=== PATIENT | male | born 1935 | race Caucasian/White ===

== ENCOUNTER 2017-08-28 09:07 | Outpatient (RCR) | payer MEDICARE, SELFPAY ==
[2017-08-28 09:21] LABS: Prothrombin Time Fingerstick 35.1 SEC (11.9-14.4)
== END 2017-08-28 09:08 | disposition home or self-care (01) ==
LOC: LAB 09:07
PROVIDERS: Family Provider Family Medicine; PCP Family Medicine; Visit Provider Internal Medicine Cardiovascular Disease
DX: Z79.01 Long term (current) use of anticoagulants (principal)
CPT/HCPCS: 36416; 85610

== ENCOUNTER → 2017-10-19 13:27 | Outpatient (CLI) | payer MEDICARE, SELFPAY | PROVIDERS: Family Provider Family Medicine; PCP Family Medicine; Visit Provider Family Medicine | DX: L02.91 Cutaneous abscess, unspecified (principal) | CPT/HCPCS: 87070; 87205 ==

== ENCOUNTER 2017-10-20 13:37 | Outpatient (RCR) | payer MEDICARE, SELFPAY ==
[2017-10-20 13:51] LABS: Prothrombin Time Fingerstick 26.9 SEC (11.9-14.4)
== END 2017-10-20 15:00 | disposition home or self-care (01) ==
LOC: LAB 13:37
PROVIDERS: Family Provider Family Medicine; PCP Family Medicine; Visit Provider Internal Medicine Cardiovascular Disease
DX: Z79.01 Long term (current) use of anticoagulants (principal)
CPT/HCPCS: 36416; 85610

== ENCOUNTER 2017-10-30 12:49 | Outpatient (RCR) | payer MEDICARE, SELFPAY ==
[2017-10-30 13:06] LABS: Prothrombin Time Fingerstick 38.3 SEC (11.9-14.4)
== END 2017-10-30 13:00 | disposition home or self-care (01) ==
LOC: LAB 12:49
PROVIDERS: Family Provider Family Medicine; PCP Family Medicine; Visit Provider Internal Medicine Cardiovascular Disease
DX: R69 Illness, unspecified (principal)
CPT/HCPCS: 36416; 85610

== ENCOUNTER 2017-11-06 08:30 | Outpatient (RCR) | payer MEDICARE, SELFPAY ==
[2017-10-23 08:29] VITALS: BP 149/69; PULSE 69; RESP 18; TEMP 37.1; BMI 28.4
--- NOTE | 2017-10-23 10:50 | PCM.WC.HP ---
(1) Hematoma of left lower extremity Status: Acute Current Visit: Yes Qualifiers: Encounter type: initial encounter Qualified Code(s): S80.12XA - Contusion of left lower leg, initial encounter Code(s): S80.12XA - Contusion of left lower leg, initial encounter (2) Hematoma of lower limb Status: Acute Current Visit: Yes Code(s): S80.10XA - Contusion of unspecified lower leg, initial encounter (3) Chronic atrial fibrillation Status: Chronic Current Visit: Yes Code(s): I48.2 - Chronic atrial fibrillation (4) H/O aortic valve replacement Status: Chronic Current Visit: Yes Code(s): Z95.2 - Presence of prosthetic heart valve Comment: 04/30/2001 @ [facility] (5) History of Coumadin therapy Status: Chronic Current Visit: Yes Code(s): Z92.29 - Personal history of other drug therapy History of Present Illness Date of Service: 10/23/17 Chief Complaint: Follow-up on a hematoma on the left lower extremity History of Wound: 81-year-old white male that was shopping in a store on October 15, 2017 when a tile on his lower extremity and caused a bruise. Patient is on Coumadin therapy and therefore it ballooned out. Slight abrasion to the top of the skin and was seen by his family doctor who put a needle and took some blood out and cultured for no bacteria found. His started on antibiotics anyways and told him he needed to go to the wound center. We proceeded to numb the area and I&D it with a 15 blade half-iniguez cut around to extricate the blood clot and closed with 4-0 nylon after much irrigation with normal saline with 4 sutures. She tolerated procedure well will follow up with nurse visit in 1 week for suture removal possibly or in 2 weeks to see if it is healing well. Compression will be applied till healed. 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) Hyperlipidemia (Chronic) Hypertension (Chronic) Atherosclerotic heart disease of [place] coronary artery without angina pectoris (Chronic) H/O aortic valve replacement (Chronic) 04/30/2001 @ [facility] Presence of aortocoronary bypass graft (Chronic) [facility] use of drug (Chronic) Anticoagulants Aortic valve stenosis, rheumatic (Chronic) History of radiofrequency ablation procedure for cardiac arrhythmia (Chronic) Chronic atrial fibrillation (Chronic) Hypokalemia (Chronic) Localized edema (Chronic) History of Coumadin therapy (Chronic) Chronic diastolic heart failure (Chronic) Other secondary pulmonary hypertension (Chronic) Past Medical History: Hematoma lower extremity Allergies/Adverse Reactions: Allergies No Known Allergies Allergy (Verified 10/06/17 14:07) Home Medications: Ambulatory Orders Medication Instructions Recorded Aspirin E.C. [Ecotrin] 81 mg PO QHS 01/12/14 Pravastatin [Pravachol] 80 mg PO QHS 01/12/14 furosemide 40 mg tablet 40 mg PO BREAKFAST 10/01/17 losartan 100 mg tablet 100 mg PO QDAY 10/01/17 losartan 100 mg tablet 100 mg PO QDAY 10/01/17 magnesium oxide 400 mg tablet 400 mg PO BREAKFAST tab 10/01/17 potassium chloride ER 20 mEq 20 meq PO BREAKFAST 10/01/17 tablet,extended release amlodipine 10 mg tablet 10 mg PO QDAY 10/06/17 warfarin 4 mg tablet 4 mg PO QHS 10/06/17 amoxicillin 500 mg capsule 500 mg PO .COMPLEX PRN #4 cap 10/20/17 Lives: Spouse/ Significant Other Smoking Status: Never smoker Tobacco Use: Non-smoker Alcohol: None Drugs: None Review of Systems Constitutional: Denies: Chills, Fever Eyes: Denies: Blurred vision, Drainage, Pain HEENT: Denies: Difficulty Hearing, Difficulty Swallowing, Sore Throat, Visual Changes Cardiovascular: Denies: Chest Pain, Palpitations, Syncope Respiratory: Denies: Cough, Shortness of Breath Gastrointestinal: Denies: Abdominal Pain, Nausea, Vomiting Genitourinary: Denies: Dysuria, Frequency Musculoskeletal: Denies: Joint Pain, Muscle pain Skin: Reports: Wounds - Bump on his lower extremity. Denies: Jaundice, Rash Neurological: Denies: Balance problems, Change in Speech, Difficulty swallowing, Focal weakness Psychiatric: Denies: Anxiety, Depression Endocrine: Denies: Change in Body Habitus Hematologic/ Lymphatic: Denies: Adenopathy - Physical Exam Vital Signs Temp Pulse Resp BP 98.7 F 69 18 149/69 H 10/23/17 08:29 10/23/17 08:29 10/23/17 08:29 10/23/17 08:29 General: Oriented x3, Cooperative, Well developed HEENT: Atraumatic, PERRLA Oral: Moist Mucosa Neck: Supple, No JVD Lungs: Clear to auscultation, Normal air movement Cardiovascular: Regular rate, Regular Rhythm Abdomen: Bowel Sounds Present, Soft, Non Tender, No Hepato-splenomegaly Extremities: No clubbing, Edema Skin: Ulcer/ Wound - A palpable firm hematoma on the right lower extremity Wound Measurements and Assessment WC - Nurse 1 - General Ulcer Measurement Start: 10/23/17 08:07 Freq: Status: Active Protocol: Activity Type Activity Date Activity User E-Sign Co-Sign Detail Recorded Client Recorded Date Recorded By Document 10/23/17 08:29 DV [id number] 10/23/17 08:53 DV 10/23/17 08:29 Wound Center Nurse 1 [Ulcer Assessment] #1 Right [place] -Combined with other wound No -Current Size (cm) - Length 2.5 -Current Size (cm) - Width 1.5 -Current Size (cm) - Depth 0.1 -Total Square Cm 3.75 -Date of Last Picture (Recall this 10/23/17 field) -Photo Taken Yes -Epithelialization None Present -Tunneling No -Undermining/Tunneling No -Circular Undermining No -Classification - Thickness Full Thickness without Exposed Support Structure -Exudate Amt None Present (0 %) -Wound Margin Distinct, Outline Attached -Granulation Amt None Present (0 %) -Granulation Quality N/A -Slough/Fibrin Yes -Necrosis Amt Large (67-100%) -Necrotic Tissue Type Adherent Slough -Structure Exposed N/A -Texture (Nirali-wound Skin Appearance) Assessed Localized Edema -Moisture (Nirali-wound Skin Appearance No Abnormality ) Assessed -Color (Nirali-wound Skin Appearance) Assessed Hemosiderin Staining -Temperature (Nirali-wound Skin No Abnormality Appearance) (Pt Warm) -Ulcer Cleansing Rinsed/ Irrigated with Saline -Foul Odor after Cleansing No -Anesthetic Used 4% Lidocaine Solution [Edema Assessment] -Lower Limb Edema Present Yes -Right Calf (cm) 41.5 -Right Ankle (cm) 24.5 -Left Calf (cm) 38.2 -Left Ankle (cm) 24.0 WC - Nurse 2 - General Ulcer CM Notes Start: 10/23/17 08:07 Freq: Status: Active Protocol: Activity Type Activity Date Activity User E-Sign Co-Sign Detail Recorded Client Recorded Date Recorded By Document 10/23/17 09:24 MW [id number] 10/23/17 09:41 MW 10/23/17 09:24 Wound Center Nurse 2 [Procedure/Treatment] #1 Right [place] -Time 09:24 -Correct Patient Yes -Correct Side, Site, Position Yes -Correct Procedure Yes -Procedure Performed Yes -Type of Procedure Incision & Debridement -Clinical Debridement Subcutaneous -Post Debridement Size (cm) - Length 2.5 -Post Debridement Size (cm) - Width 0.1 -Post Debridement Size (cm) - Depth 0.1 -Total Square Cm 0.25 -Wound/Ulcer Outcome Not Healed -Ulcer Cleansing Rinsed/ Irrigated with Saline -Foul Odor after Cleansing No -Bioengineered Tissue No -Bleeding Controlled with Pressure -Treatment Response Procedure Tolerated Well [See Physician Procedure note for Specifics] Pain Scale: 0-10 Numeric [Pain] -Is Patient Pain Free? Yes Musculoskeletal: No Tenderness to Palpation of Joints or Extremities Lymphatic: No Cervical, Supraclavicular, or Inguinal Adenopathy Neurological: Cranial nerves II-XII grossly intact, Neuro grossly intact Psych/Mental Status: Normal Affect, Appropriate Debridement Note Post-Debridement Measurements/Treatment WC - Nurse 2 - General Ulcer CM Notes Start: 10/23/17 08:07 Freq: Status: Active Protocol: Activity Type Activity Date Activity User E-Sign Co-Sign Detail Recorded Client Recorded Date Recorded By Document 10/23/17 09:24 MW [id number] 10/23/17 09:41 MW 10/23/17 09:24 Wound Center Nurse 2 #1 Right [place] -Time 09:24 -Correct Patient Yes -Correct Side, Site, Position Yes -Correct Procedure Yes -Procedure Performed Yes -Type of Procedure Incision & Debridement -Clinical Debridement Subcutaneous -Post Debridement Size (cm) - Length 2.5 -Post Debridement Size (cm) - Width 0.1 -Post Debridement Size (cm) - Depth 0.1 -Total Square Cm 0.25 -Wound/Ulcer Outcome Not Healed -Ulcer Cleansing Rinsed/ Irrigated with Saline -Foul Odor after Cleansing No -Bioengineered Tissue No -Bleeding Controlled with Pressure -Treatment Response Procedure Tolerated Well Pain Scale: 0-10 Numeric Is Patient Pain Free? Yes Wash the right lower leg with Hibiclens and made a half-iniguez incision 2-1/2 cm long along the edge of the contusion with a 15 blade. Remove the blood clot that was hampering healing and sutured closed after irrigation with normal saline with 4-0 nylon #4 sutures. Patient tolerated well Operative Diagnosis: I&D with a irrigation and suturing Assessment/Plan Active Problems (Last Updated 10/20/17 @ 17:27 by Britney Boyd) Hematoma of left lower extremity (Acute) Hematoma of lower limb (Acute) H/O aortic valve replacement (Chronic) 04/30/2001 @ [facility] Chronic atrial fibrillation (Chronic) History of Coumadin therapy (Chronic) Assessment: Right lower leg hematoma. I&D of a hematoma. Bilateral lower leg edema. A. fib. Coumadin therapy Plan: Wash leg with Hibiclens. Superficial wound care may use Aquacel. Cover with gauze and tape. Follow-up one week with a nurse visit for suture removal if necessary otherwise follow-up in 2 weeks. Double layer Tubigrip with Rui wrap over top for 48 hours then just the Tubigrip
--- NOTE | 2017-10-23 11:01 | HP.PCM_ITS ---
(1) Hematoma of left lower extremity Status: Acute Current Visit: Yes Qualifiers: Encounter type: initial encounter Qualified Code(s): S80.12XA - Contusion of left lower leg, initial encounter Code(s): S80.12XA - Contusion of left lower leg, initial encounter (2) Hematoma of lower limb Status: Acute Current Visit: Yes Code(s): S80.10XA - Contusion of unspecified lower leg, initial encounter (3) Chronic atrial fibrillation Status: Chronic Current Visit: Yes Code(s): I48.2 - Chronic atrial fibrillation (4) H/O aortic valve replacement Status: Chronic Current Visit: Yes Code(s): Z95.2 - Presence of prosthetic heart valve Comment: 04/30/2001 @ [facility] (5) History of Coumadin therapy Status: Chronic Current Visit: Yes Code(s): Z92.29 - Personal history of other drug therapy History of Present Illness Date of Service: 10/23/17 Chief Complaint: Follow-up on a hematoma on the left lower extremity History of Wound: 81-year-old white male that was shopping in a store on October 15, 2017 when a tile on his lower extremity and caused a bruise. Patient is on Coumadin therapy and therefore it ballooned out. Slight abrasion to the top of the skin and was seen by his family doctor who put a needle and took some blood out and cultured for no bacteria found. His started on antibiotics anyways and told him he needed to go to the wound center. We proceeded to numb the area and I&D it with a 15 blade half-iniguez cut around to extricate the blood clot and closed with 4-0 nylon after much irrigation with normal saline with 4 sutures. She tolerated procedure well will follow up with nurse visit in 1 week for suture removal possibly or in 2 weeks to see if it is healing well. Compression will be applied till healed. 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) Hyperlipidemia (Chronic) Hypertension (Chronic) Atherosclerotic heart disease of [place] coronary artery without angina pectoris (Chronic) H/O aortic valve replacement (Chronic) 04/30/2001 @ [facility] Presence of aortocoronary bypass graft (Chronic) [facility] use of drug (Chronic) Anticoagulants Aortic valve stenosis, rheumatic (Chronic) History of radiofrequency ablation procedure for cardiac arrhythmia (Chronic) Chronic atrial fibrillation (Chronic) Hypokalemia (Chronic) Localized edema (Chronic) History of Coumadin therapy (Chronic) Chronic diastolic heart failure (Chronic) Other secondary pulmonary hypertension (Chronic) Past Medical History: Hematoma lower extremity Allergies/Adverse Reactions: Allergies No Known Allergies Allergy (Verified 10/06/17 14:07) Home Medications: Ambulatory Orders Medication Instructions Recorded Aspirin E.C. [Ecotrin] 81 mg PO QHS 01/12/14 Pravastatin [Pravachol] 80 mg PO QHS 01/12/14 furosemide 40 mg tablet 40 mg PO BREAKFAST 10/01/17 losartan 100 mg tablet 100 mg PO QDAY 10/01/17 losartan 100 mg tablet 100 mg PO QDAY 10/01/17 magnesium oxide 400 mg tablet 400 mg PO BREAKFAST tab 10/01/17 potassium chloride ER 20 mEq 20 meq PO BREAKFAST 10/01/17 tablet,extended release amlodipine 10 mg tablet 10 mg PO QDAY 10/06/17 warfarin 4 mg tablet 4 mg PO QHS 10/06/17 amoxicillin 500 mg capsule 500 mg PO .COMPLEX PRN #4 cap 10/20/17 Lives: Spouse/ Significant Other Smoking Status: Never smoker Tobacco Use: Non-smoker Alcohol: None Drugs: None Review of Systems Constitutional: Denies: Chills, Fever Eyes: Denies: Blurred vision, Drainage, Pain HEENT: Denies: Difficulty Hearing, Difficulty Swallowing, Sore Throat, Visual Changes Cardiovascular: Denies: Chest Pain, Palpitations, Syncope Respiratory: Denies: Cough, Shortness of Breath Gastrointestinal: Denies: Abdominal Pain, Nausea, Vomiting Genitourinary: Denies: Dysuria, Frequency Musculoskeletal: Denies: Joint Pain, Muscle pain Skin: Reports: Wounds - Bump on his lower extremity. Denies: Jaundice, Rash Neurological: Denies: Balance problems, Change in Speech, Difficulty swallowing , Focal weakness Psychiatric: Denies: Anxiety, Depression Endocrine: Denies: Change in Body Habitus Hematologic/ Lymphatic: Denies: Adenopathy - Physical Exam Vital Signs Temp Pulse Resp BP 98.7 F 69 18 149/69 H 10/23/17 08:29 10/23/17 08:29 10/23/17 08:29 10/23/17 08:29 General: Oriented x3, Cooperative, Well developed HEENT: Atraumatic, PERRLA Oral: Moist Mucosa Neck: Supple, No JVD Lungs: Clear to auscultation, Normal air movement Cardiovascular: Regular rate, Regular Rhythm Abdomen: Bowel Sounds Present, Soft, Non Tender, No Hepato-splenomegaly Extremities: No clubbing, Edema Skin: Ulcer/ Wound - A palpable firm hematoma on the right lower extremity Wound Measurements and Assessment WC - Nurse 1 - General Ulcer Measurement Start: 10/23/17 08:07 Freq: Status: Active Protocol: Activity Type Activity Date Activity User E-Sign Co-Sign Detail Recorded Client Recorded Date Recorded By Document 10/23/17 08:29 DV [id number] 10/23/17 08:53 DV 10/23/17 08:29 Wound Center Nurse 1 [Ulcer Assessment] #1 Right [place] -Combined with other wound No -Current Size (cm) - Length 2.5 -Current Size (cm) - Width 1.5 -Current Size (cm) - Depth 0.1 -Total Square Cm 3.75 -Date of Last Picture (Recall this 10/23/17 field) -Photo Taken Yes -Epithelialization None Present -Tunneling No -Undermining/Tunneling No -Circular Undermining No -Classification - Thickness Full Thickness without Exposed Support Structure -Exudate Amt None Present (0 %) -Wound Margin Distinct, Outline Attached -Granulation Amt None Present (0 %) -Granulation Quality N/A -Slough/Fibrin Yes -Necrosis Amt Large (67-100%) -Necrotic Tissue Type Adherent Slough -Structure Exposed N/A -Texture (Nirali-wound Skin Appearance) Assessed Localized Edema -Moisture (Nirali-wound Skin Appearance No Abnormality ) Assessed -Color (Nirali-wound Skin Appearance) Assessed Hemosiderin Staining -Temperature (Nirali-wound Skin No Abnormality Appearance) (Pt Warm) -Ulcer Cleansing Rinsed/ Irrigated with Saline -Foul Odor after Cleansing No -Anesthetic Used 4% Lidocaine Solution [Edema Assessment] -Lower Limb Edema Present Yes -Right Calf (cm) 41.5 -Right Ankle (cm) 24.5 -Left Calf (cm) 38.2 -Left Ankle (cm) 24.0 WC - Nurse 2 - General Ulcer CM Notes Start: 10/23/17 08:07 Freq: Status: Active Protocol: Activity Type Activity Date Activity User E-Sign Co-Sign Detail Recorded Client Recorded Date Recorded By Document 10/23/17 09:24 MW [id number] 10/23/17 09:41 MW 10/23/17 09:24 Wound Center Nurse 2 [Procedure/Treatment] #1 Right [place] -Time 09:24 -Correct Patient Yes -Correct Side, Site, Position Yes -Correct Procedure Yes -Procedure Performed Yes -Type of Procedure Incision & Debridement -Clinical Debridement Subcutaneous -Post Debridement Size (cm) - Length 2.5 -Post Debridement Size (cm) - Width 0.1 -Post Debridement Size (cm) - Depth 0.1 -Total Square Cm 0.25 -Wound/Ulcer Outcome Not Healed -Ulcer Cleansing Rinsed/ Irrigated with Saline -Foul Odor after Cleansing No -Bioengineered Tissue No -Bleeding Controlled with Pressure -Treatment Response Procedure Tolerated Well [See Physician Procedure note for Specifics] Pain Scale: 0-10 Numeric [Pain] -Is Patient Pain Free? Yes Musculoskeletal: No Tenderness to Palpation of Joints or Extremities Lymphatic: No Cervical, Supraclavicular, or Inguinal Adenopathy Neurological: Cranial nerves II-XII grossly intact, Neuro grossly intact Psych/Mental Status: Normal Affect, Appropriate Debridement Note Post-Debridement Measurements/Treatment WC - Nurse 2 - General Ulcer CM Notes Start: 10/23/17 08:07 Freq: Status: Active Protocol: Activity Type Activity Date Activity User E-Sign Co-Sign Detail Recorded Client Recorded Date Recorded By Document 10/23/17 09:24 MW [id number] 10/23/17 09:41 MW 10/23/17 09:24 Wound Center Nurse 2 #1 Right [place] -Time 09:24 -Correct Patient Yes -Correct Side, Site, Position Yes -Correct Procedure Yes -Procedure Performed Yes -Type of Procedure Incision & Debridement -Clinical Debridement Subcutaneous -Post Debridement Size (cm) - Length 2.5 -Post Debridement Size (cm) - Width 0.1 -Post Debridement Size (cm) - Depth 0.1 -Total Square Cm 0.25 -Wound/Ulcer Outcome Not Healed -Ulcer Cleansing Rinsed/ Irrigated with Saline -Foul Odor after Cleansing No -Bioengineered Tissue No -Bleeding Controlled with Pressure -Treatment Response Procedure Tolerated Well Pain Scale: 0-10 Numeric Is Patient Pain Free? Yes Wash the right lower leg with Hibiclens and made a half-iniguez incision 2-1/2 cm long along the edge of the contusion with a 15 blade. Remove the blood clot that was hampering healing and sutured closed after irrigation with normal saline with 4-0 nylon #4 sutures. Patient tolerated well Operative Diagnosis: I&D with a irrigation and suturing Assessment/Plan Active Problems (Last Updated 10/20/17 @ 17:27 by Britney Boyd) Hematoma of left lower extremity (Acute) Hematoma of lower limb (Acute) H/O aortic valve replacement (Chronic) 04/30/2001 @ [facility] Chronic atrial fibrillation (Chronic) History of Coumadin therapy (Chronic) Assessment: Right lower leg hematoma. I&D of a hematoma. Bilateral lower leg edema. A. fib. Coumadin therapy Plan: Wash leg with Hibiclens. Superficial wound care may use Aquacel. Cover with gauze and tape. Follow-up one week with a nurse visit for suture removal if necessary otherwise follow-up in 2 weeks. Double layer Tubigrip with Rui wrap over top for 48 hours then just the Tubigrip
[2017-10-30 12:37] VITALS: BP 149/78; PULSE 92; RESP 16; TEMP 36.4; BMI 28.4
[2017-11-06 08:46] VITALS: BP 152/74; PULSE 81; RESP 18; TEMP 36.8; BMI 28.4
--- NOTE | 2017-11-06 09:58 | PN.PCM_ITS ---
(1) Hematoma of left lower extremity Status: Acute Current Visit: Yes Qualifiers: Encounter type: initial encounter Qualified Code(s): S80.12XA - Contusion of left lower leg, initial encounter Code(s): S80.12XA - Contusion of left lower leg, initial encounter (2) Hematoma of lower limb Status: Acute Current Visit: Yes Code(s): S80.10XA - Contusion of unspecified lower leg, initial encounter (3) Chronic atrial fibrillation Status: Chronic Current Visit: Yes Code(s): I48.2 - Chronic atrial fibrillation (4) H/O aortic valve replacement Status: Chronic Current Visit: Yes Code(s): Z95.2 - Presence of prosthetic heart valve Comment: 04/30/2001 @ [facility] (5) History of Coumadin therapy Status: Chronic Current Visit: Yes Code(s): Z92.29 - Personal history of other drug therapy Type of Wound Date of Service: 11/06/17 Chief Complaint: Follow-up on a hematoma on the left lower extremity History of Wound: 81-year-old white male that was shopping in a store on October 15, 2017 when a tile on his lower extremity and caused a bruise. Patient is on Coumadin therapy and therefore it ballooned out. Slight abrasion to the top of the skin and was seen by his family doctor who put a needle and took some blood out and cultured for no bacteria found. His started on antibiotics anyways and told him he needed to go to the wound center. We proceeded to numb the area and I&D it with a 15 blade half-iniguez cut around to extricate the blood clot and closed with 4-0 nylon after much irrigation with normal saline with 4 sutures. She tolerated procedure well will follow up with nurse visit in 1 week for suture removal possibly or in 2 weeks to see if it is healing well. Compression will be applied till healed. Progress of Wound: Last week the 4 sutures were removed patient tolerated well skin well approximated. Now patient has a hardened good scab over top it is not soft or mushy. No odors slight redness around the area but no pain or warmth to touch. She is leaving town for approximately 5 weeks to go to [place] will follow up with patient when he returns. Patient was advised to dry the scab before going to use povidone iodine and just the scab area not on the good skin cover with a dry dressing and continue using the double layer Tubigrip's until healed follow-up in 5 weeks. - Physical Exam Vital Signs Temp Pulse Resp BP 98.2 F 81 18 152/74 H 11/06/17 08:46 11/06/17 08:46 11/06/17 08:46 11/06/17 08:46 General: Oriented x3, Cooperative, Well developed HEENT: Atraumatic, PERRLA Oral: Moist Mucosa Neck: Supple, No JVD Lungs: Clear to auscultation, Normal air movement Cardiovascular: Regular rate, Regular Rhythm Abdomen: Bowel Sounds Present, Soft, Non Tender, No Hepato-splenomegaly Extremities: No clubbing, No edema, - - Right diaz traumatic other Skin: Ulcer/ Wound Wound Measurements and Assessment WC - Nurse 1 - General Ulcer Measurement Start: 10/23/17 08:07 Freq: Status: Active Protocol: Activity Type Activity Date Activity User E-Sign Co-Sign Detail Recorded Client Recorded Date Recorded By Document 11/06/17 08:46 [id number] 11/06/17 08:47 11/06/17 08:46 Wound Center Nurse 1 [Ulcer Assessment] #1 Right Diaz -Combined with other wound No -Current Size (cm) - Length 2.7 -Current Size (cm) - Width 1.8 -Current Size (cm) - Depth 0.1 -Total Square Cm 4.86 -Photo Taken No -Epithelialization None Present -Tunneling No -Undermining/Tunneling No -Circular Undermining No -Classification - Thickness Full Thickness without Exposed Support Structure -Exudate Amt Small (1-33%) -Exudate Type Serosanguineous -Wound Margin Distinct, Outline Attached -Granulation Amt None Present (0 %) -Granulation Quality N/A -Slough/Fibrin Yes -Necrosis Amt Large (67-100%) -Necrotic Tissue Type Eschar -Structure Exposed Fascia Fat Layer Exposed -Texture (Nirali-wound Skin Appearance) Localized Edema Scarring -Moisture (Nirali-wound Skin Appearance Dry/Scaly ) -Color (Nirali-wound Skin Appearance) Erythema -Temperature (Nirali-wound Skin No Abnormality Appearance) (Pt Warm) -Tenderness on Palpation (Nirali-wound No Skin Appearance) -Ulcer Cleansing Rinsed/ Irrigated with Saline -Foul Odor after Cleansing No -Anesthetic Used 5% Lidocaine Gel [Edema Assessment] -Lower Limb Edema Present Yes -Right Calf (cm) 38.0 -Right Ankle (cm) 23.5 WC - Nurse 2 - General Ulcer CM Notes Start: 10/23/17 08:07 Freq: Status: Active Protocol: Activity Type Activity Date Activity User E-Sign Co-Sign Detail Recorded Client Recorded Date Recorded By Document 11/06/17 09:24 MW [id number] 11/06/17 09:25 MW 11/06/17 09:24 Wound Center Nurse 2 [Procedure/Treatment] #1 Right Diaz -Time 09:24 -Correct Patient Yes -Correct Side, Site, Position Yes -Correct Procedure Yes -Procedure Performed No -Post Debridement Size (cm) - Length 2.7 -Post Debridement Size (cm) - Width 1.7 -Post Debridement Size (cm) - Depth 0.1 -Total Square Cm 4.59 -Wound/Ulcer Outcome Not Healed -Ulcer Cleansing Rinsed/ Irrigated with Saline -Foul Odor after Cleansing No -Bleeding Controlled with NA -Treatment Response Procedure Tolerated Well [See Physician Procedure note for Specifics] Pain Scale: 0-10 Numeric [Pain] -Is Patient Pain Free? Yes Musculoskeletal: No Tenderness to Palpation of Joints or Extremities Lymphatic: No Cervical, Supraclavicular, or Inguinal Adenopathy Neurological: Cranial nerves II-XII grossly intact, Neuro grossly intact Psych/Mental Status: Normal Affect, Appropriate, Alert and oriented to time, place, person, mood and affect Debridement Note Post-Debridement Measurements/Treatment - Nurse 2 - General Ulcer CM Notes Start: 10/23/17 08:07 Freq: Status: Active Protocol: Activity Type Activity Date Activity User E-Sign Co-Sign Detail Recorded Client Recorded Date Recorded By Document 10/23/17 09:24 MW [id number] 10/23/17 09:41 MW Document 11/06/17 09:24 MW [id number] 11/06/17 09:25 MW 10/23/17 11/06/17 09:24 09:24 Wound Center Nurse 2 #1 Right Diaz -Time 09:24 09:24 -Correct Patient Yes Yes -Correct Side, Site, Position Yes Yes -Correct Procedure Yes Yes -Procedure Performed Yes No -Type of Procedure Incision & Debridement -Clinical Debridement Subcutaneous -Post Debridement Size (cm) - Length 2.5 2.7 -Post Debridement Size (cm) - Width 0.1 1.7 -Post Debridement Size (cm) - Depth 0.1 0.1 -Total Square Cm 0.25 4.59 -Wound/Ulcer Outcome Not Healed Not Healed -Ulcer Cleansing Rinsed/ Rinsed/ Irrigated with Irrigated with Saline Saline -Foul Odor after Cleansing No No -Bioengineered Tissue No -Bleeding Controlled with Pressure NA -Treatment Response Procedure Procedure Tolerated Well Tolerated Well Pain Scale: 0-10 Numeric Is Patient Pain Free? Yes Yes No debridement was completed today Assessment/Plan Active Problems (Last Updated 10/20/17 @ 17:27 by Britney Boyd) Hematoma of left lower extremity (Acute) Hematoma of lower limb (Acute) H/O aortic valve replacement (Chronic) 04/30/2001 @ [facility] Chronic atrial fibrillation (Chronic) History of Coumadin therapy (Chronic) Assessment: Right lower leg hematoma. I&D of a hematoma. Bilateral lower leg edema. A. fib. Coumadin therapy Plan: Use povidone iodine to the scab area only daily. Cover with dry dressing. Continue wearing double layer Tubigrip's. Follow-up in 5 weeks
== END 2017-11-21 23:59 ==
LOC: WC 08:30
PROVIDERS: Family Provider Family Medicine; PCP Family Medicine; Visit Provider Nurse Practitioner
DX: S80.11XA Contusion of right lower leg, initial encounter (principal); X58.XXXA Exposure to other specified factors, initial encounter; Y93.89 Activity, other specified; Y92.512 Supermarket, store or market as the place of occurrence of the external cause; I48.2 Chronic atrial fibrillation; Z95.2 Presence of prosthetic heart valve
CPT/HCPCS: 10060; 36416; 85610; 99203; 99213; G0463

== ENCOUNTER 2017-12-11 08:11 | Outpatient (RCR) | payer MEDICARE, SELFPAY ==
[2017-11-22 01:05] VITALS: PULSE 81; RESP 18; TEMP 36.8
[2017-12-11 08:33] VITALS: BP 148/72; PULSE 81; RESP 16; TEMP 36.4
--- NOTE | 2017-12-11 09:14 | PCM.WC.PN ---
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 Current Visit: Yes Code(s): L97.929 - Non-pressure chronic ulcer of unspecified part of left lower leg with unspecified severity (2) Hematoma of left lower extremity Status: Acute Current Visit: No Qualifiers: Code(s): S80.12XA - Contusion of left lower leg, initial encounter (3) Chronic atrial fibrillation Status: Chronic Current Visit: Yes Code(s): I48.2 - Chronic atrial fibrillation (4) Hypertension Status: Chronic Current Visit: Yes Qualifiers: Code(s): I10 - Essential (primary) hypertension (5) Localized edema Status: Chronic Current Visit: Yes Code(s): R60.0 - Localized edema (6) USP current use of anticoagulant Status: Chronic Current Visit: Yes 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 Patient is on Coumadin therapy and therefore it ballooned out. Slight abrasion to the top of the skin and was seen by his family doctor who put a needle and took some blood out and cultured for no bacteria found. His started on antibiotics anyways and told him he needed to go to the wound center. We proceeded to numb the area and I&D it with a 15 blade half-iniguez cut around to extricate the blood clot and closed with 4-0 nylon after much irrigation with normal saline with 4 sutures. She tolerated procedure well will follow up with nurse visit in 1 week for suture removal possibly or in 2 weeks to see if it is healing well. Compression will be applied till healed. Progress of Wound: Patient has been gone for 4 weeks because he went to [place] on vacation and just returned with now an open ulcer on the left lower diaz. Patient states was taking a shower and the scab fell off and now he has an open ulcer with swelling and went to his family doctor and he was put on cephalexin. - Physical Exam Vital Signs Temp Pulse Resp BP 97.5 F L 81 16 148/72 H 12/11/17 08:33 12/11/17 08:33 12/11/17 08:33 12/11/17 08:33 General: Oriented x3, Cooperative, Well developed HEENT: Atraumatic, PERRLA Oral: Moist Mucosa Neck: Supple, No JVD Lungs: Clear to auscultation, Normal air movement Cardiovascular: Regular rate, Regular Rhythm Abdomen: Bowel Sounds Present, Soft, Non Tender, No Hepato-splenomegaly Extremities: No clubbing, No edema Skin: Ulcer/ Wound - Left lower leg ulcer nonhealing Wound Measurements and Assessment WC - Nurse 1 - General Ulcer Measurement Start: 12/11/17 08:32 Freq: Status: Active Protocol: Activity Type Activity Date Activity User E-Sign Co-Sign Detail Recorded Client Recorded Date Recorded By Document 12/11/17 08:33 DV [id number] 12/11/17 08:40 DV 12/11/17 08:33 Wound Center Nurse 1 [Ulcer Assessment] #2 RIGHT DIAZ -Combined with other wound No -Current Size (cm) - Length 2.1 -Current Size (cm) - Width 1.9 -Current Size (cm) - Depth 0.3 -Total Square Cm 3.99 -Date of Last Picture (Recall this 12/11/17 field) -Photo Taken Yes -Epithelialization None Present -Tunneling No -Undermining/Tunneling No -Circular Undermining No -Classification - Thickness Full Thickness without Exposed Support Structure -Exudate Amt Large (67-100%) -Exudate Type Serous -Wound Margin Distinct, Outline Attached -Granulation Amt None Present (0 %) -Granulation Quality N/A -Slough/Fibrin Yes -Necrosis Amt Large (67-100%) -Necrotic Tissue Type Adherent Slough -Structure Exposed None/Limited to Skin Breakdown -Texture (Nirali-wound Skin Appearance) Assessed Localized Edema -Moisture (Nirali-wound Skin Appearance Assessed ) Weeping -Color (Nirali-wound Skin Appearance) Assessed Erythema -Temperature (Nirali-wound Skin No Abnormality Appearance) (Pt Warm) -Tenderness on Palpation (Nirali-wound No Skin Appearance) -Ulcer Cleansing Rinsed/ Irrigated with Saline -Foul Odor after Cleansing No -Anesthetic Used 4% Lidocaine Solution [Edema Assessment] -Lower Limb Edema Present Yes -Right Calf (cm) 42.0 -Right Ankle (cm) 23.5 WC - Nurse 2 - General Ulcer CM Notes Start: 12/11/17 08:32 Freq: Status: Active Protocol: Activity Type Activity Date Activity User E-Sign Co-Sign Detail Recorded Client Recorded Date Recorded By Document 12/11/17 08:59 MW [id number] 12/11/17 09:06 MW 12/11/17 08:59 Wound Center Nurse 2 [Procedure/Treatment] #2 RIGHT DIAZ -Time 09:00 -Correct Patient Yes -Correct Side, Site, Position Yes -Correct Procedure Yes -Procedure Performed Yes -Type of Procedure Debridement -Clinical Debridement Subcutaneous -Post Debridement Size (cm) - Length 2.5 -Post Debridement Size (cm) - Width 1.3 -Post Debridement Size (cm) - Depth 0.3 -Total Square Cm 3.25 -Wound/Ulcer Outcome Not Healed -Ulcer Cleansing Rinsed/ Irrigated with Saline -Foul Odor after Cleansing No -Bioengineered Tissue No -Bleeding Controlled with Pressure -Treatment Response Procedure Tolerated Well [See Physician Procedure note for Specifics] Pain Scale: 0-10 Numeric [Pain] -Is Patient Pain Free? Yes Musculoskeletal: No Tenderness to Palpation of Joints or Extremities Lymphatic: No Cervical, Supraclavicular, or Inguinal Adenopathy Neurological: Cranial nerves II-XII grossly intact, Neuro grossly intact Psych/Mental Status: Normal Affect, Appropriate, Alert and oriented to time, place, person, mood and affect Debridement Note Post-Debridement Measurements/Treatment WC - Nurse 2 - General Ulcer CM Notes Start: 12/11/17 08:32 Freq: Status: Active Protocol: Activity Type Activity Date Activity User E-Sign Co-Sign Detail Recorded Client Recorded Date Recorded By Document 12/11/17 08:59 MW [id number] 12/11/17 09:06 MW 12/11/17 08:59 Wound Center Nurse 2 #2 RIGHT DIAZ -Time 09:00 -Correct Patient Yes -Correct Side, Site, Position Yes -Correct Procedure Yes -Procedure Performed Yes -Type of Procedure Debridement -Clinical Debridement Subcutaneous -Post Debridement Size (cm) - Length 2.5 -Post Debridement Size (cm) - Width 1.3 -Post Debridement Size (cm) - Depth 0.3 -Total Square Cm 3.25 -Wound/Ulcer Outcome Not Healed -Ulcer Cleansing Rinsed/ Irrigated with Saline -Foul Odor after Cleansing No -Bioengineered Tissue No -Bleeding Controlled with Pressure -Treatment Response Procedure Tolerated Well Pain Scale: 0-10 Numeric Is Patient Pain Free? 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 I&D of a hematoma. Bilateral lower leg edema. A. fib. Coumadin therapy Plan: Wash leg with Hibiclens. Superficial wound care may use promogran moistened. Cover with gauze and tape. otherwise follow-up in 2 weeks. Double layer Tubigrip
--- NOTE | 2017-12-11 09:25 | PN.PCM_ITS ---
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 Current Visit: Yes Code(s): L97.929 - Non-pressure chronic ulcer of unspecified part of left lower leg with unspecified severity (2) Hematoma of left lower extremity Status: Acute Current Visit: No Qualifiers: Code(s): S80.12XA - Contusion of left lower leg, initial encounter (3) Chronic atrial fibrillation Status: Chronic Current Visit: Yes Code(s): I48.2 - Chronic atrial fibrillation (4) Hypertension Status: Chronic Current Visit: Yes Qualifiers: Code(s): I10 - Essential (primary) hypertension (5) Localized edema Status: Chronic Current Visit: Yes Code(s): R60.0 - Localized edema (6) 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 Patient is on Coumadin therapy and therefore it ballooned out. Slight abrasion to the top of the skin and was seen by his family doctor who put a needle and took some blood out and cultured for no bacteria found. His started on antibiotics anyways and told him he needed to go to the wound center. We proceeded to numb the area and I&D it with a 15 blade half-iniguez cut around to extricate the blood clot and closed with 4-0 nylon after much irrigation with normal saline with 4 sutures. She tolerated procedure well will follow up with nurse visit in 1 week for suture removal possibly or in 2 weeks to see if it is healing well. Compression will be applied till healed. Progress of Wound: Patient has been gone for 4 weeks because he went to [place] on vacation and just returned with now an open ulcer on the left lower diaz. Patient states was taking a shower and the scab fell off and now he has an open ulcer with swelling and went to his family doctor and he was put on cephalexin. - Physical Exam Vital Signs Temp Pulse Resp BP 97.5 F L 81 16 148/72 H 12/11/17 08:33 12/11/17 08:33 12/11/17 08:33 12/11/17 08:33 General: Oriented x3, Cooperative, Well developed HEENT: Atraumatic, PERRLA Oral: Moist Mucosa Neck: Supple, No JVD Lungs: Clear to auscultation, Normal air movement Cardiovascular: Regular rate, Regular Rhythm Abdomen: Bowel Sounds Present, Soft, Non Tender, No Hepato-splenomegaly Extremities: No clubbing, No edema Skin: Ulcer/ Wound - Left lower leg ulcer nonhealing Wound Measurements and Assessment WC - Nurse 1 - General Ulcer Measurement Start: 12/11/17 08:32 Freq: Status: Active Protocol: Activity Type Activity Date Activity User E-Sign Co-Sign Detail Recorded Client Recorded Date Recorded By Document 12/11/17 08:33 DV [id number] 12/11/17 08:40 DV 12/11/17 08:33 Wound Center Nurse 1 [Ulcer Assessment] #2 RIGHT DIAZ -Combined with other wound No -Current Size (cm) - Length 2.1 -Current Size (cm) - Width 1.9 -Current Size (cm) - Depth 0.3 -Total Square Cm 3.99 -Date of Last Picture (Recall this 12/11/17 field) -Photo Taken Yes -Epithelialization None Present -Tunneling No -Undermining/Tunneling No -Circular Undermining No -Classification - Thickness Full Thickness without Exposed Support Structure -Exudate Amt Large (67-100%) -Exudate Type Serous -Wound Margin Distinct, Outline Attached -Granulation Amt None Present (0 %) -Granulation Quality N/A -Slough/Fibrin Yes -Necrosis Amt Large (67-100%) -Necrotic Tissue Type Adherent Slough -Structure Exposed None/Limited to Skin Breakdown -Texture (Nirali-wound Skin Appearance) Assessed Localized Edema -Moisture (Nirali-wound Skin Appearance Assessed ) Weeping -Color (Nirali-wound Skin Appearance) Assessed Erythema -Temperature (Nirali-wound Skin No Abnormality Appearance) (Pt Warm) -Tenderness on Palpation (Nirali-wound No Skin Appearance) -Ulcer Cleansing Rinsed/ Irrigated with Saline -Foul Odor after Cleansing No -Anesthetic Used 4% Lidocaine Solution [Edema Assessment] -Lower Limb Edema Present Yes -Right Calf (cm) 42.0 -Right Ankle (cm) 23.5 WC - Nurse 2 - General Ulcer CM Notes Start: 12/11/17 08:32 Freq: Status: Active Protocol: Activity Type Activity Date Activity User E-Sign Co-Sign Detail Recorded Client Recorded Date Recorded By Document 12/11/17 08:59 MW [id number] 12/11/17 09:06 MW 12/11/17 08:59 Wound Center Nurse 2 [Procedure/Treatment] #2 RIGHT DIAZ -Time 09:00 -Correct Patient Yes -Correct Side, Site, Position Yes -Correct Procedure Yes -Procedure Performed Yes -Type of Procedure Debridement -Clinical Debridement Subcutaneous -Post Debridement Size (cm) - Length 2.5 -Post Debridement Size (cm) - Width 1.3 -Post Debridement Size (cm) - Depth 0.3 -Total Square Cm 3.25 -Wound/Ulcer Outcome Not Healed -Ulcer Cleansing Rinsed/ Irrigated with Saline -Foul Odor after Cleansing No -Bioengineered Tissue No -Bleeding Controlled with Pressure -Treatment Response Procedure Tolerated Well [See Physician Procedure note for Specifics] Pain Scale: 0-10 Numeric [Pain] -Is Patient Pain Free? Yes Musculoskeletal: No Tenderness to Palpation of Joints or Extremities Lymphatic: No Cervical, Supraclavicular, or Inguinal Adenopathy Neurological: Cranial nerves II-XII grossly intact, Neuro grossly intact Psych/Mental Status: Normal Affect, Appropriate, Alert and oriented to time, place, person, mood and affect Debridement Note Post-Debridement Measurements/Treatment WC - Nurse 2 - General Ulcer CM Notes Start: 12/11/17 08:32 Freq: Status: Active Protocol: Activity Type Activity Date Activity User E-Sign Co-Sign Detail Recorded Client Recorded Date Recorded By Document 12/11/17 08:59 MW [id number] 12/11/17 09:06 MW 12/11/17 08:59 Wound Center Nurse 2 #2 RIGHT DIAZ -Time 09:00 -Correct Patient Yes -Correct Side, Site, Position Yes -Correct Procedure Yes -Procedure Performed Yes -Type of Procedure Debridement -Clinical Debridement Subcutaneous -Post Debridement Size (cm) - Length 2.5 -Post Debridement Size (cm) - Width 1.3 -Post Debridement Size (cm) - Depth 0.3 -Total Square Cm 3.25 -Wound/Ulcer Outcome Not Healed -Ulcer Cleansing Rinsed/ Irrigated with Saline -Foul Odor after Cleansing No -Bioengineered Tissue No -Bleeding Controlled with Pressure -Treatment Response Procedure Tolerated Well Pain Scale: 0-10 Numeric Is Patient Pain Free? 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 I&D of a hematoma. Bilateral lower leg edema. A. fib. Coumadin therapy Plan: Wash leg with Hibiclens. Superficial wound care may use promogran moistened. Cover with gauze and tape. otherwise follow-up in 2 weeks. Double layer Tubigrip
== END 2017-12-21 23:59 ==
LOC: WC 08:11
PROVIDERS: Family Provider Family Medicine; PCP Family Medicine; Visit Provider Nurse Practitioner
DX: L97.821 Non-pressure chronic ulcer of other part of left lower leg limited to breakdown of skin (principal); I48.2 Chronic atrial fibrillation; I10 Essential (primary) hypertension; Z79.01 Long term (current) use of anticoagulants; S80.12XA Contusion of left lower leg, initial encounter; X58.XXXA Exposure to other specified factors, initial encounter; R60.0 Localized edema
CPT/HCPCS: 11042; 87070; 87075; 87077; 87186; 87205

== ENCOUNTER 2017-12-21 13:52 | Outpatient (RCR) | payer MEDICARE, SELFPAY ==
[2017-12-11 09:45] LABS: Prothrombin Time Fingerstick 22.2 SEC (11.9-14.4)
[2017-12-15 08:51] LABS: Prothrombin Time Fingerstick 22.9 SEC (11.9-14.4)
[2017-12-21 15:08] LABS: International Normalized Ratio 3.3; Prothrombin Time (Protime)PT. 33.8 SECONDS (11.7-14.9)
[2017-12-21 15:41] LABS: CRP 9.61 mg/L (0.0-3.0)
[2017-12-21 15:49] LABS: Absolute Lymphocyte Count 1.56 X10^3/ul (0.83-4.51); Absolute Neutrophil Count 8.7 X10^3/uL (2.0-7.7); Basophil# 0.07 X10^3/uL; Basophil% 0.6 % (0-1); Eosinophil# 0.15 X10^3/uL; Eosinophils% 1.3 % (0-5); Hematocrit 35.8 % (40-54); Lymphocyte # 1.56 X10^3/ul (4.0); Lymphocyte % 13.2 % (19-41); Mean Corp Hgb Conc 33.5 g/gl (32-36); Mean Corpuscular Hgb 30.7 pg (27.0-32.0); Mean Corpuscular Volume 91.6 fL (80-94); Mean Platelet Vol. 9.7 fl (6.2-12.0); Monocyte# 1.27 X10^3/uL; Monocyte% 10.8 % (0-10); Neutrophil # 8.69 X10^3/uL (2.7-7.7); Neutrophil % 73.7 % (47-70); Platelet Count 280 K/mm3 (150-450); RBC Distribution Width CV 13.9 % (11.6-14.6); Red Blood Count 3.91 M/mm3 (4.6-6.2); White Blood Count 11.8 K/mm3 (4.4-11.0)
[2017-12-21 15:50] LABS: POSITIVE COUNT NO; POSITIVE DIFFERENTIAL NO; POSITIVE MORPHOLOGY NO
[2017-12-21 15:51] LABS: Erythrocyte Sedimentation Rate 12 mm/hr (0-20)
== END 2017-12-21 14:00 | disposition home or self-care (01) ==
LOC: LAB 13:52
PROVIDERS: Family Provider Family Medicine; PCP Family Medicine; Visit Provider Internal Medicine Cardiovascular Disease
DX: Z79.01 Long term (current) use of anticoagulants (principal)
CPT/HCPCS: 36415; 36416; 85025; 85610; 85652; 86140

== ENCOUNTER → 2017-12-21 14:36 | Outpatient (CLI) | payer MEDICARE, SELFPAY ==
--- NOTE | 2017-12-21 14:41 | VDLE_ITS ---
Reason For Study: LEG PAIN RIGHT LEFT GSV is normal. CFV is compressible, spontaneous, phasic, CFV is compressible, spontaneous, phasic, competent, and demonstrates normal competent and demonstrates normal augmentation. augmentation. FV is compressible, spontaneous, phasic, competent and demonstrates normal augmentation. POP V is compressible, spontaneous, phasic, competent and demonstrates normal augmentation. T/P Trunk is compressible. PTV is compressible. RT PerV is compressible. Procedure Exam performed in department. A preliminary report was called and/or faxed to Dr. Cortez. Interpretation Summary Deep veins of the right lower extremity are patent and compressible segmentally. There is no evidence of right lower extremity deep vein thrombosis. Valvular competence appears intact within the proximal deep venous system on the right . The right greater saphenous vein appears patent and compressible segmentally. Ordering Physician: Michael Cortez Referring Physician: Michael Cortez Performed By: Caryn Ledbetter RVT
== END ==
PROVIDERS: Family Provider Family Medicine; PCP Family Medicine; Visit Provider Family Medicine
DX: L03.115 Cellulitis of right lower limb (principal); Z79.01 Long term (current) use of anticoagulants
CPT/HCPCS: 36415; 36416; 85025; 85610; 85652; 86140; 93971

== ENCOUNTER 2017-12-31 13:56 | Outpatient (RCR) | payer MEDICARE, SELFPAY ==
[2017-12-31 14:11] LABS: Prothrombin Time Fingerstick 30.7 SEC (11.9-14.4)
== END 2017-12-31 14:00 | disposition home or self-care (01) ==
LOC: LAB 13:56
PROVIDERS: Family Provider Family Medicine; PCP Family Medicine; Visit Provider Internal Medicine Cardiovascular Disease
DX: Z79.01 Long term (current) use of anticoagulants (principal)
CPT/HCPCS: 36416; 85610

== ENCOUNTER 2018-01-11 11:33 | Outpatient (RCR) | payer MEDICARE, SELFPAY ==
[2018-01-11 13:21] LABS: International Normalized Ratio 1.9; Prothrombin Time (Protime)PT. 21.9 SECONDS (11.7-14.9)
== END 2018-01-11 12:00 | disposition home or self-care (01) ==
LOC: LAB 11:33
PROVIDERS: Family Provider Family Medicine; PCP Family Medicine; Visit Provider Internal Medicine Cardiovascular Disease
DX: Z79.01 Long term (current) use of anticoagulants (principal)
CPT/HCPCS: 36415; 85610

== ENCOUNTER 2018-01-14 08:30 | Outpatient (RCR) | payer MEDICARE, SELFPAY ==
[2017-12-22 00:51] VITALS: PULSE 81; RESP 16; TEMP 36.4
[2017-12-24 12:48] VITALS: BP 148/76; PULSE 84; RESP 16; TEMP 37.4
--- NOTE | 2017-12-24 19:02 | PCM.WC.HP ---
(1) Ulcer of right lower extremity with fat layer exposed Status: Acute Current Visit: Yes Code(s): L97.912 - Non-pressure chronic ulcer of unspecified part of right lower leg with fat layer exposed (2) Hematoma of lower limb Status: Acute Current Visit: No Code(s): S80.10XA - Contusion of unspecified lower leg, initial encounter (3) History of Coumadin therapy Status: Chronic Current Visit: No Code(s): Z92.29 - Personal history of other drug therapy History of Present Illness Date of Service: 12/24/17 Chief Complaint: Right Lower extremity wound. History of Wound: Mr. Ruth is an 82yo woman who has been seen here by Kia Maciel NP for healing left lower extremity wound. Sustained a wound several months ago after a tile fell on his leg. Initially developed hematoma which was excised here in the wound center he is subsequently had wound care. Wound is slowly progressed. He has been on antibiotics due to culture positive growth. He denies any complaints at this time. There is no significant pain at the site or discharge noted. 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 [Ecotrin] 81 mg PO QHS 01/12/14 Pravastatin [Pravachol] 80 mg PO QHS 01/12/14 furosemide 40 mg tablet 40 mg PO BREAKFAST 10/01/17 losartan 100 mg tablet 100 mg PO QDAY 10/01/17 losartan 100 mg tablet 100 mg PO QDAY 10/01/17 magnesium oxide 400 mg tablet 400 mg PO BREAKFAST tab 10/01/17 warfarin 4 mg tablet 4 mg PO QHS 10/06/17 amoxicillin 500 mg capsule 500 mg PO .COMPLEX PRN #4 cap 10/20/17 amlodipine 10 mg tablet 10 mg PO QDAY #90 tab 11/09/17 potassium chloride ER 20 mEq 20 meq PO BREAKFAST #90 tab 12/10/17 tablet,extended release Smoking Status: Never smoker Tobacco Use: Non-smoker Review of Systems Constitutional: Denies: Anorexia, Chills, Fever, Malaise Eyes: Denies: Pain, Redness HEENT: Denies: Difficulty Swallowing Cardiovascular: Denies: Chest Pain, Chest Tightness Respiratory: Denies: Cough, Hemoptysis Gastrointestinal: Denies: Abdominal Pain, Hematemesis, Vomiting Skin: Denies: Dryness, Jaundice Psychiatric: Denies: Anxiety - Physical Exam Vital Signs Temp Pulse Resp BP 99.3 F H 84 16 148/76 H 12/24/17 12:48 12/24/17 12:48 12/24/17 12:48 12/24/17 12:48 General: Alert, Oriented x3, Cooperative, No apparent distress HEENT: Atraumatic, Normocephalic Oral: Moist Mucosa Neck: Supple Lungs: Normal air movement Cardiovascular: Regular rate Abdomen: Soft, Non Tender Extremities: No cyanosis Skin: Ulcer/ Wound Wound Measurements and Assessment WC - Nurse 1 - General Ulcer Measurement Start: 12/24/17 12:46 Freq: Status: Active Protocol: Activity Type Activity Date Activity User E-Sign Co-Sign Detail Recorded Client Recorded Date Recorded By Document 12/24/17 12:48 [facility] [id number] 12/24/17 12:56 [facility] 12/24/17 12:48 Wound Center Nurse 1 [Ulcer Assessment] #2 RIGHT MAKI -Combined with other wound No -Current Size (cm) - Length 0.1 -Current Size (cm) - Width 0.1 -Current Size (cm) - Depth 0.1 -Total Square Cm 0.01 -Date of Last Picture (Recall this 12/24/17 field) -Photo Taken Yes -Epithelialization None Present -Tunneling No -Undermining/Tunneling No -Circular Undermining No -Exudate Amt None Present (0 %) -Wound Margin Distinct, Outline Attached -Granulation Amt None Present (0 %) -Slough/Fibrin Yes -Necrosis Amt Large (67-100%) -Necrotic Tissue Type Eschar -Structure Exposed N/A -Texture (Nirali-wound Skin Appearance) Scarring -Moisture (Nirali-wound Skin Appearance Dry/Scaly ) -Color (Nirali-wound Skin Appearance) Assessed Hemosiderin Staining -Temperature (Nirali-wound Skin No Abnormality Appearance) (Pt Warm) -Tenderness on Palpation (Nirali-wound No Skin Appearance) -Ulcer Cleansing Rinsed/ Irrigated with Saline -Foul Odor after Cleansing No -Anesthetic Used 5% Lidocaine Gel [Edema Assessment] -Lower Limb Edema Present Yes -Right Calf (cm) 37 -Right Ankle (cm) 22 WC - Nurse 2 - General Ulcer CM Notes Start: 12/24/17 12:46 Freq: Status: Active Protocol: Activity Type Activity Date Activity User E-Sign Co-Sign Detail Recorded Client Recorded Date Recorded By Document 12/24/17 13:17 DV [id number] 12/24/17 13:20 DV 12/24/17 13:17 Wound Center Nurse 2 [Procedure/Treatment] #2 RIGHT MAKI -Time 13:18 -Correct Patient Yes -Correct Side, Site, Position Yes -Correct Procedure Yes -Procedure Performed Yes -Type of Procedure Debridement -Clinical Debridement Subcutaneous -Post Debridement Size (cm) - Length 2.2 -Post Debridement Size (cm) - Width 0.9 -Post Debridement Size (cm) - Depth 0.2 -Total Square Cm 1.98 -Wound/Ulcer Outcome Not Healed -Ulcer Cleansing Rinsed/ Irrigated with Saline -Foul Odor after Cleansing No -Bioengineered Tissue No -Bleeding Controlled with Pressure -Treatment Response Procedure Tolerated Well [See Physician Procedure note for Specifics] Pain Scale: 0-10 Numeric [Pain] -Is Patient Pain Free? Yes Musculoskeletal: No Muscle Wasting Neurological: Cranial nerves II-XII grossly intact Psych/Mental Status: Normal Affect Debridement Note Post-Debridement Measurements/Treatment WC - Nurse 2 - General Ulcer CM Notes Start: 12/24/17 12:46 Freq: Status: Active Protocol: Activity Type Activity Date Activity User E-Sign Co-Sign Detail Recorded Client Recorded Date Recorded By Document 12/24/17 13:17 DV [id number] 12/24/17 13:20 DV 12/24/17 13:17 Wound Center Nurse 2 #2 RIGHT MAKI -Time 13:18 -Correct Patient Yes -Correct Side, Site, Position Yes -Correct Procedure Yes -Procedure Performed Yes -Type of Procedure Debridement -Clinical Debridement Subcutaneous -Post Debridement Size (cm) - Length 2.2 -Post Debridement Size (cm) - Width 0.9 -Post Debridement Size (cm) - Depth 0.2 -Total Square Cm 1.98 -Wound/Ulcer Outcome Not Healed -Ulcer Cleansing Rinsed/ Irrigated with Saline -Foul Odor after Cleansing No -Bioengineered Tissue No -Bleeding Controlled with Pressure -Treatment Response Procedure Tolerated Well Pain Scale: 0-10 Numeric Is Patient Pain Free? 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 No increased tenderness per patient. Debridement done as documented above, procedure was well-tolerated. Cultures taken. Cecy daily moistened with Adaptic over top. Continue improved/increase protein intake/supplements. Continue Tubigrip for edema management. Elevate lower extremity when seated and in bed. Follow-up in 1 week. This note was generated with Portapureation software. It may contain incorrect words, spelling, and punctuation that were not noted in checking the note before signing.
--- NOTE | 2017-12-24 19:12 | HP.PCM_ITS ---
(1) Ulcer of right lower extremity with fat layer exposed Status: Acute Current Visit: Yes Code(s): L97.912 - Non-pressure chronic ulcer of unspecified part of right lower leg with fat layer exposed (2) Hematoma of lower limb Status: Acute Current Visit: No Code(s): S80.10XA - Contusion of unspecified lower leg, initial encounter (3) History of Coumadin therapy Status: Chronic Current Visit: No Code(s): Z92.29 - Personal history of other drug therapy History of Present Illness Date of Service: 12/24/17 Chief Complaint: Right Lower extremity wound. History of Wound: Mr. Ruth is an 82yo woman who has been seen here by Kia Maciel NP for healing left lower extremity wound. Sustained a wound several months ago after a tile fell on his leg. Initially developed hematoma which was excised here in the wound center he is subsequently had wound care. Wound is slowly progressed. He has been on antibiotics due to culture positive growth. He denies any complaints at this time. There is no significant pain at the site or discharge noted. 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 [Ecotrin] 81 mg PO QHS 01/12/14 Pravastatin [Pravachol] 80 mg PO QHS 01/12/14 furosemide 40 mg tablet 40 mg PO BREAKFAST 10/01/17 losartan 100 mg tablet 100 mg PO QDAY 10/01/17 losartan 100 mg tablet 100 mg PO QDAY 10/01/17 magnesium oxide 400 mg tablet 400 mg PO BREAKFAST tab 10/01/17 warfarin 4 mg tablet 4 mg PO QHS 10/06/17 amoxicillin 500 mg capsule 500 mg PO .COMPLEX PRN #4 cap 10/20/17 amlodipine 10 mg tablet 10 mg PO QDAY #90 tab 11/09/17 potassium chloride ER 20 mEq 20 meq PO BREAKFAST #90 tab 12/10/17 tablet,extended release Smoking Status: Never smoker Tobacco Use: Non-smoker Review of Systems Constitutional: Denies: Anorexia, Chills, Fever, Malaise Eyes: Denies: Pain, Redness HEENT: Denies: Difficulty Swallowing Cardiovascular: Denies: Chest Pain, Chest Tightness Respiratory: Denies: Cough, Hemoptysis Gastrointestinal: Denies: Abdominal Pain, Hematemesis, Vomiting Skin: Denies: Dryness, Jaundice Psychiatric: Denies: Anxiety - Physical Exam Vital Signs Temp Pulse Resp BP 99.3 F H 84 16 148/76 H 12/24/17 12:48 12/24/17 12:48 12/24/17 12:48 12/24/17 12:48 General: Alert, Oriented x3, Cooperative, No apparent distress HEENT: Atraumatic, Normocephalic Oral: Moist Mucosa Neck: Supple Lungs: Normal air movement Cardiovascular: Regular rate Abdomen: Soft, Non Tender Extremities: No cyanosis Skin: Ulcer/ Wound Wound Measurements and Assessment WC - Nurse 1 - General Ulcer Measurement Start: 12/24/17 12:46 Freq: Status: Active Protocol: Activity Type Activity Date Activity User E-Sign Co-Sign Detail Recorded Client Recorded Date Recorded By Document 12/24/17 12:48 [facility] [id number] 12/24/17 12:56 [facility] 12/24/17 12:48 Wound Center Nurse 1 [Ulcer Assessment] #2 RIGHT MAKI -Combined with other wound No -Current Size (cm) - Length 0.1 -Current Size (cm) - Width 0.1 -Current Size (cm) - Depth 0.1 -Total Square Cm 0.01 -Date of Last Picture (Recall this 12/24/17 field) -Photo Taken Yes -Epithelialization None Present -Tunneling No -Undermining/Tunneling No -Circular Undermining No -Exudate Amt None Present (0 %) -Wound Margin Distinct, Outline Attached -Granulation Amt None Present (0 %) -Slough/Fibrin Yes -Necrosis Amt Large (67-100%) -Necrotic Tissue Type Eschar -Structure Exposed N/A -Texture (Nirali-wound Skin Appearance) Scarring -Moisture (Nirali-wound Skin Appearance Dry/Scaly ) -Color (Nirali-wound Skin Appearance) Assessed Hemosiderin Staining -Temperature (Nirali-wound Skin No Abnormality Appearance) (Pt Warm) -Tenderness on Palpation (Nirali-wound No Skin Appearance) -Ulcer Cleansing Rinsed/ Irrigated with Saline -Foul Odor after Cleansing No -Anesthetic Used 5% Lidocaine Gel [Edema Assessment] -Lower Limb Edema Present Yes -Right Calf (cm) 37 -Right Ankle (cm) 22 WC - Nurse 2 - General Ulcer CM Notes Start: 12/24/17 12:46 Freq: Status: Active Protocol: Activity Type Activity Date Activity User E-Sign Co-Sign Detail Recorded Client Recorded Date Recorded By Document 12/24/17 13:17 DV [id number] 12/24/17 13:20 DV 12/24/17 13:17 Wound Center Nurse 2 [Procedure/Treatment] #2 RIGHT MAKI -Time 13:18 -Correct Patient Yes -Correct Side, Site, Position Yes -Correct Procedure Yes -Procedure Performed Yes -Type of Procedure Debridement -Clinical Debridement Subcutaneous -Post Debridement Size (cm) - Length 2.2 -Post Debridement Size (cm) - Width 0.9 -Post Debridement Size (cm) - Depth 0.2 -Total Square Cm 1.98 -Wound/Ulcer Outcome Not Healed -Ulcer Cleansing Rinsed/ Irrigated with Saline -Foul Odor after Cleansing No -Bioengineered Tissue No -Bleeding Controlled with Pressure -Treatment Response Procedure Tolerated Well [See Physician Procedure note for Specifics] Pain Scale: 0-10 Numeric [Pain] -Is Patient Pain Free? Yes Musculoskeletal: No Muscle Wasting Neurological: Cranial nerves II-XII grossly intact Psych/Mental Status: Normal Affect Debridement Note Post-Debridement Measurements/Treatment WC - Nurse 2 - General Ulcer CM Notes Start: 12/24/17 12:46 Freq: Status: Active Protocol: Activity Type Activity Date Activity User E-Sign Co-Sign Detail Recorded Client Recorded Date Recorded By Document 12/24/17 13:17 DV [id number] 12/24/17 13:20 DV 12/24/17 13:17 Wound Center Nurse 2 #2 RIGHT MAKI -Time 13:18 -Correct Patient Yes -Correct Side, Site, Position Yes -Correct Procedure Yes -Procedure Performed Yes -Type of Procedure Debridement -Clinical Debridement Subcutaneous -Post Debridement Size (cm) - Length 2.2 -Post Debridement Size (cm) - Width 0.9 -Post Debridement Size (cm) - Depth 0.2 -Total Square Cm 1.98 -Wound/Ulcer Outcome Not Healed -Ulcer Cleansing Rinsed/ Irrigated with Saline -Foul Odor after Cleansing No -Bioengineered Tissue No -Bleeding Controlled with Pressure -Treatment Response Procedure Tolerated Well Pain Scale: 0-10 Numeric Is Patient Pain Free? 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 No increased tenderness per patient. Debridement done as documented above, procedure was well-tolerated. Cultures taken. Cecy daily moistened with Adaptic over top. Continue improved/ increase protein intake/supplements. Continue Tubigrip for edema management. Elevate lower extremity when seated and in bed. Follow-up in 1 week. This note was generated with [employer] software. It may contain incorrect words, spelling, and punctuation that were not noted in checking the note before signing.
[2017-12-31 11:36] VITALS: BP 156/91; PULSE 99; RESP 18; TEMP 35.5
--- NOTE | 2017-12-31 16:50 | PCM.WC.PN ---
(1) Ulcer of right lower extremity with fat layer exposed Status: Acute Current Visit: Yes Code(s): L97.912 - Non-pressure chronic ulcer of unspecified part of right lower leg with fat layer exposed (2) Hematoma of lower limb Status: Acute Current Visit: No Code(s): S80.10XA - Contusion of unspecified lower leg, initial encounter (3) History of Coumadin therapy Status: Chronic Current Visit: No Code(s): Z92.29 - Personal history of other drug therapy Type of Wound Date of Service: 12/31/17 Chief Complaint: Right Lower extremity wound. History of Wound: Mr. Ruth is an 82yo woman who has been seen here by Kia Maciel NP for healing left lower extremity wound. Sustained a wound several months ago after a tile fell on his leg. Initially developed hematoma which was excised here in the wound center he is subsequently had wound care. Wound is slowly progressed. He has been on antibiotics due to culture positive growth. He denies any complaints at this time. There is no significant pain at the site or discharge noted. Progress of Wound: Stable. No new complaints. - Physical Exam Vital Signs Temp Pulse Resp BP 96 F L 99 18 156/91 H 12/31/17 11:36 12/31/17 11:36 12/31/17 11:36 12/31/17 11:36 General: Alert, Oriented x3, Cooperative, No apparent distress HEENT: Atraumatic, Normocephalic Oral: Moist Mucosa Neck: Supple Lungs: Normal air movement Cardiovascular: Regular rate Abdomen: Non Tender Extremities: No cyanosis Skin: Ulcer/ Wound Wound Measurements and Assessment - Nurse 1 - General Ulcer Measurement Start: 12/24/17 12:46 Freq: Status: Active Protocol: Activity Type Activity Date Activity User E-Sign Co-Sign Detail Recorded Client Recorded Date Recorded By Document 12/31/17 11:36 [facility] [id number] 12/31/17 11:42 [facility] 12/31/17 11:36 Wound Center Nurse 1 [Ulcer Assessment] #2 RIGHT MAKI -Combined with other wound No -Current Size (cm) - Length 2 -Current Size (cm) - Width 0.9 -Current Size (cm) - Depth 0.1 -Total Square Cm 1.8 -Photo Taken No -Epithelialization None Present -Tunneling No -Undermining/Tunneling No -Circular Undermining No -Exudate Amt Small (1-33%) -Exudate Type Serosanguineous -Wound Margin Distinct, Outline Attached -Granulation Amt None Present (0 %) -Slough/Fibrin Yes -Necrosis Amt Large (67-100%) -Necrotic Tissue Type Adherent Slough -Structure Exposed N/A -Texture (Nirali-wound Skin Appearance) Scarring -Moisture (Nirali-wound Skin Appearance Dry/Scaly ) -Color (Nirali-wound Skin Appearance) Hemosiderin Staining -Temperature (Nirali-wound Skin No Abnormality Appearance) (Pt Warm) -Tenderness on Palpation (Nirali-wound No Skin Appearance) -Ulcer Cleansing Rinsed/ Irrigated with Saline -Foul Odor after Cleansing No -Anesthetic Used 5% Lidocaine Gel [Edema Assessment] -Lower Limb Edema Present No -Right Calf (cm) 35.5 -Right Ankle (cm) 21.4 WC - Nurse 2 - General Ulcer CM Notes Start: 12/24/17 12:46 Freq: Status: Active Protocol: Activity Type Activity Date Activity User E-Sign Co-Sign Detail Recorded Client Recorded Date Recorded By Document 12/31/17 12:40 DV [id number] 12/31/17 12:43 DV 12/31/17 12:40 Wound Center Nurse 2 [Procedure/Treatment] #2 RIGHT MAKI -Time 12:41 -Correct Patient Yes -Correct Side, Site, Position Yes -Correct Procedure Yes -Procedure Performed Yes -Type of Procedure Debridement -Clinical Debridement Subcutaneous -Post Debridement Size (cm) - Length 1.6 -Post Debridement Size (cm) - Width 0.8 -Post Debridement Size (cm) - Depth 0.1 -Total Square Cm 1.28 -Wound/Ulcer Outcome Not Healed -Ulcer Cleansing Rinsed/ Irrigated with Saline -Foul Odor after Cleansing No -Bioengineered Tissue No -Bleeding Controlled with Pressure -Treatment Response Procedure Tolerated Well [See Physician Procedure note for Specifics] Pain Scale: 0-10 Numeric [Pain] -Is Patient Pain Free? Yes Musculoskeletal: No Muscle Wasting Neurological: Cranial nerves II-XII grossly intact Psych/Mental Status: Normal Affect Debridement Note Post-Debridement Measurements/Treatment WC - Nurse 2 - General Ulcer CM Notes Start: 12/24/17 12:46 Freq: Status: Active Protocol: Activity Type Activity Date Activity User E-Sign Co-Sign Detail Recorded Client Recorded Date Recorded By Document 12/24/17 13:17 DV [id number] 12/24/17 13:20 DV Document 12/31/17 12:40 DV [id number] 12/31/17 12:43 DV 12/24/17 12/31/17 13:17 12:40 Wound Center Nurse 2 #2 RIGHT MAKI -Time 13:18 12:41 -Correct Patient Yes Yes -Correct Side, Site, Position Yes Yes -Correct Procedure Yes Yes -Procedure Performed Yes Yes -Type of Procedure Debridement Debridement -Clinical Debridement Subcutaneous Subcutaneous -Post Debridement Size (cm) - Length 2.2 1.6 -Post Debridement Size (cm) - Width 0.9 0.8 -Post Debridement Size (cm) - Depth 0.2 0.1 -Total Square Cm 1.98 1.28 -Wound/Ulcer Outcome Not Healed Not Healed -Ulcer Cleansing Rinsed/ Rinsed/ Irrigated with Irrigated with Saline Saline -Foul Odor after Cleansing No No -Bioengineered Tissue No No -Bleeding Controlled with Pressure Pressure -Treatment Response Procedure Procedure Tolerated Well Tolerated Well Pain Scale: 0-10 Numeric Is Patient Pain Free? 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 No significant discharge noted today. Debridement done as documented above, procedure was well-tolerated. Will start on Augmentin even though its was only a minimal growth due to chronicity of wound. Continue Cecy moistened with adaptc over top. Continue improved/increase protein intake/supplements. Continue Tubigrip for edema management. Elevate lower extremity when seated and in bed. Follow-up in 1 week. This note was generated with [employer]ation software. It may contain incorrect words, spelling, and punctuation that were not noted in checking the note before signing.
--- NOTE | 2017-12-31 16:54 | PN.PCM_ITS ---
(1) Ulcer of right lower extremity with fat layer exposed Status: Acute Current Visit: Yes Code(s): L97.912 - Non-pressure chronic ulcer of unspecified part of right lower leg with fat layer exposed (2) Hematoma of lower limb Status: Acute Current Visit: No Code(s): S80.10XA - Contusion of unspecified lower leg, initial encounter (3) History of Coumadin therapy Status: Chronic Current Visit: No Code(s): Z92.29 - Personal history of other drug therapy Type of Wound Date of Service: 12/31/17 Chief Complaint: Right Lower extremity wound. History of Wound: Mr. Ruth is an 82yo woman who has been seen here by Kia Maciel NP for healing left lower extremity wound. Sustained a wound several months ago after a tile fell on his leg. Initially developed hematoma which was excised here in the wound center he is subsequently had wound care. Wound is slowly progressed. He has been on antibiotics due to culture positive growth. He denies any complaints at this time. There is no significant pain at the site or discharge noted. Progress of Wound: Stable. No new complaints. - Physical Exam Vital Signs Temp Pulse Resp BP 96 F L 99 18 156/91 H 12/31/17 11:36 12/31/17 11:36 12/31/17 11:36 12/31/17 11:36 General: Alert, Oriented x3, Cooperative, No apparent distress HEENT: Atraumatic, Normocephalic Oral: Moist Mucosa Neck: Supple Lungs: Normal air movement Cardiovascular: Regular rate Abdomen: Non Tender Extremities: No cyanosis Skin: Ulcer/ Wound Wound Measurements and Assessment - Nurse 1 - General Ulcer Measurement Start: 12/24/17 12:46 Freq: Status: Active Protocol: Activity Type Activity Date Activity User E-Sign Co-Sign Detail Recorded Client Recorded Date Recorded By Document 12/31/17 11:36 [facility] [id number] 12/31/17 11:42 [facility] 12/31/17 11:36 Wound Center Nurse 1 [Ulcer Assessment] #2 RIGHT MAKI -Combined with other wound No -Current Size (cm) - Length 2 -Current Size (cm) - Width 0.9 -Current Size (cm) - Depth 0.1 -Total Square Cm 1.8 -Photo Taken No -Epithelialization None Present -Tunneling No -Undermining/Tunneling No -Circular Undermining No -Exudate Amt Small (1-33%) -Exudate Type Serosanguineous -Wound Margin Distinct, Outline Attached -Granulation Amt None Present (0 %) -Slough/Fibrin Yes -Necrosis Amt Large (67-100%) -Necrotic Tissue Type Adherent Slough -Structure Exposed N/A -Texture (Nirali-wound Skin Appearance) Scarring -Moisture (Nirali-wound Skin Appearance Dry/Scaly ) -Color (Nirali-wound Skin Appearance) Hemosiderin Staining -Temperature (Nirali-wound Skin No Abnormality Appearance) (Pt Warm) -Tenderness on Palpation (Nirali-wound No Skin Appearance) -Ulcer Cleansing Rinsed/ Irrigated with Saline -Foul Odor after Cleansing No -Anesthetic Used 5% Lidocaine Gel [Edema Assessment] -Lower Limb Edema Present No -Right Calf (cm) 35.5 -Right Ankle (cm) 21.4 WC - Nurse 2 - General Ulcer CM Notes Start: 12/24/17 12:46 Freq: Status: Active Protocol: Activity Type Activity Date Activity User E-Sign Co-Sign Detail Recorded Client Recorded Date Recorded By Document 12/31/17 12:40 DV [id number] 12/31/17 12:43 DV 12/31/17 12:40 Wound Center Nurse 2 [Procedure/Treatment] #2 RIGHT MAKI -Time 12:41 -Correct Patient Yes -Correct Side, Site, Position Yes -Correct Procedure Yes -Procedure Performed Yes -Type of Procedure Debridement -Clinical Debridement Subcutaneous -Post Debridement Size (cm) - Length 1.6 -Post Debridement Size (cm) - Width 0.8 -Post Debridement Size (cm) - Depth 0.1 -Total Square Cm 1.28 -Wound/Ulcer Outcome Not Healed -Ulcer Cleansing Rinsed/ Irrigated with Saline -Foul Odor after Cleansing No -Bioengineered Tissue No -Bleeding Controlled with Pressure -Treatment Response Procedure Tolerated Well [See Physician Procedure note for Specifics] Pain Scale: 0-10 Numeric [Pain] -Is Patient Pain Free? Yes Musculoskeletal: No Muscle Wasting Neurological: Cranial nerves II-XII grossly intact Psych/Mental Status: Normal Affect Debridement Note Post-Debridement Measurements/Treatment WC - Nurse 2 - General Ulcer CM Notes Start: 12/24/17 12:46 Freq: Status: Active Protocol: Activity Type Activity Date Activity User E-Sign Co-Sign Detail Recorded Client Recorded Date Recorded By Document 12/24/17 13:17 DV [id number] 12/24/17 13:20 DV Document 12/31/17 12:40 DV [id number] 12/31/17 12:43 DV 12/24/17 12/31/17 13:17 12:40 Wound Center Nurse 2 #2 RIGHT MAKI -Time 13:18 12:41 -Correct Patient Yes Yes -Correct Side, Site, Position Yes Yes -Correct Procedure Yes Yes -Procedure Performed Yes Yes -Type of Procedure Debridement Debridement -Clinical Debridement Subcutaneous Subcutaneous -Post Debridement Size (cm) - Length 2.2 1.6 -Post Debridement Size (cm) - Width 0.9 0.8 -Post Debridement Size (cm) - Depth 0.2 0.1 -Total Square Cm 1.98 1.28 -Wound/Ulcer Outcome Not Healed Not Healed -Ulcer Cleansing Rinsed/ Rinsed/ Irrigated with Irrigated with Saline Saline -Foul Odor after Cleansing No No -Bioengineered Tissue No No -Bleeding Controlled with Pressure Pressure -Treatment Response Procedure Procedure Tolerated Well Tolerated Well Pain Scale: 0-10 Numeric Is Patient Pain Free? 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 No significant discharge noted today. Debridement done as documented above, procedure was well- tolerated. Will start on Augmentin even though its was only a minimal growth due to chronicity of wound. Continue Cecy moistened with adaptc over top. Continue improved/increase protein intake/supplements. Continue Tubigrip for edema management. Elevate lower extremity when seated and in bed. Follow-up in 1 week. This note was generated with [employer] software. It may contain incorrect words, spelling, and punctuation that were not noted in checking the note before signing.
[2018-01-07 09:02] VITALS: BP 138/84; PULSE 84; RESP 18; TEMP 36.6
--- NOTE | 2018-01-07 09:32 | PCM.WC.PN ---
(1) Ulcer of right lower extremity with fat layer exposed Status: Acute Current Visit: Yes Code(s): L97.912 - Non-pressure chronic ulcer of unspecified part of right lower leg with fat layer exposed (2) Hematoma of lower limb Status: Acute Current Visit: No Code(s): S80.10XA - Contusion of unspecified lower leg, initial encounter (3) History of Coumadin therapy Status: Chronic Current Visit: No Code(s): Z92.29 - Personal history of other drug therapy Type of Wound Date of Service: 01/07/18 Chief Complaint: Right Lower extremity wound. History of Wound: Mr. Ruth is an 82yo woman who has been seen here by Kia Maciel NP for healing left lower extremity wound. Sustained a wound several months ago after a tile fell on his leg. Initially developed hematoma which was excised here in the wound center he is subsequently had wound care. Wound is slowly progressed. He has been on antibiotics due to culture positive growth. He denies any complaints at this time. There is no significant pain at the site or discharge noted. Progress of Wound: Improving. - Physical Exam Vital Signs Temp Pulse Resp BP 97.8 F 84 18 138/84 H 01/07/18 09:02 01/07/18 09:02 01/07/18 09:02 01/07/18 09:02 General: Alert, Oriented x3, Cooperative, No apparent distress HEENT: Atraumatic, Normocephalic Oral: Moist Mucosa Neck: Supple Lungs: Normal air movement Cardiovascular: Regular rate Skin: Ulcer/ Wound Wound Measurements and Assessment WC - Nurse 1 - General Ulcer Measurement Start: 12/24/17 12:46 Freq: Status: Active Protocol: Activity Type Activity Date Activity User E-Sign Co-Sign Detail Recorded Client Recorded Date Recorded By Document 01/07/18 09:02 DL [id number] 01/07/18 09:05 DL 01/07/18 09:02 Wound Center Nurse 1 [Ulcer Assessment] #2 RIGHT MAKI -Current Size (cm) - Length 1.3 -Current Size (cm) - Width 0.5 -Current Size (cm) - Depth 0.1 -Total Square Cm 0.65 -Photo Taken No -Exudate Amt Small (1-33%) -Exudate Type Serosanguineous -Wound Margin Distinct, Outline Attached -Granulation Amt Large (67-100%) -Granulation Quality Red -Necrosis Amt Small (1-33%) -Necrotic Tissue Type Adherent Slough -Structure Exposed N/A -Texture (Nirali-wound Skin Appearance) Scarring -Moisture (Nirali-wound Skin Appearance Maceration ) -Color (Nirali-wound Skin Appearance) Hemosiderin Staining -Temperature (Nirali-wound Skin No Abnormality Appearance) (Pt Warm) -Tenderness on Palpation (Nirali-wound No Skin Appearance) -Ulcer Cleansing Rinsed/ Irrigated with Saline -Foul Odor after Cleansing No -Anesthetic Used 4% Lidocaine Solution [Edema Assessment] -Right Calf (cm) 36.6 -Right Ankle (cm) 20.8 Musculoskeletal: No Muscle Wasting Neurological: Cranial nerves II-XII grossly intact Psych/Mental Status: Normal Affect Debridement Note Post-Debridement Measurements/Treatment WC - Nurse 2 - General Ulcer CM Notes Start: 12/24/17 12:46 Freq: Status: Active Protocol: Activity Type Activity Date Activity User E-Sign Co-Sign Detail Recorded Client Recorded Date Recorded By Document 12/24/17 13:17 DV [id number] 12/24/17 13:20 DV Document 12/31/17 12:40 DV [id number] 12/31/17 12:43 DV 12/24/17 12/31/17 13:17 12:40 Wound Center Nurse 2 #2 RIGHT MAKI -Time 13:18 12:41 -Correct Patient Yes Yes -Correct Side, Site, Position Yes Yes -Correct Procedure Yes Yes -Procedure Performed Yes Yes -Type of Procedure Debridement Debridement -Clinical Debridement Subcutaneous Subcutaneous -Post Debridement Size (cm) - Length 2.2 1.6 -Post Debridement Size (cm) - Width 0.9 0.8 -Post Debridement Size (cm) - Depth 0.2 0.1 -Total Square Cm 1.98 1.28 -Wound/Ulcer Outcome Not Healed Not Healed -Ulcer Cleansing Rinsed/ Rinsed/ Irrigated with Irrigated with Saline Saline -Foul Odor after Cleansing No No -Bioengineered Tissue No No -Bleeding Controlled with Pressure Pressure -Treatment Response Procedure Procedure Tolerated Well Tolerated Well Pain Scale: 0-10 Numeric Is Patient Pain Free? 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 Debridement done as documented above, procedure was well-tolerated. Complete Abx as prescribed. Continue Cecy moistened with adaptic over top. Continue improved/increased protein intake/supplements. Continue Tubigrip for edema management. Elevate lower extremity when seated and in bed. Follow-up in 1 week. This note was generated with [employer] dictation software. It may contain incorrect words, spelling, and punctuation that were not noted in checking the note before signing.
--- NOTE | 2018-01-07 09:35 | PN.PCM_ITS ---
(1) Ulcer of right lower extremity with fat layer exposed Status: Acute Current Visit: Yes Code(s): L97.912 - Non-pressure chronic ulcer of unspecified part of right lower leg with fat layer exposed (2) Hematoma of lower limb Status: Acute Current Visit: No Code(s): S80.10XA - Contusion of unspecified lower leg, initial encounter (3) History of Coumadin therapy Status: Chronic Current Visit: No Code(s): Z92.29 - Personal history of other drug therapy Type of Wound Date of Service: 01/07/18 Chief Complaint: Right Lower extremity wound. History of Wound: Mr. Ruth is an 82yo woman who has been seen here by Kia Maciel NP for healing left lower extremity wound. Sustained a wound several months ago after a tile fell on his leg. Initially developed hematoma which was excised here in the wound center he is subsequently had wound care. Wound is slowly progressed. He has been on antibiotics due to culture positive growth. He denies any complaints at this time. There is no significant pain at the site or discharge noted. Progress of Wound: Improving. - Physical Exam Vital Signs Temp Pulse Resp BP 97.8 F 84 18 138/84 H 01/07/18 09:02 01/07/18 09:02 01/07/18 09:02 01/07/18 09:02 General: Alert, Oriented x3, Cooperative, No apparent distress HEENT: Atraumatic, Normocephalic Oral: Moist Mucosa Neck: Supple Lungs: Normal air movement Cardiovascular: Regular rate Skin: Ulcer/ Wound Wound Measurements and Assessment WC - Nurse 1 - General Ulcer Measurement Start: 12/24/17 12:46 Freq: Status: Active Protocol: Activity Type Activity Date Activity User E-Sign Co-Sign Detail Recorded Client Recorded Date Recorded By Document 01/07/18 09:02 DL [id number] 01/07/18 09:05 DL 01/07/18 09:02 Wound Center Nurse 1 [Ulcer Assessment] #2 RIGHT MAKI -Current Size (cm) - Length 1.3 -Current Size (cm) - Width 0.5 -Current Size (cm) - Depth 0.1 -Total Square Cm 0.65 -Photo Taken No -Exudate Amt Small (1-33%) -Exudate Type Serosanguineous -Wound Margin Distinct, Outline Attached -Granulation Amt Large (67-100%) -Granulation Quality Red -Necrosis Amt Small (1-33%) -Necrotic Tissue Type Adherent Slough -Structure Exposed N/A -Texture (Nirali-wound Skin Appearance) Scarring -Moisture (Nirali-wound Skin Appearance Maceration ) -Color (Nirali-wound Skin Appearance) Hemosiderin Staining -Temperature (Nirali-wound Skin No Abnormality Appearance) (Pt Warm) -Tenderness on Palpation (Nirali-wound No Skin Appearance) -Ulcer Cleansing Rinsed/ Irrigated with Saline -Foul Odor after Cleansing No -Anesthetic Used 4% Lidocaine Solution [Edema Assessment] -Right Calf (cm) 36.6 -Right Ankle (cm) 20.8 Musculoskeletal: No Muscle Wasting Neurological: Cranial nerves II-XII grossly intact Psych/Mental Status: Normal Affect Debridement Note Post-Debridement Measurements/Treatment WC - Nurse 2 - General Ulcer CM Notes Start: 12/24/17 12:46 Freq: Status: Active Protocol: Activity Type Activity Date Activity User E-Sign Co-Sign Detail Recorded Client Recorded Date Recorded By Document 12/24/17 13:17 DV [id number] 12/24/17 13:20 DV Document 12/31/17 12:40 DV [id number] 12/31/17 12:43 DV 12/24/17 12/31/17 13:17 12:40 Wound Center Nurse 2 #2 RIGHT MAKI -Time 13:18 12:41 -Correct Patient Yes Yes -Correct Side, Site, Position Yes Yes -Correct Procedure Yes Yes -Procedure Performed Yes Yes -Type of Procedure Debridement Debridement -Clinical Debridement Subcutaneous Subcutaneous -Post Debridement Size (cm) - Length 2.2 1.6 -Post Debridement Size (cm) - Width 0.9 0.8 -Post Debridement Size (cm) - Depth 0.2 0.1 -Total Square Cm 1.98 1.28 -Wound/Ulcer Outcome Not Healed Not Healed -Ulcer Cleansing Rinsed/ Rinsed/ Irrigated with Irrigated with Saline Saline -Foul Odor after Cleansing No No -Bioengineered Tissue No No -Bleeding Controlled with Pressure Pressure -Treatment Response Procedure Procedure Tolerated Well Tolerated Well Pain Scale: 0-10 Numeric Is Patient Pain Free? 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 Debridement done as documented above, procedure was well-tolerated. Complete Abx as prescribed. Continue Cecy moistened with adaptic over top. Continue improved/increased protein intake/supplements. Continue Tubigrip for edema management. Elevate lower extremity when seated and in bed. Follow-up in 1 week. This note was generated with [employer] dictation software. It may contain incorrect words, spelling, and punctuation that were not noted in checking the note before signing.
[2018-01-14 09:04] VITALS: BP 148/74; PULSE 75; RESP 18; TEMP 36
--- NOTE | 2018-01-14 09:41 | PCM.WC.PN ---
(1) Ulcer of right lower extremity with fat layer exposed Status: Acute Current Visit: Yes Code(s): L97.912 - Non-pressure chronic ulcer of unspecified part of right lower leg with fat layer exposed (2) Hematoma of lower limb Status: Acute Current Visit: No Code(s): S80.10XA - Contusion of unspecified lower leg, initial encounter (3) History of Coumadin therapy Status: Chronic Current Visit: No Code(s): Z92.29 - Personal history of other drug therapy Type of Wound Date of Service: 01/14/18 Chief Complaint: Right Lower extremity wound. History of Wound: Mr. Ruth is an 82yo woman who has been seen here by Kia Maciel NP for healing left lower extremity wound. Sustained a wound several months ago after a tile fell on his leg. Initially developed hematoma which was excised here in the wound center he is subsequently had wound care. Wound is slowly progressed. He has been on antibiotics due to culture positive growth. He denies any complaints at this time. There is no significant pain at the site or discharge noted. Progress of Wound: Improving. - Physical Exam Vital Signs Temp Pulse Resp BP 96.8 F L 75 18 148/74 H 01/14/18 09:04 01/14/18 09:04 01/14/18 09:04 01/14/18 09:04 General: Alert, Oriented x3, Cooperative, No apparent distress HEENT: Atraumatic, Normocephalic Oral: Moist Mucosa Neck: Supple Lungs: Normal air movement Abdomen: Non Tender Extremities: No cyanosis Skin: Ulcer/ Wound Wound Measurements and Assessment WC - Nurse 1 - General Ulcer Measurement Start: 12/24/17 12:46 Freq: Status: Active Protocol: Activity Type Activity Date Activity User E-Sign Co-Sign Detail Recorded Client Recorded Date Recorded By Document 01/14/18 09:04 RB [id number] 01/14/18 09:15 RB 01/14/18 09:04 Wound Center Nurse 1 [Ulcer Assessment] #2 RIGHT MAKI -Combined with other wound No -Current Size (cm) - Length 0.9 -Current Size (cm) - Width 0.3 -Current Size (cm) - Depth 0.1 -Total Square Cm 0.27 -Photo Taken No -Tunneling No -Undermining/Tunneling No -Circular Undermining No -Classification - Thickness Full Thickness without Exposed Support Structure -Exudate Amt Small (1-33%) -Exudate Type Serosanguineous -Wound Margin Distinct, Outline Attached -Granulation Amt Medium (34-66%) -Granulation Quality [place] -Slough/Fibrin Yes -Necrosis Amt Medium (34-66%) -Necrotic Tissue Type Adherent Slough -Structure Exposed N/A -Texture (Nirali-wound Skin Appearance) Assessed -Moisture (Nirali-wound Skin Appearance Assessed ) -Color (Nirali-wound Skin Appearance) Assessed Hemosiderin Staining -Temperature (Nirali-wound Skin No Abnormality Appearance) (Pt Warm) -Tenderness on Palpation (Nirali-wound No Skin Appearance) -Ulcer Cleansing Rinsed/ Irrigated with Saline -Foul Odor after Cleansing No -Anesthetic Used 4% Lidocaine Solution [Edema Assessment] -Lower Limb Edema Present Yes -Left Calf (cm) 36 -Left Ankle (cm) 21 Musculoskeletal: No Muscle Wasting Psych/Mental Status: Normal Affect Debridement Note Post-Debridement Measurements/Treatment WC - Nurse 2 - General Ulcer CM Notes Start: 12/24/17 12:46 Freq: Status: Active Protocol: Activity Type Activity Date Activity User E-Sign Co-Sign Detail Recorded Client Recorded Date Recorded By Document 12/24/17 13:17 DV [id number] 12/24/17 13:20 DV Document 12/31/17 12:40 DV [id number] 12/31/17 12:43 DV Document 01/07/18 09:32 DV [id number] 01/07/18 09:35 DV 12/24/17 12/31/17 01/07/18 13:17 12:40 09:32 Wound Center Nurse 2 #2 RIGHT MAKI -Time 13:18 12:41 09:33 -Correct Patient Yes Yes Yes -Correct Side, Site, Position Yes Yes Yes -Correct Procedure Yes Yes Yes -Procedure Performed Yes Yes Yes -Type of Procedure Debridement Debridement Debridement -Clinical Debridement Subcutaneous Subcutaneous Subcutaneous -Post Debridement Size (cm) - Length 2.2 1.6 0.9 -Post Debridement Size (cm) - Width 0.9 0.8 0.5 -Post Debridement Size (cm) - Depth 0.2 0.1 0.1 -Total Square Cm 1.98 1.28 0.45 -Wound/Ulcer Outcome Not Healed Not Healed Not Healed -Ulcer Cleansing Rinsed/ Rinsed/ Rinsed/ Irrigated with Irrigated with Irrigated with Saline Saline Saline -Foul Odor after Cleansing No No No -Bioengineered Tissue No No No -Bleeding Controlled with Pressure Pressure NA -Treatment Response Procedure Procedure Procedure Tolerated Well Tolerated Well Tolerated Well Pain Scale: 0-10 Numeric Is Patient Pain Free? 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 Hopefully heals within a week as patient states he will be out of town for 4 weeks in a week. Debridement done as documented above, procedure was well-tolerated. Has completed ABX. Continue Cecy moistened with adaptic over top. Continue improved/increased protein intake/supplements. Continue Tubigrip for edema management. Elevate lower extremity when seated and in bed. Follow-up in 1 week. This note was generated with [employer] dictation software. It may contain incorrect words, spelling, and punctuation that were not noted in checking the note before signing.
--- NOTE | 2018-01-14 09:45 | PN.PCM_ITS ---
(1) Ulcer of right lower extremity with fat layer exposed Status: Acute Current Visit: Yes Code(s): L97.912 - Non-pressure chronic ulcer of unspecified part of right lower leg with fat layer exposed (2) Hematoma of lower limb Status: Acute Current Visit: No Code(s): S80.10XA - Contusion of unspecified lower leg, initial encounter (3) History of Coumadin therapy Status: Chronic Current Visit: No Code(s): Z92.29 - Personal history of other drug therapy Type of Wound Date of Service: 01/14/18 Chief Complaint: Right Lower extremity wound. History of Wound: Mr. Ruth is an 82yo woman who has been seen here by Kia Maciel NP for healing left lower extremity wound. Sustained a wound several months ago after a tile fell on his leg. Initially developed hematoma which was excised here in the wound center he is subsequently had wound care. Wound is slowly progressed. He has been on antibiotics due to culture positive growth. He denies any complaints at this time. There is no significant pain at the site or discharge noted. Progress of Wound: Improving. - Physical Exam Vital Signs Temp Pulse Resp BP 96.8 F L 75 18 148/74 H 01/14/18 09:04 01/14/18 09:04 01/14/18 09:04 01/14/18 09:04 General: Alert, Oriented x3, Cooperative, No apparent distress HEENT: Atraumatic, Normocephalic Oral: Moist Mucosa Neck: Supple Lungs: Normal air movement Abdomen: Non Tender Extremities: No cyanosis Skin: Ulcer/ Wound Wound Measurements and Assessment WC - Nurse 1 - General Ulcer Measurement Start: 12/24/17 12:46 Freq: Status: Active Protocol: Activity Type Activity Date Activity User E-Sign Co-Sign Detail Recorded Client Recorded Date Recorded By Document 01/14/18 09:04 RB [id number] 01/14/18 09:15 RB 01/14/18 09:04 Wound Center Nurse 1 [Ulcer Assessment] #2 RIGHT MAKI -Combined with other wound No -Current Size (cm) - Length 0.9 -Current Size (cm) - Width 0.3 -Current Size (cm) - Depth 0.1 -Total Square Cm 0.27 -Photo Taken No -Tunneling No -Undermining/Tunneling No -Circular Undermining No -Classification - Thickness Full Thickness without Exposed Support Structure -Exudate Amt Small (1-33%) -Exudate Type Serosanguineous -Wound Margin Distinct, Outline Attached -Granulation Amt Medium (34-66%) -Granulation Quality Rowe -Slough/Fibrin Yes -Necrosis Amt Medium (34-66%) -Necrotic Tissue Type Adherent Slough -Structure Exposed N/A -Texture (Nirali-wound Skin Appearance) Assessed -Moisture (Nirali-wound Skin Appearance Assessed ) -Color (Nirali-wound Skin Appearance) Assessed Hemosiderin Staining -Temperature (Nirali-wound Skin No Abnormality Appearance) (Pt Warm) -Tenderness on Palpation (Nirali-wound No Skin Appearance) -Ulcer Cleansing Rinsed/ Irrigated with Saline -Foul Odor after Cleansing No -Anesthetic Used 4% Lidocaine Solution [Edema Assessment] -Lower Limb Edema Present Yes -Left Calf (cm) 36 -Left Ankle (cm) 21 Musculoskeletal: No Muscle Wasting Psych/Mental Status: Normal Affect Debridement Note Post-Debridement Measurements/Treatment WC - Nurse 2 - General Ulcer CM Notes Start: 12/24/17 12:46 Freq: Status: Active Protocol: Activity Type Activity Date Activity User E-Sign Co-Sign Detail Recorded Client Recorded Date Recorded By Document 12/24/17 13:17 DV [id number] 12/24/17 13:20 DV Document 12/31/17 12:40 DV [id number] 12/31/17 12:43 DV Document 01/07/18 09:32 DV [id number] 01/07/18 09:35 DV 12/24/17 12/31/17 01/07/18 13:17 12:40 09:32 Wound Center Nurse 2 #2 RIGHT MAKI -Time 13:18 12:41 09:33 -Correct Patient Yes Yes Yes -Correct Side, Site, Position Yes Yes Yes -Correct Procedure Yes Yes Yes -Procedure Performed Yes Yes Yes -Type of Procedure Debridement Debridement Debridement -Clinical Debridement Subcutaneous Subcutaneous Subcutaneous -Post Debridement Size (cm) - Length 2.2 1.6 0.9 -Post Debridement Size (cm) - Width 0.9 0.8 0.5 -Post Debridement Size (cm) - Depth 0.2 0.1 0.1 -Total Square Cm 1.98 1.28 0.45 -Wound/Ulcer Outcome Not Healed Not Healed Not Healed -Ulcer Cleansing Rinsed/ Rinsed/ Rinsed/ Irrigated with Irrigated with Irrigated with Saline Saline Saline -Foul Odor after Cleansing No No No -Bioengineered Tissue No No No -Bleeding Controlled with Pressure Pressure NA -Treatment Response Procedure Procedure Procedure Tolerated Well Tolerated Well Tolerated Well Pain Scale: 0-10 Numeric Is Patient Pain Free? 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 Hopefully heals within a week as patient states he will be out of town for 4 weeks in a week. Debridement done as documented above, procedure was well-tolerated. Has completed ABX. Continue Cecy moistened with adaptic over top. Continue improved/increased protein intake/supplements. Continue Tubigrip for edema management. Elevate lower extremity when seated and in bed. Follow-up in 1 week. This note was generated with Super dictation software. It may contain incorrect words, spelling, and punctuation that were not noted in checking the note before signing.
== END 2018-01-21 23:59 ==
LOC: WC 08:30
PROVIDERS: Family Provider Family Medicine; PCP Family Medicine; Visit Provider Internal Medicine
DX: L97.912 Non-pressure chronic ulcer of unspecified part of right lower leg with fat layer exposed (principal); S80.10XA Contusion of unspecified lower leg, initial encounter; Z92.29 Personal history of other drug therapy; E78.5 Hyperlipidemia, unspecified; I10 Essential (primary) hypertension; I25.10 Atherosclerotic heart disease of native coronary artery without angina pectoris; Z95.1 Presence of aortocoronary bypass graft; I48.2 Chronic atrial fibrillation; I50.32 Chronic diastolic (congestive) heart failure; I27.20 Pulmonary hypertension, unspecified; E87.6 Hypokalemia; Z95.2 Presence of prosthetic heart valve; Z79.82 Long term (current) use of aspirin
CPT/HCPCS: 11042; 87070; 87075; 87205

== ENCOUNTER 2018-02-09 08:17 | Outpatient (RCR) | payer MEDICARE, SELFPAY ==
[2018-01-29 10:19] LABS: Hematocrit 41.9 % (40-54); Hemoglobin 13.8 g/dl (13.0-16.5); Mean Corp Hgb Conc 32.9 g/gl (32-36); Mean Corpuscular Hgb 30.1 pg (27.0-32.0); Mean Corpuscular Volume 91.3 fL (80-94); Red Blood Count 4.59 M/mm3 (4.6-6.2); White Blood Count 8.2 K/mm3 (4.4-11.0)
[2018-01-29 10:20] LABS: Mean Platelet Vol. 9.6 fl (6.2-12.0); Platelet Count 282 K/mm3 (150-450); RBC Distribution Width SD 46.1 fl (35.1-43.9); Scan Indicated on CBC? Y/N NO
[2018-01-29 10:21] LABS: International Normalized Ratio 3.7
[2018-01-29 14:58] LABS: AST(SGOT) 35 U/L (15-37); Alanine Aminotransfer ALT/SGPT 29 U/L (16-61); Albumin, Serum 4.3 g/dL (3.2-5.0); Alkaline Phosphatase 86 U/L (45-117); Cholesterol 154 mg/dL (200); Globulin 3.4 g/dL (2.2-4.2); High Density Lipoprotein 40 mg/dL; Protein, Total 7.7 g/dL (6.4-8.2); Triglycerides 179 mg/dL; Very Low Density Lipoprotein 36 mg/dL (5-40)
[2018-01-29 14:59] LABS: ALB/GLOB Ratio 1.2 RATIO (0.9-2.4); AST(SGOT) 33 U/L (15-37); Alanine Aminotransfer ALT/SGPT 30 U/L (16-61); Albumin, Serum 4.2 g/dL (3.2-5.0); Alkaline Phosphatase 84 U/L (45-117); Anion Gap 9 (5-15); BUN 19 mg/dL (7-18); Chloride 104 mmol/L (98-107); Creatinine, Serum 1.19 mg/dL (0.70-1.30); EST Glomerular Filtration Rate 63 mL/min (>60); Est Glom Filt Rate - Afr Amer 76 mL/min (>60); Globulin 3.4 g/dL (2.2-4.2); Glucose 130 mg/dL (74-106); Potassium 3.7 mmol/L (3.5-5.1); Protein, Total 7.6 g/dL (6.4-8.2); Sodium Level 142 mmol/L (136-145); Thyroid Stim Hormone (TSH) 2.39 uIU/mL (0.358-3.74)
[2018-02-09 08:30] LABS: Prothrombin Time Fingerstick 37.4 SEC (11.9-14.4)
== END 2018-02-09 09:00 | disposition home or self-care (01) ==
LOC: LAB 08:17
PROVIDERS: Physician Assistant Medical; Family Provider Family Medicine; PCP Family Medicine; Visit Provider Internal Medicine Cardiovascular Disease
DX: I48.91 Unspecified atrial fibrillation (principal); E78.5 Hyperlipidemia, unspecified; Z79.01 Long term (current) use of anticoagulants; Z79.899 Other long term (current) drug therapy
CPT/HCPCS: 36415; 36416; 80053; 80061; 80076; 84443; 85027; 85610

== ENCOUNTER 2018-03-16 10:26 | Outpatient (RCR) | payer MEDICARE, SELFPAY ==
[2018-03-01 13:27] LABS: Prothrombin Time Fingerstick 43.2 SEC (11.9-14.4)
[2018-03-01 13:47] LABS: International Normalized Ratio 3.2; Prothrombin Time (Protime)PT. 33.1 SECONDS (11.7-14.9)
[2018-03-16 10:36] LABS: Prothrombin Time Fingerstick 43.5 SEC (11.9-14.4)
[2018-03-16 11:03] LABS: Prothrombin Time (Protime)PT. 35.9 SECONDS (11.7-14.9)
[2018-03-16 11:07] LABS: International Normalized Ratio 3.6
== END 2018-03-16 12:00 | disposition home or self-care (01) ==
LOC: LAB 10:26
PROVIDERS: Family Provider Family Medicine; PCP Family Medicine; Visit Provider Internal Medicine Cardiovascular Disease
DX: Z79.01 Long term (current) use of anticoagulants (principal)
CPT/HCPCS: 36415; 36416; 85610

== ENCOUNTER 2018-04-22 14:46 | Outpatient (RCR) | payer MEDICARE, SELFPAY ==
[2018-03-26 14:56] LABS: Prothrombin Time Fingerstick 37.2 SEC (11.9-14.4)
[2018-04-22 15:16] LABS: Prothrombin Time Fingerstick 39.5 SEC (11.9-14.4)
== END 2018-04-22 16:00 | disposition home or self-care (01) ==
LOC: LAB 14:46
PROVIDERS: Family Provider Family Medicine; PCP Family Medicine; Visit Provider Internal Medicine Cardiovascular Disease
DX: Z79.01 Long term (current) use of anticoagulants (principal)
CPT/HCPCS: 36416; 85610

== ENCOUNTER 2018-05-21 14:09 | Outpatient (RCR) | payer MEDICARE, SELFPAY ==
[2018-05-05 12:56] LABS: Prothrombin Time Fingerstick 31.8 SEC (11.9-14.4)
[2018-05-08 08:30] LABS: Prothrombin Time Fingerstick 31.6 SEC (11.9-14.4)
[2018-05-21 14:42] LABS: International Normalized Ratio 2.7; Prothrombin Time (Protime)PT. 28.8 SECONDS (11.7-14.9)
[2018-05-21 15:05] LABS: Anion Gap 6 (5-15); BUN 26 mg/dL (7-18); BUN/Creat Ratio 16.8 RATIO (10-20); Calcium,Total 8.6 mg/dL (8.5-10.1); Chloride 106 mmol/L (98-107); Creatinine, Serum 1.55 mg/dL (0.70-1.30); EST Glomerular Filtration Rate 46 mL/min (>60); Est Glom Filt Rate - Afr Amer 56 mL/min (>60); Glucose 114 mg/dL (74-106); Potassium 3.5 mmol/L (3.5-5.1); Sodium Level 141 mmol/L (136-145)
[2018-05-21 15:18] LABS: BNP,B-Type NATRIURETIC PEPTIDE 190.3 pg/mL (0-100)
== END 2018-05-21 15:00 | disposition home or self-care (01) ==
LOC: LAB 14:09
PROVIDERS: Family Provider Family Medicine; PCP Family Medicine; Visit Provider Internal Medicine Cardiovascular Disease
DX: I50.32 Chronic diastolic (congestive) heart failure (principal); Z79.01 Long term (current) use of anticoagulants
CPT/HCPCS: 36415; 36416; 80048; 83880; 85610

== ENCOUNTER → 2018-05-27 13:25 | Outpatient (CLI) | payer MEDICARE, SELFPAY ==
--- NOTE | 2018-05-27 13:26 | ECHOD_ITS ---
Reason For Study: dyspnea/sob Procedure This was a 2D Doppler, Color Flow transthoracic echocardiogram. Exam performed in department. Left Ventricle Normal LV size. The estimated ejection fraction is 60 %. Unable to assess diastolic dysfunction due to arrhythmia. No regional wall motion abnormalities noted. Right Ventricle Normal RV size. Normal systolic function. Atria The left atrium is moderately enlarged. The right atrium is moderately enlarged. Mitral Valve Bileaflet diffuse mitral valve thickening. There is mild to moderate mitral annular calcification. Mild-Moderate (1-2+) eccentric mitral valve insufficiency. Tricuspid Valve Normal tricuspid valve. Mild to moderate (1-2+) tricuspid valve insufficiency. Pulmonary artery systolic pressure is 44 mmHg. Aortic Valve Peak aortic valve gradient 38 mmHg. Mean aortic valve gradient 17 mmHg. Stable appearing mechanical aortic valve apparatus. MMode/2D Measurements & Calculations LVIDd: 4.2 cm IVSd: 1.1 cm Ao root diam: 3.6 cm LVIDs: 2.9 cm LVPWd: 1.1 cm LA dimension: 5.5 cm RVDd: 3.9 cm FS: 31.0 % LAV(MOD-bp): 84.9 ml LA A4 area: 27.0 cm2 RA A4 area: 25.4 cm2 LAV(MOD-bp) Indexed: 43.1 ml/m2 LAV(MOD-sp2): 84.2 ml LAV(MOD-sp4): 85.2 ml Doppler Measurements & Calculations MV E max nishi: 182.8 cm/sec Ao V2 max: 311.1 cm/sec LV V1 max: 148.7 cm/sec Ao max P.7 mmHg LV V1 max P.8 mmHg Ao V2 mean: 193.3 cm/sec LV V1 mean P.5 mmHg Ao mean P.3 mmHg LV V1 mean: 101.1 cm/sec Ao V2 VTI: 61.1 cm LV V1 VTI: 33.1 cm MR max nishi: 531.9 cm/sec PA V2 max: 125.8 cm/sec TR max nishi: 307.8 cm/sec MR max P.2 mmHg TR max P.9 mmHg Interpretation Summary Normal LV size. The estimated ejection fraction is 60 %. Unable to assess diastolic dysfunction due to arrhythmia. The left atrium is moderately enlarged. The right atrium is moderately enlarged. Mild to moderate (1-2+) tricuspid valve insufficiency. Pulmonary artery systolic pressure is 44 mmHg. Mean aortic valve gradient 17 mmHg. Stable appearing mechanical aortic valve apparatus. Compared to prior study, there is no significant change. Ordering Physician: Albert Mojica Referring Physician: Michael Cortez Performed By: Catherine Alfaro, NARGISCS, RVT
== END ==
PROVIDERS: Family Provider Family Medicine; PCP Family Medicine; Referring Provider Internal Medicine Cardiovascular Disease; Visit Provider Internal Medicine Cardiovascular Disease
DX: R06.02 Shortness of breath (principal)
CPT/HCPCS: 93306

== ENCOUNTER 2018-06-14 13:54 | Outpatient (RCR) | payer MEDICARE, SELFPAY ==
[2018-06-14 14:20] LABS: Prothrombin Time Fingerstick 40.9 SEC (11.9-14.4)
== END 2018-06-14 16:00 | disposition home or self-care (01) ==
LOC: LAB 13:54
PROVIDERS: Family Provider Family Medicine; PCP Family Medicine; Referring Provider Internal Medicine Cardiovascular Disease; Visit Provider Internal Medicine Cardiovascular Disease
DX: I48.2 Chronic atrial fibrillation (principal); Z79.01 Long term (current) use of anticoagulants
CPT/HCPCS: 36416; 85610

== ENCOUNTER → 2018-07-21 16:46 | Outpatient (CLI) | payer MEDICARE, SELFPAY ==
[2018-05-21 13:07] VITALS: BMI 28.5
[2018-07-21 18:05] LABS: Anion Gap 9 (5-15); BUN 24 mg/dL (7-18); BUN/Creat Ratio 23.1 RATIO (10-20); Calcium,Total 9.4 mg/dL (8.5-10.1); Chloride 104 mmol/L (98-107); Creatinine, Serum 1.04 mg/dL (0.70-1.30); EST Glomerular Filtration Rate 73 mL/min (>60); Est Glom Filt Rate - Afr Amer 88 mL/min (>60); Glucose 74 mg/dL (74-106); Potassium 3.6 mmol/L (3.5-5.1); Sodium Level 143 mmol/L (136-145)
--- OUTSIDE RECORDS SUMMARY | 2018-09-16 02:52 | XMS RPT_ITS ---
:1935 Author Organization OHIP Support Name Relationship Address Phone R Unavailable Unavailable Unavailable TANK RUTH Unavailable [address] + [place] [address] R Unavailable Unavailable Unavailable TANK RUTH Unavailable [address] + [place] [address] R Unavailable Unavailable Unavailable TANK RUTH Unavailable [address] + [place] [address] R Unavailable Unavailable Unavailable TANK RUTH Unavailable [address] + [place] [address] R Unavailable Unavailable Unavailable TANK RUTH Unavailable [address] + [place] [address] R Unavailable Unavailable Unavailable TANK RUTH Unavailable [address] + [place] [address] R Unavailable Unavailable Unavailable TANK RUTH Unavailable [address] + [place] [address] R Unavailable Unavailable Unavailable TANK RUTH Unavailable [address] + [place] [address] R Unavailable Unavailable Unavailable RAND RUTHE Unavailable [address] + [place] [address] R Unavailable Unavailable Unavailable RAND RUTHE Unavailable [address] + [place] [address] R Unavailable Unavailable Unavailable RAND RUTHE Unavailable [address] + [place] [address] R Unavailable Unavailable Unavailable RAND RUTHE Unavailable [address] [phone] [place] [address] R Unavailable Unavailable Unavailable TANK RUTH Unavailable [address] [phone] [place] [address] R Unavailable Unavailable Unavailable TANK RUTH Unavailable [address] + [place] [address] R Unavailable Unavailable Unavailable RAND URTHE Unavailable [address] [phone] [place] [address] R Unavailable Unavailable Unavailable RAND RUTHE Unavailable [address] [phone] [place] [address] R Unavailable Unavailable Unavailable TANK RUTH Unavailable [address] [phone] [place] [address] R Unavailable Unavailable Unavailable TANK RUTH Unavailable [address] [phone] [place] [address] R Unavailable Unavailable Unavailable TANK RUTH Unavailable [address] [phone] [place] [address] R Unavailable Unavailable Unavailable TANK RUTH Unavailable [address] [phone] [place] [address] R Unavailable Unavailable Unavailable TANK RUTH Unavailable [address] [phone] [place] [address] R Unavailable Unavailable Unavailable TANK RUTH Unavailable [address] [phone] [place] [address] R Unavailable Unavailable Unavailable TANK RUTH Unavailable [address] [phone] [place] [address] R Unavailable Unavailable Unavailable TANK RUTH Unavailable [address] [phone] [place] [address] R Unavailable Unavailable Unavailable RAND RUTHE Unavailable [address] [phone] [place] [address] Care Team Providers Name Role Phone Albert Mojica Attending Unavailable Michael Cortez Primary Care Unavailable Albert Mojica Referring Unavailable Albert Mojica Attending Unavailable Michael Cortez Referring Unavailable Michael Cortez Primary Care Unavailable Reynold Shin Attending Unavailable [facility] Primary Care Unavailable Galina, Albert Attending Unavailable Galina, Chewelah Referring Unavailable [facility] Unavailable Galina, Chewelah Attending Unavailable Galina, Albert Referring Unavailable [facility] Primary Care Unavailable Kia Maciel RUSSIAN HISTORY PROFESSOR-C Attending Unavailable [facility] Primary Care Unavailable Maciel, Dora RUSSIAN HISTORY PROFESSOR-C Attending Unavailable [facility] Primary Care Unavailable Galina, Albert Attending Unavailable Galina, Albert Referring Unavailable [facility] Primary Care Unavailable Ranney, Christopher Attending Unavailable Ransanborn, Christopher Referring Unavailable [facility] Primary Care Unavailable [facility] Primary Care Unavailable Oleghe, Efewongbe Attending Unavailable Galina, Albert Attending Unavailable Galina, Albert Referring Unavailable [facility] Primary Care Unavailable Galina, Albert Attending Unavailable Galina, Albert Referring Unavailable [facility] Primary Care Unavailable Galina, Chewelah Attending Unavailable Galina, Albert Referring Unavailable [facility] Primary Care Unavailable Ranney, Christopher Consulting Unavailable Oleghe, Efewongbe Attending Unavailable [facility] Primary Care Unavailable Galina, Chewelah Attending Unavailable Galina, Albert Referring Unavailable [facility] Primary Care Unavailable Ranney, Christopher Consulting Unavailable Oleghe, Efewongbe Attending Unavailable Oleghe, Efewongbe Referring Unavailable Galina, Chewelah Attending Unavailable Galina, Albert Referring Unavailable [facility] Primary Care Unavailable Ranney, Christopher Consulting Unavailable Galina, Chewelah Attending Unavailable Ranney, Christopher Referring Unavailable Galina, Albert Attending Unavailable Galina, Albert Referring Unavailable Ransanborn, Winnett Primary Care Unavailable Ranney, Christopher Consulting Unavailable Galina, Chewelah Attending Unavailable Ranney, Christopher Referring Unavailable Galina, Albert Attending Unavailable Galina, Albert Referring Unavailable Ransanborn, Winnett Primary Care Unavailable Galina, Albert Attending Unavailable Galina, Albert Referring Unavailable Ransanborn, Winnett Primary Care Unavailable Galina, Albert Attending Unavailable Galina, Chewelah Referring Unavailable [facility] Primary Care Unavailable Galina, Chewelah Consulting Unavailable Galina, Chewelah Attending Unavailable Galina, Albert Referring Unavailable Michael Cortez Primary Care Unavailable Michael Cortez Attending Unavailable Michael Cortez Primary Care Unavailable PROBLEMS PROBLEMS DATE TYPE CONDITION / CODE ATTENDING STATUS SOURCE 06/24/2018 Unknown I48.2 - Chronic Galina, Chewelah Active [place] atrial fibrillation / Community I48.2(ICD-10) Hospital Repository 05/27/2018 Unknown R06.02 - Shortness of Galina, Albert Active [place] breath / Community R06.02(ICD-10) Hospital Repository 05/26/2018 Unknown Z79.01 - FPC Galina, Albert Active [place] (current) use of Community anticoagulants / Hospital Z79.01(ICD-10) Repository 05/26/2018 Unknown I50.32 - Chronic Galina, Chewelah Active [place] diastolic Community (congestive) heart Hospital failure / Repository I50.32(ICD-10) 05/21/2018 Unknown Z95.2 - Presence of Galina, Chewelah Active [place] prosthetic heart [facility] valve / Z95.2(ICD-10) Hospital Repository 05/21/2018 Unknown I10 - Essential Galina, Chewelah Active [place] (primary) Community hypertension / Hospital I10(ICD-10) Repository 05/21/2018 Unknown I25.119 - Galina, Albert Active [place] Atherosclerotic heart [facility] disease of [facility] coronary artery with Repository unspecified angina pectoris / I25.119(ICD-10) 05/21/2018 Unknown Z95.1 - Presence of Galina, Chewelah Active [place] aortocoronary bypass Community graft / Z95.1(ICD-10) Hospital Repository 02/19/2018 Unknown E78.5 - Galina, Albert Active [facility] Hyperlipidemia, Community unspecified / Hospital E78.5(ICD-10) Repository 03/03/2018 Unknown L97.912 - [place], Active [facility] 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 / L97.912(ICD-10) 12/22/2017 Unknown L03.119 - Cellulitis Galina, Albert Active [place] of unspecified part Community of limb / Hospital L03.119(ICD-10) Repository 12/22/2017 Unknown 682.6 - Cellulitis Galnia, Chewelah Active [place] and abscess of leg, Community except foot / Hospital 682.6(ICD-9) Repository 10/19/2017 Unknown L02.91 - Cutaneous Reynold Shin Active [place] abscess, unspecified Community / L02.91(ICD-10) Hospital Repository PROCEDURES PROCEDURES No Procedure Records FoundRESULTS RESULTS BASIC METABOLIC Collected: 07/30/2018 Status: F Source: [place] PROFILE (BMP) 2:28 PM [facility] REPOSITORY TYPE CODE TESTS RESULT OUT OF RANGE REFERENCE UNITS LAB L501.0100 74-106 mg/dL Normal GLU 104 Result Comment: Fasting Glucose result from 100 to 125 mg/dL suggests IMPAIRED HOMEOSTASIS per A.D.A. criteria. Please note revised GLUCOSE reference range effective 2017. LAB L501.1000 7-18 mg/dL High BUN 21 LAB L501.1100 0.70-1.30 mg/dL Normal CREAT,SERUM 1.03 Result Comment: The validity of the calculated GFR AND GFRAA in patients over 70 years has not been determined. Clinical correlation is essential. LAB L501.1110 >60 mL/min Normal EST GFR 74 Result Comment: Non- GFR Calc LAB L501.1115 >60 mL/min Normal EST GFR - AA 89 Result Comment: GFR Calc LAB L501.1300 10-20 RATIO High BUN/CRE 20.4 LAB L501.2200 8.5-10.1 mg/dL Low CA 8.4 LAB L501.5300 136-145 mmol/L NA Normal 142 LAB L501.5600 3.5-5.1 mmol/L Low K 3.4 LAB L501.5900 98-107 mmol/L CL Normal 104 LAB L501.6100 21.0-32.0 mmol/L Normal CO2 30.0 LAB L501.6200 5-15 Normal GAP 8 Performed By: #### L500.2500 #### [facility] [address] [place], [address] BNP,B-TYPE NATRIURETIC Collected: 07/30/2018 Status: F Source: [place] PEPTIDE 2:28 PM [facility] REPOSITORY TYPE CODE TESTS RESULT OUT OF RANGE REFERENCE UNITS LAB L503.6620 0-100 pg/mL High B-TYPE 130.0 MARGARITO PEP Performed By: #### L503.6620 #### [facility] [address] [place], [place], [id number] PROTHROMBIN TIME W/INR Collected: 07/30/2018 Status: F Source: [place] 2:24 PM [facility] REPOSITORY Order Comment: Comments: STANDING ORDER Comments: STANDING ORDER TYPE CODE TESTS RESULT OUT OF RANGE REFERENCE UNITS LAB L300.4150 11.7-14.9 SECONDS High PROTIME 30.5 LAB L300.4200 Normal INR 2.9 Performed By: #### L300.3900 #### [facility] [address] [facility] [id number] LIVER PROFILE Collected: 07/30/2018 Status: F Source: [place] 2:24 PM [facility] REPOSITORY TYPE CODE TESTS RESULT OUT OF RANGE REFERENCE UNITS LAB L501.1500 6.4-8.2 g/dL Normal T PROT 7.5 LAB L501.1800 3.2-5.0 g/dL Normal ALB 4.1 LAB L501.1950 2.2-4.2 g/dL Normal GLOB 3.4 LAB L501.4100 15-37 U/L Normal AST 32 LAB L501.4305 45-117 U/L Normal ALK P 92 LAB L501.4405 16-61 U/L Normal ALT 29 LAB L501.4600 0.20-1.00 mg/dL Normal T BILI 1.00 LAB L501.4700 0.00-0.30 mg/dL Normal D BILI 0.20 Performed By: #### L500.3400, L500.4100 #### [facility] [address], [place], [id number] LIPID PROFILE Collected: 07/30/2018 Status: F Source: [place] 2:24 PM [facility] REPOSITORY TYPE CODE TESTS RESULT OUT OF RANGE REFERENCE UNITS LAB L501.4900 200 mg/dL Normal CHOL 171 Result Comment: <200 mg/dL Desirable 200-240 mg/dL Borderline >240 mg/dL High Risk LAB L501.5000 mg/dL Normal TRIG 160 Result Comment: The drugs N-Acetylcysteine and Metamizole may falsely depress this assay. Serum Triglycerides Reference Interval Normal <150 mg/dL Borderline high 150 - 199 mg/dL High 200 - 499 mg/dL Very High > or = 500 mg/dL LAB L501.6400 mg/dL Normal HDL 49 Result Comment: The drugs N-Acetylcysteine and Metamizole may falsely depress this assay. Reference Range HDL <40 mg/dL Low HDL Cholesterol HDL >or= 60 mg/dL High HDL Cholesterol LAB L501.6500 0-130 mg/dL Normal LDL 90 LAB L501.6600 5-40 mg/dL Normal VLDL 32 Performed By: #### L500.3400, L500.4100 #### [facility] [address] [place], [address] BASIC METABOLIC Collected: 07/21/2018 Status: F Source: [place] PROFILE (BMP) 4:50 PM [facility] REPOSITORY TYPE CODE TESTS RESULT OUT OF RANGE REFERENCE UNITS LAB L501.0100 74-106 mg/dL Normal GLU 74 Result Comment: Please note revised GLUCOSE reference range effective 2017. LAB L501.1000 7-18 mg/dL High BUN 24 LAB L501.1100 0.70-1.30 mg/dL Normal CREAT,SERUM 1.04 Result Comment: The validity of the calculated GFR AND GFRAA in patients over 70 years has not been determined. Clinical correlation is essential. LAB L501.1110 >60 mL/min Normal EST GFR 73 Result Comment: Non- GFR Calc LAB L501.1115 >60 mL/min Normal EST GFR - AA 88 Result Comment: GFR Calc LAB L501.1300 10-20 RATIO High BUN/CRE 23.1 LAB L501.2200 8.5-10.1 mg/dL CA Normal 9.4 LAB L501.5300 136-145 mmol/L NA Normal 143 LAB L501.5600 3.5-5.1 mmol/L K Normal 3.6 LAB L501.5900 98-107 mmol/L CL Normal 104 LAB L501.6100 21.0-32.0 mmol/L Normal CO2 30.0 LAB L501.6200 5-15 Normal GAP 9 Performed By: #### L500.2500 #### [facility] [address] [place], [address] PROTIME W/INR Collected: 06/14/2018 Status: F Source: [place] FINGERSTICK 2:12 PM [facility] REPOSITORY TYPE CODE TESTS RESULT OUT OF REFERENCE UNITS RANGE LAB L9200.1001 11.9-14.4 SEC High PROTIME ISTAT 40.9 Result Comment: Reference Range 11.9 - 14.4 LAB L9200.2000 High alert INR ISTAT 3.60 Result Comment: Critical Value > 3.5 Performed By: #### L9200.0000 #### [facility] Point of Care [address] [place] [address] ECHOCARDIOGRAM COMPLETE Observed: 05/27/2018 Status: F Source: [place] 4:14 PM [facility] REPOSITORY [facility] Cardiovascular Services [address] [place] [address] Echo Complete 05/27/18 1340 MR#: [id number] Acct: [id number] Name: GEORGE RUTH Rep #: [id number] : 1935 82 From: Albert Mojica MD Attending Dr: Albert Mojica MD Status: REG CLI Ordering Dr: Albert Mojica MD Date: 05/27/18 Location: [facility] Sex: M C Admitted: Reason For Study: dyspnea/sob Procedure This was a 2D Doppler, Color Flow transthoracic echocardiogram. Exam performed in department. Left Ventricle Normal LV size. The estimated ejection fraction is 60 %. Unable to assess diastolic dysfunction due to arrhythmia. No regional wall motion abnormalities noted. Right Ventricle Normal RV size. Normal systolic function. Atria The left atrium is moderately enlarged. The right atrium is moderately enlarged. Mitral Valve Bileaflet diffuse mitral valve thickening. There is mild to moderate mitral annular calcification. Mild-Moderate (1-2+) eccentric mitral valve insufficiency. Tricuspid Valve Normal tricuspid valve. Mild to moderate (1-2+) tricuspid valve insufficiency. Pulmonary artery systolic pressure is 44 mmHg. Aortic Valve Peak aortic valve gradient 38 mmHg. Mean aortic valve gradient 17 mmHg. Stable appearing mechanical aortic valve apparatus. MMode/2D Measurements AND Calculations LVIDd: 4.2 cm IVSd: 1.1 cm Ao root diam: 3.6 cm LVIDs: 2.9 cm LVPWd: 1.1 cm LA dimension: 5.5 cm RVDd: 3.9 cm FS: 31.0 % LAV(MOD-bp): 84.9 ml LA A4 area: 27.0 cm2 RA A4 area: 25.4 cm2 LAV(MOD-bp) Indexed: 43.1 ml/m2 LAV(MOD-sp2): 84.2 ml LAV(MOD-sp4): 85.2 ml Doppler Measurements AND Calculations MV E max nishi: 182.8 cm/sec Ao V2 max: 311.1 cm/sec LV V1 max: 148.7 cm/sec Ao max P.7 mmHg LV V1 max P.8 mmHg Ao V2 mean: 193.3 cm/sec LV V1 mean P.5 mmHg Ao mean P.3 mmHg LV V1 mean: 101.1 cm/sec Ao V2 VTI: 61.1 cm LV V1 VTI: 33.1 cm MR max nishi: 531.9 cm/sec PA V2 max: 125.8 cm/sec TR max nishi: 307.8 cm/sec MR max P.2 mmHg TR max P.9 mmHg Interpretation Summary Normal LV size. The estimated ejection fraction is 60 %. Unable to assess diastolic dysfunction due to arrhythmia. The left atrium is moderately enlarged. The right atrium is moderately enlarged. Mild to moderate (1-2+) tricuspid valve insufficiency. Pulmonary artery systolic pressure is 44 mmHg. Mean aortic valve gradient 17 mmHg. Stable appearing mechanical aortic valve apparatus. Compared to prior study, there is no significant change. Ordering Physician: Albert Mojica Referring Physician: Michael Cortez Performed By: Catherine Alfaro, SHAGUFTA, RVT 05/27/18 1614 Date Albert Mojica MD CC: Michael Cortez MD; Albert Mojica MD Date Dictated: 05/27/18 1340 Date Transcribed: 05/27/181613 Information Services Manager: Signed PROTHROMBIN TIME W/INR Collected: 05/21/2018 Status: F Source: [place] 2:14 PM [facility] REPOSITORY TYPE CODE TESTS RESULT OUT OF RANGE REFERENCE UNITS LAB L300.4150 11.7-14.9 SECONDS High PROTIME 28.8 LAB L300.4200 Normal INR 2.7 Performed By: #### L300.3900 #### [facility] [address] [place], [address] BASIC METABOLIC Collected: 05/21/2018 Status: F Source: [place] PROFILE (BMP) 2:14 PM [facility] REPOSITORY TYPE CODE TESTS RESULT OUT OF RANGE REFERENCE UNITS LAB L501.0100 74-106 mg/dL High GLU 114 Result Comment: Fasting Glucose result from 100 to 125 mg/dL suggests IMPAIRED HOMEOSTASIS per A.D.A. criteria. Please note revised GLUCOSE reference range effective 2017. LAB L501.1000 7-18 mg/dL High BUN 26 LAB L501.1100 0.70-1.30 mg/dL High CREAT,SERUM 1.55 Result Comment: The validity of the calculated GFR AND GFRAA in patients over 70 years has not been determined. Clinical correlation is essential. LAB L501.1110 >60 mL/min Low EST GFR 46 Result Comment: Non- GFR Calc LAB L501.1115 >60 mL/min Low EST GFR - AA 56 Result Comment: GFR Calc LAB L501.1300 10-20 RATIO Normal BUN/CRE 16.8 LAB L501.2200 8.5-10.1 mg/dL CA Normal 8.6 LAB L501.5300 136-145 mmol/L NA Normal 141 LAB L501.5600 3.5-5.1 mmol/L K Normal 3.5 LAB L501.5900 98-107 mmol/L CL Normal 106 LAB L501.6100 21.0-32.0 mmol/L Normal CO2 29.0 LAB L501.6200 5-15 Normal GAP 6 Performed By: #### L500.2500 #### [facility] [address] [place], [address] BNP,B-TYPE NATRIURETIC Collected: 05/21/2018 Status: F Source: [place] PEPTIDE 2:14 PM [facility] REPOSITORY TYPE CODE TESTS RESULT OUT OF RANGE REFERENCE UNITS LAB L503.6620 0-100 pg/mL High B-TYPE 190.3 MARGARITO PEP Performed By: #### L503.6620 #### [facility] [address] [place], [address] CARDIOLOGY VISIT Observed: 05/21/2018 Status: F Source: [place] REPORT 1:56 PM [facility] REPOSITORY [facility] 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 As you know we had attempted cardioversion for his atrial fibrillation as well as ablation in 10/13/2014 which was unsuccessful. He says that last week he did have an episode where he was noted to be short of breath and had minimal chest discomfort but it appeared to dissipate. He has been continue to exercise without any problems. He did have some discoloration of his lower extremities as well and was asked to wear SARA hose support stockings. He has had no neck, jaw discomfort suggest angina no dizziness or diaphoresis no near syncope or syncope. We did perform a stress test on him at the end of 2015 and at that time he exercised and 7.1 metabolic equivalents without any evidence of ischemia. He had excellent function aerobic capacity. His echocardiogram which was also performed at that time demonstrated an ejection fraction of 55% with severe biatrial enlargement mild mitral and tricuspid regurgitation. His physical exam today demonstrates occasional rales, irregular rate and rhythm crisp prosthetic sounds and trace pedal edema. No carotid bruits noted. Intake Vital Signs05/21/18 Height 5 ft 8 in Intake Visit Reasons: breathing change/swelling refused apt 05-19-18 Allergies No Known Allergies Allergy (Verified 05/21/18 13:07) Medications Aspirin E.C. [Ecotrin] 81 mg PO QHS 01/12/14 [History Confirmed 05/21/18] magnesium oxide 400 mg tablet 400 mg PO BREAKFAST tab 10/01/17 [History Confirmed 05/21/18] amoxicillin 500 mg capsule 500 mg PO .COMPLEX PRN #4 cap 10/20/17 [Rx Confirmed 05/21/18] amlodipine 10 mg tablet 10 mg PO QDAY #90 tab 11/09/17 [Rx Confirmed 05/21/18] potassium chloride ER 20 mEq tablet,extended release 20 meq PO BREAKFAST #90 tab 12/10/17 [Rx Confirmed 05/21/18] losartan 100 mg tablet 100 mg PO QDAY #90 tab 04/07/18 [Rx Confirmed 05/21/18] pravastatin 80 mg tablet 80 mg PO QHS #90 tab 04/07/18 [Rx Confirmed 05/21/18] warfarin 4 mg tablet 4 mg PO QHS #90 tab 04/07/18 [Rx Confirmed 05/21/18] vit A 7,160 unit-vit C 113 mg-vit E 100 mvam-yzyx-tefdfl tablet tab PO 04/16/18 [History Confirmed 05/21/18] furosemide 40 mg tablet 40 mg PO QAM #90 tab 05/13/18 [Rx Confirmed 05/21/18] [facility] Medical History Essential (primary) hypertension (Chronic) 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 arterial hypertension (Chronic) Non-rheumatic tricuspid valve insufficiency (Chronic) Nonrheumatic mitral (valve) insufficiency (Chronic) 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 (Chronic) Hyperlipidemia (Chronic) Atherosclerotic heart disease of [place] coronary artery without angina pectoris (Chronic) FPC use of drug (Chronic) Aortic valve stenosis, rheumatic (Chronic) Chronic atrial fibrillation (Chronic) Chronic diastolic heart failure (Chronic) Obstructive sleep apnea (Chronic) Shortness of breath (Chronic) Hypokalemia (Inactive) Localized edema (Inactive) Surgical History H/O coronary artery bypass surgery (Resolved 04/30/01) H/O aortic valve replacement (Chronic 04/30/01) History of radiofrequency ablation procedure for cardiac arrhythmia (Chronic) Family History Father , No hx of CAD No problems noted. Mother , age 79 Diabetes Social History Smoking Status: Never smoker ROS Const Const: Positive for other (c/o weak voice past 2 weeks); negative for fatigue, weakness, difficulty sleeping, frequent falls, excessive sweating or headache(s) Eyes Eyes: Negative for loss of peripheral vision, transient loss of vision, blurry vision, tunnel vision or double vision ENT ENT: Negative for headache(s), dizziness, Nosebleed/epistaxis or balance problems Cardio Chest Pain: Yes (Chest pain 1 week ago and has been SOB on and off since that episode) Palpitations: No Edema: None (Takes additional lasix 2-3 days a week for weight gain) Muscle aches with walking: None Resp Respiratory: Positive for SOB with activity; negative for SOB at rest, SOB orthopnea\SOB lying down, paroxysmal nocturnal dyspnea or Cough GI GI: Negative nausea, heartburn, black,tarry stools or vomiting : Negative for hematuria Musc Musc: Negative for balance problems, muscle aches/ myalgia, muscle weakness or joint pain Skin Skin: Positive for other; negative non-healing lesions (RLE, treated with antibiotic), unusual bruising or rash Neuro Neuro: Negative for weakness, frequent falls, headache(s), blurry vision, double vision, dizziness, lightheadedness, orthostatic symptoms, near syncope, syncope or lack of coordination Carlos Hematologic/Lymphatic: Negative for easy bruising or easy bleeding Endo Endo: Negative for fatigue, excessive sweating or increased thirst/drinking Psych Psych: Negative for anxiety or depression Allergy Allergy/Immunology: Negative for hives, Negative for rash Cardiology Exam Const Appearance: cooperative, healthy appearing, well developed, well groomed and no acute distress Nutritional Appearance: well nourished and average body habitus Orientation: alert, awake and oriented x3 Head Head: normal to inspection, normocephalic and atraumatic Ears: hearing grossly normal bilaterally and external ears normal Nose: external nose normal, nasal mucous membranes and turbinates normal, nares normal, septum normal, no nasal discharge Face and Sinus: face symmetric Mouth: oral mucosae normal, tongue normal, oropharynx normal and moist mucous membranes Teeth and gingiva: dentition normal Throat: posterior oropharynx normal, tonsils normal and uvula midline Eyes General: appearance normal, both eyes and all related structures Eyelids: eyelids normal Conjunctivae: conjunctivae normal Pupils: PERRL, normal by confrontation and accommodation normal EOM: EOM intact bilaterally Neck Neck: normal visual inspection, trachea midline and no JVD JVD: +5 Carotids: normal carotid upstroke and bounding pulses Chest Chest inspection: normal inspection of the chest, symmetric chest movement and normal respiratory effort Auscultation: Bilateral: Rales Cardio Palpation: normal PMI Rate: regular rate Rhythm: regular rhythm Heart sounds: S1 normal, S2 normal and normal, physiologic split S2; negative rub, gallop or murmur GI GI: normal to inspection, soft, no hepatosplenomegaly and bowel sounds present Neuro General: alert, awake, oriented x3, no focal sensory deficit, gait normal and moves all extremities Skin Skin: no rashes or lesions noted Extremities Pulses: Normal: Right Femoral Pulse, Left Femoral Pulse, Right Dorsalis Pedis Pulse, Left Dorsalis Pedis Pulse, Right Posterior Tibial Pulse, Left Posterior Tibial Pulse, Right Radial Pulse, Left Radial Pulse Lower Extremity Edema: None: Bilateral Musculoskel Musculoskeletal: No joint tenderness Psych Psychological: normal affect Assessment AND Plan 1. Essential (primary) hypertension I10 Plan His blood pressure appears to be under good control on the current medical therapy I would not recommend that we make any changes at this particular time. 2. 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 He do remember that we performed a stress test on him in 2015 and at that time no evidence of ischemia was noted. He remains quite active playing tennis as well as on the exercise bike and he has not had any angina. I would recommend we continue to monitor him closely. 3. 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 His last evaluation with an echocardiogram was in December 2015. I recommend that we repeat the above to assess for gradients across the aortic valve. 4. 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 5. Chronic atrial fibrillation I48.2 Plan He does have chronic persistent atrial fibrillation with a controlled ventricular response rate, he remains on anticoagulation maintaining an INR of 2-3. 6. Chronic diastolic heart failure I50.32 Plan He appears to have an exacerbation of the above. I recommend obtaining a natriuretic peptide level as well as a creatinine level today. I am asking him to increase his Lasix dose to 40 mg twice a day over the next 4 days he should call us in on Thursday to let us know how he is doing. Hopefully at that time would also have results of his echocardiogram. Natriuretic peptide is also being obtained. Daily weights have been emphasized and should keep a record of the above as well. Thank you for allowing me to participate in the care of your patient. 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80 Result Comment: Critical Value > 3.5 Performed By: #### L9200.0000 #### [facility] Point of Care [address] [place] [address] PROTIME W/INR Collected: 05/05/2018 Status: F Source: ELIUD FINGERSTICK 12:50 PM [facility] REPOSITORY TYPE CODE TESTS RESULT OUT OF REFERENCE UNITS RANGE LAB L9200.1001 11.9-14.4 SEC High PROTIME ISTAT 31.8 Result Comment: Reference Range 11.9 - 14.4 LAB L9200.2000 Normal INR ISTAT 2.80 Result Comment: Critical Value > 3.5 Performed By: #### L9200.0000 #### [facility] Point of Care [address] [place] [address] PROTIME W/INR Collected: 04/22/2018 Status: F Source: ELIUD FINGERSTICK 3:08 PM [facility] REPOSITORY TYPE CODE TESTS RESULT OUT OF REFERENCE UNITS RANGE LAB L9200.1001 11.9-14.4 SEC High PROTIME ISTAT 39.5 Result Comment: Reference Range 11.9 - 14.4 LAB L9200.2000 Normal INR ISTAT 3.50 Result Comment: Critical Value > 3.5 Performed By: #### [id number] #### [facility] Point of Care [address] [place] [address] CARDIOLOGY VISIT Observed: 04/16/2018 Status: F Source: ELIUD REPORT 4:18 PM [facility] REPOSITORY [facility] [address] [place] [address] OFFICE VISIT Date of Service: 04/16/18 MR#: [id number] Acct: [id number] Name: GEORGE RUTH Rep #: [id number] : 1935 Provider: Albert Mojica MD Age/Sex: 82/M [place] [facility] [place]: Signed HPI HPI Chief Complaint: follow up Details: GEORGE RUTH, is a 82 M who presents to the office today for a follow-up visit for his chronic persistent atrial fibrillation valvular heart disease status post mechanical aortic valve replacement. As you know we had attempted cardioversion for his atrial fibrillation as well as ablation in 10/13/2014 which was unsuccessful. At this particular time he says that he has been doing quite well being able to participate in most activities of daily living has not however been watching his diet as closely because he has been traveling. He has had no neck, jaw discomfort suggest angina no dizziness or diaphoresis no near syncope or syncope. We did perform a stress test on him at the end of 2015 and at that time he exercised and 0.1 metabolic equivalents without any evidence of ischemia. He had excellent function aerobic capacity. His echocardiogram which was also performed at that time demonstrated an ejection fraction of 55% with severe biatrial enlargement mild mitral and tricuspid regurgitation. His physical exam today demonstrates occasional rales, irregular rate and rhythm crisp prosthetic sounds and no pedal edema. No carotid bruits noted. Intake Vital Signs04/16/18 Height 5 ft 8 in 04/16/18 Weight: 187 lb 04/16/18 Body Mass Index (BMI) 28.4 04/16/18 Blood Pressure 120/62 04/16/18 Respiratory Rate 18 04/16/18 Pulse Rate 68 Intake Visit Reasons: 6 M FU (pt r/s from 8-) Allergies No Known Allergies Allergy (Verified 04/16/18 15:42) Medications Aspirin E.C. [Ecotrin] 81 mg PO QHS 01/12/14 [History Confirmed 04/16/18] magnesium oxide 400 mg tablet 400 mg PO BREAKFAST tab 10/01/17 [History Confirmed 04/16/18] amoxicillin 500 mg capsule 500 mg PO .COMPLEX PRN #4 cap 10/20/17 [Rx Confirmed 04/16/18] amlodipine 10 mg tablet 10 mg PO QDAY #90 tab 11/09/17 [Rx Confirmed 04/16/18] potassium chloride ER 20 mEq tablet,extended release 20 meq PO BREAKFAST #90 tab 12/10/17 [Rx Confirmed 04/16/18] losartan 100 mg tablet 100 mg PO QDAY #90 tab 04/07/18 [Rx Confirmed 04/16/18] pravastatin 80 mg tablet 80 mg PO QHS #90 tab 04/07/18 [Rx Confirmed 04/16/18] warfarin 4 mg tablet 4 mg PO QHS #90 tab 04/07/18 [Rx Confirmed 04/16/18] furosemide 40 mg tablet 40 mg PO QAM #90 tab 04/12/18 [Rx Confirmed 04/16/18] vit A 7,160 unit-vit C 113 mg-vit E 100 zjdm-nita-losgoy tablet tab PO 04/16/18 [History Confirmed 04/16/18] [facility] 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) Hyperlipidemia (Chronic) Hypertension (Chronic) Atherosclerotic heart disease of [place] coronary artery without angina pectoris (Chronic) FPC use of drug (Chronic) Aortic valve stenosis, rheumatic (Chronic) Chronic atrial fibrillation (Chronic) Hypokalemia (Chronic) Localized edema (Chronic) History of Coumadin therapy (Chronic) Chronic diastolic heart failure (Chronic) Other secondary pulmonary hypertension (Chronic) Obstructive sleep apnea (Chronic) Shortness of breath (Chronic) Surgical History H/O aortic valve replacement (Chronic) Presence of aortocoronary bypass graft (Chronic) History of radiofrequency ablation procedure for cardiac arrhythmia (Chronic) Family History Father , No hx of CAD No problems noted. Mother , age 79 Diabetes Social History Smoking Status: Never smoker ROS Const Const: Negative for fatigue, weakness, difficulty sleeping, frequent falls, excessive sweating or headache(s) Eyes Eyes: Negative for loss of peripheral vision, transient loss of vision, blurry vision, tunnel vision or double vision ENT ENT: Negative for headache(s), dizziness, Nosebleed/epistaxis or balance problems Cardio Chest Pain: No Palpitations: No Edema: None Muscle aches with walking: None Additional Details: Chronic vascular changes of BLE. C/O itching of BLE. Resp Respiratory: Positive for SOB with activity (SOB with increase activity); negative for SOB at rest, SOB orthopnea\SOB lying down, paroxysmal nocturnal dyspnea or Cough GI GI: Negative nausea, heartburn, black,tarry stools or vomiting : Negative for hematuria Musc Musc: Negative for balance problems, muscle aches/ myalgia, muscle weakness or joint pain Skin Skin: Positive for other (BLE itching); negative non-healing lesions, unusual bruising or rash Neuro Neuro: Negative for weakness, frequent falls, headache(s), blurry vision, double vision, dizziness, lightheadedness, orthostatic symptoms, near syncope, syncope or lack of coordination Carlos Hematologic/Lymphatic: Negative for easy bruising or easy bleeding Endo Endo: Negative for fatigue, excessive sweating or increased thirst/drinking Psych Psych: Negative for anxiety or depression Allergy Allergy/Immunology: Negative for hives, Negative for rash Cardiology Exam Const Appearance: cooperative, healthy appearing, well developed, well groomed and no acute distress Nutritional Appearance: well nourished and average body habitus Orientation: alert, awake and oriented x3 Head Head: normal to inspection, normocephalic and atraumatic Ears: hearing grossly normal bilaterally and external ears normal Nose: external nose normal, nasal mucous membranes and turbinates normal, nares normal, septum normal, no nasal discharge Face and Sinus: face symmetric Mouth: oral mucosae normal, tongue normal, oropharynx normal and moist mucous membranes Teeth and gingiva: dentition normal Throat: posterior oropharynx normal, tonsils normal and uvula midline Eyes General: appearance normal, both eyes and all related structures Eyelids: eyelids normal Conjunctivae: conjunctivae normal Pupils: PERRL, normal by confrontation and accommodation normal EOM: EOM intact bilaterally Neck Neck: normal visual inspection, trachea midline and no JVD JVD: +5 Carotids: normal carotid upstroke and bounding pulses Chest Chest inspection: normal inspection of the chest, symmetric chest movement and normal respiratory effort Auscultation: Bilateral: Rales GI GI: normal to inspection, soft, no hepatosplenomegaly and bowel sounds present Neuro General: alert, awake, oriented x3, no focal sensory deficit, gait normal and moves all extremities Skin Skin: no rashes or lesions noted Extremities Pulses: Normal: Right Femoral Pulse, Left Femoral Pulse, Right Dorsalis Pedis Pulse, Left Dorsalis Pedis Pulse, Right Posterior Tibial Pulse, Left Posterior Tibial Pulse, Right Radial Pulse, Left Radial Pulse Lower Extremity Edema: None: Bilateral Musculoskel Musculoskeletal: No joint tenderness Psych Psychological: normal affect Assessment AND Plan 1. H/O aortic valve replacement Z95.2 04/30/2001 @ [facility] Plan His aortic valve appears to be stable with his last echocardiogram demonstrating preserved ejection fraction and no significant gradient across the valve. My recommendations will be to keep him on the same medications. His last trans-valvular mean gradient was 18 mmHg with mild eccentric mitral and aortic regurgitation. 2. Essential hypertension I10 Plan His blood pressure appears to be under good control on the current medical therapy once again no changes will be made with regard to the above. 3. Chronic diastolic heart failure I50.32 Plan He appears to have a mild exacerbation of the above. I am recommending that he increase his Lasix to 40 mg twice a day for the next 3 days. And then go back to 40 mg once a day. I have asked him to check his weight daily and adjust his Lasix dose as appropriate. He should also reduce amount of saline and salt intake. 4. Chronic atrial fibrillation I48.2 Plan He does have a history of chronic persistent atrial fibrillation with a controlled ventricular response rate. As you know we had attempted ablation but were unsuccessful. He continues to do well he is on anticoagulation maintaining an INR of 2.5-3.5. 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) Coding Level of Care Code Off vis,est,level 4 Diagnoses H/O aortic valve replacement Z95.2 Essential hypertension I10 Chronic diastolic heart failure I50.32 Chronic atrial fibrillation I48.2 Coding Level of Care Code Off vis,est,level 4 Diagnoses H/O aortic valve replacement Z95.2 Essential hypertension I10 Chronic diastolic heart failure I50.32 Chronic atrial fibrillation I48.2 04/16/18 1618 <Electronically signed by Albert Mojica MD> Date Albert Mojica MD Cosigner Signature: Date (if applicable) CC: Michael Cortez MD PROTIME W/INR Collected: 03/26/2018 Status: F Source: KELLOGG FINGERSTICK 2:50 PM [facility] REPOSITORY TYPE CODE TESTS RESULT OUT OF REFERENCE UNITS RANGE LAB L9200.1001 11.9-14.4 SEC High PROTIME ISTAT 37.2 Result Comment: Reference Range 11.9 - 14.4 LAB L9200.2000 Normal INR ISTAT 3.30 Result Comment: Critical Value > 3.5 Performed By: #### L9200.0000 #### [facility] Point of Care [facility] [address] [place], [place] [address] PROTHROMBIN TIME W/INR Collected: 03/16/2018 Status: F Source: ELIUD 10:36 AM [facility] REPOSITORY Order Comment: This critical result is preliminary and not confirmed. Venous sample sent to main laboratory for confirmation. A call with confirmation result will follow. See specimen #:[id number] for confirmation result. Preliminary critical result Call to/Read back by . 03/16/18 Alyssa BERRY. TYPE CODE TESTS RESULT OUT OF REFERENCE UNITS RANGE LAB L300.4150 11.7-14.9 SECONDS High PROTIME 35.9 LAB L300.4200 High alert INR 3.6 Result Comment: CRITICAL VALUE VERIFIED. CALLED TO CLARENCE AT 'S OFFICE. 03/16/18 1107 Milton Nascimento. RESULTS READ BACK BY SAME. Performed By: #### L300.3900 #### [facility] [address] [place], [address] PROTIME W/INR Collected: 03/16/2018 Status: F Source: KELLOGG FINGERSTICK 10:32 AM [facility] REPOSITORY TYPE CODE TESTS RESULT OUT OF REFERENCE UNITS RANGE LAB L9200.1001 11.9-14.4 SEC High PROTIME ISTAT 43.5 Result Comment: Reference Range 11.9 - 14.4 LAB L9200.2000 High alert INR ISTAT 3.90 Result Comment: Critical Value > 3.5 Performed By: #### L9200.0000 #### [facility] Point of Care [address] [place] [address] PROTHROMBIN TIME W/INR Collected: 03/01/2018 Status: F Source: KELLOGG 1:23 PM [facility] REPOSITORY Order Comment: Result obtained is for confirmation testing of Fingerstick PT/INR Specimen # [id number] . 03/01/[address] [facility] THIS CONFIRMATION SPECIMEN RESULT IS FROM VENOUS BLOOD. TYPE CODE TESTS RESULT OUT OF RANGE REFERENCE UNITS LAB L300.4150 11.7-14.9 SECONDS High PROTIME 33.1 LAB L300.4200 Normal INR 3.2 Performed By: #### L300.3900 #### [facility] [address] [place], [address] PROTIME W/INR Collected: 03/01/2018 Status: F Source: KELLO[place] FINGERSTICK 1:19 PM [facility] REPOSITORY Order Comment: This critical result is preliminary and not confirmed. Venous sample sent to main laboratory for confirmation. A call with confirmation result will follow. See specimen #:[id number] for confirmation result. Preliminary critical result Call to/Read back by AGUSTÍN LOPEZ AT [facility]. 03/01/[address] [facility]. TYPE CODE TESTS RESULT OUT OF REFERENCE UNITS RANGE LAB L9200.1001 11.9-14.4 SEC High PROTIME ISTAT 43.2 Result Comment: Reference Range 11.9 - 14.4 LAB L9200.2000 High alert INR ISTAT 3.80 Result Comment: Critical Value > 3.5 Performed By: #### L9200.0000 #### [facility] Point of Care [address] [place] [address] PROTIME W/INR Collected: 02/09/2018 Status: F Source: ELIUD FINGERSTICK 8:25 AM [facility] REPOSITORY TYPE CODE TESTS RESULT OUT OF REFERENCE UNITS RANGE LAB L9200.1001 11.9-14.4 SEC High PROTIME ISTAT 37.4 Result Comment: Reference Range 11.9 - 14.4 LAB L9200.2000 Normal INR ISTAT 3.30 Result Comment: Critical Value > 3.5 Performed By: #### L9200.0000 #### [facility] Point of Care [address] [place] [address] PROTHROMBIN TIME W/INR Collected: 01/29/2018 Status: F Source: ELIUD 8:08 AM [facility] REPOSITORY Order Comment: Order Date: 03/10/17 Order Info: [id number] - *PT/INR - Standing Order Comments: Standing Order-Reason: TYPE CODE TESTS RESULT OUT OF REFERENCE UNITS RANGE LAB L300.4150 11.7-14.9 SECONDS High PROTIME 37.0 LAB L300.4200 High alert INR 3.7 Result Comment: CRITICAL VALUE VERIFIED. CALLED TO SAEID JO AT 'S OFFICE. 01/29/18 1020 Milton Nascimento. RESULTS READ BACK BY SAME. Performed By: #### L300.3900 #### [facility] [address] [place], [address] LIVER PROFILE Collected: 01/29/2018 Status: F Source: ELIUD 8:07 AM [facility] REPOSITORY Order Comment: Order Date: 07/09/17 Order Info: [id number] - *Hepatic Function Panel Order Info: [id number] - *Lipid Profile CC PCP Comments: 12 hours fasting, may have water. TYPE CODE TESTS RESULT OUT OF RANGE REFERENCE UNITS LAB L501.1500 6.4-8.2 g/dL Normal T PROT 7.7 LAB L501.1800 3.2-5.0 g/dL Normal ALB 4.3 LAB L501.1950 2.2-4.2 g/dL Normal GLOB 3.4 LAB L501.4100 15-37 U/L Normal AST 35 LAB L501.4305 45-117 U/L Normal ALK P 86 LAB L501.4405 16-61 U/L Normal ALT 29 LAB L501.4600 0.20-1.00 mg/dL Normal T BILI 1.00 LAB L501.4700 0.00-0.30 mg/dL Normal D BILI 0.20 Performed By: #### L500.3400 #### [facility] [address] [place], [address] LIPID PROFILE Collected: 01/29/2018 Status: F Source: ELIUD 8:07 AM [facility] REPOSITORY Order Comment: Order Date: 07/09/17 Order Info: [id number] - *Hepatic Function Panel Order Info: [id number] - *Lipid Profile CC PCP Comments: 12 hours fasting, may have water. TYPE CODE TESTS RESULT OUT OF RANGE REFERENCE UNITS LAB L501.4900 200 mg/dL Normal CHOL 154 Result Comment: <200 mg/dL Desirable 200-240 mg/dL Borderline >240 mg/dL High Risk LAB L501.5000 mg/dL Normal TRIG 179 Result Comment: The drugs N-Acetylcysteine and Metamizole may falsely depress this assay. Serum Triglycerides Reference Interval Normal <150 mg/dL Borderline high 150 - 199 mg/dL High 200 - 499 mg/dL Very High > or = 500 mg/dL LAB L501.6400 mg/dL Normal HDL 40 Result Comment: The drugs N-Acetylcysteine and Metamizole may falsely depress this assay. Reference Range HDL <40 mg/dL Low HDL Cholesterol HDL >or= 60 mg/dL High HDL Cholesterol LAB L501.6500 0-130 mg/dL Normal LDL 78 LAB L501.6600 5-40 mg/dL Normal VLDL 36 Performed By: #### L500.4100 #### [facility] [address] [place], [address] CBC-COMPLETE BLOOD CNT Collected: 01/29/2018 Status: F Source: ELIUD NO DIFF 8:07 AM [facility] REPOSITORY Order Comment: Order Date: 01/05/18 Order Info: [id number] - CBC TYPE CODE TESTS RESULT OUT OF RANGE REFERENCE UNITS LAB L100.1000 4.4-11.0 K/mm3 Normal WBC 8.2 LAB L100.1200 4.6-6.2 M/mm3 Low RBC 4.59 LAB L100.1300 13.0-16.5 g/dl Normal HGB 13.8 LAB L100.1400 40-54 % Normal HCT 41.9 LAB L100.1500 80-94 fL Normal MCV 91.3 LAB L100.1600 27.0-32.0 pg Normal MCH 30.1 LAB L100.1700 32-36 g/gl Normal MCHC 32.9 LAB L100.1810 11.6-14.6 % Normal RDW CV 14.0 LAB L100.1820 35.1-43.9 fl High RDW SD 46.1 LAB L100.1900 150-450 K/mm3 Normal PLT 282 LAB L100.2000 6.2-12.0 fl Normal MPV 9.6 Performed By: #### L100.0500, L500.4050, L501.9520 #### [facility] [address] [place], [address] COMPREHENSIVE METABOLIC Collected: 01/29/2018 Status: F Source: [facility] 8:07 AM [facility] REPOSITORY Order Comment: Order Date: 01/05/18 Order Info: [id number] - CMP Order Info: [id number] - TSH TYPE CODE TESTS RESULT OUT OF RANGE REFERENCE UNITS LAB L501.0100 74-106 mg/dL High GLU 130 Result Comment: Fasting Glucose result greater than or equal to 126 mg/dL suggests DIABETES MELLITUS per A.D.A. criteria. Please note revised GLUCOSE reference range effective 2017. LAB L501.1000 7-18 mg/dL High BUN 19 LAB L501.1100 0.70-1.30 mg/dL Normal CREAT,SERUM 1.19 Result Comment: The validity of the calculated GFR AND GFRAA in patients over 70 years has not been determined. Clinical correlation is essential. LAB L501.1110 >60 mL/min Normal EST GFR 63 LAB L501.1115 >60 mL/min Normal EST GFR - AA 76 LAB L501.1300 10-20 RATIO Normal BUN/CRE 16.0 LAB L501.1500 6.4-8.2 g/dL Normal T PROT 7.6 LAB L501.1800 3.2-5.0 g/dL Normal ALB 4.2 LAB L501.1950 2.2-4.2 g/dL Normal GLOB 3.4 LAB L501.2000 0.9-2.4 RATIO Normal A/G 1.2 LAB L501.2200 8.5-10.1 mg/dL Normal CA 9.0 LAB L501.4100 15-37 U/L Normal AST 33 LAB L501.4305 45-117 U/L Normal ALK P 84 LAB L501.4405 16-61 U/L Normal ALT 30 LAB L501.4600 0.20-1.00 mg/dL Normal T BILI 1.00 LAB L501.5300 136-145 mmol/L Normal NA 142 LAB L501.5600 3.5-5.1 mmol/L Normal K 3.7 LAB L501.5900 98-107 mmol/L Normal CL 104 LAB L501.6100 21.0-32.0 mmol/L Normal CO2 29.0 LAB L501.6200 5-15 Normal GAP 9 Performed By: #### L100.0500, L500.4050, L501.9520 #### [facility] [address] [place], [place], [address] THYROID STIM HORMONE Collected: 01/29/2018 Status: F Source: ELIUD (TSH) 8:07 AM [facility] REPOSITORY Order Comment: Order Date: 01/05/18 Order Info: [id number] - CMP Order Info: [id number] - TSH TYPE CODE TESTS RESULT OUT OF RANGE REFERENCE UNITS LAB L501.9520 0.358-3.74 uIU/mL Normal TSH 2.39 Performed By: #### L100.0500, L500.4050, L501.9520 #### [facility] [address] [place], [place], [address] PROTHROMBIN TIME W/INR Collected: 01/11/2018 Status: F Source: ELIUD 11:40 AM [facility] REPOSITORY TYPE CODE TESTS RESULT OUT OF RANGE REFERENCE UNITS LAB L300.4150 11.7-14.9 SECONDS High PROTIME 21.9 LAB L300.4200 Normal INR 1.9 Performed By: #### L300.3900 #### [facility] [address] [place], [address] PROTIME W/INR Collected: 12/31/2017 Status: F Source: [place] FINGERSTICK 2:05 PM [facility] REPOSITORY TYPE CODE TESTS RESULT OUT OF REFERENCE UNITS RANGE LAB L9200.1001 11.9-14.4 SEC High PROTIME ISTAT 30.7 Result Comment: Reference Range 11.9 - 14.4 LAB L9200.2000 Normal INR ISTAT 2.70 Result Comment: Critical Value > 3.5 Performed By: #### L9200.0000 #### [facility] Point of Care [address] [place] [address] WOUND CTR HISTORY Observed: 12/25/2017 Status: F Source: ELIUD AND PHYSICAL 1:06 PM [facility] REPOSITORY [facility] W[facility] [address] [facility] [place] [address] Wound Ctr History AND Physical 12/24/17 1902 MR#: [id number] Acct: [id number] Name: GEORGE RUTH Rep #: [id number] : 1935 82 From: Eveline Alfred MD PCP: Michael Cortez MD Status: REG RCR Y Location: WC (1) Ulcer of right lower extremity with fat layer exposed Status: Acute Current Visit: Yes Code(s): L97.912 - Non- pressure chronic ulcer of unspecified part of right lower leg with fat layer exposed (2) Hematoma of lower limb Status: Acute Current Visit: No Code(s): S80.10XA - Contusion of unspecified lower leg, initial encounter (3) History of Coumadin therapy Status: Chronic Current Visit: No Code(s): Z92.29 - Personal history of other drug therapy History of Present Illness Date of Service: 12/24/17 Chief Complaint: Right Lower extremity wound. History of Wound: Mr. Ruth is an 82yo woman who has been seen here by Kia Maciel NP for healing left lower extremity wound. Sustained a wound several months ago after a tile fell on his leg. Initially developed hematoma which was excised here in the wound center he is subsequently had wound care. Wound is slowly progressed. He has been on antibiotics due to culture positive growth. He denies any complaints at this time. There is no significant pain at the site or discharge noted. 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) FPC current use of anticoagulant (Chronic) Hyperlipidemia (Chronic) Hypertension (Chronic) Atherosclerotic heart disease of [place] coronary artery without angina pectoris (Chronic) H/O aortic valve replacement (Chronic) 04/30/2001 @ [facility] Presence of aortocoronary bypass graft (Chronic) FPC use of drug (Chronic) Anticoagulants Aortic valve stenosis, rheumatic (Chronic) History of radiofrequency ablation procedure for cardiac arrhythmia (Chronic) Chronic atrial fibrillation (Chronic) Hypokalemia (Chronic) Localized edema (Chronic) History of Coumadin therapy (Chronic) Chronic diastolic heart failure (Chronic) Other secondary pulmonary hypertension (Chronic) Allergies/Adverse Reactions: Allergies No Known Allergies Allergy (Verified 10/06/17 14:07) Home Medications: Ambulatory Orders Medication Instructions Recorded Smoking Status: Never smoker Tobacco Use: Non-smoker Review of Systems Constitutional: Denies: Anorexia, Chills, Fever, Malaise Eyes: Denies: Pain, Redness HEENT: Denies: Difficulty Swallowing Cardiovascular: Denies: Chest Pain, Chest Tightness Respiratory: Denies: Cough, Hemoptysis Gastrointestinal: Denies: Abdominal Pain, Hematemesis, Vomiting Skin: Denies: Dryness, Jaundice Psychiatric: Denies: Anxiety - Physical Exam Vital Signs Temp Pulse Resp BP 99.3 F H 84 16 148/76 H 12/24/17 12:48 12/24/17 12:48 12/24/17 12:48 12/24/17 12:48 General: Alert, Oriented x3, Cooperative, No apparent distress HEENT: Atraumatic, Normocephalic Oral: Moist Mucosa Neck: Supple Lungs: Normal air movement Cardiovascular: Regular rate Abdomen: Soft, Non Tender Extremities: No cyanosis Skin: Ulcer/ Wound Wound Measurements and Assessment WC - Nurse 1 - General Ulcer Measurement Start: 12/24/17 12:46 Freq: Status: Active Protocol: Activity Type Activity Date Activity User E-Sign Co-Sign Detail Recorded Client Recorded Date Recorded By Document 12/24/17 12:48 [id number] [id number] 12/24/17 12:56 [facility] Wound Center Nurse 1 WC - Nurse 2 - General Ulcer CM Notes Start: 12/24/17 12:46 Freq: Status: Active Protocol: Activity Type Activity Date Activity User E-Sign Co-Sign Detail Recorded Client Recorded Date Recorded By Document 12/24/17 13:17 DV [id number] 12/24/17 13:20 DV Musculoskeletal: No Muscle Wasting Neurological: Cranial nerves II-XII grossly intact Psych/Mental Status: Normal Affect Debridement Note Post-Debridement Measurements/Treatment WC - Nurse 2 - General Ulcer CM Notes Start: 12/24/17 12:46 Freq: Status: Active Protocol: Activity Type Activity Date Activity User E-Sign Co-Sign Detail Recorded Client Recorded Date Recorded By Document 12/24/17 13:17 DV [id number] 12/24/17 13:20 DV Wound Center Nurse 2 #2 RIGHT SALMON -Time 13:18 -Correct Patient Yes -Correct Side, Site, Position Yes Wound debrided: Right Lower etxremity Wound Grade/Stage: Stage II Type of Debridement: Excisional debridement Anesthesia Used: 4% Lidocaine Solution Depth: Down to and including healthy tissue, in the subcutaneous layer Percentage of wound debrided: 100 Instrument Used: 5mm curette Tissue Removed: Scab, slough, fibrin and devitalized tissue Severity: Fat Layer Exposed Amount of bleeding with debridement: Mild Bleeding Controlled with: Pressure Patient tolerated procedure well Assessment/Plan Active Problems (Last Updated 10/20/17 @ 17:27 by Britney Boyd) 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 No increased tenderness per patient. Debridement done as documented above, procedure was well-tolerated. Cultures taken. Cecy daily moistened with Adaptic over top. Continue improved/increase protein intake/supplements. Continue Tubigrip for edema management. Elevate lower extremity when seated and in bed. Follow-up in 1 week. This note was generated with [employer] software. It may contain incorrect words, spelling, and punctuation that were not noted in checking the note before signing. 12/25/17 1306 <Electronically signed by Eveline Alfred MD> Date Eveline Alfred MD CC: Signed Observed: 12/24/2017 Status: F Source: ELIUD CULTURE, DEEP WOUND 1:15 PM [facility] REPOSITORY Comments: RIGHT SALMON ULCER Gram Stain Gram Stain No White Blood Cells No organisms seen Wound Culture No growth aerobically. Cult, Anaerobic Studies have confirmed that Anaerobic Gram Positive Cocci are routinely susceptible to: Penicillin/Ampicillin, Ampicillin/Sulbactam, Piperacillin/Tazobactam, Cefoxatin, Ertapenem, Imipenem, Meropenem and Metronidazole and vary in resistance to: Clindamycin and Moxifloxacin. ORGANISM 1: Anaerobic cocci Performed By: #### M100.1500 #### [facility] [address] [facility] [place], [address] VENOUS DUPLEX LOWER Observed: 12/21/2017 Status: F Source: ELIUD EXTREMITY 9:11 PM [facility] REPOSITORY [facility] Cardiovascular Services [address] [place] [address] Venous Duplex US, Unilateral 12/21/17 1449 MR#: [id number] Acct: [id number] Name: GEORGE RUTH Rep #: [id number] : 1935 82 From: Saud Soto MD Attending Dr: Michael Cortez MD Status: REG CLI Ordering Dr: Fernando Cortez MD Date: 12/21/17 Location: CVS Sex: M C Admitted: Reason For Study: LEG PAIN RIGHT LEFT GSV is normal. CFV is compressible, spontaneous, phasic, CFV is compressible, spontaneous, phasic, competent, and demonstrates normal competent and demonstrates normal augmentation. augmentation. FV is compressible, spontaneous, phasic, competent and demonstrates normal augmentation. POP V is compressible, spontaneous, phasic, competent and demonstrates normal augmentation. T/P Trunk is compressible. PTV is compressible. RT PerV is compressible. Procedure Exam performed in department. A preliminary report was called and/or faxed to Dr. Cortez. Interpretation Summary Deep veins of the right lower extremity are patent and compressible segmentally. There is no evidence of right lower extremity deep vein thrombosis. Valvular competence appears intact within the proximal deep venous system on the right . The right greater saphenous vein appears patent and compressible segmentally. Ordering Physician: Michael Cortez Referring Physician: Michael Cortez Performed By: Caryn Ledbetter RVT 12/21/172110 Date Saud Soto MD CC: Michael Cortez MD Date Dictated: 12/21/17 1449 Date Transcribed: 12/21/172110 Information Services Manager: Signed CRP Collected: 12/21/2017 Status: F Source: KE[place] 1:57 PM [facility] REPOSITORY TYPE CODE TESTS RESULT OUT OF RANGE REFERENCE UNITS LAB L501.6710 0.0-3.0 mg/L High 9.61 C-REACTIVE PROT Result Comment: C-Reactive Protein (CRP) provides useful information for the diagnosis, therapy and monitoring of inflammatory processes and associated diseases. For the evaluation of Relative Risk for Cardiovascular Disease, a High Sensitivity CRP (HSCRP) should be ordered. Performed By: #### L501.6710 #### [facility] [address] [place], [address] CBC W/DIFF, AUTOMATED Collected: 12/21/2017 Status: F Source: KELLO[place] 1:56 PM [facility] REPOSITORY Order Comment: Order Date: 12/21/17 Order Info: [id number] - CBCD Order Info: [id number] - SED TYPE CODE TESTS RESULT OUT OF RANGE REFERENCE UNITS LAB L100.1000 4.4-11.0 K/mm3 High WBC 11.8 LAB L100.1200 4.6-6.2 M/mm3 Low RBC 3.91 LAB L100.1300 13.0-16.5 g/dl Low HGB 12.0 LAB L100.1400 40-54 % Low HCT 35.8 LAB L100.1500 80-94 fL Normal MCV 91.6 LAB L100.1600 27.0-32.0 pg Normal MCH 30.7 LAB L100.1700 32-36 g/gl Normal MCHC 33.5 LAB L100.1810 11.6-14.6 % Normal RDW CV 13.9 LAB L100.1820 35.1-43.9 fl High RDW SD 46.0 LAB L100.1900 150-450 K/mm3 Normal PLT 280 LAB L100.2000 6.2-12.0 fl Normal MPV 9.7 LAB L100.2100 47-70 % High NEUT% 73.7 LAB L100.2200 19-41 % Low LY% 13.2 LAB L100.2300 0-10 % High MONO% 10.8 LAB L100.2400 0-5 % Normal EO% 1.3 LAB L100.2500 0-1 % Normal BASO% 0.6 LAB L100.2550 0.0-0.9 % Normal IM GRAN % 0.400 Result Comment: IG% - Immature Granulocytes (promyelocytes, myelocytes and metamyelocytes) > 1% indicates that a LEFT SHIFT is Present. LAB L100.2620 2.0-7.7 X10 3/uL High Absolute Neut 8.7 LAB L100.2720 0.83-4.51 X10 3/ul Normal Absolute Lymph 1.56 Performed By: #### L100.0100, L101.9900 #### [facility] [address] [place], [place], [id number] ERYTHROCYTE SED RATE Collected: 12/21/2017 Status: F Source: ELIUD 1:56 PM [facility] REPOSITORY Order Comment: Order Date: 12/21/17 Order Info: [id number] - CBCD Order Info: [id number] - SED TYPE CODE TESTS RESULT OUT OF RANGE REFERENCE UNITS LAB L102.0000 0-20 mm/hr Normal SED RATE 12 Performed By: #### L100.0100, L101.9900 #### [facility] [address] [place], [address] PROTHROMBIN TIME W/INR Collected: 12/21/2017 Status: F Source: ELIUD 1:54 PM [facility] REPOSITORY TYPE CODE TESTS RESULT OUT OF RANGE REFERENCE UNITS LAB L300.4150 11.7-14.9 SECONDS High PROTIME 33.8 LAB L300.4200 Normal INR 3.3 Performed By: #### L300.3900 #### [facility] [address] PROTIME W/INR Collected: 12/15/2017 Status: F Source: ELIUD FINGERSTICK 8:44 AM [facility] REPOSITORY TYPE CODE TESTS RESULT OUT OF REFERENCE UNITS RANGE LAB L9200.1001 11.9-14.4 SEC High PROTIME ISTAT 22.9 Result Comment: Reference Range 11.9 - 14.4 LAB L9200.2000 Normal INR ISTAT 2.00 Result Comment: Critical Value > 3.5 Performed By: #### L9200.0000 #### [facility] Point of Care [address] [place], [place] [address] PROTIME W/INR Collected: 12/11/2017 Status: F Source: ELIUD FINGERSTICK 9:40 AM [facility] REPOSITORY TYPE CODE TESTS RESULT OUT OF REFERENCE UNITS RANGE LAB L9200.1001 11.9-14.4 SEC High PROTIME ISTAT 22.2 Result Comment: Reference Range 11.9 - 14.4 LAB L9200.2000 Normal INR ISTAT 1.90 Result Comment: Critical Value > 3.5 Performed By: #### L9200.0000 #### [facility] Point of Care [address] [place] [id number] Observed: 12/11/2017 Status: F Source: ELIUD CULTURE, DEEP WOUND 9:00 AM [facility] REPOSITORY Comments: RIGHT SALMON ULCER/INFECTED WOUND/NON HEALING WOUND Gram Stain Gram Stain 3+ Red Blood Cells No White Blood Cells No organisms seen Wound Culture ORGANISM 1: Serratia marcescens Amount Growth Growth Serratia marcescens: REACTION Amoxacillin/Clavulanic Acid $ >=32 R Cefazolin $ >=64 R Cefepime $ <=1 S Ceftriaxone $ <=1 S Ciprofloxacin $ <=0.25 S Ertapenim $$$ <=0.5 S Gentamicin $ <=1 S Levofloxacin $ <=0.12 S Tobramycin $ 2 S Trimethoprim/Sulfametho $ <=20 S (NF) indicates non-formulary drug at [facility]. Approval by Infectious Disease Specialist required before non-formulary drugs may be ordered and/or dispensed. Cult, Anaerobic No growth in 5 days. Performed By: #### M100.1500 #### [facility] [address] [place], [address] PROTIME W/INR Collected: 10/30/2017 Status: F Source: KELLOGG FINGERSTICK 12:58 PM [facility] REPOSITORY TYPE CODE TESTS RESULT OUT OF REFERENCE UNITS RANGE LAB L9200.1001 11.9-14.4 SEC High PROTIME ISTAT 38.3 Result Comment: Reference Range 11.9 - 14.4 LAB L9200.2000 Normal INR ISTAT 3.40 Result Comment: Critical Value > 3.5 Performed By: #### L9200.0000 #### [facility] Point of Care [address] [place] [address] WOUND CTR HISTORY Observed: 10/23/2017 Status: F Source: ELIUD AND PHYSICAL 11:04 AM [facility] REPOSITORY [facility] Wound Healing Center [address] [address] Wound Ctr History AND Physical 10/23/17 1050 MR#: [id number] Acct: [id number] Name: GEORGE RUTH Rep #: [id number] : 1935 81 From: Kia Maciel RUSSIAN HISTORY PROFESSOR-C PCP: Michael Cortez MD Status: REG RCR Y Location: WC (1) Hematoma of left lower extremity Status: Acute Current Visit: Yes Qualifiers: Encounter type: initial encounter Qualified Code(s): S80.12XA - Contusion of left lower leg, initial encounter Code(s): S80.12XA - Contusion of left lower leg, initial encounter (2) Hematoma of lower limb Status: Acute Current Visit: Yes Code(s): S80.10XA - Contusion of unspecified lower leg, initial encounter (3) Chronic atrial fibrillation Status: Chronic Current Visit: Yes Code(s): I48.2 - Chronic atrial fibrillation (4) H/O aortic valve replacement Status: Chronic Current Visit: Yes Code(s): Z95.2 - Presence of prosthetic heart valve Comment: 04/30/2001 @ [facility] (5) History of Coumadin therapy Status: Chronic Current Visit: Yes Code(s): Z92.29 - Personal history of other drug therapy History of Present Illness Date of Service: 10/23/17 Chief Complaint: Follow-up on a hematoma on the left lower extremity History of Wound: 81-year-old white male that was shopping in a store on October 15, 2017 when a tile on his lower extremity and caused a bruise. Patient is on Coumadin therapy and therefore it ballooned out. Slight abrasion to the top of the skin and was seen by his family doctor who put a needle and took some blood out and cultured for no bacteria found. His started on antibiotics anyways and told him he needed to go to the wound center. We proceeded to numb the area and I AND D it with a 15 blade half-iniguez cut around to extricate the blood clot and closed with 4-0 nylon after much irrigation with normal saline with 4 sutures. She tolerated procedure well will follow up with nurse visit in 1 week for suture removal possibly or in 2 weeks to see if it is healing well. Compression will be applied till healed. 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) Hyperlipidemia (Chronic) Hypertension (Chronic) Atherosclerotic heart disease of [place] coronary artery without angina pectoris (Chronic) H/O aortic valve replacement (Chronic) 04/30/2001 @ [facility] Presence of aortocoronary bypass graft (Chronic) FPC use of drug (Chronic) Anticoagulants Aortic valve stenosis, rheumatic (Chronic) History of radiofrequency ablation procedure for cardiac arrhythmia (Chronic) Chronic atrial fibrillation (Chronic) Hypokalemia (Chronic) Localized edema (Chronic) History of Coumadin therapy (Chronic) Chronic diastolic heart failure (Chronic) Other secondary pulmonary hypertension (Chronic) Past Medical History: Hematoma lower extremity Allergies/Adverse Reactions: Allergies No Known Allergies Allergy (Verified 10/06/17 14:07) Home Medications: Ambulatory Orders Medication Instructions Recorded Aspirin E.C. [Ecotrin] 81 mg PO QHS 01/12/14 Pravastatin [Pravachol] 80 mg PO QHS 01/12/14 furosemide 40 mg tablet 40 mg PO BREAKFAST 10/01/17 losartan 100 mg tablet 100 mg PO QDAY 10/01/17 Lives: Spouse/ Significant Other Smoking Status: Never smoker Tobacco Use: Non-smoker Alcohol: None Drugs: None Review of Systems Constitutional: Denies: Chills, Fever Eyes: Denies: Blurred vision, Drainage, Pain HEENT: Denies: Difficulty Hearing, Difficulty Swallowing, Sore Throat, Visual Changes Cardiovascular: Denies: Chest Pain, Palpitations, Syncope Respiratory: Denies: Cough, Shortness of Breath Gastrointestinal: Denies: Abdominal Pain, Nausea, Vomiting Genitourinary: Denies: Dysuria, Frequency Musculoskeletal: Denies: Joint Pain, Muscle pain Skin: Reports: Wounds - Bump on his lower extremity. Denies: Jaundice, Rash Neurological: Denies: Balance problems, Change in Speech, Difficulty swallowing, Focal weakness Psychiatric: Denies: Anxiety, Depression Endocrine: Denies: Change in Body Habitus Hematologic/ Lymphatic: Denies: Adenopathy - Physical Exam Vital Signs Temp Pulse Resp BP 98.7 F 69 18 149/69 H 10/23/17 08:29 10/23/17 08:29 10/23/17 08:29 10/23/17 08:29 General: Oriented x3, Cooperative, Well developed HEENT: Atraumatic, PERRLA Oral: Moist Mucosa Neck: Supple, No JVD Lungs: Clear to auscultation, Normal air movement Cardiovascular: Regular rate, Regular Rhythm Abdomen: Bowel Sounds Present, Soft, Non Tender, No Hepato-splenomegaly Extremities: No clubbing, Edema Skin: Ulcer/ Wound - A palpable firm hematoma on the right lower extremity Wound Measurements and Assessment WC - Nurse 1 - General Ulcer Measurement Start: 10/23/17 08:07 Freq: Status: Active Protocol: Activity Type Activity Date Activity User E-Sign Co-Sign Detail Recorded Client Recorded Date Recorded By Document 10/23/17 08:29 DV [id number] 10/23/17 08:53 DV Wound Center Nurse 1 [Ulcer Assessment] #1 Right Salmon -Combined with other wound No -Current Size (cm) - Length 2.5 -Current Size (cm) - Width 1.5 WC - Nurse 2 - General Ulcer CM Notes Start: 10/23/17 08:07 Freq: Status: Active Protocol: Activity Type Activity Date Activity User E-Sign Co-Sign Detail Recorded Client Recorded Date Recorded By Document 10/23/17 09:24 MW [id number] 10/23/17 09:41 MW Wound Center Nurse 2 Musculoskeletal: No Tenderness to Palpation of Joints or Extremities Lymphatic: No Cervical, Supraclavicular, or Inguinal Adenopathy Neurological: Cranial nerves II-XII grossly intact, Neuro grossly intact Psych/Mental Status: Normal Affect, Appropriate Debridement Note Post-Debridement Measurements/Treatment WC - Nurse 2 - General Ulcer CM Notes Start: 10/23/17 08:07 Freq: Status: Active Protocol: Activity Type Activity Date Activity User E-Sign Co-Sign Detail Recorded Client Recorded Date Recorded By Document 10/23/17 09:24 MW [id number] 10/23/17 09:41 MW Wound Center Nurse 2 #1 Right Salmon -Time 09:24 -Correct Patient Yes -Correct Side, Site, Position Yes Wash the right lower leg with Hibiclens and made a half-iniguez incision 2-1/2 cm long along the edge of the contusion with a 15 blade. Remove the blood clot that was hampering healing and sutured closed after irrigation with normal saline with 4- 0 nylon #4 sutures. Patient tolerated well Operative Diagnosis: I AND D with a irrigation and suturing Assessment/Plan Active Problems (Last Updated 10/20/17 @ 17:27 by Britney Boyd) Hematoma of left lower extremity (Acute) Hematoma of lower limb (Acute) H/O aortic valve replacement (Chronic) 04/30/2001 @ [facility] Chronic atrial fibrillation (Chronic) History of Coumadin therapy (Chronic) Assessment: Right lower leg hematoma. I AND D of a hematoma. Bilateral lower leg edema. A. fib. Coumadin therapy Plan: Wash leg with Hibiclens. Superficial wound care may use Aquacel. Cover with gauze and tape. Follow-up one week with a nurse visit for suture removal if necessary otherwise follow-up in 2 weeks. Double layer Tubigrip with Rui wrap over top for 48 hours then just the Tubigrip 10/23/17 1104 <Electronically signed by Kia MATHIAS> Date Kia MATHIAS CC: Signed PROTIME W/INR Collected: 10/20/2017 Status: F Source: ELIUD FINGERSTICK 1:47 PM [facility] REPOSITORY TYPE CODE TESTS RESULT OUT OF REFERENCE UNITS RANGE LAB L9200.1001 11.9-14.4 SEC High PROTIME ISTAT 26.9 Result Comment: Reference Range 11.9 - 14.4 LAB L9200.2000 Normal INR ISTAT 2.30 Result Comment: Critical Value > 3.5 Performed By: #### L9200.0000 #### [facility] Point of Care [address] [place] [address] Observed: 10/19/2017 Status: F Source: ELIUD CULTURE, WOUND 12:00 AM [facility] REPOSITORY Gram Stain Gram Stain 4+ Red Blood Cells 1+ White Blood Cells No organisms seen Wound Culture No growth aerobically. Performed By: #### M100.1400 #### [facility] [address] [place], [address] CARDIOLOGY VISIT Observed: 10/06/2017 Status: F Source: ELIUD REPORT 2:30 PM [facility] REPOSITORY [facility] [address] [place] [address] OFFICE VISIT Date of Service: 10/06/17 MR#: [id number] Acct: [id number] Name: GEORGE RUTH Rep #: [id number] : 1935 Provider: Albert Mojica MD Age/Sex: 81/M [place] [facility] [place]: Signed HPI HPI Chief Complaint: Follow-up visits. Details: GEORGE RUTH, is a 81 M who presents to the office today for a follow-up visit for his chronic persistent atrial fibrillation valvular heart disease status post mechanical aortic valve replacement. As you know we had attempted cardioversion for his atrial fibrillation as well as ablation in 10/13/2014 which was unsuccessful. At this particular time he says that he has been doing quite well being able to participate in most activities of daily living has not however been watching his diet as closely because he has been traveling. He has had no neck, jaw discomfort suggest angina no dizziness or diaphoresis no near syncope or syncope. We did perform a stress test on him at the end of 2015 and at that time he exercised and 0.1 metabolic equivalents without any evidence of ischemia. He had excellent function aerobic capacity. His echocardiogram which was also performed at that time demonstrated an ejection fraction of 55% with severe biatrial enlargement mild mitral and tricuspid regurgitation. His physical exam today demonstrates clear lung coburn regular rate and rhythm crisp prosthetic sounds and no pedal edema. No carotid bruits noted. Intake Vital Signs10/06/17 Height 5 ft 8 in 10/06/17 Weight: 193 lb 10/06/17 Body Mass Index (BMI) 29.3 10/06/17 Blood Pressure 120/60 Intake Visit Reasons: 6 M FU Is patient in pain?: No Allergies No Known Allergies Allergy (Verified 10/06/17 14:07) Medications Aspirin E.C. [Ecotrin] 81 mg PO DAILY 01/12/14 [History Confirmed 10/06/17] Pravastatin [Pravachol] 80 mg PO QHS 01/12/14 [History Confirmed 10/06/17] Amoxicillin [Amoxil] 500 mg PO PRN PRN 06/16/14 [History Confirmed 10/06/17] furosemide 40 mg tablet 40 mg PO QDAY 10/01/17 [History Confirmed 10/06/17] losartan 100 mg tablet 100 mg PO QDAY 10/01/17 [History Confirmed 10/06/17] losartan 100 mg tablet 100 mg PO QDAY 10/01/17 [History Confirmed 10/06/17] magnesium oxide 400 mg tablet 400 mg PO QDAY tab 10/01/17 [History Confirmed 10/06/17] potassium chloride ER 20 mEq tablet,extended release 20 meq PO QDAY 10/01/17 [History Confirmed 10/06/17] amlodipine 10 mg tablet 10 mg PO QDAY 10/06/17 [History Confirmed 10/06/17] warfarin 4 mg tablet 4 mg PO QDAY 10/06/17 [History Confirmed 10/06/17] Ejection fraction %: 55 to 59 (55% per echo 01/04/16) [facility] Medical History Hyperlipidemia (Chronic) Hypertension (Chronic) Atherosclerotic heart disease of [place] coronary artery without angina pectoris (Chronic) 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 Mother , age 79 Diabetes Social History Smoking Status: Never smoker ROS Const Const: Negative for body ache, fever(s), chills, night sweats, daytime sleepiness, difficulty sleeping, weight gain, weight loss, increased appetite, poor appetite, anorexia or other ENT ENT: Negative for balance problems Cardio Chest Pain: No Palpitations: Negative for Yes or No Edema: Bilateral (occasionally but Lasix helps) Muscle aches with walking: None Resp Respiratory: Negative for SOB with activity, SOB at rest, SOB orthopnea\SOB lying down, Coughing up blood/hemoptysis, chest congestion, pain on inspiration, snoring, stridor, wheezing, crackles, paroxysmal nocturnal dyspnea or other GI GI: Negative nausea, vomiting, heartburn, constipation, belching, bloating, cramping, vomiting blood/hematemesis, bright, red blood in stools, black,tarry stools, loose stools, Difficulty Swallowing or other Musc Musc: Negative for muscle aches/ myalgia, muscle weakness, joint pain or balance problems Cardiology Exam Const Appearance: cooperative, healthy appearing, well developed, well groomed and no acute distress Nutritional Appearance: well nourished and average body habitus Orientation: alert, awake and oriented x3 Head Head: normal to inspection, normocephalic and atraumatic Ears: hearing grossly normal bilaterally and external ears normal Nose: external nose normal, nasal mucous membranes and turbinates normal, nares normal, septum normal, no nasal discharge Face and Sinus: face symmetric Mouth: oral mucosae normal, tongue normal, oropharynx normal and moist mucous membranes Teeth and gingiva: dentition normal Throat: posterior oropharynx normal, tonsils normal and uvula midline Eyes General: appearance normal, both eyes and all related structures Eyelids: eyelids normal Conjunctivae: conjunctivae normal Pupils: PERRL, normal by confrontation and accommodation normal EOM: EOM intact bilaterally Neck Neck: normal visual inspection, trachea midline and no JVD JVD: +5 Carotids: normal carotid upstroke and bounding pulses Chest Chest inspection: normal inspection of the chest, symmetric chest movement and normal respiratory effort Auscultation: Bilateral: Clear to Auscultation Cardio Palpation: normal PMI Rate: regular rate Rhythm: regular rhythm Heart sounds: crisp prosthetic S1 and crisp prosthetic S2 Murmur: Grade 1/6 and early systolic GI GI: normal to inspection, soft, no hepatosplenomegaly and bowel sounds present Neuro General: alert, awake, oriented x3, no focal sensory deficit, gait normal and moves all extremities Skin Skin: no rashes or lesions noted Extremities Pulses: Normal: Right Femoral Pulse, Left Femoral Pulse, Right Dorsalis Pedis Pulse, Left Dorsalis Pedis Pulse, Right Posterior Tibial Pulse, Left Posterior Tibial Pulse, Right Radial Pulse, Left Radial Pulse Lower Extremity Edema: None: Bilateral Musculoskel Musculoskeletal: No joint tenderness Psych Psychological: normal affect Assessment AND Plan 1. Chronic atrial fibrillation I48.2 Plan He has chronic persistent atrial fibrillation with a controlled ventricular response rate and he is a anticoagulation maintain INR of 2.5-3.5. At this time I will not suggest that we make any changes other than see him again in approximately 6 months. 2. H/O aortic valve replacement Z95.2 04/30/2001 @ [facility] Plan His aortic valve appears to be stable with his last echocardiogram demonstrating preserved ejection fraction and no significant gradient across the valve. My recommendations will be to keep him on the same medications. His last trans-valvular mean gradient was 18 mmHg with mild eccentric mitral and aortic regurgitation. 3. Essential hypertension I10 Plan His blood pressure is excellent on the current medical therapy and I would not suggest that we make any changes. 4. Pure hypercholesterolemia E78.00; E78.0 Plan He remains on his current dose of statin his most recent lipid profile demonstrated total cholesterol of 53 LDL of 75 and HDL of 45. Thank you for allowing me to participate in the care of your patient. 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) Coding Level of Care Code Off vis,est,level 4 Diagnoses Chronic atrial fibrillation I48.2 H/O aortic valve replacement Z95.2 Essential hypertension I10 Hypertension type: essential hypertension Pure hypercholesterolemia E78.00; E78.0 Hyperlipidemia type: pure hypercholesterolemia Coding Level of Care Code Off vis,est,level 4 Diagnoses Chronic atrial fibrillation I48.2 H/O aortic valve replacement Z95.2 Essential hypertension I10 Hypertension type: essential hypertension Pure hypercholesterolemia E78.00; E78.0 Hyperlipidemia type: pure hypercholesterolemia 10/06/17 1430 <Electronically signed by Albert Mojica MD> Date Albert Vanceigner Signature: Date (if applicable) CC: Michael Cortez MD PROTIME W/INR Collected: 08/28/2017 Status: F Source: ELIUD FINGERSTICK 9:15 AM [facility] REPOSITORY TYPE CODE TESTS RESULT OUT OF REFERENCE UNITS RANGE LAB L9200.1001 11.9-14.4 SEC High PROTIME ISTAT 35.1 Result Comment: Reference Range 11.9 - 14.4 LAB L9200.2000 Normal INR ISTAT 3.10 Result Comment: Critical Value > 3.5 Performed By: #### L9200.0000 #### [facility] Point of [place] [address] [place] [address] ALLERGIES ALLERGIES DATE TYPE / CODE NAME / CODE REACTION SEVERITY SOURCE 05/21/2018 Drug No Known Unknown [facility] Allergy/4160 Allergies/F00 Hospital 89445(SNOMED 5617759(RXNOR Repository CT) M) ENCOUNTERS ENCOUNTERS ADMIT/DISCHARGE ACCOUNT ADMITTING ENCOUNTER LOCATION SOURCE NUMBER CLASS 07/30/2018 [id number] Ambulatory [place] Eliud 1 [facility] ing:LAB Repository 07/21/2018 [id number] Ambulatory [place] 6 [facility] ing:MFPLAB Repository 06/14/2018/ [id number] Ambulatory [place] 8 5 [facility] ing:LAB Repository 05/27/2018 [id number] Ambulatory BMSBuilding:B Eliud 9 [facility] Repository 05/27/2018 [id number] Ambulatory [place] Eliud 5 [facility] ing:CVS Repository 05/21/2018/ [id number] Ambulatory Eli[place] 8 9 [facility] ing:LAB Repository 05/21/2018/ [id number] Ambulatory BMSBuilding:B [place] 8 1 [facility] Repository 04/22/2018/ [id number] Ambulatory [place] 8 9 [facility] ing:LAB Repository 04/16/2018/ [id number] Ambulatory BMSBuilding:B [place] 8 5 [facility] Repository 03/16/2018/ [id number] Ambulatory [place] 8 9 [facility] ing:LAB Repository 02/09/2018/ [id number] Ambulatory [place] Eliud 8 3 [facility] ing:LAB Repository 02/01/2018 [id number] Ambulatory [place] 7 [facility] ing:WC Repository 01/14/2018/ [id number] Ambulatory [place] 8 5 [facility] ing:WC Repository 01/14/2018 [id number] Ambulatory BMSBuilding:W [place] 9 [facility] Repository 01/11/2018/ [id number] Ambulatory [place] Eli[place] 8 9 [facility] ing:LAB Repository 12/31/2017/ [id number] Ambulatory [place] 8 4 [facility] ing:LAB Repository 12/21/2017 [id number] Ambulatory [place] 3 [facility] ing:CVS Repository 12/21/2017/ [id number] Ambulatory [place] 8 6 [facility] ing:LAB Repository 12/11/2017/ [id number] Ambulatory [place] 8 7 [facility] ing:WC Repository 11/06/2017/ [id number] Ambulatory [place] 8 3 [facility] ing:WC Repository 10/30/2017/ [id number] Ambulatory [place] 8 9 [facility] ing:LAB Repository 10/20/2017/ [id number] Ambulatory [place] 8 4 [facility] ing:LAB Repository 10/19/2017 [id number] Ambulatory [place] Eliud 2 [facility] ing:LABSPEC Repository 10/06/2017/ [id number] Ambulatory BMSBuilding:B [place] 8 5 [facility] Repository 08/28/2017/ [id number] Ambulatory [place] 8 8 [facility] ing:LAB Repository PAYERS PAYERS ENCOUNTER GUARANTOR PAYER SUBSCRIBER SOURCE 07/30/2018 GEORGE Guzman Primary Insurance:MMO GEORGE K [place] [id number] MEDICAREPolicy [place] Number: [id number], [place] [id number] Repository 37787Ivi: 330) Date:3099-65-49CC [phone] (CZ) [address], [place] [address]LV: 07/30/2018 Secondary NOT GIVENUNK [place] Insurance:SELF PAY [facility] Number: Effective Repository Date:2018-06-24 07/21/2018 GEORGE Guzman Primary Insurance:MMO GEORGE K [place] [id number] MEDICAREPolicy [place]OB: [facility] Number: [id number], [place] [id number] Repository 267[address]Esb: (330) Date:6420-22-29WT [phone] (HP) [address], [place] [address]HH: 07/21/2018 Secondary NOT GIVENUNK [place] Insurance:SELF PAY [facility] Number: Effective Repository Date:2018-07-21 06/14/2018 GEORGE K Primary Insurance:MMO GEORGE Megan [place] [id number] [facility]ICAREPolicFormer[facility] [place] Number: [id number], [place] [id number] Repository [address]Ulb: (330) Date:4683-46-32CS [phone] (HP) [address] [place] [address]VO: 06/14/2018 Secondary NOT GIVENUNK [place] Insurance:SELF PAY [facility] Number: Effective Repository Date:2018-05-26 05/27/2018 GEORGE K Primary Insurance:MMO GEORGE K [place] [id number] MEDICARESaint [facility]woodD[facility]: Community [place] Number: [id number], [place] [id number] Repository [address]Mdu: (330) Date:8948-63-63ZQ [phone] () [address] [place] [address]GY: 05/27/2018 Secondary NOT GIVENUNK [place] Insurance:SELF PAY [facility] Number: Effective Repository Date:2018-05-27 05/27/2018 GEORGE K Primary Insurance:MMO GEORGE Megan [place] [id number] MEDICARESaint Elizabeth EdgewoodDOB: Community [place] Number: [id number], [place] [id number] Repository [address]Jjn: (330) Date:5531-35-62UL [phone] () [address] [place] [address]XW: 05/27/2018 Secondary NOT GIVENUNK [place] Insurance:SELF PAY [facility] Number: Effective Repository Date:2018-05-21 05/21/2018 GEORGE K Primary Insurance:MMO GEORGE Megan [place] [id number] MEDICAREPolicy [facility] Community [place] Number: [id number], [place] [id number] Repository [address]Kfs: (330) Date:3342-47-08VB [phone] (HP) [address] [place] [address]WJ: 05/21/2018 Secondary NOT GIVENUNK [place] Insurance:SELF PAY [facility] Number: Effective Repository Date:2018-04-27 05/21/2018 GEORGE K Primary Insurance:MMO GEORGE Megan [place] [id number] MEDICARESaint Elizabeth EdgewoodDOB: [facility] [place] Number: [id number], [place] [id number] Repository [address]Lmn: (330) Date:0782-59-84ST [phone] (HP) [address], [place] [address]YQ: 05/21/2018 Secondary NOT GIVENUNK [place] Insurance:SELF PAY [facility] Number: Effective Repository Date:2018-05-21 04/22/2018 GEORGE K Primary Insurance:MMO GEORGE Megan [place] [id number] MEDICAREPolicy [place]OB: [facility] [place] Number: [id number], [place] [id number] Repository [address]Oga: (330) Date:9177-82-81KP [phone] (HP) [address] [place] [address]BJ: 04/22/2018 Secondary NOT GIVENUNK [place] Insurance:SELF PAY [facility] Number: Effective Repository Date:2018-03-25 04/16/2018 GEORGE K Primary Insurance:MMO GEORGE Megan [place] [id number] MEDICAREPolicy [place]OB: [facility] [place] Number: [id number], [place] [id number] Repository 10[address]Zvd: (330) Date:2178-83-61OK [phone] (HP) [address] [place] [address]HR: 04/16/2018 Secondary NOT GIVENUNK [place] Insurance:SELF PAY [facility] Number: Effective Repository Date:2018-04-01 03/16/2018 GEORGE K Primary Insurance:MMO GEORGE K [place] [id number] MEDICAREPolicy [place]: Community [place] Number: [id number], [place] [id number] Repository [address]Lhk: (330) Date:0485-22-87TD [phone] () [address], [place] [address]KV: 03/16/2018 Secondary NOT GIVENUNK [place] Insurance:SELF PAY [facility] Number: Effective Repository Date:2018-02-19 02/09/2018 GEORGE K Primary Insurance:MMO GEORGE K [place] [id number] MEDICARESaint Elizabeth [facility]woodDOB: [facility] [place] Number: [id number], [place] [id number] Repository [address]Wui: (330) Date:1566-69-88II [phone] () [address], [place] [address]BG: 02/09/2018 Secondary NOT GIVENUNK [place] Insurance:SELF PAY [facility] Number: Effective Repository Date:2018-01-21 02/01/2018 GEORGE K Primary Insurance:MMO GEORGE K [place] [id number] MEDICAREPolicy [place]OB: [facility] [place] Number: [id number], [place] [id number] Repository [address]Yyx: (330) Date:1391-78-62DJ [phone] () [address], [place] [address]FZ: 02/01/2018 Secondary NOT GIVENUNK [place] Insurance:SELF PAY [facility] Number: Effective Repository Date:2018-01-22 01/14/2018 GEORGE K Primary Insurance:MMO GEORGE K [place] [id number] MEDICAREPolicy [place]: [facility] [place] Number: [id number], [place] [id number] Repository [address]Dzt: (330) Date:9087-98-35RG [phone] (HP) [address], [place] [address]KV: 01/14/2018 Secondary NOT GIVENUNK [place] Insurance:SELF PAY [facility] Effective Repository Date:2017-12-22 01/14/2018 GEORGE K Primary Insurance:MMO GEORGE K [place] [id number] MEDICAREPolicy ARTESIADOB: Community [place] Number: [id number], [place] [id number] Repository 109[address]Rvq: (330) Date:8284-17-36XL [phone] (HP) [address], [place] [address]WG: 01/14/2018 Secondary NOT GIVENUNK [place] Insurance:SELF PAY [facility] Number: Effective Repository Date:2018-01-14 01/11/2018 GEORGE K Primary Insurance:MMO GEORGE Megan [place] [id number] MEDICARESaint Elizabeth [facility]woodDOB: [facility] [place] Number: [id number], [place] [id number] Repository [address]Dth: (330) Date:3660-52-78UE [phone] () [address] [place] [address]FD: 01/11/2018 Secondary NOT GIVENUNK [place] Insurance:SELF PAY [facility] Number: Effective Repository Date:2018-01-11 12/31/2017 GEORGE K Primary Insurance:MMO GEORGE K [place] [id number] MEDICAREB[facility] Anderson Cancer CentericFormerly [facility] HospitalD[facility]: [facility] [place] Number: [id number], [place] [id number] Repository [address]Jnw: (330) Date:9764-57-59TS [phone] () [address] [place] [address]AT: 12/31/2017 Secondary NOT GIVENUNK [place] Insurance:SELF PAY [facility] Number: Effective Repository Date:2017-12-22 12/21/2017 GEORGE K Primary Insurance:MMO GEORGE K [place] [id number] MEDICARESaint Elizabeth [facility]woodDOB: [facility] [place] Number: [id number], [place] [id number] Repository [address]Snd: (330) Date:2651-77-57YS [phone] () [address], [place] [address]KP: 12/21/2017 Secondary NOT GIVENUNK [place] Insurance:SELF PAY [facility] Number: Effective Repository Date:2017-12-21 12/21/2017 GEORGE K Primary Insurance:MMO GEORGE K [place] [id number] MEDICARESaint Elizabeth EdgewoodDOB: [facility] [place] Number: [id number], [place] [id number] Repository [address]Hdn: (330) Date:5012-87-92VX [phone] (HP) [address], [place] [address]TS: 12/21/2017 Secondary NOT GIVENUNK [place] Insurance:SELF PAY [facility] Number: Effective Repository Date:2017-11-23 12/11/2017 GEORGE K Primary Insurance:MMO GEORGE K [place] [id number] MEDICAREPolicy [place]: [facility] [place] Number: [id number], [place] [id number] Repository 275[address]Tan: (330) Date:6142-05-78DJ [phone] () [address], [place] [address]PS: 12/11/2017 Secondary NOT GIVENUNK [place] Insurance:SELF PAY [facility] Number: Effective Repository Date:2017-11-22 11/06/2017 GEORGE K Primary Insurance:MMO GEORGE K [place] [id number] MEDICAREPolicy [place]OB: [facility] [place] Number: [id number], [place] [id number] Repository [address]Fsh: (330) Date:0553-47-32KO [phone] (HP) [address], [place] [address]GD: 11/06/2017 Secondary NOT GIVENUNK [place] Insurance:SELF PAY [facility] Number: Effective Repository Date:2017-10-22 10/30/2017 GEORGE K Primary Insurance:MMO GEORGE K [place] [id number] MEDICAREBanner Md Anderson Cancer CentericFormerly [facility] HospitalD[facility]: Community [place] Number: [id number], [place] [id number] Repository [address]Pty: (330) Date:7140-81-53PS [phone] () [address], [place] [address]EW: 10/30/2017 Secondary NOT GIVENUNK [place] Insurance:SELF PAY [facility] Number: Effective Repository Date:2017-10-23 10/20/2017 GEORGE K Primary Insurance:MMO GEORGE K [place] [id number] MEDICARESaint Elizabeth EdgewoodD[facility]: [facility] SystemD[facility] Number: [id number], [place] [id number] Repository 435[address]Twl: (330) Date:2019-02-25CX [phone] () [address], [place] [address]FJ: 10/20/2017 Secondary NOT GIVENUNK [place] Insurance:SELF PAY [facility] Number: Effective Repository Date:2017-10-20 10/19/2017 GEORGE K Primary Insurance:MMO GEORGE K [place] [id number] MEDICAREPolicy [place]OB: [facility] [place] Number: [id number], [place] [id number] Repository 290[address]Elb: (330) Date:4108-59-24ZH [phone] () [address], [place] [address]QP: 10/19/2017 Secondary NOT GIVENUNK [place] Insurance:SELF PAY [facility] Number: Effective Repository Date:2017-10-19 10/06/2017 GEORGE K Primary Insurance:MMO GEORGE K [place] [id number] MEDICAREPolicy [place]: [facility] [place] Number: [id number], [place] [id number] Repository [address]Lil: (330) Date:2898-48-26RQ [phone] () [address], [place] [address]MC: 10/06/2017 Secondary NOT GIVENUNK [place] Insurance:SELF PAY [facility] Number: Effective Repository Date:2017-07-30 08/28/2017 George Guzman Primary Insurance:MMO George Guzman [place] [id number] MEDICAREPolicy [place]: [facility] Number: [id number], [place] [id number] Repository [address]Nhg: (330) Date:9357-67-28AS [phone] () [address], [place] [address]EK: 08/28/2017 Secondary NOT GIVENUNK [place] Insurance:SELF PAY [facility] Number: Effective Repository Date:2017-07-26
== END ==
PROVIDERS: Family Provider Family Medicine; PCP Family Medicine; Visit Provider Family Medicine
DX: I50.30 Unspecified diastolic (congestive) heart failure (principal)
CPT/HCPCS: 36415; 80048

== ENCOUNTER 2018-08-23 08:54 | Outpatient (RCR) | payer MEDICARE, SELFPAY ==
[2018-07-30 15:10] LABS: International Normalized Ratio 2.9; Prothrombin Time (Protime)PT. 30.5 SECONDS (11.7-14.9)
[2018-07-30 15:20] LABS: Anion Gap 8 (5-15); BUN 21 mg/dL (7-18); BUN/Creat Ratio 20.4 RATIO (10-20); Calcium,Total 8.4 mg/dL (8.5-10.1); Chloride 104 mmol/L (98-107); Creatinine, Serum 1.03 mg/dL (0.70-1.30); EST Glomerular Filtration Rate 74 mL/min (>60); Est Glom Filt Rate - Afr Amer 89 mL/min (>60); Glucose 104 mg/dL (74-106); Potassium 3.4 mmol/L (3.5-5.1); Sodium Level 142 mmol/L (136-145)
[2018-07-30 15:28] LABS: AST(SGOT) 32 U/L (15-37); Alanine Aminotransfer ALT/SGPT 29 U/L (16-61); Albumin, Serum 4.1 g/dL (3.2-5.0); Alkaline Phosphatase 92 U/L (45-117); Cholesterol 171 mg/dL (200); Globulin 3.4 g/dL (2.2-4.2); High Density Lipoprotein 49 mg/dL; Protein, Total 7.5 g/dL (6.4-8.2); Triglycerides 160 mg/dL; Very Low Density Lipoprotein 32 mg/dL (5-40)
[2018-08-23 09:10] LABS: Prothrombin Time Fingerstick 38.5 SEC (11.9-14.4)
== END 2018-08-23 09:00 | disposition home or self-care (01) ==
LOC: LAB 08:54
PROVIDERS: Family Provider Family Medicine; PCP Family Medicine; Referring Provider Internal Medicine Cardiovascular Disease; Visit Provider Internal Medicine Cardiovascular Disease
DX: I11.0 Hypertensive heart disease with heart failure (principal); I50.30 Unspecified diastolic (congestive) heart failure; I48.2 Chronic atrial fibrillation; E78.5 Hyperlipidemia, unspecified; Z79.01 Long term (current) use of anticoagulants
CPT/HCPCS: 36415; 36416; 80048; 80061; 80076; 83880; 85610

== ENCOUNTER 2018-09-21 05:37 | Outpatient (RCR) | payer MEDICARE, SELFPAY ==
[2018-05-21 13:07] VITALS: BMI 28.5
[2018-09-21 06:06] LABS: Prothrombin Time Fingerstick 36.8 SEC (11.9-14.4)
== END 2018-09-21 07:00 | disposition home or self-care (01) ==
LOC: LAB 05:37
PROVIDERS: Family Provider Family Medicine; PCP Family Medicine; Referring Provider Internal Medicine Cardiovascular Disease; Visit Provider Internal Medicine Cardiovascular Disease
DX: I48.2 Chronic atrial fibrillation (principal); Z79.01 Long term (current) use of anticoagulants
CPT/HCPCS: 36416; 85610

== ENCOUNTER 2018-10-18 10:52 | Outpatient (RCR) | payer MEDICARE, SELFPAY ==
[2018-05-21 13:07] VITALS: BMI 28.5
[2018-10-05 15:51] LABS: Prothrombin Time Fingerstick 17.7 SEC (11.9-14.4)
[2018-10-07 13:35] LABS: Prothrombin Time Fingerstick 25.3 SEC (11.9-14.4)
[2018-10-08 09:30] LABS: Prothrombin Time Fingerstick 24.5 SEC (11.9-14.4)
[2018-10-18 11:05] LABS: Prothrombin Time Fingerstick 34.5 SEC (11.9-14.4)
== END 2018-10-21 11:00 | disposition home or self-care (01) ==
LOC: LAB 10:52
PROVIDERS: Family Provider Family Medicine; PCP Family Medicine; Referring Provider Internal Medicine Cardiovascular Disease; Visit Provider Internal Medicine Cardiovascular Disease
DX: I48.2 Chronic atrial fibrillation (principal); Z79.01 Long term (current) use of anticoagulants
CPT/HCPCS: 36415; 36416; 85610

== ENCOUNTER 2018-11-22 14:28 | Outpatient (RCR) | payer MEDICARE, SELFPAY ==
[2018-10-14 14:49] VITALS: BMI 28.1
[2018-11-23 09:40] LABS: Prothrombin Time Fingerstick 28.7 SEC (11.9-14.4)
== END 2018-12-21 16:00 | disposition home or self-care (01) ==
LOC: LAB 14:28
PROVIDERS: Family Provider Family Medicine; PCP Family Medicine; Referring Provider Internal Medicine Cardiovascular Disease; Visit Provider Internal Medicine Cardiovascular Disease
DX: I48.2 Chronic atrial fibrillation (principal); Z79.01 Long term (current) use of anticoagulants
CPT/HCPCS: 36416; 85610

== ENCOUNTER 2018-12-31 08:45 | Outpatient (RCR) | payer MEDICARE, SELFPAY ==
[2018-10-14 14:49] VITALS: BMI 28.1
[2018-12-31 09:29] LABS: Erythrocyte Sedimentation Rate 20 mm/hr (0-20)
[2018-12-31 09:30] LABS: Hematocrit 37.6 % (40-54); Hemoglobin 12.3 g/dl (13.0-16.5); Mean Corp Hgb Conc 32.7 g/gl (32-36); Mean Corpuscular Hgb 30.1 pg (27.0-32.0); Mean Corpuscular Volume 91.9 fL (80-94); Mean Platelet Vol. 9.3 fl (6.2-12.0); Platelet Count 285 K/mm3 (150-450); RBC Distribution Width CV 13.7 % (11.6-14.6); RBC Distribution Width SD 45.4 fl (35.1-43.9); Red Blood Count 4.09 M/mm3 (4.6-6.2); White Blood Count 10.6 K/mm3 (4.4-11.0)
[2018-12-31 09:34] LABS: Scan Indicated on CBC? Y/N NO
[2018-12-31 09:34] LABS: International Normalized Ratio 2.6; Prothrombin Time (Protime)PT. 28.2 SECONDS (11.7-14.9)
[2018-12-31 09:58] LABS: Vitamin B12 401 pg/mL (211-911)
[2018-12-31 10:13] LABS: ALB/GLOB Ratio 1.2 RATIO (0.9-2.4); AST(SGOT) 27 U/L (15-37); Alanine Aminotransfer ALT/SGPT 25 U/L (16-61); Albumin, Serum 4.1 g/dL (3.2-5.0); Alkaline Phosphatase 93 U/L (45-117); Anion Gap 9 (5-15); BUN 16 mg/dL (7-18); BUN/Creat Ratio 15.1 RATIO (10-20); Calcium,Total 8.4 mg/dL (8.5-10.1); Chloride 109 mmol/L (98-107); Cholesterol 114 mg/dL (200); Creatinine, Serum 1.06 mg/dL (0.70-1.30); EST Glomerular Filtration Rate 71 mL/min (>60); Est Glom Filt Rate - Afr Amer 86 mL/min (>60); Globulin 3.3 g/dL (2.2-4.2); Glucose 120 mg/dL (74-106); High Density Lipoprotein 42 mg/dL; Potassium 3.7 mmol/L (3.5-5.1); Protein, Total 7.4 g/dL (6.4-8.2); Sodium Level 144 mmol/L (136-145); Thyroid Stim Hormone (TSH) 1.51 uIU/mL (0.358-3.74); Triglycerides 95 mg/dL; Very Low Density Lipoprotein 19 mg/dL (5-40)
== END 2018-12-31 10:00 | disposition home or self-care (01) ==
LOC: LAB 08:45
PROVIDERS: Family Provider Family Medicine; PCP Family Medicine; Referring Provider Internal Medicine Cardiovascular Disease; Visit Provider Internal Medicine Cardiovascular Disease
DX: I48.2 Chronic atrial fibrillation (principal); E78.5 Hyperlipidemia, unspecified; F32.9 Major depressive disorder, single episode, unspecified; R41.3 Other amnesia; I10 Essential (primary) hypertension; E55.9 Vitamin D deficiency, unspecified; Z79.01 Long term (current) use of anticoagulants
CPT/HCPCS: 36415; 80053; 80061; 82306; 82607; 84443; 85027; 85610; 85652

== ENCOUNTER 2019-01-22 10:42 | Outpatient (RCR) | payer MEDICARE, SELFPAY ==
[2018-10-14 14:49] VITALS: BMI 28.1
[2019-01-22 10:56] LABS: Prothrombin Time Fingerstick 23.5 SEC (11.9-14.4)
== END 2019-02-20 12:00 | disposition home or self-care (01) ==
LOC: LAB 10:42
PROVIDERS: Family Provider Family Medicine; PCP Family Medicine; Referring Provider Internal Medicine Cardiovascular Disease; Visit Provider Internal Medicine Cardiovascular Disease
DX: R41.3 Other amnesia (principal); I48.2 Chronic atrial fibrillation; Z79.01 Long term (current) use of anticoagulants
CPT/HCPCS: 36416; 70450; 85610

== ENCOUNTER → 2019-01-22 | Outpatient (CLI) | payer MEDICARE, SELFPAY ==
[2018-10-14 14:49] VITALS: BMI 28.1
--- NOTE | 2019-01-22 10:29 | CT_ITS ---
STUDY: CT BRAIN WITHOUT CONTRAST REASON FOR EXAM: Male, 83 years old. Memory loss RADIATION DOSAGE (If Supplied By Facility): CTDIvol = ( 44.99 ) mGy, DLP = ( 745.49 ) mGycm TECHNIQUE: Transaxial CT imaging of the brain was performed without administration of intravenous contrast material. Individualized dose optimization techniques were used for this CT. COMPARISON: No relevant priors. FINDINGS: Normal soft tissue structures. Normal calvarium. Prominent size ventricles and extra-axial spaces with atrophy. Bilateral white matter microangiopathic ischemic changes of the cerebral hemispheres. Probable old lacunar infarct in the right basal ganglia. Probable old lacunar infarct in the left thalamus. Normal brainstem. Normal cerebellum. There is no intracranial hemorrhage. There are no findings of an acute ischemic infarction. Normal visualized paranasal sinuses. CT/Brain/Head without Contrast IMPRESSION: Age-related and chronic changes of the brain. Electronically Signed: Jason Alcantara DO at 10:57 EDT Tel [phone], Service support ,
== END | disposition home or self-care (01) ==
LOC: CT 10:26
PROVIDERS: Family Provider Family Medicine; PCP Family Medicine; Referring Provider Family Medicine; Visit Provider Family Medicine
DX: R41.3 Other amnesia (principal)
CPT/HCPCS: 70450

== ENCOUNTER 2019-02-08 13:53 | Inpatient (IN) | payer MEDICARE, SELFPAY ==
[2018-10-14 14:49] VITALS: BMI 28.1
[2019-02-08] VITALS (9 sets, daily range): BP systolic 85–119; BP diastolic 46–73; PULSE 61–93; RESP 16–20; TEMP 36.2–36.7; O2SAT 95–98; BMI 28.0; BMI 28.1; BMI 27.8
--- NOTE | 2019-02-08 14:10 | EKG12_ITS ---
Test Reason : SOB Blood Pressure : / mmHG Vent. Rate : 082 BPM Atrial Rate : 326 BPM P-R Int : 000 ms QRS Dur : 076 ms QT Int : 416 ms P-R-T Axes : 000 -34 007 degrees QTc Int : 486 ms Atrial fibrillation Left axis deviation Prolonged QT Abnormal ECG Confirmed by RYAN LOUIS ([id number]), photography editor KAITLYN SMALLS ([id number]) on 02/14/2019 10:23:18 AM Referred By: Sharyn Montalvo Confirmed By:RYAN LOUIS
--- NOTE | 2019-02-08 14:10 | CT_ITS ---
STUDY: CT BRAIN WITHOUT CONTRAST REASON FOR EXAM: Male, 83 years old. Fatigue. Multiple falls. Patient is on Coumadin. RADIATION DOSAGE (If Supplied By Facility): CTDIvol = ( 44.99 ) mGy, DLP = ( 762.36 ) mGycm TECHNIQUE: Transaxial CT imaging of the brain was performed without administration of intravenous contrast material. Individualized dose optimization techniques were used for this CT. COMPARISON: Comparison is made with prior study dated January 22, 2019. FINDINGS: Normal soft tissue structures. Normal calvarium. There is mild cerebral atrophy with widening of the extra-axial spaces and ventricular dilatation. There are areas of decreased attenuation within the white matter tracts of the supratentorial brain, consistent with microvascular disease changes. 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 Normal brainstem. Normal cerebellum. There is no intracranial hemorrhage. There are no findings of an acute ischemic infarction. Atherosclerotic calcification of the vertebral arteries and cavernous portions of the internal carotid arteries bilaterally. Normal visualized paranasal sinuses. CT/Brain/Head without Contrast IMPRESSION: Chronic involutional changes of the brain. Electronically Signed: Skyler Dhaliwal, at 14:59 EDT , Service support ,
--- NOTE | 2019-02-08 14:10 | RAD_ITS ---
STUDY: X-RAY CHEST REASON FOR EXAM: Male, 83 years old. Shortness of breath. Fall. TECHNIQUE: Single AP portable view of the chest. COMPARISON: Comparison is made with prior study dated July 13, 2014. FINDINGS: EKG electrodes are seen. Mild increased markings at the left lung base suggestive scarring. There is no demonstrated pleural abnormality. Sternal cerclage wires and vascular clips are present from a prior sternotomy and coronary artery bypass graft procedure (CABG). Normal mediastinum and wendy. Normal visualized pulmonary arteries. There is atherosclerotic calcification of the aortic arch with tortuosity. Normal visualized thoracic spine. Normal visualized ribs, clavicles, and shoulders. There is no demonstrated abnormality of the visualized soft tissue structures of the upper abdomen. RAD/Chest 1 View (Portable) IMPRESSION: Mild increased markings at the left lung base suggestive of scarring. Electronically Signed: Skyler Dhaliwal, at 14:41 EDT , Service support ,
[2019-02-08 14:40] LABS: Absolute Lymphocyte Count 1.49 X10^3/ul (0.83-4.51); Absolute Neutrophil Count 18.9 X10^3/uL (2.0-7.7); Basophil# 0.04 X10^3/uL; Basophil% 0.2 % (0-1); Eosinophil# 0.09 X10^3/uL; Eosinophils% 0.4 % (0-5); Hematocrit 29.6 % (40-54); Hemoglobin 9.9 g/dl (13.0-16.5); Lymphocyte # 1.49 X10^3/ul (4.0); Lymphocyte % 6.7 % (19-41); Mean Corp Hgb Conc 33.4 g/gl (32-36); Mean Corpuscular Volume 92.8 fL (80-94); Mean Platelet Vol. 8.8 fl (6.2-12.0); Monocyte# 1.61 X10^3/uL; Monocyte% 7.2 % (0-10); Neutrophil # 18.86 X10^3/uL (2.7-7.7); Neutrophil % 84.8 % (47-70); Platelet Count 262 K/mm3 (150-450); RBC Distribution Width CV 14.5 % (11.6-14.6); RBC Distribution Width SD 49.4 fl (35.1-43.9); Red Blood Count 3.19 M/mm3 (4.6-6.2); White Blood Count 22.2 K/mm3 (4.4-11.0)
[2019-02-08 14:43] LABS: Differential Indicated SCAN CRITERIA MET; POSITIVE COUNT NO; POSITIVE DIFFERENTIAL YES; POSITIVE MORPHOLOGY NO
[2019-02-08] MEDS: 0.9% Normal Saline 1,000 ML 150 ML IV (14:44)
[2019-02-08 14:56] LABS: Anion Gap 10 (5-15); BUN 29 mg/dL (7-18); BUN/Creat Ratio 18.8 RATIO (10-20); Calcium,Total 8.4 mg/dL (8.5-10.1); Chloride 102 mmol/L (98-107); Creatinine, Serum 1.54 mg/dL (0.70-1.30); EST Glomerular Filtration Rate 46 mL/min (>60); Est Glom Filt Rate - Afr Amer 56 mL/min (>60); Glucose 209 mg/dL (74-106); Potassium 3.5 mmol/L (3.5-5.1); Sodium Level 142 mmol/L (136-145)
[2019-02-08 14:59] LABS: BNP,B-Type NATRIURETIC PEPTIDE 89.6 pg/mL (0-100)
[2019-02-08 15:03] LABS: International Normalized Ratio 3.8; Prothrombin Time (Protime)PT. 37.6 SECONDS (11.7-14.9)
--- NOTE | 2019-02-08 15:08 | ED.RN ---
INR 3.[address] LO.
--- NOTE | 2019-02-08 15:21 | HP.PCM_ITS ---
Problem List (1) GI bleed Status: Suspected Qualifiers: GI bleed type/associated pathology: unspecified gastrointestinal hemorrhage type Qualified Code(s): K92.2 - Gastrointestinal hemorrhage, unspecified (2) Acute blood loss anemia Status: Acute (3) Pneumonia Status: Suspected Qualifiers: Pneumonia type: due to unspecified organism Laterality: left Lung location: lower lobe of lung Qualified Code(s): J18.1 - Lobar pneumonia, unspecified organism (4) Essential (primary) hypertension Status: Chronic (5) Secondary pulmonary arterial hypertension Status: Chronic (6) H/O coronary artery bypass surgery Status: Resolved Comment: CABG x 2 SVG-D1 and SVG-OM w/ AVR using a [address] [employer] Mechanical Prosthesis 04/30/2001 (7) Hyperlipidemia Status: Chronic Qualifiers: Hyperlipidemia type: pure hypercholesterolemia Qualified Code(s): E78.00 - Pure hypercholesterolemia, unspecified; E78.0 - Pure hypercholesterolemia (8) 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 transplanted heart: unspecified whether jamul or transplanted heart Qualified Code(s): I25.10 - Atherosclerotic heart disease of jamul coronary artery without angina pectoris Comment: CABG x 2 SVG-D1 and SVG-OM w/ AVR using a [address] [employer] Mechanical Pros thesis 04/30/2001 (9) H/O aortic valve replacement Status: Chronic Comment: AVR using a [address] [employer] Mechanical Prosthesis (10) Aortic valve stenosis, rheumatic Status: Chronic (11) History of radiofrequency ablation procedure for cardiac arrhythmia Status: Chronic (12) Chronic atrial fibrillation Status: Chronic (13) Chronic diastolic heart failure Status: Chronic History of Present Illness Date of Admission: 02/08/19 Chief Complaint: Dyspnea, fatigue, malaise. The patient is a 83 y/o M w/ PMHx: Chronic AF on coumadin, HTN, HLD, Valvular Heart Disease s/p AVR [employer] Mechanical Valve 2000 on coumadin following w/ Dr. Mojica, Chronic Diastolic CHF, CAD s/p CABG x 2 who presents to the [facility] ED on 02/08/19 with history of dyspnea starting a.m. of ED presentation upon awakening, much worsened with any activity with fatigue, malaise and noted ongoing mild cough but nonproductive and is been chronic with no fever or chills associated but upon further discussions does state that he had black stools earlier in the day and did have recent increase of his Coumadin secondary to subtherapeutic INR prior. He denies any lightheadedness or dizziness, nausea, emesis, abdominal cramping or pain. He does note that he had fallen the day prior while playing tennis, slipped and hit his head but denies any further discomfort from his fall. Work-up in the ED included T 98.1, heart rate 88, initial BP 85/46 with improvement to 114/67 following IV fluid hydration, respiratory rate initially 20, 97% on room air, CBC with W BC 22.2, hemoglobin 9.9 which was decreased from 12.3 approximately 1 month prior, platelet 262 with left shift, INR 3.8, BMP with BUN/creatinine 29/1.54, glucose 2 9, lactic acid 1.6, troponin less than 0.015, EKG with chronic atrial fibrillation with no acute evidence of ischemia, BNP 89.6, CT brain with no acute intercranial findings, chest x-ray with mild increased markings at the left lung base suggestive of scarring. In the ED patient administered normal saline, Rocephin as well as azithromycin. Discussed patient presentation with ED physician and more notable concern for possible GI bleed especially with hypotension, decreased hemoglobin with increased INR with recently changed regimen as well as now noted black stools, stool guaiac requested and pending upon evaluation of patient. 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) Hyperlipidemia (Chronic) Atherosclerotic heart disease of jamul coronary artery without angina pectoris (Chronic) CABG x 2 SVG-D1 and SVG-OM w/ AVR using a [address] [employer] Mechanical Prosthesis 04/30/2001 H/O aortic valve replacement (Chronic 04/30/01) AVR using a [address] [employer] Mechanical Prosthesis [facility] use of drug (Chronic) Anticoagulants Aortic valve stenosis, rheumatic (Chronic) History of radiofrequency ablation procedure for cardiac arrhythmia (Chronic) Chronic atrial fibrillation (Chronic) Chronic diastolic heart failure (Chronic) Medical History: Medical History (Last Reviewed 10/14/18 @ 15:11 by Albert Mojica MD) Essential (primary) hypertension (Chronic) I10 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 (Chronic) I25.119 Secondary pulmonary arterial hypertension (Chronic) I27.21 Non-rheumatic tricuspid valve insufficiency (Chronic) I36.1 Nonrheumatic mitral (valve) insufficiency (Chronic) 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) Z79.01 Hyperlipidemia (Chronic) E78.5 Atherosclerotic heart disease of jamul coronary artery without angina pectoris (Chronic) I25.10 CABG x 2 SVG-D1 and SVG-OM w/ AVR using a [address] [employer] Mechanical Prosthesis 04/30/2001 [facility] use of drug (Chronic) Z79.899 Anticoagulants Aortic valve stenosis, rheumatic (Chronic) I06.0 Chronic atrial fibrillation (Chronic) I48.2 Chronic diastolic heart failure (Chronic) I50.32 Obstructive sleep apnea G47.33 Shortness of breath R06.02 Hypokalemia (Inactive) E87.6 Localized edema (Inactive) R60.0 Allergies No Known Allergies Allergy (Verified 02/08/19 13:57) Home Medications: Ambulatory Orders Medication Instructions Recorded Aspirin E.C. [Ecotrin] 81 mg PO QHS 01/12/14 magnesium oxide 400 mg (241.3 mg 400 mg PO BREAKFAST tab 10/01/17 magnesium) tablet vit A 7,160 unit-vit C 113 mg-vit 1 tab PO DAILY 04/16/18 E 100 xxlo-otma-chnign tablet furosemide 40 mg tablet 40 mg PO BID #180 tab 08/16/18 potassium chloride ER 20 mEq 20 meq PO DAILY #90 tab 10/18/18 tablet,extended release warfarin 4 mg tablet 4 mg PO QHS #90 tab 02/04/19 Amlodipine Besylate [Norvasc] 10 mg PO DAILY 02/08/19 Escitalopram Oxalate 10 mg PO DAILY 02/08/19 Hydrochlorothiazide [Hctz] 25 mg PO DAILY 02/08/19 Losartan Potassium 100 mg PO DAILY 02/08/19 Multivitamins,Therapeutic 1 tab PO DAILY 02/08/19 [Multivitamin] Pravastatin [Pravachol] 80 mg PO QHS 02/08/19 Surgical History: Surgical History (Last Reviewed 10/14/18 @ 15:11 by Albert Mojica MD) H/O coronary artery bypass surgery (Resolved) Onset Date: 04/30/01 Z95.1 CABG x 2 SVG-D1 and SVG-OM w/ AVR using a [address] [employer] Mechanical Prosthesis 04/30/2001 H/O aortic valve replacement (Chronic) Onset Date: 04/30/01 Z95.2 AVR using a [address] [employer] Mechanical Prosthesis History of radiofrequency ablation procedure for cardiac arrhythmia (Chronic) Z98.890 Surgical History: - - Tonsillectomy, CABG x2, AVR with mechanical valve, cholecystectomy, cardiac ablation, dental surgery. Psychiatric History: Anxiety, Depression Lives: Spouse/ Significant Other Smoking Status: Former smoker - Patient quit cigarette tobacco usage approximately 25 to 30 years prior. Tobacco Use: Non-smoker Alcohol: Occasional - Patient drinks [place] 1 glass of wine per night. Drugs: None - *Family History Maternal Family History: Family History (Last Reviewed 10/14/18 @ 15:11 by Albert Mojica MD) Father No problems noted. Mother Diabetes History Items: Cancer, Diabetes Paternal Family History: Family History (Last Reviewed 10/14/18 @ 15:11 by Albert Mojica MD) Father No problems noted. Mother Diabetes History Items: - - Patient notes a paternal family history of heart disease. Review of Systems Constitutional: Reports: Malaise, Weakness, Fatigue. Denies: Chills, Fever, Weight Change HEENT: Denies: Head Aches, Sinus Congestion, Sinus Drainage Cardiovascular: Denies: Chest Pain, Chest Pressure, Chest Tightness, Heaviness, Light Headedness, Orthopnea, Palpitations, Syncope Respiratory: Reports: Cough, Shortness of Breath, Shortness of breath at rest, Shortness of breath upon exertion. Denies: Sputum production, Wheezing Gastrointestinal: Reports: Melena - Dark black appearing stool.. Denies: Abdominal Pain, Nausea, Vomiting Genitourinary: Denies: Dysuria Musculoskeletal: Reports: Joint Pain. Denies: Joint Tenderness Skin: Denies: Rash, Wounds Neurological: Denies: Numbness, Tingling, Focal weakness Psychiatric: Reports: Anxiety, Depression. Denies: Homicidal Ideations, Suicidal Ideations Hematologic/ Lymphatic: Reports: Anemia, Easy Bruising, Easy Bleeding VTE Information - Inpt Only VTE Present on Admission: No VTE Mechan Device Prophylaxis: SCD's VTE Pharm Prophylaxis ordered?: No Reason prophylaxis not ordered:: Medical Contraindication Patient Problems: Active and Suspected Problems (Last Reviewed 10/14/18 @ 15:11 by Albert Mojica MD) GI bleed (Suspected) Acute blood loss anemia (Acute) Pneumonia (Suspected) Subjective: Seated upright in ED bed, fatigued appearance, no acute distress, denies any current market dyspnea at this time but not exerting himself. Objective: Physical Examination: General: awake, alert, oriented x 3 and cooperative, seated upright in the ED bed, fatigued appearing. Skin: normal color, turgor, no icterus, cyanosis. HEENT: AT/NC, EOMI, PERRLA, mildly dry MM, no carotid bruits or JVD noted. Lungs: CTA bilaterally, moderate effort, moderately reduced bilateral bases, left greater than right, no rales, ronchi or wheezing. Heart: Regular; no gallop, rub audible, SM s/p AVR. Abdomen: soft, NTTP, ND, mildly hyperactive BS, no HSM. Extremities: no cyanosis, clubbing, or edema. Neurological: patient awake, alert, oriented x 3; cognitive function intact; pupils equally reactive to light and accomodation; cranial nerves II-XII grossly normal, moving all 4 extremities, no focal deficits, strength moderately to severely global decrease secondary to acute presentation. Psychiatric: affect appears mildly fatigued, no acute evidence of depressive or anxiety feelings. - Physical Exam Vital Signs Temp Pulse Resp BP Pulse Ox 98.1 F 70 16 119/54 L 95 02/08/19 13:55 02/08/19 14:32 02/08/19 14:32 02/08/19 14:32 02/08/19 14:32 Oxygen Delivery Method Room Air Weight: 184 lb 8.43 oz Body Mass Index (BMI) 28.0 Laboratory Tests Past 24 Hrs 02/08/19 02/08/19 02/08/19 14:27 14:27 14:27 WBC 22.2 H RBC 3.19 L Hgb 9.9 L Hct 29.6 L MCV 92.8 MCH 31.0 MCHC 33.4 RDW 14.5 RDW Differential 49.4 H Plt Count 262 MPV 8.8 Immature Gran % (Auto) 0.700 Neut % (Auto) 84.8 H Lymph % (Auto) 6.7 L Coles % (Auto) 7.2 Eos % (Auto) 0.4 Baso % (Auto) 0.2 Absolute Neuts (auto) 18.9 H Absolute Lymphs (auto) 1.49 Total Counted Pending PT 37.6 H INR 3.8 H* Sodium 142 Potassium 3.5 Chloride 102 Carbon Dioxide 30.0 Anion Gap 10 BUN 29 H Creatinine 1.54 H Estim Creat Clear Calc 36.40 Est GFR (MDRD) Af Amer 56 L Est GFR (MDRD) Non-Af 46 L BUN/Creatinine Ratio 18.8 Glucose 209 H Calcium 8.4 L Troponin I < 0.015 B-Natriuretic Peptide 02/08/19 14:27 WBC RBC Hgb Hct MCV MCH MCHC RDW RDW Differential Plt Count MPV Immature Gran % (Auto) Neut % (Auto) Lymph % (Auto) Coles % (Auto) Eos % (Auto) Baso % (Auto) Absolute Neuts (auto) Absolute Lymphs (auto) Total Counted PT INR Sodium Potassium Chloride Carbon Dioxide Anion Gap BUN Creatinine Estim Creat Clear Calc Est GFR (MDRD) Af Amer Est GFR (MDRD) Non-Af BUN/Creatinine Ratio Glucose Calcium Troponin I B-Natriuretic Peptide 89.6 Assessment/Plan All Active Problems (Last Reviewed 10/14/18 @ 15:11 by Albert Mojica MD) Acute blood loss anemia (Acute) H/O coronary artery bypass surgery (Resolved 04/30/01) Hematoma of left lower extremity (Resolved) Hematoma of lower limb (Resolved) Nonhealing ulcer of left lower leg (Resolved) Ulcer of right lower extremity with fat layer exposed (Resolved) The patient is a 83 y/o M w/ PMHx: Chronic AF on coumadin, HTN, HLD, Valvular Heart Disease s/p AVR [employer] Mechanical Valve 2000 on coumadin following w/ Dr. Mojica, Chronic Diastolic CHF, CAD s/p CABG x 2 who presents to the [facility] ED on 02/08/19 with history of dyspnea starting a.m. of ED presentation upon awakening, much worsened with any activity with fatigue, malaise and noted ongoing mild cough but nonproductive and is been chronic with no fever or chills associated but upon further discussions does state that he had black stools earlier in the day and did have recent increase of his Coumadin secondary to subtherapeutic INR prior. (1) Acute GI Bleed w/ resultant Acute Blood Loss Anemia: Patient admission Hgb 9.9, decreased from 12.3 ~ 1 month prior, dark black stool noted on day of presentation, will admit to PCU, maintain on IVFs, admission INR 3.8 with ankle valve which complicates presentation with requested evaluation per Dr. Pleitez and if amenable would plan hold on Coumadin therapy and possible reversal with transition to heparin drip pending endoscopies, obtain serial H+H q 4 hours, obtain T+S w/ cross for PRBC administration if appropriate, maintain on IV PPI. Stool guaiac has been requested upon admission and pending. If this is positive given history and concern for GI bleed may necessitate also involving cardiology, Dr. Mojica. (2) Leukocytosis, with questionable possible CAP, low suspicion: Work-up in the ED included T 98.1, heart rate 88, initial BP 85/46 with improvement to 114/67 following IV fluid hydration, respiratory rate initially 20, 97% on room air, CBC with WBC 22.2, hemoglobin 9.9, platelet 262 with left shift, chest x-ray with mild increased markings at the left lung base suggestive of scarring. Will maintain on oxygen with wean as tolerated to room air, continue PRN albuterol, maintain on IV Rocephin and Azithromycin, HOB, IS parameters w/ pending sputum cultures, respiratory viral panel and urine antigens. Will repeat chest x-ray in a.m., as noted low suspicion for pneumonia, suspect dyspnea presentation likely secondary to GI bleed as noted #1 and if unremarkable would de-escalate off antibiotic therapy. (3) Acute kidney injury: Secondary to acute presentation, #1, possibly #2. Admission BUN/Cr 29/1.54, prior baseline creatinine noted to be 1.0-1.1. Will hydrate, hold nephrotoxic medications and repeat chemistry in AM. If no improvement would plan FeNa and renal US assessment. (4) CAD: s/p CABG x 2 SVG-D1 and SVG-OM w/ AVR using a [address] [employer] Mechanical Prosthesis 04/30/2001, holding aspirin and Coumadin as noted, not on beta-pradeep therapy, will continue statin therapy, holding losartan given acute kidney injury. (5) Chronic diastolic CHF: Holding aspirin, Coumadin therapy as noted, holding nephrotoxic regimen, continued on Norvasc only, statin continued. (6) Hypertension: Continue home regimen including Norvasc, holding patient home hydrochlorothiazide, Lasix, losartan secondary to acute kidney injury, will maintain strict blood pressure parameters given hypotensive presentation although improved with IV fluids, PRN hydralazine. (7) Hyperlipidemia: Continue home statin regimen. (8) Valvular heart disease: s/p AVR using a [address] [employer] Mechanical Prosthesis 04/30/2001, 05/27/18 ECHO w/ normal LV size, EF 60%, moderately enlarged LA, moderately enlarged RA, mild to moderate TVI, pulmonary artery systolic pressure 44 mmHg, mean aortic valve gradient 17 mmHg, stable appearing mechanical aortic valve apparatus. (9) Chronic atrial fibrillation: Not on rate or rhythm agent per review of regimen, holding Coumadin given acute presentation. (10) Anxiety and depression: Continue home escitalopram regimen. (11) DVT prophylaxis: SCDs, defer chemoprophylaxis secondary to acute presentation, #1. (12) CODE status: Patient present and his healthcare power of bankruptcy attorney with living will in place. Discussed CODE status at length including difference between FULL code, DNR-CCA and DNR-CC status. Following discussions about the differences in these status, requested Full code status. Advanced Care Planning Face to Face Time: 16 minutes. Code Visit Inpatient E&M: 29711 Init Hosp L3 Procedures: 22250 Advncd Care Plan 30 Min
--- NOTE | 2019-02-08 15:31 | NURSING ---
PCU ? PNA, p GI BLEED,ANEMIA WHITE
--- NOTE | 2019-02-08 15:36 | ED.VISSUMM ---
- ER Visit Summary Date of Service: 02/08/19 Chief Complaint: [Shortness of breath] History of Present Illness: The patient is a 83 M [resents to the emergency department shortness of breath that started around 9 AM. Patient states that yesterday he was playing tennis and fell and hit his leg and his head on the post holding the net up. No loss of consciousness. Patient is currently on Coumadin. This morning he woke up and just felt short of breath with minimal activity which is unusual for him. Patient had to stop multiple times while walking through the house to try to catch his breath. Patient had minimal cough although he states at night has been coughing for several months. He denies any fever. He denies any blood in his stool other than he felt like maybe his stool was black this morning x1. Patient had an INR checked about 3 weeks ago and it was a little bit on the low side so they increased his dosage and he is to have a repeat done this week. Patient denies any chest pain.] Patient has a history of atrial fibrillation as well as hypertension and high cholesterol. Patient has had an aortic valve replacement and has a [place] valve. Physical Examination: [HEENT-PERRLA, EOMI. Cranial nerves II through XII grossly intact. TMs clear. Mucous membranes moist. No adenopathy. He has some faint ecchymosis and bruising noted to the right side of the forehead above the right eyebrow. Cardiovascular-irregular with a 2 out of 6 systolic ejection murmur. Lungs-clear to auscultation, chest wall stable without crepitus or subcu emphysema Abdomen-normoactive bowel sounds, soft, nontender, no rebound or rigidity, no peritoneal signs. Rectal exam-no masses palpated, no fissures noted, brown stool Extremities-intact ?4, normal range of motion, normal pulses. Patient has superficial abrasions to bilateral knees.] Test Results: [EKG obtained on arrival showed atrial fibrillation with a ventricular rate of 82 bpm with prolonged QT. CBC with additional white count of 22,000, hemoglobin 9.9, hematocrit 30, placed 262. Chemistries unremarkable. BUN was 29 and creatinine 1.54. Troponin is less than 0.015. BNP was 89. Chest x-ray showed some scarring of the left lung base. CT scan of the brain showed chronic involutional changes otherwise nothing acute. Emergency Department Course and Treatment: [Patient had blood cultures ordered and was started empirically on Rocephin and Zithromax. Patient was ordered a liter normal same fluid bolus. Hemoccult ordered and pending.] Treatment Plan: [Admit for further work-up and evaluation of his exertional dyspnea. Etiology of his leukocytosis is unclear. Patient also has dropped from hemoglobin of twelve 1 month ago down to 9.9. Patient also with Coumadin coagulopathy.] Disposition: [Admit] Impression: [Exertional dyspnea Leukocytosis Coumadin coagulopathy Anemia] This note was generated with [employer] dictation software. It may contain incorrect words, spelling, and punctuation that were not noted in review of the chart prior to signing ED Disposition - Plan for ED Patient: Referrals: Fernando Cortez MD [Primary Care Provider] -
[2019-02-08 15:42] LABS: Platelet Estimate ADEQUATE (ADEQ); Red Cell Morphology NORM C+C NORMAL (NORM C&C)
[2019-02-08] MEDS: Ceftriaxone 1 GM/50 ML BAG IV (15:45)
[2019-02-08 16:16] LABS: Lactic Acid 1.6 mmol/L (0.4-2.0)
[2019-02-08] MEDS: 0.9% Normal Saline 1,000 ML 100 ML IV (16:53)
[2019-02-08 16:59] LABS: Iron 87 ug/dL (65-175); Iron Binding Capacity,Total 330 ug/dL (250-450); PERCENT IRON SATURATION 26.4 % (15.0-55.0)
[2019-02-08 17:36] LABS: Bacteria 0 SEEN /hpf (None Seen); Mucous, Urine 0 SEEN /hpf (<or=2+); Red Blood Cells-Urine 0 SEEN /hpf (0-5); White Blood Cells 0 SEEN /hpf (0-5)
[2019-02-08 17:57] LABS: Color, Urine Yellow (Yellow); Glucose, Dipstick Normal (Normal); Ketone-Dipstick Negative (Negative); Leukocyte Esterase-Dipstick Negative /ul (Negative); Nitrite-Dipstick Negative (Negative); Occult Blood-Urine Negative /ul (Negative); Protein-Dipstick Negative (Negative); Urine Bilirubin Dipstick Negative (Negative); Urine Clarity Clear (Clear); Urine Urobilinogen Normal (Normal)
[2019-02-08 18:31] LABS: Hematocrit 25.3 % (40-54); Hemoglobin 8.6 g/dl (13.0-16.5)
[2019-02-08 18:51] LABS: Squamous Epithelial Cells - UA 0-5 SEEN /hpf (0-5)
--- NOTE | 2019-02-08 19:34 | CON.PCM_ITS ---
Reason for Consult Date of Consultation: 02/08/19 Reason for Consultation: anemia, shortness of breath History of Present Illness: The patient is a 83 year old M was admitted with complaint of shortness of breath. the patient has significant past medical history of chronic atrial fib rillation on Coumadin, valvular heart disease with a mechanical aortic valve replaced in 2000 which is been on chronic Coumadin treatment, coronary artery bypass grafting, hypertension, hyperlipidemia. The patient was playing tennis 2 days previously when he tripped going to the net and hit his head on the post-by the edge of the net. He denied loss of consciousness or other difficulties at that time. The patient and then slipped on wet grass and fell while walking his dog. He noted discomfort in his right thigh following that event but also noticed an episode of black stools the day before and then a degree of shortness of breath which was unusual for him. He states he normally is not short of breath and is normally quite active. He presented to [facility] with these complaints. His white blood cell count was noted to be elevated at 22,000. Hemoglobin was 9.9 which is decreased from 12.3 one month previously. His INR is elevated at 3.8. Due to cranial trauma he had a CT scan of the brain which demonstrated no true intracranial findings. He had a AP portable chest x-ray obtained which demonstrated questionable haziness in the left lower lobe. His initial blood pressure was low but following IV fluid hydration increased 114/67. due to the possibility of basilar pneumonia, the patient was started on Rocephin and azithromycin. I was contacted by Dr. Montalvo. Given the fact that the patient has a mechanical heart valve and needs to be maintained on anticoagulation, she feels this is urgent to obtain upper and lower endoscopy to assure there is not a significant contraindication or GI bleeding source such as ulcer or other abnormalities the patient had previous colonoscopy for blood per rectum performed by Dr. Crane in 2010. 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 tricuspid valve insufficiency (Chronic) Nonrheumatic mitral (valve) insufficiency (Chronic) penitentiary current use of anticoagulant (Chronic) Hyperlipidemia (Chronic) Atherosclerotic heart disease of [place] coronary artery without angina pectoris (Chronic) CABG x 2 SVG-D1 and SVG-OM w/ AVR using a [address] [place] [employer] Mechanical Prosthesis 04/30/2001 H/O aortic valve replacement (Chronic 04/30/01) AVR using a [address] [employer] 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) Anticoagulants Aortic valve stenosis, rheumatic (Chronic) History of radiofrequency ablation procedure for cardiac arrhythmia (Chronic) Chronic atrial fibrillation (Chronic) Chronic diastolic heart failure (Chronic) Medical History: Medical History (Last Reviewed 10/14/18 @ 15:11 by Albert Mojica MD) Essential (primary) hypertension (Chronic) I10 Atherosclerosis of coronary artery of [place] heart with angina pectoris (Chronic) I25.119 Secondary pulmonary arterial hypertension (Chronic) I27.21 Non-rheumatic tricuspid valve insufficiency (Chronic) I36.1 Nonrheumatic mitral (valve) insufficiency (Chronic) I34.0 penitentiary current use of anticoagulant (Chronic) Z79.01 Hyperlipidemia (Chronic) E78.5 Atherosclerotic heart disease of [place] coronary artery without angina pectoris (Chronic) I25.10 CABG x 2 SVG-D1 and SVG-OM w/ AVR using a [address] [employer] 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 [Ecotrin] 81 mg PO QHS 01/12/14 magnesium oxide 400 mg (241.3 mg 400 mg PO BREAKFAST tab 10/01/17 magnesium) tablet vit A 7,160 unit-vit C 113 mg-vit 1 tab PO DAILY 04/16/18 E 100 napp-rnpm-lklzia tablet furosemide 40 mg tablet 40 mg PO BID #180 tab 08/16/18 potassium chloride ER 20 mEq 20 meq PO DAILY #90 tab 10/18/18 tablet,extended release warfarin 4 mg tablet 4 mg PO QHS #90 tab 02/04/19 Amlodipine Besylate [Norvasc] 10 mg PO DAILY 02/08/19 Escitalopram Oxalate 10 mg PO DAILY 02/08/19 Hydrochlorothiazide [Hctz] 25 mg PO DAILY 02/08/19 Losartan Potassium 100 mg PO DAILY 02/08/19 Multivitamins,Therapeutic 1 tab PO DAILY 02/08/19 [Multivitamin] Pravastatin [Pravachol] 80 mg PO QHS 02/08/19 Surgical History: Surgical History (Last Reviewed 10/14/18 @ 15:11 by Albert Mojica MD) H/O coronary artery bypass surgery (Resolved) Onset Date: 04/30/01 Z95.1 CABG x 2 SVG-D1 and SVG-OM w/ AVR using a [address] [employer] Mechanical Prosthesis 04/30/2001 H/O aortic valve replacement (Chronic) Onset Date: 04/30/01 Z95.2 AVR using a [address] [employer] Mechanical Prosthesis History of radiofrequency ablation procedure for cardiac arrhythmia (Chronic) Z98.890 Surgical History: - - Tonsillectomy, CABG x2, AVR with mechanical valve, cholecystectomy, cardiac ablation, dental surgery. Psychiatric History: Anxiety, Depression Lives: Spouse/ Significant Other Smoking Status: Former smoker - Patient quit cigarette tobacco usage approximately 25 to 30 years prior. Tobacco Use: Non-smoker Alcohol: Occasional - Patient drinks [place] 1 glass of wine per night. Drugs: None - *Family History Maternal Family History: Family History (Last Reviewed 10/14/18 @ 15:11 by Albert Mojica MD) Father No problems noted. Mother Diabetes History Items: Cancer, Diabetes Paternal Family History: Family History (Last Reviewed 10/14/18 @ 15:11 by Albert Mojica MD) Father No problems noted. Mother Diabetes History Items: - - Patient notes a paternal family history of heart disease. Review of Systems Constitutional: Reports: Fatigue. Denies: Chills, Fever, Weight Change HEENT: Denies: Head Aches, Sinus Congestion, Sinus Drainage Cardiovascular: Denies: Chest Pain, Palpitations Respiratory: Reports: Shortness of Breath. Denies: Cough, Shortness of breath at rest, Sputum production Gastrointestinal: Reports: Melena. Denies: Abdominal Pain, Nausea, Vomiting Genitourinary: Denies: Dysuria Musculoskeletal: Denies: Joint Pain, Joint Tenderness Skin: Denies: Rash, Wounds Neurological: Denies: Numbness, Tingling, Focal weakness Psychiatric: Denies: Anxiety, Depression, Homicidal Ideations, Suicidal Ideations Hematologic/ Lymphatic: Denies: Easy Bruising, Easy Bleeding Patient Problems: Active and Suspected Problems (Last Reviewed 10/14/18 @ 15:11 by Albert Mojica MD) GI bleed (Suspected) Acute blood loss anemia (Acute) Pneumonia (Suspected) - Physical Exam General: Alert, Oriented x3, Cooperative Lungs: Clear to auscultation, Normal air movement Cardiovascular: Irregular Rate, - - mechanical click heard consistent with metallic aortic valve Abdomen: Bowel Sounds Present, Soft, Non Tender Vital Signs Temp Pulse Resp BP Pulse Ox 97.2 F L 78 19 H 109/49 L 98 02/08/19 16:31 02/08/19 16:49 02/08/19 16:31 02/08/19 16:49 02/08/19 16:31 Oxygen Delivery Method Room Air Weight: 83.007 kg Body Mass Index (BMI) 27.8 Orthostatic Vital Signs Start: 02/08/19 16:49 Freq: q24h Status: Active Protocol: Activity Type Activity Date Activity User E-Sign Co-Sign Detail Recorded Client Recorded Date Recorded By Document 02/08/19 16:49 AMG [id number] 02/08/19 16:53 AMG 02/08/19 16:49 Orthostatic Vitals Standing -Blood Pressure (90/60-120/80) 116/60 -Extremity Use Left Arm -Pulse Rate (60-100) 88 Sitting -Blood Pressure (90/60-120/80) 97/61 -Extremity Use Left Arm -Pulse Rate (60-100) 93 Lying -Blood Pressure (90/60-120/80) 109/49 L -Extremity Use Left Arm -Pulse Rate (60-100) 78 Intake and Output for Last 24 Hours 02/06/19 02/07/19 02/08/19 23:59 23:59 23:59 Intake Total 304 / 304 Balance 304 / 304 Microbiology Past 72 Hours 02/08/19 17:35 Streptococcus pneumoniae Antigen (M - Final Urine, Clean Catch 02/08/19 17:35 Legionella Antigen - Final Urine, Clean Catch 02/08/19 15:45 Stool Occult Blood ([place]) - Final Stool Laboratory Tests Past 24 Hrs 02/08/19 02/08/19 02/08/19 14:27 14:27 14:27 WBC 22.2 H RBC 3.19 L Hgb 9.9 L Hct 29.6 L MCV 92.8 MCH 31.0 MCHC 33.4 RDW 14.5 RDW Differential 49.4 H Plt Count 262 MPV 8.8 Immature Gran % (Auto) 0.700 Neut % (Auto) 84.8 H Lymph % (Auto) 6.7 L [place] % (Auto) 7.2 Eos % (Auto) 0.4 Baso % (Auto) 0.2 Absolute Neuts (auto) 18.9 H Absolute Lymphs (auto) 1.49 Total Counted Not Reportable Differential Comment Diff Path Review May foll Platelet Estimate ADEQUATE RBC Morphology NORM C+C PT 37.6 H INR 3.8 H* Sodium 142 Potassium 3.5 Chloride 102 Carbon Dioxide 30.0 Anion Gap 10 BUN 29 H Creatinine 1.54 H Estim Creat Clear Calc 36.40 Est GFR (MDRD) Af Amer 56 L Est GFR (MDRD) Non-Af 46 L BUN/Creatinine Ratio 18.8 Glucose 209 H Lactic Acid Calcium 8.4 L Iron TIBC Iron Saturation Troponin I < 0.015 B-Natriuretic Peptide Urine Color Urine Clarity Urine pH Ur Specific [employer] Urine Protein Urine Glucose (UA) Urine Ketones Urine Occult Blood Urine Nitrite Urine Bilirubin Urine Urobilinogen Ur Leukocyte Esterase Urine RBC Urine WBC Ur Squamous Epith Cells Urine Bacteria Urine Mucus Blood Type Antibody Screen 02/08/19 02/08/19 02/08/19 14:27 14:27 15:30 WBC RBC Hgb Hct MCV MCH MCHC RDW RDW Differential Plt Count MPV Immature Gran % (Auto) Neut % (Auto) Lymph % (Auto) [place] % (Auto) Eos % (Auto) Baso % (Auto) Absolute Neuts (auto) Absolute Lymphs (auto) Total Counted Differential Comment Diff Path Review Platelet Estimate RBC Morphology PT INR Sodium Potassium Chloride Carbon Dioxide Anion Gap BUN Creatinine Estim Creat Clear Calc Est GFR (MDRD) Af Amer Est GFR (MDRD) Non-Af BUN/Creatinine Ratio Glucose Lactic Acid 1.6 Calcium Iron 87 TIBC 330 Iron Saturation 26.4 Troponin I B-Natriuretic Peptide 89.6 Urine Color Urine Clarity Urine pH Ur Specific [employer] Urine Protein Urine Glucose (UA) Urine Ketones Urine Occult Blood Urine Nitrite Urine Bilirubin Urine Urobilinogen Ur Leukocyte Esterase Urine RBC Urine WBC Ur Squamous Epith Cells Urine Bacteria Urine Mucus Blood Type Antibody Screen 02/08/19 02/08/19 02/08/19 17:35 18:00 18:00 WBC RBC Hgb 8.6 L Hct 25.3 L MCV MCH MCHC RDW RDW Differential Plt Count MPV Immature Gran % (Auto) Neut % (Auto) Lymph % (Auto) [place] % (Auto) Eos % (Auto) Baso % (Auto) Absolute Neuts (auto) Absolute Lymphs (auto) Total Counted Differential Comment Diff Path Review Platelet Estimate RBC Morphology PT INR Sodium Potassium Chloride Carbon Dioxide Anion Gap BUN Creatinine Estim Creat Clear Calc Est GFR (MDRD) Af Amer Est GFR (MDRD) Non-Af BUN/Creatinine Ratio Glucose Lactic Acid Calcium Iron TIBC Iron Saturation Troponin I B-Natriuretic Peptide Urine Color Yellow Urine Clarity Clear Urine pH 6.0 Ur Specific [employer] 1.010 Urine Protein Negative Urine Glucose (UA) Normal Urine Ketones Negative Urine Occult Blood Negative Urine Nitrite Negative Urine Bilirubin Negative Urine Urobilinogen Normal Ur Leukocyte Esterase Negative Urine RBC 0 SEEN Urine WBC 0 SEEN Ur Squamous Epith Cells 0-5 SEEN Urine Bacteria 0 SEEN Urine Mucus 0 SEEN Blood Type Pending Antibody Screen Pending Assessment/Plan All Active Problems (Last Reviewed 10/14/18 @ 15:11 by Albert Mojica MD) Acute blood loss anemia (Acute) H/O coronary artery bypass surgery (Resolved 04/30/01) Hematoma of left lower extremity (Resolved) Hematoma of lower limb (Resolved) Nonhealing ulcer of left lower leg (Resolved) Ulcer of right lower extremity with fat layer exposed (Resolved) melena, decreasing hemoglobin, need for continued anticoagulation-shortness of breath-questionable left basilar pneumonia I discussed the patient with Dr. Montalvo. I agree that its urgent to obtain upper and lower endoscopy that the patient's anticoagulation should not be completely reversed or decreased substantially due to his mechanical aortic prosthetic valve giving him an increased risk of stroke or other difficulties if anticoagulants is held. the patient's oxygen saturation is appropriate. He will be getting repeat chest x-ray in the morning and reassess the left base. At this point I would plan to perform bowel prep which if he tolerates well would proceed with upper and lower endoscopy tomorrow. If the patient notes any challenges with the bowel prep and recommended that he stop attending and we'll proceed with just upper endoscopy area. The patient understands the risks, benefits, possible complications including sedation issues if he does have a more significant basilar pneumonia and consents to the endoscopic procedure
[2019-02-08] MEDS: Electrolyte Solution/Peg's 4000 ML PO (20:55)
[2019-02-08] MEDS: guaiFENesin 1,200 MG Tablet 1200 MG PO (21:00)
[2019-02-08] MEDS: Pravastatin 80 MG Tablet PO (21:00)
[2019-02-08 21:45] LABS: Hematocrit 27.2 % (40-54)
[2019-02-08] MEDS: Ondansetron 4 MG/2 ML Vial IV (22:48)
[2019-02-09] VITALS (13 sets, daily range): BP systolic 107–152; BP diastolic 47–69; PULSE 72–100; RESP 12–18; TEMP 36.4–37.6; O2SAT 93–97; BMI 27.8
--- NOTE | 2019-02-09 | GASB_PTH ---
PATIENT: GEORGE MCCLAIN LOC: [facility] U#:[id number] AGE/SX: 83/M ROOM: [facility] RE02/08/[address]: Dr. Jarrod Feldman MD : [id number] BED: 1 DIS: 02/11/2019 SPEC #: [id number] RECD: 02/09/19 14:22 STATUS: DUANE REQ #: [id number] NADIA: 02/09/19 00:[address]: Cornell Pleitez DEPT: SURGICAL PATHOLOGY RECD BY: Daryl Matthew ENTERED: 02/09/19 14:23 SP TYPE: Gastric Bx OTHR DR: MD Dr. Michael Bhandari MD Dr. Prakash Chand, MD Dr. Richard Guttman, MD Tissues: Gastric mucous membrane Procedures: Surgery Specimen Level IV Comments: @ Ordering doctor for SUIV edited from to @ by YVON at 02/09/19 1449 @ Submitting doctor edited from to DR.[email or web address] Kilgore by YVON at 02/09/19 1449 HEADER OPERATION: Colonoscopy, EGD ([facility]) PRE-OP DIAGNOSIS: Anemia TISSUE SUBMITTED: Antral biopsy for histo and H. pylori MICROSCOPIC DIAGNOSIS Antral biopsy: Mild chronic antral gastritis. See comment. CE:selina 02/10/19 COMMENT The results of immunohistochemistry for Helicobacter pylori will be reported separately ([id number]). MICROSCOPIC DESCRIPTION Slides are reviewed. GROSS DESCRIPTION Received in fixative is one container labeled with the patient's name and designated antral biopsy. The specimen consists of a single charles-pink fragment of soft tissue measuring 0.2 x 0.1 x 0.1 cm. The specimen is totally submitted in one cassette. / CE:selina 02/09/19 TC:3 CPT: 65112
[2019-02-09 01:32] LABS: Hematocrit 24.3 % (40-54)
[2019-02-09 05:54] LABS: Absolute Lymphocyte Count 3.66 X10^3/ul (0.83-4.51); Absolute Neutrophil Count 15.2 X10^3/uL (2.0-7.7); Basophil# 0.03 X10^3/uL; Basophil% 0.1 % (0-1); Eosinophils% 0.9 % (0-5); Hematocrit 26.3 % (40-54); Hemoglobin 8.4 g/dl (13.0-16.5); Lymphocyte # 3.66 X10^3/ul (4.0); Lymphocyte % 17.1 % (19-41); Mean Corp Hgb Conc 31.9 g/gl (32-36); Mean Corpuscular Hgb 29.8 pg (27.0-32.0); Mean Corpuscular Volume 93.3 fL (80-94); Mean Platelet Vol. 9.5 fl (6.2-12.0); Monocyte# 2.18 X10^3/uL; Monocyte% 10.2 % (0-10); Neutrophil # 15.21 X10^3/uL (2.7-7.7); Neutrophil % 71.1 % (47-70); Platelet Count 276 K/mm3 (150-450); RBC Distribution Width CV 14.6 % (11.6-14.6); RBC Distribution Width SD 47.9 fl (35.1-43.9); Red Blood Count 2.82 M/mm3 (4.6-6.2); White Blood Count 21.4 K/mm3 (4.4-11.0)
[2019-02-09 05:58] LABS: ALB/GLOB Ratio 1.2 RATIO (0.9-2.4); AST(SGOT) 29 U/L (15-37); Alanine Aminotransfer ALT/SGPT 29 U/L (16-61); Albumin, Serum 3.2 g/dL (3.2-5.0); Alkaline Phosphatase 56 U/L (45-117); Anion Gap 8 (5-15); BUN 23 mg/dL (7-18); BUN/Creat Ratio 21.1 RATIO (10-20); Calcium,Total 8.1 mg/dL (8.5-10.1); Chloride 105 mmol/L (98-107); Creatinine, Serum 1.09 mg/dL (0.70-1.30); Differential Indicated SCAN CRITERIA MET; EST Glomerular Filtration Rate 69 mL/min (>60); Est Glom Filt Rate - Afr Amer 84 mL/min (>60); Estimated Creatinine Clearance 51.42 ml/min; Globulin 2.6 g/dL (2.2-4.2); Glucose 127 mg/dL (74-106); POSITIVE COUNT NO; POSITIVE DIFFERENTIAL YES; POSITIVE MORPHOLOGY NO; Protein, Total 5.8 g/dL (6.4-8.2); Sodium Level 142 mmol/L (136-145)
[2019-02-09 06:07] LABS: International Normalized Ratio 3.4; Prothrombin Time (Protime)PT. 34.6 SECONDS (11.7-14.9)
[2019-02-09] MEDS: 0.9% Normal Saline 1,000 ML 100 ML IV ×3 (06:18→22:45)
--- NOTE | 2019-02-09 08:25 | RAD_ITS ---
STUDY: X-RAY CHEST REASON FOR EXAM: Male, 83 years old. Shortness of breath/dyspnea. TECHNIQUE: PA and lateral views of the chest. COMPARISON: Comparison is made with prior study dated February 08, 2019. FINDINGS: EKG electrodes are seen. Since prior study, there has been a progression of increased markings at the lung bases worse on the left side suggestive of atelectasis superimposed on scarring. Mild degree of vascular congestion. Follow-up is recommended. There is no demonstrated pleural abnormality. Sternal cerclage wires and vascular clips are present from a prior sternotomy and coronary artery bypass graft procedure (CABG). Normal mediastinum and wendy. Normal visualized pulmonary arteries. There is atherosclerotic calcification of the aortic arch with tortuosity. There are diffuse degenerative changes of the visualized thoracic spine. Normal visualized ribs, clavicles, and shoulders. There is no demonstrated abnormality of the visualized soft tissue structures of the upper abdomen. RAD/Chest PA and Lateral IMPRESSION: Progressive increased markings at the lung bases with mild degree of vascular congestion. Electronically Signed: Skyler Dhaliwal, at 9:25 EDT , Service support ,
[2019-02-09] MEDS: Escitalopram Oxalate 10 MG Tablet PO (08:45)
[2019-02-09] MEDS: 0.9% NaCl Peripheral Flush Adult/Peds IV (08:45)
[2019-02-09] MEDS: amLODIPine 10 MG Tablet PO (08:45)
[2019-02-09] MEDS: guaiFENesin 1,200 MG Tablet 1200 MG PO ×2 (08:45→22:44)
[2019-02-09] MEDS: Ceftriaxone 1 GM/50 ML BAG IV (09:29)
--- NOTE | 2019-02-09 10:32 | PN_ITS ---
Patient Problems: Active and Suspected Problems (Last Reviewed 10/14/18 @ 15:11 by Albert Mojica MD) GI bleed (Suspected) Acute blood loss anemia (Acute) Pneumonia (Suspected) Vitals/I&O's: Vital Signs Temp Pulse Resp BP Pulse Ox 97.6 F L 84 12 121/65 H 96 02/09/19 08:45 02/09/19 08:45 02/09/19 08:45 02/09/19 08:45 02/09/19 08:45 Oxygen Delivery Method Room Air Weight: 183 lb Body Mass Index (BMI) 27.8 Orthostatic Vital Signs Start: 02/08/19 16:49 Freq: q24h Status: Active Protocol: Activity Type Activity Date Activity User E-Sign Co-Sign Detail Recorded Client Recorded Date Recorded By Document 02/08/19 16:49 AMG [id number] 02/08/19 16:53 AMG 02/08/19 16:49 Orthostatic Vitals Standing -Blood Pressure (90/60-120/80) 116/60 -Extremity Use Left Arm -Pulse Rate (60-100) 88 Sitting -Blood Pressure (90/60-120/80) 97/61 -Extremity Use Left Arm -Pulse Rate (60-100) 93 Lying -Blood Pressure (90/60-120/80) 109/49 L -Extremity Use Left Arm -Pulse Rate (60-100) 78 Intake and Output for Last 24 Hours 02/07/19 02/08/19 02/09/19 23:59 23:59 23:59 Intake Total 304 / 5104 6683 / 6683 Balance 304 / 5104 6683 / 6683 Microbiology Past 72 Hours 02/09/19 05:13 Stool Stool Occult Blood ([facility]) - Final Occult Blood Positive 02/08/19 17:35 Urine, Clean Catch Streptococcus pneumoniae Antigen (M - Final 02/08/19 17:35 Urine, Clean Catch Legionella Antigen - Final 02/08/19 15:45 Stool Stool Occult Blood ([facility]) - Final Laboratory Results 02/08/19 14:27: WBC 22.2 H, RBC 3.19 L, Hgb 9.9 L, Hct 29.6 L, MCV 92.8, MCH 31.0, MCHC 33.4, RDW 14.5, RDW Differential 49.4 H, Plt Count 262, MPV 8.8, Immature Gran % (Auto) 0.700, Neut % (Auto) 84.8 H, Lymph % (Auto) 6.7 L, [place]aines % (Auto) 7.2, Eos % (Auto) 0.4, Baso % (Auto) 0.2, Absolute Neuts (auto) 18.9 H, Absolute Lymphs (auto) 1.49, Total Counted Not Reportable, Differential Comment , Diff Path Review May , Platelet Estimate ADEQUATE, RBC Morphology NORM C+C 02/08/19 14:27: PT 37.6 H, INR 3.8 H* 02/08/19 14:27: Sodium 142, Potassium 3.5, Chloride 102, Carbon Dioxide 30.0, Anion Gap 10, BUN 29 H, Creatinine 1.54 H, Estim Creat Clear Calc 36.40, Est GFR (MDRD) Af Amer 56 L, Est GFR (MDRD) Non-Af 46 L, BUN/Creatinine Ratio 18.8, Glucose 209 H, Calcium 8.4 L, Troponin I < 0.015 02/08/19 14:27: B-Natriuretic Peptide 89.6 02/08/19 14:27: Iron 87, TIBC 330, Iron Saturation 26.4 02/08/19 15:30: Lactic Acid 1.6 02/08/19 17:35: Urine Color Yellow, Urine Clarity Clear, Urine pH 6.0, Ur Specific [place] 1.010, Urine Protein Negative, Urine Glucose (UA) Normal, Urine Ketones Negative, Urine Occult Blood Negative, Urine Nitrite Negative, Urine Bilirubin Negative, Urine Urobilinogen Normal, Ur Leukocyte Esterase Negative, Urine RBC 0 SEEN, Urine WBC 0 SEEN, Ur Squamous Epith Cells 0-5 SEEN, Urine Bacteria 0 SEEN, Urine Mucus 0 SEEN 02/08/19 18:00: Hgb 8.6 L, Hct 25.3 L 02/08/19 18:00: Blood Type O NEGATIVE, Antibody Screen NEGATIVE 02/08/19 21:30: Hgb 9.0 L, Hct 27.2 L 02/09/19 00:55: Hgb 8.0 L, Hct 24.3 L 02/09/19 05:05: WBC 21.4 H, RBC 2.82 L, Hgb 8.4 L, Hct 26.3 L, MCV 93.3, MCH 29.8, MCHC 31.9 L, RDW 14.6, RDW Differential 47.9 H, Plt Count 276, MPV 9.5, Immature Gran % (Auto) 0.600, Neut % (Auto) 71.1 H, Lymph % (Auto) 17.1 L, [place] % (Auto) 10.2 H, Eos % (Auto) 0.9, Baso % (Auto) 0.1, Absolute Neuts (auto) 15.2 H, Absolute Lymphs (auto) 3.66, Total Counted Not Reportable, Diff Path Review December02/09/19 05:05: PT 34.6 H, INR 3.4 02/09/19 05:05: Sodium 142, Potassium 4.0, Chloride 105, Carbon Dioxide 29.0, Anion Gap 8, BUN 23 H, Creatinine 1.09, Estim Creat Clear Calc 51.42, Est GFR (MDRD) Af Amer 84, Est GFR (MDRD) Non-Af 69, BUN/Creatinine Ratio 21.1 H, Glucose 127 H, Calcium 8.1 L, Total Bilirubin 1.30 H, AST 29, ALT 29, Alkaline Phosphatase 56, Total Protein 5.8 L, Albumin 3.2, Globulin 2.6, Albumin/Globulin Ratio 1.2 Current Medications Acetaminophen (Tylenol) 650 mg PO Q6H PRN PRN PRN Reason: PAIN Hydrocodone Bitart/Acetaminophen (Marilla 5mg-325mg) 1 - 2 tablet PO Q6H PRN PRN PRN Reason: MOD-SEVERE PAIN (4-10/10) Al Hydroxide/Mg Hydroxide (Mylanta Ii) 15 - 30 ml PO Q4H PRN PRN PRN Reason: INDIGESTION Albuterol Sulfate (Ventolin Aerosols) 2.5 mg INHALATION Q2H PRN PRN PRN Reason: dyspnea, wheezing Amlodipine Besylate (Norvasc) 10 mg PO DAILY [facility] Last Admin: 02/09/19 08:45 Dose: 10 mg Documented by: Escitalopram Oxalate (Lexapro) 10 mg PO DAILY [facility] Last Admin: 02/09/19 08:45 Dose: 10 mg Documented by: Guaifenesin (Mucinex) 1,200 mg PO BID [facility] Last Admin: 02/09/19 08:45 Dose: 1,200 mg Documented by: Hydralazine HCl (Apresoline Iv) 10 mg IV Q4H PRN PRN PRN Reason: SBP > 160 Sodium Chloride () 1,000 mls @ 100 mls/hr IV .Q10H [facility] Last Admin: 02/09/19 06:18 Dose: 100 mls/hr Documented by: Azithromycin 500 mg/ Dextrose 255 mls @ 250 mls/hr IV Q24 [facility] Ceftriaxone Sodium (Rocephin) 1 gm in 50 mls @ 100 mls/hr IV Q24 [facility] Last Admin: 02/09/19 09:29 Dose: 100 mls/hr Documented by: Pantoprazole Sodium 40 mg/ (Sodium Chloride) 110 mls @ 330 mls/hr IV Q12 [facility] Last Admin: 02/09/19 08:45 Dose: 330 mls/hr Documented by: Morphine Sulfate () 1 - 2 mg IV Q4H PRN PRN PRN Reason: PAIN Nitroglycerin (Nitrostat) 0.4 mg SUBLINGUAL Q5M PRN PRN Reason: CARDIAC/CHEST PAIN Ondansetron HCl (Zofran) 4 mg IV Q8H PRN PRN PRN Reason: NAUSEA/VOMITING Last Admin: 02/08/19 22:48 Dose: 4 mg Documented by: Pravastatin Sodium (Pravachol) 80 mg PO QHS [facility] Last Admin: 02/08/19 21:00 Dose: 80 mg Documented by: Sodium Chloride () 5 - 15 ml IV UD PRN PRN Reason: SALINE FLUSH Last Admin: 02/09/19 08:45 Dose: 10 ml Documented by: Medical Necessity - Tobacco Use Smoking Status: Former smoker - Patient quit cigarette tobacco usage approximately 25 to 30 years prior. 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) Hematoma of left lower extremity (Resolved) Hematoma of lower limb (Resolved) Nonhealing ulcer of left lower leg (Resolved) Ulcer of right lower extremity with fat layer exposed (Resolved) Microbiology Past 72 Hours 02/09/19 05:13 Stool Stool Occult Blood ([place]) - Final Occult Blood Positive 02/08/19 17:35 Urine, Clean Catch Streptococcus pneumoniae Antigen (M - Final 02/08/19 17:35 Urine, Clean Catch Legionella Antigen - Final 02/08/19 15:45 Stool Stool Occult Blood ([facility]) - Final Laboratory Results 02/08/19 14:27: WBC 22.2 H, RBC 3.19 L, Hgb 9.9 L, Hct 29.6 L, MCV 92.8, MCH 31.0, MCHC 33.4, RDW 14.5, RDW Differential 49.4 H, Plt Count 262, MPV 8.8, Immature Gran % (Auto) 0.700, Neut % (Auto) 84.8 H, Lymph % (Auto) 6.7 L, Gaines % (Auto) 7.2, Eos % (Auto) 0.4, Baso % (Auto) 0.2, Absolute Neuts (auto) 18.9 H, Absolute Lymphs (auto) 1.49, Total Counted Not Reportable, Differential Comment , Diff Path Review December, Platelet Estimate ADEQUATE, RBC Morphology NORM C+C 02/08/19 14:27: PT 37.6 H, INR 3.8 H* 02/08/19 14:27: Sodium 142, Potassium 3.5, Chloride 102, Carbon Dioxide 30.0, Anion Gap 10, BUN 29 H, Creatinine 1.54 H, Estim Creat Clear Calc 36.40, Est GFR (MDRD) Af Amer 56 L, Est GFR (MDRD) Non-Af 46 L, BUN/Creatinine Ratio 18.8, Glucose 209 H, Calcium 8.4 L, Troponin I < 0.015 02/08/19 14:27: B-Natriuretic Peptide 89.6 02/08/19 14:27: Iron 87, TIBC 330, Iron Saturation 26.4 02/08/19 15:30: Lactic Acid 1.6 02/08/19 17:35: Urine Color Yellow, Urine Clarity Clear, Urine pH 6.0, Ur Specific [place] 1.010, Urine Protein Negative, Urine Glucose (UA) Normal, Urine Ketones Negative, Urine Occult Blood Negative, Urine Nitrite Negative, Urine Bilirubin Negative, Urine Urobilinogen Normal, Ur Leukocyte Esterase Negative, Urine RBC 0 SEEN, Urine WBC 0 SEEN, Ur Squamous Epith Cells 0-5 SEEN, Urine Bacteria 0 SEEN, Urine Mucus 0 SEEN 02/08/19 18:00: Hgb 8.6 L, Hct 25.3 L 02/08/19 18:00: Blood Type O NEGATIVE, Antibody Screen NEGATIVE 02/08/19 21:30: Hgb 9.0 L, Hct 27.2 L 02/09/19 00:55: Hgb 8.0 L, Hct 24.3 L 02/09/19 05:05: WBC 21.4 H, RBC 2.82 L, Hgb 8.4 L, Hct 26.3 L, MCV 93.3, MCH 29 .8, MCHC 31.9 L, RDW 14.6, RDW Differential 47.9 H, Plt Count 276, MPV 9.5, Immature Gran % (Auto) 0.600, Neut % (Auto) 71.1 H, Lymph % (Auto) 17.1 L, Gaines % (Auto) 10.2 H, Eos % (Auto) 0.9, Baso % (Auto) 0.1, Absolute Neuts (auto) 15.2 H, Absolute Lymphs (auto) 3.66, Total Counted Not Reportable, Diff Path Review December02/09/19 05:05: PT 34.6 H, INR 3.4 02/09/19 05:05: Sodium 142, Potassium 4.0, Chloride 105, Carbon Dioxide 29.0, Anion Gap 8, BUN 23 H, Creatinine 1.09, Estim Creat Clear Calc 51.42, Est GFR (MDRD) Af Amer 84, Est GFR (MDRD) Non-Af 69, BUN/Creatinine Ratio 21.1 H, Glucose 127 H, Calcium 8.1 L, Total Bilirubin 1.30 H, AST 29, ALT 29, Alkaline Phosphatase 56, Total Protein 5.8 L, Albumin 3.2, Globulin 2.6, Albumin/Globulin Ratio 1.2 Active Medications Acetaminophen (Tylenol) 650 mg PO Q6H PRN PRN PRN Reason: PAIN Hydrocodone Bitart/Acetaminophen (Marilla 5mg-325mg) 1 - 2 tablet PO Q6H PRN PRN PRN Reason: MOD-SEVERE PAIN (4-06/02) Al Hydroxide/Mg Hydroxide (Mylanta Ii) 15 - 30 ml PO Q4H PRN PRN PRN Reason: INDIGESTION Albuterol Sulfate (Ventolin Aerosols) 2.5 mg INHALATION Q2H PRN PRN PRN Reason: dyspnea, wheezing Amlodipine Besylate (Norvasc) 10 mg PO DAILY [facility] Last Admin: 02/09/19 08:45 Dose: 10 mg Documented by: Escitalopram Oxalate (Lexapro) 10 mg PO DAILY [facility] Last Admin: 02/09/19 08:45 Dose: 10 mg Documented by: Guaifenesin (Mucinex) 1,200 mg PO BID [facility] Last Admin: 02/09/19 08:45 Dose: 1,200 mg Documented by: Hydralazine HCl (Apresoline Iv) 10 mg IV Q4H PRN PRN PRN Reason: SBP > 160 Sodium Chloride () 1,000 mls @ 100 mls/hr IV .Q10H [facility] Last Admin: 02/09/19 06:18 Dose: 100 mls/hr Documented by: Azithromycin 500 mg/ Dextrose 255 mls @ 250 mls/hr IV Q24 [facility] Ceftriaxone Sodium (Rocephin) 1 gm in 50 mls @ 100 mls/hr IV Q24 [facility] Last Admin: 02/09/19 09:29 Dose: 100 mls/hr Documented by: Pantoprazole Sodium 40 mg/ (Sodium Chloride) 110 mls @ 330 mls/hr IV Q12 [facility] Last Admin: 02/09/19 08:45 Dose: 330 mls/hr Documented by: Morphine Sulfate () 1 - 2 mg IV Q4H PRN PRN PRN Reason: PAIN Nitroglycerin (Nitrostat) 0.4 mg SUBLINGUAL Q5M PRN PRN Reason: CARDIAC/CHEST PAIN Ondansetron HCl (Zofran) 4 mg IV Q8H PRN PRN PRN Reason: NAUSEA/VOMITING Last Admin: 02/08/19 22:48 Dose: 4 mg Documented by: Pravastatin Sodium (Pravachol) 80 mg PO QHS [facility] Last Admin: 02/08/19 21:00 Dose: 80 mg Documented by: Sodium Chloride () 5 - 15 ml IV UD PRN PRN Reason: SALINE FLUSH Last Admin: 02/09/19 08:45 Dose: 10 ml Documented by:
--- NOTE | 2019-02-09 11:00 | IMM_PTH ---
PATIENT: GEORGE MCCLAIN LOC: PCU U#:[id number] AGE/SX: 83/M ROOM: [facility] RE02/08/[address]: Dr. Jarrod Feldman MD : [id number] BED: 1 DIS: 02/11/2019 SPEC #: [id number] RECD: 02/09/19 14:50 STATUS: SOUT REQ #: [id number] NADIA: 02/09/19 11:[address]: Cornell Pleitez DEPT: IMMUNOHISTOCHEMISTRY RECD BY: Yessi Erwin ENTERED: 02/09/19 14:51 SP TYPE: IMMUNO OTHR DR: MD Dr. Michael Bhandari MD Dr. Prakash Chand, MD Tissues: Stomach, NOS Procedures: H Pylori (initial) PHYSICIAN & INSTITUTION [place] [id number] SPECIMEN INFORMATION: Tissue Source: Antral biopsy Clinical Info: Anemia Specimen Number: [id number] CPT code: 35094 METHODOLOGY: Deparaffinized sections of prefer/formalin-fixed tissue or PAP/DQ stained slides are incubated with monoclonal/polyclonal antibodies/oligonucleotide probes. Localization is made via biotin free immunoperoxidase method. Appropriate controls are performed and reacted as expected. Results on target cell population are indicated in the following table: RESULTS: ANTIBODY / CLONE RESULT H Pylori (polyclonal) negative These tests were developed and their performance characteristics determined by [facility]. They may not have been cleared or approved by the U.[place]. Food and Drug Administration. The FDA has determined that such clearance or approval is not necessary. INTERPRETATION: Antral biopsy: Negative for Helicobacter organisms. CE:selina 02/10/19
--- NOTE | 2019-02-09 12:13 | OP.ENDO_ITS ---
02/09/2019 Fernando Cortez [address] [place] [address] Re : Upper GI endoscopy procedure for Bon [place] Dear Dr. Cortez This procedure was performed on Saturday, February 09, 2019. My impressions and recommendations are as follows: Impressions : - Normal examined jejunum. - Normal. - Normal antrum. Biopsied. - Medium-sized hiatal hernia. - Acute gastritis with hemorrhage. Injected. - Normal esophagus. Recommendations : - [facility]. - Resume previous diet. - Continue present medications. - Use sucralfate tablets 1 gram PO QID. My findings are described in the full procedure note, which is enclosed. If I can be of further assistance, please feel free to contact me at Doctor phone number(s): , Work: . Sincerely, Cornell Pleitez MD 02/09/2019 12:13:01 PM This report has been signed electronically.
--- NOTE | 2019-02-09 12:15 | OP.ENDO_ITS ---
02/09/2019 Fernando Cortez [address] [place] [address] Re : Colonoscopy procedure for [place] Dear Dr. Cortez This procedure was performed on Saturday, February 09, 2019. My impressions and recommendations are as follows: Impressions : - Diverticulosis in the entire examined colon. - The examination was otherwise normal. - The distal rectum and anal verge are normal on retroflexion view. - No specimens collected. Recommendations : - [facility]. - Resume previous diet. - Continue present medications. - Repeat colonoscopy in 10 years for screening purposes. My findings are described in the full procedure note, which is enclosed. If I can be of further assistance, please feel free to contact me at Doctor phone number(s): , Work: . Sincerely, Cornell Pleitez MD 02/09/2019 12:14:55 PM This report has been signed electronically.
--- NOTE | 2019-02-09 12:17 | PN_ITS ---
General: Alert, Oriented x3, Cooperative Lungs: Clear to auscultation, Normal air movement Cardiovascular: Regular rate, No murmurs Abdomen: Bowel Sounds Present, Soft, Non Tender Vital Signs Temp Pulse Resp BP Pulse Ox 98.9 F 84 18 126/47 H 96 02/09/19 10:28 02/09/19 10:28 02/09/19 10:28 02/09/19 10:28 02/09/19 10:28 Oxygen Delivery Method Room Air Weight: 83.007 kg Body Mass Index (BMI) 27.8 Orthostatic Vital Signs Start: 02/08/19 16:49 Freq: q24h Status: Active Protocol: Activity Type Activity Date Activity User E-Sign Co-Sign Detail Recorded Client Recorded Date Recorded By Document 02/08/19 16:49 AMG [id number] 02/08/19 16:53 AMG 02/08/19 16:49 Orthostatic Vitals Standing -Blood Pressure (90/60-120/80) 116/60 -Extremity Use Left Arm -Pulse Rate (60-100) 88 Sitting -Blood Pressure (90/60-120/80) 97/61 -Extremity Use Left Arm -Pulse Rate (60-100) 93 Lying -Blood Pressure (90/60-120/80) 109/49 L -Extremity Use Left Arm -Pulse Rate (60-100) 78 Intake and Output for Last 24 Hours 02/07/19 02/08/19 02/09/19 23:59 23:59 23:59 Intake Total 304 / 5104 6683 / 6683 Balance 304 / 5104 6683 / 6683 Labs (Last 48 Hours) 02/08/19 02/08/19 02/08/19 14:27 14:27 14:27 WBC 22.2 H RBC 3.19 L Hgb 9.9 L Hct 29.6 L MCV 92.8 MCH 31.0 MCHC 33.4 RDW 14.5 RDW Differential 49.4 H Plt Count 262 MPV 8.8 Immature Gran % (Auto) 0.700 Neut % (Auto) 84.8 H Lymph % (Auto) 6.7 L [place] % (Auto) 7.2 Eos % (Auto) 0.4 Baso % (Auto) 0.2 Absolute Neuts (auto) 18.9 H Absolute Lymphs (auto) 1.49 Total Counted Not Reportable Differential Comment Diff Path Review May foll Platelet Estimate ADEQUATE RBC Morphology NORM C+C PT 37.6 H INR 3.8 H* Sodium 142 Potassium 3.5 Chloride 102 Carbon Dioxide 30.0 Anion Gap 10 BUN 29 H Creatinine 1.54 H Estim Creat Clear Calc 36.40 Est GFR (MDRD) Af Amer 56 L Est GFR (MDRD) Non-Af 46 L BUN/Creatinine Ratio 18.8 Glucose 209 H Lactic Acid Calcium 8.4 L Iron TIBC Iron Saturation Total Bilirubin AST ALT Alkaline Phosphatase Troponin I < 0.015 B-Natriuretic Peptide Total Protein Albumin Globulin Albumin/Globulin Ratio Urine Color Urine Clarity Urine pH Ur Specific [place] Urine Protein Urine Glucose (UA) Urine Ketones Urine Occult Blood Urine Nitrite Urine Bilirubin Urine Urobilinogen Ur Leukocyte Esterase Urine RBC Urine WBC Ur Squamous Epith Cells Urine Bacteria Urine Mucus Blood Type Antibody Screen 02/08/19 02/08/19 02/08/19 14:27 14:27 15:30 WBC RBC Hgb Hct MCV MCH MCHC RDW RDW Differential Plt Count MPV Immature Gran % (Auto) Neut % (Auto) Lymph % (Auto) [place] % (Auto) Eos % (Auto) Baso % (Auto) Absolute Neuts (auto) Absolute Lymphs (auto) Total Counted Differential Comment Diff Path Review Platelet Estimate RBC Morphology PT INR Sodium Potassium Chloride Carbon Dioxide Anion Gap BUN Creatinine Estim Creat Clear Calc Est GFR (MDRD) Af Amer Est GFR (MDRD) Non-Af BUN/Creatinine Ratio Glucose Lactic Acid 1.6 Calcium Iron 87 TIBC 330 Iron Saturation 26.4 Total Bilirubin AST ALT Alkaline Phosphatase Troponin I B-Natriuretic Peptide 89.6 Total Protein Albumin Globulin Albumin/Globulin Ratio Urine Color Urine Clarity Urine pH Ur Specific [place] Urine Protein Urine Glucose (UA) Urine Ketones Urine Occult Blood Urine Nitrite Urine Bilirubin Urine Urobilinogen Ur Leukocyte Esterase Urine RBC Urine WBC Ur Squamous Epith Cells Urine Bacteria Urine Mucus Blood Type Antibody Screen 02/08/19 02/08/19 02/08/19 17:35 18:00 18:00 WBC RBC Hgb 8.6 L Hct 25.3 L MCV MCH MCHC RDW RDW Differential Plt Count MPV Immature Gran % (Auto) Neut % (Auto) Lymph % (Auto) [place] % (Auto) Eos % (Auto) Baso % (Auto) Absolute Neuts (auto) Absolute Lymphs (auto) Total Counted Differential Comment Diff Path Review Platelet Estimate RBC Morphology PT INR Sodium Potassium Chloride Carbon Dioxide Anion Gap BUN Creatinine Estim Creat Clear Calc Est GFR (MDRD) Af Amer Est GFR (MDRD) Non-Af BUN/Creatinine Ratio Glucose Lactic Acid Calcium Iron TIBC Iron Saturation Total Bilirubin AST ALT Alkaline Phosphatase Troponin I B-Natriuretic Peptide Total Protein Albumin Globulin Albumin/Globulin Ratio Urine Color Yellow Urine Clarity Clear Urine pH 6.0 Ur Specific [place] 1.010 Urine Protein Negative Urine Glucose (UA) Normal Urine Ketones Negative Urine Occult Blood Negative Urine Nitrite Negative Urine Bilirubin Negative Urine Urobilinogen Normal Ur Leukocyte Esterase Negative Urine RBC 0 SEEN Urine WBC 0 SEEN Ur Squamous Epith Cells 0-5 SEEN Urine Bacteria 0 SEEN Urine Mucus 0 SEEN Blood Type O NEGATIVE Antibody Screen NEGATIVE 02/08/19 02/09/19 02/09/19 21:30 00:55 05:05 WBC 21.4 H RBC 2.82 L Hgb 9.0 L 8.0 L 8.4 L Hct 27.2 L 24.3 L 26.3 L MCV 93.3 MCH 29.8 MCHC 31.9 L RDW 14.6 RDW Differential 47.9 H Plt Count 276 MPV 9.5 Immature Gran % (Auto) 0.600 Neut % (Auto) 71.1 H Lymph % (Auto) 17.1 L [place] % (Auto) 10.2 H Eos % (Auto) 0.9 Baso % (Auto) 0.1 Absolute Neuts (auto) 15.2 H Absolute Lymphs (auto) 3.66 Total Counted Not Reportable Differential Comment Diff Path Review May foll Platelet Estimate RBC Morphology PT INR Sodium Potassium Chloride Carbon Dioxide Anion Gap BUN Creatinine Estim Creat Clear Calc Est GFR (MDRD) Af Amer Est GFR (MDRD) Non-Af BUN/Creatinine Ratio Glucose Lactic Acid Calcium Iron TIBC Iron Saturation Total Bilirubin AST ALT Alkaline Phosphatase Troponin I B-Natriuretic Peptide Total Protein Albumin Globulin Albumin/Globulin Ratio Urine Color Urine Clarity Urine pH Ur Specific [place] Urine Protein Urine Glucose (UA) Urine Ketones Urine Occult Blood Urine Nitrite Urine Bilirubin Urine Urobilinogen Ur Leukocyte Esterase Urine RBC Urine WBC Ur Squamous Epith Cells Urine Bacteria Urine Mucus Blood Type Antibody Screen 02/09/19 02/09/19 05:05 05:05 WBC RBC Hgb Hct MCV MCH MCHC RDW RDW Differential Plt Count MPV Immature Gran % (Auto) Neut % (Auto) Lymph % (Auto) [place] % (Auto) Eos % (Auto) Baso % (Auto) Absolute Neuts (auto) Absolute Lymphs (auto) Total Counted Differential Comment Diff Path Review Platelet Estimate RBC Morphology PT 34.6 H INR 3.4 Sodium 142 Potassium 4.0 Chloride 105 Carbon Dioxide 29.0 Anion Gap 8 BUN 23 H Creatinine 1.09 Estim Creat Clear Calc 51.42 Est GFR (MDRD) Af Amer 84 Est GFR (MDRD) Non-Af 69 BUN/Creatinine Ratio 21.1 H Glucose 127 H Lactic Acid Calcium 8.1 L Iron TIBC Iron Saturation Total Bilirubin 1.30 H AST 29 ALT 29 Alkaline Phosphatase 56 Troponin I B-Natriuretic Peptide Total Protein 5.8 L Albumin 3.2 Globulin 2.6 Albumin/Globulin Ratio 1.2 Urine Color Urine Clarity Urine pH Ur Specific [place] Urine Protein Urine Glucose (UA) Urine Ketones Urine Occult Blood Urine Nitrite Urine Bilirubin Urine Urobilinogen Ur Leukocyte Esterase Urine RBC Urine WBC Ur Squamous Epith Cells Urine Bacteria Urine Mucus Blood Type Antibody Screen Microbiology 02/09/19 05:13 Stool Stool Occult Blood ([facility]) - Final Occult Blood Positive 02/08/19 17:35 Urine, Clean Catch Streptococcus pneumoniae Antigen (M - Final 02/08/19 17:35 Urine, Clean Catch Legionella Antigen - Final 02/08/19 15:45 Stool Stool Occult Blood ([facility]) - Final Medical Necessity - Tobacco Use Smoking Status: Former smoker - Patient quit cigarette tobacco usage approximately 25 to 30 years prior. 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 Montalvo. I agree that its urgent to obtain upper and lower endoscopy that the patient's anticoagulation should not be completely reversed or decreased substantially due to his mechanical aortic prosthetic valve giving him an increased risk of stroke or other difficulties if anticoagulants is held. the patient's oxygen saturation is appropriate. Repeat chest x-ray in the morning demonstrated scarring without infiltrate Upper endoscopy demonstrated a moderate hiatal hernia with 3 small adherent clots, one of which started bleeding and was controlled with epinephrine. This is most likely marginal irritation/ulceration from motion over the diaphragmatic hiatus. I added Carafate to the PPI. Lower endoscopy demonstrated diverticulosis without any suspicious findings.
--- NOTE | 2019-02-09 13:00 | CASEMGMT ---
Addendum entered by Berenice Ackerman 02/09/19 14:18: LW and HCPOA not found on file @ [facility]. Pt made aware. He states he will ask his to bring them in. Original Note: RN CM MAILING MACHINE ASSISTANT CM to room to meet with patient for initial transition planning/care coordination assessment. SHELLY RIGGS introduced self and role at [facility]. Pt voices understanding and consents to assessment at this time. Pt resting in bed in no distress at this time. @ bedside. Pt is A/O at this time and answers all questions appropriately. Care providers, pharmacy, and demographics verified at this time. PCP: Diego Specialists: Galina (cardiology), Javon (retinology) Preferred Pharmacy: [facility] Insurance: [employer] Prescription Benefit: Yes Living Will/HPOA: Has both LW and HCPOA, who is his , Andrew Ruth. LNOK: Living Arrangements: Lives with in 1 1/2 story home. Denies difficulty with stairs. Independent. does meals and laundry. They hire a literacy specialist to clean 2 x's/month. Transportation: Pt states drives self and states no transportation concerns at this time. will take pt home @ D/C. DME: Denies using any DME and denies needs. HHC/SNF: No history of either. No needs identified. Pt wishes to return home and states has no concerns with going home at time of discharge. Pt states does not smoke. States he drinks wine or beer, about 1-2 glasses a night during the week and does not usually drink over the weekend. CM to follow for any discharge planning/needs. Pt and voice no concerns/needs at this time. Advised pt to ask for CM if any further questions/concerns/needs arise. They voice understanding. PLAN: Home w/spousal support and discharge plans in place. January MOE RN, CM
--- NOTE | 2019-02-09 14:43 | PN_ITS ---
<Shaun Hardy - Last Filed: 02/09/19 14:43> Patient Problems: Active and Suspected Problems (Last Reviewed 10/14/18 @ 15:11 by Albert Young MD) GI bleed (Suspected) Acute blood loss anemia (Acute) Pneumonia (Suspected) Subjective: Pt resting comfortably in bed no acute issues. He underwent EGD and colonoscopy with Dr. Pleitez this AM with bleeding in his stomach that was injected with epi and diverticulosis in the colon. He has no SOB, LH, Dizziness, no cough at all, abdominal pain, nausea, or vomiting. He plans to go home tomorrow. - Physical Exam General: Alert, Oriented x3, Cooperative HEENT: Atraumatic, PERRLA, EOMI, Normocephalic Neck: Supple, No JVD, Negative Carotid Bruits Lungs: Clear to auscultation, Diminished Cardiovascular: Regular rate, No murmurs Abdomen: Bowel Sounds Present, Soft, Non Tender Extremities: No edema, Capillary Refill Less than 3 Seconds Skin: No rashes, No breakdown Musculoskeletal: No Tenderness to Palpation of Joints or Extremities Neurological: Cranial nerves II-XII grossly intact Psych/Mental Status: Normal Affect, Appropriate Vital Signs Temp Pulse Resp BP Pulse Ox 99.7 F H 84 16 119/58 L 95 02/09/19 12:35 02/09/19 12:35 02/09/19 12:35 02/09/19 12:35 02/09/19 12:35 Oxygen Delivery Method Room Air Weight: 182 lb 15.739 oz Body Mass Index (BMI) 27.8 Orthostatic Vital Signs Start: 02/08/19 16:49 Freq: q24h Status: Active Protocol: Activity Type Activity Date Activity User E-Sign Co-Sign Detail Recorded Client Recorded Date Recorded By Document 02/08/19 16:49 AMG [id number] 02/08/19 16:53 AMG 02/08/19 16:49 Orthostatic Vitals Standing -Blood Pressure (90/60-120/80) 116/60 -Extremity Use Left Arm -Pulse Rate (60-100) 88 Sitting -Blood Pressure (90/60-120/80) 97/61 -Extremity Use Left Arm -Pulse Rate (60-100) 93 Lying -Blood Pressure (90/60-120/80) 109/49 L -Extremity Use Left Arm -Pulse Rate (60-100) 78 Intake and Output for Last 24 Hours 02/07/19 02/08/19 02/09/19 23:59 23:59 23:59 Intake Total 304 / 5104 7838 / 7838 Balance 304 / 5104 7838 / 7838 Microbiology Past 72 Hours 02/08/19 19:50 Respiratory Panel (PCR) - Final Mucosa - Nasopharyngeal 02/09/19 05:13 Stool Occult Blood ([place]) - Final Stool Occult Blood Positive 02/08/19 17:35 Streptococcus pneumoniae Antigen (M - Final Urine, Clean Catch 02/08/19 17:35 Legionella Antigen - Final Urine, Clean Catch 02/08/19 15:45 Stool Occult Blood ([place]) - Final Stool Laboratory Tests Past 24 Hrs 02/08/19 02/08/19 02/08/19 14:27 14:27 14:27 WBC 22.2 H RBC 3.19 L Hgb 9.9 L Hct 29.6 L MCV 92.8 MCH 31.0 MCHC 33.4 RDW 14.5 RDW Differential 49.4 H Plt Count 262 MPV 8.8 Immature Gran % (Auto) 0.700 Neut % (Auto) 84.8 H Lymph % (Auto) 6.7 L [place] % (Auto) 7.2 Eos % (Auto) 0.4 Baso % (Auto) 0.2 Absolute Neuts (auto) 18.9 H Absolute Lymphs (auto) 1.49 Total Counted Not Reportable Differential Comment Diff Path Review May foll Platelet Estimate ADEQUATE RBC Morphology NORM C+C PT 37.6 H INR 3.8 H* Sodium 142 Potassium 3.5 Chloride 102 Carbon Dioxide 30.0 Anion Gap 10 BUN 29 H Creatinine 1.54 H Estim Creat Clear Calc 36.40 Est GFR (MDRD) Af Amer 56 L Est GFR (MDRD) Non-Af 46 L BUN/Creatinine Ratio 18.8 Glucose 209 H Lactic Acid Calcium 8.4 L Iron TIBC Iron Saturation Total Bilirubin AST ALT Alkaline Phosphatase Troponin I < 0.015 B-Natriuretic Peptide Total Protein Albumin Globulin Albumin/Globulin Ratio Urine Color Urine Clarity Urine pH Ur Specific [place] Urine Protein Urine Glucose (UA) Urine Ketones Urine Occult Blood Urine Nitrite Urine Bilirubin Urine Urobilinogen Ur Leukocyte Esterase Urine RBC Urine WBC Ur Squamous Epith Cells Urine Bacteria Urine Mucus Blood Type Antibody Screen 06/02/08/19 02/08/19 14:27 14:27 15:30 WBC RBC Hgb Hct MCV MCH MCHC RDW RDW Differential Plt Count MPV Immature Gran % (Auto) Neut % (Auto) Lymph % (Auto) [place] % (Auto) Eos % (Auto) Baso % (Auto) Absolute Neuts (auto) Absolute Lymphs (auto) Total Counted Differential Comment Diff Path Review Platelet Estimate RBC Morphology PT INR Sodium Potassium Chloride Carbon Dioxide Anion Gap BUN Creatinine Estim Creat Clear Calc Est GFR (MDRD) Af Amer Est GFR (MDRD) Non-Af BUN/Creatinine Ratio Glucose Lactic Acid 1.6 Calcium Iron 87 TIBC 330 Iron Saturation 26.4 Total Bilirubin AST ALT Alkaline Phosphatase Troponin I B-Natriuretic Peptide 89.6 Total Protein Albumin Globulin Albumin/Globulin Ratio Urine Color Urine Clarity Urine pH Ur Specific [place] Urine Protein Urine Glucose (UA) Urine Ketones Urine Occult Blood Urine Nitrite Urine Bilirubin Urine Urobilinogen Ur Leukocyte Esterase Urine RBC Urine WBC Ur Squamous Epith Cells Urine Bacteria Urine Mucus Blood Type Antibody Screen 02/08/19 02/08/19 02/08/19 17:35 18:00 18:00 WBC RBC Hgb 8.6 L Hct 25.3 L MCV MCH MCHC RDW RDW Differential Plt Count MPV Immature Gran % (Auto) Neut % (Auto) Lymph % (Auto) [place] % (Auto) Eos % (Auto) Baso % (Auto) Absolute Neuts (auto) Absolute Lymphs (auto) Total Counted Differential Comment Diff Path Review Platelet Estimate RBC Morphology PT INR Sodium Potassium Chloride Carbon Dioxide Anion Gap BUN Creatinine Estim Creat Clear Calc Est GFR (MDRD) Af Amer Est GFR (MDRD) Non-Af BUN/Creatinine Ratio Glucose Lactic Acid Calcium Iron TIBC Iron Saturation Total Bilirubin AST ALT Alkaline Phosphatase Troponin I B-Natriuretic Peptide Total Protein Albumin Globulin Albumin/Globulin Ratio Urine Color Yellow Urine Clarity Clear Urine pH 6.0 Ur Specific [place] 1.010 Urine Protein Negative Urine Glucose (UA) Normal Urine Ketones Negative Urine Occult Blood Negative Urine Nitrite Negative Urine Bilirubin Negative Urine Urobilinogen Normal Ur Leukocyte Esterase Negative Urine RBC 0 SEEN Urine WBC 0 SEEN Ur Squamous Epith Cells 0-5 SEEN Urine Bacteria 0 SEEN Urine Mucus 0 SEEN Blood Type O NEGATIVE Antibody Screen NEGATIVE 02/08/19 02/09/19 02/09/19 21:30 00:55 05:05 WBC 21.4 H RBC 2.82 L Hgb 9.0 L 8.0 L 8.4 L Hct 27.2 L 24.3 L 26.3 L MCV 93.3 MCH 29.8 MCHC 31.9 L RDW 14.6 RDW Differential 47.9 H Plt Count 276 MPV 9.5 Immature Gran % (Auto) 0.600 Neut % (Auto) 71.1 H Lymph % (Auto) 17.1 L [place] % (Auto) 10.2 H Eos % (Auto) 0.9 Baso % (Auto) 0.1 Absolute Neuts (auto) 15.2 H Absolute Lymphs (auto) 3.66 Total Counted Not Reportable Differential Comment Diff Path Review May foll Platelet Estimate RBC Morphology PT INR Sodium Potassium Chloride Carbon Dioxide Anion Gap BUN Creatinine Estim Creat Clear Calc Est GFR (MDRD) Af Amer Est GFR (MDRD) Non-Af BUN/Creatinine Ratio Glucose Lactic Acid Calcium Iron TIBC Iron Saturation Total Bilirubin AST ALT Alkaline Phosphatase Troponin I B-Natriuretic Peptide Total Protein Albumin Globulin Albumin/Globulin Ratio Urine Color Urine Clarity Urine pH Ur Specific [place] Urine Protein Urine Glucose (UA) Urine Ketones Urine Occult Blood Urine Nitrite Urine Bilirubin Urine Urobilinogen Ur Leukocyte Esterase Urine RBC Urine WBC Ur Squamous Epith Cells Urine Bacteria Urine Mucus Blood Type Antibody Screen 02/09/19 02/09/19 05:05 05:05 WBC RBC Hgb Hct MCV MCH MCHC RDW RDW Differential Plt Count MPV Immature Gran % (Auto) Neut % (Auto) Lymph % (Auto) [place] % (Auto) Eos % (Auto) Baso % (Auto) Absolute Neuts (auto) Absolute Lymphs (auto) Total Counted Differential Comment Diff Path Review Platelet Estimate RBC Morphology PT 34.6 H INR 3.4 Sodium 142 Potassium 4.0 Chloride 105 Carbon Dioxide 29.0 Anion Gap 8 BUN 23 H Creatinine 1.09 Estim Creat Clear Calc 51.42 Est GFR (MDRD) Af Amer 84 Est GFR (MDRD) Non-Af 69 BUN/Creatinine Ratio 21.1 H Glucose 127 H Lactic Acid Calcium 8.1 L Iron TIBC Iron Saturation Total Bilirubin 1.30 H AST 29 ALT 29 Alkaline Phosphatase 56 Troponin I B-Natriuretic Peptide Total Protein 5.8 L Albumin 3.2 Globulin 2.6 Albumin/Globulin Ratio 1.2 Urine Color Urine Clarity Urine pH Ur Specific [place] Urine Protein Urine Glucose (UA) Urine Ketones Urine Occult Blood Urine Nitrite Urine Bilirubin Urine Urobilinogen Ur Leukocyte Esterase Urine RBC Urine WBC Ur Squamous Epith Cells Urine Bacteria Urine Mucus Blood Type Antibody Screen Medical Necessity - Tobacco Use Smoking Status: Former smoker - Patient quit cigarette tobacco usage approximately 25 to 30 years prior. 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 Upper GI bleed - acute gastritis with hemorrhage on EGD. Received epi injection. Colonoscopy with Diverticulosis. Continue PPI and carafate. Iron studies ok. 2. Questionable CAP - no cough, had increasing SOB at home worse with exertion. No fevers/chills. Does have high WBC count and progressive changes on CXR possibly suggestive of pna. Continue empiric antibiotics. BNP negative. Trop neg. UA neg. 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 I discussed this with his substance abuse counselor, Dr. Young, however we will need to adjust his dose to keep him closer to 2.7 rather than 3.5. Restart warfarin tomorrow at 3.5 mg and will need very close monitoring of inr to establish correct dose. 4. INÉS - resolved. 5. Chronic Afib - stable. 6. HTN - stable. orthos negative. 7. Chronic diastolic CHF - bnp negative he does not appear volume overloaded DVT ppx: warfarin is therapeutic DC planning: likely home tomorrow, rediscuss INR with Dr. Young prior to DC. This patient was seen by Shaun Hardy PA-C under the supervision of Dr. Feldman. <Jarrod Fedlman - Last Filed: 02/09/19 16:09> Subjective: The patient was admitted with GI bleed, cough and shortness of breath. Patient had EGD and colonoscopy in the morning. Patient was found 3 small adherent clots near moderate hiatus hernia. Epi was injected. Patient did not have fever chills, tachycardia or signs and symptoms of infection. - Physical Exam General: Alert, Oriented x3, Cooperative HEENT: Atraumatic, PERRLA, EOMI, Normocephalic Neck: Supple, No JVD, Negative Carotid Bruits Lungs: Clear to auscultation, No rhonchi, No wheeze, No rales, Diminished - Air entry is diminished in bilateral lung bases. Cardiovascular: Regular rate, Regular Rhythm, Normal S1, Normal S2, No murmurs Abdomen: Bowel Sounds Present, Soft, Non Tender, Non-Distended Extremities: No edema, Capillary Refill Less than 3 Seconds Skin: No rashes, No breakdown Musculoskeletal: No Tenderness to Palpation of Joints or Extremities, Tenderness - Mild chronic muscle tenderness in the right thigh. Patient has follow-up with PCP. Probably stretched muscle during tennis play Neurological: Cranial nerves II-XII grossly intact Psych/Mental Status: Normal Affect, Appropriate Vital Signs Temp Pulse Resp BP Pulse Ox 98.1 F 77 14 108/65 93 02/09/19 15:10 02/09/19 15:14 02/09/19 15:10 02/09/19 15:10 02/09/19 15:10 Oxygen Delivery Method Room Air Weight: 182 lb 15.739 oz Body Mass Index (BMI) 27.8 Orthostatic Vital Signs Start: 02/08/19 16:49 Freq: q24h Status: Active Protocol: Activity Type Activity Date Activity User E-Sign Co-Sign Detail Recorded Client Recorded Date Recorded By Document 02/08/19 16:49 AMG [id number] 02/08/19 16:53 AMG 02/08/19 16:49 Orthostatic Vitals Standing -Blood Pressure (90/60-120/80) 116/60 -Extremity Use Left Arm -Pulse Rate (60-100) 88 Sitting -Blood Pressure (90/60-120/80) 97/61 -Extremity Use Left Arm -Pulse Rate (60-100) 93 Lying -Blood Pressure (90/60-120/80) 109/49 L -Extremity Use Left Arm -Pulse Rate (60-100) 78 Intake and Output for Last 24 Hours 02/07/19 02/08/19 02/09/19 23:59 23:59 23:59 Intake Total 304 / 5104 7838 / 7838 Balance 304 / 5104 7838 / 7838 Microbiology Past 72 Hours 02/08/19 19:50 Respiratory Panel (PCR) - Final Mucosa - Nasopharyngeal 02/09/19 05:13 Stool Occult Blood ([place]) - Final Stool Occult Blood Positive 02/08/19 17:35 Streptococcus pneumoniae Antigen (M - Final Urine, Clean Catch 02/08/19 17:35 Legionella Antigen - Final Urine, Clean Catch 02/08/19 15:45 Stool Occult Blood ([place]) - Final Stool Laboratory Tests Past 24 Hrs 02/08/19 02/08/19 02/08/19 14:27 15:30 17:35 WBC RBC Hgb Hct MCV MCH MCHC RDW RDW Differential Plt Count MPV Immature Gran % (Auto) Neut % (Auto) Lymph % (Auto) [place] % (Auto) Eos % (Auto) Baso % (Auto) Absolute Neuts (auto) Absolute Lymphs (auto) Total Counted Diff Path Review PT INR Sodium Potassium Chloride Carbon Dioxide Anion Gap BUN Creatinine Estim Creat Clear Calc Est GFR (MDRD) Af Amer Est GFR (MDRD) Non-Af BUN/Creatinine Ratio Glucose Lactic Acid 1.6 Calcium Iron 87 TIBC 330 Iron Saturation 26.4 Total Bilirubin AST ALT Alkaline Phosphatase Total Protein Albumin Globulin Albumin/Globulin Ratio Urine Color Yellow Urine Clarity Clear Urine pH 6.0 Ur Specific [place] 1.010 Urine Protein Negative Urine Glucose (UA) Normal Urine Ketones Negative Urine Occult Blood Negative Urine Nitrite Negative Urine Bilirubin Negative Urine Urobilinogen Normal Ur Leukocyte Esterase Negative Urine RBC 0 SEEN Urine WBC 0 SEEN Ur Squamous Epith Cells 0-5 SEEN Urine Bacteria 0 SEEN Urine Mucus 0 SEEN Blood Type Antibody Screen 02/08/19 02/08/19 02/08/19 18:00 18:00 21:30 WBC RBC Hgb 8.6 L 9.0 L Hct 25.3 L 27.2 L MCV MCH MCHC RDW RDW Differential Plt Count MPV Immature Gran % (Auto) Neut % (Auto) Lymph % (Auto) [place] % (Auto) Eos % (Auto) Baso % (Auto) Absolute Neuts (auto) Absolute Lymphs (auto) Total Counted Diff Path Review PT INR Sodium Potassium Chloride Carbon Dioxide Anion Gap BUN Creatinine Estim Creat Clear Calc Est GFR (MDRD) Af Amer Est GFR (MDRD) Non-Af BUN/Creatinine Ratio Glucose Lactic Acid Calcium Iron TIBC Iron Saturation Total Bilirubin AST ALT Alkaline Phosphatase Total Protein Albumin Globulin Albumin/Globulin Ratio Urine Color Urine Clarity Urine pH Ur Specific [place] Urine Protein Urine Glucose (UA) Urine Ketones Urine Occult Blood Urine Nitrite Urine Bilirubin Urine Urobilinogen Ur Leukocyte Esterase Urine RBC Urine WBC Ur Squamous Epith Cells Urine Bacteria Urine Mucus Blood Type O NEGATIVE Antibody Screen NEGATIVE 02/09/19 02/09/19 02/09/19 00:55 05:05 05:05 WBC 21.4 H RBC 2.82 L Hgb 8.0 L 8.4 L Hct 24.3 L 26.3 L MCV 93.3 MCH 29.8 MCHC 31.9 L RDW 14.6 RDW Differential 47.9 H Plt Count 276 MPV 9.5 Immature Gran % (Auto) 0.600 Neut % (Auto) 71.1 H Lymph % (Auto) 17.1 L [place] % (Auto) 10.2 H Eos % (Auto) 0.9 Baso % (Auto) 0.1 Absolute Neuts (auto) 15.2 H Absolute Lymphs (auto) 3.66 Total Counted Not Reportable Diff Path Review December foll PT 34.6 H INR 3.4 Sodium Potassium Chloride Carbon Dioxide Anion Gap BUN Creatinine Estim Creat Clear Calc Est GFR (MDRD) Af Amer Est GFR (MDRD) Non-Af BUN/Creatinine Ratio Glucose Lactic Acid Calcium Iron TIBC Iron Saturation Total Bilirubin AST ALT Alkaline Phosphatase Total Protein Albumin Globulin Albumin/Globulin Ratio Urine Color Urine Clarity Urine pH Ur Specific [place] Urine Protein Urine Glucose (UA) Urine Ketones Urine Occult Blood Urine Nitrite Urine Bilirubin Urine Urobilinogen Ur Leukocyte Esterase Urine RBC Urine WBC Ur Squamous Epith Cells Urine Bacteria Urine Mucus Blood Type Antibody Screen 02/09/19 05:05 WBC RBC Hgb Hct MCV MCH MCHC RDW RDW Differential Plt Count MPV Immature Gran % (Auto) Neut % (Auto) Lymph % (Auto) [place] % (Auto) Eos % (Auto) Baso % (Auto) Absolute Neuts (auto) Absolute Lymphs (auto) Total Counted Diff Path Review PT INR Sodium 142 Potassium 4.0 Chloride 105 Carbon Dioxide 29.0 Anion Gap 8 BUN 23 H Creatinine 1.09 Estim Creat Clear Calc 51.42 Est GFR (MDRD) Af Amer 84 Est GFR (MDRD) Non-Af 69 BUN/Creatinine Ratio 21.1 H Glucose 127 H Lactic Acid Calcium 8.1 L Iron TIBC Iron Saturation Total Bilirubin 1.30 H AST 29 ALT 29 Alkaline Phosphatase 56 Total Protein 5.8 L Albumin 3.2 Globulin 2.6 Albumin/Globulin Ratio 1.2 Urine Color Urine Clarity Urine pH Ur Specific [place] Urine Protein Urine Glucose (UA) Urine Ketones Urine Occult Blood Urine Nitrite Urine Bilirubin Urine Urobilinogen Ur Leukocyte Esterase Urine RBC Urine WBC Ur Squamous Epith Cells Urine Bacteria Urine Mucus Blood Type Antibody Screen Assessment/Plan This patient was seen in conjunction with Shaun ARECHIGA. I have independently interviewed and examined the patient and reviewed pertinent history, examination findings, laboratory and plan of management. I have reviewed the note and agree with the documented findings with the few additional points. In brief, patient is admitted for upper GI bleed. EGD shows moderate hiatus hernia with 3 small adherent clots. AP was injected. Patient on IV PPI twice daily and Carafate. Colonoscopy showed diverticulosis which is not new and nonbleeding. Patient does not have signs and symptoms of infection or pneumonia. Respiratory panel is negative. Urinary antigens are negative. Chest x-ray shows bilateral lung bases atelectasis with left lung base worse than right. We will discontinue the antibiotics. Monitor off antibiotics. Patient has mechanical aortic valve. Dr. young recommended to keep INR around 2.7. Currently 3.4. Will resume Coumadin at lower dose as per the INR tomorrow. I have discussed my assessment with Shaun ARECHIGA and orders have been reviewed. Code Visit Inpatient E&M: 49076 Subs Hosp L3
--- NOTE | 2019-02-09 16:53 | CHAPLAIN ---
Type of Pastoral Visit _x__ Initial Visit ___ Follow-up Visit ___ On-call Visit ___ General Patient Visit ___ Spiritual Assessment ___ Family Conference ___ Bereavement ___ Rapid Response ___ Code Blue ___ Other (describe below) Pastoral Care Referral From _x__ Patient ___ Family ___ Nurse ___ Physician ___ Heavy Antiarmor Weapons Infantryman ___ Printing Sales Representative ___ Other (describe below) Sacrament/Intervention _x__ Active listening ___ Anointing ___ Christianity ___ Bereavement ___ Communion ___ Aster exploration ___ _x__ Life review ___ Prayer ___ Reconciliation ___ Sacrament of Sick ___ Supportive presence ___ Wedding ___ Other (describe below) Pastoral Comments
[2019-02-09] MEDS: Sucralfate 1 GM Tablet PO ×2 (17:01→22:02)
[2019-02-09] MEDS: Pravastatin 80 MG Tablet PO (22:44)
[2019-02-10] VITALS (13 sets, daily range): BP systolic 123–139; BP diastolic 59–85; PULSE 73–107; RESP 14–18; TEMP 36.4–36.9; O2SAT 90–96
[2019-02-10 05:23] LABS: Hematocrit 21.4 % (40-54); Hemoglobin 6.9 g/dl (13.0-16.5); Mean Corp Hgb Conc 32.2 g/gl (32-36); Mean Corpuscular Hgb 30.7 pg (27.0-32.0); Mean Corpuscular Volume 95.1 fL (80-94); Mean Platelet Vol. 9.3 fl (6.2-12.0); Platelet Count 183 K/mm3 (150-450); RBC Distribution Width CV 14.6 % (11.6-14.6); RBC Distribution Width SD 47.8 fl (35.1-43.9); Red Blood Count 2.25 M/mm3 (4.6-6.2); White Blood Count 13.9 K/mm3 (4.4-11.0)
[2019-02-10 05:27] LABS: Scan Indicated on CBC? Y/N NO
[2019-02-10 05:30] LABS: International Normalized Ratio 2.7; Prothrombin Time (Protime)PT. 29.1 SECONDS (11.7-14.9)
[2019-02-10 06:08] LABS: AST(SGOT) 22 U/L (15-37); Alanine Aminotransfer ALT/SGPT 24 U/L (16-61); Albumin, Serum 2.7 g/dL (3.2-5.0); Alkaline Phosphatase 54 U/L (45-117); Anion Gap 7 (5-15); BUN 18 mg/dL (7-18); BUN/Creat Ratio 19.4 RATIO (10-20); Calcium,Total 7.8 mg/dL (8.5-10.1); Chloride 109 mmol/L (98-107); Creatinine, Serum 0.93 mg/dL (0.70-1.30); EST Glomerular Filtration Rate 83 mL/min (>60); Est Glom Filt Rate - Afr Amer 101 mL/min (>60); Estimated Creatinine Clearance 60.27 ml/min; Globulin 2.6 g/dL (2.2-4.2); Glucose 134 mg/dL (74-106); Potassium 3.8 mmol/L (3.5-5.1); Protein, Total 5.3 g/dL (6.4-8.2); Sodium Level 143 mmol/L (136-145)
[2019-02-10] MEDS: Sucralfate 1 GM Tablet PO ×4 (06:30→21:55)
--- NOTE | 2019-02-10 07:46 | CASEMGMT ---
RN CM notified patient and his that patient's Healthcare POA and Healthcare LW are not on file at [facility]. Anastasia TREVIZO MSW
--- NOTE | 2019-02-10 07:55 | PCM.PN.SRG ---
Patient Problems: Active and Suspected Problems (Last Reviewed 10/14/18 @ 15:11 by Albert Mojica MD) GI bleed (Suspected) Acute blood loss anemia (Acute) Pneumonia (Suspected) Subjective: told hemoglobin dropped again told hemoglobin dropped again - Physical Exam Lungs: Clear to auscultation, Normal air movement Cardiovascular: Regular rate, No murmurs Abdomen: Bowel Sounds Present, Soft, Non Tender Vital Signs Temp Pulse Resp BP Pulse Ox 98.1 F 80 18 139/73 H 93 02/10/19 02:38 02/10/19 07:00 02/10/19 02:38 02/10/19 02:38 02/10/19 02:38 Oxygen Flow Rate (L/min) 2 Oxygen Delivery Method Nasal Cannula Weight: 83 kg Body Mass Index (BMI) 27.8 Orthostatic Vital Signs Start: 02/08/19 16:49 Freq: Status: Active Protocol: Activity Type Activity Date Activity User E-Sign Co-Sign Detail Recorded Client Recorded Date Recorded By Document 02/08/19 16:49 AMG [id number] 02/08/19 16:53 AMG 02/08/19 16:49 Orthostatic Vitals Standing -Blood Pressure (90/60-120/80) 116/60 -Extremity Use Left Arm -Pulse Rate (60-100) 88 Sitting -Blood Pressure (90/60-120/80) 97/61 -Extremity Use Left Arm -Pulse Rate (60-100) 93 Lying -Blood Pressure (90/60-120/80) 109/49 L -Extremity Use Left Arm -Pulse Rate (60-100) 78 Intake and Output for Last 24 Hours 02/08/19 02/09/19 02/10/19 23:59 23:59 23:59 Intake Total 304 / 5104 9638 / 9638 971 / 971 Output Total 500 / 500 Balance 304 / 5104 9638 / 9638 471 / 471 Microbiology Past 72 Hours 02/08/19 19:50 Respiratory Panel (PCR) - Final Mucosa - Nasopharyngeal 02/09/19 05:13 Stool Occult Blood ([facility]) - Final Stool Occult Blood Positive 02/08/19 17:35 Streptococcus pneumoniae Antigen (M - Final Urine, Clean Catch 02/08/19 17:35 Legionella Antigen - Final Urine, Clean Catch 02/08/19 15:45 Stool Occult Blood ([facility]) - Final Stool Laboratory Tests Past 24 Hrs 02/08/19 02/10/19 02/10/19 18:00 04:56 04:56 WBC 13.9 H RBC 2.25 L Hgb 6.9 L Hct 21.4 L MCV 95.1 H MCH 30.7 MCHC 32.2 RDW 14.6 RDW Differential 47.8 H Plt Count 183 MPV 9.3 PT INR Sodium 143 Potassium 3.8 Chloride 109 H Carbon Dioxide 27.0 Anion Gap 7 BUN 18 Creatinine 0.93 Estim Creat Clear Calc 60.27 Est GFR (MDRD) Af Amer 101 Est GFR (MDRD) Non-Af 83 BUN/Creatinine Ratio 19.4 Glucose 134 H Calcium 7.8 L Total Bilirubin 0.80 AST 22 ALT 24 Alkaline Phosphatase 54 Total Protein 5.3 L Albumin 2.7 L Globulin 2.6 Albumin/Globulin Ratio 1.0 Crossmatch See Detail 02/10/19 04:56 WBC RBC Hgb Hct MCV MCH MCHC RDW RDW Differential Plt Count MPV PT 29.1 H INR 2.7 Sodium Potassium Chloride Carbon Dioxide Anion Gap BUN Creatinine Estim Creat Clear Calc Est GFR (MDRD) Af Amer Est GFR (MDRD) Non-Af BUN/Creatinine Ratio Glucose Calcium Total Bilirubin AST ALT Alkaline Phosphatase Total Protein Albumin Globulin Albumin/Globulin Ratio Crossmatch Medical Necessity - Tobacco Use Smoking Status: Former smoker - Patient quit cigarette tobacco usage approximately 25 to 30 years prior. 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 Montalvo. I agree that its urgent to obtain upper and lower endoscopy that the patient's anticoagulation should not be completely reversed or decreased substantially due to his mechanical aortic prosthetic valve giving him an increased risk of stroke or other difficulties if anticoagulants is held. the patient's oxygen saturation is appropriate. Repeat chest x-ray yesterday morning demonstrated scarring without infiltrate Upper endoscopy demonstrated a moderate hiatal hernia with 3 small adherent clots, one of which started bleeding and was controlled with epinephrine. This is most likely marginal irritation/ulceration from motion over the diaphragmatic hiatus. I added Carafate to the PPI. Lower endoscopy demonstrated diverticulosis without any suspicious findings. Patient's hemoglobin decreased again this morning. They will transfuse 1 unit of packed red cells. Discussed with the patient that given the location of these superficial ulcerations there is increased risk to either cauterizing or clipping the area as opposed to just injection and medical treatment. For now I'm comfortable having the patient maintained on Carafate and PPI. If his hemoglobin chemistry drop, we will plan repeat upper endoscopy later today or tomorrow. Otherwise we'll plan for follow-up endoscopy next week.
[2019-02-10] MEDS: guaiFENesin 1,200 MG Tablet 1200 MG PO ×2 (08:43→21:55)
[2019-02-10] MEDS: Escitalopram Oxalate 10 MG Tablet PO (08:44)
[2019-02-10] MEDS: amLODIPine 10 MG Tablet PO (08:44)
[2019-02-10 09:52] LABS: Pathologist Review Reviewed
[2019-02-10 09:56] LABS: Pathologist Review Reviewed
[2019-02-10] MEDS: Furosemide 40 MG/4 ML Vial IV ×2 (11:45→16:29)
[2019-02-10] MEDS: 0.9% NaCl Peripheral Flush Adult/Peds IV ×3 (11:45→21:59)
--- NOTE | 2019-02-10 11:50 | DCINST_ITS ---
- Discharge Diagnoses Current Active Problems: Current Active and Chronic Problems (Last Reviewed 10/14/18 @ 15:11 by Albert Mojica MD) Acute blood loss anemia (Acute) You will use the following diet at home:: Cardiac Your food should be the consistency of: Regular Discharge Activity: May Not Drive Call your doctor if you observe: Fever of 101 or Higher, Numbness or Tingling, Inability to have a bowel movement, Shortness of breath, Dizziness, Fainting spells, Swelling in the ankles, Chest pain Additional Instructions: Need CBC and INR in 1-2 days as he has AVR and GI Bleed on coumadin Allergies/Adverse Reactions: Allergies No Known Allergies Allergy (Verified 02/08/19 13:57) Medications to take at Discharge magnesium oxide 400 mg (241.3 mg magnesium) tablet 400 mg PO BREAKFAST tab 10/01/17 vit A 7,160 unit-vit C 113 mg-vit E 100 ojvf-kehr-egsymd tablet 1 tab PO DAILY 04/16/18 furosemide 40 mg tablet 40 mg PO BID #180 tab 08/16/18 potassium chloride ER 20 mEq tablet,extended release 20 meq PO DAILY #90 tab 10/18/18 Amlodipine Besylate [Norvasc] 10 mg PO DAILY 02/08/19 Escitalopram Oxalate 10 mg PO DAILY 02/08/19 Hydrochlorothiazide [Hctz] 25 mg PO DAILY 02/08/19 Losartan Potassium 100 mg PO DAILY 02/08/19 Multivitamins,Therapeutic [Multivitamin] 1 tab PO DAILY 02/08/19 Pravastatin [Pravachol] 80 mg PO QHS 02/08/19 Aspirin E.C. [Ecotrin] 81 mg PO QHS #0 02/10/19 Guaifenesin [Mucinex] 1,200 mg PO BID #14 tab 02/10/19 Pantoprazole Sodium [Protonix] 40 mg PO BID #60 tab 02/10/19 Sucralfate [Carafate] 1 gm PO 1HR_ACHS #60 tab 02/10/19 Warfarin [Coumadin] 3 mg PO DAILY #30 tab 02/10/19 The following prescriptions were given: Sucralfate [Carafate] 1 gm PO 1HR_ACHS #60 tab Transmission Status: Received by [facility] Warfarin [Coumadin] 3 mg PO DAILY #30 tab Transmission Status: Received by [facility] 181 Guaifenesin [Mucinex] 1,200 mg PO BID #14 tab Transmission Status: Received by [facility]11 Pantoprazole Sodium [Protonix] 40 mg PO BID #60 tab Transmission Status: Received by [facility] Primary Care Physician: Fernando Cortez MD [Primary Care Provider] - Please follow up with your Primary Care Physician in: in 1-2 week Test Results: Test results from this visit will be discussed in further detail at your follow- up appointment, if applicable. Please Follow Up With: Albert Mojica MD When: in 2 weeks for AVR Please Follow Up With: Cornell Pleitez MD When: in 1-2 weeks
--- NOTE | 2019-02-10 16:29 | PCM.PN.HOSP ---
Patient Problems: Active and Suspected Problems (Last Reviewed 10/14/18 @ 15:11 by Albert Young MD) GI bleed (Suspected) Acute blood loss anemia (Acute) Pneumonia (Suspected) Subjective: Patient was supposed to be discharged but discharge was held because patient is still on 2 L of oxygen which is new for him. Patient was found to pulse ox 86% on room air after blood transfusion. Started on Lasix 40 mg IV twice daily. Patient was short of breath secondary to fluid overload but feels better after Lasix is started. Vitals/I&O's: Vital Signs Temp Pulse Resp BP Pulse Ox 97.8 F 82 16 128/62 H 93 02/10/19 15:40 02/10/19 15:40 02/10/19 15:40 02/10/19 15:40 02/10/19 15:40 Oxygen Flow Rate (L/min) 2 Oxygen Delivery Method Nasal Cannula Weight: 182 lb 15.739 oz Body Mass Index (BMI) 27.8 Orthostatic Vital Signs Start: 02/08/19 16:49 Freq: Status: Active Protocol: Activity Type Activity Date Activity User E-Sign Co-Sign Detail Recorded Client Recorded Date Recorded By Document 02/08/19 16:49 AMG [id number] 02/08/19 16:53 AMG 02/08/19 16:49 Orthostatic Vitals Standing -Blood Pressure (90/60-120/80) 116/60 -Extremity Use Left Arm -Pulse Rate (60-100) 88 Sitting -Blood Pressure (90/60-120/80) 97/61 -Extremity Use Left Arm -Pulse Rate (60-100) 93 Lying -Blood Pressure (90/60-120/80) 109/49 L -Extremity Use Left Arm -Pulse Rate (60-100) 78 Intake and Output for Last 24 Hours 02/08/19 02/09/19 02/10/19 23:59 23:59 23:59 Intake Total 304 / 5104 9638 / 9638 2220 / 2220 Output Total 500 / 500 Balance 304 / 5104 9638 / 9638 1720 / 1720 General: Alert, Oriented x3, Cooperative HEENT: Atraumatic, PERRLA, EOMI, Normocephalic Neck: Supple, No JVD, Negative Carotid Bruits Lungs: No rhonchi, No wheeze, No rales, Diminished - Air entry is diminished in bilateral lung bases. Cardiovascular: Regular rate, Regular Rhythm, Normal S1, Normal S2, Murmur - Mechanical aortic valve sound Abdomen: Bowel Sounds Present, Soft, Non Tender, Non-Distended Extremities: No edema, Capillary Refill Less than 3 Seconds Skin: No rashes, No breakdown Musculoskeletal: No Tenderness to Palpation of Joints or Extremities, Arthritic Changes Neurological: Cranial nerves II-XII grossly intact, Deep Tendon Reflexes 2+/4 and Symmetrical, Neuro grossly intact Psych/Mental Status: Normal Affect, Appropriate Microbiology Past 72 Hours 02/08/19 15:25 Blood Culture (Wb) - Anticubital Left Blood Culture - Preliminary No growth in 48 hours. 02/08/19 17:35 Urine, Clean Catch Urine Culture - Preliminary Culture exhibits no growth. 02/08/19 19:50 Mucosa - Nasopharyngeal Respiratory Panel (PCR) - Final 02/09/19 05:13 Stool Stool Occult Blood ([facility]) - Final Occult Blood Positive 02/08/19 17:35 Urine, Clean Catch Streptococcus pneumoniae Antigen (M - Final 02/08/19 17:35 Urine, Clean Catch Legionella Antigen - Final 02/08/19 15:45 Stool Stool Occult Blood ([facility]) - Final Laboratory Results 02/08/19 14:27: Diff Path Review Reviewed 02/08/19 18:00: Crossmatch See Detail 02/09/19 05:05: Diff Path Review Reviewed 02/10/19 04:56: Sodium 143, Potassium 3.8, Chloride 109 H, Carbon Dioxide 27.0, Anion Gap 7, BUN 18, Creatinine 0.93, Estim Creat Clear Calc 60.27, Est GFR (MDRD) Af Amer 101, Est GFR (MDRD) Non-Af 83, BUN/Creatinine Ratio 19.4, Glucose 134 H, Calcium 7.8 L, Total Bilirubin 0.80, AST 22, ALT 24, Alkaline Phosphatase 54, Total Protein 5.3 L, Albumin 2.7 L, Globulin 2.6, Albumin/Globulin Ratio 1.0 02/10/19 04:56: WBC 13.9 H, RBC 2.25 L, Hgb 6.9 L, Hct 21.4 L, MCV 95.1 H, MCH 30.7, MCHC 32.2, RDW 14.6, RDW Differential 47.8 H, Plt Count 183, MPV 9.3 02/10/19 04:56: PT 29.1 H, INR 2.7 02/10/19 13:10: Hgb 9.0 L, Hct 27.0 L Current Medications Acetaminophen (Tylenol) 650 mg PO Q6H PRN PRN PRN Reason: PAIN Hydrocodone Bitart/Acetaminophen ([place] 5mg-325mg) 1 - 2 tablet PO Q6H PRN PRN PRN Reason: MOD-SEVERE PAIN (4-10/10) Al Hydroxide/Mg Hydroxide (Mylanta Ii) 15 - 30 ml PO Q4H PRN PRN PRN Reason: INDIGESTION Albuterol Sulfate (Ventolin Aerosols) 2.5 mg INHALATION Q2H PRN PRN PRN Reason: dyspnea, wheezing Amlodipine Besylate (Norvasc) 10 mg PO DAILY [facility] Last Admin: 02/10/19 08:44 Dose: 10 mg Documented by: Escitalopram Oxalate (Lexapro) 10 mg PO DAILY [facility] Last Admin: 02/10/19 08:44 Dose: 10 mg Documented by: Furosemide (Lasix) 40 mg IV BID@1000,1800 [facility] Last Admin: 02/10/19 11:45 Dose: 40 mg Documented by: Guaifenesin (Mucinex) 1,200 mg PO BID [facility] Last Admin: 02/10/19 08:43 Dose: 1,200 mg Documented by: Hydralazine HCl (Apresoline Iv) 10 mg IV Q4H PRN PRN PRN Reason: SBP > 160 Pantoprazole Sodium 40 mg/ (Sodium Chloride) 110 mls @ 330 mls/hr IV Q12 [facility] Last Admin: 02/10/19 11:45 Dose: 330 mls/hr Documented by: Morphine Sulfate () 1 - 2 mg IV Q4H PRN PRN PRN Reason: PAIN Nitroglycerin (Nitrostat) 0.4 mg SUBLINGUAL Q5M PRN PRN Reason: CARDIAC/CHEST PAIN Ondansetron HCl (Zofran) 4 mg IV Q8H PRN PRN PRN Reason: NAUSEA/VOMITING Last Admin: 02/08/19 22:48 Dose: 4 mg Documented by: Pravastatin Sodium (Pravachol) 80 mg PO QHS [facility] Last Admin: 02/09/19 22:44 Dose: 80 mg Documented by: Sodium Chloride () 5 - 15 ml IV UD PRN PRN Reason: SALINE FLUSH Last Admin: 02/10/19 11:45 Dose: 10 ml Documented by: Sucralfate (Carafate) 1 gm PO 1HR_ACHS [facility] Last Admin: 02/10/19 11:45 Dose: 1 gm Documented by: Medical Necessity - Tobacco Use Smoking Status: Former smoker - Patient quit cigarette tobacco usage approximately 25 to 30 years prior. 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 1. Upper GI bleed - EGD shows moderate hiatus hernia with 3 small adherent clots. AP was injected. Patient on IV PPI twice daily and Carafate. Colonoscopy showed diverticulosis which is not new and nonbleeding.acute gastritis with hemorrhage on EGD. Received epi injection. Colonoscopy with Diverticulosis. Continue PPI and carafate. Hemoglobin dropped to 6.9 and patient was transfused 1 unit of PRBC on 02/10. Repeat H&H posttransfusion 9.0/27.0. 2. Chronic diastolic heart failure with fluid overload and acute respiratory insufficiency: Patient was put back on Lasix. Patient is diuresing well but is still mildly hypoxic and requires 2 L of oxygen. Discharge ordered. Incentive spirometry. 3. Pneumonia ruled out.- no cough, had increasing SOB at home worse with exertion, probably from anemia, complicated with heart failure. Patient does not have signs and symptoms of infection or pneumonia. No fever or chills. Respiratory panel is negative. Urinary antigens are negative. Chest x-ray shows bilateral lung bases atelectasis with left lung base worse than right. Antibiotics discontinued 4. Mechanical aortic valve -patient supposed to have INR 2.5-3.5 but in view of GI bleed with added clots, Dr. young recommended to keep INR around 2.7. INR is 2.7. Will resume Coumadin 3 mg daily. Follow-up INR and CBC tomorrow a.m. 5 INÉS - resolved. 5. Chronic Afib - stable. 6. HTN - stable. orthos negative. 7. Chronic diastolic CHF - bnp negative he does not appear volume overloaded DVT ppx: warfarin is therapeutic Code Visit Inpatient E&M: 95319 Subs Hosp L3
[2019-02-10] MEDS: Pravastatin 80 MG Tablet PO (21:55)
[2019-02-11] VITALS (10 sets, daily range): BP systolic 113–153; BP diastolic 54–70; PULSE 70–104; RESP 18–20; TEMP 36.7–36.8; O2SAT 84–94
--- NOTE | 2019-02-11 04:10 | NURSING ---
Pt only satting 88-90% on 2L NC. When encouraged to breathe in through nose and out through mouth, oxygen saturations increased.
[2019-02-11] MEDS: Sucralfate 1 GM Tablet PO ×2 (06:00→11:53)
[2019-02-11 06:16] LABS: Absolute Lymphocyte Count 1.65 X10^3/ul (0.83-4.51); Absolute Neutrophil Count 12.4 X10^3/uL (2.0-7.7); Basophil# 0.02 X10^3/uL; Basophil% 0.1 % (0-1); Eosinophil# 0.22 X10^3/uL; Eosinophils% 1.4 % (0-5); Hematocrit 25.5 % (40-54); Hemoglobin 8.2 g/dl (13.0-16.5); Lymphocyte # 1.65 X10^3/ul (4.0); Lymphocyte % 10.5 % (19-41); Mean Corp Hgb Conc 32.2 g/gl (32-36); Mean Corpuscular Hgb 29.8 pg (27.0-32.0); Mean Corpuscular Volume 92.7 fL (80-94); Mean Platelet Vol. 9.3 fl (6.2-12.0); Monocyte% 8.9 % (0-10); Neutrophil # 12.36 X10^3/uL (2.7-7.7); Neutrophil % 78.7 % (47-70); POSITIVE COUNT NO; POSITIVE DIFFERENTIAL NO; POSITIVE MORPHOLOGY NO; Platelet Count 212 K/mm3 (150-450); RBC Distribution Width CV 15.6 % (11.6-14.6); Red Blood Count 2.75 M/mm3 (4.6-6.2); White Blood Count 15.7 K/mm3 (4.4-11.0)
[2019-02-11 06:25] LABS: International Normalized Ratio 2.2; Prothrombin Time (Protime)PT. 24.6 SECONDS (11.7-14.9)
[2019-02-11] MEDS: Furosemide 40 MG/4 ML Vial IV (09:35)
[2019-02-11] MEDS: Escitalopram Oxalate 10 MG Tablet PO (09:36)
[2019-02-11] MEDS: amLODIPine 10 MG Tablet PO (09:36)
[2019-02-11] MEDS: 0.9% NaCl Peripheral Flush Adult/Peds IV ×2 (09:36→13:43)
[2019-02-11] MEDS: guaiFENesin 1,200 MG Tablet 1200 MG PO (09:36)
--- NOTE | 2019-02-11 09:57 | PCM.PN.SRG ---
Patient Problems: Active and Suspected Problems (Last Reviewed 10/14/18 @ 15:11 by Albert Mojica MD) GI bleed (Suspected) Acute blood loss anemia (Acute) Pneumonia (Suspected) Subjective: no complaints, no rectal bleeding - Physical Exam General: Alert, Oriented x3, Cooperative Lungs: Clear to auscultation, Normal air movement Cardiovascular: No murmurs, Irregular Rate, - - metallic valve Abdomen: Bowel Sounds Present, Soft, Non Tender Vital Signs Temp Pulse Resp BP Pulse Ox 98.1 F 88 18 148/62 H 93 02/11/19 09:15 02/11/19 09:15 02/11/19 09:15 02/11/19 09:15 02/11/19 09:15 Oxygen Flow Rate (L/min) 2 Oxygen Delivery Method Nasal Cannula Weight: 83 kg Body Mass Index (BMI) 27.8 Orthostatic Vital Signs Start: 02/08/19 16:49 Freq: Status: Active Protocol: Activity Type Activity Date Activity User E-Sign Co-Sign Detail Recorded Client Recorded Date Recorded By Document 02/11/19 05:22 [facility] [id number] 02/11/19 05:31 [facility] [place] 02/11/19 05:22 Orthostatic Vitals Standing -Blood Pressure (90/60-120/80) 153/70 H -Extremity Use Left Arm -Pulse Rate (60-100) 86 Sitting -Blood Pressure (90/60-120/80) 152/65 H -Extremity Use Left Arm -Pulse Rate (60-100) 104 H Lying -Blood Pressure (90/60-120/80) 113/54 L -Extremity Use Left Arm -Pulse Rate (60-100) 71 Intake and Output for Last 24 Hours 02/09/19 02/10/19 02/11/19 23:59 23:59 23:59 Intake Total 9638 / 9638 3499 / 3499 50 / 50 Output Total 3605 / 3605 350 / 350 Balance 9638 / 9638 -106 / -106 -300 / -300 Microbiology Past 72 Hours 02/08/19 17:35 Urine Culture - Final Urine, Clean Catch Culture exhibits no growth. 02/08/19 15:25 Blood Culture - Preliminary Blood Culture (Wb) - Anticubital Left No growth in 48 hours. 02/08/19 19:50 Respiratory Panel (PCR) - Final Mucosa - Nasopharyngeal 02/09/19 05:13 Stool Occult Blood ([facility]) - Final Stool Occult Blood Positive 02/08/19 17:35 Streptococcus pneumoniae Antigen (M - Final Urine, Clean Catch 02/08/19 17:35 Legionella Antigen - Final Urine, Clean Catch 02/08/19 15:45 Stool Occult Blood ([facility]) - Final Stool Laboratory Tests Past 24 Hrs 02/08/19 02/10/19 02/11/19 18:00 13:10 05:48 WBC 15.7 H RBC 2.75 L Hgb 9.0 L 8.2 L Hct 27.0 L 25.5 L MCV 92.7 MCH 29.8 MCHC 32.2 RDW 15.6 H RDW Differential 51.0 H Plt Count 212 MPV 9.3 Immature Gran % (Auto) 0.400 Neut % (Auto) 78.7 H Lymph % (Auto) 10.5 L [place] % (Auto) 8.9 Eos % (Auto) 1.4 Baso % (Auto) 0.1 Absolute Neuts (auto) 12.4 H Absolute Lymphs (auto) 1.65 Total Counted Not Reportable PT INR Crossmatch See Detail 02/11/19 05:48 WBC RBC Hgb Hct MCV MCH MCHC RDW RDW Differential Plt Count MPV Immature Gran % (Auto) Neut % (Auto) Lymph % (Auto) [place] % (Auto) Eos % (Auto) Baso % (Auto) Absolute Neuts (auto) Absolute Lymphs (auto) Total Counted PT 24.6 H INR 2.2 Crossmatch Medical Necessity - Tobacco Use Smoking Status: Former smoker - Patient quit cigarette tobacco usage approximately 25 to 30 years prior. 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 Montalvo. I agree that its urgent to obtain upper and lower endoscopy that the patient's anticoagulation should not be completely reversed or decreased substantially due to his mechanical aortic prosthetic valve giving him an increased risk of stroke or other difficulties if anticoagulants is held. the patient's oxygen saturation is appropriate. Repeat chest x-ray yesterday morning demonstrated scarring without infiltrate Upper endoscopy demonstrated a moderate hiatal hernia with 3 small adherent clots, one of which started bleeding and was controlled with epinephrine. This is most likely marginal irritation/ulceration from motion over the diaphragmatic hiatus. I added Carafate to the PPI. Lower endoscopy demonstrated diverticulosis without any suspicious findings. Patient's hemoglobin decreased slightly this morning. Discussed with the patient that given the location of these superficial ulcerations there is increased risk to either cauterizing or clipping the area as opposed to just injection and medical treatment. For now I'm comfortable having the patient maintained on Carafate and PPI. If his hemoglobin chemistry drop, we will plan repeat upper endoscopy later today or tomorrow. Otherwise we'll plan for follow-up endoscopy next week.
--- NOTE | 2019-02-11 10:33 | PCM.DC ---
- Discharge Diagnoses Current Active Problems: Current Active and Chronic Problems (Last Reviewed 10/14/18 @ 15:11 by Albert Mojica MD) Acute blood loss anemia (Acute) You will use the following diet at home:: Cardiac Discharge Activity: May Not Drive Call your doctor if you observe: Fever of 101 or Higher, Numbness or Tingling, Inability to have a bowel movement, Shortness of breath, Dizziness, Fainting spells, Swelling in the ankles, Chest pain Allergies/Adverse Reactions: Allergies No Known Allergies Allergy (Verified 02/08/19 13:57) Medications to take at Discharge magnesium oxide 400 mg (241.3 mg magnesium) tablet 400 mg PO BREAKFAST tab 10/01/17 vit A 7,160 unit-vit C 113 mg-vit E 100 dpie-dbqo-gpoprx tablet 1 tab PO DAILY 04/16/18 furosemide 40 mg tablet 40 mg PO BID #180 tab 08/16/18 potassium chloride ER 20 mEq tablet,extended release 20 meq PO DAILY #90 tab 10/18/18 Amlodipine Besylate [Norvasc] 10 mg PO DAILY 02/08/19 Escitalopram Oxalate 10 mg PO DAILY 02/08/19 Hydrochlorothiazide [Hctz] 25 mg PO DAILY 02/08/19 Losartan Potassium 100 mg PO DAILY 02/08/19 Multivitamins,Therapeutic [Multivitamin] 1 tab PO DAILY 02/08/19 Pravastatin [Pravachol] 80 mg PO QHS 02/08/19 Aspirin E.C. [Ecotrin] 81 mg PO QHS #0 02/10/19 Guaifenesin [Mucinex] 1,200 mg PO BID #14 tab 02/10/19 Pantoprazole Sodium [Protonix] 40 mg PO BID #60 tab 02/10/19 Sucralfate [Carafate] 1 gm PO 1HR_ACHS #60 tab 02/10/19 Warfarin [Coumadin] 3 mg PO DAILY #30 tab 02/10/19 The following prescriptions were given: Sucralfate [Carafate] 1 gm PO 1HR_ACHS #60 tab Transmission Status: [facility] Warfarin [Coumadin] 3 mg PO DAILY #30 tab Transmission Status: [facility] Guaifenesin [Mucinex] 1,200 mg PO BID #14 tab Transmission Status: Received by [facility] Pantoprazole Sodium [Protonix] 40 mg PO BID #60 tab Transmission Status: Received by [facility] Orders to be completed after discharge: CBC W/Diff, Automated Time Frame: 02/14/19, Facility: [facility], Location: Laboratory Prothrombin Time w/INR Time Frame: 02/14/19, Facility: [facility], Location: Laboratory Primary Care Physician: Fernando Cortez MD [Primary Care Provider] - Please follow up with your Primary Care Physician in: in 1-2 week Test Results: Test results from this visit will be discussed in further detail at your follow-up appointment, if applicable. Please Follow Up With: Albert Mojica MD When: in 2 weeks for AVR Please Follow Up With: Cornell Pleitez MD When: in 1-2 weeks Please Follow Up With: Fernando Cortez MD
--- NOTE | 2019-02-11 12:21 | CASEMGMT ---
RN CM Note. Pt qualifies for Home oxygen. [facility] [place], pt choice and is network with insurance. Clinical, script, oxygen testing faxed to [facility] [place]. -Call to Kelli @ [facility] [place]. Fax was received and delivery should arrive in next hour. Lloyd GOODSONN RN ACM
--- NOTE | 2019-02-11 13:00 | PCM.DC.SUM ---
Discharge Date and Diagnosis - Problem List Patient Problems: Active and Suspected Problems (Last Reviewed 10/14/18 @ 15:11 by Albert Young MD) GI bleed (Suspected) Acute blood loss anemia (Acute) Pneumonia (Suspected) Date of Admission: 02/08/19 Date of Discharge: 02/11/19 - Primary Discharge Diagnosis Active and Suspected Problems (Last Reviewed 10/14/18 @ 15:11 by Albert Young MD) GI bleed (Suspected) Acute blood loss anemia (Acute) Pneumonia (Suspected) - Secondary Discharge Diagnosis Chronic Problems (Last Reviewed 10/14/18 @ 15:11 by Albert Young MD) Essential (primary) hypertension (Chronic) 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 valve insufficiency (Chronic) Nonrheumatic mitral (valve) insufficiency (Chronic) retirement current use of anticoagulant (Chronic) Hyperlipidemia (Chronic) Atherosclerotic heart disease of [place] coronary artery without angina pectoris (Chronic) CABG x 2 SVG-D1 and SVG-OM w/ AVR using a [address] [employer] Mechanical Prosthesis 04/30/2001 H/O aortic valve replacement (Chronic 04/30/01) AVR using a [address] [employer] Mechanical Prosthesis retirement use of drug (Chronic) Anticoagulants Aortic valve stenosis, rheumatic (Chronic) History of radiofrequency ablation procedure for cardiac arrhythmia (Chronic) Chronic atrial fibrillation (Chronic) Chronic diastolic heart failure (Chronic) Hospital Course and Treatment Summary of Care Provided: [] The patient is a 83-year-old gentleman with multiple comorbidities admitted with upper GI bleed. 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 1. Upper GI bleed - EGD shows moderate hiatus hernia with 3 small adherent clots. AP was injected. Patient on IV PPI twice daily and Carafate. Colonoscopy showed diverticulosis which is not new and nonbleeding.acute gastritis with hemorrhage on EGD. Received epi injection. Colonoscopy with Diverticulosis. Continue PPI and carafate. Hemoglobin dropped to 6.9 and patient was transfused 1 unit of PRBC on 02/10. Posttransfusion H&H 9.0/27.0 but dropped down to 8.2/25.5. Discussed with Dr. Pleitez will discharge on PPI and Carafate and follow-up with him for repeat EGD in 1 week. 2. Chronic diastolic heart failure with fluid overload and acute respiratory insufficiency: Patient was put back on Lasix. Patient is diuresing well but is still mildly hypoxic and requires 2 L of oxygen. Incentive spirometry. Needs walking pulse oximetry and if he still needs oxygen will discharge home oxygen 3. Left lung base scarring/atelectasis with concern of LLL pneumonia: Patient has hypoxia, and requires 2 L of oxygen, leukocytosis, had increasing SOB at home worse with exertion, probably from anemia, complicated with heart failure or possible pneumonia. No fever or chills. Respiratory panel is negative. Urinary antigens are negative. Chest x-ray shows bilateral lung bases atelectasis/scarring with left lung base worse than right. Patient did not had fever or chills but WBC count went up from 13.9-15 0.7 thousand with left shift. Patient was put back on antibiotic Rocephin and Zithromax and discharged home for more days cefdinir. Patient needs home oxygen. Patient is ambulatory in home and in the community and requires home oxygen with portability. Advised to follow-up with Dr. Esteban/Dr. Valenzuela in pulmonary clinic in 3 to 4 weeks for PFT and sleep study. Mild respiratory insufficiency/hypoxia probably from heart failure with fluid overload, pneumonia, atelectasis and scarring. 4. Mechanical aortic valve -patient supposed to have INR 2.5-3.5 but in view of GI bleed with added clots, Dr. Young recommended to keep INR around 2.7. INR is 2.7 on 02/10 and 2.[address] Young AND will continue Coumadin 3 mg daily with follow-up INR CBC on Wednesday 02/14. 5 INÉS - resolved. 5. Chronic Afib - stable. 6. HTN - stable. orthos negative. 7. Chronic diastolic CHF - bnp negative he does not appear volume overloaded DVT ppx: warfarin is therapeutic Microbiology Past 72 Hours 02/08/19 17:35 Urine, Clean Catch Urine Culture - Final Culture exhibits no growth. 02/08/19 15:25 Blood Culture (Wb) - Anticubital Left Blood Culture - Preliminary No growth in 48 hours. 02/08/19 19:50 Mucosa - Nasopharyngeal Respiratory Panel (PCR) - Final 02/09/19 05:13 Stool Stool Occult Blood ([facility]) - Final Occult Blood Positive 02/08/19 17:35 Urine, Clean Catch Streptococcus pneumoniae Antigen (M - Final 02/08/19 17:35 Urine, Clean Catch Legionella Antigen - Final 02/08/19 15:45 Stool Stool Occult Blood ([facility]) - Final Laboratory Results 02/08/19 18:00: Crossmatch See Detail 02/10/19 13:10: Hgb 9.0 L, Hct 27.0 L 02/11/19 05:48: WBC 15.7 H, RBC 2.75 L, Hgb 8.2 L, Hct 25.5 L, MCV 92.7, MCH 29.8, MCHC 32.2, RDW 15.6 H, RDW Differential 51.0 H, Plt Count 212, MPV 9.3, Immature Gran % (Auto) 0.400, Neut % (Auto) 78.7 H, Lymph % (Auto) 10.5 L, Jessamine % (Auto) 8.9, Eos % (Auto) 1.4, Baso % (Auto) 0.1, Absolute Neuts (auto) 12.4 H, Absolute Lymphs (auto) 1.65, Total Counted Not Reportable 02/11/19 05:48: PT 24.6 H, INR 2.2 Patient Problems: Active and Suspected Problems (Last Reviewed 10/14/18 @ 15:11 by Albert Young MD) GI bleed (Suspected) Acute blood loss anemia (Acute) Pneumonia (Suspected) Subjective: Seen and examined. Patient does not have dizziness, lightheadedness. Patient still on 2 L of oxygen. No cough or shortness of breath. Patient had no further rectal bleed. H&H dropped to 8.2. Discussed with Dr. Pleitez and Dr. young. - Physical Exam General: Alert, Oriented x3, Cooperative HEENT: Atraumatic, PERRLA, EOMI, Normocephalic Oral: Moist Mucosa Neck: Supple, No JVD, Negative Carotid Bruits Lungs: Clear to auscultation, Normal air movement Cardiovascular: Regular rate, Normal S1, Normal S2, Murmur - aVR. Mechanical aortic valve click Abdomen: Bowel Sounds Present, Soft, Non Tender, Non-Distended Extremities: No edema, Capillary Refill Less than 3 Seconds Skin: No rashes, No breakdown Musculoskeletal: No Tenderness to Palpation of Joints or Extremities, Arthritic Changes Neurological: Cranial nerves II-XII grossly intact, Deep Tendon Reflexes 2+/4 and Symmetrical, Neuro grossly intact Psych/Mental Status: Normal Affect, Appropriate Vital Signs Temp Pulse Resp BP Pulse Ox 97.6 F L 80 14 131/85 H 93 02/10/19 11:42 02/10/19 11:42 02/10/19 11:42 02/10/19 11:42 02/10/19 11:42 Oxygen Flow Rate (L/min) 2 Oxygen Delivery Method Nasal Cannula Weight: 182 lb 15.739 oz Body Mass Index (BMI) 27.8 Orthostatic Vital Signs Start: 02/08/19 16:49 Freq: Status: Active Protocol: Activity Type Activity Date Activity User E-Sign Co-Sign Detail Recorded Client Recorded Date Recorded By Document 02/08/19 16:49 AMG [id number] 02/08/19 16:53 AMG 02/08/19 16:49 Orthostatic Vitals Standing -Blood Pressure (90/60-120/80) 116/60 -Extremity Use Left Arm -Pulse Rate (60-100) 88 Sitting -Blood Pressure (90/60-120/80) 97/61 -Extremity Use Left Arm -Pulse Rate (60-100) 93 Lying -Blood Pressure (90/60-120/80) 109/49 L -Extremity Use Left Arm -Pulse Rate (60-100) 78 Intake and Output for Last 24 Hours 02/08/19 02/09/19 02/10/19 23:59 23:59 23:59 Intake Total 304 / 5104 9638 / 9638 2220 / 2220 Output Total 500 / 500 Balance 304 / 5104 9638 / 9638 1720 / 1720 Microbiology Past 72 Hours 02/08/19 15:25 Blood Culture - Preliminary Blood Culture (Wb) - Anticubital Left No growth in 48 hours. 02/08/19 17:35 Urine Culture - Preliminary Urine, Clean Catch Culture exhibits no growth. 02/08/19 19:50 Respiratory Panel (PCR) - Final Mucosa - Nasopharyngeal 02/09/19 05:13 Stool Occult Blood ([facility]) - Final Stool Occult Blood Positive 02/08/19 17:35 Streptococcus pneumoniae Antigen (M - Final Urine, Clean Catch 02/08/19 17:35 Legionella Antigen - Final Urine, Clean Catch 02/08/19 15:45 Stool Occult Blood ([facility]) - Final Stool Laboratory Tests Past 24 Hrs 02/08/19 02/08/19 02/09/19 14:27 18:00 05:05 WBC RBC Hgb Hct MCV MCH MCHC RDW RDW Differential Plt Count MPV Diff Path Review Reviewed Reviewed PT INR Sodium Potassium Chloride Carbon Dioxide Anion Gap BUN Creatinine Estim Creat Clear Calc Est GFR (MDRD) Af Amer Est GFR (MDRD) Non-Af BUN/Creatinine Ratio Glucose Calcium Total Bilirubin AST ALT Alkaline Phosphatase Total Protein Albumin Globulin Albumin/Globulin Ratio Crossmatch See Detail 02/10/19 02/10/19 02/10/19 04:56 04:56 04:56 WBC 13.9 H RBC 2.25 L Hgb 6.9 L Hct 21.4 L MCV 95.1 H MCH 30.7 MCHC 32.2 RDW 14.6 RDW Differential 47.8 H Plt Count 183 MPV 9.3 Diff Path Review PT 29.1 H INR 2.7 Sodium 143 Potassium 3.8 Chloride 109 H Carbon Dioxide 27.0 Anion Gap 7 BUN 18 Creatinine 0.93 Estim Creat Clear Calc 60.27 Est GFR (MDRD) Af Amer 101 Est GFR (MDRD) Non-Af 83 BUN/Creatinine Ratio 19.4 Glucose 134 H Calcium 7.8 L Total Bilirubin 0.80 AST 22 ALT 24 Alkaline Phosphatase 54 Total Protein 5.3 L Albumin 2.7 L Globulin 2.6 Albumin/Globulin Ratio 1.0 Crossmatch 02/10/19 13:10 WBC RBC Hgb 9.0 L Hct 27.0 L MCV MCH MCHC RDW RDW Differential Plt Count MPV Diff Path Review PT INR Sodium Potassium Chloride Carbon Dioxide Anion Gap BUN Creatinine Estim Creat Clear Calc Est GFR (MDRD) Af Amer Est GFR (MDRD) Non-Af BUN/Creatinine Ratio Glucose Calcium Total Bilirubin AST ALT Alkaline Phosphatase Total Protein Albumin Globulin Albumin/Globulin Ratio Crossmatch Discharge Activity: May Not Drive Call your doctor if you observe: Fever of 101 or Higher, Numbness or Tingling, Inability to have a bowel movement, Shortness of breath, Dizziness, Fainting spells, Swelling in the ankles, Chest pain Home Medications: Medications to take at Discharge magnesium oxide 400 mg (241.3 mg magnesium) tablet 400 mg PO BREAKFAST tab 10/01/17 vit A 7,160 unit-vit C 113 mg-vit E 100 [id number]-mydz-[id number] tablet 1 tab PO DAILY 04/16/18 furosemide 40 mg tablet 40 mg PO BID #180 tab 08/16/18 potassium chloride ER 20 mEq tablet,extended release 20 meq PO DAILY #90 tab 10/18/18 Amlodipine Besylate [Norvasc] 10 mg PO DAILY 02/08/19 Escitalopram Oxalate 10 mg PO DAILY 02/08/19 Hydrochlorothiazide [Hctz] 25 mg PO DAILY 02/08/19 Losartan Potassium 100 mg PO DAILY 02/08/19 Multivitamins,Therapeutic [Multivitamin] 1 tab PO DAILY 02/08/19 Pravastatin [Pravachol] 80 mg PO QHS 02/08/19 Aspirin E.C. [Ecotrin] 81 mg PO QHS #0 02/10/19 Guaifenesin [Mucinex] 1,200 mg PO BID #14 tab 02/10/19 Pantoprazole Sodium [Protonix] 40 mg PO BID #60 tab 02/10/19 Sucralfate [Carafate] 1 gm PO 1HR_ACHS #60 tab 02/10/19 Warfarin [Coumadin] 3 mg PO DAILY #30 tab 02/10/19 Cefdinir 300 mg PO BID #8 cap 02/11/19 Following Prescrptions Were Given to Patient: Sucralfate [Carafate] 1 gm PO 1HR_ACHS #60 tab Transmission Status: [id number] Cefdinir 300 mg PO BID #8 cap Transmission Status: Pending to [facility] Warfarin [Coumadin] 3 mg PO DAILY #30 tab Transmission Status: [facility] Guaifenesin [Mucinex] 1,200 mg PO BID #14 tab Transmission Status: [facility] Pantoprazole Sodium [Protonix] 40 mg PO BID #60 tab Transmission Status: [facility] Other Amb Orders: CBC W/Diff, Automated Time Frame: 02/14/19, Facility: [facility], Location: Laboratory Prothrombin Time w/INR Time Frame: 02/14/19, Facility: [facility], Location: Laboratory Primary Care Physician: Fernando Cortez MD [Primary Care Provider] - Please follow up with your Primary Care Physician in: in 1-2 week Please Follow Up With: Albert Young MD When: in 2 weeks for AVR Please Follow Up With: Cornell Pleitez MD When: in 1-2 weeks Medical Necessity - Tobacco Use Smoking Status: Former smoker - Patient quit cigarette tobacco usage approximately 25 to 30 years prior. Tobacco Use: Non-smoker Meaningful Use Info Meaningful Use Diagnoses (Choose all that apply): None applicable Code Visit Inpatient E&M: 62818 Disch Hosp
[2019-02-11] MEDS: Ceftriaxone 1 GM/50 ML BAG IV (13:43)
[2019-02-11] MEDS: Azithromycin 250 MG Tablet 500 MG PO (13:43)
--- NOTE | 2019-02-14 13:27 | CASEMGMT ---
SHELLY RIGGS DC PHONE CALL DC DATE: 02/11/19 DC Disposition: Home LACE/STRATA: 11 Intro role of CM to patient via phone. Pt states he is doing well, had bloodwork ordered on dc drawn. F/U appt with physician made. Pt did not have questions re: medications, or instructions. Pt stated his care @ [facility] was excellent. No care improvement instructions given. Lloyd MOE RN ACM
== END 2019-02-11 16:01 | disposition home or self-care (01) | DRG 378 ==
LOC: PCU 02-09 09:20 → ED 02-10 10:24 → PCU 02-10 10:24
PROVIDERS: Physician Assistant; Surgery; Admitting Provider Family Medicine; Emergency Provider Emergency Medicine; Family Provider Family Medicine; PCP Family Medicine; Referring Provider Family Medicine; Visit Provider Internal Medicine
PROC: 0DJD8ZZ Inspection of Lower Intestinal Tract, Via Natural or Artificial Opening Endoscopic (ICD-10-PCS; CPT 45378; principal; 2019-02-09 10:55)
DX: K29.01 Acute gastritis with bleeding (principal); N17.9 Acute kidney failure, unspecified; D62 Acute posthemorrhagic anemia; I50.32 Chronic diastolic (congestive) heart failure; J98.11 Atelectasis; I11.0 Hypertensive heart disease with heart failure; I48.2 Chronic atrial fibrillation; K44.9 Diaphragmatic hernia without obstruction or gangrene; K57.30 Diverticulosis of large intestine without perforation or abscess without bleeding; I36.1 Nonrheumatic tricuspid (valve) insufficiency; I27.21 Secondary pulmonary arterial hypertension; E78.5 Hyperlipidemia, unspecified; I25.10 Atherosclerotic heart disease of native coronary artery without angina pectoris; E87.70 Fluid overload, unspecified; Z87.891 Personal history of nicotine dependence; Z95.2 Presence of prosthetic heart valve; Z79.01 Long term (current) use of anticoagulants; Z95.1 Presence of aortocoronary bypass graft; R79.1 Abnormal coagulation profile
CPT/HCPCS: 36415; 70450; 71045; 71046; 80048; 80053; 81001; 82274; 83540; 83550; 83605; 83880; 84484; 85014; 85018; 85025; 85027; 85610; 86850; 86900; 86920; 87040; 87086; 87449; 87633; 88305; 88342; 93005; 94667; 94668; 99285; J7030; P9016; A4216; J1940; J2405

== ENCOUNTER 2019-02-18 12:30 | Outpatient (RCR) | payer MEDICARE, SELFPAY ==
[2019-02-09 10:28] VITALS: BMI 27.8
[2019-02-12 10:29] LABS: Absolute Lymphocyte Count 1.23 X10^3/ul (0.83-4.51); Absolute Neutrophil Count 13.6 X10^3/uL (2.0-7.7); Basophil# 0.04 X10^3/uL; Basophil% 0.2 % (0-1); Eosinophils% 1.2 % (0-5); Hematocrit 25.3 % (40-54); Hemoglobin 8.2 g/dl (13.0-16.5); Lymphocyte # 1.23 X10^3/ul (4.0); Lymphocyte % 7.5 % (19-41); Mean Corp Hgb Conc 32.4 g/gl (32-36); Mean Corpuscular Hgb 30.3 pg (27.0-32.0); Mean Corpuscular Volume 93.4 fL (80-94); Mean Platelet Vol. 9.1 fl (6.2-12.0); Monocyte# 1.34 X10^3/uL; Monocyte% 8.1 % (0-10); Neutrophil % 82.6 % (47-70); Platelet Count 264 K/mm3 (150-450); RBC Distribution Width CV 15.5 % (11.6-14.6); RBC Distribution Width SD 51.3 fl (35.1-43.9); Red Blood Count 2.71 M/mm3 (4.6-6.2); White Blood Count 16.5 K/mm3 (4.4-11.0)
[2019-02-12 10:31] LABS: POSITIVE COUNT NO; POSITIVE DIFFERENTIAL NO; POSITIVE MORPHOLOGY NO
[2019-02-12 10:32] LABS: International Normalized Ratio 1.8
[2019-02-12 10:45] LABS: Uric Acid 7.4 mg/dL (3.5-7.2)
[2019-02-18 13:49] LABS: Hematocrit 28.9 % (40-54); Mean Corp Hgb Conc 31.1 g/gl (32-36); Mean Corpuscular Volume 96.3 fL (80-94); Mean Platelet Vol. 8.9 fl (6.2-12.0); Platelet Count 394 K/mm3 (150-450); RBC Distribution Width CV 16.3 % (11.6-14.6); RBC Distribution Width SD 54.9 fl (35.1-43.9); White Blood Count 10.6 K/mm3 (4.4-11.0)
[2019-02-18 13:50] LABS: Scan Indicated on CBC? Y/N NO
[2019-02-18 13:56] LABS: International Normalized Ratio 2.1; Prothrombin Time (Protime)PT. 23.6 SECONDS (11.7-14.9)
[2019-02-18 13:58] LABS: Anion Gap 2 (5-15); BUN 21 mg/dL (7-18); BUN/Creat Ratio 19.3 RATIO (10-20); Calcium,Total 8.8 mg/dL (8.5-10.1); Chloride 106 mmol/L (98-107); Creatinine, Serum 1.09 mg/dL (0.70-1.30); EST Glomerular Filtration Rate 69 mL/min (>60); Est Glom Filt Rate - Afr Amer 84 mL/min (>60); Glucose 104 mg/dL (74-106); Potassium 3.9 mmol/L (3.5-5.1); Sodium Level 139 mmol/L (136-145)
== END 2019-02-18 13:00 | disposition home or self-care (01) ==
LOC: MTLAB 12:30
PROVIDERS: Internal Medicine; Family Provider Family Medicine; PCP Family Medicine; Referring Provider Internal Medicine Cardiovascular Disease; Visit Provider Internal Medicine Cardiovascular Disease
DX: Z79.01 Long term (current) use of anticoagulants (principal); R79.89 Other specified abnormal findings of blood chemistry; M10.9 Gout, unspecified; K92.2 Gastrointestinal hemorrhage, unspecified; E55.9 Vitamin D deficiency, unspecified
CPT/HCPCS: 36415; 80048; 82306; 84550; 85025; 85027; 85610

== ENCOUNTER 2019-03-23 15:40 | Outpatient (RCR) | payer MEDICARE, SELFPAY ==
[2019-02-09 10:28] VITALS: BMI 27.8
[2019-02-23 11:35] LABS: Prothrombin Time Fingerstick 25.3 SEC (11.9-14.4)
[2019-03-01 10:05] LABS: Prothrombin Time Fingerstick 18.9 SEC (11.9-14.4)
[2019-03-15 11:56] LABS: Prothrombin Time Fingerstick 26.4 SEC (11.9-14.4)
[2019-03-23 16:10] LABS: Prothrombin Time Fingerstick 32.6 SEC (11.9-14.4)
== END 2019-03-23 17:18 | disposition home or self-care (01) ==
LOC: LAB 15:40
PROVIDERS: Family Provider Family Medicine; PCP Family Medicine; Referring Provider Internal Medicine Cardiovascular Disease; Visit Provider Internal Medicine Cardiovascular Disease
DX: I48.2 Chronic atrial fibrillation (principal); Z79.01 Long term (current) use of anticoagulants
CPT/HCPCS: 36416; 85610

== ENCOUNTER 2019-06-21 09:10 | Outpatient (RCR) | payer MEDICARE, SELFPAY ==
[2019-02-25 08:19] VITALS: BMI 27.6
[2019-06-21 10:46] LABS: Prothrombin Time (Protime)PT. 36.4 SECONDS (11.7-14.9)
[2019-06-21 10:55] LABS: International Normalized Ratio 3.6
[2019-06-21 13:48] LABS: Prothrombin Time Fingerstick 42.1 SEC (11.9-14.4)
== END 2019-06-21 18:00 | disposition home or self-care (01) ==
LOC: LAB 09:10
PROVIDERS: Family Provider Family Medicine; PCP Family Medicine; Referring Provider Internal Medicine Cardiovascular Disease; Visit Provider Internal Medicine Cardiovascular Disease
DX: Z79.01 Long term (current) use of anticoagulants (principal); Z95.2 Presence of prosthetic heart valve
CPT/HCPCS: 36416; 85610

== ENCOUNTER 2019-07-29 09:31 | Outpatient (RCR) | payer MEDICARE, SELFPAY ==
[2019-02-25 08:19] VITALS: BMI 27.6
[2019-07-29 10:33] LABS: International Normalized Ratio 3.9; Prothrombin Time (Protime)PT. 38.4 SECONDS (11.7-14.9)
== END 2019-07-29 18:00 | disposition home or self-care (01) ==
LOC: LAB 09:31
PROVIDERS: Family Provider Family Medicine; PCP Family Medicine; Referring Provider Internal Medicine Cardiovascular Disease; Visit Provider Internal Medicine Cardiovascular Disease
DX: Z79.01 Long term (current) use of anticoagulants (principal); Z95.2 Presence of prosthetic heart valve
CPT/HCPCS: 36415; 36416; 85610

== ENCOUNTER 2019-09-20 12:34 | Outpatient (RCR) | payer MEDICARE, SELFPAY ==
[2019-08-23 09:18] VITALS: BMI 28.5
== END 2019-09-20 18:00 | disposition home or self-care (01) ==
LOC: LAB 12:34
PROVIDERS: Family Provider Family Medicine; PCP Family Medicine; Referring Provider Internal Medicine Cardiovascular Disease; Visit Provider Internal Medicine Cardiovascular Disease
DX: Z79.01 Long term (current) use of anticoagulants (principal); Z95.2 Presence of prosthetic heart valve
CPT/HCPCS: 36416; 85610

== ENCOUNTER 2019-10-03 14:49 | Observation (INO) | payer MEDICARE, SELFPAY ==
[2019-08-23 09:18] VITALS: BMI 28.5
[2019-10-03] VITALS (11 sets, daily range): BP systolic 133–152; BP diastolic 55–76; PULSE 62–86; RESP 14–20; TEMP 36.5–36.7; O2SAT 86–98; BMI 28.5; BMI 28.7
--- NOTE | 2019-10-03 15:21 | EKG12_ITS ---
Test Reason : SOB Blood Pressure : / mmHG Vent. Rate : 075 BPM Atrial Rate : 085 BPM P-R Int : 000 ms QRS Dur : 086 ms QT Int : 430 ms P-R-T Axes : 000 -28 049 degrees QTc Int : 480 ms Atrial fibrillation Cannot rule out Inferior infarct , age undetermined Abnormal ECG Confirmed by MARU WAGONER, RUSSELL ([id number]), legal editor KAITLYN SMALLS ([id number]) on 10/05/2019 9:50:58 AM Referred By: DIONTE Confirmed By:RUSSELL MAHONEY MD
--- NOTE | 2019-10-03 15:25 | ED.VISSUMM ---
- ER Visit Summary Date of Service: 10/03/19 Chief Complaint: Shortness of breath History of Present Illness: The patient is a 83 M with shortness of breath. Symptoms have been gradually getting worse over the past 3 weeks. Worse with exertion. Nothing seemed to bring these on. He had similar symptoms in the past with a GI bleed. He has not noticed any change in his stools. He does take Coumadin. He has a history of atrial fibrillation and aortic valve replacement. Despite a prior ablation, he is in atrial fibrillation all the time. He also has a history of pulmonary hypertension, coronary disease with CABG, hypertension, CHF, and hyperlipidemia. Patient has a cough with sputum. Denies hemoptysis. He has a runny nose as well. Denies fevers. Physical Examination: Afebrile and vital signs unremarkable. Heart is irregularly irregular. Lungs are clear. Abdomen soft. Extremities nontender with no edema. Skin unremarkable. No acute distress. Test Results: EKG, labs, chest x-ray pending. Emergency Department Course and Treatment: Patient was placed on a monitor. In triage, he was 94% on room air, however in the exam room he was 85% on room air. He appeared in no acute distress. He was placed on a nasal cannula and his oxygen improved to 92%. EKG, labs, chest x-ray pending. Patient will likely need admission for further care. EKG showed sinus rhythm at a rate of 75. No sign of ischemia or infarction pattern. Troponin normal. Hemoglobin 12.7, improved from previous. INR 3.3. He has no evidence of bleeding. BMP unremarkable. BNP only 126. This does not appear to be consistent with ACS or CHF. I have low suspicion for PE. He is therapeutic on his Coumadin. He does have some infectious symptoms including sputum and he is a previous smoker. We will treat with DuoNeb, Solu-Medrol, and doxycycline. Because he is hypoxic and requiring nasal cannula, will call the hospitalist for admission. Treatment Plan: As above Disposition: Admission Impression: 1. Bronchitis 2. Hypoxia This note was generated with Spectropathation software. It may contain incorrect words, spelling, and punctuation that were not noted in review of the chart prior to signing ED Disposition - Plan for ED Patient: Referrals: Fernando Cortez MD [Primary Care Provider] -
--- NOTE | 2019-10-03 15:40 | RAD_ITS ---
STUDY: X-RAY CHEST REASON FOR EXAM: Male, 83 years old. CHEST PAIN TECHNIQUE: Single AP portable view of the chest. COMPARISON: Comparison is made with prior examination dated February 09, 2019. FINDINGS: EKG electrodes are seen. Stable mild degree of increased interstitial markings suggestive of a bibasilar scarring. There is no demonstrated pleural abnormality. Sternal cerclage wires and vascular clips are present from a prior sternotomy and coronary artery bypass graft procedure (CABG). Normal mediastinum and wendy. Normal visualized pulmonary arteries. There is atherosclerotic calcification of the aortic arch with tortuosity. There are diffuse degenerative changes of the visualized thoracic spine. Normal visualized ribs, clavicles, and shoulders. There is no demonstrated abnormality of the visualized soft tissue structures of the upper abdomen. RAD/Chest 1 View (Portable) IMPRESSION: Stable increased markings at the lung bases suggestive of scarring. Electronically Signed: Skyler Dhaliwal, at 15:54 EST , Service support ,
[2019-10-03 15:52] LABS: Absolute Lymphocyte Count 1.57 X10^3/uL (0.83-4.51); Eosinophil# 0.22 X10^3/uL; Eosinophils% 2.2 % (0-5); Hematocrit 38.9 % (40-54); Hemoglobin 12.7 g/dL (13.0-16.5); Lymphocyte # 1.57 X10^3/ul (4.0); Lymphocyte % 15.8 % (19-41); Mean Corp Hgb Conc 32.6 g/dL (32-36); Mean Corpuscular Hgb 29.1 pg (27.0-32.0); Mean Corpuscular Volume 89.2 fL (80-94); Mean Platelet Vol. 8.6 fl (6.2-12.0); Monocyte% 10.1 % (0-10); NRBC Flagged by Analyzer 0 % (0-5); Neutrophil % 70.3 % (47-70); Platelet Count 295 K/mm3 (150-450); RBC Distribution Width CV 15.9 % (11.6-14.6); RBC Distribution Width SD 51.7 fl (35.1-43.9); Red Blood Count 4.36 M/mm3 (4.6-6.2)
[2019-10-03 16:07] LABS: BUN 16 mg/dL (7-18); Creatinine, Serum 1.13 mg/dL (0.70-1.30); Glucose 101 mg/dL (74-106)
[2019-10-03 16:08] LABS: Anion Gap 4 (5-15); BUN/Creat Ratio 14.2 RATIO (10-20); Calcium,Total 9.1 mg/dL (8.5-10.1); Chloride 108 mmol/L (98-107); EST Glomerular Filtration Rate 66 mL/min (>60); Est Glom Filt Rate - Afr Amer 80 mL/min (>60); Potassium 3.4 mmol/L (3.5-5.1); Sodium Level 141 mmol/L (136-145)
[2019-10-03 16:14] LABS: International Normalized Ratio 3.3; Prothrombin Time (Protime)PT. 34.1 SECONDS (11.7-14.9)
[2019-10-03 16:15] LABS: Partial Thromboplast Time 47.2 Seconds (24.1-36.2)
[2019-10-03 16:22] LABS: BNP,B-Type NATRIURETIC PEPTIDE 126.6 pg/mL (0-100)
[2019-10-03] MEDS: Ipratropium/Albuterol Sulfate 3 ML AMPUL.NEB INHALATION ×3 (16:56→23:17)
[2019-10-03] MEDS: MethylPREDNISolone 125 MG/2 ML Vial IV (16:58)
--- NOTE | 2019-10-03 16:59 | HP.PCM_ITS ---
History of Present Illness Date of Admission: 10/03/19 Chief Complaint: shortness of breath The patient is a 83 year old M with a past medical history as outlined. He was admitted through the ED on 10/03/2019 with a complaint of shortness of breath. Symptoms have progressively been getting worse over the past 3 weeks and worsened with exertion. Patient states he was playing tennis today and realized he was acutely short of breath so he went see his PCP. He was found to be saturating in the 70s. He does complain of nasal congestion and a cough over the last few weeks. He denies any fever or chills, nausea vomiting or palpitations. He does have a history of A. fib and has had ablation in the past. Patient states he has similar symptoms in the past year and was found to have GI bleed due to gastritis after he had an EGD and colonoscopy for the shortness of breath. He denies any history of DVT or PE and denies any history of long distance travel. He is on Coumadin for the A. fib and his INR was 3.3. On admission in the ED, vitals were stable and he was saturating at 96% on 2 L of oxygen. Of note, he is not on oxygen at home. Chemistry was significant for potassium of 3.4 and BNP was 126 with initial troponin being negative. CBC showed hemoglobin of 12.7 with WBC of 10. Chest x-ray showed no acute cardiopulmonary process and showed stable increased markings at the lung bases suggestive of scarring. He is been admitted to be managed for hypoxia and possible upper respiratory tract infection. 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 (Chronic 04/30/01) AVR using a [address] [employer] Mechanical Prosthesis Chronic atrial fibrillation (Chronic) Secondary pulmonary arterial hypertension (Chronic) Essential (primary) hypertension (Chronic) Chronic diastolic heart failure (Chronic) Hyperlipidemia (Chronic) [employer] current use of anticoagulant (Chronic) Medical History: Medical History (Last Reviewed 08/23/19 @ 14:34 by Albert Mojica MD) Atherosclerosis of coronary artery of [place] heart with angina pectoris (Chronic) I25.119 CABG x 2 SVG-D1 and SVG-OM w/ AVR using a [address] [employer] Mechanical Prosthesis 04/30/2001 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) I35.2 Chronic atrial fibrillation (Chronic) I48.2 Secondary pulmonary arterial hypertension (Chronic) I27.21 Essential (primary) hypertension (Chronic) I10 Chronic diastolic heart failure (Chronic) I50.32 Hyperlipidemia (Chronic) E78.5 skilled nursing current use of anticoagulant (Chronic) Z79.01 Acute gastritis with hemorrhage (Resolved) Onset Date: 02/10/19 K29.01 Non-rheumatic tricuspid valve insufficiency I36.1 Nonrheumatic mitral (valve) insufficiency I34.0 Obstructive sleep apnea G47.33 Shortness of breath R06.02 Acute blood loss anemia Onset Date: 02/10/19 D62 Pneumonia (Resolved) J18.9 Hypokalemia (Inactive) E87.6 Localized edema (Inactive) R60.0 Allergies No Known Allergies Allergy (Verified 10/03/19 14:53) Home Medications: Ambulatory Orders Medication Instructions Recorded magnesium oxide 400 mg (241.3 mg 400 mg PO BREAKFAST tab 10/01/17 magnesium) tablet vit A 7,160 unit-vit C 113 mg-vit 1 tab PO DAILY 04/16/18 E 100 [id number] tablet Escitalopram Oxalate 10 mg PO DAILY 02/08/19 losartan 100 mg tablet 100 mg PO DAILY #90 tab 06/21/19 potassium chloride 20 mEq 20 meq PO DAILY #90 tab 08/18/19 tablet,extended release warfarin 4 mg tablet 4 mg PO DAILY #90 tab 08/23/19 Amlodipine Besylate 10 mg PO DAILY 10/03/19 Cholecalciferol (Vitamin D3) 125 mcg PO DAILY 10/03/19 [Vitamin D3] Furosemide 40 mg PO BID 10/03/19 Guaifenesin [Mucinex] 1,200 mg PO QHS 10/03/19 Pravastatin Sodium 80 mg PO DAILY 10/03/19 Surgical History: Surgical History (Last Reviewed 08/23/19 @ 14:34 by Albert Mojica MD) H/O coronary artery bypass surgery (Resolved) Onset Date: 04/30/01 Z95.1 CABG x 2 SVG-D1 and SVG-OM w/ AVR using a [address] [employer] Mechanical Prosthesis 04/30/2001 H/O aortic valve replacement (Chronic) Onset Date: 04/30/01 Z95.2 AVR using a [address] [employer] Mechanical Prosthesis History of colonoscopy Onset Date: 02/10/19 Z98.890 History of esophagogastroduodenoscopy Onset Date: 02/10/19 Z98.890 History of radiofrequency ablation procedure for cardiac arrhythmia Onset Date: 12/26/14 Z98.890 RFA for afib w/ PVI By Dr Lee Surgical History: - - Tonsillectomy, CABG x2, AVR with mechanical valve, cholecystectomy, cardiac ablation, dental surgery. Psychiatric History: Anxiety, Depression Smoking Status: Former smoker Tobacco Use: Non-smoker - *Family History Maternal Family History: Family History (Last Reviewed 08/23/19 @ 14:34 by Albert Mojica MD) Father No problems noted. Mother Diabetes History Items: Cancer, Diabetes Paternal Family History: Family History (Last Reviewed 08/23/19 @ 14:34 by Albert Mojica MD) Father No problems noted. Mother Diabetes History Items: - - Patient notes a paternal family history of heart disease. Review of Systems Constitutional: Denies: Chills, Fever, Malaise, Weakness, Weight Change Eyes: Denies: Blurred vision HEENT: Denies: Head Aches, Sinus Congestion, Sinus Drainage Cardiovascular: Denies: Chest Pain, Heaviness, Light Headedness, Orthopnea, Palpitations Respiratory: Reports: Cough, Shortness of Breath, Shortness of breath at rest, Shortness of breath upon exertion, Sputum production. Denies: Wheezing Gastrointestinal: Denies: Abdominal Pain, Nausea, Vomiting Genitourinary: Denies: Dysuria Musculoskeletal: Denies: Joint Pain, Joint Tenderness Skin: Denies: Rash, Wounds Neurological: Denies: Numbness, Tingling, Focal weakness Psychiatric: Denies: Anxiety, Depression, Homicidal Ideations, Suicidal Ideations Hematologic/ Lymphatic: Denies: Easy Bruising, Easy Bleeding VTE Information - Inpt Only VTE Present on Admission: No VTE Pharm Prophylaxis ordered?: Yes - Physical Exam Vitals/I&O's: Vital Signs Temp Pulse Resp BP Pulse Ox 98.1 F 67 18 152/72 H 96 10/03/19 14:50 10/03/19 16:57 10/03/19 16:57 10/03/19 14:50 10/03/19 15:25 Oxygen Flow Rate (L/min) 2 Oxygen Delivery Method Nasal Cannula Weight: 188 lb Body Mass Index (BMI) 28.5 General: Alert, Oriented x3, Cooperative, No apparent distress HEENT: Atraumatic, PERRLA, EOMI, Normocephalic Oral: Moist Mucosa Neck: Supple, No JVD, Negative Carotid Bruits Lungs: - - few crackles in left lower lung [place], breath sounds diminished bibasally. on 2L of oxygen by nasal canula Cardiovascular: Normal S1, Normal S2, No murmurs, Irregular Rate - afib, rate controlled Abdomen: Bowel Sounds Present, Soft, Non Tender Extremities: No clubbing, No cyanosis, No edema, Capillary Refill Less than 3 Seconds Skin: No rashes, No breakdown Musculoskeletal: No Tenderness to Palpation of Joints or Extremities Lymphatic: No Cervical, Supraclavicular, or Inguinal Adenopathy Neurological: Cranial nerves II-XII grossly intact, Neuro grossly intact, Motor Exam 5/5 strength throughout Psych/Mental Status: Normal Affect, Appropriate, Alert and oriented to time, place, person, mood and affect Laboratory Results 10/03/19 15:30: WBC 10.0, RBC 4.36 L, Hgb 12.7 L, Hct 38.9 L, MCV 89.2, MCH 29.1, MCHC 32.6, RDW Std Deviation 51.7 H, RDW Coeff of Swapnil 15.9 H, Plt Count 295, MPV 8.6, Immature Gran % (Auto) 0.600, Neut % (Auto) 70.3 H, Lymph % (Auto) 15.8 L, [place] % (Auto) 10.1 H, Eos % (Auto) 2.2, Baso % (Auto) 1.0, Absolute Neuts (auto) 7.0, Absolute Lymphs (auto) 1.57, Nucleated RBC % 0 10/03/19 15:30: PT 34.1 H, INR 3.3, APTT 47.2 H 10/03/19 15:30: Sodium 141, Potassium 3.4 L, Chloride 108 H, Carbon Dioxide 29.0, Anion Gap 4 L, BUN 16, Creatinine 1.13, Estim Creat Clear Calc 49.60, Est GFR (MDRD) Af Amer 80, Est GFR (MDRD) Non-Af 66, BUN/Creatinine Ratio 14.2, Glucose 101, Calcium 9.1, Troponin I < 0.015 10/03/19 15:30: B-Natriuretic Peptide 126.6 H Diagnostic Data Chest X-Ray 10/03/19 15:40 IMPRESSION: Stable increased markings at the lung bases suggestive of scarring. Electronically Signed: Skyler Dhaliwal, at 15:54 EST , Service support , Current Medications Doxycycline Hyclate 100 mg/ (Dextrose) 260 mls @ 250 mls/hr IV X1 ONE Stop: 10/03/19 17:36 Sodium Chloride () 250 mls @ 15 mls/hr IV .[id number] PRN PRN Reason: Saline Flush Assessment/Plan All Active Problems (Last Reviewed 08/23/19 @ 14:34 by Albert Mojica MD) Daytime somnolence (Acute) Gasping for breath (Acute) Snoring (Acute) H/O coronary artery bypass surgery (Resolved 04/30/01) Acute gastritis with hemorrhage (Resolved 02/10/19) Hematoma of left lower extremity (Resolved) Hematoma of lower limb (Resolved) Nonhealing ulcer of left lower leg (Resolved) Pneumonia (Resolved) Ulcer of right lower extremity with fat layer exposed (Resolved) 83 y/o admitted with a complaint of shortness of breath 1. Acute hypoxic respiratory insufficiency due to bronchitis * Admit to PCU with telemetry. * Patient currently on 2 L of oxygen. Chest x-ray showed no acute cardiopulmonary process. * CBC shows no leukocytosis. * Titrate oxygen to maintain saturation above 90%. Goal is to wean off of oxygen as tolerated as he is not home oxygen. * IV Solu-Medrol 40 mg every 8. * Check respiratory panel. Hold off on antibiotics for now. * BNP was 126 initial troponin was negative. * Breathing treatments with DuoNeb's. * Consider further imaging with CT of the chest if hypoxia persists. * 2. Chronic heart failure preserved ejection fraction: * on metoprolol. BNP is 126. * 2D echo(26451: EF of 60% with inability to assess diastolic dysfunction due to arrhythmia. No regional wall motion abnormalities noted. Left atrium moderately enlarged and right atrium moderately enlarged. PASP was 44 mmHg with peak aortic valve gradient of 38 mmHg and stable appearing mechanical aortic valve. * will repeat 2D echo in light of shortness of breath 3. History of gastritis with hemorrhage:stable. hb is 12.7 4. CAD s/p CABG: on losartgan 5. Aortic valve stenosis s/p Aortic valve replacement DVT prophylaxis: on coumadin. INR is therapeutic Code status: full code * Patient counseled extensively about different types of CODE STATUS including full code, DNR CCA and DNR CCA. Patient elects to be full code. * Total gmoz-tw-srac time 17 minutes. Code Visit OBSV E&M: 88399 Initial observation care L2 Procedures: 47554 Advncd Care Plan 30 Min
[2019-10-03] MEDS: Pravastatin 80 MG Tablet PO (22:38)
[2019-10-04] VITALS (14 sets, daily range): BP systolic 103–146; BP diastolic 53–64; PULSE 61–92; RESP 16–22; TEMP 36.5–36.7; O2SAT 92–98
--- NOTE | 2019-10-04 05:55 | ECHOD_ITS ---
Reason For Study: Dyspnea/SOB Procedure This was a 2D Doppler, Color Flow transthoracic echocardiogram. The study was technically difficult. Unable to utilize Definity due to increased pressures. Exam performed portable in patient room. Left Ventricle Normal LV size. Moderate concentric left ventricular hypertrophy. Left ventricular systolic function is normal. The estimated ejection fraction is 65 %. Stage 3 diastolic dysfunction. No regional wall motion abnormalities noted. Right Ventricle Normal RV size. Normal systolic function. Atria The left atrium is moderately enlarged. The right atrium is moderately enlarged. Mitral Valve There is mild to moderate mitral annular calcification. Mild (1+) eccentric mitral valve insufficiency. Tricuspid Valve Normal tricuspid valve. Moderately severe (3+) tricuspid valve insufficiency. Pulmonary artery systolic pressure is 80 mmHg. Aortic Valve Peak aortic valve gradient 59 mmHg. Mean aortic valve gradient 30 mmHg. Stable appearing mechanical aortic valve apparatus. Pulmonic Valve Normal pulmonic valve. Great Vessels Normal aortic root. The pulmonary artery is normal size. Normal inferior vena cava. Pericardium/Pleural No pericardial effusion. MMode/2D Measurements & Calculations LVIDd: 4.1 cm IVSd: 1.5 cm Ao root diam: 3.7 cm LVIDs: 2.3 cm LVPWd: 1.3 cm RVDd: 5.3 cm FS: 43.0 % LAV(MOD-bp): 104.8 ml LA A4 area: 27.7 cm2 RA A4 area: 26.1 cm2 LAV(MOD-bp) Indexed: 52.6 ml/m2 LAV(MOD-sp2): 110.4 ml LAV(MOD-sp4): 99.1 ml Time Measurements MV dec time: 0.30 sec Doppler Measurements & Calculations MV E max stanley: 164.7 cm/sec Lat Peak E' Stanley: 9.8 cm/sec Med Peak E' Stanley: 6.4 cm/sec MV A max stanley: 41.9 cm/sec E/E' lat: 16.8 E/E' med: 25.8 MV E/A: 3.9 MV V2 max: 250.4 cm/sec MV P1/2t max stanley: 250.4 cm/sec Ao V2 max: 383.5 cm/sec MV max P.1 mmHg MV P1/2t: 72.6 msec Ao max P.8 mmHg MV V2 mean: 122.7 cm/sec MV dec slope: 1010 cm/sec2 Ao V2 mean: 251.2 cm/sec MV mean P.8 mmHg MVA(P1/2t): 3.0 cm2 Ao mean P.6 mmHg MV V2 VTI: 60.9 cm Ao V2 VTI: 76.7 cm LV V1 max: 179.3 cm/sec MR max stanley: 621.2 cm/sec PA V2 max: 161.8 cm/sec LV V1 max P.9 mmHg MR max P.4 mmHg LV V1 mean P.6 mmHg MR mean stanley: 548.3 cm/sec LV V1 mean: 139.9 cm/sec MR mean P.4 mmHg LV V1 VTI: 42.8 cm MR VTI: 186.6 cm TR max stanley: 432.1 cm/sec TR max P.7 mmHg Interpretation Summary Normal LV size. Moderate concentric left ventricular hypertrophy. Left ventricular systolic function is normal. The estimated ejection fraction is 65 %. Stage 3 diastolic dysfunction. Mean aortic valve gradient 30 mmHg. Compared to the previous the pulmonary pressures are elevated and the aortic valve gradient is elevated. Ordering Physician: Concha Doyle Referring Physician: Michael Cortez MD Performed By: Anton So RCS
[2019-10-04 06:27] LABS: Absolute Lymphocyte Count 0.55 X10^3/uL (0.83-4.51); Absolute Neutrophil Count 6.7 X10^3/uL (2.0-7.7); Basophil# 0.01 X10^3/uL; Basophil% 0.1 % (0-1); Hemoglobin 11.7 g/dL (13.0-16.5); Lymphocyte # 0.55 X10^3/ul (4.0); Lymphocyte % 7.5 % (19-41); Mean Corp Hgb Conc 32.5 g/dL (32-36); Mean Corpuscular Hgb 28.6 pg (27.0-32.0); Mean Platelet Vol. 8.9 fl (6.2-12.0); Monocyte# 0.06 X10^3/uL; Monocyte% 0.8 % (0-10); NRBC Flagged by Analyzer 0 % (0-5); Neutrophil # 6.72 X10^3/uL (2.7-7.7); Neutrophil % 91.2 % (47-70); POSITIVE DIFFERENTIAL YES; Platelet Count 296 K/mm3 (150-450); RBC Distribution Width CV 15.8 % (11.6-14.6); Red Blood Count 4.09 M/mm3 (4.6-6.2); White Blood Count 7.4 K/mm3 (4.4-11.0)
[2019-10-04 06:36] LABS: Differential Indicated SCAN CRITERIA MET
[2019-10-04 06:47] LABS: Anion Gap 8 (5-15); BUN 25 mg/dL (7-18); BUN/Creat Ratio 20.3 RATIO (10-20); Calcium,Total 9.1 mg/dL (8.5-10.1); Chloride 106 mmol/L (98-107); Creatinine, Serum 1.23 mg/dL (0.70-1.30); EST Glomerular Filtration Rate 60 mL/min (>60); Est Glom Filt Rate - Afr Amer 73 mL/min (>60); Estimated Creatinine Clearance 45.57 ml/min; Glucose 221 mg/dL (74-106); Potassium 3.8 mmol/L (3.5-5.1); Sodium Level 139 mmol/L (136-145)
[2019-10-04 06:51] LABS: Platelet Estimate ADEQUATE (ADEQ); Red Cell Morphology NORM C+C NORMAL (NORM C&C)
[2019-10-04] MEDS: Ipratropium/Albuterol Sulfate 3 ML AMPUL.NEB INHALATION ×2 (06:53→10:20)
[2019-10-04] MEDS: Losartan Potassium 100 MG Tablet PO (08:17)
[2019-10-04] MEDS: Furosemide 40 MG Tablet PO ×2 (08:17→16:53)
[2019-10-04] MEDS: Escitalopram Oxalate 10 MG Tablet PO (08:17)
[2019-10-04] MEDS: amLODIPine 10 MG Tablet PO (08:17)
--- NOTE | 2019-10-04 10:58 | PCM.PN.HOSP ---
<Shaun Hardy - Last Filed: 10/04/19 10:58> Reason for Visit: SOB Subjective: Pt reports improvement in SOB. He has noticed for the past week progressively worsening SOB. This is worse with exertion. It is improved with lying flat. He has no LE edema. He has no CP. He has no wheezing. He has a cough that occasionally brings up a small amount of sputum. He has a sore throat. He denies sinus/nasal congestion. He has no fever/chills. He denies sick contacts. He denies a hx of asthma/copd/CHF. He states he has had afib since his aortic valve repair. Vitals/I&O's: Vital Signs Temp Pulse Resp BP Pulse Ox 98.0 F 81 16 146/60 H 95 10/04/19 08:14 10/04/19 10:20 10/04/19 10:20 10/04/19 08:14 10/04/19 08:14 Oxygen Flow Rate (L/min) 2 Oxygen Delivery Method Nasal Cannula Weight: 188 lb 14.978 oz Body Mass Index (BMI) 28.7 Intake and Output for Last 24 Hours 10/02/19 10/03/19 10/04/19 23:59 23:59 23:59 Intake Total 273.25 / 273.25 1000 / 1000 Balance 273.25 / 273.25 1000 / 1000 General: Alert, Oriented x3, Cooperative HEENT: Atraumatic, PERRLA, EOMI, Normocephalic Neck: Supple, No JVD, Negative Carotid Bruits Lungs: Clear to auscultation, Normal air movement Cardiovascular: No murmurs, Irregular Rate - irreg/irreg Abdomen: Bowel Sounds Present, Soft, Non Tender, Obese Extremities: No edema, Capillary Refill Less than 3 Seconds Skin: No rashes, No breakdown Musculoskeletal: No Tenderness to Palpation of Joints or Extremities Neurological: Cranial nerves II-XII grossly intact Psych/Mental Status: Normal Affect, Appropriate, Alert and oriented to time, place, person, mood and affect Microbiology Past 72 Hours 10/03/19 19:10 Mucosa - Nasopharyngeal Respiratory Panel (PCR) - Final Laboratory Results 10/03/19 15:30: WBC 10.0, RBC 4.36 L, Hgb 12.7 L, Hct 38.9 L, MCV 89.2, MCH 29.1, MCHC 32.6, RDW Std Deviation 51.7 H, RDW Coeff of Swapnil 15.9 H, Plt Count 295, MPV 8.6, Immature Gran % (Auto) 0.600, Neut % (Auto) 70.3 H, Lymph % (Auto) 15.8 L, [place] % (Auto) 10.1 H, Eos % (Auto) 2.2, Baso % (Auto) 1.0, Absolute Neuts (auto) 7.0, Absolute Lymphs (auto) 1.57, Nucleated RBC % 0 10/03/19 15:30: PT 34.1 H, INR 3.3, APTT 47.2 H 10/03/19 15:30: Sodium 141, Potassium 3.4 L, Chloride 108 H, Carbon Dioxide 29.0, Anion Gap 4 L, BUN 16, Creatinine 1.13, Estim Creat Clear Calc 49.60, Est GFR (MDRD) Af Amer 80, Est GFR (MDRD) Non-Af 66, BUN/Creatinine Ratio 14.2, Glucose 101, Calcium 9.1, Troponin I < 0.015 10/03/19 15:30: B-Natriuretic Peptide 126.6 H 10/04/19 06:10: Sodium 139, Potassium 3.8, Chloride 106, Carbon Dioxide 25.0, Anion Gap 8, BUN 25 H, Creatinine 1.23, Estim Creat Clear Calc 45.57, Est GFR (MDRD) Af Amer 73, Est GFR (MDRD) Non-Af 60, BUN/Creatinine Ratio 20.3 H, Glucose 221 H, Calcium 9.1 10/04/19 06:10: WBC 7.4, RBC 4.09 L, Hgb 11.7 L, Hct 36.0 L, MCV 88.0, MCH 28.6, MCHC 32.5, RDW Std Deviation 50.0 H, RDW Coeff of Swapnil 15.8 H, Plt Count 296, MPV 8.9, Immature Gran % (Auto) 0.400, Neut % (Auto) 91.2 H, Lymph % (Auto) 7.5 L, [place] % (Auto) 0.8, Eos % (Auto) 0.0, Baso % (Auto) 0.1, Absolute Neuts (auto) 6.7, Absolute Lymphs (auto) 0.55 L, Nucleated RBC % 0, Differential Comment COMMENT, Platelet Estimate ADEQUATE, RBC Morphology NORM C+C Current Medications Albuterol/Ipratropium (Duoneb) 3 ml INHALATION Q4H.RT [facility] Last Admin: 10/04/19 10:51 Dose: Not Given Documented by: Amlodipine Besylate (Norvasc) 10 mg PO DAILY [facility] Last Admin: 10/04/19 08:17 Dose: 10 mg Documented by: Dextrose (D50w Syringe) 0 gm IV X1 PRN; Protocol PRN Reason: Hypoglycemia Escitalopram Oxalate (Lexapro) 10 mg PO DAILY [facility] Last Admin: 10/04/19 08:17 Dose: 10 mg Documented by: Furosemide (Lasix) 40 mg PO 1000,1800 [facility] Last Admin: 10/04/19 08:17 Dose: 40 mg Documented by: Glucagon () 1 mg IM .X1 PRN PRN Reason: Hypoglycemia Guaifenesin (Mucinex) 1,200 mg PO QHS [facility] Last Admin: 10/03/19 22:41 Dose: Not Given Documented by: Sodium Chloride () 250 mls @ 15 mls/hr IV .[id number] PRN PRN Reason: Saline Flush Last Infusion: 10/03/19 17:55 Dose: 0 mls/hr Documented by: Sodium Chloride () 500 mls @ 15 mls/hr IV PRN PRN PRN Reason: Blood Transfusion Sodium Chloride () 250 mls @ 15 mls/hr IV .[id number] PRN PRN Reason: Saline Flush Sodium Chloride () 250 mls @ 15 mls/hr IV .[id number] PRN PRN Reason: Additional IVPB Infusion Losartan Potassium (Cozaar) 100 mg PO DAILY [facility] Last Admin: 10/04/19 08:17 Dose: 100 mg Documented by: Methylprednisolone (Solu-Medrol) 40 mg IV Q8 [facility] Last Admin: 10/04/19 06:23 Dose: 40 mg Documented by: Nutritional Formula (Lactose Free) (Ensure Enlive) 120 ml PO 4X/DAY [facility] Last Admin: 10/04/19 08:18 Dose: Not Given Documented by: [facility] Admin: 10/04/19 08:17 Dose: 20 meq Documented by: Pravastatin Sodium (Pravachol) 80 mg PO QHS [facility] Last Admin: 10/03/19 22:38 Dose: 80 mg Documented by: Sodium Chloride () 10 - 40 ml IV UD PRN PRN Reason: SALINE FLUSH Warfarin Sodium (Coumadin (Pbkc)) 4 mg PO DAILY@1700 [facility]; Protocol STROKE Vital Signs/Narrative: Vital Signs Temp Pulse Resp BP Pulse Ox 10/04/19 10:20 81 16 10/04/19 08:14 98.0 F 92 20 H 146/60 H 95 10/04/19 07:40 92 10/04/19 07:05 75 10/04/19 07:00 72 18 Medical Necessity - Tobacco Use Smoking Status: Former smoker Tobacco Use: Non-smoker Assessment/Plan All Active Problems (Last Reviewed 08/23/19 @ 14:34 by Albert Mojica MD) Daytime somnolence (Acute) Gasping for breath (Acute) Snoring (Acute) 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 Acute hypoxia, acute bronchitis - no fever/leukocytosis. productive cough. sore throat. hypoxic in the ER at 85% on RA, stable on 2 lpm. Continue aerosols and steroids. Wean o2. + smoking hx (quit 30 years ago, smoked for 20), possibly underlying lung disease. BNP slightly elevated. CXR with scarring. Echo pending. Trop neg. SOB worse with rest, better lying flat. Home lasix dose conitnued - he denies hx chf and pulm htn but these are listed in his hx. -given doxy in er, further abx deferred. 2.Chronic Afib - rate controlled, in afib, INR 3.3 3. Hx diastolic CHF, pulmonary htn - echo pending. does not appear volume overloaded. home lasix continued. K+ normalized 4. Hx CAD - prior CABG 5. Hx aortic stenosis with prior AV replacement, st aldo mechanical 6. HTN - mildly 7. Hx GI bleed - Hgb stable 8. HLD - continue statin 9. Anx/Depression - lexapro DVT ppx : coumadin DC planning: wean o2. await echo results. This patient was seen by Shaun Hardy PA-C under the supervision of Dr. Amaya. <Mike Amaya - Last Filed: 10/04/19 11:58> Vitals/I&O's: Vital Signs Temp Pulse Resp BP Pulse Ox 36.7 C 81 16 146/60 H 95 10/04/19 08:14 10/04/19 10:20 10/04/19 10:20 10/04/19 08:14 10/04/19 08:14 Oxygen Flow Rate (L/min) 2 Oxygen Delivery Method Nasal Cannula Weight: 85.7 kg Body Mass Index (BMI) 28.7 Intake and Output for Last 24 Hours 10/02/19 10/03/19 10/04/19 23:59 23:59 23:59 Intake Total 273.25 / 273.25 1000 / 1000 Balance 273.25 / 273.25 1000 / 1000 General: Alert, Cooperative HEENT: Atraumatic, Normocephalic Neck: No Nodes, Trachea Midline Lungs: Clear to auscultation, Normal air movement, No rhonchi Cardiovascular: No murmurs, Irregular Rate Abdomen: Bowel Sounds Present, Soft, Non Tender, Obese Extremities: No edema, No Calf Tenderness Skin: No rashes, No breakdown Psych/Mental Status: Normal Affect, Appropriate Microbiology Past 72 Hours 10/03/19 19:10 Mucosa - Nasopharyngeal Respiratory Panel (PCR) - Final Laboratory Results 10/03/19 15:30: WBC 10.0, RBC 4.36 L, Hgb 12.7 L, Hct 38.9 L, MCV 89.2, MCH 29.1, MCHC 32.6, RDW Std Deviation 51.7 H, RDW Coeff of Swapnil 15.9 H, Plt Count 295, MPV 8.6, Immature Gran % (Auto) 0.600, Neut % (Auto) 70.3 H, Lymph % (Auto) 15.8 L, [place] % (Auto) 10.1 H, Eos % (Auto) 2.2, Baso % (Auto) 1.0, Absolute Neuts (auto) 7.0, Absolute Lymphs (auto) 1.57, Nucleated RBC % 0 10/03/19 15:30: PT 34.1 H, INR 3.3, APTT 47.2 H 10/03/19 15:30: Sodium 141, Potassium 3.4 L, Chloride 108 H, Carbon Dioxide 29.0, Anion Gap 4 L, BUN 16, Creatinine 1.13, Estim Creat Clear Calc 49.60, Est GFR (MDRD) Af Amer 80, Est GFR (MDRD) Non-Af 66, BUN/Creatinine Ratio 14.2, Glucose 101, Calcium 9.1, Troponin I < 0.015 10/03/19 15:30: B-Natriuretic Peptide 126.6 H 10/04/19 06:10: Sodium 139, Potassium 3.8, Chloride 106, Carbon Dioxide 25.0, Anion Gap 8, BUN 25 H, Creatinine 1.23, Estim Creat Clear Calc 45.57, Est GFR (MDRD) Af Amer 73, Est GFR (MDRD) Non-Af 60, BUN/Creatinine Ratio 20.3 H, Glucose 221 H, Calcium 9.1 10/04/19 06:10: WBC 7.4, RBC 4.09 L, Hgb 11.7 L, Hct 36.0 L, MCV 88.0, MCH 28.6, MCHC 32.5, RDW Std Deviation 50.0 H, RDW Coeff of Swapnil 15.8 H, Plt Count 296, MPV 8.9, Immature Gran % (Auto) 0.400, Neut % (Auto) 91.2 H, Lymph % (Auto) 7.5 L, [place] % (Auto) 0.8, Eos % (Auto) 0.0, Baso % (Auto) 0.1, Absolute Neuts (auto) 6.7, Absolute Lymphs (auto) 0.55 L, Nucleated RBC % 0, Differential Comment COMMENT, Platelet Estimate ADEQUATE, RBC Morphology NORM C+C Current Medications Albuterol/Ipratropium (Duoneb) 3 ml INHALATION Q4H.RT [facility] Last Admin: 10/04/19 10:51 Dose: Not Given Documented by: Amlodipine Besylate (Norvasc) 10 mg PO DAILY [facility] Last Admin: 10/04/19 08:17 Dose: 10 mg Documented by: Dextrose (D50w Syringe) 0 gm IV X1 PRN; Protocol PRN Reason: Hypoglycemia Escitalopram Oxalate (Lexapro) 10 mg PO DAILY [facility] Last Admin: 10/04/19 08:17 Dose: 10 mg Documented by: Furosemide (Lasix) 40 mg PO 1000,1800 [facility] Last Admin: 10/04/19 08:17 Dose: 40 mg Documented by: Glucagon () 1 mg IM .X1 PRN PRN Reason: Hypoglycemia Guaifenesin (Mucinex) 1,200 mg PO QHS [facility] Last Admin: 10/03/19 22:41 Dose: Not Given Documented by: Sodium Chloride () 250 mls @ 15 mls/hr IV .[id number] PRN PRN Reason: Saline Flush Last Infusion: 10/03/19 17:55 Dose: 0 mls/hr Documented by: Sodium Chloride () 500 mls @ 15 mls/hr IV PRN PRN PRN Reason: Blood Transfusion Sodium Chloride () 250 mls @ 15 mls/hr IV .[id number] PRN PRN Reason: Saline Flush Sodium Chloride () 250 mls @ 15 mls/hr IV .[id number] PRN PRN Reason: Additional IVPB Infusion Losartan Potassium (Cozaar) 100 mg PO DAILY [facility] Last Admin: 10/04/19 08:17 Dose: 100 mg Documented by: Methylprednisolone (Solu-Medrol) 40 mg IV Q8 [facility] Last Admin: 10/04/19 06:23 Dose: 40 mg Documented by: Nutritional Formula (Lactose Free) (Ensure Enlive) 120 ml PO 4X/DAY [facility] Last Admin: 10/04/19 08:18 Dose: Not Given Documented by: Potassium Chloride (K-Dur) 20 meq PO DAILYCM [facility] Last Admin: 10/04/19 08:17 Dose: 20 meq Documented by: Pravastatin Sodium (Pravachol) 80 mg PO QHS [facility] Last Admin: 10/03/19 22:38 Dose: 80 mg Documented by: Sodium Chloride () 10 - 40 ml IV UD PRN PRN Reason: SALINE FLUSH Warfarin Sodium (Coumadin (Pbkc)) 4 mg PO DAILY@1700 [facility]; Protocol STROKE Vital Signs/Narrative: Vital Signs Temp Pulse Resp BP Pulse Ox 10/04/19 10:20 81 16 10/04/19 08:14 36.7 C 92 20 H 146/60 H 95 Assessment/Plan Patient seen and examined independently. Data reviewed. I agree with the above note by the physician virtual office assistant. 1. acute hypoxic respiratory insufficiency 2/2 bronchitis on methylpred, BDs 2. HFpEF EF 60% from echo on 05/27/18 furosemide, losartan 3. chronic Afib: continue warfarin Code Visit Inpatient E&M: 38609 Subs Hosp L2
[2019-10-04] MEDS: 0.9% Saline Lock 10 ML Syringe IV (14:33)
--- NOTE | 2019-10-04 19:30 | CPS ---
pt refused aero tx at this time-states breathing fine-was told to call if needed on at any time
[2019-10-04] MEDS: Pravastatin 80 MG Tablet PO (21:13)
[2019-10-04] MEDS: guaiFENesin 1,200 MG Tablet 1200 MG PO (21:13)
[2019-10-05 00:07] VITALS: PULSE 65
[2019-10-05 02:00] VITALS: BP 145/71; PULSE 63; RESP 18; TEMP 36.6; O2SAT 96
[2019-10-05 04:21] VITALS: PULSE 53
[2019-10-05 06:07] LABS: Prothrombin Time (Protime)PT. 35.4 SECONDS (11.7-14.9)
[2019-10-05 06:14] LABS: Anion Gap 6 (5-15); BUN 33 mg/dL (7-18); BUN/Creat Ratio 25.6 RATIO (10-20); Calcium,Total 9.5 mg/dL (8.5-10.1); Chloride 107 mmol/L (98-107); Creatinine, Serum 1.29 mg/dL (0.70-1.30); EST Glomerular Filtration Rate 57 mL/min (>60); Est Glom Filt Rate - Afr Amer 69 mL/min (>60); Estimated Creatinine Clearance 43.45 ml/min; Glucose 163 mg/dL (74-106); Potassium 4.5 mmol/L (3.5-5.1); Sodium Level 141 mmol/L (136-145)
[2019-10-05 06:17] LABS: International Normalized Ratio 3.5
[2019-10-05 07:11] VITALS: O2SAT 93
[2019-10-05 08:42] VITALS: BP 120/56; PULSE 62; RESP 16; TEMP 36.6; O2SAT 95
[2019-10-05] MEDS: Losartan Potassium 100 MG Tablet PO (08:59)
[2019-10-05] MEDS: Furosemide 40 MG Tablet PO (09:00)
[2019-10-05] MEDS: amLODIPine 10 MG Tablet PO (09:01)
[2019-10-05] MEDS: Escitalopram Oxalate 10 MG Tablet PO (09:01)
--- NOTE | 2019-10-05 09:23 | CASEMGMT ---
RN ONEIL NOTE: To room to talk with pt. Introduced self and role of RN ONEIL. Reviewed TOMAS form with pt and he denies having any questions. TOMAS form signed by pt, copy made and placed on chart, and original given to pt. Pt instructed to ask for CM if he has any questions/concerns. January MOE RN CM
--- NOTE | 2019-10-05 11:30 | CASEMGMT ---
Pt does qualify for 2 liters home oxygen at this time. After list of local DME companies provided, pt chose [employer] at this time. Referral faxed to [facility] [place] and call to José Miguel to notify of referral at this time, voices understanding. [facility] Miguel is aware of pt discharge and just awaiting tank, voices understanding. does state concern about what needs to happen if pt no longer qualifies for home oxygen and per [facility] Miguel, pt just needs a discharge order from PCP after re-tested. Pt/ updated at this time, voice understanding and voice no further questions/concerns/needs at this time. Clotilde RN CM
[2019-10-05 11:33] VITALS: O2SAT 88; O2SAT 92
--- NOTE | 2019-10-05 11:41 | PCM.DC ---
You will use the following diet at home:: Cardiac Your food should be the consistency of: Regular Your liquids should be the consistency of: Regular/Thin Discharge Activity: Return to Normal Activity Call your doctor if you observe: Shortness of breath, Swelling in the ankles, Chest pain Additional Instructions: Hold warfarin tonight. Have INR checked tomorrow and ask for further instruction on when to resume warfarin. Allergies/Adverse Reactions: Allergies No Known Allergies Allergy (Verified 10/03/19 14:53) Medications to take at Discharge magnesium oxide 400 mg (241.3 mg magnesium) tablet 400 mg PO BREAKFAST tab 10/01/17 vit A 7,160 unit-vit C 113 mg-vit E 100 [id number] tablet 1 tab PO DAILY 04/16/18 Escitalopram Oxalate 10 mg PO DAILY 02/08/19 losartan 100 mg tablet 100 mg PO DAILY #90 tab 06/21/19 potassium chloride 20 mEq tablet,extended release 20 meq PO DAILY #90 tab 08/18/19 warfarin 4 mg tablet 4 mg PO DAILY #90 tab 08/23/19 Amlodipine Besylate 10 mg PO DAILY 10/03/19 Cholecalciferol (Vitamin D3) [Vitamin D3] 125 mcg PO DAILY 10/03/19 Furosemide 40 mg PO BID 10/03/19 Guaifenesin [Mucinex] 1,200 mg PO QHS 10/03/19 Pravastatin Sodium 80 mg PO DAILY 10/03/19 Albuterol Inhaler [Ventolin Hfa] 1 puff INHALATION Q6H PRN PRN #1 inhaler 10/05/19 Prednisone 10 mg PO UD #30 tab 10/05/19 The following prescriptions were given: Prednisone 10 mg PO UD #30 tab Transmission Status: Pending to [facility] Albuterol Inhaler [Ventolin Hfa] 1 puff INHALATION Q6H PRN PRN #1 inhaler PRN Reason: Sob &/Or Wheezing Transmission Status: Pending to [facility] Primary Care Physician: Fernando Cortez MD [Primary Care Provider] - Please follow up with your Primary Care Physician in: 1-2 weeks Test Results: Test results from this visit will be discussed in further detail at your follow-up appointment, if applicable. Please Follow Up With: Albert Mojica MD When: Call for appointment Proposed Discharge Date: 10/05/19
--- NOTE | 2019-10-05 12:32 | PHA.DC.MC ---
Pharmacy Service has performed discharge medication reconciliation and counseling for this patient. 1. ALBUTEROL INHALER 1 PUFF Q6H PRN SOB/WHEEZING 2. PREDNISONE 40MG PO DAILY X 3 DAYS, THEN 30MG X 3 DAYS, THEN 20MG X 3 DAY, THEN 10MG X 3 DAYS The patient's discharge medication list was reviewed for discrepancies and discrepancies were resolved. Home Medications magnesium oxide 400 mg (241.3 mg magnesium) tablet 400 mg PO BREAKFAST tab 10/01/17 vit A 7,160 unit-vit C 113 mg-vit E 100 [id number] tablet 1 tab PO DAILY 04/16/18 Escitalopram Oxalate 10 mg PO DAILY 02/08/19 losartan 100 mg tablet 100 mg PO DAILY #90 tab 06/21/19 potassium chloride 20 mEq tablet,extended release 20 meq PO DAILY #90 tab 08/18/19 warfarin 4 mg tablet 4 mg PO DAILY #90 tab 08/23/19 Amlodipine Besylate 10 mg PO DAILY 10/03/19 Cholecalciferol (Vitamin D3) [Vitamin D3] 125 mcg PO DAILY 10/03/19 Furosemide 40 mg PO BID 10/03/19 Guaifenesin [Mucinex] 1,200 mg PO QHS 10/03/19 Pravastatin Sodium 80 mg PO DAILY 10/03/19 Albuterol Inhaler [Ventolin Hfa] 1 puff INHALATION Q6H PRN PRN #1 inhaler 10/05/19 Prednisone 10 mg PO UD #30 tab 10/05/19 The patient was counseled on the following discharge medications and changes in medications for homegoing were reviewed. The Reason for Use, instructions for use, and potential side effects were reviewed for all new medications. The patient's questions regarding all of their medications were answered. The patient was able to verbally demonstrate an understanding of their discharge medications.
--- NOTE | 2019-10-05 14:32 | PCM.DC.SUM ---
<Shaun Hardy - Last Filed: 10/05/19 14:32> Discharge Date and Diagnosis Date of Admission: 10/03/19 Date of Discharge: 10/05/19 - Primary Discharge Diagnosis Acute hypoxia 2/2 acute bronchitis, severe pulmonary HTN Chronic Afib Hx diastolic CHF CAD Aortic stenosis, prior [place] mechanical HTN Hx GI bleed HLD Anx/depression - Secondary Discharge Diagnosis Chronic Problems (Last Reviewed 08/23/19 @ 14:34 by Albert Mojica MD) Atherosclerosis of coronary artery of [place] heart with angina pectoris (Chronic) CABG x 2 SVG-D1 and SVG-OM w/ AVR using a [address] [place] Mechanical Prosthesis 04/30/2001 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) H/O aortic valve replacement (Chronic 04/30/01) AVR using a [address] [place] Mechanical Prosthesis Chronic atrial fibrillation (Chronic) Secondary pulmonary arterial hypertension (Chronic) Essential (primary) hypertension (Chronic) Chronic diastolic heart failure (Chronic) Hyperlipidemia (Chronic) 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 Echo: Interpretation Summary Normal LV size. Moderate concentric left ventricular hypertrophy. Left ventricular systolic function is normal. The estimated ejection fraction is 65 %. Stage 3 diastolic dysfunction. Mean aortic valve gradient 30 mmHg. Compared to the previous the pulmonary pressures are elevated and the aortic valve gradient is elevated. Operations: None Procedures: 2-D Echocardiogram Summary of Care Provided: Hospital Course: The patient is a 83 year old M with pmhx of diastolic CHF, pulmonary htn, nicotine abuse, aortic stenosis with [place] mechanical valve, chronic Afib, htn, hld who prsesented to the ER with c/o SOB. He was found to be hypoxic at 85% on RA, stabilized with 2lpm. CXR was negative. He was wheezy and without LE edema. He was felt to have acute bronchitis and admitted on solumedrol and aerosols. His SOB resolved. He underwent an echo which showed that his PASP had increased to 80mmHg, and he had 3+ TVI, Stage 3 diastolic dysfunction. His pulmonary HTN was felt to be a major factor in his acute hypoxia as well as bronchitis. He was transitioned to a prednisone taper. He was unable to be weaned completed off O2. He is active at home and in the community and will be DCd on home o2, he requires 2lpm to maintain adequate sats. He was discharged in stable condition. He is to follow up with Dr. Mojica for a MT. He will need follow up with pulmonary medicine in 3-4 weeks. He should follow up with his PCP in 1-2 weeks. This patient was seen by Shaun Hardy PA-C under the supervision of Dr. Feldman. [] - Physical Exam Vitals/I&O's: Vital Signs Temp Pulse Resp BP Pulse Ox 97.8 F 62 16 120/56 L 92 10/05/19 08:42 10/05/19 08:42 10/05/19 08:42 10/05/19 08:42 10/05/19 11:33 Oxygen Flow Rate (L/min) [ 2 AMBULATION with Oxygen] Oxygen Flow Rate (L/min) 2 Oxygen Delivery Method Nasal Cannula Weight: 190 lb 7.67 oz Body Mass Index (BMI) 28.7 Intake and Output for Last 24 Hours 10/03/19 10/04/19 10/05/19 23:59 23:59 23:59 Intake Total 273.25 / 273.25 1600 / 1920 520 / 520 Balance 273.25 / 273.25 1600 / 1919 520 / 520 General: Alert, Oriented x3, Cooperative HEENT: Atraumatic, PERRLA, EOMI, Normocephalic Neck: Supple, No JVD, Negative Carotid Bruits Lungs: Clear to auscultation, Normal air movement Cardiovascular: Regular rate, Murmur Abdomen: Bowel Sounds Present, Soft, Non Tender Extremities: No edema, Capillary Refill Less than 3 Seconds Skin: No rashes, No breakdown Musculoskeletal: No Tenderness to Palpation of Joints or Extremities Neurological: Cranial nerves II-XII grossly intact Psych/Mental Status: Normal Affect, Appropriate, Alert and oriented to time, place, person, mood and affect Microbiology Past 72 Hours 10/03/19 19:10 Mucosa - Nasopharyngeal Respiratory Panel (PCR) - Final Laboratory Results 10/05/19 05:35: PT 35.4 H, INR 3.5 H* 10/05/19 05:35: Sodium 141, Potassium 4.5, Chloride 107, Carbon Dioxide 28.0, Anion Gap 6, BUN 33 H, Creatinine 1.29, Estim Creat Clear Calc 43.45, Est GFR (MDRD) Af Amer 69, Est GFR (MDRD) Non-Af 57 L, BUN/Creatinine Ratio 25.6 H, Glucose 163 H, Calcium 9.5 Current Medications Albuterol/Ipratropium (Duoneb) 3 ml INHALATION Q4H.RT COUNT INCLUDES THE [facility] Last Admin: 10/05/19 11:00 Dose: Not Given Documented by: Amlodipine Besylate (Norvasc) 10 mg PO DAILY COUNT INCLUDES THE [facility] Last Admin: 10/05/19 09:01 Dose: 10 mg Documented by: Dextrose (D50w Syringe) 0 gm IV X1 PRN; Protocol PRN Reason: Hypoglycemia Escitalopram Oxalate (Lexapro) 10 mg PO DAILY COUNT INCLUDES THE [facility] Last Admin: 10/05/19 09:01 Dose: 10 mg Documented by: Furosemide (Lasix) 40 mg PO 1000,1800 COUNT INCLUDES THE [facility] Last Admin: 10/05/19 09:00 Dose: 40 mg Documented by: Glucagon () 1 mg IM .X1 PRN PRN Reason: Hypoglycemia Guaifenesin (Mucinex) 1,200 mg PO QHS COUNT INCLUDES THE [facility] Last Admin: 10/04/19 21:13 Dose: 1,200 mg Documented by: Sodium Chloride () 250 mls @ 15 mls/hr IV .[id number] PRN PRN Reason: Saline Flush Last Infusion: 10/03/19 17:55 Dose: 0 mls/hr Documented by: Sodium Chloride () 500 mls @ 15 mls/hr IV PRN PRN PRN Reason: Blood Transfusion Sodium Chloride () 250 mls @ 15 mls/hr IV .[id number] PRN PRN Reason: Saline Flush Sodium Chloride () 250 mls @ 15 mls/hr IV .[id number] PRN PRN Reason: Additional IVPB Infusion Losartan Potassium (Cozaar) 100 mg PO DAILY COUNT INCLUDES THE [facility] Last Admin: 10/05/19 08:59 Dose: 100 mg Documented by: Methylprednisolone (Solu-Medrol) 40 mg IV Q8 COUNT INCLUDES THE [facility] Last Admin: 10/05/19 04:47 Dose: 40 mg Documented by: Nutritional Formula (Lactose Free) (Ensure Enlive) 120 ml PO 4X/DAY COUNT INCLUDES THE [facility] Last Admin: 10/05/19 09:01 Dose: Not Given Documented by: Potassium Chloride (K-Dur) 20 meq PO DAILYCM COUNT INCLUDES THE [facility] Last Admin: 10/05/19 09:07 Dose: 20 meq Documented by: Pravastatin Sodium (Pravachol) 80 mg PO QHS COUNT INCLUDES THE [facility] Last Admin: 10/04/19 21:13 Dose: 80 mg Documented by: Sodium Chloride () 10 - 40 ml IV UD PRN PRN Reason: SALINE FLUSH Last Admin: 10/04/19 14:33 Dose: 10 ml Documented by: Warfarin Sodium (Coumadin (Pbkc)) 4 mg PO DAILY@1700 COUNT INCLUDES THE [facility]; Protocol Last Admin: 10/04/19 16:53 Dose: 4 mg Documented by: Discharge Activity: Return to Normal Activity Call your doctor if you observe: Shortness of breath, Swelling in the ankles, Chest pain Home Medications: Medications to take at Discharge magnesium oxide 400 mg (241.3 mg magnesium) tablet 400 mg PO BREAKFAST tab 10/01/17 vit A 7,160 unit-vit C 113 mg-vit E 100 [id number] tablet 1 tab PO DAILY 04/16/18 Escitalopram Oxalate 10 mg PO DAILY 02/08/19 losartan 100 mg tablet 100 mg PO DAILY #90 tab 06/21/19 potassium chloride 20 mEq tablet,extended release 20 meq PO DAILY #90 tab 08/18/19 warfarin 4 mg tablet 4 mg PO DAILY #90 tab 08/23/19 Amlodipine Besylate 10 mg PO DAILY 10/03/19 Cholecalciferol (Vitamin D3) [Vitamin D3] 125 mcg PO DAILY 10/03/19 Furosemide 40 mg PO BID 10/03/19 Guaifenesin [Mucinex] 1,200 mg PO QHS 10/03/19 Pravastatin Sodium 80 mg PO DAILY 10/03/19 Albuterol Inhaler [Ventolin Hfa] 1 puff INHALATION Q6H PRN PRN #1 inhaler 10/05/19 Prednisone 10 mg PO UD #30 tab 10/05/19 Following Prescrptions Were Given to Patient: Prednisone 10 mg PO UD #30 tab Transmission Status: Sent to [facility] Albuterol Inhaler [Ventolin Hfa] 1 puff INHALATION Q6H PRN PRN #1 inhaler PRN Reason: Sob &/Or Wheezing Transmission Status: Sent to [facility] Primary Care Physician: Fernando Cortez MD [Primary Care Provider] - Please follow up with your Primary Care Physician in: 1-2 weeks Please Follow Up With: Albert Mojica MD When: Call for appointment Medical Necessity - Tobacco Use Smoking Status: Former smoker Tobacco Use: Non-smoker Meaningful Use Info Meaningful Use Diagnoses (Choose all that apply): None applicable <Jarrod Feldman - Last Filed: 10/05/19 15:24> Discharge Date and Diagnosis - Secondary Discharge Diagnosis Chronic Problems (Last Reviewed 08/23/19 @ 14:34 by Albert Mojica MD) Atherosclerosis of coronary artery of [place] heart with angina pectoris (Chronic) CABG x 2 SVG-D1 and SVG-OM w/ AVR using a [address] [place] Mechanical Prosthesis 04/30/2001 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 I have independently interviewed and examined the patient and reviewed pertinent history, examination findings, laboratory and plan of management. I have reviewed the note and agree with the documented findings with the few additional points. In brief, patient is is 83-year-old gentleman was admitted for shortness of breath and hypoxia 85% on room air. Chest x-ray did not show any acute cardiopulmonary abnormality. Patient was felt to have acute bronchitis due to Solu-Medrol and aerosols. Respiratory panel negative. Patient had echo which showed 3+ TR, RVSP 80 mmHg. Mean aortic valve gradient 30 mmHg with stable appearing mechanical aortic valve apparatus. EF 65% with stage III diastolic dysfunction. Overall clinical assessment consistent with acute on chronic diastolic heart failure and severe pulmonary hypertension. Discussed with instructional services specialist. Patient will need outpatient MT. Subcontract Administrator advised Lasix 40 mg twice daily. Patient also needs pulmonary clinic to rule out secondary causes of severe pulmonary hypertension, PFT and oxygen evaluation. Discharge medication reconciliation done. Discharge follow-up instructions completed. Discharge process discussed with the patient and all questions were answered to patient's satisfaction. Patient is discharged on tapering dose of prednisone. Home oxygen eval shows 88% on room air on walking and 92% on 2 L of oxygen. 92% at rest on room air. Patient is ambulatory in home and in the community and requires home oxygen with portability on ambulation. Total time spent, exact 35 minutes on discharge meds reconciliation, examination, coordination of care with nurses and ancillary staff, review of imaging and blood test and discussion with the patient on follow-up instructions I have discussed my assessment with Shaun ARECHIGA and orders have been reviewed. [] Subjective: Seen and examined. Patient has dyspnea on exertion. On echo patient found to have severe pulmonary hypertension, RVSP 88 mmHg with 3+ TR. Patient does not have a smoking history or alcohol use. Denies chronic lung disease. No chest pain. Telemetry reviewed. Chronic A. fib - Physical Exam Vitals/I&O's: Vital Signs Temp Pulse Resp BP Pulse Ox 97.8 F 62 16 120/56 L 92 10/05/19 08:42 10/05/19 08:42 10/05/19 08:42 10/05/19 08:42 10/05/19 11:33 Oxygen Flow Rate (L/min) [ 2 AMBULATION with Oxygen] Oxygen Flow Rate (L/min) 2 Oxygen Delivery Method Nasal Cannula Weight: 190 lb 7.67 oz Body Mass Index (BMI) 28.7 Intake and Output for Last 24 Hours 10/03/19 10/04/19 10/05/19 23:59 23:59 23:59 Intake Total 273.25 / 273.25 1600 / 1920 520 / 520 Balance 273.25 / 273.25 1600 / 1920 520 / 520 General: Alert, Oriented x3, Cooperative HEENT: Atraumatic, PERRLA, EOMI, Normocephalic Neck: Supple, No JVD, Negative Carotid Bruits Lungs: Clear to auscultation, No rhonchi, No wheeze, No rales, Diminished - Diminished in bilateral lung bases. Cardiovascular: Regular rate, Regular Rhythm, Normal S1, Murmur - Systolic murmur present over left lower sternal border. Abdomen: Bowel Sounds Present, Soft, Non Tender, Non-Distended Extremities: No edema, Capillary Refill Less than 3 Seconds Skin: No rashes, No breakdown Musculoskeletal: No Tenderness to Palpation of Joints or Extremities, Arthritic Changes Neurological: Cranial nerves II-XII grossly intact, Neuro grossly intact Psych/Mental Status: Normal Affect, Appropriate Microbiology Past 72 Hours 10/03/19 19:10 Mucosa - Nasopharyngeal Respiratory Panel (PCR) - Final Laboratory Results 10/05/19 05:35: PT 35.4 H, INR 3.5 H* 10/05/19 05:35: Sodium 141, Potassium 4.5, Chloride 107, Carbon Dioxide 28.0, Anion Gap 6, BUN 33 H, Creatinine 1.29, Estim Creat Clear Calc 43.45, Est GFR (MDRD) Af Amer 69, Est GFR (MDRD) Non-Af 57 L, BUN/Creatinine Ratio 25.6 H, Glucose 163 H, Calcium 9.5 Code Visit Inpatient E&M: 50852 Disch Hosp
== END 2019-10-05 11:42 | disposition home or self-care (01) ==
LOC: ED 15:34 → PCU 17:00
PROVIDERS: Admitting Provider Student in an Organized Health Care Education/Training Program; Emergency Provider Emergency Medicine; PCP Family Medicine; Visit Provider Internal Medicine
DX: J20.9 Acute bronchitis, unspecified (principal); R09.02 Hypoxemia; I50.32 Chronic diastolic (congestive) heart failure; I11.0 Hypertensive heart disease with heart failure; E78.5 Hyperlipidemia, unspecified; F32.9 Major depressive disorder, single episode, unspecified; F41.9 Anxiety disorder, unspecified; I27.21 Secondary pulmonary arterial hypertension; I08.1 Rheumatic disorders of both mitral and tricuspid valves; I25.10 Atherosclerotic heart disease of native coronary artery without angina pectoris; I48.20 Chronic atrial fibrillation, unspecified; Z79.899 Other long term (current) drug therapy; Z79.01 Long term (current) use of anticoagulants; Z95.2 Presence of prosthetic heart valve; Z95.1 Presence of aortocoronary bypass graft; Z87.891 Personal history of nicotine dependence
CPT/HCPCS: 36415; 71045; 80048; 83880; 84484; 85025; 85610; 85730; 87633; 93005; 93306; 94640; 94667; 94668; 96365; 96366; 96375; 96376; 97802; 99218; 99285; J7050; Q9957; A4216; G0378

== ENCOUNTER 2019-10-14 09:24 | Outpatient (RCR) | payer MEDICARE, SELFPAY ==
[2019-08-23 09:18] VITALS: BMI 28.5
[2019-10-03 17:48] VITALS: BMI 28.7
[2019-10-14 09:36] LABS: Prothrombin Time Fingerstick 32.9 SEC (11.9-14.4)
== END 2019-10-14 18:00 | disposition home or self-care (01) ==
LOC: LAB 09:24
PROVIDERS: Family Provider Family Medicine; PCP Family Medicine; Referring Provider Internal Medicine Cardiovascular Disease; Visit Provider Internal Medicine Cardiovascular Disease
DX: Z79.01 Long term (current) use of anticoagulants (principal); Z95.2 Presence of prosthetic heart valve
CPT/HCPCS: 36416; 85610

== ENCOUNTER 2019-10-31 08:43 | Outpatient (CLI) | payer MEDICARE, SELFPAY ==
[2019-10-03 17:48] VITALS: BMI 28.7
--- NOTE | 2019-10-31 08:44 | ECHOTEE_ITS ---
Reason For Study: EVAL VALVE REPL Medication MT probe 6VT-D (SN [id number]) passed without difficulty. No complications were noted. Cetacaine Topical Murdock given X3 orally. Versed 1.0 mg given slow IVP. Fentanyl 50 mcg given slow IVP. Performed a rapid injection of agitated mix of 9 cc saline and 1cc air to assess for atrial septal defect. Left Ventricle Normal LV size. Left ventricular systolic function is normal. The estimated ejection fraction is 60 %. No regional wall motion abnormalities noted. Right Ventricle Mildly dilated right ventricle. Mild to moderate global right ventricular systolic dysfunction. Atria Intact atrial septum. The left atrium is severely enlarged. The right atrium is moderately enlarged. Mitral Valve Bileaflet diffuse mitral valve thickening. Moderate (2+) eccentric mitral valve insufficiency. Tricuspid Valve Normal tricuspid valve. Mild to moderate (1-2+) tricuspid valve insufficiency. Aortic Valve Mild (1+) aortic valve insufficiency. Stable appearing mechanical aortic valve apparatus. Pulmonic Valve Normal pulmonic valve. Pericardium No pericardial effusion. Interpretation Summary Normal LV size. Left ventricular systolic function is normal. The estimated ejection fraction is 60 %. Bileaflet diffuse mitral valve thickening. Moderate (2+) eccentric mitral valve insufficiency. Stable appearing mechanical aortic valve apparatus. Mild (1+) aortic valve insufficiency. Ordering Physician: Albert Mojica Referring Physician: BASHIR HANSON Performed By: Gina Luna, RDCS, RVT
== END 2019-10-31 12:15 | disposition home or self-care (01) ==
LOC: CVS 08:44
PROVIDERS: PCP Family Medicine; Referring Provider Internal Medicine Cardiovascular Disease; Visit Provider Internal Medicine Cardiovascular Disease
DX: I25.119 Atherosclerotic heart disease of native coronary artery with unspecified angina pectoris (principal); Z95.1 Presence of aortocoronary bypass graft; I35.2 Nonrheumatic aortic (valve) stenosis with insufficiency; Z95.2 Presence of prosthetic heart valve; I48.20 Chronic atrial fibrillation, unspecified; I27.21 Secondary pulmonary arterial hypertension; I10 Essential (primary) hypertension
CPT/HCPCS: 93312; 93320; 93325; J7040; A4216; J1940

== ENCOUNTER 2020-01-26 13:06 | Outpatient (RCR) | payer MEDICARE, SELFPAY ==
[2019-10-03 17:48] VITALS: BMI 28.7
[2020-01-26 13:15] LABS: Prothrombin Time Fingerstick 29.4 SEC (11.9-14.4)
== END 2020-01-26 18:00 | disposition home or self-care (01) ==
LOC: LAB 13:06
PROVIDERS: Family Provider Family Medicine; PCP Family Medicine; Referring Provider Internal Medicine Cardiovascular Disease; Visit Provider Internal Medicine Cardiovascular Disease
DX: Z95.2 Presence of prosthetic heart valve (principal); Z79.01 Long term (current) use of anticoagulants
CPT/HCPCS: 36416; 85610

== ENCOUNTER 2020-03-07 09:46 | Outpatient (RCR) | payer MEDICARE, SELFPAY ==
[2019-10-03 17:48] VITALS: BMI 28.7
[2020-02-27 11:11] LABS: Prothrombin Time Fingerstick 43.9 SEC (11.9-14.4)
[2020-02-27 12:08] LABS: Prothrombin Time (Protime)PT. 36.6 SECONDS (11.7-14.9)
[2020-02-27 12:19] LABS: International Normalized Ratio 3.7
[2020-03-07 09:56] LABS: Prothrombin Time Fingerstick 29.7 SEC (11.9-14.4)
== END 2020-03-07 18:00 | disposition home or self-care (01) ==
LOC: LAB 09:46
PROVIDERS: Family Provider Family Medicine; PCP Family Medicine; Referring Provider Internal Medicine Cardiovascular Disease; Visit Provider Internal Medicine Cardiovascular Disease
DX: Z95.2 Presence of prosthetic heart valve (principal); Z79.01 Long term (current) use of anticoagulants
CPT/HCPCS: 36415; 36416; 85610

== ENCOUNTER 2020-04-09 08:41 | Outpatient (RCR) | payer MEDICARE, SELFPAY ==
[2019-10-03 17:48] VITALS: BMI 28.7
[2020-03-30 10:31] LABS: Prothrombin Time Fingerstick 42.4 SEC (11.9-14.4)
[2020-03-30 11:36] LABS: International Normalized Ratio 3.5; Prothrombin Time (Protime)PT. 34.5 SECONDS (11.7-14.9)
[2020-04-09 09:35] LABS: International Normalized Ratio 2.7; Prothrombin Time (Protime)PT. 27.9 SECONDS (11.7-14.9)
[2020-04-09 09:47] LABS: Anion Gap 5 (5-15); BUN 21 mg/dL (7-18); BUN/Creat Ratio 20.6 RATIO (10-20); Chloride 102 mmol/L (98-107); Creatinine, Serum 1.02 mg/dL (0.70-1.30); EST Glomerular Filtration Rate 74 mL/min (>60); Est Glom Filt Rate - Afr Amer 90 mL/min (>60); Glucose 136 mg/dL (74-106); Sodium Level 139 mmol/L (136-145)
== END 2020-04-23 18:00 | disposition home or self-care (01) ==
LOC: LAB 08:41
PROVIDERS: Family Provider Family Medicine; PCP Family Medicine; Referring Provider Internal Medicine Cardiovascular Disease; Visit Provider Internal Medicine Cardiovascular Disease
DX: Z95.2 Presence of prosthetic heart valve (principal); Z79.01 Long term (current) use of anticoagulants
CPT/HCPCS: 36415; 36416; 80048; 85610

== ENCOUNTER → 2020-04-20 09:57 | Outpatient (CLI) | payer MEDICARE, SELFPAY ==
[2020-04-03 13:34] VITALS: BMI 27.9
[2020-04-20 10:54] LABS: Anion Gap 4 (5-15); BUN 15 mg/dL (7-18); BUN/Creat Ratio 15.1 RATIO (10-20); Calcium,Total 8.9 mg/dL (8.5-10.1); Chloride 106 mmol/L (98-107); EST Glomerular Filtration Rate 76 mL/min (>60); Est Glom Filt Rate - Afr Amer 92 mL/min (>60); Glucose 132 mg/dL (74-106); Potassium 3.7 mmol/L (3.5-5.1); Sodium Level 140 mmol/L (136-145)
== END ==
PROVIDERS: PCP Family Medicine; Referring Provider Internal Medicine Cardiovascular Disease; Visit Provider Internal Medicine Cardiovascular Disease
DX: I25.119 Atherosclerotic heart disease of native coronary artery with unspecified angina pectoris (principal); Z95.1 Presence of aortocoronary bypass graft; I35.2 Nonrheumatic aortic (valve) stenosis with insufficiency; I48.11 Longstanding persistent atrial fibrillation; I27.21 Secondary pulmonary arterial hypertension; E78.5 Hyperlipidemia, unspecified; I11.0 Hypertensive heart disease with heart failure; I50.32 Chronic diastolic (congestive) heart failure; Z79.01 Long term (current) use of anticoagulants; Z95.2 Presence of prosthetic heart valve
CPT/HCPCS: 36415; 80048

== ENCOUNTER 2020-05-08 11:23 | Outpatient (RCR) | payer MEDICARE, SELFPAY ==
[2020-04-03 13:34] VITALS: BMI 27.9
== END 2020-05-08 18:00 | disposition home or self-care (01) ==
LOC: LAB 11:23
PROVIDERS: Family Provider Family Medicine; PCP Family Medicine; Referring Provider Internal Medicine Cardiovascular Disease; Visit Provider Internal Medicine Cardiovascular Disease
DX: Z95.2 Presence of prosthetic heart valve (principal); Z79.01 Long term (current) use of anticoagulants
CPT/HCPCS: 36416; 85610

== ENCOUNTER 2020-06-11 13:04 | Outpatient (RCR) | payer MEDICARE, SELFPAY ==
[2020-04-03 13:34] VITALS: BMI 27.9
[2020-06-11 13:48] LABS: International Normalized Ratio 2.5; Prothrombin Time (Protime)PT. 26.8 SECONDS (11.7-14.9)
[2020-06-11 14:05] LABS: Anion Gap 7 (5-15); BUN 20 mg/dL (7-18); BUN/Creat Ratio 17.2 RATIO (10-20); Chloride 106 mmol/L (98-107); Creatinine, Serum 1.16 mg/dL (0.70-1.30); EST Glomerular Filtration Rate 64 mL/min (>60); Est Glom Filt Rate - Afr Amer 77 mL/min (>60); Glucose 120 mg/dL (74-106); Potassium 3.7 mmol/L (3.5-5.1); Sodium Level 141 mmol/L (136-145)
== END 2020-06-11 18:00 | disposition home or self-care (01) ==
LOC: LAB 13:04
PROVIDERS: Family Provider Family Medicine; PCP Family Medicine; Referring Provider Internal Medicine Cardiovascular Disease; Visit Provider Internal Medicine Cardiovascular Disease
DX: Z95.2 Presence of prosthetic heart valve (principal); Z79.01 Long term (current) use of anticoagulants
CPT/HCPCS: 36415; 80048; 85610

== ENCOUNTER 2020-07-18 11:37 | Outpatient (RCR) | payer MEDICARE, SELFPAY ==
[2020-04-03 13:34] VITALS: BMI 27.9
[2020-07-18 11:50] LABS: Prothrombin Time Fingerstick 39.2 SEC (11.9-14.4)
[2020-07-18 12:15] LABS: International Normalized Ratio 3.4; Prothrombin Time (Protime)PT. 34.1 SECONDS (11.7-14.9)
== END 2020-07-18 18:00 | disposition home or self-care (01) ==
LOC: LAB 11:37
PROVIDERS: Family Provider Family Medicine; PCP Family Medicine; Referring Provider Internal Medicine Cardiovascular Disease; Visit Provider Internal Medicine Cardiovascular Disease
DX: I48.11 Longstanding persistent atrial fibrillation (principal); Z79.01 Long term (current) use of anticoagulants
CPT/HCPCS: 36415; 36416; 85610

== ENCOUNTER 2020-08-09 12:56 | Outpatient (RCR) | payer MEDICARE, SELFPAY ==
[2020-04-03 13:34] VITALS: BMI 27.9
[2020-07-30 16:30] LABS: Prothrombin Time (Protime)PT. 37.7 SECONDS (11.7-14.9)
[2020-07-30 19:16] LABS: International Normalized Ratio 3.9
[2020-07-31 08:25] LABS: Prothrombin Time Fingerstick 47.2 SEC (11.9-14.4)
[2020-08-09 13:36] LABS: Prothrombin Time Fingerstick 37.4 SEC (11.9-14.4)
== END 2020-08-09 18:00 | disposition home or self-care (01) ==
LOC: LAB 12:56
PROVIDERS: Family Provider Family Medicine; PCP Family Medicine; Referring Provider Internal Medicine Cardiovascular Disease; Visit Provider Internal Medicine Cardiovascular Disease
DX: Z95.2 Presence of prosthetic heart valve (principal); Z79.01 Long term (current) use of anticoagulants
CPT/HCPCS: 36416; 85610

== ENCOUNTER 2020-09-03 10:20 | Outpatient (RCR) | payer MEDICARE, SELFPAY ==
[2020-04-03 13:34] VITALS: BMI 27.9
== END 2020-09-03 18:00 | disposition home or self-care (01) ==
LOC: LAB 10:20
PROVIDERS: Family Provider Family Medicine; PCP Family Medicine; Referring Provider Internal Medicine Cardiovascular Disease; Visit Provider Internal Medicine Cardiovascular Disease
DX: I48.11 Longstanding persistent atrial fibrillation (principal); Z79.01 Long term (current) use of anticoagulants
CPT/HCPCS: 36416; 85610

== ENCOUNTER 2020-09-14 13:06 | Outpatient (RCR) | payer MEDICARE, SELFPAY ==
[2020-04-03 13:34] VITALS: BMI 27.9
== END 2020-09-14 23:59 ==
LOC: IMMUN 13:06
PROVIDERS: PCP Family Medicine; Visit Provider Family Medicine
DX: Z23 Encounter for immunization (principal)
CPT/HCPCS: 0011A; 0012A; 91301

== ENCOUNTER 2020-10-11 12:59 | Outpatient (RCR) | payer MEDICARE, SELFPAY ==
[2020-04-03 13:34] VITALS: BMI 27.9
[2020-10-11 13:05] LABS: Prothrombin Time Fingerstick 32.8 SEC (11.9-14.4)
== END 2020-10-11 18:00 | disposition home or self-care (01) ==
LOC: LAB 12:59
PROVIDERS: Family Provider Family Medicine; PCP Family Medicine; Referring Provider Internal Medicine Cardiovascular Disease; Visit Provider Internal Medicine Cardiovascular Disease
DX: I48.11 Longstanding persistent atrial fibrillation (principal); Z79.01 Long term (current) use of anticoagulants
CPT/HCPCS: 36416; 85610

== ENCOUNTER 2020-11-08 18:40 | Inpatient (IN) | payer MEDICARE, SELFPAY ==
[2020-11-01 15:16] VITALS: BMI 28.8
[2020-11-08] VITALS (11 sets, daily range): BP systolic 120–153; BP diastolic 66–102; PULSE 64–87; RESP 16–24; TEMP 36.8–37.4; O2SAT 60–91; BMI 30.2; BMI 29.6
--- NOTE | 2020-11-08 18:53 | EKG12_ITS ---
Test Reason : SOB Blood Pressure : / mmHG Vent. Rate : 082 BPM Atrial Rate : 100 BPM P-R Int : 000 ms QRS Dur : 088 ms QT Int : 410 ms P-R-T Axes : 000 -31 068 degrees QTc Int : 479 ms Atrial fibrillation with premature ventricular or aberrantly conducted complexes Left axis deviation Nonspecific T wave abnormality Prolonged QT Abnormal ECG Confirmed by MARU WAGONER, RUSSELL ([id number]), newspaper editor managing DEMETRI BRIDGES ([id number]) on 11/12/2020 10:30:04 AM Referred By: FLYNN Confirmed By:RUSSELL MAHONEY MD
--- NOTE | 2020-11-08 18:55 | ED.VIS.GEN ---
History of Present Illness Chief Complaint: Shortness of Breath Informant: Patient Onset: Today Context: Gradual Onset Timing: Continuous Current Severity: Moderate Maximum Severity: Moderate Narrative: Patient is an 84-year-old male medical history significant for aortic valve replacement on Coumadin, pulmonary hypertension, and CHF who presents to the emergency department shortness of breath. Patient states that over the past 12 hours, he had increasing shortness of breath. He states that he does take Lasix, but has had a 9 pound weight gain. He said a scant cough. He describes exertional dyspnea. He denies any chest pain. He is not on oxygen chronically, but states that he will use it from time to time. Today, he was on 2 L and had a pulse ox of 88%. He did state that today, he had a T-max of about 100. On arrival, the patient was profoundly hypoxic. He was in the mid 60s on room air. However, he is in no distress. Prior similar symptoms: Yes Recent Illness/Hospitalization: No Past Medical History - Allergies and Home Meds Allergies/Adverse Reactions: Allergies No Known Allergies Allergy (Verified 11/08/20 18:40) Primary Care Physician: Fernando Cortez MD [Primary Care Provider] - Prior records reviewed: Yes Past Medical History: - - Aortic valve disease, hypertension, hyperlipidemia, pulmonary hypertension, congestive heart failure Surgical History: - - Tonsillectomy, CABG x2, AVR with mechanical valve, cholecystectomy, cardiac ablation, dental surgery. Smoking Status: Former smoker - Family History Maternal Family History: Family History (Last Reviewed 11/01/20 @ 15:[address] Albert Mojica MD) Father No problems noted. Mother Diabetes Family History: Reports: Cancer, Diabetes Paternal Family History: Family History (Last Reviewed 11/01/20 @ 15:[address] Albert Mojica MD) Father No problems noted. Mother Diabetes Family History: Reports: - - Patient notes a paternal family history of heart disease. Review of Systems General: Reports: Fever. Denies: Chills, Sweats Eyes: Denies: Visual changes - bilaterally, Diplopia ENT: Denies: Rhinorrhea, Sore throat Cardiovascular: Denies: Chest pain, Palpitations Respiratory: Reports: Dyspnea, Cough. Denies: Dyspnea on exertion Gastrointestinal: Denies: Abdominal pain, Nausea, Vomiting, Diarrhea, Melena, Hematochezia Genitourinary: Denies: Dysuria, Hematuria, Frequency Musculoskeletal: Denies: Back pain, Extremity Pain Skin: Denies: Rash, Wounds Neurological: Denies: Headache, Weakness, Numbness Physical Exam Vital Signs/Narrative: Vital Signs Temp Pulse Resp BP Pulse Ox 11/08/20 18:46 98.2 F 87 22 H 144/102 H 90 11/08/20 18:43 90 11/08/20 18:40 98.2 F 87 24 H 144/102 H 60 Inital Vital Signs reviewed: Yes General: Well nourished, Well developed, No Acute Distress Head: Normocephalic, Atraumatic Eyes: Perrl, EOMI ENT: Moist mucous membranes, No rhinorrhea Neck: Supple, Nontender Cardiovascular: Regular rate, Regular rhythm, Murmur Respiratory: No distress, Chest nontender, Diminished, Decreased Air Movement Abdomen: Soft, Nontender, Nondistended, Normal bowel sounds Back: Nontender, Normal Inspection Extremities: Nontender, No edema Skin: Normal color, No rash Neurological: Alert, Oriented x3, Cranial nerves II-XII grossly intact, Normal Strength, Normal Sensation Psychological: Normal affect, Normal Mood Diagnostic/Tx/Re-eval Chest X-Ray - ED: 1 View, Read by ED Physician, Read by Radiologist, Normal, Mediastinum, Bony Structures, Cardiomegaly, Right Infiltrate Clinical Impression(s) from Imaging Studies Chest X-Ray 11/08/20 19:55 IMPRESSION: Mild interstitial prominence bilaterally. Right perihilar mild infiltrate. Electronically Signed: Jason Alcantara DO at 19:53 EDT Tel [phone], Service support , Abnormal Lab Results 11/08/20 11/08/20 11/08/20 19:30 19:30 19:30 WBC 17.0 H RBC 4.04 L Hgb 12.5 L Hct 37.4 L MCV 92.6 MCH 30.9 MCHC 33.4 RDW Std Deviation 46.2 H RDW Coeff of Swapnil 13.4 Plt Count 217 MPV 9.6 Immature Gran % (Auto) 1.200 H Neut % (Auto) 82.1 H Lymph % (Auto) 5.5 L [place] % (Auto) 9.6 Eos % (Auto) 1.1 Baso % (Auto) 0.5 Absolute Neuts (auto) 14.0 H Absolute Lymphs (auto) 0.93 Nucleated RBC % 0 Differential Comment SEE COMMENT Diff Path Review May foll Platelet Estimate ADEQUATE RBC Morphology N CHROM Anisocytosis RARE Macrocytosis RARE PT 33.2 H INR 3.3 Sodium 140 Potassium 3.6 Chloride 108 H Carbon Dioxide 25.0 Anion Gap 7 BUN 19 H Creatinine 1.04 Estim Creat Clear Calc 52.98 Est GFR (MDRD) Af Amer 88 Est GFR (MDRD) Non-Af 73 BUN/Creatinine Ratio 18.3 Glucose 144 H Lactic Acid Calcium 8.4 L Total Bilirubin 2.50 H AST 25 ALT 30 Alkaline Phosphatase 88 Troponin I 0.017 B-Natriuretic Peptide Total Protein 7.0 Albumin 3.7 Globulin 3.3 Albumin/Globulin Ratio 1.1 11/08/20 11/08/20 19:30 20:10 WBC RBC Hgb Hct MCV MCH MCHC RDW Std Deviation RDW Coeff of Swapnil Plt Count MPV Immature Gran % (Auto) Neut % (Auto) Lymph % (Auto) [place] % (Auto) Eos % (Auto) Baso % (Auto) Absolute Neuts (auto) Absolute Lymphs (auto) Nucleated RBC % Differential Comment Diff Path Review Platelet Estimate RBC Morphology Anisocytosis Macrocytosis PT INR Sodium Potassium Chloride Carbon Dioxide Anion Gap BUN Creatinine Estim Creat Clear Calc Est GFR (MDRD) Af Amer Est GFR (MDRD) Non-Af BUN/Creatinine Ratio Glucose Lactic Acid 1.2 Calcium Total Bilirubin AST ALT Alkaline Phosphatase Troponin I B-Natriuretic Peptide 252.2 H Total Protein Albumin Globulin Albumin/Globulin Ratio - Rhythm Strip Rhythm Strip: A-fib Rate: 80 Ectopy: PAC(s) - EKG Initial EKG Interpretation: No Acute Injury Pattern, Atrial Fibrillation, Non-Specific ST Changes Prior: Unchanged - Medical Decision Making The patient presents with increasing shortness of breath. He does admit to weight gain. He is very rhonchorous, but has no focal change in lung sounds. Metabolic work-up was pursued. The patient does have leukocytosis. His INR is mildly supratherapeutic. Chest x-ray was obtained. Was reviewed by both myself and the radiologist. He does have chronic pulmonary changes that appear to be fibrotic. He also has a right perihilar infiltrate. Lactic acid is negative. However, given the patient's leukocytosis, pneumonia, and hypoxia I do feel that he is going require admission. His volume status appears to be maintained. Patient was discussed with the hospitalist. Impression 1. Community-acquired pneumonia 2. Hypoxia ED Disposition - Plan for ED Patient: Referrals: Fernando Cortez MD [Primary Care Provider] -
[2020-11-08 19:53] LABS: Absolute Lymphocyte Count 0.93 X10^3/uL (0.83-4.51); Basophil# 0.09 X10^3/uL; Basophil% 0.5 % (0-1); Eosinophil# 0.18 X10^3/uL; Eosinophils% 1.1 % (0-5); Hematocrit 37.4 % (40-54); Hemoglobin 12.5 g/dL (13.0-16.5); Lymphocyte # 0.93 X10^3/ul (4.0); Lymphocyte % 5.5 % (19-41); Mean Corp Hgb Conc 33.4 g/dL (32-36); Mean Corpuscular Hgb 30.9 pg (27.0-32.0); Mean Corpuscular Volume 92.6 fL (80-94); Mean Platelet Vol. 9.6 fl (6.2-12.0); Monocyte# 1.64 X10^3/uL; Monocyte% 9.6 % (0-10); NRBC Flagged by Analyzer 0 % (0-5); Neutrophil # 13.96 X10^3/uL (2.7-7.7); Neutrophil % 82.1 % (47-70); POSITIVE DIFFERENTIAL YES; Platelet Count 217 K/mm3 (150-450); RBC Distribution Width CV 13.4 % (11.6-14.6); RBC Distribution Width SD 46.2 fl (35.1-43.9); Red Blood Count 4.04 M/mm3 (4.6-6.2)
--- NOTE | 2020-11-08 19:55 | RAD_ITS ---
STUDY: X-RAY CHEST REASON FOR EXAM: Male, 84 years old. sob TECHNIQUE: Frontal view COMPARISON: 10/03/2019 FINDINGS: Sternotomy wires are again noted. The lungs are expanded. Mild interstitial prominence bilaterally. Right perihilar mild infiltrate. Normal size heart. Normal mediastinum and wendy. Normal visualized pulmonary arteries. Calcified aortic arch and descending thoracic aorta. Normal visualized thoracic spine. Normal visualized ribs, clavicles, and shoulders. There is no demonstrated abnormality of the visualized soft tissue structures of the upper abdomen. RAD/Chest 1 View (Portable) IMPRESSION: Mild interstitial prominence bilaterally. Right perihilar mild infiltrate. Electronically Signed: Jason Alcantara DO at 19:53 EDT Tel [phone], Service support ,
[2020-11-08 20:09] LABS: Differential Indicated SCAN CRITERIA MET; International Normalized Ratio 3.3; Prothrombin Time (Protime)PT. 33.2 SECONDS (11.7-14.9)
[2020-11-08 20:22] LABS: ALB/GLOB Ratio 1.1 RATIO (0.9-2.4); AST(SGOT) 25 U/L (15-37); Alanine Aminotransfer ALT/SGPT 30 U/L (16-61); Albumin, Serum 3.7 g/dL (3.2-5.0); Alkaline Phosphatase 88 U/L (45-117); Anion Gap 7 (5-15); BUN 19 mg/dL (7-18); BUN/Creat Ratio 18.3 RATIO (10-20); Calcium,Total 8.4 mg/dL (8.5-10.1); Chloride 108 mmol/L (98-107); Creatinine, Serum 1.04 mg/dL (0.70-1.30); EST Glomerular Filtration Rate 73 mL/min (>60); Est Glom Filt Rate - Afr Amer 88 mL/min (>60); Estimated Creatinine Clearance 52.98 ml/min; Globulin 3.3 g/dL (2.2-4.2); Glucose 144 mg/dL (74-106); Potassium 3.6 mmol/L (3.5-5.1); Sodium Level 140 mmol/L (136-145)
[2020-11-08 20:30] LABS: Anisocytosis RARE; Macrocytosis RARE; Platelet Estimate ADEQUATE (ADEQ); Red Cell Morphology N CHROM NORMAL (NORM C&C)
[2020-11-08] MEDS: Ceftriaxone 1 GM/50 ML BAG IV (20:47)
[2020-11-08 20:50] LABS: Lactic Acid 1.2 mmol/L (0.4-1.9)
[2020-11-08 20:50] LABS: BNP,B-Type NATRIURETIC PEPTIDE 252.2 pg/mL (0-100)
[2020-11-08] MEDS: Furosemide 40 MG/4 ML Vial IV (22:22)
--- NOTE | 2020-11-08 22:22 | PCM.HP.STD ---
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 Comment: CABG x 2 SVG-D1 and SVG-OM w/ AVR using a [address] [employer] Mechanical Prosthesis 04/30/2001 (3) H/O coronary artery bypass surgery Status: Resolved Comment: CABG x 2 SVG-D1 and SVG-OM w/ AVR using a [address] [employer] Mechanical Prosthesis 04/30/2001 (4) Nonrheumatic aortic (valve) stenosis with insufficiency Status: Chronic (5) H/O aortic valve replacement Status: Chronic Comment: AVR using a [address] [employer] Mechanical Prosthesis (6) Longstanding persistent atrial fibrillation Status: Chronic (7) Secondary pulmonary arterial hypertension Status: Chronic (8) Left ventricular diastolic dysfunction Status: Chronic (9) Chronic diastolic heart failure Status: Chronic (10) Essential (primary) hypertension Status: Chronic (11) Hyperlipidemia Status: Chronic Qualifiers: Hyperlipidemia type: pure hypercholesterolemia Qualified Code(s): E78.00 - Pure hypercholesterolemia, unspecified; E78.0 - Pure hypercholesterolemia (12) halfway current use of anticoagulant Status: Chronic (13) Community acquired pneumonia Status: Acute (14) Heart failure Status: Acute Qualifiers: Heart failure type: diastolic History of Present Illness Date of Admission: 11/08/20 Chief Complaint: Shortness of breath The patient is a 84 year old M with a significant history of heart failure with preserved ejection fraction; status post mechanical aortic valve replacement; CAD status post CABG; obstructive sleep apnea; and secondary pulmonary hypertension who presented to the emergency department with a 3-day history of progressively worsening shortness of breath. Associated with symptom is chills and fever. He reports home temperature of around 100 Fahrenheit. Further he has anorexia and fatigue. He has productive cough with dark sputum. Reportedly his home oxygen was around 60%. He denies any change in taste or smell sensation. Past Medical History Past Medical History (Chronic Problems): Chronic Problems (Last Reviewed 11/08/20 @ 22:[address] Karl Lagos MD) Atherosclerosis of coronary artery of [place] heart with angina pectoris (Chronic) CABG x 2 SVG-D1 and SVG-OM w/ AVR using a [address] [employer] Mechanical Prosthesis 04/30/2001 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) H/O aortic valve replacement (Chronic 04/30/01) AVR using a [address] [employer] Mechanical Prosthesis Longstanding persistent atrial fibrillation (Chronic) Secondary pulmonary arterial hypertension (Chronic) Left ventricular diastolic dysfunction (Chronic) Chronic diastolic heart failure (Chronic) Essential (primary) hypertension (Chronic) Hyperlipidemia (Chronic) halfway current use of anticoagulant (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 (Chronic) Z79.01 Daytime somnolence R40.0 Gasping for breath R06.89 Non-rheumatic tricuspid valve insufficiency I36.1 Nonrheumatic mitral (valve) insufficiency I34.0 Obstructive sleep apnea G47.33 Snoring R06.83 Acute blood loss anemia Onset Date: 02/10/19 D62 Acute gastritis with hemorrhage Onset Date: 02/10/19 K29.01 Pneumonia (Resolved) J18.9 Hypokalemia (Inactive) E87.6 Localized edema (Inactive) R60.0 Allergies No Known Allergies Allergy (Verified 11/08/20 18:40) Home Medications: Ambulatory Orders Medication Instructions Recorded magnesium oxide 400 mg (241.3 mg 400 mg PO BREAKFAST tab 10/01/17 magnesium) tablet Cholecalciferol (Vitamin D3) 125 mcg PO DAILY 10/03/19 [Vitamin D3] warfarin 1 mg tablet 1 mg PO DAILY 10/14/19 pravastatin 80 mg tablet 80 mg PO DAILY #90 tab 02/06/20 warfarin 4 mg tablet 4 mg PO DAILY #90 tab 02/27/20 furosemide 40 mg tablet 80 mg PO BID #360 tab 06/05/20 escitalopram oxalate 10 mg tablet 10 mg PO DAILY tab 03/11/21 losartan 100 mg tablet 100 mg PO DAILY #90 tab 11/01/20 potassium chloride 20 mEq 20 meq PO DAILY tab 11/01/20 tablet,extended release Amlodipine Besylate [Norvasc] 10 mg PO DAILY 11/08/20 Surgical History: Surgical History (Last Reviewed 11/08/20 @ 22:[address] Karl Lagos MD) H/O coronary artery bypass surgery (Resolved) Onset Date: 04/30/01 Z95.1 CABG x 2 SVG-D1 and SVG-OM w/ AVR using a [address] [employer] Mechanical Prosthesis 04/30/2001 H/O aortic valve replacement (Chronic) Onset Date: 04/30/01 Z95.2 AVR using a [address] [employer] Mechanical Prosthesis History of colonoscopy Onset Date: 02/10/19 Z98.890 History of esophagogastroduodenoscopy Onset Date: 02/10/19 Z98.890 History of radiofrequency ablation procedure for cardiac arrhythmia Onset Date: 12/26/14 Z98.890 RFA for afib w/ PVI By Dr Lee History of transesophageal echocardiography (MT) Onset Date: 10/31/19 Z92.89 Left ventricular systolic function is normal. The estimated ejection fraction is 60 %. [place] diffuse mitral valve thickening. Moderate (2+) eccentric mitral valve insufficiency. Stable appearing mechanical aortic valve apparatus. Mild (1+) aortic valve insufficiency. Surgical History: - - Tonsillectomy, CABG x2, AVR with mechanical valve, cholecystectomy, cardiac ablation, dental surgery. Psychiatric History: Anxiety, Depression Smoking Status: Never smoker - *Family History Maternal Family History: Family History (Last Reviewed 11/08/20 @ 22:[address] Karl Lagos MD) Father No problems noted. Mother Diabetes History Items: Cancer, Diabetes Paternal Family History: Family History (Last Reviewed 11/08/20 @ 22:[address] Karl Lagos MD) Father No problems noted. Mother Diabetes History Items: - - Patient notes a paternal family history of heart disease. Review of Systems Constitutional: Reports: Anorexia, Chills, Fever, Weight Change, Fatigue HEENT: Denies: Head Aches, Sinus Congestion, Sinus Drainage Cardiovascular: Denies: Chest Pain, Palpitations Respiratory: Reports: Shortness of Breath, Sputum production, Wheezing. Denies: Cough Gastrointestinal: Denies: Abdominal Pain, Nausea, Vomiting Genitourinary: Denies: Dysuria Musculoskeletal: Denies: Joint Pain, Joint Tenderness Skin: Denies: Rash, Wounds Neurological: Denies: Numbness, Tingling, Focal weakness Psychiatric: Denies: Anxiety, Depression, Homicidal Ideations, Suicidal Ideations Hematologic/ Lymphatic: Denies: Easy Bruising, Easy Bleeding VTE Information - Inpt Only VTE Present on Admission: No VTE Mechan Device Prophylaxis: None VTE Pharm Prophylaxis ordered?: No Reason prophylaxis not ordered:: Treatment Not Indicated - Home Coumadin continued Patient Problems: Active and Suspected Problems (Last Reviewed 11/08/20 @ 22:[address] Karl Lagos MD) Respiratory insufficiency (Acute) Community acquired pneumonia (Acute) Heart failure (Acute) - Physical Exam Vitals/I&O's: Vital Signs Temp Pulse Resp BP Pulse Ox 99 F 65 20 H 120/74 90 11/08/20 21:39 11/08/20 21:39 11/08/20 21:39 11/08/20 21:39 11/08/20 21:39 Oxygen Flow Rate (L/min) 5 Oxygen Delivery Method Nasal Cannula Weight: 90.265 kg Body Mass Index (BMI) 30.2 Intake and Output for Last 24 Hours 11/06/20 11/07/20 11/08/20 23:59 23:59 23:59 Intake Total 50 / 50 Balance 50 / 50 General: Alert, Oriented x3, Cooperative HEENT: Atraumatic, PERRLA, EOMI, Normocephalic Neck: Supple, No JVD, Negative Carotid Bruits Lungs: Rhonchi, Wheezes Cardiovascular: Normal S1, Normal S2, No murmurs, Irregular Rate Abdomen: Bowel Sounds Present, Soft, Non Tender Extremities: No edema, Capillary Refill Less than 3 Seconds Skin: No rashes, No breakdown Musculoskeletal: No Tenderness to Palpation of Joints or Extremities Neurological: Cranial nerves II-XII grossly intact Psych/Mental Status: Normal Affect, Appropriate Microbiology Past 72 Hours 11/08/20 20:11 Mucosa - Nose SARS-CoV-2 Antigen (Rapid) - Final Laboratory Results 11/08/20 19:30: WBC 17.0 H, RBC 4.04 L, Hgb 12.5 L, Hct 37.4 L, MCV 92.6, MCH 30.9, MCHC 33.4, RDW Std Deviation 46.2 H, RDW Coeff of Swapnil 13.4, Plt Count 217, MPV 9.6, Immature Gran % (Auto) 1.200 H, Neut % (Auto) 82.1 H, Lymph % (Auto) 5.5 L, Rhea % (Auto) 9.6, Eos % (Auto) 1.1, Baso % (Auto) 0.5, Absolute Neuts (auto) 14.0 H, Absolute Lymphs (auto) 0.93, Nucleated RBC % 0, Differential Comment SEE COMMENT, Diff Path Review December foll, Platelet Estimate ADEQUATE, RBC Morphology N CHROM, Anisocytosis RARE, Macrocytosis RARE 11/08/20 19:30: PT 33.2 H, INR 3.3 11/08/20 19:30: Sodium 140, Potassium 3.6, Chloride 108 H, Carbon Dioxide 25.0, Anion Gap 7, BUN 19 H, Creatinine 1.04, Estim Creat Clear Calc 52.98, Est GFR (MDRD) Af Amer 88, Est GFR (MDRD) Non-Af 73, BUN/Creatinine Ratio 18.3, Glucose 144 H, Calcium 8.4 L, Total Bilirubin 2.50 H, AST 25, ALT 30, Alkaline Phosphatase 88, Troponin I 0.017, Total Protein 7.0, Albumin 3.7, Globulin 3.3, Albumin/Globulin Ratio 1.1 11/08/20 19:30: B-Natriuretic Peptide 252.2 H 11/08/20 20:10: Lactic Acid 1.2 Current Medications Acetaminophen (Acetaminophen 325 Mg Tablet) 650 mg PO Q6H PRN PRN PRN Reason: Pain Score 1-10/Temp > 100.7 F Amlodipine Besylate (Amlodipine 10 Mg Tablet) 10 mg PO DAILY [facility] Cholecalciferol (Cholecalciferol (Vit D3) 1,000 Unit (25mcg)) 5,000 unit PO DAILY [facility] Escitalopram Oxalate (Escitalopram Oxalate 10 Mg Tablet) 10 mg PO DAILY [facility] Furosemide (Furosemide 100 Mg/10 Ml Vial) 80 mg IV BID@1000,1800 MONIQUE Guaifenesin (Guaifenesin 1,200 Mg Tablet) 1,200 mg PO BID [facility] Ceftriaxone Sodium (Rocephin) 1 gm in 50 mls @ 100 mls/hr IV Q24@2200 MONIQUE Doxycycline Hyclate 100 mg/ (Dextrose) 260 mls @ 250 mls/hr IV Q12 [facility] Losartan Potassium (Losartan Potassium 100 Mg Tablet) 100 mg PO DAILY [facility] Non-Formulary Medication (Magnesium Oxide) 400 mg PO BREAKFAST [facility] Potassium Chloride (Potassium Chloride Oral Tablet 20 Meq) 40 meq PO DAILYCM [facility] Pravastatin Sodium (Pravastatin 80 Mg Tablet) 80 mg PO DAILY [facility] Prochlorperazine Edisylate (Prochlorperazine 10 Mg/2 Ml Vial) 5 mg IV Q4H PRN PRN PRN Reason: Breakthrough Nausea/Vomiting Warfarin Sodium (Warfarin 1 Mg Tablet) 1 mg PO DAILY [facility] Warfarin Sodium (Warfarin 4 Mg Tablet) 4 mg PO DAILY [facility] Assessment/Plan All Active Problems (Last Reviewed 11/08/20 @ 22:[address] Karl Lagos MD) Respiratory insufficiency (Acute) Community acquired pneumonia (Acute) Heart failure (Acute) H/O coronary artery bypass surgery (Resolved 04/30/01) Hematoma of left lower extremity (Resolved) Hematoma of lower limb (Resolved) Nonhealing ulcer of left lower leg (Resolved) Pneumonia (Resolved) Ulcer of right lower extremity with fat layer exposed (Resolved) The patient is a 84 year old M with a significant history of heart failure with preserved ejection fraction; status post mechanical aortic valve replacement; CAD status post CABG; obstructive sleep apnea; secondary pulmonary hypertension who presented to the emergency department with a 3-day history of progressively worsening shortness of breath; chills and fever; anorexia and fatigue; productive cough and hypoxia. Acute hypoxemic respiratory insufficiency Oxygen saturation of 60% on room air and required supplemental oxygenation at emergency department. Likely secondary to community-acquired pneumonia; acute viral illness; acute exacerbation of CHF or other. Treatment as below. Continue supplemental oxygen started at emergency department. Community-acquired pneumonia Lactic acid: 1.2 Reports home fever of about 100 Fahrenheit with chills. T-max at the hospital 99.3 Fahrenheit. Blood culture ?2 ordered at emergency department; follow. Impression of chest x-ray by radiology: Mild interstitial prominence bilaterally. Right perihilar mild infiltrate. Current chest x-ray and previous chest x-ray was independently reviewed. Increase diffuse interstitial infiltrate noted. Respiratory Gram stain and culture pending Antibiotics; started on ceftriaxone and doxycycline at the emergency department. Azithromycin was avoided because of prolonged QTc interval. Ceftriaxone and doxycycline continued. DuoNeb scheduled. Albuterol as needed Legionella antigen screen and Strep antigen ordered Respiratory pathogen panel ordered. Acute on chronic heart failure with preserved ejection fraction. MT on 10/31/2019: Ejection fraction 60%. Mild to moderate global right ventricular systolic dysfunction. Left atrium severely enlarged. Right atrium moderately enlarged. Moderate eccentric mitral valve insufficiency. Mild to moderate tricuspid valve insufficiency. Mild aortic valve insufficiency. Stable appearing mechanical aortic valve apparatus. Surface echo on 10/04/2019 was remarkable for stage III diastolic dysfunction. Ejection fraction was estimated at 65%. No regional wall abnormalities were noted. Patient reports weight gain of about 9pounds in the past 10 days. BNP is only mildly elevated at 252.2. Chest x-ray with interstitial infiltrates On home Lasix 80 mg p.o. Received Lasix 40 mg IV at emergency department. Lasix 40 mg IV twice daily ordered. Fluid restriction 1500 mL/day. Cardiac diet. Strict intake and output. Daily weights ordered Adjust diuretics as necessary. Obesity: BMI: 30.3. Complicates care. Lifestyle modification recommended. Obstructive sleep apnea CPAP continued with oxygen bled in. Persistent atrial fibrillation/status post aortic valve replacement INR is therapeutic at 3.3. Coumadin continued Trend INR. Prolonged QTc interval.: QTC of 479. Avoid QTC prolongation drugs. DVT prophylaxis Not indicated since patient is therapeutic on Coumadin. Inpatient E&M: 59692 In Hosp L3
[2020-11-08] MEDS: guaiFENesin 1,200 MG Tablet 1200 MG PO (23:55)
[2020-11-08] MEDS: Pravastatin 80 MG Tablet PO (23:56)
[2020-11-09] VITALS (31 sets, daily range): BP systolic 102–171; BP diastolic 48–92; PULSE 67–105; RESP 12–32; TEMP 36.6–37.9; O2SAT 40–97
--- NOTE | 2020-11-09 04:27 | NURSING ---
PT WOKEN FOR VS/ASSESSMENT. SPO2 WAS 84% ON 6LNC. APPLIED HI-DAVID TUBING AND PT WAS ABLE TO MAINTAIN >88% ON 6L WHILE AWAKE. ONCE PT FELL ASLEEP, SPO2 DROPPED TO MID 80S. PT UNWILLING TO HAVE BIPAP APPLIED. 40%VM @ 12L APPLIED. CONT SPO2 MONITORING STARTED. NOTIFIED.
[2020-11-09] MEDS: LORazepam 2 MG/ML Syringe 1 MG IV (04:38)
[2020-11-09] MEDS: 0.9% Saline Lock 10 ML Syringe IV ×4 (04:38→21:46)
--- NOTE | 2020-11-09 04:40 | NURSING ---
PT REMOVED VM AND WAS FOUND W/SPO2 67%. VM REAPPLIED, SPO2 NOW 94%.
[2020-11-09 04:59] LABS: Absolute Lymphocyte Count 1.77 X10^3/uL (0.83-4.51); Absolute Neutrophil Count 15.1 X10^3/uL (2.0-7.7); Basophil# 0.12 X10^3/uL; Basophil% 0.6 % (0-1); Eosinophil# 0.26 X10^3/uL; Eosinophils% 1.3 % (0-5); Hematocrit 37.7 % (40-54); Hemoglobin 12.3 g/dL (13.0-16.5); Lymphocyte # 1.77 X10^3/ul (4.0); Lymphocyte % 9.1 % (19-41); Mean Corp Hgb Conc 32.6 g/dL (32-36); Mean Corpuscular Hgb 30.4 pg (27.0-32.0); Mean Corpuscular Volume 93.3 fL (80-94); Mean Platelet Vol. 9.5 fl (6.2-12.0); Monocyte# 1.92 X10^3/uL; Monocyte% 9.9 % (0-10); NRBC Flagged by Analyzer 0 % (0-5); Neutrophil # 15.12 X10^3/uL (2.7-7.7); Neutrophil % 78.1 % (47-70); POSITIVE DIFFERENTIAL YES; Platelet Count 225 K/mm3 (150-450); RBC Distribution Width CV 13.4 % (11.6-14.6); RBC Distribution Width SD 45.9 fl (35.1-43.9); Red Blood Count 4.04 M/mm3 (4.6-6.2); White Blood Count 19.4 K/mm3 (4.4-11.0)
[2020-11-09 05:10] LABS: International Normalized Ratio 3.5; Prothrombin Time (Protime)PT. 34.7 SECONDS (11.7-14.9)
[2020-11-09 05:16] LABS: Anion Gap 9 (5-15); BUN 18 mg/dL (7-18); BUN/Creat Ratio 17.8 RATIO (10-20); Calcium,Total 8.5 mg/dL (8.5-10.1); Chloride 105 mmol/L (98-107); Creatinine, Serum 1.01 mg/dL (0.70-1.30); EST Glomerular Filtration Rate 75 mL/min (>60); Est Glom Filt Rate - Afr Amer 91 mL/min (>60); Estimated Creatinine Clearance 54.55 ml/min; Glucose 133 mg/dL (74-106); Potassium 3.7 mmol/L (3.5-5.1); Sodium Level 140 mmol/L (136-145)
[2020-11-09 05:24] LABS: Differential Indicated SCAN CRITERIA MET
[2020-11-09 05:28] LABS: Differential Comment SCANNED
[2020-11-09 05:30] LABS: Atypical Lymphocyte RARE %
[2020-11-09] MEDS: Ipratropium/Albuterol Sulfate 3 ML AMPUL.NEB INHALATION ×5 (06:57→22:11)
[2020-11-09] MEDS: Furosemide 40 MG/4 ML Vial IV ×2 (09:06→17:34)
[2020-11-09] MEDS: Magnesium Chloride 64 MG Delay Rel.Tablet 128 MG PO (09:06)
[2020-11-09] MEDS: Losartan Potassium 100 MG Tablet PO (09:06)
[2020-11-09] MEDS: guaiFENesin 1,200 MG Tablet 1200 MG PO ×2 (09:06→21:56)
[2020-11-09] MEDS: amLODIPine 10 MG Tablet PO (09:06)
[2020-11-09] MEDS: Potassium Chloride Oral Tablet 20 MEQ 40 MEQ PO (09:06)
[2020-11-09] MEDS: Escitalopram Oxalate 10 MG Tablet PO (09:06)
[2020-11-09 11:20] LABS: Pathologist Review Reviewed
[2020-11-09 11:23] LABS: Pathologist Review Reviewed
--- NOTE | 2020-11-09 11:35 | CASEMGMT ---
SHELLY RIGGS assessment: Face to Face with patient for initial transition planning/care coordination assessment. SHELLY RIGGS introduced self and role at [facility], pt voices understanding and consents to assessment. Pt is sitting up in bed with tachypnea and on 8-9L nc at this time. Pt's current pulse ox is 88-89% and Shamika BRAVO updated, voices understanding. Pt's is at bedside and assists with answering questions as pt does not have hearing aids in at this time. Pt is A/Ox4 and answers questions appropriately but is [place]. Care providers, pharmacy, and demographics verified. Presentation: Pt c/o SOB that has been increasing over the past several days. pt reports hx of CHF and 9lb weight gain from yesterday Admitting dx: Acute hypoxic resp insufficiency PCP: [place] Specialists: [facility] cardio; susan Hood Preferred [facility]acy: [facility] Insurance: [facility] Prescription Benefit: [facility] Living Will/HPOA: Pt states has a LW/HPOA and is aware that it's not on file at [facility]. states she will bring copies in when able. Pt states , Lacy Ruth, is HPOA. LNOK: Lacy Ruth, /HPOA; Harshil Ruth, son Living Arrangements: Pt lives with on main level of 2 story home and states no concerns at home. Pt states is independent with ADL's. Transportation: Pt states drives self and states no transporation concerns. DME/HHC: Pt has the following DME: grab bars and cpap thru [employer] and would like oxygen set up thru [employer], green sheet left on chart. Pt states no hx of HHC or SNF. Pt states no concerns with going home at time of discharge. Pt states is retired. Pt states does not smoke cigarettes but does drink a glass of wine nightly. Pt states no further concerns/needs. CM to follow for home oxygen need and any further discharge planning/needs. Advised pt to ask for CM if any further questions/concerns/needs arise, voices understanding. Pt Goal: Home Plan[place] SHELLY RIGGS
--- NOTE | 2020-11-09 15:41 | PCM.PN.HOSP ---
Patient Problems: Active and Suspected Problems (Last Reviewed 11/08/20 @ 22:[address] Karl Lagos MD) Respiratory insufficiency (Acute) Community acquired pneumonia (Acute) Heart failure (Acute) Subjective: Feeling better, states that he had gained about 14 or 15 pounds and then developed 3-day history of worsening shortness of breath and fevers. He says it is doing better today, however he does become significantly hypoxic whenever he is active. Vitals/I&O's: Vital Signs Temp Pulse Resp BP Pulse Ox 98.2 F 70 26 H 116/62 94 11/09/20 14:00 11/09/20 15:00 11/09/20 14:00 11/09/20 14:00 11/09/20 14:00 Oxygen Flow Rate (L/min) 10 Oxygen Delivery Method Nasal Cannula Weight: 194 lb 11.043 oz Body Mass Index (BMI) 29.6 Intake and Output for Last 24 Hours 11/07/20 11/08/20 11/09/20 23:59 23:59 23:59 Intake Total 310 / 550 980 / 980 Output Total 1100 / 1100 Balance 310 / 300 -120 / -120 General: Alert, Oriented x3, Cooperative, No apparent distress HEENT: Atraumatic, PERRLA, EOMI, Normocephalic Oral: Moist Mucosa Neck: Supple, No JVD Lungs: Normal air movement, No rhonchi, No wheeze, Diminished, Rales Cardiovascular: Regular rate, Regular Rhythm, Normal S1, Normal S2, No murmurs Abdomen: Soft, Non Tender, Non-Distended, No Hepato-splenomegaly Extremities: No edema, Capillary Refill Less than 3 Seconds Skin: - - Chronic venous stasis dermatitis Neurological: Neuro grossly intact, Sensory exam intact to light touch and pain Psych/Mental Status: Normal Affect, Appropriate Microbiology Past 72 Hours 11/08/20 00:13 Urine, Clean Catch Legionella Antigen - Final 11/08/20 00:13 Urine, Clean Catch Streptococcus pneumoniae Antigen (M - Final 11/08/20 22:57 Mucosa - Nasopharyngeal Respiratory Panel (PCR) - Final 11/08/20 20:11 Mucosa - Nose SARS-CoV-2 Antigen (Rapid) - Final Laboratory Results 11/08/20 19:30: WBC 17.0 H, RBC 4.04 L, Hgb 12.5 L, Hct 37.4 L, MCV 92.6, MCH 30.9, MCHC 33.4, RDW Std Deviation 46.2 H, RDW Coeff of Swapnil 13.4, Plt Count 217, MPV 9.6, Immature Gran % (Auto) 1.200 H, Neut % (Auto) 82.1 H, Lymph % (Auto) 5.5 L, [place] % (Auto) 9.6, Eos % (Auto) 1.1, Baso % (Auto) 0.5, Absolute Neuts (auto) 14.0 H, Absolute Lymphs (auto) 0.93, Nucleated RBC % 0, Differential Comment SEE COMMENT, Diff Path Review Reviewed, Platelet Estimate ADEQUATE, RBC Morphology N CHROM, Anisocytosis RARE, Macrocytosis RARE 11/08/20 19:30: PT 33.2 H, INR 3.3 11/08/20 19:30: Sodium 140, Potassium 3.6, Chloride 108 H, Carbon Dioxide 25.0, Anion Gap 7, BUN 19 H, Creatinine 1.04, Estim Creat Clear Calc 52.98, Est GFR (MDRD) Af Amer 88, Est GFR (MDRD) Non-Af 73, BUN/Creatinine Ratio 18.3, Glucose 144 H, Calcium 8.4 L, Total Bilirubin 2.50 H, AST 25, ALT 30, Alkaline Phosphatase 88, Troponin I 0.017, Total Protein 7.0, Albumin 3.7, Globulin 3.3, Albumin/Globulin Ratio 1.1 11/08/20 19:30: B-Natriuretic Peptide 252.2 H 11/08/20 20:10: Lactic Acid 1.2 11/09/20 04:40: WBC 19.4 H, RBC 4.04 L, Hgb 12.3 L, Hct 37.7 L, MCV 93.3, MCH 30.4, MCHC 32.6, RDW Std Deviation 45.9 H, RDW Coeff of Swapnil 13.4, Plt Count 225, MPV 9.5, Immature Gran % (Auto) 1.000 H, Neut % (Auto) 78.1 H, Lymph % (Auto) 9.1 L, [place] % (Auto) 9.9, Eos % (Auto) 1.3, Baso % (Auto) 0.6, Absolute Neuts (auto) 15.1 H, Absolute Lymphs (auto) 1.77, Nucleated RBC % 0, Differential Comment SCANNED, Diff Path Review Reviewed, Atypical Lymphocytes RARE 11/09/20 04:40: Sodium 140, Potassium 3.7, Chloride 105, Carbon Dioxide 26.0, Anion Gap 9, BUN 18, Creatinine 1.01, Estim Creat Clear Calc 54.55, Est GFR (MDRD) Af Amer 91, Est GFR (MDRD) Non-Af 75, BUN/Creatinine Ratio 17.8, Glucose 133 H, Calcium 8.5 11/09/20 04:40: PT 34.7 H, INR 3.5 Current Medications Acetaminophen (Acetaminophen 325 Mg Tablet) 650 mg PO Q6H PRN PRN PRN Reason: Pain Score 1-10/Temp > 100.7 F Albuterol Sulfate (Albuterol 2.5 Mg/3 Ml Vial.Neb.) 2.5 mg INHALATION Q2H PRN PRN PRN Reason: sob/wheezing Albuterol/Ipratropium (Ipratropium/Albuterol Sulfate 3 Ml Ampul.Neb) 3 ml INHALATION Q4HWA.RT [facility] Last Admin: 11/09/20 15:12 Dose: 3 ml Documented by: Amlodipine Besylate (Amlodipine 10 Mg Tablet) 10 mg PO DAILY [facility] Last Admin: 11/09/20 09:06 Dose: 10 mg Documented by: Cholecalciferol (Cholecalciferol (Vit D3) 1,000 Unit (25mcg)) 5,000 unit PO DAILY [facility] Last Admin: 11/09/20 09:06 Dose: 5,000 unit Documented by: Escitalopram Oxalate (Escitalopram Oxalate 10 Mg Tablet) 10 mg PO DAILY [facility] Last Admin: 11/09/20 09:06 Dose: 10 mg Documented by: Furosemide (Furosemide 40 Mg/4 Ml Vial) 40 mg IV BID@1000,1800 [facility] Last Admin: 11/09/20 09:06 Dose: 40 mg Documented by: Guaifenesin (Guaifenesin 1,200 Mg Tablet) 1,200 mg PO BID [facility] Last Admin: 11/09/20 09:06 Dose: 1,200 mg Documented by: Ceftriaxone Sodium (Rocephin) 1 gm in 50 mls @ 100 mls/hr IV Q24@2200 [facility] Doxycycline Hyclate 100 mg/ (Dextrose) 260 mls @ 250 mls/hr IV Q12 [facility] Last Infusion: 03/19/21 10:35 Dose: Infused Documented by: Sodium Chloride () 250 mls @ 15 mls/hr IV .[id number] PRN PRN Reason: Saline Flush Losartan Potassium (Losartan Potassium 100 Mg Tablet) 100 mg PO DAILY [facility] Last Admin: 11/09/20 09:06 Dose: 100 mg Documented by: Magnesium Chloride (Magnesium Chloride 64 Mg Delay Rel.Tablet) 128 mg PO BREAKFAST [facility] Last Admin: 11/09/20 09:06 Dose: 128 mg Documented by: Potassium Chloride (Potassium Chloride Oral Tablet 20 Meq) 40 meq PO DAILYCM [facility] Last Admin: 11/09/20 09:06 Dose: 40 meq Documented by: Pravastatin Sodium (Pravastatin 80 Mg Tablet) 80 mg PO DAILY@2200 [facility] Last Admin: 11/08/20 23:56 Dose: 80 mg Documented by: Prochlorperazine Edisylate (Prochlorperazine 10 Mg/2 Ml Vial) 5 mg IV Q4H PRN PRN PRN Reason: Breakthrough Nausea/Vomiting Sodium Chloride (0.9% Saline Lock 10 Ml Syringe) 10 - 40 ml IV UD PRN PRN Reason: SALINE FLUSH Last Admin: 11/09/20 09:17 Dose: 10 ml Documented by: Warfarin Sodium (Warfarin 4 Mg Tablet) 4 mg PO DAILY@1700 [facility] Last Admin: 11/09/20 13:19 Dose: Not Given Documented by: STROKE Vital Signs/Narrative: Vital Signs Temp Pulse Resp BP Pulse Ox 11/09/20 15:00 70 11/09/20 14:00 98.2 F 71 26 H 116/62 94 11/09/20 13:00 98.9 F 81 27 H 110/61 93 Medical Necessity - Tobacco Use Smoking Status: Former smoker Assessment/Plan All Active Problems (Last Reviewed 11/08/20 @ 22:[address] Karl Lagos MD) Respiratory insufficiency (Acute) Community acquired pneumonia (Acute) Heart failure (Acute) H/O coronary artery bypass surgery (Resolved 04/30/01) Hematoma of left lower extremity (Resolved) Hematoma of lower limb (Resolved) Nonhealing ulcer of left lower leg (Resolved) Pneumonia (Resolved) Ulcer of right lower extremity with fat layer exposed (Resolved) 1. Acute hypoxic respiratory failure secondary to gram-positive community-acquired pneumonia and acute on chronic diastolic CHF -We will continue with aggressive diuresis -Continue with antibiotics and await culture results -He has completed both doses of his Covid vaccine and his Covid test was negative -Continue with I's and O's and fluid restriction -Echo in [place] of 2019 with an EF of 65% and stage III diastolic dysfunction -Continue with oxygen and wean as able 2. HTN/HLD/chronic A. fib status post radiofrequency ablation/status post aortic valve replacement/CAD status post CABG -INR is supratherapeutic at over 3 -Blood pressure is stable -Continue with losartan and Norvasc -Continue with pravastatin 3. ELIJAH -Stable -Continue with CPAP whenever he sleeps DVT: Supratherapeutic INR will hold his warfarin dose [facility] Inpatient E&M: [id number] [facility] Hosp L2
[2020-11-09] MEDS: Acetaminophen 325 MG Tablet 650 MG PO (19:46)
[2020-11-09] MEDS: Ceftriaxone 1 GM/50 ML BAG IV (21:52)
[2020-11-09] MEDS: Pravastatin 80 MG Tablet PO (21:56)
[2020-11-10] VITALS (22 sets, daily range): BP systolic 111–135; BP diastolic 51–71; PULSE 62–85; RESP 12–28; TEMP 36.2–37; O2SAT 90–95
[2020-11-10 07:21] LABS: Absolute Lymphocyte Count 1.76 X10^3/uL (0.83-4.51); Absolute Neutrophil Count 10.6 X10^3/uL (2.0-7.7); Basophil# 0.11 X10^3/uL; Basophil% 0.8 % (0-1); Eosinophil# 0.51 X10^3/uL; Eosinophils% 3.5 % (0-5); Hematocrit 36.8 % (40-54); Hemoglobin 11.8 g/dL (13.0-16.5); Lymphocyte # 1.76 X10^3/ul (4.0); Lymphocyte % 12.2 % (19-41); Mean Corp Hgb Conc 32.1 g/dL (32-36); Mean Corpuscular Hgb 30.4 pg (27.0-32.0); Mean Corpuscular Volume 94.8 fL (80-94); Mean Platelet Vol. 9.6 fl (6.2-12.0); Monocyte# 1.37 X10^3/uL; Monocyte% 9.5 % (0-10); NRBC Flagged by Analyzer 0 % (0-5); Neutrophil # 10.56 X10^3/uL (2.7-7.7); Neutrophil % 73.2 % (47-70); Platelet Count 226 K/mm3 (150-450); RBC Distribution Width CV 13.7 % (11.6-14.6); RBC Distribution Width SD 47.7 fl (35.1-43.9); Red Blood Count 3.88 M/mm3 (4.6-6.2); White Blood Count 14.4 K/mm3 (4.4-11.0)
[2020-11-10] MEDS: Ipratropium/Albuterol Sulfate 3 ML AMPUL.NEB INHALATION ×4 (07:23→18:34)
[2020-11-10 07:54] LABS: Anion Gap 6 (5-15); BUN 23 mg/dL (7-18); BUN/Creat Ratio 23.7 RATIO (10-20); Calcium,Total 8.5 mg/dL (8.5-10.1); Chloride 105 mmol/L (98-107); Creatinine, Serum 0.97 mg/dL (0.70-1.30); EST Glomerular Filtration Rate 79 mL/min (>60); Est Glom Filt Rate - Afr Amer 95 mL/min (>60); Glucose 120 mg/dL (74-106); Potassium 3.3 mmol/L (3.5-5.1); Sodium Level 139 mmol/L (136-145)
--- NOTE | 2020-11-10 08:22 | CPS ---
Pt decreased to 11 lpm. Saturation on 11 lpm 96%. Pt's nurse aware of change.
[2020-11-10 08:25] LABS: International Normalized Ratio 4.2; Prothrombin Time (Protime)PT. 40.2 SECONDS (11.7-14.9)
[2020-11-10] MEDS: Magnesium Chloride 64 MG Delay Rel.Tablet 128 MG PO (09:02)
[2020-11-10] MEDS: Losartan Potassium 100 MG Tablet PO (09:03)
[2020-11-10] MEDS: Furosemide 40 MG/4 ML Vial IV ×2 (09:03→17:26)
[2020-11-10] MEDS: Escitalopram Oxalate 10 MG Tablet PO (09:03)
[2020-11-10] MEDS: amLODIPine 10 MG Tablet PO (09:03)
[2020-11-10] MEDS: Potassium Chloride Oral Tablet 20 MEQ 60 MEQ PO (09:04)
[2020-11-10] MEDS: guaiFENesin 1,200 MG Tablet 1200 MG PO ×2 (09:04→20:45)
[2020-11-10] MEDS: Phytonadione (Vit K1) 5 MG TABLET 2.5 MG PO (10:17)
--- NOTE | 2020-11-10 11:43 | PCM.PN.HOSP ---
Patient Problems: Active and Suspected Problems (Last Reviewed 11/08/20 @ 22:[address] Karl Lagos MD) Respiratory insufficiency (Acute) Community acquired pneumonia (Acute) Heart failure (Acute) Subjective: Patient seen and examined. He had no complaints today. He still remains short of breath. He did say he has been coughing up blood though it looked like it was old dried blood. He is on 10 L of oxygen. He denies any chest pain or palpitation, dizziness, nausea vomiting or diarrhea. Review of systems otherwise negative. He states he is usually not on oxygen at home. Remains tachypneic. Potassium is 3.3. BBC is 14.4 hemoglobin is 11.8 with platelets of 226. BNP was 252 on admission. Vitals/I&O's: Vital Signs Temp Pulse Resp BP Pulse Ox 97.2 F L 82 28 H 128/62 H 92 11/10/20 11:00 11/10/20 11:34 11/10/20 11:00 11/10/20 11:00 11/10/20 11:00 Oxygen Flow Rate (L/min) 10 Oxygen Delivery Method Nasal Cannula Weight: 192 lb 14.472 oz Body Mass Index (BMI) 29.6 Intake and Output for Last 24 Hours 11/08/20 11/09/20 11/10/20 23:59 23:59 23:59 Intake Total 310 / 550 1765 / 2015 610 / 610 Output Total 1400 / 1750 350 / 350 Balance 310 / 300 365 / 265 260 / 260 General: Alert, Oriented x3, Cooperative HEENT: Atraumatic, PERRLA, EOMI, Normocephalic Oral: Dry Mucosa Neck: Supple, No JVD, Negative Carotid Bruits Lungs: Tachypneic, - - diminished breath sounds bibasally, few crackles. On 10L of oxygen by nasal canula Cardiovascular: Regular rate, Regular Rhythm, Normal S1, Normal S2, No murmurs Abdomen: Bowel Sounds Present, Soft, Non Tender, Non-Distended, No Hepato-splenomegaly Extremities: No clubbing, No cyanosis, No edema, Capillary Refill Less than 3 Seconds Skin: No rashes, No breakdown Musculoskeletal: No Tenderness to Palpation of Joints or Extremities Lymphatic: No Cervical, Supraclavicular, or Inguinal Adenopathy Neurological: Cranial nerves II-XII grossly intact, Neuro grossly intact, Motor Exam 5/5 strength throughout Psych/Mental Status: Normal Affect, Appropriate, Alert and oriented to time, place, person, mood and affect Microbiology Past 72 Hours 11/08/20 00:13 Urine, Clean Catch Legionella Antigen - Final 11/08/20 00:13 Urine, Clean Catch Streptococcus pneumoniae Antigen (M - Final 11/08/20 22:57 Mucosa - Nasopharyngeal Respiratory Panel (PCR) - Final 11/08/20 20:11 Mucosa - Nose SARS-CoV-2 Antigen (Rapid) - Final Laboratory Results 11/10/20 06:20: PT 40.2 H, INR 4.2 H* 11/10/20 06:20: WBC 14.4 H, RBC 3.88 L, Hgb 11.8 L, Hct 36.8 L, MCV 94.8 H, MCH 30.4, MCHC 32.1, RDW Std Deviation 47.7 H, RDW Coeff of Swapnil 13.7, Plt Count 226, MPV 9.6, Immature Gran % (Auto) 0.800, Neut % (Auto) 73.2 H, Lymph % (Auto) 12.2 L, [place] % (Auto) 9.5, Eos % (Auto) 3.5, Baso % (Auto) 0.8, Absolute Neuts (auto) 10.6 H, Absolute Lymphs (auto) 1.76, Nucleated RBC % 0 11/10/20 06:20: Sodium 139, Potassium 3.3 L, Chloride 105, Carbon Dioxide 28.0, Anion Gap 6, BUN 23 H, Creatinine 0.97, Estim Creat Clear Calc 56.80, Est GFR (MDRD) Af Amer 95, Est GFR (MDRD) Non-Af 79, BUN/Creatinine Ratio 23.7 H, Glucose 120 H, Calcium 8.5 Diagnostic Data Chest X-Ray 11/08/20 19:55 IMPRESSION: Mild interstitial prominence bilaterally. Right perihilar mild infiltrate. Electronically Signed: Jason Alcantara DO at 19:53 EDT Tel [phone], Service support , Current Medications Acetaminophen (Acetaminophen 325 Mg Tablet) 650 mg PO Q6H PRN PRN PRN Reason: Pain Score 1-10/Temp > 100.7 F Last Admin: 11/09/20 19:46 Dose: 650 mg Documented by: Albuterol Sulfate (Albuterol 2.5 Mg/3 Ml Vial.Neb.) 2.5 mg INHALATION Q2H PRN PRN PRN Reason: sob/wheezing Albuterol/Ipratropium (Ipratropium/Albuterol Sulfate 3 Ml Ampul.Neb) 3 ml INHALATION Q4HWA.RT [facility] Last Admin: 11/10/20 11:17 Dose: 3 ml Documented by: Amlodipine Besylate (Amlodipine 10 Mg Tablet) 10 mg PO DAILY [facility] Last Admin: 11/10/20 09:03 Dose: 10 mg Documented by: Cholecalciferol (Cholecalciferol (Vit D3) 1,000 Unit (25mcg)) 5,000 unit PO DAILY [facility] Last Admin: 11/10/20 09:03 Dose: 5,000 unit Documented by: Escitalopram Oxalate (Escitalopram Oxalate 10 Mg Tablet) 10 mg PO DAILY [facility] Last Admin: 11/10/20 09:03 Dose: 10 mg Documented by: Furosemide (Furosemide 40 Mg/4 Ml Vial) 40 mg IV BID@1000,1800 [facility] Last Admin: 11/10/20 09:03 Dose: 40 mg Documented by: Guaifenesin (Guaifenesin 1,200 Mg Tablet) 1,200 mg PO BID [facility] Last Admin: 11/10/20 09:04 Dose: 1,200 mg Documented by: Ceftriaxone Sodium (Rocephin) 1 gm in 50 mls @ 100 mls/hr IV Q24@2200 [facility] Last Infusion: 11/09/20 22:30 Dose: Infused Documented by: Doxycycline Hyclate 100 mg/ (Dextrose) 260 mls @ 250 mls/hr IV Q12 [facility] Last Admin: 11/10/20 10:31 Dose: 250 mls/hr Documented by: Sodium Chloride () 250 mls @ 15 mls/hr IV .[id number] PRN PRN Reason: Saline Flush Losartan Potassium (Losartan Potassium 100 Mg Tablet) 100 mg PO DAILY [facility] Last Admin: 11/10/20 09:03 Dose: 100 mg Documented by: Magnesium Chloride (Magnesium Chloride 64 Mg Delay Rel.Tablet) 128 mg PO BREAKFAST [facility] Last Admin: 11/10/20 09:02 Dose: 128 mg Documented by: Potassium Chloride (Potassium Chloride Oral Tablet 20 Meq) 40 meq PO DAILYCM [facility] Pravastatin Sodium (Pravastatin 80 Mg Tablet) 80 mg PO DAILY@2200 [facility] Last Admin: 11/09/20 21:56 Dose: 80 mg Documented by: Prochlorperazine Edisylate (Prochlorperazine 10 Mg/2 Ml Vial) 5 mg IV Q4H PRN PRN PRN Reason: Breakthrough Nausea/Vomiting Sodium Chloride (0.9% Saline Lock 10 Ml Syringe) 10 - 40 ml IV UD PRN PRN Reason: SALINE FLUSH Last Admin: 11/09/20 21:46 Dose: 10 ml Documented by: Warfarin Sodium (Warfarin 4 Mg Tablet) 4 mg PO DAILY@1700 [facility] Last Admin: 11/10/20 09:06 Dose: Not Given Documented by: STROKE Vital Signs/Narrative: Vital Signs Temp Pulse Resp BP Pulse Ox 11/10/20 11:34 82 11/10/20 11:00 97.2 F L 78 28 H 128/62 H 92 11/10/20 10:00 98.0 F 84 27 H 120/62 93 11/10/20 09:00 97.8 F 85 20 H 130/66 H 92 11/10/20 08:00 98.1 F 84 22 H 135/63 H 91 Medical Necessity - Tobacco Use Smoking Status: Former smoker Assessment/Plan All Active Problems (Last Reviewed 11/08/20 @ 22:[address] Karl Lagos MD) Respiratory insufficiency (Acute) Community acquired pneumonia (Acute) Heart failure (Acute) H/O coronary artery bypass surgery (Resolved 04/30/01) Hematoma of left lower extremity (Resolved) Hematoma of lower limb (Resolved) Nonhealing ulcer of left lower leg (Resolved) Pneumonia (Resolved) Ulcer of right lower extremity with fat layer exposed (Resolved) #Acute hypoxic respiratory failure due to community acquired pneumonia a nd acute on chronic HFpEF Being diuresed with IV Lasix. On 10 L of oxygen and still tachypneic. Pulmonology consulted. In cumulative positive balance by 1.19 L. WBC is down to 14.4 today. Breathing treatments of bronchodilators. On ceftriaxone and doxycycline. Cultures pending. Respiratory panel negative. Covid test negative. titrate oxygen to maintain saturation above 90%. #Hemoptysis: States he coughed up some blood with clots. INR was elevated at 4.2 today. It was 3.5 yesterday. Coumadin on hold. Will give oral vitamin K 2.5mg in light of hemoptysis. #Hypertension: Losartan and amlodipine. #Hyperlipidemia: on statin #Chronbic afib s./o ablation Done on hold on account of elevated INR. #Aortic valve replacement: stable. #CAD s/p CABG: sable. On statin and losartan. #ELIJAH; on CPAP qhs DVT prophylaxis: coumadin on hold o/.a of supratherapeutic INR Inpatient E&M: [id number] Subs Hosp L3
--- NOTE | 2020-11-10 11:49 | CPS ---
pt decreased to 9 lpm. Saturation 95%. Nurse aware
[2020-11-10] MEDS: Pravastatin 80 MG Tablet PO (20:45)
[2020-11-10] MEDS: Ceftriaxone 1 GM/50 ML BAG IV (23:10)
[2020-11-11] VITALS (15 sets, daily range): BP systolic 113–139; BP diastolic 50–94; PULSE 67–89; RESP 12–27; TEMP 36.3–37.1; O2SAT 92–97
[2020-11-11 06:23] LABS: Absolute Lymphocyte Count 1.09 X10^3/uL (0.83-4.51); Absolute Neutrophil Count 10.8 X10^3/uL (2.0-7.7); Basophil% 0.7 % (0-1); Eosinophil# 0.53 X10^3/uL; Eosinophils% 3.8 % (0-5); Hematocrit 34.6 % (40-54); Hemoglobin 11.5 g/dL (13.0-16.5); Lymphocyte # 1.09 X10^3/ul (4.0); Lymphocyte % 7.8 % (19-41); Mean Corp Hgb Conc 33.2 g/dL (32-36); Mean Corpuscular Hgb 30.7 pg (27.0-32.0); Mean Corpuscular Volume 92.3 fL (80-94); Mean Platelet Vol. 9.8 fl (6.2-12.0); Monocyte# 1.45 X10^3/uL; Monocyte% 10.3 % (0-10); NRBC Flagged by Analyzer 0 % (0-5); Neutrophil # 10.79 X10^3/uL (2.7-7.7); Neutrophil % 76.8 % (47-70); Platelet Count 244 K/mm3 (150-450); RBC Distribution Width CV 13.6 % (11.6-14.6); Red Blood Count 3.75 M/mm3 (4.6-6.2); White Blood Count 14.1 K/mm3 (4.4-11.0)
[2020-11-11 06:49] LABS: International Normalized Ratio 2.1; Prothrombin Time (Protime)PT. 23.1 SECONDS (11.7-14.9)
[2020-11-11 06:52] LABS: Anion Gap 7 (5-15); BUN 22 mg/dL (7-18); BUN/Creat Ratio 26.3 RATIO (10-20); Calcium,Total 8.7 mg/dL (8.5-10.1); Chloride 106 mmol/L (98-107); Creatinine, Serum 0.84 mg/dL (0.70-1.30); EST Glomerular Filtration Rate 93 mL/min (>60); Est Glom Filt Rate - Afr Amer 113 mL/min (>60); Glucose 123 mg/dL (74-106); Potassium 3.4 mmol/L (3.5-5.1); Sodium Level 141 mmol/L (136-145)
[2020-11-11] MEDS: Ipratropium/Albuterol Sulfate 3 ML AMPUL.NEB INHALATION ×4 (07:32→18:55)
[2020-11-11] MEDS: Furosemide 40 MG/4 ML Vial IV ×3 (08:21→21:17)
[2020-11-11] MEDS: 0.9% Saline Lock 10 ML Syringe IV ×3 (08:21→21:19)
[2020-11-11] MEDS: Potassium Chloride Oral Tablet 20 MEQ 40 MEQ PO (08:21)
[2020-11-11] MEDS: guaiFENesin 1,200 MG Tablet 1200 MG PO ×2 (08:22→21:17)
[2020-11-11] MEDS: Losartan Potassium 100 MG Tablet PO (08:22)
[2020-11-11] MEDS: Magnesium Chloride 64 MG Delay Rel.Tablet 128 MG PO (08:22)
[2020-11-11] MEDS: amLODIPine 10 MG Tablet PO (08:22)
[2020-11-11] MEDS: Escitalopram Oxalate 10 MG Tablet PO (08:22)
--- NOTE | 2020-11-11 08:27 | CPS ---
pt decreased to 7 lpm. Saturation 93%
--- NOTE | 2020-11-11 10:04 | PCM.CONS.PUL ---
Problem List (1) Respiratory insufficiency Status: Acute (2) Heart failure Status: Acute Qualifiers: Heart failure type: diastolic (3) Atherosclerosis of coronary artery of [place] heart with angina pectoris Status: Chronic Comment: CABG x 2 SVG-D1 and SVG-OM w/ AVR using a [address] [employer] Mechanical Prosthesis 04/30/2001 (4) H/O coronary artery bypass surgery Status: Resolved Comment: CABG x 2 SVG-D1 and SVG-OM w/ AVR using a [address] [employer] Mechanical Prosthesis 04/30/2001 (5) Nonrheumatic aortic (valve) stenosis with insufficiency Status: Chronic (6) H/O aortic valve replacement Status: Chronic Comment: AVR using a [address] [employer] Mechanical Prosthesis (7) Longstanding persistent atrial fibrillation Status: Chronic (8) Secondary pulmonary arterial hypertension Status: Chronic (9) Chronic diastolic heart failure Status: Chronic (10) Essential (primary) hypertension Status: Chronic (11) Hyperlipidemia Status: Chronic Qualifiers: Hyperlipidemia type: pure hypercholesterolemia Qualified Code(s): E78.00 - Pure hypercholesterolemia, unspecified; E78.0 - Pure hypercholesterolemia (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 Patient had reported a 20 pound weight gain over the last 2 weeks with the associated scant cough and exertional dyspnea. Patient does not use oxygen chronically per his report. Patient does not carry a formal diagnosis of COPD, and does not use any inhalers. On presentation to the ER, patient was noted to be 88% on 2 L in desaturated to the mid 60s on room air with relatively mild distress per ER staff. Patient got significant 24 breaths/min and hypertensive at 144/102. Chest x-ray was suggestive of right perihilar infiltrate. Leukocytosis of 17 was noted, along with an INR of 3.3. Chemistry was relatively unremarkable except for an elevated glucose of 144, total bilirubin of 2.5 and slightly elevated bicarbonate of 25. Liver function studies were within normal limits and lactate was 1.2. BNP was elevated at 252. EKG showed only A. fib with no significant ST changes. There was concern for community-acquired pneumonia, so patient was placed on antibiotics and admitted to the floor for further evaluation. Over the course of patient's hospitalization, he has required BiPAP and 9 to 10 L nasal cannula oxygen to maintain saturations. Given failure to improve, a pulmonary consult was ordered yesterday. Patient overall feels improved compared to previous. Patient does report significant concerns with the amount of oxygen he is requiring. Patient does report smoking for 40+ pack years, but is never been seen by a fly winder or use inhalers. 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 Patient does report a 20 pound weight gain over the last 2 weeks, but is not endorsing significant lower extremity edema. Patient does believe that his belly is natarajan and he is getting more short of breath with trying to tie his shoes. Patient reports he has been compliant with his Lasix therapy. Patient is not reporting any chest pain, but does have a cough productive of frothy pink sputum. Review of systems otherwise negative from a constitutional, HEENT, respiratory, cardiovascular, GI, genitourinary, musculoskeletal, skin, neurologic, psychiatric and hematologic system unless stated above. Past Medical History Past Medical History (Chronic Problems): Chronic Problems (Last Reviewed 11/08/20 @ 22:[address] Karl Lagos MD) Atherosclerosis of coronary artery of [place] heart with angina pectoris (Chronic) CABG x 2 SVG-D1 and SVG-OM w/ AVR using a [address] [employer] Mechanical Prosthesis 04/30/2001 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) H/O aortic valve replacement (Chronic 04/30/01) AVR using a [address] [employer] Mechanical Prosthesis Longstanding persistent atrial fibrillation (Chronic) Secondary pulmonary arterial hypertension (Chronic) Left ventricular diastolic dysfunction (Chronic) Chronic diastolic heart failure (Chronic) Essential (primary) hypertension (Chronic) Hyperlipidemia (Chronic) 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 (Chronic) Z79.01 Daytime somnolence R40.0 Gasping for breath R06.89 Non-rheumatic tricuspid valve insufficiency I36.1 Nonrheumatic mitral (valve) insufficiency I34.0 Obstructive sleep apnea G47.33 Snoring R06.83 Acute blood loss anemia Onset Date: 02/10/19 D62 Acute gastritis with hemorrhage Onset Date: 02/10/19 K29.01 Pneumonia (Resolved) J18.9 Hypokalemia (Inactive) E87.6 Localized edema (Inactive) R60.0 Allergies No Known Allergies Allergy (Verified 11/08/20 18:40) Home Medications: Ambulatory Orders Medication Instructions Recorded magnesium oxide 400 mg (241.3 mg 400 mg PO BREAKFAST tab 10/01/17 magnesium) tablet Cholecalciferol (Vitamin D3) 125 mcg PO DAILY 10/03/19 [Vitamin D3] pravastatin 80 mg tablet 80 mg PO DAILY #90 tab 02/06/20 warfarin 4 mg tablet 4 mg PO DAILY #90 tab 02/27/20 furosemide 40 mg tablet 80 mg PO BID #360 tab 06/05/20 escitalopram oxalate 10 mg tablet 10 mg PO DAILY tab 11/01/20 losartan 100 mg tablet 100 mg PO DAILY #90 tab 11/01/20 potassium chloride 20 mEq 20 meq PO DAILY tab 11/01/20 tablet,extended release Amlodipine Besylate [Norvasc] 10 mg PO DAILY 11/08/20 Surgical History: Surgical History (Last Reviewed 11/08/20 @ 22:[address] Karl Lagos MD) H/O coronary artery bypass surgery (Resolved) Onset Date: 04/30/01 Z95.1 CABG x 2 SVG-D1 and SVG-OM w/ AVR using a [address] [employer] Mechanical Prosthesis 04/30/2001 H/O aortic valve replacement (Chronic) Onset Date: 04/30/01 Z95.2 AVR using a [address] [employer] Mechanical Prosthesis History of colonoscopy Onset Date: 02/10/19 Z98.890 History of esophagogastroduodenoscopy Onset Date: 02/10/19 Z98.890 History of radiofrequency ablation procedure for cardiac arrhythmia Onset Date: 12/26/14 Z98.890 RFA for afib w/ PVI By Dr Lee History of transesophageal echocardiography (MT) Onset Date: 10/31/19 Z92.89 Left ventricular systolic function is normal. The estimated ejection fraction is 60 %. Bileaflet diffuse mitral valve thickening. Moderate (2+) eccentric mitral valve insufficiency. Stable appearing mechanical aortic valve apparatus. Mild (1+) aortic valve insufficiency. Surgical History: - - Tonsillectomy, CABG x2, AVR with mechanical valve, cholecystectomy, cardiac ablation, dental surgery. Psychiatric History: Anxiety, Depression Smoking Status: Former smoker - *Family History Maternal Family History: Family History (Last Reviewed 11/08/20 @ 22:[address] Karl Lagos MD) Father No problems noted. Mother Diabetes History Items: Cancer, Diabetes Paternal Family History: Family History (Last Reviewed 11/08/20 @ 22:[address] Karl Lagos MD) Father No problems noted. Mother Diabetes History Items: - - Patient notes a paternal family history of heart disease. Review of Systems Comment: See HPI Patient Problems: Active and Suspected Problems (Last Reviewed 11/08/20 @ 22:[address] Karl Lagos MD) Respiratory insufficiency (Acute) Community acquired pneumonia (Acute) Heart failure (Acute) Objective: All imaging was personally reviewed. Agree with interpretation of chest x-ray, but this appears to be more consistent with pulmonary edema in my opinion. No pulmonary function tests are available for review, but patient did recently have a transesophageal echo showing an EF of 60% with mild to moderate global right ventricular systolic dysfunction, atrial enlargement and mitral valve insufficiency. Transthoracic echocardiogram completed in September showed stage III diastolic dysfunction, but more importantly a pulmonary artery pressure estimated at 80 mmHg with a mean aortic valve gradient of 30 mmHg - Physical Exam Vitals/I&O's: Vital Signs Temp Pulse Resp BP Pulse Ox 36.7 C 68 20 H 132/53 H 96 11/11/20 06:00 11/11/20 07:32 11/11/20 07:32 11/11/20 06:00 11/11/20 07:32 Oxygen Flow Rate (L/min) 7 Oxygen Delivery Method Nasal Cannula Weight: 85.6 kg Body Mass Index (BMI) 29.6 Intake and Output for Last 24 Hours 11/09/20 11/10/20 11/11/20 23:59 23:59 23:59 Intake Total 1764 1180 / 1300 120 / 120 Output Total 1400 / 1750 350 / 550 300 / 300 Balance 365 / 265 830 / 750 -180 / -180 General: Alert, Oriented x3, Cooperative, No apparent distress, - - Obese. Comfortable on 10 L nasal cannula HEENT: Atraumatic, PERRLA, EOMI, Normocephalic, - - No scleral icterus or injection noted Oral: Moist Mucosa, No Gingival or Mucosal Lesions/ Ulcerations Neck: Supple, No Nodes, Trachea Midline, JVD, Right Lungs: No rhonchi, No wheeze, Diminished, Rales - Right base Cardiovascular: Normal S1, Normal S2, Irregular Rate, Murmur - Grade 2 out of 6 systolic ejection murmur at the right sternal border, No rub noted, No Gallop Abdomen: Bowel Sounds Present, Soft, Non Tender, Non-Distended, Obese Extremities: No clubbing, No cyanosis, Edema - Trace lower extremity Skin: - - Vascular insufficiency changes of bilateral lower extremities Musculoskeletal: No Tenderness to Palpation of Joints or Extremities Lymphatic: No Cervical, Supraclavicular, or Inguinal Adenopathy Neurological: Cranial nerves II-XII grossly intact, Neuro grossly intact, Motor Exam 5/5 strength throughout Psych/Mental Status: Alert and oriented to time, place, person, mood and affect Microbiology Past 72 Hours 11/08/20 20:15 Blood Culture (Wb) - Right Hand Blood Culture - Preliminary No growth in 48 hours. 11/08/20 20:10 Blood Culture (Wb) - Anticubital Left Blood Culture - Preliminary No growth in 48 hours. 11/08/20 00:13 Urine, Clean Catch Legionella Antigen - Final 11/08/20 00:13 Urine, Clean Catch Streptococcus pneumoniae Antigen (M - Final 11/08/20 22:57 Mucosa - Nasopharyngeal Respiratory Panel (PCR) - Final 11/08/20 20:11 Mucosa - Nose SARS-CoV-2 Antigen (Rapid) - Final Laboratory Results 11/11/20 05:20: PT 23.1 H, INR 2.1 11/11/20 05:20: WBC 14.1 H, RBC 3.75 L, Hgb 11.5 L, Hct 34.6 L, MCV 92.3, MCH 30.7, MCHC 33.2, RDW Std Deviation 46.0 H, RDW Coeff of Swapnil 13.6, Plt Count 244, MPV 9.8, Immature Gran % (Auto) 0.600, Neut % (Auto) 76.8 H, Lymph % (Auto) 7.8 L, [place] % (Auto) 10.3 H, Eos % (Auto) 3.8, Baso % (Auto) 0.7, Absolute Neuts (auto) 10.8 H, Absolute Lymphs (auto) 1.09, Nucleated RBC % 0 11/11/20 05:20: Sodium 141, Potassium 3.4 L, Chloride 106, Carbon Dioxide 28.0, Anion Gap 7, BUN 22 H, Creatinine 0.84, Estim Creat Clear Calc 65.60, Est GFR (MDRD) Af Amer 113, Est GFR (MDRD) Non-Af 93, BUN/Creatinine Ratio 26.3 H, Glucose 123 H, Calcium 8.7 Clinical Impression(s) from Imaging Studies Chest X-Ray 11/08/20 19:55 IMPRESSION: Mild interstitial prominence bilaterally. Right perihilar mild infiltrate. Electronically Signed: Jason Alcantara DO at 19:53 EDT Tel [phone], Service support , Current Medications Acetaminophen (Acetaminophen 325 Mg Tablet) 650 mg PO Q6H PRN PRN PRN Reason: Pain Score 1-10/Temp > 100.7 F Last Admin: 11/09/20 19:46 Dose: 650 mg Documented by: Albuterol Sulfate (Albuterol 2.5 Mg/3 Ml Vial.Neb.) 2.5 mg INHALATION Q2H PRN PRN PRN Reason: sob/wheezing Albuterol/Ipratropium (Ipratropium/Albuterol Sulfate 3 Ml Ampul.Neb) 3 ml INHALATION Q4HWA.RT MONIQUE Last Admin: 11/11/20 07:32 Dose: 3 ml Documented by: Amlodipine Besylate (Amlodipine 10 Mg Tablet) 10 mg PO DAILY [facility] Last Admin: 11/11/20 08:22 Dose: 10 mg Documented by: Cholecalciferol (Cholecalciferol (Vit D3) 1,000 Unit (25mcg)) 5,000 unit PO DAILY [facility] Last Admin: 11/11/20 08:22 Dose: 5,000 unit Documented by: Escitalopram Oxalate (Escitalopram Oxalate 10 Mg Tablet) 10 mg PO DAILY [facility] Last Admin: 11/11/20 08:22 Dose: 10 mg Documented by: Furosemide (Furosemide 40 Mg/4 Ml Vial) 40 mg IV Q8 [facility] Guaifenesin (Guaifenesin 1,200 Mg Tablet) 1,200 mg PO BID [facility] Last Admin: 11/11/20 08:22 Dose: 1,200 mg Documented by: Ceftriaxone Sodium (Rocephin) 1 gm in 50 mls @ 100 mls/hr IV Q24@2200 [facility] Last Infusion: 11/10/20 23:40 Dose: Infused Documented by: Doxycycline Hyclate 100 mg/ (Dextrose) 260 mls @ 250 mls/hr IV Q12 [facility] Last Admin: 11/11/20 09:46 Dose: 250 mls/hr Documented by: Sodium Chloride () 250 mls @ 15 mls/hr IV .[id number] PRN PRN Reason: Saline Flush Losartan Potassium (Losartan Potassium 100 Mg Tablet) 100 mg PO DAILY [facility] Last Admin: 11/11/20 08:22 Dose: 100 mg Documented by: Magnesium Chloride (Magnesium Chloride 64 Mg Delay Rel.Tablet) 128 mg PO BREAKFAST [facility] Last Admin: 11/11/20 08:22 Dose: 128 mg Documented by: Potassium Chloride (Potassium Chloride Oral Tablet 20 Meq) 40 meq PO DAILYCM [facility] Last Admin: 11/11/20 08:21 Dose: 40 meq Documented by: Pravastatin Sodium (Pravastatin 80 Mg Tablet) 80 mg PO DAILY@2200 [facility] Last Admin: 11/10/20 20:45 Dose: 80 mg Documented by: Prochlorperazine Edisylate (Prochlorperazine 10 Mg/2 Ml Vial) 5 mg IV Q4H PRN PRN PRN Reason: Breakthrough Nausea/Vomiting Sodium Chloride (0.9% Saline Lock 10 Ml Syringe) 10 - 40 ml IV UD PRN PRN Reason: SALINE FLUSH Last Admin: 11/11/20 08:21 Dose: 10 ml Documented by: Warfarin Sodium (Warfarin 4 Mg Tablet) 4 mg PO DAILY@1700 [facility] Last Admin: 11/10/20 09:06 Dose: Not Given Documented by: Assessment/Plan All Active Problems (Last Reviewed 11/08/20 @ 22:[address] Karl Lagos MD) Respiratory insufficiency (Acute) Community acquired pneumonia (Acute) Heart failure (Acute) H/O coronary artery bypass surgery (Resolved 04/30/01) Hematoma of left lower extremity (Resolved) Hematoma of lower limb (Resolved) Nonhealing ulcer of left lower leg (Resolved) Pneumonia (Resolved) Ulcer of right lower extremity with fat layer exposed (Resolved) RECOMMENDATIONS: 1. Increase diuresis 2. Continue empiric BiPAP with sleep 3. Wean oxygen as tolerated. Walking oximetry prior to discharge 4. Outpatient evaluation for COPD 5. Electrolyte repletion as indicated 6. Continue systemic anticoagulation 7. Okay to complete a 5-day course of antibiotics for possible pneumonia IMPRESSIONS: 1. Acute hypoxic respiratory failure Clinical suspicion for a significant amount of diastolic congestive heart failure/cor pulmonale leading to acute presentation. Patient had significant weight gain preceding presentation. Cannot exclude an element of underlying COPD. Empiric treatment for community-acquired pneumonia is also appropriate given patient's leukocytosis. Will increase diuretics. Will need to follow electrolytes closely. Patient is reporting frothy sputum, which may be secondary to pulmonary edema in the setting of elevated INR. Could obtain a CT scan of the chest as an outpatient to evaluate for mediastinal masses given a significant smoking history. 2. Chronic A. fib/aortic valve replacement/acute on chronic diastolic CHF/CAD status post CABG Patient is on appropriate medical therapy at this time. 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 Cardiac optimization would be recommended. Patient would likely benefit from an outpatient right heart catheterization for quantification clarification of lung pressures for more adequate characterization. 3. Hyperlipidemia/hypertension/advanced age/ELIJAH Applicator care, management, recovery and prognosis. Okay to continue with baseline medications and ELIJAH therapy from my perspective. Inpatient E&M: 84594 Init Hosp L3
--- NOTE | 2020-11-11 10:53 | PCM.PN.HOSP ---
Patient Problems: Active and Suspected Problems (Last Reviewed 11/08/20 @ 22:[address] Karl Lagos MD) Respiratory insufficiency (Acute) Community acquired pneumonia (Acute) Heart failure (Acute) Subjective: Patient seen and examined. He feels better today, and has no complaints. Breathing is getting better. He is down to 7L of oxygen by nasal canula. He was noted to have a 12 beat run of vtach this morning. Potassium is 3.4. REveiw of systems otherwise negative. Vitals/I&O's: Vital Signs Temp Pulse Resp BP Pulse Ox 98.1 F 68 20 H 132/53 H 96 11/11/20 06:00 11/11/20 07:32 11/11/20 07:32 11/11/20 06:00 11/11/20 07:32 Oxygen Flow Rate (L/min) 7 Oxygen Delivery Method Nasal Cannula Weight: 188 lb 11.451 oz Body Mass Index (BMI) 29.6 Intake and Output for Last 24 Hours 11/09/20 11/10/20 11/11/20 23:59 23:59 23:59 Intake Total 1765 / 2015 1180 / 1300 120 / 120 Output Total 1400 / 1750 350 / 550 300 / 300 Balance 365 / 265 830 / 750 -180 / -180 General: Alert, Oriented x3, Cooperative HEENT: Atraumatic, PERRLA, EOMI, Normocephalic; hard of hearing Oral: Dry Mucosa Neck: Supple, No JVD, Negative Carotid Bruits Lungs: Tachypneic, - - diminished breath sounds bibasally, few crackles. On 7L of oxygen by nasal canula Cardiovascular: Regular rate, Regular Rhythm, Normal S1, Normal S2, No murmurs Abdomen: Bowel Sounds Present, Soft, Non Tender, Non-Distended, No Hepato-splenomegaly Extremities: No clubbing, No cyanosis, No edema, Capillary Refill Less than 3 Seconds Skin: No rashes, No breakdown Musculoskeletal: No Tenderness to Palpation of Joints or Extremities Lymphatic: No Cervical, Supraclavicular, or Inguinal Adenopathy Neurological: Cranial nerves II-XII grossly intact, Neuro grossly intact, Motor Exam 5/5 strength throughout Psych/Mental Status: Normal Affect, Appropriate, Alert and oriented to time, place, person, mood and affect Microbiology Past 72 Hours 11/08/20 20:15 Blood Culture (Wb) - Right Hand Blood Culture - Preliminary No growth in 48 hours. 11/08/20 20:10 Blood Culture (Wb) - Anticubital Left Blood Culture - Preliminary No growth in 48 hours. 11/08/20 00:13 Urine, Clean Catch Legionella Antigen - Final 11/08/20 00:13 Urine, Clean Catch Streptococcus pneumoniae Antigen (M - Final 11/08/20 22:57 Mucosa - Nasopharyngeal Respiratory Panel (PCR) - Final 11/08/20 20:11 Mucosa - Nose SARS-CoV-2 Antigen (Rapid) - Final Laboratory Results 11/11/20 05:20: PT 23.1 H, INR 2.1 11/11/20 05:20: WBC 14.1 H, RBC 3.75 L, Hgb 11.5 L, Hct 34.6 L, MCV 92.3, MCH 30.7, MCHC 33.2, RDW Std Deviation 46.0 H, RDW Coeff of Swapnil 13.6, Plt Count 244, MPV 9.8, Immature Gran % (Auto) 0.600, Neut % (Auto) 76.8 H, Lymph % (Auto) 7.8 L, [place] % (Auto) 10.3 H, Eos % (Auto) 3.8, Baso % (Auto) 0.7, Absolute Neuts (auto) 10.8 H, Absolute Lymphs (auto) 1.09, Nucleated RBC % 0 11/11/20 05:20: Sodium 141, Potassium 3.4 L, Chloride 106, Carbon Dioxide 28.0, Anion Gap 7, BUN 22 H, Creatinine 0.84, Estim Creat Clear Calc 65.60, Est GFR (MDRD) Af Amer 113, Est GFR (MDRD) Non-Af 93, BUN/Creatinine Ratio 26.3 H, Glucose 123 H, Calcium 8.7 Current Medications Acetaminophen (Acetaminophen 325 Mg Tablet) 650 mg PO Q6H PRN PRN PRN Reason: Pain Score 1-10/Temp > 100.7 F Last Admin: 11/09/20 19:46 Dose: 650 mg Documented by: Albuterol Sulfate (Albuterol 2.5 Mg/3 Ml Vial.Neb.) 2.5 mg INHALATION Q2H PRN PRN PRN Reason: sob/wheezing Albuterol/Ipratropium (Ipratropium/Albuterol Sulfate 3 Ml Ampul.Neb) 3 ml INHALATION Q4HWA.RT COUNTS INCLUDE 234 BEDS AT THE [facility] Last Admin: 11/11/20 07:32 Dose: 3 ml Documented by: Amlodipine Besylate (Amlodipine 10 Mg Tablet) 10 mg PO DAILY COUNTS INCLUDE 234 BEDS AT THE [facility] Last Admin: 11/11/20 08:22 Dose: 10 mg Documented by: Cholecalciferol (Cholecalciferol (Vit D3) 1,000 Unit (25mcg)) 5,000 unit PO DAILY COUNTS INCLUDE 234 BEDS AT THE [facility] Last Admin: 11/11/20 08:22 Dose: 5,000 unit Documented by: Escitalopram Oxalate (Escitalopram Oxalate 10 Mg Tablet) 10 mg PO DAILY COUNTS INCLUDE 234 BEDS AT THE [facility] Last Admin: 11/11/20 08:22 Dose: 10 mg Documented by: Furosemide (Furosemide 40 Mg/4 Ml Vial) 40 mg IV Q8 COUNTS INCLUDE 234 BEDS AT THE [facility] Guaifenesin (Guaifenesin 1,200 Mg Tablet) 1,200 mg PO BID [facility]S INCLUDE 234 BEDS AT [facility] Last Admin: 11/11/20 08:22 Dose: 1,200 mg Documented by: Ceftriaxone Sodium (Rocephin) 1 gm in 50 mls @ 100 mls/hr IV Q24@2200 COUNTS INCLUDE 234 BEDS AT THE [facility] Last Infusion: 11/10/20 23:40 Dose: Infused Documented by: Doxycycline Hyclate 100 mg/ (Dextrose) 260 mls @ 250 mls/hr IV Q12 [facility]S INCLUDE 234 BEDS AT [facility] Last Admin: 11/11/20 09:46 Dose: 250 mls/hr Documented by: Sodium Chloride () 250 mls @ 15 mls/hr IV .[id number] PRN PRN Reason: Saline Flush Losartan Potassium (Losartan Potassium 100 Mg Tablet) 100 mg PO DAILY [facility]S INCLUDE 234 BEDS AT [facility] Last Admin: 11/11/20 08:22 Dose: 100 mg Documented by: Magnesium Chloride (Magnesium Chloride 64 Mg Delay Rel.Tablet) 128 mg PO BREAKFAST COUNTS INCLUDE 234 BEDS AT THE [facility] Last Admin: 11/11/20 08:22 Dose: 128 mg Documented by: Potassium Chloride (Potassium Chloride Oral Tablet 20 Meq) 40 meq PO DAILYCM COUNTS INCLUDE 234 BEDS AT THE [facility] Last Admin: 11/11/20 08:21 Dose: 40 meq Documented by: Pravastatin Sodium (Pravastatin 80 Mg Tablet) 80 mg PO DAILY@2200 COUNTS INCLUDE 234 BEDS AT THE [facility] Last Admin: 11/10/20 20:45 Dose: 80 mg Documented by: Prochlorperazine Edisylate (Prochlorperazine 10 Mg/2 Ml Vial) 5 mg IV Q4H PRN PRN PRN Reason: Breakthrough Nausea/Vomiting Sodium Chloride (0.9% Saline Lock 10 Ml Syringe) 10 - 40 ml IV UD PRN PRN Reason: SALINE FLUSH Last Admin: 11/11/20 08:21 Dose: 10 ml Documented by: Warfarin Sodium (Warfarin 4 Mg Tablet) 4 mg PO DAILY@1700 [facility] Last Admin: 11/10/20 09:06 Dose: Not Given Documented by: STROKE Vital Signs/Narrative: Vital Signs Pulse Resp Pulse Ox 11/11/20 07:32 68 20 H 96 11/11/20 07:00 76 Medical Necessity - Tobacco Use Smoking Status: Former smoker Assessment/Plan All Active Problems (Last Reviewed 11/08/20 @ 22:[address] Karl Lagos MD) Respiratory insufficiency (Acute) Community acquired pneumonia (Acute) Heart failure (Acute) H/O coronary artery bypass surgery (Resolved 04/30/01) Hematoma of left lower extremity (Resolved) Hematoma of lower limb (Resolved) Nonhealing ulcer of left lower leg (Resolved) Pneumonia (Resolved) Ulcer of right lower extremity with fat layer exposed (Resolved) #Acute hypoxic respiratory failure due to community acquired pneumonia a nd acute on chronic HFpEF Being diuresed with IV Lasix. lasix increased to 40mg q8hrly pulmonology on board. in cumulative positive balance by 1.325L, though his weight has gone down by 11 pounds since admission continue breathing treatments with bronchodilators continue IV ceftriaxone and doyxcycline titrate oxygen to maintain sats >90% #Hemoptysis: resolved INR today is 2.1 will resume coumadin #Hypertension: Losartan and amlodipine. #Hyperlipidemia: on statin #Chronbic afib s./o ablation Done on hold on account of elevated INR. #Aortic valve replacement: stable. #CAD s/p CABG: sable. On statin and losartan. #ELIJAH; on CPAP qhs DVT prophylaxis: INR 2.1 today. Will resume coumadin Inpatient E&M: 91619 Subs Hosp L2
[2020-11-11 11:28] LABS: Magnesium 1.9 mg/dL (1.6-2.6)
[2020-11-11] MEDS: Pravastatin 80 MG Tablet PO (21:17)
[2020-11-11] MEDS: Ceftriaxone 1 GM/50 ML BAG IV (22:25)
[2020-11-12] VITALS (15 sets, daily range): BP systolic 113–145; BP diastolic 55–71; PULSE 69–87; RESP 17–23; TEMP 36.3–37.1; O2SAT 92–97
[2020-11-12] MEDS: Furosemide 40 MG/4 ML Vial IV ×3 (05:07→21:19)
[2020-11-12] MEDS: 0.9% Saline Lock 10 ML Syringe IV ×3 (05:08→21:14)
[2020-11-12 06:46] LABS: Absolute Lymphocyte Count 1.47 X10^3/uL (0.83-4.51); Absolute Neutrophil Count 10.7 X10^3/uL (2.0-7.7); Basophil% 0.7 % (0-1); Eosinophil# 0.66 X10^3/uL; Eosinophils% 4.5 % (0-5); Hematocrit 37.3 % (40-54); Hemoglobin 12.4 g/dL (13.0-16.5); Lymphocyte # 1.47 X10^3/ul (4.0); Lymphocyte % 10.1 % (19-41); Mean Corp Hgb Conc 33.2 g/dL (32-36); Mean Corpuscular Hgb 30.9 pg (27.0-32.0); Mean Platelet Vol. 9.3 fl (6.2-12.0); Monocyte# 1.48 X10^3/uL; Monocyte% 10.2 % (0-10); NRBC Flagged by Analyzer 0 % (0-5); Neutrophil # 10.68 X10^3/uL (2.7-7.7); Neutrophil % 73.7 % (47-70); Platelet Count 313 K/mm3 (150-450); RBC Distribution Width CV 13.2 % (11.6-14.6); RBC Distribution Width SD 45.2 fl (35.1-43.9); Red Blood Count 4.01 M/mm3 (4.6-6.2); White Blood Count 14.5 K/mm3 (4.4-11.0)
[2020-11-12 06:56] LABS: International Normalized Ratio 1.7; Prothrombin Time (Protime)PT. 19.3 SECONDS (11.7-14.9)
[2020-11-12] MEDS: Ipratropium/Albuterol Sulfate 3 ML AMPUL.NEB INHALATION ×3 (07:00→19:04)
[2020-11-12 07:10] LABS: Anion Gap 5 (5-15); BUN 22 mg/dL (7-18); BUN/Creat Ratio 23.4 RATIO (10-20); Calcium,Total 8.9 mg/dL (8.5-10.1); Chloride 102 mmol/L (98-107); Creatinine, Serum 0.94 mg/dL (0.70-1.30); EST Glomerular Filtration Rate 81 mL/min (>60); Est Glom Filt Rate - Afr Amer 98 mL/min (>60); Estimated Creatinine Clearance 58.62 ml/min; Glucose 138 mg/dL (74-106); Potassium 3.3 mmol/L (3.5-5.1); Sodium Level 136 mmol/L (136-145)
[2020-11-12] MEDS: Potassium Chloride Oral Tablet 20 MEQ 40 MEQ PO (08:16)
[2020-11-12] MEDS: Potassium Chloride Oral Tablet 20 MEQ 60 MEQ PO (08:16)
[2020-11-12] MEDS: Losartan Potassium 100 MG Tablet PO (08:17)
[2020-11-12] MEDS: guaiFENesin 1,200 MG Tablet 1200 MG PO ×2 (08:17→21:19)
[2020-11-12] MEDS: amLODIPine 10 MG Tablet PO (08:17)
[2020-11-12] MEDS: Magnesium Chloride 64 MG Delay Rel.Tablet 128 MG PO (08:17)
[2020-11-12] MEDS: Escitalopram Oxalate 10 MG Tablet PO (08:17)
--- NOTE | 2020-11-12 09:02 | ECHOCS_ITS ---
Reason For Study: Heart Failure Procedure This was a 2D Doppler, Color Flow transthoracic echocardiogram. The study was technically difficult. Contrast injection was performed. Exam performed portable in patient room. Left Ventricle Normal LV size. Moderate concentric left ventricular hypertrophy. Left ventricular systolic function is normal. The estimated ejection fraction is 55 %. Stage 3 diastolic dysfunction. No regional wall motion abnormalities noted. Right Ventricle Normal RV size. Normal systolic function. Atria The left atrium is severely enlarged. The right atrium is severely enlarged. Mitral Valve Normal mitral valve. Mild (1+) eccentric mitral valve insufficiency. Tricuspid Valve Normal tricuspid valve. Moderate (2+) tricuspid valve insufficiency. Pulmonary artery systolic pressure is 44 mmHg. Mild pulmonary hypertension. Aortic Valve Peak aortic valve gradient 38 mmHg. Mean aortic valve gradient 17 mmHg. Stable appearing mechanical aortic valve apparatus. Pulmonic Valve Normal pulmonic valve. Great Vessels Normal aortic root. The pulmonary artery is normal size. Normal inferior vena cava. Pericardium/Pleural No pericardial effusion. Medication Diluted definity 4ml given slow IV push to enhance endocardial definition. MMode/2D Measurements & Calculations LVIDd: 3.9 cm IVSd: 1.4 cm Ao root diam: 3.3 cm LVIDs: 2.9 cm LVPWd: 1.5 cm RVDd: 3.8 cm FS: 25.5 % LAV(MOD-bp): 124.2 ml LA A4 area: 30.6 cm2 RA A4 area: 30.6 cm2 LAV(MOD-bp) Indexed: 63.0 ml/m2 LAV(MOD-sp2): 130.5 ml LAV(MOD-sp4): 103.0 ml Time Measurements MV dec time: 0.31 sec Doppler Measurements & Calculations MV E max nishi: 144.8 cm/sec MV V2 max: 170.1 cm/sec MV P1/2t max nishi: 172.3 cm/sec MV A max nishi: 41.6 cm/sec MV max P.6 mmHg MV P1/2t: 94.1 msec MV E/A: 3.5 MV V2 mean: 87.6 cm/sec MV dec slope: 536.0 cm/sec2 MV mean P.8 mmHg MV V2 VTI: 38.9 cm MVA(P1/2t): 2.3 cm2 Ao V2 max: 307.5 cm/sec LV V1 max: 126.2 cm/sec PA V2 max: 115.6 cm/sec Ao max P.9 mmHg LV V1 max P.4 mmHg Ao V2 mean: 186.6 cm/sec LV V1 mean P.7 mmHg Ao mean P.7 mmHg LV V1 mean: 90.1 cm/sec Ao V2 VTI: 47.9 cm LV V1 VTI: 28.4 cm TR max nishi: 318.1 cm/sec TR max P.5 mmHg Interpretation Summary Normal LV size. Moderate concentric left ventricular hypertrophy. Left ventricular systolic function is normal. The estimated ejection fraction is 55 %. Stage 3 diastolic dysfunction. The left atrium is severely enlarged. The right atrium is severely enlarged. Pulmonary artery systolic pressure is 44 mmHg. Ordering Physician: Concha Doyle Referring Physician: Michael Cortez MD Performed By: Anton So RCS
--- NOTE | 2020-11-12 09:58 | PCM.PN.PUL ---
Patient Problems: Active and Suspected Problems (Last Reviewed 11/08/20 @ 22:[address] Karl Lagos MD) Respiratory insufficiency (Acute) Community acquired pneumonia (Acute) Heart failure (Acute) Subjective: The patient was seen and examined at the bedside this morning. Events from the last 24 hours have been reviewed. The patient is currently afebrile, hemodynamically stable and maintaining appropriate oxygen saturations on 6 L/min via nasal cannula. Potassium is low this morning at 3.3. The patient does report interval improvement in his overall breathing quality. Objective: The patient's most recent lab work, culture data and imaging studies have all been personally reviewed. Surface echocardiogram from September 2019 revealed moderate concentric LVH with an ejection fraction of 65% and stage III diastolic dysfunction. Pulmonary artery systolic pressure was estimated to be 80 mmHg. Severe tricuspid valve insufficiency was noted. Respiratory viral panel was negative. Rapid coronavirus antigen testing was negative. Strep and urine Legionella antigens were negative. Blood and sputum cultures have demonstrated no growth to date. - Physical Exam Vitals/I&O's: Vital Signs Temp Pulse Resp BP Pulse Ox 98.7 F 79 23 H 131/63 H 96 11/12/20 05:00 11/12/20 07:00 11/12/20 07:00 11/12/20 05:00 11/12/20 07:00 Oxygen Flow Rate (L/min) 6 Oxygen Delivery Method Nasal Cannula Weight: 184 lb 15.485 oz Body Mass Index (BMI) 29.6 Intake and Output for Last 24 Hours 11/10/20 11/11/20 11/12/20 23:59 23:59 23:59 Intake Total 1180 / 1300 1650 / 1650 60 / 60 Output Total 350 / 550 2300 / 2300 1150 / 1150 Balance 830 / 750 -650 / -650 -1090 / -1090 General: Alert, Cooperative, No apparent distress HEENT: Atraumatic, Normocephalic Oral: Moist Mucosa, No Gingival or Mucosal Lesions/ Ulcerations Neck: Supple, No Nodes, Trachea Midline Lungs: No rhonchi, No wheeze, Diminished, Rales Cardiovascular: Normal S1, Normal S2, Irregular Rate, Murmur Abdomen: Bowel Sounds Present, Soft, Non Tender Extremities: No clubbing, No cyanosis, No edema Skin: No breakdown Musculoskeletal: No Tenderness to Palpation of Joints or Extremities Lymphatic: No Cervical, Supraclavicular, or Inguinal Adenopathy Neurological: Cranial nerves II-XII grossly intact, Neuro grossly intact Psych/Mental Status: Normal Affect, Appropriate Labs (Last 48 Hours) 11/11/20 11/11/20 11/11/20 05:20 05:20 05:20 WBC 14.1 H RBC 3.75 L Hgb 11.5 L Hct 34.6 L MCV 92.3 MCH 30.7 MCHC 33.2 RDW Std Deviation 46.0 H RDW Coeff of Swapnil 13.6 Plt Count 244 MPV 9.8 Immature Gran % (Auto) 0.600 Neut % (Auto) 76.8 H Lymph % (Auto) 7.8 L [place] % (Auto) 10.3 H Eos % (Auto) 3.8 Baso % (Auto) 0.7 Absolute Neuts (auto) 10.8 H Absolute Lymphs (auto) 1.09 Nucleated RBC % 0 PT 23.1 H INR 2.1 Sodium 141 Potassium 3.4 L Chloride 106 Carbon Dioxide 28.0 Anion Gap 7 BUN 22 H Creatinine 0.84 Estim Creat Clear Calc 65.60 Est GFR (MDRD) Af Amer 113 Est GFR (MDRD) Non-Af 93 BUN/Creatinine Ratio 26.3 H Glucose 123 H Calcium 8.7 Magnesium 11/11/20 11/12/20 11/12/20 05:20 06:20 06:20 WBC 14.5 H RBC 4.01 L Hgb 12.4 L Hct 37.3 L MCV 93.0 MCH 30.9 MCHC 33.2 RDW Std Deviation 45.2 H RDW Coeff of Swapnil 13.2 Plt Count 313 MPV 9.3 Immature Gran % (Auto) 0.800 Neut % (Auto) 73.7 H Lymph % (Auto) 10.1 L [place] % (Auto) 10.2 H Eos % (Auto) 4.5 Baso % (Auto) 0.7 Absolute Neuts (auto) 10.7 H Absolute Lymphs (auto) 1.47 Nucleated RBC % 0 PT 19.3 H INR 1.7 Sodium Potassium Chloride Carbon Dioxide Anion Gap BUN Creatinine Estim Creat Clear Calc Est GFR (MDRD) Af Amer Est GFR (MDRD) Non-Af BUN/Creatinine Ratio Glucose Calcium Magnesium 1.9 11/12/20 06:20 WBC RBC Hgb Hct MCV MCH MCHC RDW Std Deviation RDW Coeff of Swapnil Plt Count MPV Immature Gran % (Auto) Neut % (Auto) Lymph % (Auto) [place] % (Auto) Eos % (Auto) Baso % (Auto) Absolute Neuts (auto) Absolute Lymphs (auto) Nucleated RBC % PT INR Sodium 136 Potassium 3.3 L Chloride 102 Carbon Dioxide 29.0 Anion Gap 5 BUN 22 H Creatinine 0.94 Estim Creat Clear Calc 58.62 Est GFR (MDRD) Af Amer 98 Est GFR (MDRD) Non-Af 81 BUN/Creatinine Ratio 23.4 H Glucose 138 H Calcium 8.9 Magnesium Microbiology 11/11/20 19:00 Sputum, Expectorated/Coughed Gram Stain - Final 11/08/20 20:15 Blood Culture (Wb) - Right Hand Blood Culture - Preliminary No growth in 48 hours. 11/08/20 20:10 Blood Culture (Wb) - Anticubital Left Blood Culture - Preliminary No growth in 48 hours. Clinical Impression(s) from Imaging Studies Chest X-Ray 11/08/20 19:55 IMPRESSION: Mild interstitial prominence bilaterally. Right perihilar mild infiltrate. Electronically Signed: Jason Alcantara DO at 19:53 EDT Tel [phone], Service support , Current Medications Acetaminophen (Acetaminophen 325 Mg Tablet) 650 mg PO Q6H PRN PRN PRN Reason: Pain Score 1-10/Temp > 100.7 F Last Admin: 11/09/20 19:46 Dose: 650 mg Documented by: Albuterol Sulfate (Albuterol 2.5 Mg/3 Ml Vial.Neb.) 2.5 mg INHALATION Q2H PRN PRN PRN Reason: sob/wheezing Albuterol/Ipratropium (Ipratropium/Albuterol Sulfate 3 Ml Ampul.Neb) 3 ml INHALATION Q4HWA.RT [facility] Last Admin: 11/12/20 07:00 Dose: 3 ml Documented by: Amlodipine Besylate (Amlodipine 10 Mg Tablet) 10 mg PO DAILY [facility] Last Admin: 11/12/20 08:17 Dose: 10 mg Documented by: Cholecalciferol (Cholecalciferol (Vit D3) 1,000 Unit (25mcg)) 5,000 unit PO DAILY [facility] Last Admin: 11/12/20 08:17 Dose: 5,000 unit Documented by: Escitalopram Oxalate (Escitalopram Oxalate 10 Mg Tablet) 10 mg PO DAILY [facility] Last Admin: 11/12/20 08:17 Dose: 10 mg Documented by: Furosemide (Furosemide 40 Mg/4 Ml Vial) 40 mg IV Q8 [facility] Last Admin: 11/12/20 05:07 Dose: 40 mg Documented by: Guaifenesin (Guaifenesin 1,200 Mg Tablet) 1,200 mg PO BID [facility] Last Admin: 11/12/20 08:17 Dose: 1,200 mg Documented by: Ceftriaxone Sodium (Rocephin) 1 gm in 50 mls @ 100 mls/hr IV Q24@2200 [facility] Last Infusion: 11/11/20 22:55 Dose: Infused Documented by: Doxycycline Hyclate 100 mg/ (Dextrose) 260 mls @ 250 mls/hr IV Q12 [facility] Last Infusion: 11/11/20 22:25 Dose: Infused Documented by: Sodium Chloride () 250 mls @ 15 mls/hr IV .[id number] PRN PRN Reason: Saline Flush Losartan Potassium (Losartan Potassium 100 Mg Tablet) 100 mg PO DAILY [facility] Last Admin: 11/12/20 08:17 Dose: 100 mg Documented by: Magnesium Chloride (Magnesium Chloride 64 Mg Delay Rel.Tablet) 128 mg PO BREAKFAST [facility] Last Admin: 11/12/20 08:17 Dose: 128 mg Documented by: Potassium Chloride (Potassium Chloride Oral Tablet 20 Meq) 40 meq PO DAILYCM [facility] Last Admin: 11/12/20 08:16 Dose: 40 meq Documented by: Pravastatin Sodium (Pravastatin 80 Mg Tablet) 80 mg PO DAILY@2200 [facility] Last Admin: 11/11/20 21:17 Dose: 80 mg Documented by: Prochlorperazine Edisylate (Prochlorperazine 10 Mg/2 Ml Vial) 5 mg IV Q4H PRN PRN PRN Reason: Breakthrough Nausea/Vomiting Sodium Chloride (0.9% Saline Lock 10 Ml Syringe) 10 - 40 ml IV UD PRN PRN Reason: SALINE FLUSH Last Admin: 11/12/20 05:08 Dose: 10 ml Documented by: Warfarin Sodium (Warfarin 4 Mg Tablet) 4 mg PO DAILY@1700 [facility] Last Admin: 11/11/20 16:56 Dose: 4 mg Documented by: Medical Necessity - Tobacco Use Smoking Status: Former smoker Assessment/Plan All Active Problems (Last Reviewed 11/08/20 @ 22:[address] Karl Lagos MD) Respiratory insufficiency (Acute) Community acquired pneumonia (Acute) Heart failure (Acute) H/O coronary artery bypass surgery (Resolved 04/30/01) Hematoma of left lower extremity (Resolved) Hematoma of lower limb (Resolved) Nonhealing ulcer of left lower leg (Resolved) Pneumonia (Resolved) Ulcer of right lower extremity with fat layer exposed (Resolved) RECOMMENDATIONS: 1. Continue aggressive diuretic regimen as tolerated by hemodynamics and renal function. 2. Wean supplemental oxygen to maintain saturations at or above 90%. 3. Encourage incentive spirometer use and mobilize patient as tolerated. 4. Continue empiric antimicrobials x7 days. 5. Continue nocturnal Pap therapy. IMPRESSIONS: 1. Acute hypoxic respiratory failure Clinical suspicion for a significant amount of diastolic congestive heart failure/cor pulmonale leading to acute presentation. Recommend continuing diuretic therapy as tolerated by hemodynamics and renal function. In addition, antibiotics will be continued with plans to complete a 7-day treatment course. Continue to wean supplemental oxygen to maintain saturations at or above 90%. Encourage incentive spirometer use and mobilize patient as tolerated. 2. Chronic A. fib/aortic valve replacement/acute on chronic diastolic CHF/CAD status post CABG The patient is on appropriate medical therapy at this time. 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 Cardiac optimization would be recommended. 3. Hypokalemia Electrolyte repletion as ordered. Recheck levels in the morning. 4. Hyperlipidemia/hypertension/advanced age/ELIJAH Complicates care, management, recovery and prognosis. Okay to continue with baseline medications and ELIJAH therapy from my perspective. This note was generated with [employer] software. It may contain incorrect words, spelling, and punctuation that were not noted in checking the note before signing. Inpatient E&M: 51417 [facility] Hosp L3
--- NOTE | 2020-11-12 11:02 | PCM.PN.HOSP ---
Patient Problems: Active and Suspected Problems (Last Reviewed 11/08/20 @ 22:[address] Karl Lagos MD) Respiratory insufficiency (Acute) Community acquired pneumonia (Acute) Heart failure (Acute) Subjective: Patient seen and examined. He had no complaints today. His shortness of breath is improving. He is down to 4L of oxygen by nasal canula and saturating well. 2D echo ordered. Vitals/I&O's: Vital Signs Temp Pulse Resp BP Pulse Ox 98.7 F 87 23 H 131/63 H 96 11/12/20 05:00 11/12/20 09:53 11/12/20 07:00 11/12/20 05:00 11/12/20 07:00 Oxygen Flow Rate (L/min) 6 Oxygen Delivery Method Nasal Cannula Weight: 184 lb 15.485 oz Body Mass Index (BMI) 29.6 Intake and Output for Last 24 Hours 11/10/20 11/11/20 11/12/20 23:59 23:59 23:59 Intake Total 1180 / 1300 1650 / 1650 60 / 60 Output Total 350 / 550 2300 / 2300 1150 / 1150 Balance 830 / 750 -650 / -650 -1090 / -1090 General: Alert, Oriented x3, Cooperative HEENT: Atraumatic, PERRLA, EOMI, Normocephalic; hard of hearing Oral: Dry Mucosa Neck: Supple, No JVD, Negative Carotid Bruits Lungs: diminished breath sounds bibasally, no crackles . On 4L of oxygen by nasal canula Cardiovascular: Regular rate, Regular Rhythm, Normal S1, Normal S2, No murmurs Abdomen: Bowel Sounds Present, Soft, Non Tender, Non-Distended, No Hepato-splenomegaly Extremities: No clubbing, No cyanosis, No edema, Capillary Refill Less than 3 Seconds Skin: No rashes, No breakdown Musculoskeletal: No Tenderness to Palpation of Joints or Extremities Lymphatic: No Cervical, Supraclavicular, or Inguinal Adenopathy Neurological: Cranial nerves II-XII grossly intact, Neuro grossly intact, Motor Exam 5/5 strength throughout Psych/Mental Status: Normal Affect, Appropriate, Alert and oriented to time, place, person, mood and affect Microbiology Past 72 Hours 11/11/20 19:00 Sputum, Expectorated/Coughed Gram Stain - Final 11/11/20 19:00 Sputum, Expectorated/Coughed Respiratory Culture - Preliminary 11/08/20 20:15 Blood Culture (Wb) - Right Hand Blood Culture - Preliminary No growth in 48 hours. 11/08/20 20:10 Blood Culture (Wb) - Anticubital Left Blood Culture - Preliminary No growth in 48 hours. 11/08/20 00:13 Urine, Clean Catch Legionella Antigen - Final 11/08/20 00:13 Urine, Clean Catch Streptococcus pneumoniae Antigen (M - Final Laboratory Results 11/11/20 05:20: Magnesium 1.9 11/12/20 06:20: PT 19.3 H, INR 1.7 11/12/20 06:20: WBC 14.5 H, RBC 4.01 L, Hgb 12.4 L, Hct 37.3 L, MCV 93.0, MCH 30.9, MCHC 33.2, RDW Std Deviation 45.2 H, RDW Coeff of Swapnil 13.2, Plt Count 313, MPV 9.3, Immature Gran % (Auto) 0.800, Neut % (Auto) 73.7 H, Lymph % (Auto) 10.1 L, [place] % (Auto) 10.2 H, Eos % (Auto) 4.5, Baso % (Auto) 0.7, Absolute Neuts (auto) 10.7 H, Absolute Lymphs (auto) 1.47, Nucleated RBC % 0 11/12/20 06:20: Sodium 136, Potassium 3.3 L, Chloride 102, Carbon Dioxide 29.0, Anion Gap 5, BUN 22 H, Creatinine 0.94, Estim Creat Clear Calc 58.62, Est GFR (MDRD) Af Amer 98, Est GFR (MDRD) Non-Af 81, BUN/Creatinine Ratio 23.4 H, Glucose 138 H, Calcium 8.9 Current Medications Acetaminophen (Acetaminophen 325 Mg Tablet) 650 mg PO Q6H PRN PRN PRN Reason: Pain Score 1-10/Temp > 100.7 F Last Admin: 11/09/20 19:46 Dose: 650 mg Documented by: Albuterol Sulfate (Albuterol 2.5 Mg/3 Ml Vial.Neb.) 2.5 mg INHALATION Q2H PRN PRN PRN Reason: sob/wheezing Albuterol/Ipratropium (Ipratropium/Albuterol Sulfate 3 Ml Ampul.Neb) 3 ml INHALATION Q4HWA.RT [facility] Last Admin: 11/12/20 07:00 Dose: 3 ml Documented by: Amlodipine Besylate (Amlodipine 10 Mg Tablet) 10 mg PO DAILY [facility] Last Admin: 11/12/20 08:17 Dose: 10 mg Documented by: Cholecalciferol (Cholecalciferol (Vit D3) 1,000 Unit (25mcg)) 5,000 unit PO DAILY [facility] Last Admin: 11/12/20 08:17 Dose: 5,000 unit Documented by: Escitalopram Oxalate (Escitalopram Oxalate 10 Mg Tablet) 10 mg PO DAILY [facility] Last Admin: 11/12/20 08:17 Dose: 10 mg Documented by: Furosemide (Furosemide 40 Mg/4 Ml Vial) 40 mg IV Q8 [facility] Last Admin: 11/12/20 05:07 Dose: 40 mg Documented by: Guaifenesin (Guaifenesin 1,200 Mg Tablet) 1,200 mg PO BID [facility] Last Admin: 11/12/20 08:17 Dose: 1,200 mg Documented by: Ceftriaxone Sodium (Rocephin) 1 gm in 50 mls @ 100 mls/hr IV Q24@2200 [facility] Last Infusion: 11/11/20 22:55 Dose: Infused Documented by: Doxycycline Hyclate 100 mg/ (Dextrose) 260 mls @ 250 mls/hr IV Q12 [facility] Last Admin: 11/12/20 11:01 Dose: 250 mls/hr Documented by: Sodium Chloride () 250 mls @ 15 mls/hr IV .[id number] PRN PRN Reason: Saline Flush Losartan Potassium (Losartan Potassium 100 Mg Tablet) 100 mg PO DAILY [facility] Last Admin: 11/12/20 08:17 Dose: 100 mg Documented by: Magnesium Chloride (Magnesium Chloride 64 Mg Delay Rel.Tablet) 128 mg PO BREAKFAST [facility] Last Admin: 11/12/20 08:17 Dose: 128 mg Documented by: Potassium Chloride (Potassium Chloride Oral Tablet 20 Meq) 40 meq PO DAILYCM [facility] Last Admin: 11/12/20 08:16 Dose: 40 meq Documented by: Pravastatin Sodium (Pravastatin 80 Mg Tablet) 80 mg PO DAILY@2200 [facility] Last Admin: 11/11/20 21:17 Dose: 80 mg Documented by: Prochlorperazine Edisylate (Prochlorperazine 10 Mg/2 Ml Vial) 5 mg IV Q4H PRN PRN PRN Reason: Breakthrough Nausea/Vomiting Sodium Chloride (0.9% Saline Lock 10 Ml Syringe) 10 - 40 ml IV UD PRN PRN Reason: SALINE FLUSH Last Admin: 11/12/20 05:08 Dose: 10 ml Documented by: Warfarin Sodium (Warfarin 4 Mg Tablet) 4 mg PO DAILY@1700 [facility] Last Admin: 11/11/20 16:56 Dose: 4 mg Documented by: STROKE Vital Signs/Narrative: Vital Signs Pulse 11/12/20 09:53 87 Medical Necessity - Tobacco Use Smoking Status: Former smoker Assessment/Plan All Active Problems (Last Reviewed 11/08/20 @ 22:[address] Karl Lagos MD) Respiratory insufficiency (Acute) Community acquired pneumonia (Acute) Heart failure (Acute) H/O coronary artery bypass surgery (Resolved 04/30/01) Hematoma of left lower extremity (Resolved) Hematoma of lower limb (Resolved) Nonhealing ulcer of left lower leg (Resolved) Pneumonia (Resolved) Ulcer of right lower extremity with fat layer exposed (Resolved) #Acute hypoxic respiratory failure due to community acquired pneumonia a nd acute on chronic HFpEF feeling much better. Now on 4L of oxygen by nasal canula pulmonology on board breathing atreatment with bronchodilators titrate oxygen to maintain sats>90% on IV ceftriaxone and doxycycline 2D echo ordered. #Hemoptysis: resolved #Hypertension: Losartan and amlodipine. #Hyperlipidemia: on statin #Chronic afib s./o ablation coumadin resumed. INR today is 1.7 #Aortic valve replacement: stable. #CAD s/p CABG: sable. On statin and losartan. #ELIJAH; on CPAP qhs DVT prophylaxis:not indicated as patient is on coumadin. INR today is 1.7 Inpatient E&M: 15606 Subs Hosp L2
[2020-11-12] MEDS: Ceftriaxone 1 GM/50 ML BAG IV (21:12)
[2020-11-12] MEDS: Pravastatin 80 MG Tablet PO (21:19)
--- NOTE | 2020-11-12 23:36 | CPS ---
pt refusing at this time
[2020-11-13] VITALS (11 sets, daily range): BP systolic 115–118; BP diastolic 64–73; PULSE 71–100; RESP 17–18; TEMP 36.3–36.6; O2SAT 88–97
[2020-11-13 05:29] LABS: Absolute Lymphocyte Count 1.56 X10^3/uL (0.83-4.51); Absolute Neutrophil Count 9.8 X10^3/uL (2.0-7.7); Basophil# 0.13 X10^3/uL; Basophil% 0.9 % (0-1); Eosinophil# 0.76 X10^3/uL; Eosinophils% 5.5 % (0-5); Hematocrit 37.4 % (40-54); Hemoglobin 12.2 g/dL (13.0-16.5); Lymphocyte # 1.56 X10^3/ul (4.0); Lymphocyte % 11.3 % (19-41); Mean Corp Hgb Conc 32.6 g/dL (32-36); Mean Corpuscular Hgb 30.6 pg (27.0-32.0); Mean Corpuscular Volume 93.7 fL (80-94); Mean Platelet Vol. 9.3 fl (6.2-12.0); Monocyte# 1.44 X10^3/uL; Monocyte% 10.4 % (0-10); NRBC Flagged by Analyzer 0 % (0-5); Neutrophil # 9.75 X10^3/uL (2.7-7.7); Neutrophil % 70.8 % (47-70); Platelet Count 313 K/mm3 (150-450); RBC Distribution Width CV 13.2 % (11.6-14.6); RBC Distribution Width SD 45.4 fl (35.1-43.9); Red Blood Count 3.99 M/mm3 (4.6-6.2); White Blood Count 13.8 K/mm3 (4.4-11.0)
[2020-11-13 05:43] LABS: Anion Gap 6 (5-15); BUN 29 mg/dL (7-18); BUN/Creat Ratio 31.9 RATIO (10-20); Calcium,Total 9.2 mg/dL (8.5-10.1); Chloride 103 mmol/L (98-107); Creatinine, Serum 0.91 mg/dL (0.70-1.30); EST Glomerular Filtration Rate 85 mL/min (>60); Est Glom Filt Rate - Afr Amer 103 mL/min (>60); Estimated Creatinine Clearance 60.55 ml/min; Glucose 134 mg/dL (74-106); Potassium 3.6 mmol/L (3.5-5.1); Sodium Level 137 mmol/L (136-145)
[2020-11-13] MEDS: Furosemide 40 MG/4 ML Vial IV ×2 (05:47→14:13)
[2020-11-13] MEDS: 0.9% Saline Lock 10 ML Syringe IV ×3 (05:48→14:13)
[2020-11-13] MEDS: Ipratropium/Albuterol Sulfate 3 ML AMPUL.NEB INHALATION ×2 (06:57→10:41)
[2020-11-13] MEDS: Magnesium Chloride 64 MG Delay Rel.Tablet 128 MG PO (09:18)
[2020-11-13] MEDS: Potassium Chloride Oral Tablet 20 MEQ 40 MEQ PO (09:18)
[2020-11-13] MEDS: Escitalopram Oxalate 10 MG Tablet PO (09:18)
[2020-11-13] MEDS: Losartan Potassium 100 MG Tablet PO (09:19)
[2020-11-13] MEDS: guaiFENesin 1,200 MG Tablet 1200 MG PO (09:19)
[2020-11-13] MEDS: amLODIPine 10 MG Tablet PO (09:19)
--- NOTE | 2020-11-13 09:24 | PN_ITS ---
Patient Problems: Active and Suspected Problems (Last Reviewed 11/08/20 @ 22:[address] Karl Lagos MD) Respiratory insufficiency (Acute) Community acquired pneumonia (Acute) Heart failure (Acute) Subjective: The patient was seen and examined at the bedside this morning. Events from the last 24 hours have been reviewed. The patient is currently afebrile, hemodynamically stable and maintaining appropriate oxygen saturations on 3 L/min via nasal cannula. Renal function remains stable on scheduled IV diuretic therapy. Objective: The patient's most recent lab work, culture data and imaging studies have all been personally reviewed. Surface echocardiogram from September 2019 revealed moderate concentric LVH with an ejection fraction of 65% and stage III diastolic dysfunction. Pulmonary artery systolic pressure was estimated to be 80 mmHg. Severe tricuspid valve insufficiency was noted. Respiratory viral panel was negative. Rapid coronavirus antigen testing was negative. Strep and urine Legionella antigens were negative. Blood and sputum cultures have demonstrated no growth to date. - Physical Exam Vitals/I&O's: Vital Signs Temp Pulse Resp BP Pulse Ox 97.4 F L 90 18 118/64 97 11/13/20 09:15 11/13/20 09:15 11/13/20 09:15 11/13/20 09:15 11/13/20 09:15 Oxygen Flow Rate (L/min) 3 Oxygen Delivery Method Room Air Weight: 184 lb 15.485 oz Body Mass Index (BMI) 29.6 Intake and Output for Last 24 Hours 11/11/20 11/12/20 11/13/20 23:59 23:59 23:59 Intake Total 1650 / 1650 1470 / 1980 710 / 710 Output Total 2300 / 2300 1800 / 3250 1900 / 1900 Balance -650 / -650 -330 / -1270 -1190 / -1190 General: Alert, Cooperative, No apparent distress HEENT: Atraumatic, Normocephalic Oral: No Gingival or Mucosal Lesions/ Ulcerations Neck: Supple, No Nodes, Trachea Midline Lungs: No rhonchi, No wheeze, No rales, Diminished Cardiovascular: Regular rate, Regular Rhythm, Murmur Abdomen: Bowel Sounds Present, Soft, Non Tender, Obese Extremities: No clubbing, No cyanosis Skin: No breakdown Musculoskeletal: No Tenderness to Palpation of Joints or Extremities Lymphatic: No Cervical, Supraclavicular, or Inguinal Adenopathy Neurological: Cranial nerves II-XII grossly intact, Neuro grossly intact Psych/Mental Status: Normal Affect, Appropriate Labs (Last 48 Hours) 11/11/20 11/12/20 11/12/20 05:20 06:20 06:20 WBC 14.5 H RBC 4.01 L Hgb 12.4 L Hct 37.3 L MCV 93.0 MCH 30.9 MCHC 33.2 RDW Std Deviation 45.2 H RDW Coeff of Swapnil 13.2 Plt Count 313 MPV 9.3 Immature Gran % (Auto) 0.800 Neut % (Auto) 73.7 H Lymph % (Auto) 10.1 L [place] % (Auto) 10.2 H Eos % (Auto) 4.5 Baso % (Auto) 0.7 Absolute Neuts (auto) 10.7 H Absolute Lymphs (auto) 1.47 Nucleated RBC % 0 PT 19.3 H INR 1.7 Sodium Potassium Chloride Carbon Dioxide Anion Gap BUN Creatinine Estim Creat Clear Calc Est GFR (MDRD) Af Amer Est GFR (MDRD) Non-Af BUN/Creatinine Ratio Glucose Calcium Magnesium 1.9 11/12/20 11/13/20 11/13/20 06:20 05:08 05:08 WBC 13.8 H RBC 3.99 L Hgb 12.2 L Hct 37.4 L MCV 93.7 MCH 30.6 MCHC 32.6 RDW Std Deviation 45.4 H RDW Coeff of Swapnil 13.2 Plt Count 313 MPV 9.3 Immature Gran % (Auto) 1.100 H Neut % (Auto) 70.8 H Lymph % (Auto) 11.3 L [place] % (Auto) 10.4 H Eos % (Auto) 5.5 H Baso % (Auto) 0.9 Absolute Neuts (auto) 9.8 H Absolute Lymphs (auto) 1.56 Nucleated RBC % 0 PT INR Sodium 136 137 Potassium 3.3 L 3.6 Chloride 102 103 Carbon Dioxide 29.0 28.0 Anion Gap 5 6 BUN 22 H 29 H Creatinine 0.94 0.91 Estim Creat Clear Calc 58.62 60.55 Est GFR (MDRD) Af Amer 98 103 Est GFR (MDRD) Non-Af 81 85 BUN/Creatinine Ratio 23.4 H 31.9 H Glucose 138 H 134 H Calcium 8.9 9.2 Magnesium Microbiology 11/11/20 19:00 Sputum, Expectorated/Coughed Gram Stain - Final 11/11/20 19:00 Sputum, Expectorated/Coughed Respiratory Culture - Preliminary 11/08/20 20:15 Blood Culture (Wb) - Right Hand Blood Culture - Preliminary No growth in 48 hours. 11/08/20 20:10 Blood Culture (Wb) - Anticubital Left Blood Culture - Preliminary No growth in 48 hours. Clinical Impression(s) from Imaging Studies Chest X-Ray 11/08/20 19:55 IMPRESSION: Mild interstitial prominence bilaterally. Right perihilar mild infiltrate. Electronically Signed: Jason Alcantara DO at 19:53 EDT Tel [phone], Service support , Current Medications Acetaminophen (Acetaminophen 325 Mg Tablet) 650 mg PO Q6H PRN PRN PRN Reason: Pain Score 1-10/Temp > 100.7 F Last Admin: 11/09/20 19:46 Dose: 650 mg Documented by: Albuterol Sulfate (Albuterol 2.5 Mg/3 Ml Vial.Neb.) 2.5 mg INHALATION Q2H PRN PRN PRN Reason: sob/wheezing Albuterol/Ipratropium (Ipratropium/Albuterol Sulfate 3 Ml Ampul.Neb) 3 ml INHALATION Q4HWA.RT [facility] Last Admin: 11/13/20 06:57 Dose: 3 ml Documented by: Amlodipine Besylate (Amlodipine 10 Mg Tablet) 10 mg PO DAILY [facility] Last Admin: 11/12/20 08:17 Dose: 10 mg Documented by: Cholecalciferol (Cholecalciferol (Vit D3) 25 Mcg Tablet) 125 mcg PO DAILY [facility] Escitalopram Oxalate (Escitalopram Oxalate 10 Mg Tablet) 10 mg PO DAILY [facility] Last Admin: 11/12/20 08:17 Dose: 10 mg Documented by: Furosemide (Furosemide 40 Mg/4 Ml Vial) 40 mg IV Q8 [facility] Last Admin: 11/13/20 05:47 Dose: 40 mg Documented by: Guaifenesin (Guaifenesin 1,200 Mg Tablet) 1,200 mg PO BID [facility] Last Admin: 11/12/20 21:19 Dose: 1,200 mg Documented by: Ceftriaxone Sodium (Rocephin) 1 gm in 50 mls @ 100 mls/hr IV Q24@2200 [facility] Last Infusion: 11/12/20 22:31 Dose: Infused Documented by: Doxycycline Hyclate 100 mg/ (Dextrose) 260 mls @ 250 mls/hr IV Q12 [facility] Last Infusion: 11/12/20 23:47 Dose: Infused Documented by: Sodium Chloride () 250 mls @ 15 mls/hr IV .[id number] PRN PRN Reason: Saline Flush Losartan Potassium (Losartan Potassium 100 Mg Tablet) 100 mg PO DAILY [facility] Last Admin: 11/12/20 08:17 Dose: 100 mg Documented by: Magnesium Chloride (Magnesium Chloride 64 Mg Delay Rel.Tablet) 128 mg PO BREAKFAST [facility] Last Admin: 11/12/20 08:17 Dose: 128 mg Documented by: Potassium Chloride (Potassium Chloride Oral Tablet 20 Meq) 40 meq PO DAILYCM [facility] Last Admin: 11/12/20 08:16 Dose: 40 meq Documented by: Pravastatin Sodium (Pravastatin 80 Mg Tablet) 80 mg PO DAILY@2200 [facility] Last Admin: 11/12/20 21:19 Dose: 80 mg Documented by: Prochlorperazine Edisylate (Prochlorperazine 10 Mg/2 Ml Vial) 5 mg IV Q4H PRN PRN PRN Reason: Breakthrough Nausea/Vomiting Sodium Chloride (0.9% Saline Lock 10 Ml Syringe) 10 - 40 ml IV UD PRN PRN Reason: SALINE FLUSH Last Admin: 11/13/20 05:48 Dose: 10 ml Documented by: Warfarin Sodium (Warfarin 4 Mg Tablet) 4 mg PO DAILY@1700 [facility] Last Admin: 11/12/20 16:36 Dose: 4 mg Documented by: Medical Necessity - Tobacco Use Smoking Status: Former smoker Assessment/Plan All Active Problems (Last Reviewed 11/08/20 @ 22:[address] Karl Lagos MD) Respiratory insufficiency (Acute) Community acquired pneumonia (Acute) Heart failure (Acute) H/O coronary artery bypass surgery (Resolved 04/30/01) Hematoma of left lower extremity (Resolved) Hematoma of lower limb (Resolved) Nonhealing ulcer of left lower leg (Resolved) Pneumonia (Resolved) Ulcer of right lower extremity with fat layer exposed (Resolved) RECOMMENDATIONS: 1. Continue diuretic regimen as tolerated by hemodynamics and renal function. 2. Wean supplemental oxygen to maintain saturations at or above 90%. 3. Encourage incentive spirometer use and mobilize patient as tolerated. 4. Continue empiric antimicrobials x7 days. 5. Continue nocturnal Pap therapy. IMPRESSIONS: 1. Acute hypoxic respiratory failure Clinical suspicion for a significant amount of diastolic congestive heart fa ilure/cor pulmonale leading to acute presentation. Recommend continuing diuretic therapy as tolerated by hemodynamics and renal function. In addition, antibiotics will be continued with plans to complete a 7-day treatment course. Continue to wean supplemental oxygen to maintain saturations at or above 90%. Encourage incentive spirometer use and mobilize patient as tolerated. 2. Chronic A. fib/aortic valve replacement/acute on chronic diastolic CHF/CAD status post CABG The patient is on appropriate medical therapy at this time. 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 Cardiac optimization would be recommended. 3. Hyperlipidemia/hypertension/advanced age/ELIJAH Complicates care, management, recovery and prognosis. Okay to continue with baseline medications and ELIJAH therapy from my perspective. This note was generated with [employer] dictation software. It may contain incorrect words, spelling, and punctuation that were not noted in checking the note before signing. Inpatient E&M: 47616 Subs Hosp L2
--- NOTE | 2020-11-13 15:53 | PCM.DC ---
- Discharge Diagnoses Current Active Problems: Current Active and Chronic Problems (Last Reviewed 11/08/20 @ 22:[address] 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) H/O aortic valve replacement (Chronic 04/30/01) AVR using a [address] [place] Mechanical Prosthesis Longstanding persistent atrial fibrillation (Chronic) Secondary pulmonary arterial hypertension (Chronic) Left ventricular diastolic dysfunction (Chronic) Chronic diastolic heart failure (Chronic) Essential (primary) hypertension (Chronic) Hyperlipidemia (Chronic) retirement current use of anticoagulant (Chronic) You will use the following diet at home:: Cardiac Your food should be the consistency of: Regular Your liquids should be the consistency of: Regular/Thin Weight Bearing Status: Weight bearing as tolerated Call your doctor if you observe: Fever of 101 or Higher, Shortness of breath, Swelling in the ankles, Increased palpitations (irregular heartbeat) Instructions: ED Heart Failure Congestive Right Additional Instructions: use oxygen 2L for shortness of breath as needed. Allergies/Adverse Reactions: Allergies No Known Allergies Allergy (Verified 11/08/20 18:40) Medications to take at Discharge magnesium oxide 400 mg (241.3 mg magnesium) tablet 400 mg PO BREAKFAST tab 10/01/17 Cholecalciferol (Vitamin D3) [Vitamin D3] 125 mcg PO DAILY 10/03/19 pravastatin 80 mg tablet 80 mg PO DAILY #90 tab 02/06/20 warfarin 4 mg tablet 4 mg PO DAILY #90 tab 02/27/20 furosemide 40 mg tablet 80 mg PO BID #360 tab 06/05/20 escitalopram oxalate 10 mg tablet 10 mg PO DAILY tab 11/01/20 losartan 100 mg tablet 100 mg PO DAILY #90 tab 11/01/20 potassium chloride 20 mEq tablet,extended release 20 meq PO DAILY tab 11/01/20 Amlodipine Besylate [Norvasc] 10 mg PO DAILY 11/08/20 levoFLOXacin tablet [Levaquin tablet] 750 mg PO DAILY #3 tab 11/13/20 The following prescriptions were given: levoFLOXacin tablet [Levaquin tablet] 750 mg PO DAILY #3 tab Transmission Status: Pending to [id number] Primary Care Physician: Fernando Cortez MD [Primary Care Provider] - Please follow up with your Primary Care Physician in: 1-2 weeks Test Results: Test results from this visit will be discussed in further detail at your follow-up appointment, if applicable. Please Follow Up With: Albert Mojica MD When: 1-2 weeks Proposed Discharge Date: 11/13/20
--- NOTE | 2020-11-13 15:58 | CASEMGMT ---
Pt does qualify for 2L w/ exertion at discharge at this time and pt had stated previously preference for [employer]. Order faxed to [employer] and [employer] notified of need for tank and pt discharge, Ayaka voices understanding. Jayda, PCU charge, updated on all, voices understanding. Pt updated on all and all questions answered at this time. Clotilde BRAVO CM
--- NOTE | 2020-11-13 16:32 | PHA.DC.MC ---
Pharmacy Service has performed discharge medication reconciliation and counseling for this patient. 1. LEVOFLOXACIN 750MG PO DAILY X 3 DAYS The patient's discharge medication list was reviewed for discrepancies and discrepancies were resolved. Home Medications magnesium oxide 400 mg (241.3 mg magnesium) tablet 400 mg PO BREAKFAST tab 10/01/17 Cholecalciferol (Vitamin D3) [Vitamin D3] 125 mcg PO DAILY 10/03/19 pravastatin 80 mg tablet 80 mg PO DAILY #90 tab 02/06/20 warfarin 4 mg tablet 4 mg PO DAILY #90 tab 02/27/20 furosemide 40 mg tablet 80 mg PO BID #360 tab 06/05/20 escitalopram oxalate 10 mg tablet 10 mg PO DAILY tab 11/01/20 losartan 100 mg tablet 100 mg PO DAILY #90 tab 11/01/20 potassium chloride 20 mEq tablet,extended release 20 meq PO DAILY tab 11/01/20 Amlodipine Besylate [Norvasc] 10 mg PO DAILY 11/08/20 levoFLOXacin tablet [Levaquin tablet] 750 mg PO DAILY #3 tab 11/13/20 The patient was counseled on the following discharge medications and changes in medications for homegoing were reviewed. The Reason for Use, instructions for use, and potential side effects were reviewed for all new medications. The patient's questions regarding all of their medications were answered. The patient was able to verbally demonstrate an understanding of their discharge medications.
--- NOTE | 2020-11-13 21:02 | PCM.DC.SUM ---
Discharge Date and Diagnosis - Problem List Patient Problems: Active and Suspected Problems (Last Reviewed 11/08/20 @ 22:[address] Karl Lagos MD) Respiratory insufficiency (Acute) Community acquired pneumonia (Acute) Heart failure (Acute) Date of Admission: 11/08/20 Date of Discharge: 11/13/20 - Primary Discharge Diagnosis Acute Problems: Active Problems (Last Reviewed 11/08/20 @ 22:[address] Karl Lagos MD) acute hypoxic respiratory failure Community acquired pneumonia (Acute) Heart failure (Acute) - Secondary Discharge Diagnosis Chronic Problems: Chronic Problems (Last Reviewed 11/08/20 @ 22:[address] 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 Right perihilar mild infiltrate. Electronically Signed: Jason Alcantara DO at 19:53 EDT Tel [phone], Service support , pulmonology- Dr Esteban Operations: None Procedures: None Summary of Care Provided: The patient is a 84 year old M with a PMh as outlined who was admitted via the ED on 11/08/2020 with a complaint of shortness of breath, with associated chills and fever. he also had associated anorexia and fatigue and a productive cough. HE said his oxygen level at home was ~ 60%. CXR showed mild interstitial prominence bilaterally, and right perihilar mild infiltrate. He was admitted to be managed for acute hypoxic respiratory insufficiency due to community-acquired pneumonia and acute exacerbation of heart failure. BNP was 252. He was diuresed with IV Lasix and put on fluid restriction and started on IV ceftriaxone and acyclovir. Patient's oxygen requirements however increased. He was requiring 10 L of oxygen at its peak. Pulmonology was therefore consulted. Was continued on IV diuresis and Lasix was increased to 40 mg 3 times daily. Shortness of breath gradually improved. 2D echocardiogram done showed normal left ventricular size with moderate concentric left ventricular hypertrophy and low ventricular systolic function which was normal. Estimated EF was 55% with stage III diastolic dysfunction and no regional wall motion abnormalities noted. Pulmonary artery systolic pressure was 44 mmHg and he had a stable appearing mechanical aortic valve apparatus. Patient gradually improved. Walking pulse ox done showed that he dropped to 88% with ambulation on room air and required 2 L of oxygen to increase to 93% on room air. He therefore required home oxygen of 2 L. He remained stable and was discharged home on 11/13/2020 on p.o. Lasix 40 mg twice daily. He was discharged home on 2 L of oxygen to use as needed for shortness of breath. He was also discharged with a prescription for p.o. levofloxacin 750 mg daily x3 tablets to complete a 7-day course of antibiotics. He is follow-up with his primary care doctor and cardiology. Patient seen and examined prior to discharge. He had no complaints. Review of systems otherwise negative. Labs and vitals reviewed. Home medication reviewed and reconciled. O/E: Vital Signs Temp Pulse Resp BP Pulse Ox 97.4 F L 90 18 118/64 97 11/13/20 16:04 11/13/20 16:04 11/13/20 16:04 11/13/20 16:04 11/13/20 16:04 General: Alert, Oriented x3, Cooperative HEENT: Atraumatic, PERRLA, EOMI, Normocephalic; hard of hearing Oral: Dry Mucosa Neck: Supple, No JVD, Negative Carotid Bruits Lungs: diminished breath sounds bibasally, no crackles . On 2L of oxygen by nasal canula Cardiovascular: Regular rate, Regular Rhythm, Normal S1, Normal S2, No murmurs Abdomen: Bowel Sounds Present, Soft, Non Tender, Non-Distended, No Hepato-splenomegaly Extremities: No clubbing, No cyanosis, No edema, Capillary Refill Less than 3 Seconds Skin: No rashes, No breakdown Musculoskeletal: No Tenderness to Palpation of Joints or Extremities Lymphatic: No Cervical, Supraclavicular, or Inguinal Adenopathy Neurological: Cranial nerves II-XII grossly intact, Neuro grossly intact, Motor Exam 5/5 strength throughout Psych/Mental Status: Normal Affect, Appropriate, Alert and oriented to time, place, person, mood and affect Plan is for discharge home on 11/13/2020 Patient Problems: Active and Suspected Problems (Last Reviewed 11/08/20 @ 22:[address] Karl Lagos MD) Respiratory insufficiency (Acute) Community acquired pneumonia (Acute) Heart failure (Acute) - Physical Exam Vitals/I&O's: Vital Signs Temp Pulse Resp BP Pulse Ox 97.4 F L 90 18 118/64 97 11/13/20 16:04 11/13/20 16:04 11/13/20 16:04 11/13/20 16:04 11/13/20 16:04 Oxygen Flow Rate (L/min) [ 2 AMBULATING with Oxygen #1] Oxygen Flow Rate (L/min) 3 Oxygen Delivery Method Room Air Weight: 184 lb 15.485 oz Body Mass Index (BMI) 29.6 Intake and Output for Last 24 Hours 11/11/20 11/12/20 11/13/20 23:59 23:59 23:59 Intake Total 1650 / 1650 1470 / 1980 1210 / 1210 Output Total 2300 / 2300 1800 / 3250 2450 / 2450 Balance -650 / -650 -330 / -1270 -1240 / -1240 Microbiology Past 72 Hours 11/11/20 19:00 Sputum, Expectorated/Coughed Gram Stain - Final 11/11/20 19:00 Sputum, Expectorated/Coughed Respiratory Culture - Preliminary 11/08/20 20:15 Blood Culture (Wb) - Right Hand Blood Culture - Preliminary No growth in 48 hours. 11/08/20 20:10 Blood Culture (Wb) - Anticubital Left Blood Culture - Preliminary No growth in 48 hours. Laboratory Results 11/13/20 05:08: WBC 13.8 H, RBC 3.99 L, Hgb 12.2 L, Hct 37.4 L, MCV 93.7, MCH 30.6, MCHC 32.6, RDW Std Deviation 45.4 H, RDW Coeff of Swapnil 13.2, Plt Count 313, MPV 9.3, Immature Gran % (Auto) 1.100 H, Neut % (Auto) 70.8 H, Lymph % (Auto) 11.3 L, [place] % (Auto) 10.4 H, Eos % (Auto) 5.5 H, Baso % (Auto) 0.9, Absolute Neuts (auto) 9.8 H, Absolute Lymphs (auto) 1.56, Nucleated RBC % 0 11/13/20 05:08: Sodium 137, Potassium 3.6, Chloride 103, Carbon Dioxide 28.0, Anion Gap 6, BUN 29 H, Creatinine 0.91, Estim Creat Clear Calc 60.55, Est GFR (MDRD) Af Amer 103, Est GFR (MDRD) Non-Af 85, BUN/Creatinine Ratio 31.9 H, Glucose 134 H, Calcium 9.2 Discharge Diet: Low fat/ Low Cholesterol Discharge Activity: Return to Normal Activity Weight Bearing Status: Weight bearing as tolerated Call your doctor if you observe: Fever of 101 or Higher, Shortness of breath, Swelling in the ankles, Increased palpitations (irregular heartbeat) Home Medications: Medications to take at Discharge magnesium oxide 400 mg (241.3 mg magnesium) tablet 400 mg PO BREAKFAST tab 10/01/17 Cholecalciferol (Vitamin D3) [Vitamin D3] 125 mcg PO DAILY 10/03/19 pravastatin 80 mg tablet 80 mg PO DAILY #90 tab 02/06/20 warfarin 4 mg tablet 4 mg PO DAILY #90 tab 02/27/20 furosemide 40 mg tablet 80 mg PO BID #360 tab 06/05/20 escitalopram oxalate 10 mg tablet 10 mg PO DAILY tab 11/01/20 losartan 100 mg tablet 100 mg PO DAILY #90 tab 11/01/20 potassium chloride 20 mEq tablet,extended release 20 meq PO DAILY tab 11/01/20 Amlodipine Besylate [Norvasc] 10 mg PO DAILY 11/08/20 levoFLOXacin tablet [Levaquin tablet] 750 mg PO DAILY #3 tab 11/13/20 Following Prescriptions Were Given to Patient: levoFLOXacin tablet [Levaquin tablet] 750 mg PO DAILY #3 tab Transmission Status: Received by [id number] Primary Care Physician: Fernando Cortez MD [Primary Care Provider] - Please follow up with your Primary Care Physician in: 1-2 weeks Please Follow Up With: Albert Mojica MD When: 1-2 weeks Please Follow Up With: Fernando Cortez MD Patient Instructions: ED Heart Failure Congestive Right Disposition: Home Minutes spent on discharge:: 45 Patient Condition:: Stable Medical Necessity - Tobacco Use Smoking Status: Former smoker Meaningful Use Info Meaningful Use Diagnoses (Choose all that apply): CHF - CHF HERIBERTO/ARB ordered at discharge?: Yes Documented LVEF (%): 55 Inpatient E&M: 44079 Disch Hosp
--- NOTE | 2020-11-14 10:52 | NURSING ---
[facility] DC F/U Call: Discharge Date: 10.16.20 Discharge Diagnosis: Respiratory insufficiency (Acute), Community acquired pneumonia (Acute), Heart failure (Acute) Discharge Disposition: Home with Home O2- [employer] Lace/Strata: 07/26 Called patient listed cell phone number, verified corrected identity and VM left to return call. JC Mccloud
== END 2020-11-13 17:23 | disposition home or self-care (01) | DRG 193 ==
LOC: ED 19:42 → PCU 22:08
PROVIDERS: Family Medicine; Admitting Provider Hospitalist; Emergency Provider Emergency Medicine; PCP Family Medicine; Visit Provider Student in an Organized Health Care Education/Training Program
DX: J18.9 Pneumonia, unspecified organism (principal); J96.01 Acute respiratory failure with hypoxia; I50.33 Acute on chronic diastolic (congestive) heart failure; I48.11 Longstanding persistent atrial fibrillation; R04.2 Hemoptysis; I11.0 Hypertensive heart disease with heart failure; E66.9 Obesity, unspecified; I49.1 Atrial premature depolarization; E78.00 Pure hypercholesterolemia, unspecified; E78.5 Hyperlipidemia, unspecified; R79.1 Abnormal coagulation profile; E87.6 Hypokalemia; G47.33 Obstructive sleep apnea (adult) (pediatric); I36.1 Nonrheumatic tricuspid (valve) insufficiency; I25.119 Atherosclerotic heart disease of native coronary artery with unspecified angina pectoris; I27.21 Secondary pulmonary arterial hypertension; I35.2 Nonrheumatic aortic (valve) stenosis with insufficiency; I34.0 Nonrheumatic mitral (valve) insufficiency; Z87.19 Personal history of other diseases of the digestive system; Z95.2 Presence of prosthetic heart valve; Z95.1 Presence of aortocoronary bypass graft; Z83.3 Family history of diabetes mellitus; Z87.891 Personal history of nicotine dependence; Z79.899 Other long term (current) drug therapy; Z79.01 Long term (current) use of anticoagulants; Z68.30 Body mass index [BMI] 30.0-30.9, adult
CPT/HCPCS: 36415; 71045; 80048; 80053; 83605; 83735; 83880; 84484; 85025; 85610; 87040; 87070; 87205; 87426; 87449; 87633; 93005; 93306; 94002; 94003; 94640; 94762; 97110; 97162; 97166; 97530; 97535; 99284; J7040; Q9957; A4216; C8929; J1940

== ENCOUNTER 2020-11-19 13:07 | Outpatient (RCR) | payer MEDICARE, SELFPAY ==
[2020-04-03 13:34] VITALS: BMI 27.9
[2020-11-08 23:31] VITALS: BMI 29.6
[2020-11-19 13:16] LABS: INR Fingerstick 2.4
== END 2020-11-19 18:00 | disposition home or self-care (01) ==
LOC: LAB 13:07
PROVIDERS: Family Provider Family Medicine; PCP Family Medicine; Referring Provider Internal Medicine Cardiovascular Disease; Visit Provider Internal Medicine Cardiovascular Disease
DX: I48.11 Longstanding persistent atrial fibrillation (principal); Z79.01 Long term (current) use of anticoagulants
CPT/HCPCS: 36416; 85610

== ENCOUNTER 2020-12-17 09:52 | Outpatient (RCR) | payer MEDICARE, SELFPAY ==
[2020-11-08 23:31] VITALS: BMI 29.6
[2020-12-17 12:25] LABS: Hematocrit 43.3 % (40-54); Hemoglobin 13.9 g/dL (13.0-16.5); Mean Corp Hgb Conc 32.1 g/dL (32-36); Mean Corpuscular Hgb 29.5 pg (27.0-32.0); Mean Corpuscular Volume 91.9 fL (80-94); Mean Platelet Vol. 9.8 fl (6.2-12.0); Platelet Count 279 K/mm3 (150-450); RBC Distribution Width CV 13.7 % (11.6-14.6); RBC Distribution Width SD 46.7 fl (35.1-43.9); Red Blood Count 4.71 M/mm3 (4.6-6.2)
[2020-12-17 12:30] LABS: International Normalized Ratio 1.9; Prothrombin Time (Protime)PT. 21.1 SECONDS (11.7-14.9)
[2020-12-17 12:44] LABS: BNP,B-Type NATRIURETIC PEPTIDE 89.3 pg/mL (0-100)
[2020-12-17 13:24] LABS: Anion Gap 11 (5-15); BUN 17 mg/dL (7-18); BUN/Creat Ratio 15.5 RATIO (10-20); Calcium,Total 9.4 mg/dL (8.5-10.1); Chloride 99 mmol/L (98-107); EST Glomerular Filtration Rate 68 mL/min (>60); Est Glom Filt Rate - Afr Amer 82 mL/min (>60); Glucose 124 mg/dL (74-106); Potassium 3.2 mmol/L (3.5-5.1); Sodium Level 139 mmol/L (136-145)
== END 2020-12-17 18:00 | disposition home or self-care (01) ==
LOC: LAB 09:52
PROVIDERS: Family Provider Family Medicine; PCP Family Medicine; Referring Provider Internal Medicine Cardiovascular Disease; Visit Provider Internal Medicine Cardiovascular Disease
DX: I48.11 Longstanding persistent atrial fibrillation (principal); Z79.01 Long term (current) use of anticoagulants; I50.9 Heart failure, unspecified
CPT/HCPCS: 36415; 80048; 83880; 85027; 85610

== ENCOUNTER 2021-01-18 15:37 | Outpatient (RCR) | payer MEDICARE, SELFPAY ==
[2020-11-08 23:31] VITALS: BMI 29.6
[2021-01-18 16:21] LABS: International Normalized Ratio 2.6; Prothrombin Time (Protime)PT. 27.4 SECONDS (11.7-14.9)
== END 2021-01-18 18:00 | disposition home or self-care (01) ==
LOC: LAB 15:37
PROVIDERS: Family Provider Family Medicine; PCP Family Medicine; Referring Provider Internal Medicine Cardiovascular Disease; Visit Provider Internal Medicine Cardiovascular Disease
DX: I48.11 Longstanding persistent atrial fibrillation (principal); Z79.01 Long term (current) use of anticoagulants
CPT/HCPCS: 36415; 85610

== ENCOUNTER 2021-02-18 11:09 | Outpatient (RCR) | payer MEDICARE, SELFPAY ==
[2020-11-08 23:31] VITALS: BMI 29.6
[2021-02-18 11:52] LABS: International Normalized Ratio 2.6; Prothrombin Time (Protime)PT. 27.3 SECONDS (11.7-14.9)
[2021-02-18 12:33] LABS: Anion Gap 7 (5-15); BUN 19 mg/dL (7-18); BUN/Creat Ratio 16.7 RATIO (10-20); Calcium,Total 9.2 mg/dL (8.5-10.1); Chloride 104 mmol/L (98-107); Creatinine, Serum 1.14 mg/dL (0.70-1.30); EST Glomerular Filtration Rate 65 mL/min (>60); Est Glom Filt Rate - Afr Amer 79 mL/min (>60); Glucose 116 mg/dL (74-106); Potassium 3.5 mmol/L (3.5-5.1); Sodium Level 138 mmol/L (136-145)
== END 2021-02-18 18:00 | disposition home or self-care (01) ==
LOC: LAB 11:09
PROVIDERS: Family Provider Family Medicine; PCP Family Medicine; Referring Provider Internal Medicine Cardiovascular Disease; Visit Provider Internal Medicine Cardiovascular Disease
DX: I48.11 Longstanding persistent atrial fibrillation (principal); Z79.01 Long term (current) use of anticoagulants; E87.6 Hypokalemia
CPT/HCPCS: 36415; 80048; 85610

== ENCOUNTER 2021-04-15 13:44 | Outpatient (RCR) | payer MEDICARE, SELFPAY ==
[2020-11-08 23:31] VITALS: BMI 29.6
[2021-03-29 10:55] LABS: INR Fingerstick 3.5; Prothrombin Time Fingerstick 37.8 SEC (11.9-14.4)
[2021-04-15 14:01] LABS: INR Fingerstick 4.1; Prothrombin Time Fingerstick 44.5 SEC (11.9-14.4)
[2021-04-15 15:26] LABS: International Normalized Ratio 3.6; Prothrombin Time (Protime)PT. 35.2 SECONDS (11.7-14.9)
== END 2021-04-15 18:00 | disposition home or self-care (01) ==
LOC: LAB 13:44
PROVIDERS: Family Provider Family Medicine; PCP Family Medicine; Referring Provider Internal Medicine Cardiovascular Disease; Visit Provider Internal Medicine Cardiovascular Disease
DX: I48.11 Longstanding persistent atrial fibrillation (principal); Z79.01 Long term (current) use of anticoagulants
CPT/HCPCS: 36415; 36416; 85610

== ENCOUNTER 2021-04-26 15:08 | Outpatient (RCR) | payer MEDICARE, SELFPAY ==
[2021-04-24 01:11] VITALS: BMI 29.6
[2021-04-26 15:31] LABS: INR Fingerstick 2.9; Prothrombin Time Fingerstick 32.5 SEC (11.9-14.4)
== END 2021-04-26 18:00 | disposition home or self-care (01) ==
LOC: LAB 15:08
PROVIDERS: Family Provider Family Medicine; PCP Family Medicine; Referring Provider Internal Medicine Cardiovascular Disease; Visit Provider Internal Medicine Cardiovascular Disease
DX: I48.11 Longstanding persistent atrial fibrillation (principal); Z79.01 Long term (current) use of anticoagulants
CPT/HCPCS: 36416; 85610

== ENCOUNTER → 2021-05-07 14:34 | Outpatient (CLI) | payer MEDICARE, SELFPAY ==
--- NOTE | 2021-05-07 14:35 | RAD_ITS ---
STUDY: X-RAY - LUMBAR SPINE REASON FOR EXAM: Male, 85 years old. Low back pain, weakness TECHNIQUE: 5 view(s) of the lumbar spine were obtained. COMPARISON: None FINDINGS: Normal lumbar lordosis. There is a mild dextroscoliosis of the lumbar spine. There is a normal alignment of the vertebrae from L1 to L4. There is a grade 1 spondylolisthesis at L4-5. There is multilevel endplate spondylosis of the lumbar vertebrae. There is multi-level degenerative disc disease with multi-level disc space narrowing. There is no demonstrated fracture. There is atherosclerotic calcification of the abdominal aorta without a demonstrated aneurysm. 5 mm calcification overlying the left renal shadow. RAD/L/S Spine Min 4 Views IMPRESSION: Degenerative changes of the spine, as detailed above. No acute findings Grade 1 spondylolisthesis at L4-5 Mild dextroscoliosis Likely left nephrolithiasis Electronically Signed: Waldo Banda MD at 10:53 EDT , Service support ,
== END ==
PROVIDERS: PCP Family Medicine; Referring Provider Family Medicine; Visit Provider Family Medicine
DX: M62.81 Muscle weakness (generalized) (principal)
CPT/HCPCS: 72110

== ENCOUNTER 2021-07-10 12:52 | Outpatient (RCR) | payer MEDICARE, SELFPAY ==
[2021-05-24 00:42] VITALS: BMI 29.6
[2021-07-10 13:10] LABS: INR Fingerstick 3.1; Prothrombin Time Fingerstick 34.2 SEC (11.9-14.4)
== END 2021-07-23 18:00 | disposition home or self-care (01) ==
LOC: LAB 12:52
PROVIDERS: Family Provider Family Medicine; PCP Family Medicine; Referring Provider Internal Medicine Cardiovascular Disease; Visit Provider Internal Medicine Cardiovascular Disease
DX: I48.11 Longstanding persistent atrial fibrillation (principal); Z79.01 Long term (current) use of anticoagulants
CPT/HCPCS: 36416; 85610

== ENCOUNTER 2021-08-06 13:02 | Outpatient (RCR) | payer MEDICARE, SELFPAY ==
[2021-07-24 03:54] VITALS: BMI 29.6
[2021-08-06 14:12] LABS: Hematocrit 43.7 % (40-54); Hemoglobin 14.5 g/dL (13.0-16.5); Mean Corp Hgb Conc 33.2 g/dL (32-36); Mean Corpuscular Hgb 30.1 pg (27.0-32.0); Mean Corpuscular Volume 90.7 fL (80-94); Mean Platelet Vol. 9.9 fl (6.2-12.0); Platelet Count 263 K/mm3 (150-450); RBC Distribution Width CV 13.6 % (11.6-14.6); RBC Distribution Width SD 45.2 fl (35.1-43.9); Red Blood Count 4.82 M/mm3 (4.6-6.2); White Blood Count 11.2 K/mm3 (4.4-11.0)
[2021-08-06 14:19] LABS: International Normalized Ratio 2.7; Prothrombin Time (Protime)PT. 27.4 SECONDS (11.7-14.9)
[2021-08-06 14:35] LABS: BNP,B-Type NATRIURETIC PEPTIDE 82.1 pg/mL (0-100)
[2021-08-06 14:43] LABS: ALB/GLOB Ratio 1.1 RATIO (0.9-2.4); AST(SGOT) 36 U/L (15-37); Alanine Aminotransfer ALT/SGPT 36 U/L (16-61); Alkaline Phosphatase 87 U/L (45-117); Anion Gap 10 (5-15); BUN 20 mg/dL (7-18); Calcium,Total 8.7 mg/dL (8.5-10.1); Chloride 102 mmol/L (98-107); Cholesterol 182 mg/dL (200); Creatinine, Serum 1.11 mg/dL (0.70-1.30); EST Glomerular Filtration Rate 67 mL/min (>60); Est Glom Filt Rate - Afr Amer 81 mL/min (>60); Globulin 3.8 g/dL (2.2-4.2); Glucose 208 mg/dL (74-106); High Density Lipoprotein 42 mg/dL; Potassium 3.2 mmol/L (3.5-5.1); Protein, Total 7.8 g/dL (6.4-8.2); Sodium Level 138 mmol/L (136-145); Thyroid Stim Hormone (TSH) 1.61 uIU/mL (0.358-3.74); Triglycerides 252 mg/dL; Very Low Density Lipoprotein 50 mg/dL (5-40)
== END 2021-08-24 18:00 | disposition home or self-care (01) ==
LOC: LAB 13:02
PROVIDERS: Family Provider Family Medicine; PCP Family Medicine; Referring Provider Internal Medicine Cardiovascular Disease; Visit Provider Internal Medicine Cardiovascular Disease
DX: I48.11 Longstanding persistent atrial fibrillation (principal); R73.09 Other abnormal glucose; I50.32 Chronic diastolic (congestive) heart failure; Z79.01 Long term (current) use of anticoagulants
CPT/HCPCS: 36415; 80053; 80061; 83880; 84443; 85027; 85610

== ENCOUNTER → 2021-08-08 12:12 | Outpatient (CLI) | payer MEDICARE, SELFPAY ==
[2021-08-08 14:29] LABS: Hemoglobin A1c 6.3 % (3.8-5.6)
== END ==
PROVIDERS: PCP Family Medicine; Referring Provider Family Medicine; Visit Provider Family Medicine
DX: R73.9 Hyperglycemia, unspecified (principal)
CPT/HCPCS: 36415; 83036

== ENCOUNTER 2022-01-21 10:49 | Outpatient (RCR) | payer MEDICARE, SELFPAY ==
[2021-08-26 02:44] VITALS: BMI 29.6
[2022-01-03 14:15] LABS: INR Fingerstick 1.8; Prothrombin Time Fingerstick 21.9 SEC (11.7-14.9)
[2022-01-03 15:06] LABS: Prothrombin Time (Protime)PT. 22.4 SECONDS (11.7-14.9)
[2022-01-13 09:00] LABS: INR Fingerstick 1.5; Prothrombin Time Fingerstick 18.3 SEC (11.7-14.9)
[2022-01-13 09:22] LABS: International Normalized Ratio 1.4; Prothrombin Time (Protime)PT. 17.2 SECONDS (11.7-14.9)
[2022-01-23 13:40] LABS: INR Fingerstick 2.2; Prothrombin Time Fingerstick 25.5 SEC (11.7-14.9)
== END 2022-01-21 18:00 | disposition home or self-care (01) ==
LOC: LAB 10:49
PROVIDERS: Physician Assistant Medical; Family Provider Family Medicine; PCP Family Medicine; Referring Provider Internal Medicine Cardiovascular Disease; Visit Provider Internal Medicine Cardiovascular Disease
DX: I48.11 Longstanding persistent atrial fibrillation (principal); Z95.2 Presence of prosthetic heart valve; Z79.01 Long term (current) use of anticoagulants
CPT/HCPCS: 36415; 36416; 85610

== ENCOUNTER → 2022-02-07 | Outpatient (CLI) | payer MEDICARE, SELFPAY ==
[2022-02-07 12:13] LABS: Uric Acid 7.6 mg/dL (3.5-7.2)
== END | disposition home or self-care (01) ==
LOC: MFPLAB 10:17
PROVIDERS: PCP Family Medicine; Referring Provider Family Medicine; Visit Provider Family Medicine
DX: M10.9 Gout, unspecified (principal)
CPT/HCPCS: 36415; 84550

== ENCOUNTER 2022-02-17 14:29 | Outpatient (RCR) | payer MEDICARE, SELFPAY ==
[2022-01-21 21:33] VITALS: BMI 29.6
[2022-02-03 10:51] LABS: INR Fingerstick 3.2; Prothrombin Time Fingerstick 36.3 SEC (11.7-14.9)
[2022-02-17 15:01] LABS: INR Fingerstick 2.3; Prothrombin Time Fingerstick 27.1 SEC (11.7-14.9)
== END 2022-02-17 23:59 | disposition home or self-care (01) ==
LOC: LAB 14:29
PROVIDERS: Family Provider Family Medicine; PCP Family Medicine; Referring Provider Internal Medicine Cardiovascular Disease; Visit Provider Internal Medicine Cardiovascular Disease
DX: I48.11 Longstanding persistent atrial fibrillation (principal); Z95.2 Presence of prosthetic heart valve; Z79.01 Long term (current) use of anticoagulants
CPT/HCPCS: 36416; 85610

== ENCOUNTER → 2022-02-18 | Outpatient (CLI) | payer MEDICARE, SELFPAY ==
[2022-02-18 15:23] LABS: Hematocrit 46.4 % (40-54); Hemoglobin 15.8 g/dL (13.0-16.5); Mean Corp Hgb Conc 34.1 g/dL (32-36); Mean Corpuscular Hgb 30.9 pg (27.0-32.0); Mean Corpuscular Volume 90.6 fL (80-94); Mean Platelet Vol. 9.6 fl (6.2-12.0); Platelet Count 247 K/mm3 (150-450); RBC Distribution Width CV 14.6 % (11.6-14.6); RBC Distribution Width SD 48.8 fl (35.1-43.9); Red Blood Count 5.12 M/mm3 (4.6-6.2); White Blood Count 12.6 K/mm3 (4.4-11.0)
[2022-02-18 15:58] LABS: Anion Gap 10 (5-15); BUN 28 mg/dL (7-18); BUN/Creat Ratio 24.1 RATIO (10-20); Calcium,Total 9.1 mg/dL (8.5-10.1); Chloride 98 mmol/L (98-107); Cholesterol 222 mg/dL (200); Creatinine, Serum 1.16 mg/dL (0.70-1.30); EST Glomerular Filtration Rate 64 mL/min (>60); Est Glom Filt Rate - Afr Amer 77 mL/min (>60); Glucose 178 mg/dL (74-106); High Density Lipoprotein 51 mg/dL; Potassium 2.8 mmol/L (3.5-5.1); Sodium Level 139 mmol/L (136-145); Thyroid Stim Hormone (TSH) 2.25 uIU/mL (0.358-3.74); Triglycerides 353 mg/dL; Very Low Density Lipoprotein 71 mg/dL (5-40)
[2022-02-18 16:58] LABS: BNP,B-Type NATRIURETIC PEPTIDE 80.9 pg/mL (0-100)
== END | disposition home or self-care (01) ==
LOC: MFPLAB 14:13
PROVIDERS: PCP Family Medicine; Visit Provider Family Medicine
DX: D72.829 Elevated white blood cell count, unspecified (principal); I50.9 Heart failure, unspecified
CPT/HCPCS: 36415; 80048; 80061; 83880; 84443; 85007; 85027

== ENCOUNTER 2022-03-21 10:22 | Outpatient (RCR) | payer MEDICARE, SELFPAY ==
[2022-02-21 07:57] VITALS: BMI 29.6
[2022-03-04 11:16] LABS: INR Fingerstick 1.9; Prothrombin Time Fingerstick 23.1 SEC (11.7-14.9)
[2022-03-11 11:00] LABS: INR Fingerstick 2.2; Prothrombin Time Fingerstick 25.3 SEC (11.7-14.9)
[2022-03-21 10:30] LABS: INR Fingerstick 2.4; Prothrombin Time Fingerstick 27.4 SEC (11.7-14.9)
== END 2022-03-23 03:16 | disposition home or self-care (01) ==
LOC: LAB 10:22
PROVIDERS: Family Provider Family Medicine; PCP Family Medicine; Referring Provider Internal Medicine Cardiovascular Disease; Visit Provider Internal Medicine Cardiovascular Disease
DX: I48.11 Longstanding persistent atrial fibrillation (principal); Z95.2 Presence of prosthetic heart valve; Z79.01 Long term (current) use of anticoagulants
CPT/HCPCS: 36416; 85610

== ENCOUNTER 2022-04-08 13:42 | Outpatient (RCR) | payer MEDICARE, SELFPAY ==
[2022-03-23 03:17] VITALS: BMI 29.6
[2022-04-08 13:51] LABS: INR Fingerstick 2.9; Prothrombin Time Fingerstick 32.7 SEC (11.7-14.9)
== END 2022-04-08 18:00 | disposition home or self-care (01) ==
LOC: LAB 13:42
PROVIDERS: Family Provider Family Medicine; PCP Family Medicine; Referring Provider Internal Medicine Cardiovascular Disease; Visit Provider Internal Medicine Cardiovascular Disease
DX: I48.11 Longstanding persistent atrial fibrillation (principal); Z95.2 Presence of prosthetic heart valve; Z79.01 Long term (current) use of anticoagulants
CPT/HCPCS: 36416; 85610

== ENCOUNTER 2022-05-13 09:35 | Outpatient (RCR) | payer MEDICARE, SELFPAY ==
[2022-04-24 00:33] VITALS: BMI 29.6
[2022-05-05 09:46] LABS: INR Fingerstick 3.5; Prothrombin Time Fingerstick 39.2 SEC (11.7-14.9)
[2022-05-13 09:46] LABS: INR Fingerstick 2.8; Prothrombin Time Fingerstick 32.5 SEC (11.7-14.9)
== END 2022-05-13 18:00 | disposition home or self-care (01) ==
LOC: LAB 09:35
PROVIDERS: Family Provider Family Medicine; PCP Family Medicine; Referring Provider Internal Medicine Cardiovascular Disease; Visit Provider Internal Medicine Cardiovascular Disease
DX: I48.11 Longstanding persistent atrial fibrillation (principal); Z95.2 Presence of prosthetic heart valve; Z79.01 Long term (current) use of anticoagulants
CPT/HCPCS: 36416; 85610

== ENCOUNTER 2022-07-21 18:27 | Emergency (ER) | payer MEDICARE, SELFPAY ==
[2022-07-21] VITALS (10 sets, daily range): BP systolic 117–150; BP diastolic 50–91; PULSE 48–59; RESP 14–20; TEMP 36.3; O2SAT 88–95; BMI 29.0
--- NOTE | 2022-07-21 18:28 | CT_ITS ---
EXAMINATION : Head CT w/out contrast HISTORY : Neuro deficit, acute, stroke suspected COMPARISON : 02/08/2019. TECHNIQUE : Multiple contiguous axial images were obtained from the skull base to the vertex without intravenous contrast. A radiation dose optimization technique was used for this scan. FINDINGS : There is no evidence for mass effect, or midline shift. There is a questionable trace amount of subdural hemorrhage in the midline to the left of the falx (image 32, series 2). This is new when compared to prior CT on 02/08/2019. There are periventricular white matter changes consistent with chronic microvascular ischemic disease. There is sulcal widening and ventricular enlargement consistent with cerebral atrophy. There is normal saunders-white differentiation, without CT evidence of acute ischemia or infarct. 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 The skull base and calvarium are unremarkable. The orbits are unremarkable. The paranasal sinuses are clear. The mastoid air cells are well-aerated. The soft tissues are unremarkable. CT/STROKE Brain/Head without Cont IMPRESSION: Questionable trace left parafalcine subdural hemorrhage. 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 Chronic involutional and ischemic changes of the brain. N.B. : The above Results were Read Back by Michael Weiss MD to Dr. Bandar Kramer MD, and understanding confirmed on 07/21/2022 18:51:14 (ET). Electronically Signed: Michael Weiss MD at 18:58 EST ,
--- NOTE | 2022-07-21 18:28 | EKG12_ITS ---
Test Reason : DYSRHYTHMIA Blood Pressure : / mmHG Vent. Rate : 049 BPM Atrial Rate : 241 BPM P-R Int : 000 ms QRS Dur : 138 ms QT Int : 532 ms P-R-T Axes : 000 -62 -17 degrees QTc Int : 480 ms Atrial fibrillation Left axis deviation Right bundle branch block Inferior infarct , age undetermined , cannot be excluded Abnormal ECG Confirmed by GAL WAGONER, FARZANA ([id number]), editor managing director DEMETRI BRIDGES ([id number]) on 07/22/2022 9:20:14 AM Referred By: Confirmed By:FARZANA SANTO MD
--- NOTE | 2022-07-21 18:29 | CT_ITS ---
We are attempting to reach an attending provider to discuss findings. An addendum with communication details will be sent when the communication is complete. STUDY: CTA HEAD AND NECK WITH CONTRAST REASON FOR EXAM: Male, 86 years old. Neuro deficit. Acute stroke suspected. RADIATION DOSAGE (If Supplied By Facility): CTDIvol = ( 31.06 ) mGy, DLP = ( 810.62 ) mGycm TECHNIQUE: CT angiography was performed with a multi-detector CT scanner. Data acquisition was obtained from the skull base through the vertex following intravenous administration of IV 100mL Isovue-370. MIP images were reconstructed from the axial data set. Post-processing of the angiographic images was performed, with multiplanar reformation and 3D reconstruction. Individualized dose optimization techniques were used for this CT. COMPARISON: CT of the head, July 21, 2022. FINDINGS: Normal bilateral petrous carotid arteries. There is calcified plaque formation of the right cavernous carotid artery, without a cross-sectional luminal stenosis. There is calcified plaque formation of the left cavernous carotid artery, without a cross-sectional luminal stenosis. Normal right A1 segments of the anterior cerebral artery. Normal left A1 segments of the anterior cerebral artery. There is non-visualization of the anterior communicating artery (ACOM). Normal bilateral A2 segments of the anterior cerebral arteries. Normal right M1 and M2 segments of the middle cerebral arteries, with a normal M1 bifurcation. Normal left M1 and M2 segments of the middle cerebral arteries, with a normal M1 bifurcation. Normal right posterior communicating artery (PCOM). There is non-visualization of the left posterior communicating artery (PCOM). Normal bilateral vertebral arteries. Normal basilar artery with a normal basilar bifurcation. The visualized bilateral superior cerebellar (SCA) arteries are normal. Normal bilateral P1, P2 and visualized P3 segments of the posterior cerebral arteries. There is no demonstrated aneurysm of the [place]. There is no demonstrated abnormality of the visualized brain. AORTIC ARCH: Atherosclerotic changes of the aortic arch without dissection or aneurysm. Normal origins of the brachiocephalic, left common carotid, and left subclavian arteries. RIGHT CAROTID ARTERIES: Normal right common carotid artery (CCA). Atherosclerotic changes at the carotid bifurcation without stenosis. Normal origin of the right internal carotid (ICA) artery without a hemodynamically significant stenosis. Normal visualized cervical portion of the right internal carotid artery. Normal origin of the right external carotid artery (ECA). LEFT CAROTID ARTERIES: Normal left common carotid artery (CCA). Atherosclerotic changes at the carotid bifurcation with mild narrowing. Normal origin of the left internal carotid (ICA) artery without a hemodynamically significant stenosis. Normal visualized cervical portion of the left internal carotid artery. Normal origin of the left external carotid artery (ECA). VERTEBRAL ARTERIES: Normal bilateral vertebral arteries. CT/STROKE CTA Head AND Neck W/Con IMPRESSION: 1. Hemodynamically insignificant atherosclerotic plaque at bilateral carotid bifurcations. 2. Hemodynamically insignificant atherosclerotic changes of bilateral carotid siphons. 3. Otherwise normal CTA of the head and neck. Electronically Signed: Telly Mancini DO at 18:55 [facility] ,
--- NOTE | 2022-07-21 18:42 | ED.VIS.STROK ---
HPI History of Present Illness Chief Complaint: Neuro S/Sx Detail of Chief Complaint: With balance and falling to the left and slurred speech Informant: patient, spouse/S.O. and EMS Onset/Context/Timing Onset: Today and Hours Context: Sudden Onset Timing: Continuous Quality and Location: Positive for Slurred Speech and Difficulty with Ambulation Onset: Initial response was 1715. Upon 's arrival she states 1730 Current Severity: Mild Maximum Severity: Mild Worsened by: Nothing Relieved by: Nothing Associated Symptoms Associated Symptoms: Negative for Headache, Nausea, Vomiting or Chest Pain Narrative Narrative: Patient is AN 86-year-old male with past history of pulmonary hypertension, aortic valve replacement, coronary disease, chronic diastolic heart failure, hypertension and hyperlipidemia. Review of records indicates patient is on long-term anticoagulant. This was initially not known. Patient is not a good informant. He is alert and oriented. He has difficulty answering some questions and there is problem with fluency and slight slurred speech. He was met in the ambulance bay. He is noted to have nystagmus. With complaints of problems with balance and nystagmus concern patient has a posterior circulatory stroke. I was informed at 1845 that states he fell asleep in a chair. She does not know what time he fell asleep. He apparently awoke with the symptoms. 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 Nonrheumatic mitral (valve) insufficiency Obstructive sleep apnea Pneumonia Secondary pulmonary arterial hypertension Snoring Home Medications magnesium oxide 400 mg (241.3 mg magnesium) tablet 400 mg PO BREAKFAST supplement 10/01/17 [History Last Taken 10/03/19] cholecalciferol (vitamin D3) 125 mcg (5,000 unit) capsule 125 mcg PO DAILY supplement 10/03/19 [History Last Taken 10/03/19] furosemide 40 mg tablet 80 mg PO BID water #360 tabs 06/05/20 [Rx Last Taken Unknown] potassium chloride 20 mEq tablet,extended release 20 meq PO DAILY 11/01/20 [History Last Taken Unknown] amlodipine 10 mg tablet 10 mg PO DAILY #90 tabs 04/08/21 [Rx Last Taken Unknown] warfarin 4 mg tablet 4 mg PO .COMPLEX #120 tabs 04/08/21 [Rx Last Taken Unknown] escitalopram oxalate 20 mg tablet 10 mg PO DAILY 02/04/22 [History Last Taken Unknown] pravastatin 80 mg tablet 80 mg PO DAILY cholesterol #90 tabs 03/27/22 [Rx Last Taken Unknown] allopurinol 100 mg tablet 100 mg PO PRN PRN Pain 07/21/22 [History Last Taken Unknown] ciclopirox 8 % topical solution topical 07/21/22 [History Last Taken Unknown] losartan 50 mg tablet 100 mg PO DAILY 07/21/22 [History Last Taken Unknown] Allergy/AdvReac Type Severity Reaction Status Date / Time No Known Allergies Allergy Verified 02/04/22 09:41 Family History (Updated 07/21/22 @ 18:[address] Sharyn Montalvo MD) Father , No hx of CAD Heart disease Mother , age 79 Diabetes Surgical History H/O aortic valve replacement (04/30/01) H/O coronary artery bypass surgery (04/30/01) History of colonoscopy (02/10/19) History of esophagogastroduodenoscopy (02/10/19) History of radiofrequency ablation procedure for cardiac arrhythmia (12/26/14) History of transesophageal echocardiography (MT) (10/31/19) Social History (Updated 07/21/22 @ 18:[address] Sharyn Montalvo MD) household members: spouse Smoking Status: Former smoker how long ago did patient quit smoking: Quit remotely. alcohol intake: current alcohol intake frequency: 0-2 drinks per day details: 1 glass of wine per night. substance use type: does not use ROS ROS ED Review of Systems ROS Unobtainable: due to mental status Constitutional Constitutional ED: Denies chills, fever(s) or subjective Eyes Eyes: Denies blurry vision, change in vision or diplopia ENT ENT ED: Denies ear pain or sore throat Cardiovascular Cardiovascular: Denies chest pain, palpitations or racing heartbeat Respiratory/Chest Respiratory/Chest: Denies cough, dyspnea or dyspnea on exertion Gastrointestinal Gastrointestinal: Reports nausea; Denies abdominal pain or vomiting Musculoskeletal Musculoskeletal: Denies arthralgias, back pain, myalgias or neck pain Integumentary Denies Abrasions or rash Neurologic Neurologic: Denies headache(s), paresthesias or weakness Psychiatric Psychiatric: Denies anxiety or depression Hematologic/Lymphatic Hematologic/Lymphatic: Denies easy bleeding or easy bruising EXAM Physical Exam Const Vital Signs: 07/21/22 18:28 07/21/22 18:44 07/21/22 18:50 Temperature 97.3 F L 97.3 F L Temperature Source Temporal Temporal Pulse Rate 50 L 58 L Respiratory Rate 16 Blood Pressure 141/63 H Blood Pressure Mean 89 Pulse Ox 88 94 Oxygen Delivery Method Room Air Nasal Cannula Oxygen Flow Rate (L/min) 2 07/21/22 18:51 07/21/22 19:17 07/21/22 19:18 Temperature Temperature Source Pulse Rate 53 L Respiratory Rate 15 Blood Pressure 150/91 H Blood Pressure Mean 110 Pulse Ox 94 95 Oxygen Delivery Method Nasal Cannula Nasal Cannula Nasal Cannula Oxygen Flow Rate (L/min) 2 2 2 Positive well nourished and well developed; Negative for obese, cachectic, contractures or unkempt General Appearance ED: well developed and NAD; Negative for unkempt, cachectic or contractures Nutritional Appearance: Negative for cachectic or obese HEENT Reports moist mucous membranes atraumatic Nose: other Other Details: Normocephalic. Nares patent. Teeth intact. Mucosa moist. No deviation tongue or protrusion. Uvula midline. Eyes PERRL and EOMs intact bilaterally Eyes Narrative: Patient does have nystagmus that is horizontal. General Eye ED: Negative for pale conjunctiva or scleral icterus Neck no lymphadenopathy, supple and no JVD Chest Wall inspection of chest normal and palpation of chest normal Resp normal respiratory effort and clear to auscultation bilaterally Cardio no murmurs Rate: regular rate Rhythm: abnormal rhythm irregularly irregular Heart Sounds: S1 normal and S2 normal GI normal to inspection, nondistended, normoactive bowel sounds, soft to palpation, non-tender, non-distended and no masses Back/Spine no CVA tenderness Extremity Extremity Narrative: Venous stasis dermatitis with mild lymphedema of the lower extremities. He does have stigmata of peripheral arterial disease. General Extremety ED: Yes edema General Extremity: edema Neuro oriented x3, No CN's II-XII intact bilaterally and no sensory deficits noted Ed Coma Scale: document GCS findings Spontaneous Obeys Commands Oriented 15 Sensorium / Orientation: oriented to person, oriented to place and oriented to time Psych mental status grossly normal Appearance: Negative for unkempt Skin no wounds General Skin Exam: Negative for jaundice Lesions: no lesions Rashes: no rashes NIHSS NIHSS Initial: 1a Level of Consciousness: 0 1b LOC Questions (Score 2 if aphasic/stupor): 0 1c LOC Commands (Only score 1st attempt): 0 2 Best Gaze (If aphasic, use reflexive mvmts.): 0 3 Visual: 0 4 Facial Palsy: 1 5 Motor Arm Right (UN = amputation/fusion): 0 5 Motor Arm Left: 0 6 Motor Leg Right: 0 6 Motor Leg Left: 0 7 Limb ataxia (Only + if out of proportion): 1 8 Sensory (Aphasia/stupor=0 or 1, coma=2): 0 9 Best Language: 1 10 Dysarthria (mute, coma=2, intubated=UN): 1 11 Extinction and Inattention (only scored if +): 0 Total Score: 4 MDM MDM MDM Narrative Medical decision making narrative: She presents with strokelike symptoms. Initially onset was believed to be between 1715 and 1730. states he fell asleep in the chair. She does not know what time he fell asleep. Total time is truly unknown. I received a call back from Dr. Mcnair for the radiologist who read the unenhanced scan of the head. When compared to prior there is concern on coronal cuts 42 and 43 and axial cuts 30 and 31 a small subdural hematoma left of the falx. Spoke to again regarding when he stumbled if she witnessed this. She states he hit his head on a table. In light of his new finding of the small subdural hematoma patient will need transfer. He and his states he has been at [facility] in the past. We will transfer to [facility]. Patient is on Coumadin because he is a prostatic aortic valve. With Akanksha at the neuro ICU nurse practitioner and Dr. Chris Eastman. He requested Kcentra. Kcentra and vitamin K was ordered. Patient is a critical care transport to [facility]. Since ground unit will be 3 hours he will be transported by helicopter. Case was also discussed with the neurologist at [facility]. The ER physician Dr. Kowalski who was covering for trauma was notified as well. Lab Data Attestation: I reviewed the patient's lab results. Labs: Laboratory Results - last 24 hr 07/21/22 07/21/22 07/21/22 18:41 18:41 18:41 WBC 10.8 RBC 4.20 L Hgb 13.5 Hct 39.6 L MCV 94.3 H MCH 32.1 H MCHC 34.1 RDW Std Deviation 48.6 H RDW Coeff of Swapnil 14.3 Plt Count 208 MPV 9.1 Immature Gran % (Auto) 0.600 Neut % (Auto) 58.7 Lymph % (Auto) 29.1 [place] % (Auto) 9.8 Eos % (Auto) 1.1 Baso % (Auto) 0.7 Absolute Neuts (auto) 6.3 Absolute Lymphs (auto) 3.14 Nucleated RBC % 0 PT 29.3 H INR 2.8 APTT 41.4 H Sodium 140 Potassium 3.6 Chloride 106 Carbon Dioxide 27.0 Anion Gap 7 BUN 20 H Creatinine 0.95 Estim Creat Clear Calc 57.88 Est GFR (MDRD) Af Amer 97 Est GFR (MDRD) Non-Af 80 BUN/Creatinine Ratio 21.1 H Glucose 95 Calcium 8.4 L Troponin I High Sens 15 Portable chest x-ray obtained. There is no evidence of metallic prosthetic valve. In light of no prosthetic metallic valve patient received Kcentra and vitamin K after discussion with trauma attending at [facility], neurologist at [facility] and neurosurgeon at [facility]. Radiography Diagnostic Testing: Clinical Impression(s) from Imaging Studies Brain CT 07/21/22 18:28 IMPRESSION: Questionable trace left parafalcine subdural hemorrhage. 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 Chronic involutional and ischemic changes of the brain. N.B. : The above Results were Read Back by Michael Weiss MD to Dr. Bandar Kramer MD, and understanding confirmed on 07/21/2022 18:51:14 (ET). Electronically Signed: Michael Weiss MD at 18:58 EST , ADDENDUM: 07/21/22 190 IMPRESSION: Questionable trace left parafalcine subdural hemorrhage. 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 Chronic involutional and ischemic changes of the brain. N.B. : The above Results were Read Back by Michael Weiss MD to Dr. Bandar Kramer MD, and understanding confirmed on 07/21/2022 18:51:14 (ET). Electronically Signed: Michael Weiss MD at 18:58 EST , Head/Neck CTA 07/21/22 18:29 IMPRESSION: 1. Hemodynamically insignificant atherosclerotic plaque at bilateral carotid bifurcations. 2. Hemodynamically insignificant atherosclerotic changes of bilateral carotid siphons. 3. Otherwise normal CTA of the head and neck. Electronically Signed: Telly Mancini DO at 18:55 EST Reading Location ID and State: [employer] / [place] Tel [phone], Service support , ADDENDUM: 07/21/221903 IMPRESSION: 1. Hemodynamically insignificant atherosclerotic plaque at bilateral carotid bifurcations. 2. Hemodynamically insignificant atherosclerotic changes of bilateral carotid siphons. 3. Otherwise normal CTA of the head and neck. N.B. : The above Results were Read Back by Telly Mancini DO to Dr. Bandar Kramer MD, and understanding confirmed on 07/21/2022 18:57:36 (ET). Electronically Signed: Telly Mancini DO at 18:55 EST , EKG Initial EKG: Interpretation: Atrial Fibrillation (Ventricular rate is 49. QS duration 138 ms. Morphology is consistent with a right bundle branch block. QT intervals 532 ms. [place] is to the left. There is no acute ischemic changes noted.) Stroke Documentation Questions Stroke Team Activated: Yes Reviewed Inclusion/Exclusion criteria: Yes No contraindications for IV Alteplase (t-PA) administration.: No (There is concern for subdural hematoma) Critical Care Time Critical Care Time: Yes Critical care time (excluding procedures): 30-74 minutes (32), Including time spent: (History, physical, documentation, bedside care, review of prior records, discussion with , discussion with radiologist and neurologist), Discussing w/Patient &/or Family/Consulting Group Analyst, Discussing w/Consultants and Arranging Admission or Transfer Discharge Plan Triage Chief Complaint: Neuro S/Sx ED Provider: Bandar Kramer Dx/Rx/DC Orders Clinical Impression: Acute subdural hematoma, Hyperlipidemia, Anticoagulant long-term use, Essential (primary) hypertension, Longstanding persistent atrial fibrillation, 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 Prescriptions: No Action magnesium oxide 400 mg tablet 400 mg PO BREAKFAST potassium chloride 20 mEq tablet extended release 20 meq PO DAILY escitalopram oxalate 20 mg tablet 10 mg PO DAILY cholecalciferol (vitamin D3) 125 MCG capsule 125 mcg PO DAILY allopurinol 100 mg tablet 100 mg PO PRN PRN (Reason: Pain) Label Comments: TAKE 1 TABLET BY MOUTH ONCE DAILY ciclopirox 8 % solution TOPICAL losartan 50 mg tablet 100 mg PO DAILY furosemide 40 mg tablet 80 mg PO BID Qty: 360 3RF warfarin 4 mg tablet 4 mg PO .COMPLEX Qty: 120 3RF Protocol: Dose Management Condition: Thursday Dose/Route: 4 mg Instruction: 1 x 4 mg tablet Condition: Thursday Dose/Route: 6 mg Instruction: 1.5 x 4 mg tablets Condition: Thursday Dose/Route: 6 mg Instruction: 1.5 x 4 mg tablets Condition: Thursday Dose/Route: 6 mg Instruction: 1.5 x 4 mg tablets Condition: Dose/Route: 6 mg Instruction: 1.5 x 4 mg tablets Condition: Thursday Dose/Route: 6 mg Instruction: 1.5 x 4 mg tablets Condition: Thursday Dose/Route: 4 mg Instruction: 1 x 4 mg tablet Protocol Text: Adjustment Start Date: Thursday05/13/22 INR Value: 2.8 INR Date: 05/13/22 Recheck Date: 06/03/22 Rx Instructions: 4 mg (1 tablet) 6 days a week, 6 mg ( 1.5 tablets) one day a week or as directed for dose changes. amlodipine 10 mg tablet 10 mg PO DAILY Qty: 90 3RF pravastatin 80 mg tablet 80 mg PO DAILY Qty: 90 3RF Primary Care Provider: Fernando Cortez Referrals: Fernando Cortez MD [Primary Care Provider] - Disposition Disposition: Acute Care Hospital
[2022-07-21 18:47] LABS: Absolute Lymphocyte Count 3.14 X10^3/uL (0.83-4.51); Absolute Neutrophil Count 6.3 X10^3/uL (2.0-7.7); Basophil# 0.08 X10^3/uL; Basophil% 0.7 % (0-1); Eosinophil# 0.12 X10^3/uL; Eosinophils% 1.1 % (0-5); Hematocrit 39.6 % (40-54); Hemoglobin 13.5 g/dL (13.0-16.5); Lymphocyte # 3.14 X10^3/ul (0.83-4.51); Lymphocyte % 29.1 % (19-41); Mean Corp Hgb Conc 34.1 g/dL (32-36); Mean Corpuscular Hgb 32.1 pg (27.0-32.0); Mean Corpuscular Volume 94.3 fL (80-94); Mean Platelet Vol. 9.1 fl (6.2-12.0); Monocyte# 1.06 X10^3/uL; Monocyte% 9.8 % (0-10); NRBC Flagged by Analyzer 0 % (0-5); Neutrophil # 6.33 X10^3/uL (2.7-7.7); Neutrophil % 58.7 % (47-70); Platelet Count 208 K/mm3 (150-450); RBC Distribution Width CV 14.3 % (11.6-14.6); RBC Distribution Width SD 48.6 fl (35.1-43.9); White Blood Count 10.8 K/mm3 (4.4-11.0)
--- NOTE | 2022-07-21 18:52 | CM.ED ---
Addendum entered by Natasha Llamas 07/21/22 19:28: Patient is being transferred to [facility]. Patient's presented with a map of directions to [facility]. Patient's said that her friend is coming to the ED and will go with her to [facility]. No other issues or concerns voiced. Natasha BRYANT Original Note: SATINDER Note SW responded to Stroke Alert. Emotional support provided to patient's . SATINDER remains available if needs arise. Plan: SATINDER remains available Natasha BRYANT
[2022-07-21 18:55] LABS: International Normalized Ratio 2.8; Prothrombin Time (Protime)PT. 29.3 SECONDS (11.7-14.9)
[2022-07-21 18:56] LABS: Partial Thromboplast Time 41.4 Seconds (24.1-36.2)
--- NOTE | 2022-07-21 19:05 | RAD_ITS ---
INDICATION: Neuro deficit, acute, stroke suspected EXAMINATION/TECHNIQUE: X-RAY - XR Chest 1 View COMPARISON: 11/08/2020. FINDINGS: Emphysematous changes. Slight increased interstitial markings. Left basilar atelectasis. Sternal cerclage wires and vascular clips are present from a prior sternotomy and coronary artery bypass graft procedure (CABG). Tortuous and calcified thoracic aorta. The heart is borderline enlarged. No pleural effusion or pneumothorax. Degenerative changes of the thoracic spine. RAD/Chest 1 View IMPRESSION: Slight increase in interstitial markings could represent edema and/or infection. Chronic lung changes. Electronically Signed: Michael Weiss MD at 20:23 EST ,
[2022-07-21 19:06] LABS: Anion Gap 7 (5-15); BUN 20 mg/dL (7-18); BUN/Creat Ratio 21.1 RATIO (10-20); Calcium,Total 8.4 mg/dL (8.5-10.1); Chloride 106 mmol/L (98-107); Creatinine, Serum 0.95 mg/dL (0.70-1.30); EST Glomerular Filtration Rate 80 mL/min (>60); Est Glom Filt Rate - Afr Amer 97 mL/min (>60); Estimated Creatinine Clearance 57.88 ml/min; Glucose 95 mg/dL (74-106); Potassium 3.6 mmol/L (3.5-5.1); Sodium Level 140 mmol/L (136-145); Troponin-I HS 15 pg/mL (3.0-78.0)
--- NOTE | 2022-07-21 19:26 | ED.RN ---
PER DR REYES, MAINTAIN SBP <160, BP 150/91. NO LABETOLOL OR HYDRALAZINE NEEDED AT THIS TIME
--- NOTE | 2022-07-21 19:30 | ED.RN ---
CALLED PHARMACY FOR [facility], DR AMY BARKERS MEDICATON MARY
--- NOTE | 2022-07-21 19:40 | ED.RN ---
[facility] transport team updated on patient status and condition at this time
--- NOTE | 2022-07-21 19:53 | ED.RN ---
[facility] called out sourced to BERTHA sorenson 25 mins
== END 2022-07-21 20:34 | disposition short-term general hospital (02) ==
PROVIDERS: Emergency Provider Emergency Medicine; PCP Family Medicine; Visit Provider Emergency Medicine
DX: S06.5XAA Traumatic subdural hemorrhage with loss of consciousness status unknown, initial encounter (principal); I11.0 Hypertensive heart disease with heart failure; I50.32 Chronic diastolic (congestive) heart failure; I48.19 Other persistent atrial fibrillation; E78.5 Hyperlipidemia, unspecified; I25.10 Atherosclerotic heart disease of native coronary artery without angina pectoris; G47.33 Obstructive sleep apnea (adult) (pediatric); Z95.1 Presence of aortocoronary bypass graft; Z79.899 Other long term (current) drug therapy; Z79.01 Long term (current) use of anticoagulants; Z87.891 Personal history of nicotine dependence; X58.XXXA Exposure to other specified factors, initial encounter
CPT/HCPCS: 70450; 70496; 70498; 71045; 80048; 84484; 85025; 85610; 85730; 93005; 96365; 99285; J7168; Q9967; A4216; J3490

== ENCOUNTER 2022-10-02 11:00 | Outpatient (RCR) | payer MEDICARE, SELFPAY ==
--- NOTE | 2022-09-02 15:11 | HP.PTEVAL ---
Patient's Visit Information GEORGE MCCLAIN is a 86 year old M referred to Physical Therapy by Dr. Fernando Cortez MD with a diagnosis of Gait instability. Date of Evaluation: 09/02/22 Physical Therapist: Randal Noriega, PT, ATC - Visit Plan Frequency: 2-3x /Week Duration: 4-6 Weeks Plan: L LE strengthening, balance and proprio, gait training, nu step, HEP - Subjective Pt reports he started to notice decreased balance 2-3 months ago. Pt reports his steadiness has worsened since that time. Pt notes he has experienced several falls over the past 2-3 weeks. Pt reports he had to spend 6 days in the hospital 2 weeks ago after falling several times. Pt notes he had some CT scans which revealed a stroke had occurred. Pt reports this has lead him to having L LE weakness as a residual effect. Pt denies tingling or numbness in his LE's. Pt reports he has 2 steps into his house and notes he has to negotiate them very carefully. Pt reports his falls have become more recently. Pt has had 4 falls in the past 3 weeks. Pt has used an AD in the past, but has been told recently that he doesn't need one. Pt reports he is in no pain today. - Objective Neuro: B LE sensation is WNL to light touch. B patellar reflex 2/3. MMT: R LE is grossly 5/5 throughout, L LE is grossly 4/5 throughout. Gait: Pt is able to ambulate greater than 1000 feet without difficulty. FGA: 18/30 indicating mild balance deficit - Balance/Special Test Scores Functional Gait Assessment Score: 18 % Disability: 40.0000 Lower Extremity Functional Score: 18 - Goals Goal 1:: Increase L LE strength x 1 grade to aid with stair negotiation Goal Time Frame: 4-6 Weeks Goal 2:: Increase FGA score x 5 points to aid with future falls Goal Time Frame: 4-6 Weeks Goal 3:: I with HEP Goal Time Frame: 4-6 Weeks - Rehabilitation Potential Physical Therapy Diagnosis: Pt has L LE weakness, decreased balance, and a Hx of falls secondary to debilitation Rehabilitation Potential: Good - Anticipated Interventions Patient/Client Instruction: Educate patient on: Condition, Plan of Care For the Purpose of:: To improve self management Therapeutic Exercise to Include: Strength training, Endurance training, Balance training, Gait and locomotor training, Active ROM For the Purpose of:: To improve muscle performance and motor function, To increase tolerance to activity/condition/position, To improve balance Thank you for the opportunity to evaluate your patient. For Medicare and Medicare HMO plans, please review the plan of care and approve it. It will need to be FAXED BACK to us at [phone] for Medicare purposes. For Medicare only, by signing this I certify the plan of care. Please let me know if there are questions or concerns regarding this plan of care. Physician Signature: Date:
--- NOTE | 2022-10-02 12:27 | HP.PTDCSUM ---
It has been my pleasure to treat GEORGE MCCLAIN referred by Dr. Fernando Cortez MD, with the diagnosis of Gait instability for a total of 9 visit(s). Discharge Date: Please see the following information for a summary of their discharge status. Subjective: I feel like the only thing I lack right now is balance. I feel like I can continue with ex's at the [facility] for now LB Pain Intensity (Out of 10): 0 % Improvement: 50 Objective/Function: Pt is now I with gym routine. L LE MMT is 5/5 throughout with exception to L knee hip abduction and adduction which is 4+/5. FGA: 23/30 above average. Rx goals achieved Goal 1:: Increase L LE strength x 1 grade to aid with stair negotiation Goal Progress: Goal Met Goal 2:: Increase FGA score x 5 points to aid with future falls Goal Progress: Goal Met Goal 3:: I with HEP Goal Progress: Goal Met Plan: Discharge to [facility] If there are questions or concerns regarding this patient's physical therapy, please feel free to call me at [phone]. Thank you for the referral of this patient. Sincerely, Randal Noriega, PT, ATC Balance/Gait/Functional tests - Balance/Special Test Scores Functional Gait Assessment Score: 23 % Disability: 23.3400 Lower Extremity Functional Score: 68
== END 2022-10-02 13:58 | disposition home or self-care (01) ==
LOC: PT 11:00
PROVIDERS: PCP Family Medicine; Referring Provider Family Medicine; Visit Provider Family Medicine
DX: R29.6 Repeated falls (principal); I62.9 Nontraumatic intracranial hemorrhage, unspecified; Z91.81 History of falling
CPT/HCPCS: 97110; 97112; 97161; 97164

== ENCOUNTER → 2023-01-02 | Outpatient (CLI) | payer MEDICARE, SELFPAY ==
[2023-01-02 12:35] LABS: Absolute Lymphocyte Count 1.97 X10^3/uL (0.83-4.51); Absolute Neutrophil Count 6.8 X10^3/uL (2.0-7.7); Basophil# 0.09 X10^3/uL; Basophil% 0.9 % (0-1); Eosinophil# 0.14 X10^3/uL; Eosinophils% 1.4 % (0-5); Hematocrit 43.9 % (40-54); Hemoglobin 14.2 g/dL (13.0-16.5); Lymphocyte # 1.97 X10^3/ul (0.83-4.51); Lymphocyte % 19.7 % (19-41); Mean Corp Hgb Conc 32.3 g/dL (32-36); Mean Corpuscular Hgb 31.3 pg (27.0-32.0); Mean Corpuscular Volume 96.9 fL (80-94); Mean Platelet Vol. 9.9 fl (6.2-12.0); Monocyte# 0.99 X10^3/uL; Monocyte% 9.9 % (0-10); NRBC Flagged by Analyzer 0 % (0-5); Neutrophil # 6.79 X10^3/uL (2.7-7.7); Neutrophil % 67.7 % (47-70); Platelet Count 222 K/mm3 (150-450); RBC Distribution Width CV 13.2 % (11.6-14.6); RBC Distribution Width SD 47.1 fl (35.1-43.9); Red Blood Count 4.53 M/mm3 (4.6-6.2)
[2023-01-02 13:33] LABS: ALB/GLOB Ratio 1.1 RATIO (0.9-2.4); AST(SGOT) 35 U/L (15-37); Alanine Aminotransfer ALT/SGPT 42 U/L (16-61); Alkaline Phosphatase 75 U/L (45-117); Anion Gap 7 (5-15); BUN 18 mg/dL (7-18); BUN/Creat Ratio 17.6 RATIO (10-20); Calcium,Total 9.1 mg/dL (8.5-10.1); Chloride 109 mmol/L (98-107); Cholesterol 133 mg/dL (200); Creatinine, Serum 1.02 mg/dL (0.70-1.30); EST Glomerular Filtration Rate 74 mL/min (>60); Est Glom Filt Rate - Afr Amer 89 mL/min (>60); Globulin 3.5 g/dL (2.2-4.2); Glucose 123 mg/dL (74-106); High Density Lipoprotein 47 mg/dL; Potassium 3.8 mmol/L (3.5-5.1); Protein, Total 7.5 g/dL (6.4-8.2); Sodium Level 141 mmol/L (136-145); Thyroid Stim Hormone (TSH) 1.52 uIU/mL (0.358-3.74); Triglycerides 115 mg/dL; Very Low Density Lipoprotein 23 mg/dL (5-40)
== END | disposition home or self-care (01) ==
LOC: MFPLAB 10:28
PROVIDERS: PCP Family Medicine; Visit Provider Family Medicine
DX: I48.91 Unspecified atrial fibrillation (principal); I50.9 Heart failure, unspecified; I25.10 Atherosclerotic heart disease of native coronary artery without angina pectoris; N40.0 Benign prostatic hyperplasia without lower urinary tract symptoms
CPT/HCPCS: 36415; 80053; 80061; 84153; 84443; 85025

== ENCOUNTER 2023-01-20 11:30 | Outpatient (RCR) | payer MEDICARE, SELFPAY ==
[2022-05-23 23:39] VITALS: BMI 29.6
[2023-01-20 11:44] LABS: INR Fingerstick 1.9
== END 2023-01-21 18:00 | disposition home or self-care (01) ==
LOC: LAB 11:30
PROVIDERS: Family Provider Family Medicine; PCP Family Medicine; Referring Provider Internal Medicine Cardiovascular Disease; Visit Provider Internal Medicine Cardiovascular Disease
DX: I48.11 Longstanding persistent atrial fibrillation (principal); Z95.2 Presence of prosthetic heart valve; Z79.01 Long term (current) use of anticoagulants
CPT/HCPCS: 36416; 85610

== ENCOUNTER 2023-02-09 11:08 | Outpatient (RCR) | payer MEDICARE, SELFPAY ==
[2023-01-22 08:19] VITALS: BMI 29.6
[2023-01-28 10:00] LABS: INR Fingerstick 2.4
[2023-02-02 09:48] LABS: INR Fingerstick 1.9; Prothrombin Time Fingerstick 21.1 SEC (11.7-14.9)
[2023-02-02 10:28] LABS: International Normalized Ratio 1.8; Prothrombin Time (Protime)PT. 21.2 SECONDS (11.7-14.9)
[2023-02-09 11:17] LABS: INR Fingerstick 2.5; Prothrombin Time Fingerstick 26.9 SEC (11.7-14.9)
== END 2023-02-09 18:00 | disposition home or self-care (01) ==
LOC: LAB 11:08
PROVIDERS: Family Provider Family Medicine; PCP Family Medicine; Referring Provider Internal Medicine Cardiovascular Disease; Visit Provider Internal Medicine Cardiovascular Disease
DX: I48.11 Longstanding persistent atrial fibrillation (principal); Z95.2 Presence of prosthetic heart valve; Z79.01 Long term (current) use of anticoagulants
CPT/HCPCS: 36415; 36416; 85610

== ENCOUNTER 2023-03-06 13:31 | Outpatient (RCR) | payer MEDICARE, SELFPAY ==
[2023-02-21 01:54] VITALS: BMI 29.6
[2023-02-23 11:03] LABS: INR Fingerstick 2.4; Prothrombin Time Fingerstick 25.7 SEC (11.7-14.9)
[2023-03-09 09:19] LABS: Prothrombin Time Fingerstick 32.2 SEC (11.7-14.9)
== END 2023-03-23 18:00 | disposition home or self-care (01) ==
LOC: LAB 13:31
PROVIDERS: Family Provider Family Medicine; PCP Family Medicine; Referring Provider Internal Medicine Cardiovascular Disease; Visit Provider Internal Medicine Cardiovascular Disease
DX: I48.11 Longstanding persistent atrial fibrillation (principal); Z95.2 Presence of prosthetic heart valve; Z79.01 Long term (current) use of anticoagulants
CPT/HCPCS: 36416; 85610

== ENCOUNTER 2023-04-11 10:54 | Outpatient (RCR) | payer MEDICARE, SELFPAY ==
[2023-03-24 01:55] VITALS: BMI 29.6
[2023-04-11 11:04] LABS: INR Fingerstick 2.5; Prothrombin Time Fingerstick 26.6 SEC (11.7-14.9)
== END 2023-04-11 18:00 | disposition home or self-care (01) ==
LOC: LAB 10:54
PROVIDERS: Family Provider Family Medicine; PCP Family Medicine; Referring Provider Internal Medicine Cardiovascular Disease; Visit Provider Internal Medicine Cardiovascular Disease
DX: I48.11 Longstanding persistent atrial fibrillation (principal); Z95.2 Presence of prosthetic heart valve; Z79.01 Long term (current) use of anticoagulants
CPT/HCPCS: 36415; 36416; 85610

== ENCOUNTER 2023-06-16 10:04 | Outpatient (RCR) | payer MEDICARE, SELFPAY ==
[2023-04-23 23:45] VITALS: BMI 29.6
[2023-06-16 10:23] LABS: INR Fingerstick 2.5; Prothrombin Time Fingerstick 26.8 SEC (11.7-14.9)
== END 2023-06-16 18:00 | disposition home or self-care (01) ==
LOC: LAB 10:04
PROVIDERS: Family Provider Family Medicine; PCP Family Medicine; Referring Provider Internal Medicine Cardiovascular Disease; Visit Provider Internal Medicine Cardiovascular Disease
DX: I48.11 Longstanding persistent atrial fibrillation (principal); Z95.2 Presence of prosthetic heart valve; Z79.01 Long term (current) use of anticoagulants
CPT/HCPCS: 36416; 85610

== ENCOUNTER 2023-07-06 14:02 | Outpatient (CLI) | payer MEDICARE, SELFPAY ==
[2023-07-06 15:37] LABS: Hematocrit 44.7 % (40-54); Hemoglobin 14.7 g/dL (13.0-16.5); Mean Corp Hgb Conc 32.9 g/dL (32-36); Mean Corpuscular Hgb 30.8 pg (27.0-32.0); Mean Corpuscular Volume 93.7 fL (80-94); Platelet Count 268 K/mm3 (150-450); RBC Distribution Width CV 13.5 % (11.6-14.6); RBC Distribution Width SD 45.8 fl (35.1-43.9); Red Blood Count 4.77 M/mm3 (4.6-6.2); White Blood Count 11.2 K/mm3 (4.4-11.0)
[2023-07-06 16:16] LABS: Vitamin B12 475 pg/mL (211-911); Vitamin D,25 Hydroxy 38.5 ng/mL
[2023-07-06 16:22] LABS: Anion Gap 8 (5-15); BUN 20 mg/dL (7-18); BUN/Creat Ratio 22.3 RATIO (10-20); Calcium,Total 9.4 mg/dL (8.5-10.1); Chloride 105 mmol/L (98-107); EST Glomerular Filtration Rate 85 mL/min (>60); Est Glom Filt Rate - Afr Amer 103 mL/min (>60); Glucose 91 mg/dL (74-106); Potassium 3.6 mmol/L (3.5-5.1); Sodium Level 140 mmol/L (136-145); Thyroid Stim Hormone (TSH) 1.06 uIU/mL (0.358-3.74)
== END 2023-07-06 23:59 | disposition home or self-care (01) ==
LOC: MFPLAB 14:02
PROVIDERS: PCP Family Medicine; Visit Provider Family Medicine
DX: R41.3 Other amnesia (principal); M19.90 Unspecified osteoarthritis, unspecified site
CPT/HCPCS: 36415; 80048; 82306; 82607; 84443; 85027

== ENCOUNTER → 2023-08-11 | Outpatient (CLI) | payer MEDICARE, SELFPAY ==
--- NOTE | 2023-08-11 12:52 | CDU_ITS ---
Reason For Study: TIA Rt. Velocities/BP Lt. Velocities/BP Prox CCA 83.4/11.6 cm/sec. Prox CCA 155.8/15.2 cm/sec. Mid CCA 77.8/15.4 cm/sec. Mid CCA 107.2/9.0 cm/sec. Dist CCA 71.1/8.8 cm/sec. Dist CCA 59.3/13.9 cm/sec. Prox ICA 37.1/10.7 cm/sec. Prox ICA 96.1/18.8 cm/sec. Mid ICA 61.7/14.5 cm/sec. Mid ICA 48.3/12.6 cm/sec. Dist ICA 123.2/21.2 cm/sec. Dist ICA 90.0/18.8 cm/sec. Rt. ICA/CCA = 1.6. Lt. ICA/CCA = .9. Prox ECA 132.1/9.7 cm/sec. Prox ECA 104.7/5.3 cm/sec. Rt. Vert. 32.3/7.7 cm/sec. Lt. Vert. 66.7/11.4 cm/sec. Right Extracranial There is heterogeneous, smooth atherosclerotic plaque noted in the right common carotid artery. There is heterogeneous, irregular atherosclerotic plaque noted in the right internal carotid artery. There is heterogeneous, irregular atherosclerotic plaque noted in the right external carotid artery. Antegrade flow is noted in the right vertebral artery. Left Extracranial There is homogeneous, smooth atherosclerotic plaque noted in the left common carotid artery. There is heterogeneous, irregular atherosclerotic plaque noted in the left internal carotid artery. There is heterogeneous, irregular atherosclerotic plaque noted in the left external carotid artery. Antegrade flow is noted in the left vertebral artery. Procedure Carotid Duplex 92473. This is a Carotid Duplex examination using B-mode, color flow and specral Doppler. The exam was diagnostic. Exam performed in department. VL/Carotid Duplex Ultrasound Interpretation Summary Mild (<50%) stenosis right extracranial internal carotid. Mild (<50%) stenosis left extracranial internal carotid. Patent and antegrade vertebrals bilaterally. Ordering Physician: Fernando Cortez Referring Physician: Fernando Cortez Performed By: Aries Welsh Karoline
== END | disposition home or self-care (01) ==
LOC: CVS 12:48
PROVIDERS: PCP Family Medicine; Referring Provider Family Medicine; Visit Provider Family Medicine
DX: G45.9 Transient cerebral ischemic attack, unspecified (principal); R41.3 Other amnesia; R42 Dizziness and giddiness
CPT/HCPCS: 93880

== ENCOUNTER → 2023-08-25 | Outpatient (CLI) | payer MEDICARE, SELFPAY ==
--- NOTE | 2023-08-25 11:03 | MRI_ITS ---
STUDY: MRI BRAIN WITHOUT CONTRAST REASON FOR EXAM: Male, 87 years old. DEMENTIA, ATAXIA, HEAD TRAUMA TECHNIQUE: Standardized multiplanar fat and water weighted pulse sequences were obtained. COMPARISON: Head CT dated July 21, 2022 FINDINGS: There is moderate cerebral atrophy with widening of the extra-axial spaces and ventricular dilatation. There are multiple white matter hyperintensities, distributed throughout the deep white matter tracts of the cerebral hemispheres, consistent with moderate chronic white matter ischemic changes. There is no evidence for recent intracranial ischemia or other cause of cytotoxic edema on diffusion weighted imaging (DWI). Normal T2* images of the brain without demonstrated susceptibility artifact. There is no demonstrated hemosiderin stain. Normal bilateral frontal poles, and orbital frontal and gyrus recti of the frontal lobes. Normal bilateral temporal tips of the temporal lobes. There are no white matter shear injuries (diffuse axonal injuries). There are no parenchymal hemorrhages or hematomas. There are no findings to suggest prior closed head parenchymal injury of the brain. No demonstrated midline shift or hydrocephalus. Normal bilateral basal ganglia. Normal thalami. There is no extra-axial fluid accumulation. Normal flow voids within the major intracranial circulation suggesting patency by spin echo criteria. Normal sella turcica, pituitary gland, infundibular stalk, optic chiasm and hypothalamus. Normal tectal plate and pineal gland. Normal midbrain, scot and medulla. Normal cerebellum. Normal basal cisterns. Normal bilateral temporal bones. Normal bilateral internal auditory canals. No demonstrated orbital abnormality, within the constraints of a routine brain study. Normal visualized paranasal sinuses. Normal calvarium and skull base. Normal visualized soft tissue structures. Normal visualized upper cervical spine. MRI/Brain without Contrast IMPRESSION: 1. Involutional and chronic ischemic changes of the brain, as described above. 2. No demonstrated acute infarct or intracranial hemorrhage. Electronically Signed: Chilo Lyon MD at 15:16 EST ,
== END | disposition home or self-care (01) ==
LOC: MRI 11:01
PROVIDERS: PCP Family Medicine; Referring Provider Family Medicine; Visit Provider Family Medicine
DX: R41.3 Other amnesia (principal); F03.90 Unspecified dementia, unspecified severity, without behavioral disturbance, psychotic disturbance, mood disturbance, and anxiety; R27.0 Ataxia, unspecified; Z95.1 Presence of aortocoronary bypass graft; Z95.2 Presence of prosthetic heart valve
CPT/HCPCS: 70551

== ENCOUNTER 2023-11-12 15:06 | Outpatient (RCR) | payer MEDICARE, SELFPAY ==
[2023-06-23 22:52] VITALS: BMI 29.6
[2023-11-12 15:42] LABS: International Normalized Ratio 1.6; Prothrombin Time (Protime)PT. 18.9 SECONDS (11.7-14.9)
[2023-11-13 13:23] LABS: INR Fingerstick 1.6; Prothrombin Time Fingerstick 17.2 SEC (11.7-14.9)
== END 2023-11-22 01:32 | disposition home or self-care (01) ==
LOC: LAB 15:06
PROVIDERS: Family Provider Family Medicine; PCP Family Medicine; Referring Provider Internal Medicine Cardiovascular Disease; Visit Provider Internal Medicine Cardiovascular Disease
DX: I48.11 Longstanding persistent atrial fibrillation (principal); Z95.2 Presence of prosthetic heart valve; Z79.01 Long term (current) use of anticoagulants
CPT/HCPCS: 36415; 36416; 85610

== ENCOUNTER 2023-12-22 11:20 | Outpatient (RCR) | payer MEDICARE, SELFPAY ==
[2023-11-22 01:33] VITALS: BMI 29.6
[2023-12-22 15:38] LABS: Hematocrit 42.3 % (40-54); Hemoglobin 13.9 g/dL (13.0-16.5); Mean Corp Hgb Conc 32.9 g/dL (32-36); Mean Corpuscular Hgb 30.5 pg (27.0-32.0); Mean Corpuscular Volume 92.8 fL (80-94); Mean Platelet Vol. 10.3 fl (6.2-12.0); Platelet Count 206 K/mm3 (150-450); RBC Distribution Width CV 13.9 % (11.6-14.6); RBC Distribution Width SD 47.3 fl (35.1-43.9); Red Blood Count 4.56 M/mm3 (4.6-6.2); White Blood Count 11.7 K/mm3 (4.4-11.0)
[2023-12-22 15:53] LABS: International Normalized Ratio 2.9; Prothrombin Time (Protime)PT. 30.4 SECONDS (11.7-14.9)
[2023-12-22 15:58] LABS: Vitamin B12 460 pg/mL (211-911)
[2023-12-22 16:16] LABS: ALB/GLOB Ratio 1.2 RATIO (0.9-2.4); AST(SGOT) 35 U/L (15-37); Alanine Aminotransfer ALT/SGPT 32 U/L (16-61); Albumin, Serum 4.1 g/dL (3.2-5.0); Alkaline Phosphatase 79 U/L (45-117); Anion Gap 6 (5-15); BUN 24 mg/dL (7-18); BUN/Creat Ratio 20.9 RATIO (10-20); Calcium,Total 9.6 mg/dL (8.5-10.1); Chloride 108 mmol/L (98-107); Creatinine, Serum 1.15 mg/dL (0.70-1.30); EST Glomerular Filtration Rate 64 mL/min (>60); Est Glom Filt Rate - Afr Amer 78 mL/min (>60); Globulin 3.3 g/dL (2.2-4.2); Glucose 111 mg/dL (74-106); Potassium 4.2 mmol/L (3.5-5.1); Protein, Total 7.4 g/dL (6.4-8.2); Sodium Level 139 mmol/L (136-145); Thyroid Stim Hormone (TSH) 0.88 uIU/mL (0.358-3.74)
[2023-12-25 21:07] LABS: Free Kappa Light Chains 19.6 mg/L (3.3-19.4); Free Lambda Light Chains 15.8 mg/L (5.7-26.3); Vitamin B1, Thiamine 153.6 nmol/L (66.5-200.0)
== END 2023-12-22 21:52 | disposition home or self-care (01) ==
LOC: MTLAB 11:20
PROVIDERS: Psychiatry & Neurology Neurology; Family Provider Family Medicine; PCP Family Medicine; Referring Provider Internal Medicine Cardiovascular Disease; Visit Provider Internal Medicine Cardiovascular Disease
DX: I48.11 Longstanding persistent atrial fibrillation (principal); Z95.2 Presence of prosthetic heart valve; Z79.01 Long term (current) use of anticoagulants; F03.90 Unspecified dementia, unspecified severity, without behavioral disturbance, psychotic disturbance, mood disturbance, and anxiety; G62.9 Polyneuropathy, unspecified
CPT/HCPCS: 36415; 80053; 82607; 82746; 83883; 84425; 84443; 85027; 85610

== ENCOUNTER 2024-01-29 14:49 | Outpatient (RCR) | payer MEDICARE, SELFPAY ==
[2023-12-22 21:53] VITALS: BMI 29.6
[2024-01-29 15:09] LABS: INR Fingerstick 2.6; Prothrombin Time Fingerstick 26.4 SEC (11.7-14.9)
== END 2024-01-29 18:00 | disposition home or self-care (01) ==
LOC: MTLAB 14:49
PROVIDERS: Family Provider Family Medicine; PCP Family Medicine; Referring Provider Internal Medicine Cardiovascular Disease; Visit Provider Internal Medicine Cardiovascular Disease
DX: I48.11 Longstanding persistent atrial fibrillation (principal); Z95.2 Presence of prosthetic heart valve; Z79.01 Long term (current) use of anticoagulants
CPT/HCPCS: 36416; 85610

== ENCOUNTER → 2024-03-08 | Outpatient (CLI) | payer MEDICARE, SELFPAY ==
--- NOTE | 2024-03-08 12:33 | RAD_ITS ---
STUDY: X-RAY CHEST REASON FOR EXAM: Male, 88 years old. cough TECHNIQUE: PA and lateral views of the chest. COMPARISON: 07/21/2022 FINDINGS: Status post median sternotomy. The lungs are clear and expanded. There is no demonstrated pleural abnormality. Normal size heart. Normal mediastinum and wendy. Normal visualized pulmonary arteries. Normal visualized aortic arch and descending thoracic aorta. Normal visualized thoracic spine. Normal visualized ribs, clavicles, and shoulders. There is no demonstrated abnormality of the visualized soft tissue structures of the upper abdomen. RAD/Chest PA and Lateral IMPRESSION: No active disease. Electronically Signed: Cornell Sykes MD at 8:22 EDT ,
== END | disposition home or self-care (01) ==
LOC: MTRAD 12:33
PROVIDERS: PCP Family Medicine; Referring Provider Family Medicine; Visit Provider Family Medicine
DX: J40 Bronchitis, not specified as acute or chronic (principal)
CPT/HCPCS: 71046

== ENCOUNTER 2024-03-11 11:00 | Outpatient (RCR) | payer MEDICARE, SELFPAY ==
--- NOTE | 2024-03-03 11:45 | HP.PTEVAL_ITS ---
Patient's Visit Information Visit Information Visit Information: GEORGE MCCLAIN is a 88 year old M referred to Physical Therapy by Dr. Michael Cortez MD with a diagnosis of gait instability. Date of Evaluation: 03/03/24 Physical Therapist: Mike Rivero, DPT, OCS, CSCS Visit Plan Frequency: 2x /Week Duration: 4-6 Weeks Plan: 2x/week for 4-6 weeks... Pt already doing good sagittal plane strength on machines and bike [facility]. requires being taught hip strength machines, balance with weight shifting and turning, funcitonal balance and gold swing ex to I at [facility] with list and pics please.LE coordination exercises Subjective Subjective: Is here for balance. Has hearing and vision problem. Had trouble with balance since stroke about a year ago. L side is weaker than R since stroke. Working out at [facility] lifting weights and bike machines, does upper body and lower body. 30 min on bike. Swingoing a golf club is not pretty, sometimes w alking is unsteady and feels off balance. No stumbling or falls. Activities avoided include climbing ladder and golf. Would like to get back to golfing. Feels a little unsteady on the follow through onto L side. Basic ADLS at home are I. Vision and hearing hold him back. Steps at home with either leg. No spinning. No neuropathy Objective Objective: Walks with mildly neuropathic gait pattern avoiding pushoff and hesitant weight shift but I gait and transfers bed and chair. Steps are recirpocal up and needs rail down for safety. SLS L 0 and R 3-5 seconds. L leg 61# quad adn R is 74# quad. L quad weker than R but funcitonal and not overly noticeable on steps outside of motor control.Hip abd , extension and rotations weak at 3+ vs flex and quads and HS at 5, ankles at 5 PF, DF and 4 inv/ev. LE AROM WFL and symmetrical. coordination to reciprocal toe and heel tap is poor sensation LE WNL to gross light touch but toes feel numby. reflexes 1/3 patella adn achilles B. Balance/Special Test Scores Functional Gait Assessment Score: 28 % Disability: 6.6700 CATSIB Score (Max score 120 seconds): 118 Lower Extremity Functional Score: 47 Goals Goal 1:: I appropriate nnamdi shifting, balance and fucnitonal balance and golf swing exercises to add to his current [facility] machine strength and bike progrm Goal Time Frame: 4-6 Weeks Goal 2:: Pt feel 50% steadier in ability to get around Goal Time Frame: 4-6 Weeks Goal 3:: steps reciprocally without rail up and down Goal Time Frame: 4-6 Weeks Goal 4:: LEFS 55 Goal Time Frame: 4-6 Weeks Rehabilitation Potential Physical Therapy Diagnosis: motor control L worse than R LE causing unsteady feeling Rehabilitation Potential: Good Anticipated Interventions Patient/Client Instruction: Educate patient on: Condition and Risk Factors For the Purpose of:: To improve muscle performance and motor function, To inc rease tolerance to activity/condition/position, To improve ability of physical actions for home/community/work/leisure, To improve gait and locomotor functions and To improve safety Therapeutic Exercise to Include: Strength training, Balance training and Gait and locomotor training Comment: weight shifting, fucnitonal balance For the Purpose of:: To improve muscle performance and motor function, To increase tolerance to activity/condition/position and To improve ability of physical actions for home/community/work/leisure Text: Thank you for the opportunity to evaluate your patient. For Medicare and Medicare HMO plans, please review the plan of care and approve it. It will need to be FAXED BACK to us at [phone] for Medicare purposes. For Medicare only, by signing this I certify the plan of care. Please let me know if there are questions or concerns regarding this plan of care. Physician Signature: Date:
== END 2024-03-11 19:00 | disposition home or self-care (01) ==
LOC: PT 11:00
PROVIDERS: PCP Family Medicine; Referring Provider Family Medicine; Visit Provider Family Medicine
DX: R26.81 Unsteadiness on feet (principal); H35.30 Unspecified macular degeneration
CPT/HCPCS: 97110; 97161

== ENCOUNTER → 2024-03-14 | Outpatient (CLI) | payer MEDICARE, SELFPAY ==
[2024-03-14 12:07] LABS: Absolute Lymphocyte Count 2.48 X10^3/uL (0.83-4.51); Absolute Neutrophil Count 9.7 X10^3/uL (2.0-7.7); Basophil# 0.13 X10^3/uL; Basophil% 0.9 % (0-1); Eosinophil# 0.32 X10^3/uL; Eosinophils% 2.3 % (0-5); Hematocrit 47.6 % (40-54); Hemoglobin 15.4 g/dL (13.0-16.5); Lymphocyte # 2.48 X10^3/ul (0.83-4.51); Lymphocyte % 17.7 % (19-41); Mean Corp Hgb Conc 32.4 g/dL (32-36); Mean Corpuscular Hgb 30.3 pg (27.0-32.0); Mean Corpuscular Volume 93.7 fL (80-94); Mean Platelet Vol. 9.8 fl (6.2-12.0); Monocyte# 1.29 X10^3/uL; Monocyte% 9.2 % (0-10); NRBC Flagged by Analyzer 0 % (0-5); Neutrophil % 69.1 % (47-70); Platelet Count 303 K/mm3 (150-450); RBC Distribution Width CV 13.7 % (11.6-14.6); RBC Distribution Width SD 47.1 fl (35.1-43.9); Red Blood Count 5.08 M/mm3 (4.6-6.2)
== END | disposition home or self-care (01) ==
LOC: MTLAB 09:34
PROVIDERS: PCP Family Medicine; Referring Provider Family Medicine; Visit Provider Family Medicine
DX: R53.83 Other fatigue (principal)
CPT/HCPCS: 36415; 85025

== ENCOUNTER → 2024-03-16 | Outpatient (CLI) | payer MEDICARE, SELFPAY ==
[2024-03-16 12:15] LABS: Absolute Lymphocyte Count 2.32 X10^3/uL (0.83-4.51); Absolute Neutrophil Count 9.6 X10^3/uL (2.0-7.7); Basophil# 0.06 X10^3/uL; Basophil% 0.4 % (0-1); Eosinophil# 0.23 X10^3/uL; Eosinophils% 1.7 % (0-5); Hematocrit 46.9 % (40-54); Hemoglobin 15.3 g/dL (13.0-16.5); Lymphocyte # 2.32 X10^3/ul (0.83-4.51); Mean Corp Hgb Conc 32.6 g/dL (32-36); Mean Corpuscular Hgb 30.8 pg (27.0-32.0); Mean Corpuscular Volume 94.4 fL (80-94); Mean Platelet Vol. 9.9 fl (6.2-12.0); Monocyte# 1.31 X10^3/uL; Monocyte% 9.6 % (0-10); NRBC Flagged by Analyzer 0 % (0-5); Neutrophil # 9.58 X10^3/uL (2.7-7.7); Neutrophil % 70.5 % (47-70); Platelet Count 267 K/mm3 (150-450); RBC Distribution Width CV 13.7 % (11.6-14.6); RBC Distribution Width SD 47.4 fl (35.1-43.9); Red Blood Count 4.97 M/mm3 (4.6-6.2); White Blood Count 13.6 K/mm3 (4.4-11.0)
[2024-03-16 12:46] LABS: Anion Gap 9 (5-15); BUN 32 mg/dL (7-18); BUN/Creat Ratio 24.1 RATIO (10-20); Calcium,Total 9.9 mg/dL (8.5-10.1); Chloride 101 mmol/L (98-107); Creatinine, Serum 1.33 mg/dL (0.70-1.30); EST Glomerular Filtration Rate 54 mL/min (>60); Est Glom Filt Rate - Afr Amer 66 mL/min (>60); Glucose 126 mg/dL (74-106); Potassium 3.9 mmol/L (3.5-5.1); Sodium Level 136 mmol/L (136-145)
== END | disposition home or self-care (01) ==
PROVIDERS: PCP Family Medicine; Referring Provider Family Medicine; Visit Provider Family Medicine
DX: R53.83 Other fatigue (principal)
CPT/HCPCS: 36415; 80048; 85025

== ENCOUNTER 2024-03-21 15:36 | Outpatient (RCR) | payer MEDICARE, SELFPAY ==
[2024-02-21 22:36] VITALS: BMI 29.6
[2024-03-04 09:58] LABS: INR Fingerstick 3.2; Prothrombin Time Fingerstick 31.6 SEC (11.7-14.9)
[2024-03-21 17:06] LABS: International Normalized Ratio 4.2; Prothrombin Time (Protime)PT. 40.2 SECONDS (11.7-14.9)
== END 2024-03-23 18:00 | disposition home or self-care (01) ==
LOC: LAB 15:36
PROVIDERS: Family Provider Family Medicine; PCP Family Medicine; Referring Provider Internal Medicine Cardiovascular Disease; Visit Provider Internal Medicine Cardiovascular Disease
DX: I48.11 Longstanding persistent atrial fibrillation (principal); Z95.2 Presence of prosthetic heart valve; Z79.01 Long term (current) use of anticoagulants
CPT/HCPCS: 36415; 36416; 85610

== ENCOUNTER → 2024-03-25 | Outpatient (CLI) | payer MEDICARE, SELFPAY ==
--- NOTE | 2024-03-25 13:22 | RAD_ITS ---
INDICATION: COUGH EXAMINATION/TECHNIQUE: X-RAY - XR Chest 2 Views COMPARISON: Prior study dated: 03/08/2024 FINDINGS: LINES/DEVICES: Median sternotomy wires appear intact. LUNGS: The lungs are well expanded. Bronchial wall thickening. No consolidation, edema or effusion. No pneumothorax. MEDIASTINUM AND CARDIOVASCULAR STRUCTURES: Cardiac silhouette not enlarged. Central airways and mediastinal contour are unremarkable. BONES AND SOFT TISSUES: No acute abnormality. Mild degenerative changes of the spine. RAD/Chest PA and Lateral IMPRESSION: No consolidation. Bronchial wall thickening can be seen with a small airways process such as asthma or atypical/viral infection. Electronically Signed: Marco Cedeno MD at 23:33 EDT ,
[2024-03-25 16:06] LABS: Absolute Lymphocyte Count 1.83 X10^3/uL (0.83-4.51); Absolute Neutrophil Count 11.6 X10^3/uL (2.0-7.7); Basophil# 0.11 X10^3/uL; Basophil% 0.7 % (0-1); Eosinophil# 0.63 X10^3/uL; Hemoglobin 12.7 g/dL (13.0-16.5); Lymphocyte # 1.83 X10^3/ul (0.83-4.51); Lymphocyte % 11.5 % (19-41); Mean Corp Hgb Conc 32.6 g/dL (32-36); Mean Corpuscular Hgb 31.3 pg (27.0-32.0); Mean Corpuscular Volume 96.1 fL (80-94); Mean Platelet Vol. 9.8 fl (6.2-12.0); Monocyte# 1.56 X10^3/uL; Monocyte% 9.8 % (0-10); NRBC Flagged by Analyzer 0 % (0-5); Neutrophil # 11.61 X10^3/uL (2.7-7.7); Neutrophil % 73.2 % (47-70); POSITIVE DIFFERENTIAL YES; Platelet Count 249 K/mm3 (150-450); RBC Distribution Width CV 14.5 % (11.6-14.6); RBC Distribution Width SD 50.1 fl (35.1-43.9); Red Blood Count 4.06 M/mm3 (4.6-6.2); White Blood Count 15.9 K/mm3 (4.4-11.0)
[2024-03-25 16:09] LABS: Differential Indicated SCAN CRITERIA MET
[2024-03-25 17:09] LABS: Differential Comment SCANNED
[2024-03-28 13:43] LABS: Pathologist Review Reviewed
== END | disposition home or self-care (01) ==
PROVIDERS: PCP Family Medicine; Referring Provider Family Medicine; Visit Provider Family Medicine
DX: R05.9 Cough, unspecified (principal)
CPT/HCPCS: 36415; 71046; 85025

== ENCOUNTER 2024-03-28 13:49 | Outpatient (RCR) | payer MEDICARE, SELFPAY ==
[2024-03-23 23:05] VITALS: BMI 29.6
[2024-03-29 08:39] LABS: Prothrombin Time Fingerstick 20.8 SEC (11.7-14.9)
== END 2024-03-28 18:00 | disposition home or self-care (01) ==
LOC: LAB 13:49
PROVIDERS: Family Provider Family Medicine; PCP Family Medicine; Referring Provider Internal Medicine Cardiovascular Disease; Visit Provider Internal Medicine Cardiovascular Disease
DX: I48.11 Longstanding persistent atrial fibrillation (principal); Z95.2 Presence of prosthetic heart valve; Z79.01 Long term (current) use of anticoagulants
CPT/HCPCS: 36416; 85610

== ENCOUNTER → 2024-05-16 | Outpatient (CLI) | payer MEDICARE, SELFPAY | END | disposition home or self-care (01) | PROVIDERS: PCP Family Medicine; Referring Provider Internal Medicine Pulmonary Disease; Visit Provider Internal Medicine Pulmonary Disease | DX: R05.9 Cough, unspecified (principal) ==

== ENCOUNTER 2024-05-24 09:31 | Outpatient (RCR) | payer MEDICARE, SELFPAY ==
[2024-04-24 03:05] VITALS: BMI 29.6
[2024-05-24 09:57] LABS: INR Fingerstick 3.4; Prothrombin Time Fingerstick 33.6 SEC (11.7-14.9)
[2024-05-24 10:46] LABS: Basophil# 0.08 X10^3/uL; Basophil% 0.7 % (0-1); Eosinophil# 0.17 X10^3/uL; Eosinophils% 1.5 % (0-5); Hematocrit 39.5 % (40-54); Hemoglobin 12.8 g/dL (13.0-16.5); Lymphocyte % 16.2 % (19-41); Mean Corp Hgb Conc 32.4 g/dL (32-36); Mean Corpuscular Hgb 30.7 pg (27.0-32.0); Mean Corpuscular Volume 94.7 fL (80-94); Mean Platelet Vol. 9.8 fl (6.2-12.0); Monocyte# 1.02 X10^3/uL; Monocyte% 9.2 % (0-10); NRBC Flagged by Analyzer 0 % (0-5); Neutrophil # 7.95 X10^3/uL (2.7-7.7); Neutrophil % 71.9 % (47-70); Platelet Count 206 K/mm3 (150-450); RBC Distribution Width CV 14.4 % (11.6-14.6); RBC Distribution Width SD 49.5 fl (35.1-43.9); Red Blood Count 4.17 M/mm3 (4.6-6.2); White Blood Count 11.1 K/mm3 (4.4-11.0)
[2024-05-24 11:14] LABS: BNP,B-Type NATRIURETIC PEPTIDE 164.2 pg/mL (0-100)
[2024-05-24 11:16] LABS: Anion Gap 6 (5-15); BUN 18 mg/dL (7-18); BUN/Creat Ratio 14.9 RATIO (10-20); Calcium,Total 9.5 mg/dL (8.5-10.1); Chloride 111 mmol/L (98-107); Creatinine, Serum 1.21 mg/dL (0.70-1.30); EST Glomerular Filtration Rate 60 mL/min (>60); Est Glom Filt Rate - Afr Amer 73 mL/min (>60); Glucose 114 mg/dL (74-106); Potassium 3.6 mmol/L (3.5-5.1); Sodium Level 141 mmol/L (136-145)
== END 2024-05-24 18:00 | disposition home or self-care (01) ==
LOC: LAB 09:31
PROVIDERS: Physician Assistant Medical; Family Provider Family Medicine; PCP Family Medicine; Referring Provider Internal Medicine Cardiovascular Disease; Visit Provider Internal Medicine Cardiovascular Disease
DX: I48.11 Longstanding persistent atrial fibrillation (principal); Z95.2 Presence of prosthetic heart valve; Z79.01 Long term (current) use of anticoagulants; R05.8 Other specified cough; I50.32 Chronic diastolic (congestive) heart failure; J20.9 Acute bronchitis, unspecified; R06.02 Shortness of breath
CPT/HCPCS: 36415; 36416; 80048; 83880; 85025; 85610

== ENCOUNTER → 2024-05-24 | Outpatient (CLI) | payer MEDICARE, SELFPAY ==
--- NOTE | 2024-05-24 09:31 | RAD_ITS ---
STUDY: X-RAY CHEST REASON FOR EXAM: Male, 88 years old. Shortness of breath, productive cough TECHNIQUE: PA and lateral views of the chest. COMPARISON: Comparison is made with prior study dated March 25, 2024. FINDINGS: Hyperinflation. Once again, there is evidence of increase interstitial markings in both lungs which have progressed as compared to prior study. This may represent a mild degree of CHF superimposed on bibasilar scarring more prominent in the left lung. There is no demonstrated pleural abnormality. Sternal cerclage wires and vascular clips are present from a prior sternotomy and coronary artery bypass graft procedure (CABG). Normal mediastinum and wendy. Normal visualized pulmonary arteries. There is atherosclerotic calcification of the aortic arch with tortuosity. There are diffuse degenerative changes of the visualized thoracic spine. Normal visualized ribs, clavicles, and shoulders. There is no demonstrated abnormality of the visualized soft tissue structures of the upper abdomen. 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 Electronically Signed: Skyler Dhaliwal MD at 9:53 EDT ,
== END | disposition home or self-care (01) ==
LOC: RAD 09:30
PROVIDERS: PCP Family Medicine; Referring Provider Physician Assistant Medical; Visit Provider Physician Assistant Medical
DX: R05.8 Other specified cough (principal); I50.32 Chronic diastolic (congestive) heart failure; R06.02 Shortness of breath; I35.2 Nonrheumatic aortic (valve) stenosis with insufficiency
CPT/HCPCS: 71046

== ENCOUNTER → 2024-05-28 | Outpatient (CLI) | payer MEDICARE, SELFPAY | END | disposition home or self-care (01) | PROVIDERS: PCP Family Medicine; Referring Provider Internal Medicine Pulmonary Disease; Visit Provider Internal Medicine Pulmonary Disease | DX: I27.20 Pulmonary hypertension, unspecified (principal); R05.9 Cough, unspecified | CPT/HCPCS: 87070; 87205 ==

== ENCOUNTER → 2024-05-30 | Outpatient (CLI) | payer MEDICARE, SELFPAY | END | disposition home or self-care (01) | LOC: LABSPEC 11:48 | PROVIDERS: PCP Family Medicine; Referring Provider Internal Medicine Pulmonary Disease; Visit Provider Internal Medicine Pulmonary Disease | DX: I27.20 Pulmonary hypertension, unspecified (principal); R05.9 Cough, unspecified | CPT/HCPCS: 87070; 87077; 87205 ==

== ENCOUNTER → 2024-05-31 | Outpatient (CLI) | payer MEDICARE, SELFPAY | END | disposition home or self-care (01) | PROVIDERS: PCP Family Medicine; Referring Provider Internal Medicine Pulmonary Disease; Visit Provider Internal Medicine Pulmonary Disease | DX: I27.20 Pulmonary hypertension, unspecified (principal); R05.9 Cough, unspecified | CPT/HCPCS: 87070; 87205 ==

== ENCOUNTER → 2024-06-06 | Outpatient (CLI) | payer MEDICARE, SELFPAY ==
--- NOTE | 2024-06-06 12:50 | ECHOD_ITS ---
Reason For Study: CHF Procedure This was a 2D Doppler, Color Flow transthoracic echocardiogram. Exam performed in department. Left Ventricle Normal LV size. Moderate concentric left ventricular hypertrophy. Left ventricular systolic function is normal. The left ventricular ejection fraction is 65 %. No regional wall motion abnormalities noted. Right Ventricle Mildly dilated right ventricle. Normal systolic function. Atria The left atrium is mildly enlarged. The right atrium is mildly enlarged. Mitral Valve There is moderate mitral annular calcification. Mild-Moderate (1-2+) eccentric mitral valve insufficiency. Tricuspid Valve Normal tricuspid valve. Moderate (2+) tricuspid valve insufficiency. Pulmonary artery systolic pressure is 59 mmHg. Moderate pulmonary hypertension. Aortic Valve Peak aortic valve gradient 33 mmHg. Mean aortic valve gradient 16 mmHg. Bileaflet mechanical aortic valve. Great Vessels Mildly dilated aortic root. The pulmonary artery is normal size. Pericardium/Pleural No pericardial effusion. MMode/2D Measurements & Calculations LVIDd: 3.7 cm IVSd: 1.5 cm LVOT diam: 1.8 cm LVIDs: 2.7 cm LVPWd: 1.2 cm LVOT area: 2.5 cm2 RVDd: 4.5 cm FS: 26.8 % Ao root diam: 4.3 cm LAV(MOD-bp): 85.6 ml LA A4 area: 25.0 cm2 LAV(MOD-bp) Indexed: 44.5 ml/m2 LAV(MOD-sp2): 98.1 ml LAV(MOD-sp4): 75.5 ml LA dimension(2D): 4.8 cm RA A4 area: 24.0 cm2 Doppler Measurements & Calculations MV E max stanley: 148.0 cm/sec Lat Peak E' Stanley: 8.9 cm/sec Med Peak E' Stanley: 5.5 cm/sec E/E' lat: 16.6 E/E' med: 26.9 MV V2 max: 185.7 cm/sec MV P1/2t max stanley: 187.2 cm/sec Ao V2 max: 288.7 cm/sec MV max P.8 mmHg MV P1/2t: 81.2 msec Ao max P.4 mmHg MV V2 mean: 83.3 cm/sec Ao V2 mean: 184.1 cm/sec MV mean P.7 mmHg MV dec slope: 675.7 cm/sec2 Ao mean P.8 mmHg MV V2 VTI: 42.2 cm MVA(P1/2t): 2.7 cm2 Ao V2 VTI: 56.2 cm AV (velocity ratio): 0.50 MVA(VTI): 1.7 cm2 MALU(I,D): 1.3 cm2 MALU(V,D): 1.1 cm2 LV V1 max: 125.8 cm/sec MR max stanley: 653.0 cm/sec SV(LVOT): 70.3 ml LV V1 max P.4 mmHg MR max P.5 mmHg LV V1 mean P.2 mmHg MR mean stanley: 534.6 cm/sec LV V1 mean: 82.3 cm/sec MR mean P.0 mmHg LV V1 VTI: 28.3 cm MR VTI: 217.8 cm PA V2 max: 147.8 cm/sec TR max stanley: 370.8 cm/sec TR max P.0 mmHg ECHO/Echo Complete Interpretation Summary Normal LV size. Moderate concentric left ventricular hypertrophy. Left ventricular systolic function is normal. The left ventricular ejection fraction is 65 %. Pulmonary artery systolic pressure is 59 mmHg. Moderate pulmonary hypertension. Bileaflet mechanical aortic valve. Ordering Physician: Kelli Vivas Referring Physician: Kelli Vivas Performed By: Anton So RCS
== END | disposition home or self-care (01) ==
PROVIDERS: PCP Family Medicine; Referring Provider Physician Assistant Medical; Visit Provider Physician Assistant Medical
DX: Z95.2 Presence of prosthetic heart valve (principal); I50.32 Chronic diastolic (congestive) heart failure; I48.11 Longstanding persistent atrial fibrillation; R06.02 Shortness of breath; R05.8 Other specified cough; I35.2 Nonrheumatic aortic (valve) stenosis with insufficiency
CPT/HCPCS: 93306

== ENCOUNTER 2024-08-08 12:08 | Outpatient (RCR) | payer MEDICARE, SELFPAY ==
[2024-06-23 21:24] VITALS: BMI 29.6
[2024-08-08 12:19] LABS: INR Fingerstick 2.1; Prothrombin Time Fingerstick 23.2 SEC (11.7-14.9)
== END 2024-08-08 18:00 | disposition home or self-care (01) ==
LOC: LAB 12:08
PROVIDERS: Family Provider Family Medicine; PCP Family Medicine; Referring Provider Internal Medicine Cardiovascular Disease; Visit Provider Internal Medicine Cardiovascular Disease
DX: I48.11 Longstanding persistent atrial fibrillation (principal); Z95.2 Presence of prosthetic heart valve; Z79.01 Long term (current) use of anticoagulants
CPT/HCPCS: 36416; 85610

== ENCOUNTER 2024-10-03 13:30 | Outpatient (RCR) | payer MEDICARE, SELFPAY ==
--- NOTE | 2024-08-01 10:24 | HP.PTEVAL_ITS ---
Patient's Visit Information Visit Information Visit Information: GEORGE MCCLAIN is a 88 year old M referred to Physical Therapy by Dr. Michael Cortez MD with a diagnosis of balance training, poor eye sight. Date of Evaluation: 08/01/24 Physical Therapist: Ulysses Wright DPT Visit Plan Frequency: 2x /Week Duration: 6 Weeks Plan: 1) balance performance test completed, add in results to exercises 2) glute med strength, ankle EVR strength 3) Dynamic balance with R to L wt. shifting to simulate golf swing. Add in rotation as well. Subjective Subjective: Pt. is here today for his initial evaluation with diagnosis of balance training, poor eye sight. Pt. was here earlier this year, but became sick and had to stop coming in. He is finally feeling better and ready to start back with PT. Pt. reports no falls recently, but reports feeling unsteady, especially with his recreational activities. These include golf and some tennis. Pt. 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 Pt. does still drive, but not at night. Pt. does go to [employer] and use their gym for strengthening. Pt. is hopeful to increase his stability in order to complete all ADls and his recreational activities without fear of falling. Objective Objective: POSTURE: Pt. has slight flexed posture in stance. Slight wide ABDELRAHMAN. PALPATION: No issues with palpation of BLEs. NEURO: Pt. has normal DTR of BLEs. Pt. is able to rise on heels and toes without issues. Pt. does have some slight sensation loss in distal LEs to both light and firm touch. ROM: Pt. has decent ROM throughout BLEs. Slight calf tightness noted. MMT: Pt. has 5/5 strength throughout BLEs, except 4/5 B hip abd and B ankle EVR. Core strength: fair-. GAIT: Pt. ambulates without AD. Pt. is a bit impulsive with his movements. Pt. has good foot clearance, no major LOB noted with gait. Simulated golf swing: multiple off balance with posterior loss. Pt. was able to self correct, but needed stepping strategies to correct. I would like to have him do a balance performance test to fully define where his instability origin. Balance/Special Test Scores Functional Gait Assessment Score: 24 % Disability: 20.0000 Lower Extremity Functional Score: 40 TUG Test Time Seconds: 11.1 30 Second Chair Rise Test Seconds: 19 6 Minute Walk Test: 816 feet no AD Goals Goal 1:: LTG: Pt. to be I with HEP for LE strength and balance. Goal Time Frame: 4-6 Weeks Goal 2:: LTG: Pt. to have increased glute medius and ankle eversion strength to 5/5. Goal Time Frame: 4-6 Weeks Goal 3:: LTG: to have improved FGA to 28/30 indicating improved balance. Goal Time Frame: 4-6 Weeks Goal 4:: STG: pt. to have balance performance test completed. Goal Time Frame: 2-4 Weeks Goal 5:: LTG: Pt. to have improved TUG to less than 10sec indicating good stability. Goal Time Frame: 4-6 Weeks Goal 6:: LTG: Pt. to complete all simulated golf swings without LOB. Goal Time Frame: 6-8 Weeks Rehabilitation Potential Physical Therapy Diagnosis: Pt. has signs and symptoms consistent with imbalance. He has some marked lateral weakness, but also some instability with directional changes and with lateral wt. shifting. He would benefit from PT to address his lateral strength issues and his difficulty with dynamic wt. shifting. Rehabilitation Potential: Excellent Anticipated Interventions Patient/Client Instruction: Educate patient on: Condition, Plan of Care, Risk Factors and Benefits of Fitness Program For the Purpose of:: To facilitate caregiver knowledge, To improve self management and To prevent re-injury Therapeutic Exercise to Include: Strength training, Balance training, Coordination, Body mechanics, Postural training, Flexibilty training and via [employer] Balance Mas For the Purpose of:: To improve nutrient delivery to tissue, To increase oxygenation perfusion, To improve muscle performance and motor function, To improve ability to perform ADL's, To improve balance and To improve safety with gait Text: Thank you for the opportunity to evaluate your patient. For Medicare and Medicare HMO plans, please review the plan of care and approve it. It will need to be FAXED BACK to us at [phone] for Medicare purposes. For Medicare only, by signing this I certify the plan of care. Please let me know if there are questions or concerns regarding this plan of care. Physician Signature: Date:
--- NOTE | 2024-08-09 13:35 | HP.PTCOM_ITS ---
PT Communication Note 08/09/[address] Michael Cortez MD , Thank you for the referral of Hill to [facility] for balance assessment. I have enclosed a copy of the results for your review. In summation, he scored poorly on the posterior and right weight shifting on the Limits of Stability Test. his center of gravity is malaligned in the forward direction. He scored lowly on the Modified CTSIB in the eyes closed portions including 4 LOB in the eyes closed and foam condition. With these results in mind, we will see him 2x/week for 6 weeks for balance related treatments and activities referred to in his initial evaluation. Thank you for this referral. Sincerely, NATE MartinT, OCS, CSCS Contact Information
--- NOTE | 2024-10-03 14:25 | HP.PTDCSUM ---
Discharge Summary D/C summary: It has been my pleasure to treat GEORGE MCCLAIN referred by Dr. Michael Cortez MD, with the diagnosis of balance training, poor eye sight for a total of 14 visit(s). Discharge Date: 10/03/24 Please see the following information for a summary of their discharge status. Subjective Subjective: Pt. reports being 65% better overall. He reports he is walking better, but is still working on wt. shifting for golf. he reports being I with balance HEP and has joined gym to continue to work on strengthening of BLEs. Overall Improvement % Improvement: 65 Objective Objective/Function: R ankle EVR 50.9#, L ankle EVR 49.4#. L: hip abd 34.5#. R hip abd 46.9# I had saleem swinging a golf club with good wt. shift without LOB. I talked to him about staying fwrd to use his plantar flexors to help stabilize. If he gets too far retro he tends to have to step to regain balance. He did very well with testing. No major issues noted with TUG or FGA. His stability with his golf swings are much improved. Pt. to work on exercises and gym exercises on his own at this point in time. Goals Goal 1:: LTG: Pt. to be I with HEP for LE strength and balance. Goal Progress: Goal Met Goal 2:: LTG: Pt. to have increased glute medius and ankle eversion strength to 5/5. Goal Progress: Goal Met Goal 3:: LTG: to have improved FGA to 28/30 indicating improved balance. Goal Progress: Goal Met Goal 4:: STG: pt. to have balance performance test completed. Goal Progress: Goal Met Goal 5:: LTG: Pt. to have improved TUG to less than 10sec indicating good stability. Goal 6:: LTG: Pt. to complete all simulated golf swings without LOB. Goal Progress: Goal Met Plan Plan: Re-assess with Ulysses Wright PT, DPT. D/C Information Discharge Comments: Pt. is overall doing better. He moore improved balance and has met all goals. He plans to take balance activities and gym exercises to continue working on. Pt. is I with this. He will be DC from PT as he has met all goals at this point in time. d/c sentence: If there are questions or concerns regarding this patient's physical therapy, please feel free to call me at [phone]. Thank you for the referral of this patient. Sincerely, Ulysses Wright, DPT Balance/Gait/Functional tests Balance/Special Test Scores Functional Gait Assessment Score: 28 % Disability: 6.6700 Lower Extremity Functional Score: 61 TUG Test Time Seconds: 11.5 Tug Test: <20 sec.=mostly independent 30 Second Chair Rise Test Seconds: 19 6 Minute Walk Test: 816 feet no AD Improvement % Improvement: 65
== END 2024-10-03 16:18 | disposition home or self-care (01) ==
LOC: PT 13:30
PROVIDERS: PCP Family Medicine; Referring Provider Family Medicine; Visit Provider Family Medicine
DX: R26.89 Other abnormalities of gait and mobility (principal); G62.9 Polyneuropathy, unspecified
CPT/HCPCS: 97110; 97161; 97530; 97750

== ENCOUNTER 2024-11-21 10:06 | Outpatient (RCR) | payer MEDICARE, SELFPAY ==
[2024-08-24 04:53] VITALS: BMI 29.6
[2024-10-31 13:55] LABS: International Normalized Ratio 1.6; Prothrombin Time (Protime)PT. 18.9 SECONDS (11.7-14.9)
[2024-10-31 14:20] LABS: Pro- Brain NATRIURETIC PEPTIDE 1436 pg/mL (<=1800)
[2024-11-04 06:25] LABS: INR Fingerstick 2.2; Prothrombin Time Fingerstick 23.9 SEC (11.7-14.9)
[2024-11-21 10:21] LABS: INR Fingerstick 4.9; Prothrombin Time Fingerstick 47.6 SEC (11.7-14.9)
[2024-11-21 10:38] LABS: Prothrombin Time (Protime)PT. 45.2 SECONDS (11.7-14.9)
[2024-11-21 11:18] LABS: International Normalized Ratio 4.7
== END 2024-11-21 18:00 | disposition home or self-care (01) ==
LOC: LAB 10:06
PROVIDERS: Family Provider Family Medicine; PCP Family Medicine; Referring Provider Internal Medicine Cardiovascular Disease; Visit Provider Internal Medicine Cardiovascular Disease
DX: I48.11 Longstanding persistent atrial fibrillation (principal); Z95.2 Presence of prosthetic heart valve; Z79.01 Long term (current) use of anticoagulants
CPT/HCPCS: 36415; 36416; 83880; 85610

== ENCOUNTER → 2024-11-29 | Outpatient (CLI) | payer MEDICARE, SELFPAY ==
--- NOTE | 2024-11-29 15:46 | CT_ITS ---
PROCEDURE: CHEST WITHOUT CONTRAST 11/29/2024 REASON FOR EXAM: PULMONARY HYPERTENSION, UNSPECIFIED TECHNIQUE: Chest CT without contrast. Coronal and Sagittal reconstruction series were provided. One or more dose reduction techniques were used (e.g., Automated exposure control, adjustment of the mA and/or kV according to patient size, use of iterative reconstruction technique RADIATION DOSE SUMMARY: CTDlvol: 369.96 mGy DLP: 369.96 mGycm COMPARISON: None available FINDINGS: Hardware: None Lymph nodes: Several minimally prominent mediastinal lymph nodes Heart and Vasculature: The heart is moderately enlarged. The great vessels are normal in size and caliber. Calcified atherosclerotic plaque within the thoracic aorta. Coronary Artery Calcifications: Coronary artery calcification. Lungs and Airways: Central airways are patent. Minimal upper lobe predominant centrilobular emphysematous changes within bilateral lungs. There are subpleural reticular opacities within the bilateral lungs, likely early fibrosis. Mild lower lobe predominant bronchiectasis. Pleura: No pleural effusion or pneumothorax. Upper Abdomen: Unremarkable Bones: No aggressive osseous lesions. No acute fractures. Multilevel degenerative proliferative changes throughout the thoracic spine. [id number] kyphosis. CT/Chest without Contrast IMPRESSION: 1. Coronary artery calcification (CAC) is present 2. There are subpleural reticular opacities within bilateral lungs, likely juan luis y fibrosis. 3. Mild lower lobe predominant bronchiectasis. 4. Minimal upper lobe predominant centrilobular emphysematous changes within bi lateral lungs. Reading Location: [facility]
== END | disposition home or self-care (01) ==
LOC: CT 15:43
PROVIDERS: PCP Family Medicine; Referring Provider Internal Medicine Pulmonary Disease; Visit Provider Internal Medicine Pulmonary Disease
DX: I27.20 Pulmonary hypertension, unspecified (principal)
CPT/HCPCS: 71250

== ENCOUNTER → 2024-12-06 | Outpatient (CLI) | payer MEDICARE, SELFPAY ==
[2024-12-06 12:39] LABS: Absolute Lymphocyte Count 1.07 X10^3/uL (0.83-4.51); Absolute Neutrophil Count 7.4 X10^3/uL (2.0-7.7); Basophil# 0.08 X10^3/uL; Basophil% 0.8 % (0-1); Eosinophil# 0.19 X10^3/uL; Hematocrit 39.5 % (40-54); Lymphocyte # 1.07 X10^3/ul (0.83-4.51); Lymphocyte % 11.1 % (19-41); Mean Corp Hgb Conc 32.9 g/dL (32-36); Mean Corpuscular Hgb 31.5 pg (27.0-32.0); Mean Corpuscular Volume 95.6 fL (80-94); Mean Platelet Vol. 9.8 fl (6.2-12.0); Monocyte# 0.89 X10^3/uL; Monocyte% 9.2 % (0-10); NRBC Flagged by Analyzer 0 % (0-5); Neutrophil # 7.38 X10^3/uL (2.7-7.7); Neutrophil % 76.4 % (47-70); Platelet Count 223 K/mm3 (150-450); RBC Distribution Width CV 14.8 % (11.6-14.6); RBC Distribution Width SD 50.8 fl (35.1-43.9); Red Blood Count 4.13 M/mm3 (4.6-6.2); White Blood Count 9.7 K/mm3 (4.4-11.0)
[2024-12-06 12:49] LABS: Erythrocyte Sedimentation Rate 10 mm/hr (0-20)
[2024-12-06 13:22] LABS: CRP 9.87 mg/L (0.0-3.0); Rubella IgG REAC (Nonreactive)
[2024-12-07 15:08] LABS: Angiotensin Convert Enzyme 42 U/L (14-82); Anti-Nuclear Antibody Test Negative (.); Anti-dsDNA Ab <1 IU/mL (0-9); CCP IgG Antibodies 7 units (0-19); Cytoplasmic Ab (C-ANCA) <1:20 titer (Neg:<1:20); Perinuclear Ab (P-ANCA) <1:20 titer (Neg:<1:20); RNP Ab <0.2 AI (0.0-0.9); SJOGREN'S Anti-SS-A test < 0.2 AI (0.0-0.9); SJOGREN'S Anti-SS-B test < 0.2 AI (0.0-0.9)
== END | disposition home or self-care (01) ==
LOC: MTLAB 10:30
PROVIDERS: PCP Family Medicine; Referring Provider Internal Medicine Pulmonary Disease; Visit Provider Internal Medicine Pulmonary Disease
DX: J84.10 Pulmonary fibrosis, unspecified (principal)
CPT/HCPCS: 36415; 82164; 83516; 85025; 85652; 86037; 86038; 86140; 86200; 86225; 86235; 86762

== ENCOUNTER 2024-12-16 15:16 | Outpatient (RCR) | payer MEDICARE, SELFPAY ==
[2024-11-21 22:54] VITALS: BMI 29.6
[2024-11-25 10:47] LABS: Prothrombin Time (Protime)PT. 32.1 SECONDS (11.7-14.9)
[2024-12-16 15:24] LABS: INR Fingerstick 3.1; Prothrombin Time Fingerstick 31.7 SEC (11.7-14.9)
== END 2024-12-21 18:00 | disposition home or self-care (01) ==
LOC: LAB 15:16
PROVIDERS: Family Provider Family Medicine; PCP Family Medicine; Referring Provider Internal Medicine Cardiovascular Disease; Visit Provider Internal Medicine Cardiovascular Disease
DX: I48.11 Longstanding persistent atrial fibrillation (principal); Z95.2 Presence of prosthetic heart valve; Z79.01 Long term (current) use of anticoagulants
CPT/HCPCS: 36415; 36416; 85610

== ENCOUNTER 2024-12-22 14:31 | Outpatient (RCR) | payer MEDICARE, SELFPAY ==
[2024-12-21 22:15] VITALS: BMI 29.6
[2024-12-22 15:22] LABS: Absolute Lymphocyte Count 1.45 X10^3/uL (0.83-4.51); Absolute Neutrophil Count 7.6 X10^3/uL (2.0-7.7); Basophil# 0.11 X10^3/uL; Eosinophil# 0.65 X10^3/uL; Eosinophils% 5.8 % (0-5); Hematocrit 40.1 % (40-54); Hemoglobin 13.1 g/dL (13.0-16.5); Lymphocyte # 1.45 X10^3/ul (0.83-4.51); Mean Corp Hgb Conc 32.7 g/dL (32-36); Mean Corpuscular Hgb 29.8 pg (27.0-32.0); Mean Corpuscular Volume 91.3 fL (80-94); Mean Platelet Vol. 8.9 fl (6.2-12.0); Monocyte# 1.27 X10^3/uL; Monocyte% 11.4 % (0-10); NRBC Flagged by Analyzer 0 % (0-5); Neutrophil % 68.2 % (47-70); Platelet Count 391 K/mm3 (150-450); RBC Distribution Width CV 13.9 % (11.6-14.6); RBC Distribution Width SD 47.4 fl (35.1-43.9); Red Blood Count 4.39 M/mm3 (4.6-6.2); White Blood Count 11.2 K/mm3 (4.4-11.0)
[2024-12-22 16:15] LABS: Anion Gap 11 (5-15); BUN 18 mg/dL (4-19); BUN/Creat Ratio 17.3 RATIO (10-20); Calcium,Total 9.2 mg/dL (7.6-11.0); Carbon Dioxide 21.5 mmol/L (21.0-32.0); Chloride 108 mmol/L (98-108); Creatinine, Serum 1.06 mg/dL (0.70-1.20); EST Glomerular Filtration Rate 68 (>60); Glucose 105 mg/dL (70-99); Potassium 3.6 mmol/L (3.3-5.1); Pro- Brain NATRIURETIC PEPTIDE 954 pg/mL (<=1800); Sodium Level 140 mmol/L (133-145)
== END 2024-12-22 18:00 | disposition home or self-care (01) ==
LOC: LAB 14:31
PROVIDERS: Family Provider Family Medicine; PCP Family Medicine; Referring Provider Internal Medicine Cardiovascular Disease; Visit Provider Internal Medicine Cardiovascular Disease
DX: I48.11 Longstanding persistent atrial fibrillation (principal); Z95.2 Presence of prosthetic heart valve; Z79.01 Long term (current) use of anticoagulants; R06.02 Shortness of breath; J84.10 Pulmonary fibrosis, unspecified
CPT/HCPCS: 36415; 80048; 83880; 85025

== ENCOUNTER → 2025-01-04 | Outpatient (CLI) | payer MEDICARE, SELFPAY ==
[2025-01-04 16:11] LABS: Absolute Lymphocyte Count 2.08 X10^3/uL (0.83-4.51); Basophil# 0.12 X10^3/uL; Eosinophil# 0.29 X10^3/uL; Eosinophils% 2.3 % (0-5); Hematocrit 44.3 % (40-54); Hemoglobin 14.3 g/dL (13.0-16.5); Lymphocyte # 2.08 X10^3/ul (0.83-4.51); Lymphocyte % 16.5 % (19-41); Mean Corp Hgb Conc 32.3 g/dL (32-36); Mean Corpuscular Hgb 29.7 pg (27.0-32.0); Mean Corpuscular Volume 91.9 fL (80-94); Mean Platelet Vol. 9.7 fl (6.2-12.0); Monocyte# 1.07 X10^3/uL; Monocyte% 8.5 % (0-10); NRBC Flagged by Analyzer 0 % (0-5); Neutrophil # 8.97 X10^3/uL (2.7-7.7); Neutrophil % 71.1 % (47-70); Platelet Count 316 K/mm3 (150-450); RBC Distribution Width CV 14.6 % (11.6-14.6); RBC Distribution Width SD 49.1 fl (35.1-43.9); Red Blood Count 4.82 M/mm3 (4.6-6.2); White Blood Count 12.6 K/mm3 (4.4-11.0)
[2025-01-04 16:23] LABS: Erythrocyte Sedimentation Rate 17 mm/hr (0-20)
[2025-01-04 16:50] LABS: ALB/GLOB Ratio 1.3 RATIO (0.9-2.4); AST(SGOT) 47 U/L (<=37); Alanine Aminotransfer ALT/SGPT 35 U/L (<=46); Albumin, Serum 4.1 g/dL (3.4-4.8); Alkaline Phosphatase 135 U/L (40-129); Anion Gap 13 (5-15); BUN 26 mg/dL (4-19); BUN/Creat Ratio 21.1 RATIO (10-20); Calcium,Total 9.8 mg/dL (7.6-11.0); Carbon Dioxide 20.6 mmol/L (21.0-32.0); Chloride 105 mmol/L (98-108); Creatinine, Serum 1.21 mg/dL (0.70-1.20); EST Glomerular Filtration Rate 58 (>60); Globulin 3.1 g/dL (2.2-4.2); Glucose 146 mg/dL (70-99); Potassium 4.3 mmol/L (3.3-5.1); Protein, Total 7.3 g/dL (5.9-8.4); Sodium Level 139 mmol/L (133-145); Total Bilirubin 1.05 mg/dL (0.00-1.30)
[2025-01-04 16:57] LABS: CRP < 3.00 mg/L (0.0-3.0)
[2025-01-06 04:07] LABS: Prealbumin 21 mg/dL (9-32)
== END | disposition home or self-care (01) ==
LOC: MFPLAB 12:14
PROVIDERS: PCP Family Medicine; Referring Provider Family Medicine; Visit Provider Family Medicine
DX: J84.10 Pulmonary fibrosis, unspecified (principal)
CPT/HCPCS: 36415; 80053; 84134; 85025; 85652; 86140

== ENCOUNTER → 2025-01-21 | Outpatient (CLI) | payer MEDICARE, SELFPAY ==
[2025-01-21 13:20] LABS: International Normalized Ratio 3.2; Prothrombin Time (Protime)PT. 33.8 SECONDS (11.7-14.9)
[2025-01-21 14:02] LABS: AST(SGOT) 47 U/L (<=37); Alanine Aminotransfer ALT/SGPT 39 U/L (<=46); Albumin, Serum 4.5 g/dL (3.4-4.8); Alkaline Phosphatase 104 U/L (40-129); Bilirubin, Direct 0.48 mg/dL (0.00-0.30); Globulin 3.1 g/dL (2.2-4.2); Protein, Total 7.6 g/dL (5.9-8.4); Total Bilirubin 1.28 mg/dL (0.00-1.30)
[2025-01-24 15:08] LABS: Immunofixation Urine Comment: (.)
[2025-01-24 16:09] LABS: Albumin 3.8 g/dL (2.9-4.4); Alpha-1-Globulins 0.3 g/dL (0.0-0.4); Alpha-2-Globulins 0.8 g/dL (0.4-1.0); Immunoglobulin A 244 mg/dL (61-437); Immunoglobulin G 1059 mg/dL (603-1613); Immunoglobulin M 52 mg/dL (15-143); PROEL- TOTAL PROTEIN 7.2 g/dL (6.0-8.5)
== END | disposition home or self-care (01) ==
LOC: LAB 13:02
PROVIDERS: Internal Medicine Cardiovascular Disease; Psychiatry & Neurology Neurology; PCP Family Medicine; Visit Provider Internal Medicine Pulmonary Disease
DX: J84.10 Pulmonary fibrosis, unspecified (principal); G62.9 Polyneuropathy, unspecified; Z95.2 Presence of prosthetic heart valve; Z79.01 Long term (current) use of anticoagulants
CPT/HCPCS: 36415; 80076; 82784; 84165; 85610; 86334; 86335

== ENCOUNTER → 2025-02-06 | Outpatient (CLI) | payer MEDICARE, SELFPAY ==
--- NOTE | 2025-02-06 12:54 | ECHOD_ITS ---
Reason For Study : CONGESTIVE HEART FAILURE Procedure This was a 2D Doppler, Color Flow transthoracic echocardiogram. Exam performed in department. Left Ventricle Normal LV size. Mild concentric left ventricular hypertrophy. The left ventricular ejection fraction is 60 %. Stage 3 diastolic dysfunction. No regional wall motion abnormalities noted. Right Ventricle Normal RV size. Normal systolic function. Atria The left atrium is mildly enlarged. The right atrium is mildly enlarged. Mitral Valve There is moderate mitral annular calcification. Trivial eccentric mitral valve insufficiency. Tricuspid Valve Normal tricuspid valve. Mild to moderate (1-2+) tricuspid valve insufficiency. Pulmonary artery systolic pressure is 43 mmHg. Aortic Valve Peak aortic valve gradient 23 mmHg. Mean aortic valve gradient 12 mmHg. Stable appearing mechanical aortic valve apparatus. Pulmonic Valve Normal pulmonic valve. Great Vessels Normal aortic root. The pulmonary artery is normal size. Inferior vena cava collapse with respiration. Pericardium/Pleural No pericardial effusion. MMode/2D Measurements & Calculations LVIDd: 3.9 cm IVSd: 1.4 cm LVOT diam: 2.0 cm LVIDs: 1.6 cm LVPWd: 1.2 cm LVOT area: 3.1 cm2 RVDd: 3.9 cm FS: 57.9 % asc Aorta Diam: 4.2 cm LAV(MOD-bp): 75.0 ml LVAd ap4: 17.3 cm2 LAV(MOD-bp) Indexed: 40.7 ml/m2 LVLd ap4: 6.8 cm LAV(MOD-sp2): 79.5 ml EDV(MOD-sp4): 37.0 ml LAV(MOD-sp4): 65.9 ml EDV(sp4-el): 37.4 ml LVAs ap4: 10.0 cm2 LVLs ap4: 5.9 cm ESV(MOD-sp4): 14.7 ml ESV(sp4-el): 14.5 ml EF(MOD-sp4): 60.3 % EF(sp4-el): 61.3 % LVAd ap2: 16.7 cm2 SV(MOD-sp4): 22.3 ml SV(MOD-sp2): 22.9 ml LVLd ap2: 6.8 cm SI(MOD-sp4): 12.1 ml/m2 SI(MOD-sp2): 12.4 ml/m2 EDV(MOD-sp2): 33.0 ml EDV(sp2-el): 35.0 ml LVAs ap2: 8.1 cm2 LVLs ap2: 5.6 cm ESV(MOD-sp2): 10.1 ml ESV(sp2-el): 9.9 ml EF(MOD-sp2): 69.3 % SV(sp4-el): 22.9 ml Ao sinus diam: 3.[address] Junction: 2.7 cm LA dimension(2D): 5.4 cm LA A4 area: 23.9 cm2 RA A4 area: 22.2 cm2 TAPSE: 0.95 cm Time Measurements MV dec time: 0.25 sec Doppler Measurements & Calculations MV E max stanley: 107.2 cm/sec Lat Peak E' Stanley: 14.1 cm/sec Med Peak E' Stanley: 5.6 cm/sec MV A max stanley: 45.9 cm/sec E/E' lat: 7.6 E/E' med: 19.0 MV E/A: 2.3 MV dec slope: 430.8 cm/sec2 Ao V2 max: 239.2 cm/sec LV V1 max: 122.7 cm/sec Ao max P.9 mmHg LV V1 max P.0 mmHg Ao V2 mean: 157.9 cm/sec LV V1 mean P.8 mmHg Ao mean P.6 mmHg LV V1 mean: 93.9 cm/sec Ao V2 VTI: 41.4 cm LV V1 VTI: 21.4 cm AV (velocity ratio): 0.52 MALU(I,D): 1.6 cm2 MALU(V,D): 1.6 cm2 SV(LVOT): 66.0 ml PA V2 max: 129.7 cm/sec TR max stanley: 317.6 cm/sec TR max P.4 mmHg ECHO/Echo Complete Interpretation Summary Normal LV size. Mild concentric left ventricular hypertrophy. The left ventricular ejection fraction is 60 %. Stage 3 diastolic dysfunction. Stable appearing mechanical aortic valve apparatus. Mean aortic valve gradient 12 mmHg. Trivial eccentric mitral valve insufficiency. Ordering Physician: Albert Mojica Referring Physician: Michael Cortez MD Performed By: Cha Mccatry RDCS
== END | disposition home or self-care (01) ==
LOC: CVS 12:48
PROVIDERS: PCP Family Medicine; Referring Provider Internal Medicine Cardiovascular Disease; Visit Provider Internal Medicine Cardiovascular Disease
DX: Z95.2 Presence of prosthetic heart valve (principal)
CPT/HCPCS: 93306

== ENCOUNTER → 2025-02-07 | Outpatient (CLI) | payer MEDICARE, SELFPAY ==
[2025-02-07 13:34] LABS: Magnesium 1.7 mg/dL (1.5-2.2)
[2025-02-07 13:36] LABS: Anion Gap 13 (5-15); BUN 42 mg/dL (4-19); BUN/Creat Ratio 33.2 RATIO (10-20); Calcium,Total 9.5 mg/dL (7.6-11.0); Chloride 100 mmol/L (98-108); Creatinine, Serum 1.27 mg/dL (0.70-1.20); EST Glomerular Filtration Rate 55 (>60); Glucose 125 mg/dL (70-99); Sodium Level 138 mmol/L (133-145)
== END | disposition home or self-care (01) ==
PROVIDERS: PCP Family Medicine; Referring Provider Internal Medicine Cardiovascular Disease; Visit Provider Internal Medicine Cardiovascular Disease
DX: J84.10 Pulmonary fibrosis, unspecified (principal); R06.02 Shortness of breath
CPT/HCPCS: 36415; 80048; 83735

== ENCOUNTER → 2025-03-02 | Outpatient (CLI) | payer MEDICARE, SELFPAY ==
--- NOTE | 2025-03-02 13:00 | CDU_ITS ---
Reason For Study Reason For Study: Amaurosis fugax Rt. Velocities/BP Lt. Velocities/BP Prox CCA 89.1/11.6 cm/sec. Prox CCA 161.3/6 cm/sec. Mid CCA 78.7/13.5 cm/sec. Mid CCA 98.6/6.5 cm/sec. Dist CCA 65.5/10.7 cm/sec. Dist CCA 87.6/10.2 cm/sec. Prox ICA 54.2/11.3 cm/sec. Prox ICA 93.7/15.1 cm/sec. Mid ICA 65.5/12.6 cm/sec. Mid ICA 75.3/22.5 cm/sec. Dist ICA 98.6/16.3 cm/sec. Dist ICA 75.3/15.1 cm/sec. Rt. ICA/CCA = 1.25. Lt. ICA/CCA = 0.95. Prox ECA 90.5 cm/sec. Prox ECA 113.3/5.3 cm/sec. Rt. Vert. 55.3/12.4 cm/sec. Lt. Vert. 55.3/11.3 cm/sec. Right Extracranial There is homogeneous, smooth atherosclerotic plaque noted in the right common carotid artery. There is heterogeneous, irregular atherosclerotic plaque noted in the right internal carotid artery. There is intimal thickening but no significant atherosclerotic plaque noted in the right external carotid artery. Antegrade flow is noted in the right vertebral artery. Left Extracranial There is heterogeneous, irregular atherosclerotic plaque noted in the left common carotid artery. There is heterogeneous, irregular atherosclerotic plaque noted in the left internal carotid artery. There is heterogeneous, irregular atherosclerotic plaque noted in the left external carotid artery. Antegrade flow is noted in the left vertebral artery. Procedure Carotid Duplex 15709. This is a Carotid Duplex examination using B-mode, color flow and specral Doppler. Exam performed in department. VL/Carotid Duplex Ultrasound Interpretation Summary Mild (<50%) stenosis right extracranial internal carotid. Mild (<50%) stenosis left extracranial internal carotid. Patent and antegrade vertebrals bilaterally. Mild (<50%) stenosis right extracr anial internal carotid. Mild (<50%) stenosis left extracranial internal carotid. Patent and antegrade vertebrals bilaterally. Limited due to calcific shadowing, alternative imaging may be beneficial. Ordering Physician: Smith Pichardo Referring Physician: Michael Cortez MD Performed By: Steph Rivera RVT
== END | disposition home or self-care (01) ==
LOC: CVS 12:56
PROVIDERS: PCP Family Medicine; Referring Provider Ophthalmology; Visit Provider Ophthalmology
DX: G45.3 Amaurosis fugax (principal)
CPT/HCPCS: 93880

== ENCOUNTER → 2025-03-10 | Outpatient (CLI) | payer MEDICARE, SELFPAY ==
[2025-03-10 12:21] LABS: AST(SGOT) 33 U/L (<=37); Alanine Aminotransfer ALT/SGPT 19 U/L (<=46); Albumin, Serum 4.0 g/dL (3.4-4.8); Alkaline Phosphatase 73 U/L (40-129); Bilirubin, Direct 0.41 mg/dL (0.00-0.30); Globulin 2.3 g/dL (2.2-4.2); Pro- Brain NATRIURETIC PEPTIDE 1660 pg/mL (<=1800)
== END | disposition home or self-care (01) ==
LOC: LAB 10:39
PROVIDERS: PCP Family Medicine; Referring Provider Internal Medicine Pulmonary Disease; Visit Provider Internal Medicine Pulmonary Disease
DX: J84.10 Pulmonary fibrosis, unspecified (principal); I27.20 Pulmonary hypertension, unspecified; R06.00 Dyspnea, unspecified
CPT/HCPCS: 36415; 80076; 83880

== ENCOUNTER 2025-03-17 08:40 | Outpatient (RCR) | payer MEDICARE, SELFPAY ==
[2025-01-22 04:35] VITALS: BMI 29.6
[2025-03-06 14:05] LABS: Prothrombin Time (Protime)PT. 45.7 SECONDS (11.7-14.9)
[2025-03-13 10:55] LABS: INR Fingerstick 4.1
[2025-03-13 11:24] LABS: Prothrombin Time (Protime)PT. 40.9 SECONDS (11.7-14.9)
[2025-03-17 08:49] LABS: INR Fingerstick 3.1
== END 2025-03-23 21:37 | disposition home or self-care (01) ==
LOC: LAB 08:40
PROVIDERS: Family Provider Family Medicine; PCP Family Medicine; Referring Provider Internal Medicine Cardiovascular Disease; Visit Provider Internal Medicine Cardiovascular Disease
DX: Z79.01 Long term (current) use of anticoagulants; Z95.2 Presence of prosthetic heart valve; I48.11 Longstanding persistent atrial fibrillation
CPT/HCPCS: 36415; 36416; 85610

== ENCOUNTER → 2025-04-17 | Outpatient (CLI) | payer MEDICARE, SELFPAY ==
--- OUTSIDE RECORDS SUMMARY | 2025-04-17 07:03 | XMS RPT_ITS | CCD ---
Author Organization 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 Name Role Phone [facility] Nurse Unavailable Unavailable [facility] Nurse Unavailable Unavailable MD Galina, Albert Valdivia Unavailable Estefania Bernard Y Unavailable Estefania Bernard Y Unavailable Forrest, RN, Yael Adair Unavailable Unavailjustino Badillo RN, Kelli L Unavailable Justino RN, Kelli L Unavailable [phone] [facility] Nurse Unavailable Unavailable Lorin Kiser Y Unavailable Unavailable Justino RN, Kelli L Unavailable [phone] Justino RN, Kelli L Unavailable Justino RN, Kelli L Unavailable [phone] Forrest RN, Yael Adair Unavailable Unavailjustino Badillo RN, Kelli L Unavailable SHELLY Clayton, Yael Adair Unavailable Unavailabl e Estefania Bernard Unavailable Estefania Bernard Y Unavailable Dr. Fernando Cortez Primary Care Provider Dr. Fernando Cortez Referring Provider Dr. Albert Mojica Attending Provider Dr. Fernando Cortez Primary Care Provider [phone] Dr. Fernando Cortez Referring Provider Dr. Albert Mojica Attending Provider Bashir Cortez MD Primary Care Provider Dr. Fernando Cortez Primary Care Provider [phone] Dr. Fernando Cortez Referring Provider Ortega ARECHIGA, PA Kelli Adair Attending Provider BASHIR CORTEZ Primary Care Unavailabl e Dr. Albert Mojica Attending Provider [phone] Albert Mojica Unavailable FEGATELLI, SWETA Referring Unavailable BASHIR CORTEZ Primary Care Unavailabl e FEGATELLI, SWETA Referring Unavailable DENICE JANE Attending Unavailable BASHIR CORTEZ Primary Care Unavailabl e FEGATELLI, SWETA Referring Unavailable BASHIR CORTEZ Primary Care Unavailabl e BASHIR CORTEZ Primary Care Unavailabl e FEGATELLI, SWETA Referring Unavailable JOSE CORONA Attending Unavailable ALLISON LOPEZ Attending Unavailable BASHIR CORTEZ Primary Care Unavailabl e GEORGE GALLOWAY Consulting Unavailable GRIS, DHIMANT Admitting Unavailable REYES, BANDAR JAGRUTI Referring Unavailable BASHIR CORTEZ Primary Care Unavailabl e FEGATELLI, SWETA Attending Unavailable GURINDER CORONA ([facility]) Referring Unavaila ble BASHIR CORTEZ Primary Care Unavailabl e GURINDER CORONA ([facility]) Referring Unavaila ble BASHIR CORTEZ Referring Unavailabl e BASHIR CORTEZ Primary Care Unavailabl e GEORGE GALLOWAY Attending Unavailable BASHIR CORTEZ Primary Care Unavailabl e FEGATELLI, SWETA Attending Unavailable FARRAH, SWETA Referring Unavailable Dr. Fernando Cortez Primary Care Provider Dr. Fernando Cortez Referring Provider Dr. Albert Mojica Attending Provider [phone] Fernando Cortez Primary Care Provider Dr. Fernando Cortez Referring Provider Dr. Albert Mojica Attending Provider [phone] Bashir Cortez MD Primary Care Provider Albert Mojica MD Unavailable Dr. Fernando Cortez Primary Care Provider Dr. Fernando Cortez Referring Provider Dr. Albert Mojica Attending Provider Dr. Mike De Jesus Attending Provider Dr. Fernando Cortez Primary Care Provider Dr. Fernando Cortez Referring Provider Dr. Mike De Jesus Attending Provider [phone] Bashir Cortez Primary Care Provider Dr. Bashir Cortez Referring Provider Dr. Chris Bradford Attending Provider [phone] Jacobo Oliveira Attending Provider HAWK Dewey Attending Provider BASHIR CORTEZ Primary Care UnavailSHERLYN Garvin Attending Unavailable MIHAELA WOODS Attending Unavailable BASHIR CROTEZ Primary Care UnavailASPEN Reyes Attending Unavailable BASHIR CORTEZ Primary Care Dr. Bashir Carrillo MD Primary Care Provider Dr. Albert Mojica MD Attending Provider Dr. Albert Mojica MD Referring Provider Dr. Ana Laura Cho MD Other Provider Dr. Chris Bradford MD Other Provider Kelli Gill Other Provider Dr. Bashir Cortez MD Attending Provider Dr. Bashir Cortez MD Referring Provider Dr. George Hood MD, V Other Provider Dr. George Hood MD, V Attending Provider Dr. George Hood MD, V Referring Provider Dr. Bashir Cortez MD Primary Care Provider Dr. Albert Mojica MD Attending Provider [phone] Galina WAGONER, Dr. Price Referring Provider [phone] Marquis WAGONER, Dr. Du Other Provider [phone] Suzette WAGONER, Dr. Perez Other Provider Ortega ARECHIGA, Kelli Adair Other Provider [phone] Suzette WAGONER, Dr. Perez Attending Provider Diego WAGONER, Dr. Rodriguez Primary Care Provider Diego WAGONER, Dr. Rodriguez Referring Provider Diego WAGONER, Dr. Rodriguez Attending Provider Kylee WAGONER, Dr. Mtz Attending Provider Kylee WAGONER, Dr. Mtz Referring Provider Liza WAGONER, Dr. Mckeon Attending Provider Ortega ARECHIGA, Kelli Adair Attending Provider Diego WAGONER, Dr. Rodriguez Primary Care Provider Galina WAGONER, Dr. Price Attending Provider Galina WAGONER, Dr. Price Referring Provider [phone] Marquis WAGONER, Dr. Du Other Provider [phone] Suzette WAGONER, Dr. Perez Other Provider [phone] Ortega ARECHIGA, Kelli Adair Other Provider [phone] Erwin WAGONER, Dr. George Sen Other Provider Sibilia, George V Attending Unavailable Sibilia, George V Referring Unavailable Ranney, Christopher Primary Care Unavailable Sibilia George V Attending Unavailable Sibilia, George V Referring Unavailable Ranney, Christopher Primary Care Unavailable Ranney, Christopher Referring Unavailable Elizabeth León NP Attending Unavailable Ranney, Christopher Primary Care Unavailable Ranney, Christopher Referring Unavailable Ranney, Christopher Primary Care Unavailable Bashir Cortez Attending Unavailable Godwinney, Christopher Referring Unavailable RanneyBashir Attending Unavailable Ranney, Christopher Primary Care Unavailable Sibilia, George V Attending Unavailable Ranney, Christopher Primary Care Unavailable Kelli Gill Referring Unavail able Ortega ARECHIGA, Kelli Adair Attending Unavail able [facility] Care Unavailable Galina, Albert Attending Unavailable [facility] Care Unavailable [facility] Referring Unavailable [facility] Care Unavailable Baddour, Chris Attending Unavailable Galina, Albert Attending Unavailable [facility] Care Unavailable Gurinder Deshpande NP Attending Unavailable [facility] Care Unavailable Sibilia, George V Attending Unavailable Sibilia, George V Referring Unavailable [facility] Care Unavailable Sibilia, George V Attending Unavailable Sibilia, George V Referring Unavailable [facility] Care Unavailable Kelli Gill Attending Unavail able [facility] Referring Unavailable [facility] Care Unavailable [place], [place] Attending Unavailable [facility] Referring Unavailable [facility] Care Unavailable Marquis, Ana Laura Consulting Unavailable Galina, Albert Referring Unavailable Gal[place], [place] Attending Unavailable [facility] Care Unavailable Baddour, Chris Consulting Unavailable Kelli Gill Consulting Unavail able Sibilia, George V Consulting Unavailable Ortega ARECHIGA, Kelli M Referring Unavail able Kelli Gill Attending Unavail able [facility] Unavailable Marquis, Ana Laura Consulting Unavailable Galina, Albert Attending Unavailable [place], [place] Referring Unavailable [facility] Care Unavailable Baddour, Chris Consulting Unavailable Ortega ARECHIGA, Kelli M Consulting Unavail able Ortega ARECHIGA, Kelli M Referring Unavail able Kelli Gill Attending Unavail able [facility] Care Unavailable Marquis, Ana Laura Consulting Unavailable Galina, [place] Attending Unavailable Galina, Albert Referring Unavailable [facility] Care Unavailable Baddour, Chris Consulting Unavailable Kelli Gill M Consulting Unavail able Marquis, Ana Laura Consulting Unavailable Galina, Albert Attending Unavailable [place], [place] Referring Unavailable [facility] Care Unavailable Baddour, Chris Consulting Unavailable Ortega ARECHIGA, Kelli M Consulting Unavail able Sibilia, George V Consulting Unavailable Sibilia, George V Attending Unavailable [facility] Primary Care Unavailable [facility] Referring Unavailable Baddour, Chris Attending Unavailable [facility] Care Unavailable Galina, Albert Attending Unavailable [facility] Referring Unavailable [facility] Care Unavailable Chenevey, Smith Referring Unavailable Mike De Jesus Attending Unavailable [facility] Unavailable Marquis, Ana Laura Consulting Unavailable [place], [place] Attending Unavailable [place], [place] Referring Unavailable [facility] Care Unavailable Baddour, Chris Consulting Unavailable Kelli Gill Consulting Unavail able Sibilia, George V Consulting Unavailable Galina, Albert Attending Unavailable Galina, Albert Referring Unavailable [facility] Care Unavailable [place], [place] Attending Unavailable [place], [place] Referring Unavailable [facility] Care Unavailable Louanney, Smith Referring Unavailable Louanney, Smith Attending Unavailable [facility] Care Unavailable Marquis, Ana Laura Consulting Unavailable Gal[place], [place] Referring Unavailable Gal[place], [place] Attending Unavailable [facility] Care Unavailable Baddour, Chris Consulting Unavailable Ortega ARECHIGA, Kelli Adair Consulting Unavail able Sibilia, George V Consulting Unavailable Sibilia, George V Referring Unavailable Sibilia, George V Attending Unavailable [facility] Care Unavailable Gal[place], [place] Attending Unavailable Galina, Albert Referring Unavailable Marquis, Ana Laura Consulting Unavailable [facility] Care Unavailable Baddour, Chris Consulting Unavailable Ortega ARECHIGA, Kelli Adair Consulting Unavail able Sibilia, George V Consulting Unavailable Sibilia, George V Referring Unavailable Sibilia, George V Attending Unavailable [facility] Care Unavailable Sibilia, George V Referring Unavailable Sibilia, George V Attending Unavailable [facility] Care Unavailable Allergies Allergy Classification Reported Allergen(s) Allergy Type Date of Onset Reaction(s) Facility (19 sources) nut - unspecified; Translations: [nut - unspecified] Allergy to substance 06-16-2023 Food Allergy [facility] Medications Current Medications Medication Drug Class(es) Dates Sig (Normalized) Sig (Original) [id number] 200 actuat albuterol 0.09 mg/actuat metered dose inhaler (20 sources) beta2-Adrenergic Agonist Start: 12-22-2024 Albuterol Sulfate 90 mcg/actuation HFA aerosol inhaler Active 2 NMA INHALATION 4 TIMES DAILY as needed for cough December 22, 2024 12:00am Start: 10-05-2019 End: 04-03-2020 Albuterol Sulfate 1 INHALER inhaler Discontinued 1 NMA INHALATION EVERY 6 HOURS NEEDED as needed for Sob &/Or Wheezing 1 0 October 05, 2019 1:00am April 03, 2020 1:39pm Start: 10-05-2019 End: 04-03-2020 take 1 puff(s) by inhalation every six hours as needed Albuterol Sulfate Discontinued 1 PUFF INHALATION EVERY 6 HOURS NEEDED 1 October 05, 2019 1:00am April 03, 2020 1:39pm 24 hr buPROPion hydrochloride 150 mg extended release oral tablet (18 sources) Aminoketone Start: 02-07-2025 take 1 tablet by mouth once daily Bupropion Hcl 150 mg tablet extended release 24 hr Active 150 mg PO daily February 07, 2025 12:00am Start: 12-22-2024 End: 01-09-2025 take 1 tablet by mouth once daily Bupropion Hcl 150 mg tablet extended release 24 hr Discontinued 150 mg PO daily December 22, 2024 12:00am January 09, 2025 1:29pm calcium citrate 250 mg / cholecalciferol 100 unt oral tablet (11 sources) Vitamin D Start: 12-22-2024 Calcium Citrate Malate-Vit D3 250 mg-2.5 mcg (100 unit) tablet Active 1 {tbl} PO daily December 22, 2024 12:00am dapagliflozin 10 mg oral tablet (11 sources) Sodium-Glucose Cotransporter 2 Inhibitor Start: 12-22-2024 take 1 tablet by mouth once daily in the morning Dapagliflozin Propanediol (Farxiga) 10 mg tablet Active 10 mg PO EVERY MORNING 60 4 December 22, 2024 12:00am escitalopram 20 mg oral tablet (20 sources) Serotonin Reuptake Inhibitor Start: 02-04-2022 take 1 tablet by mouth once daily Escitalopram Oxalate 20 mg tablet Active 20 mg PO DAILY September 18, 2022 4:23pm Start: 02-04-2022 End: 09-18-2022 take 10 mg by mouth once daily Escitalopram Oxalate 20 mg tablet Discontinued 10 mg PO DAILY February 04, 2022 12:00am September 18, 2022 4:28pm Start: 02-04-2022 End: 09-18-2022 take 10 mg by mouth once daily Escitalopram Oxalate Di scontinued 10 MG PO DAILY February 04, 2022 12:00am September 18, 2022 4:28pm Start: 11-01-2020 End: 02-04-2022 take 1 tablet by mouth once daily Escitalopram Oxalate 10 mg tablet Discontinued 10 mg PO DAILY November 01, 2020 1:00am February 04, 2022 2:58pm Start: 02-08-2019 End: 04-03-2020 take 1 tablet by mouth once daily Escitalopram Oxalate 10 MG tablet Discontinued 10 mg PO DAILY February 08, 2019 12:00am April 03, 2020 1:40pm depression Comment on above: Take 20 mg by mouth once daily. Fluticasone Furoate (19 sources) Corticosteroid Start: 12-23-19 take 200 ug by inhalation once daily Fluticasone Furoate (Arnuity Ellipta) 200 mcg/actuation blister with device Active 1 NMA INHALATION daily December 22, 2024 12:00am Start: 09-02-2022 End: 09-02-2023 fluticasone (FLONASE) 50 mcg /actuation nasal spray 2 sprays in each nostril daily x1 week then 1-2 sprays in each nostril daily. (use smallest dose possible for symptom control after week 1). 0 09/02/2022 09/02/2023 Active Comment on above: 2 sprays in each nos tril daily x1 week then 1-2 sprays in each nostril daily. (use smallest dose possible for symptom control after week 1). furosemide 40 mg oral tablet (20 sources) Loop Diuretic Start: 12-22-2024 take 1 tablet by mouth twice daily Furosemide 40 mg tablet Active 40 mg PO TWICE A DAY December 22, 2024 1:54pm water Start: 05-28-2020 End: 12-22-2024 take 2 tablets by mouth twice daily Furosemide 40 mg tablet Discontinued 80 mg PO TWICE A DAY 360 3 June 05, 2020 4:41pm December 22, 2024 1:56pm water Start: 05-28-2020 End: 06-05-2020 take 80 mg by mouth twice daily Furosemide Discontinue d 80 MG PO TWICE A DAY 180 May 28, 2020 9:29am June 05, 2020 4:41pm Start: 04-03-2020 End: 05-28-2020 take 2 tablets by mouth once daily in the morning Furosemide 40 mg tablet Discontinued 80 mg PO EVERY MORNING April 03, 2020 1:38pm May 28, 2020 9:29am water Start: 04-03-2020 End: 05-28-2020 take 80 mg by mouth once daily in the morning Furosemide Discontinued 80 MG PO EVERY MORNING April 03, 2020 1:38pm May 28, 2020 9:29am Start: 04-03-2020 End: 05-28-2020 take 1 tablet by mouth once daily in the evening Furosemide (Lasix) 40 mg tablet Discontinued 40 mg PO EVERY EVENING April 03, 2020 12:00am May 28, 2020 9:28am Start: 06-21-2019 End: 04-03-2020 Furosemide 40 mg tablet Discontinued 40 mg PO .COMPLEX 120 3 June 21, 2019 1:13pm August 23, 2019 3:29pm 40 mg PO in the AM and 20 mg in the afternoon; Start: 02-25-2019 End: 10-03-2019 take 1 tablet by mouth once daily in the morning Furosemide 40 mg tablet Discontinued 40 mg PO EVERY MORNING February 25, 2019 8:55am June 21, 2019 1:12pm Start: 02-25-2019 End: 06-21-2019 Furosemide (Lasix) 40 mg tab let Discontinued 20 mg PO EVERY EVENING February 25, 2019 12:00am June 21, 2019 1:13pm Start: 06-02-2018 End: 02-25-2019 take 1 tablet by mouth twice daily Furosemide 40 mg tablet Discontinued 40 mg PO TWICE A DAY 180 August 16, 2018 9:56am February 25, 2019 8:57am Start: 10-01-2017 End: 04-07-2018 take 1 tablet by mouth at breakfast Furosemide 40 mg tablet Discontinued 40 mg PO WITH BREAKFAST October 01, 2017 1:00am April 07, 2018 10:45am Start: 07-25-2016 End: 06-02-2018 take 1 tablet by mouth once daily in the morning Furosemide 40 mg tablet Discontinued 40 mg PO EVERY MORNING 90 May 13, 2018 9:46am June 02, 2018 3:33pm Comment on above: Take 80 mg by mouth twice daily. 24 hr galantamine hydrobromide 16 mg extended release oral capsule (20 sources) Start: 01-09-2025 End: 03-13-2025 take 1 capsule by mouth once daily at mealtime Galantamine 16 mg capsule,ext rel. pellets 24 hr Active 16 mg PO EVERY MORNING 30 4 March 13, 2025 4:25pm Administer with food. Start: 01-09-2025 End: 03-13-2025 take 1 capsule by mouth once daily at breakfast Galantamine 24 mg capsule,ext rel. pellets 24 hr Discontinued 24 mg PO EVERY MORNING 30 January 09, 2025 12:00am March 13, 2025 4:25pm Administer with breakfast. month and subsequent months. Start: 01-09-2025 End: 03-13-2025 take 1 capsule by mouth once daily at breakfast Galantamine 8 mg capsule,ext rel. pellets 24 hr Discontinued 8 mg PO EVERY MORNING 30 0 January 09, 2025 12:00am March 13, 2025 4:26pm Administer with breakfast. 1st month. losartan potassium 100 mg oral tablet (20 sources) Angiotensin 2 Receptor Pradeep Start: 11-13-2023 take 1 tablet by mouth once daily Losartan 100 mg tablet Active 100 mg PO DAILY November 13, 2023 12:00am increased by Dr. Cortez 11/12/2023. Start: 09-18-2022 End: 11-13-2023 take 1 tablet by mouth once daily Losartan 50 mg tablet Discontinued 50 mg PO DAILY 90 March 26, 2023 3:51pm November 13, 2023 1:13pm Start: 07-21-2022 End: 09-18-2022 take 2 tablets by mouth once daily Losartan 50 mg tablet Discontinued 100 mg PO DAILY July 21, 2022 8:15pm September 18, 2022 4:28pm Start: 07-21-2022 End: 09-18-2022 take 100 mg by mouth once daily Losartan Discontinued 100 MG PO DAILY July 21, 2022 8:15pm September 18, 2022 4:28pm Start: 02-04-2022 End: 07-21-2022 take 1 tablet by mouth once daily Losartan 50 mg tablet Discontinued 50 mg PO DAILY 90 March 27, 2022 8:22am July 21, 2022 8:16pm Start: 02-08-2019 End: 02-04-2022 take 1 tablet by mouth once daily Losartan 100 mg tablet Discontinued 100 mg PO DAILY 90 3 March 04, 2021 4:35pm February 04, 2022 2:56pm Start: 01-04-2015 End: 08-18-2018 take 1 tablet by mouth once daily Losartan 100 mg tablet Discontinued 100 mg PO daily 90 3 August 18, 2018 10:19am August 18, 2018 11:18am Comment on above: Take 50 mg by mouth once daily. lutein 20 mg oral tablet (14 sources) Start: 06-27-20 24 take 1 tablet by mouth once daily Lutein 20 mg tablet Active 20 mg PO daily June 27, 2024 1:00am give with meal/snack lutein 25 mg / zeaxanthin 5 mg oral capsule (11 sources) Start: 12-23-19 Lutein-Zeaxanthin 25-5 mg capsule Active 1 NMA PO DAILY December 22, 2024 12:00am magnesium citrate 100 mg oral tablet (14 sources) Start: 06-27-20 take 1 capsule by mouth at bedtime Magnesium Citrate 100 mg capsule Active 100 mg PO AT BEDTIME June 27, 2024 1:00am mirtazapine 15 mg oral tablet (7 sources) Start: 02-08-20 take 1 tablet by mouth at bedtime Mirtazapine 15 mg tablet Active 15 mg PO AT BEDTIME February 07, 2025 12:00am nintedanib 150 mg oral capsule (7 sources) Kinase Inhibitor Start: 02-08-20 take 1 capsule by mouth every twelve hours Nintedanib (Ofev) 150 mg capsule Active 150 mg PO Q12H February 07, 2025 12:00am spironolactone 25 mg oral tablet (11 sources) Aldosterone Antagonist Start: 12-23-19 take 1 tablet by mouth once daily Spironolactone 25 mg tablet Active 25 mg PO daily 60 3 December 22, 2024 12:00am tamsulosin hydrochloride 0.4 mg oral capsule (20 sources) alpha-Adrenergic Pradeep Start: 06-16-20 23 take 1 capsule by mouth once daily Tamsulosin 0.4 mg capsule Active 0.4 mg PO DAILY June 16, 2023 12:00am Comment on above: Take 0.4 mg by mouth once daily. Completed/Discontinued Medications Medication Drug Class(es) Dates Sig (Normalized) Sig (Original) acetaminophen / HYDROcodone (20 sources) Opioid Agonist Start: 11-07-2010 take 1 tablet by mouth twice daily VICODIN 5-500 MG TABS One tablet by mouth twice daily HYDROCODONE-ACETAM INOPHEN [id number] Allison Arguello Start: 11-07-2010 End: 12-25-2011 take 1 tablet by mouth twice daily VICODIN 5-500 MG TABS One tablet by mout h twice daily HYDROCODONE-ACETAMINOPHEN [id number] Cooper Woo MD Start: 11-07-2010 End: 12-25-2011 take 1 tablet by mouth twice daily VICODIN 5-500 MG TABS One tablet by mout h twice daily HYDROCODONE-ACETAMINOPHEN [id number] Cooper Woo MD Start: 11-07-2010 take 1 tablet by joseph th twice daily VICODIN 5-500 MG TABS One tablet by mout h twice daily HYDROCODONE-ACETAMINOPHEN [id number] Allison Arguello allopurinol 100 mg oral tablet (20 sources) Xanthine Oxidase Inhibitor Start: 05-07-2022 End: 09-18-2022 Allopurinol 100 mg tablet Discontinued 100 mg PO NEEDED as needed for Pain July 21, 2022 1:00am September 18, 2022 4:20pm Comment on above: Take 100 mg by mouth once daily. Amino Acid-Multivit W/Iron-Min (8 sources) Start: 12-30-2022 End: 11-13-2023 take 1 tablet by mouth once Amino Acid-Multivit W/Iron-Min Discontinued TABLET PO December 30, 2022 12:00am November 13, 2023 1:17pm Start: 12-30-2022 take 1 tablet by mouth once Am alberto Acid-Multivit W/Iron-Min Active TABLET PO December 29, 2022 11:00pm Start: 12-30-2022 take 1 tablet by mouth once Am alberto Acid-Multivit W/Iron-Min Active TABLET PO December 30, 2022 12:00am Amino Acid-Multivit W/Iron-Min tablet (14 sources) Start: 12-30-2022 End: 11-13-2023 Amino Acid-Multivit W/Iron-Min tablet Discontinued {tbl} PO December 30, 2022 12:00am November 13, 2023 1:17pm amiodarone hydrochloride 200 mg oral tablet (20 sources) Antiarrhythmic Start: 07-19-2014 take 2 tablets by mouth twice daily, then take 1 tablet by mouth twice daily AMIODARONE HCL 200 MG TABS Two tablets by mouth twice daily x 1 week followed by One tablet by mouth twice daily AMIODARONE HCL [id number] Angela Michael Benny BRAVO Start: 07-19-2014 End: 05-24-2015 take 1 tablet by mouth once daily AMIODARONE HCL 200 MG TABS One tablet by mouth daily AMIODARONE HCL [id number] Albert Mojica MD amLODIPine 10 mg oral tablet (20 sources) Dihydropyridine Calcium Channel Pradeep Start: 04-08-2021 End: 07-28-2022 take 1 tablet by mouth once daily Amlodipine 10 mg tablet Discontinued 10 mg PO DAILY 3 April 08, 2021 2:19pm July 28, 2022 4:57pm Start: 11-08-2020 End: 04-08-2021 take 2 tablets by mouth once daily Amlodipine 5 MG tablet Discontinued 10 mg PO DAILY November 08, 2020 7:27pm April 08, 2021 2:19pm Start: 11-08-2020 End: 04-08-2021 take 10 mg by mouth once daily Amlodipine Discontinued 10 MG PO DAILY November 08, 2020 7:27pm April 08, 2021 2:19pm Start: 01-06-2014 End: 10-06-2022 take 1 tablet by mouth once daily Amlodipine 5 mg tablet Discontinued 5 mg PO DAILY 90 3 May 28, 2020 12:00am November 08, 2020 7:27pm Start: 01-06-2014 End: 05-28-2020 take 1 tablet by mouth once daily Amlodipine 10 mg tablet Discontinued 10 mg PO DAILY 90 3 February 06, 2020 1:37pm May 28, 2020 9:28am bp Start: 11-07-2010 take 1 tablet by joseph twice daily NORVASC 2.5 MG TABS One tablet by mouth twice daily AMLODIPINE BESYLATE [id number] Cooper Woo MD Comment on above: Take 5 mg by mouth. amoxicillin 500 mg oral capsule (20 sources) Penicillin-class Antibacterial Start: 06-16-2014 End: 10-20-2017 Amoxicillin 500 MG capsule Discontinued 500 mg PO NEEDED as needed for pre-procedure June 16, 2014 12:00am October 20, 2017 6:35pm Start: 12-25-2011 End: 01-25-2015 take 4 capsules by mouth every hour AMOXICILLIN 500 MG TABS 4 capsules by mouth 1 hr prior to procedure AMOXICILLIN [id number] Albert Mojica MD aspirin 81 mg delayed release oral tablet (20 sources) Nonsteroidal Anti-inflammatory Drug Start: 11-07-2010 End: 02-10-2019 take 1 tablet by mouth at bedtime Aspirin 81 MG tablet Discontinued 81 mg PO AT BEDTIME January 12, 2014 12:00am February 10, 2019 1:30pm Start: 11-07-2010 take 1 tablet by joseph th once daily ASPIRIN 81 MG TABS One tablet by mouth daily ASPIRIN [id number] Allison Arguello Start: 11-07-2010 take 1 tablet by joseph th once daily ASPIRIN 81 MG TABS One tablet by mouth daily ASPIRIN [id number] Allison Arguello End: 10-06-2022 aspirin 81 mg chewable table t Take 81 mg by mouth. 0 10/06/2022 Discontinued (Other) Comment on above: Take 81 mg by mouth. atenolol 25 mg oral tablet (20 sources) beta-Adrenergic Pradeep Start: 01-12-2014 End: 10-06-2017 Atenolol 25 MG tablet Discontinued 12.5 mg PO DAILY January 12, 2014 12:00am October 06, 2017 3:09pm Start: 01-12-2014 End: 10-06-2017 take 12.5 mg by mouth once daily Atenolol Discontinued 12.5 MG PO DAILY January 12, 2014 12:00am October 06, 2017 3:09pm Start: 11-07-2010 End: 08-09-2014 take 1 tablet by mouth once daily ATENOLOL 25 MG TABS One tablet by mouth daily ATENOLOL [id number] Cooper Woo MD atorvastatin 40 mg oral tablet (20 sources) HMG-CoA Reductase Inhibitor Start: 09-18-2022 End: 10-13-2022 take 1 tablet by mouth once daily Atorvastatin 40 mg tablet Discontinued 40 mg PO DAILY 90 3 October 13, 2022 4:51pm October 13, 2022 5:40pm Start: 07-28-2022 End: 09-18-2022 Atorvastatin 80 mg tablet Discontinued 40 mg PO AT BEDTIME July 28, 2022 4:56pm September 18, 2022 4:21pm Start: 07-28-2022 End: 09-18-2022 take 40 mg by mouth at bedtime Atorvastatin Discontinu ed 40 MG PO AT BEDTIME July 28, 2022 4:56pm September 18, 2022 4:21pm Start: 07-25-2022 End: 07-28-2022 take 1 tablet by mouth at bedtime Atorvastatin 80 mg tablet Discontinued 80 mg PO AT BEDTIME 1 0 July 25, 2022 1:00am July 28, 2022 4:58pm Start: 07-24-2022 take 1 tablet by joseph th once daily at bedtime atorvastatin (LIPITOR) 40 mg tablet 1 tablet by ORAL/FEEDING TUBE route daily at bedtime. 30 tablet 0 07/24/2022 Active Start: 07-24-2022 End: 08-23-2022 take 40 mg by mouth once daily Atorvastatin Active 40 MG PO DAILY September 18, 2022 12:00am Comment on above: 1 tablet by ORAL/FEE DING TUBE route daily at bedtime. azithromycin 250 mg oral tablet (14 sources) Macrolide Antimicrobial Start: End: take 2-5 tablets by mouth once daily Azithromycin 250 mg tablet Discontinued 0 PO .COMPLEX 6 0 February 26, 2024 12:00am June 27, 2024 11:55am take 500 mg today (day 1), then 250 mg for 4 days (days 2-5) PO benzonatate 100 mg oral capsule (14 sources) Non-narcotic Antitussive Start: End: take 2 capsules by mouth three times daily as needed for cough Benzonatate 100 mg capsule Discontinued 200 mg PO THREE TIMES A DAY as needed for cough 30 0 February 26, 2024 12:00am June 27, 2024 11:55am cefdinir 300 mg oral capsule (20 sources) Cephalosporin Antibacterial Start: 019 End: take 1 capsule by mouth twice daily Cefdinir 300 MG capsule Discontinued 300 mg PO TWICE A DAY 8 0 February 11, 2019 12:00am February 25, 2019 8:53am cholecalciferol 0.125 mg oral capsule (20 sources) Vitamin D Start: End: take 1 capsule by mouth once daily Cholecalciferol (Vitamin D3) 125 MCG capsule Discontinued 125 ug PO DAILY October 03, 2019 1:00am June 27, 2024 4:03pm supplement take 1 tablet by mouth once [place] cholecalciferol, vitamin D3, 250 mcg (10,000 unit) tab Take 1 tablet by mouth once daily. 0 Active Comment on above: Take 1 tablet by joseph th once daily. ciclopirox 80 mg/ml topical solution (20 sources) Start: 10-01-2022 Ciclopirox (LOPROX) 8 % solution APPLY TOPICALLY TO AFFECTED TOENAIL(S) ONCE DAILY. CLEANSE TOENAILS ONCE WEEKLY WITH RUBBING ALCOHOL. 0 10/01/2022 Active Start: 07-21-2022 End: 07-28-2022 Ciclopirox 8 % solution Disc ontinued TOPICAL July 21, 2022 1:00am July 28, 2022 4:57pm Start: 07-21-2022 End: 07-28-2022 Ciclopirox Discontinued TOPI EULALIA July 21, 2022 1:00am July 28, 2022 4:57pm Comment on above: APPLY TOPICALLY TO A FFECTED TOENAIL(S) ONCE DAILY. CLEANSE TOENAILS ONCE WEEKLY WITH RUBBING ALCOHOL. donepezil hydrochloride 5 mg oral tablet (20 sources) Start: End: take 1 tablet by mouth at bedtime Donepezil 5 mg tablet Discontinued 5 mg PO AT BEDTIME 90 September 15, 2024 1:00am January 09, 2025 1:33pm Start: 06-27-2024 End: 09-15-2024 take 5 mg by mouth at bedtime Donepezil 10 mg tablet Discontinued 5 mg PO AT BEDTIME June 27, 2024 4:00pm September 15, 2024 5:37pm Start: 12-21-2023 End: 06-27-2024 take 1 tablet by mouth at bedtime Donepezil 10 mg tablet Discontinued 10 mg PO AT BEDTIME 90 3 April 11, 2024 1:30pm June 27, 2024 4:03pm Start: 11-13-2023 End: 12-21-2023 take 1 tablet by mouth at bedtime Donepezil (Aricept) 5 mg tablet Discontinued 5 mg PO AT BEDTIME November 13, 2023 12:00am December 21, 2023 7:37am 0.8 ml enoxaparin sodium 100 mg/ml prefilled syringe (20 sources) Low Molecular Weight Heparin Start: 01-20-2014 LOVENOX 80 MG/0.8ML SOLN 80 mg twice daily subcutaneously ENOXAPARIN SODIUM [id number] Albert Mojica MD Start: 01-20-2014 End: 05-23-2014 LOVENOX 80 MG/0.8ML SOLN 80 mg twice daily subcutaneously ENOXAPARIN SODIUM [id number] Kareen Bustillos RN Start: 01-20-2014 End: 05-23-2014 LOVENOX 80 MG/0.8ML SOLN 80 mg twice daily subcutaneously ALONDRAOXAPARIN SODIUM [id number] Albert Mojica MD Start: 01-20-2014 LOVENOX 80 MG/ 0.8ML SOLN 80 mg twice daily subcutaneously ENOXAPARIN SODIUM [id number] Albert Mojica MD Start: 01-20-2014 End: 05-23-2014 LOVENOX 80 MG/0.8ML SOLN 80 mg twice daily subcutaneously ENOXAPARIN SODIUM [id number] Kareen Bustillos RN fenofibric acid 105 mg oral tablet (20 sources) Peroxisome Proliferator Receptor alpha Agonist Start: 01-20-2013 End: 10-06-2017 take 1 tablet by mouth once daily Fenofibric Acid 105 MG tablet Discontinued 105 mg PO DAILY January 12, 2014 12:00am October 06, 2017 3:09pm Start: 11-07-2010 take 1 tablet by joseph th at bedtime TRILIPIX 135 MG CPDR One tablet by mouth at bedtime. CHOLINE FENOFIBRATE [id number] Cooper Woo MD 12 hr guaiFENesin 1200 mg extended release oral tablet (20 sources) Start: 10-03-2019 End: 04-03-2020 take 1 tablet by mouth every twelve hours at bedtime Guaifenesin 1,200 MG tablet extended release 12hr Discontinued 1200 mg PO AT BEDTIME October 03, 2019 1:00am April 03, 2020 1:39pm congestion Start: 02-10-2019 End: 02-25-2019 take 1 tablet by mouth twice daily Guaifenesin 1,200 MG tablet Discontinued 1200 mg PO TWICE A DAY 14 0 February 10, 2019 12:00am February 25, 2019 8:56am hydroCHLOROthiazide 25 mg oral tablet (20 sources) Thiazide Diuretic Start: 02-08-2019 End: 02-25-2019 take 1 tablet by mouth once daily Hydrochlorothiazide 25 MG tablet Discontinued 25 mg PO DAILY February 08, 2019 12:00am February 25, 2019 9:04am Start: 05-24-2015 End: 11-14-2016 take 1 tablet by mouth once daily HYDROCHLOROTHIAZIDE 25 MG TABS One tablet by mouth daily HYDROCHLOROTHIAZIDE [id number] Albert Mojica MD levETIRAcetam 750 mg oral tablet (20 sources) Start: 11-13-2023 End: 06-27-2024 take 1 tablet by mouth twice daily Levetiracetam 750 mg tablet Discontinued 750 mg PO TWICE A DAY November 13, 2023 12:00am June 27, 2024 4:02pm Start: 07-25-2022 End: 09-18-2022 take 1 tablet by mouth at bedtime Levetiracetam (Keppra) 500 mg tablet Discontinued 500 mg PO .COMPLEX July 25, 2022 1:00am September 18, 2022 4:23pm 500 mg orally am and hs X 30 days; Start: 07-24-2022 take 1 tablet by joseph th twice daily levETIRAcetam (KEPPRA) 750 mg tablet 1 tablet by ORAL/FEEDING TUBE route twice daily. 60 tablet 0 07/24/2022 Active Start: 07-24-2022 End: 08-23-2022 take 1 tablet by mouth twice daily levETIRAcetam (KEPPRA) 750 mg tablet 1 tablet by ORAL/FEEDING TUBE route twice daily. 60 tablet 0 07/24/2022 Active Comment on above: 1 tablet by ORAL/FEE DING TUBE route twice daily. levoFLOXacin 750 mg oral tablet (20 sources) Quinolone Antimicrobial Start: 11-14-19 End: 11-21-19 21 take 1 tablet by mouth once daily Levofloxacin 750 MG tablet Discontinued 750 mg PO DAILY 3 0 November 13, 2020 12:00am November 20, 2020 6:44pm lisinopril 20 mg oral tablet (20 sources) Angiotensin Converting Enzyme Inhibitor Start: 07-01-20 12 End: 10-06-19 18 take 1 tablet by mouth twice daily Lisinopril 20 MG tablet Discontinued 20 mg PO TWICE A DAY January 12, 2014 12:00am October 06, 2017 3:10pm magnesium oxide 400 mg oral tablet (20 sources) Start: 01-26-20 End: 11-13-19 take 1 tablet by mouth at breakfast Magnesium Oxide 400 mg tablet Discontinued 400 mg PO WITH BREAKFAST October 01, 2017 1:00am November 13, 2023 1:17pm supplement magnesium oxide,aspartate,citr 400 mg magnesium cap (12 sources) take 1 capsule by mouth once daily magnesium oxide,aspartate,cit r 400 mg magnesium cap Take 1 capsule by mouth once daily. 0 Active Comment on above: Take 1 capsule by [facility] once daily. 24 hr memantine hydrochloride 21 mg extended release oral capsule (20 sources) I-zsvwml-N-aspartate Receptor Antagonist Start: 12-21-19 End: 02-22-20 24 take 1 capsule by mouth once daily Memantine 14 mg capsule,sprinkle,ER 24hr Discontinued 14 mg PO DAILY 7 0 December 21, 2023 12:00am February 22, 2024 4:26pm Week #1; Begin on 01/23/24. Discontinue memantine 5mg daily. Start: 12-21-2023 End: 02-22-2024 take 1 capsule by mouth once daily Memantine 21 mg capsule,sprinkle,ER 24hr Discontinued 21 mg PO DAILY 30 3 January 21, 2024 4:50pm February 22, 2024 4:26pm Start: 12-21-2023 End: 01-21-2024 take 1 capsule by mouth once daily Memantine 28 mg capsule,sprinkle,ER 24hr Discontinued 28 mg PO DAILY 30 6 December 21, 2023 12:00am January 21, 2024 4:50pm Week #3. Begin after completing 1 week course with memantine ER 21mg daily. Start: 11-13-2023 End: 02-22-2024 take 1 tablet by mouth once daily in the morning Memantine 5 mg tablet Discontinued 5 mg PO EVERY MORNING November 13, 2023 12:00am February 22, 2024 4:26pm metOLazone 2.5 mg oral tablet (14 sources) Thiazide-like Diuretic Start: 05-25-2024 End: 06-27-2024 Metolazone 2.5 mg tablet Discontinued 2.5 mg PO .COMPLEX 3 0 May 25, 2024 12:00am June 27, 2024 11:56am 2.5 mg orally 1 tablet by mouth 30 minutes prior to first dose of Furosemide (Lasix) in the morning on 05/26, 05/27 and 05/28.; pantoprazole 40 mg delayed release oral tablet (20 sources) Proton Pump Inhibitor Start: 02-10-2019 End: 02-25-2019 Pantoprazole 40 MG tablet Discontinued 40 mg PO TWICE A DAY 60 0 February 10, 2019 12:00am February 25, 2019 8:58am 40 mg bid for 2 weeks and then once daily microencapsulated potassium chloride 20 meq extended release oral tablet (20 sources) Start: 06-27-2024 End: 12-22-2024 Potassium Chloride (Klor-Con M20) 20 mEq tablet,ER particles/crystals Discontinued 99 meq PO DAILY June 27, 2024 4:01pm December 22, 2024 2:20pm Start: 11-13-2023 End: 06-27-2024 Potassium Chloride (Klor-Con M20) 20 mEq tablet,ER particles/crystals Discontinued 20 meq PO DAILY November 13, 2023 12:00am June 27, 2024 4:03pm Start: 11-01-2020 End: 09-18-2022 take 1 tablet by mouth once daily Potassium Chloride 20 mEq tablet extended release Discontinued 20 meq PO DAILY November 01, 2020 4:23pm September 18, 2022 4:25pm Start: 04-09-2020 End: 11-01-2020 take 2 tablets by mouth once daily Potassium Chloride 20 mEq tablet extended release Discontinued 40 meq PO DAILY 180 3 April 09, 2020 5:40pm November 01, 2020 4:24pm Start: 04-09-2020 End: 11-01-2020 take 40 mEq by mouth once daily Potassium Chloride Discontinued 40 MEQ PO DAILY 180 April 09, 2020 5:40pm November 01, 2020 4:24pm Start: 02-05-2017 End: 04-09-2020 take 1 tablet by mouth once daily Potassium Chloride 20 mEq tablet extended release Discontinued 20 meq PO DAILY 90 3 February 06, 2020 1:37pm April 03, 2020 1:41pm Start: 08-28-2016 take 2 tablets by [facility] once daily POTASSIUM CHLORIDE ER 20 MEQ CR-TABS Two tablets by mouth daily POTASSIUM CHLORIDE [id number] Albert Mojica MD Start: 08-28-2016 End: 11-14-2016 take 2 tablets by mouth twice daily POTASSIUM CHLORIDE ER 20 MEQ CR-TABS Two tablets by mouth twice daily POTASSIUM CHLORIDE [id number] Kelli Badillo RN take 1 tablet by joseph once daily potassium chloride (KCL-20 ORAL) Take 1 tablet by mouth once daily. 0 Active Comment on above: Take 1 tablet by joseph once daily. potassium gluconate 2.5 meq oral tablet (20 sources) Start: 09-18-2022 End: 11-13-2023 take 1 tablet by mouth once daily Potassium Gluconate 595 mg (99 mg) tablet Discontinued 595 mg PO DAILY September 18, 2022 1:00am November 13, 2023 1:18pm potassium,chelated 99 mg oral tablet (16 sources) Start: 02-05-2017 take 1 tablet by mouth once daily as needed POTASSIUM 99 MG TABS One tablet by mouth daily as needed GLORY [id number] Yael Clayton RN Start: 02-05-2017 take 1 tablet by joseph once daily as needed POTASSIUM 99 MG TABS One tablet by mouth daily as needed GLORY [id number] Yael Clayton RN Start: 02-05-2017 take 1 tablet by joseph once daily as needed POTASSIUM 99 MG TABS One tablet by mouth daily as needed POTASSIUM [id number] Yael Clayton, SHELLY pravastatin sodium 40 mg oral tablet (20 sources) HMG-CoA Reductase Inhibitor Start: 07-28-2022 End: 09-18-2022 take 1 tablet by mouth once daily Pravastatin 40 mg tablet Discontinued 40 mg PO DAILY July 28, 2022 1:00am September 18, 2022 4:26pm Start: 11-07-2010 End: 07-25-2022 take 1 tablet by mouth once daily Pravastatin 80 mg tablet Discontinued 80 mg PO DAILY 90 March 27, 2022 2:05pm July 25, 2022 3:34pm cholesterol Comment on above: Take 40 mg by mouth once daily. predniSONE 10 mg oral tablet (20 sources) Start: 10-05-19 End: 04-03-20 take 4 tablets by mouth once daily, then take 3 tablets by mouth once daily, then take 2 tablets by mouth once daily, then take 1 tablet by mouth once daily Prednisone 10 MG tablet Discontinued 10 mg PO DIRECTED October 05, 2019 1:00am April 03, 2020 1:40pm 4 tab po qd x 3 days, 3 tab po qd x 3 days, 2 tab po qd x 3 days, 1 tab po qd x 3 days terbinafine 250 mg oral tablet (20 sources) Allylamine Antifungal Start: 12-25-19 End: 07-01-20 take 1 tablet by mouth once daily LAMISIL 250 MG TABS One tablet by mouth daily TERBINAFINE HCL [id number] Cooper Woo MD triamcinolone acetonide 1 mg/ml topical cream (8 sources) Corticosteroid Start: 08-12-20 triamcinolone acetonide (KENALOG) 0.1 % cream APPLY TO ITCHY AREAS ON BODY ONCE DAILY NEEDED 0 08/12/2022 Active Comment on above: APPLY TO ITCHY AREAS ON BODY ONCE DAILY NEEDED valsartan 320 mg oral tablet (20 sources) Angiotensin 2 Receptor Pradeep Start: 11-08-19 End: 07-01-20 DIOVAN 320 MG TABS 1/2 tablet 2 X daily VALSARTAN [id number] Allison Arguello vit C-E-zinc np-wnvq-mot-zeax (ICAPS AREDS2) 250 mg-200 unit -12.5 mg-1 mg cap (5 sources) End: 09-03-19 take 1 capsule by mouth once daily vit C-E-zinc nq-puli-ull-zeax (ICAPS AREDS2) 250 mg-200 unit -12.5 mg-1 mg cap Take 1 capsule by mouth once daily. 0 09/03/2022 Discontinued (Discontinued by another Health Care Provider) take 1 capsule by mouth once rohan ly vit C-E-zinc sx-ssjd-nhq-zeax (ICAPS AREDS2) 250 mg-200 unit -12.5 mg-1 mg cap Take 1 capsule by mouth once daily. 0 Active Comment on above: Take 1 capsule by mo uth once daily. vit C/E/Zn/coppr/lutein /zeaxan (PRESERVISION AREDS-2 ORAL) (8 sources) take 1 capsule by mouth once daily vit C/E/Zn/coppr/lutein/ze axan (PRESERVISION AREDS-2 ORAL) Take 1 capsule by mouth once daily. 0 Active Comment on above: Take 1 capsule by mo uth once daily. Vitamins A,C,T-Nhkq-Jgojqv (Preservision Areds) 4,296 mcg-226 mg-90 mg capsule (16 sources) Start: 11-13-2023 End: 06-27-2024 Vitamins A,C,Q-Fmrd-Znhwms (Preservision Areds) 4,296 mcg-226 mg-90 mg capsule Discontinued 1 NMA PO TWICE A DAY November 13, 2023 12:00am June 27, 2024 4:02pm Start: 11-13-2023 take 1 capsule by mo uth twice daily Vitamins A,C,B-Zsdr-Wywbxn (Preservision Areds) 4,296 mcg-226 mg-90 mg capsule Active 1 CAP PO TWICE A DAY November 13, 2023 12:00am warfarin sodium 4 mg oral tablet (20 sources) Vitamin K Antagonist Start: 04-08-2021 End: 03-14-2025 Warfarin 4 mg tablet Discontinued 4 mg PO .COMPLEX 120 3 January 07, 2024 12:42pm March 14, 2025 9:03am 4 mg (1 tablet) 6 days a week, 6 mg ( 1.5 tablets) one day a week or as directed for dose changes. Please contact the information source for Protocol details. Start: 10-06-2017 End: 02-10-2019 take 1 tablet by mouth at bedtime Warfarin 4 mg tablet Discontinued 4 mg PO AT BEDTIME 90 3 February 04, 2019 12:23pm February 10, 2019 1:25pm Please contact the information source for Protocol details. Start: 08-08-2015 End: 04-08-2021 take 1 tablet by mouth once daily Warfarin 4 mg tablet Discontinued 4 mg PO DAILY 90 3 February 27, 2020 12:21pm April 08, 2021 2:19pm or as directed for dose changes. Please contact the information source for Protocol details. Start: 06-19-2014 End: 08-10-2014 COUMADIN 4 MG TABS take one tablet five days a week WARFARIN SODIUM [id number] Albert Mojica MD Start: 01-20-2014 COUMADIN 1 MG TABS Pt. currently takes 4 mg daily: he keeps 1 mg tablets on hand as dose often goes up or down WARFARIN SODIUM [id number] Albert Mojica MD Start: 01-20-2014 COUMADIN 1 MG TABS Take with a 3 mg tablet daily to = 4 mg Thursday-thursday, 3 mg all other days or as directed WARFARIN SODIUM [id number] Kelli Vivas PA-C Start: 01-20-2014 COUMADIN 1 MG TABS 2 mg on Mondays, 3 mg daily rest of week (has 3 mg tablets also) WARFARIN SODIUM [id number] Albert Mojica MD Start: 07-05-2013 End: 10-06-2017 take 1 tablet by mouth once daily Warfarin 3 MG tablet Discontinued 3 mg PO DAILY January 12, 2014 12:00am October 06, 2017 3:07pm Start: 01-20-2013 take 0.5 tablet by mouth once COUMADIN 7.5 MG TABS 1/2 tablet by mouth daily (3.75 daily) WARFARIN SODIUM [id number] Britney Boyd RN Start: 11-07-2010 End: 01-20-2013 WARFARIN SODIUM 1 MG TABS Igor cook as directed WARFARIN SODIUM [id number] Allison Arguello Start: 11-07-2010 COUMADIN 7.5 M G TABS Take as directed, IVETTE WARFARIN SODIUM [id number] Allison Arguello take 6 mg by mouth once daily wa rfarin (COUMADIN) 4 mg tablet Take 4-6 mg by mouth daily as directed. 6 mg Mon - Fri 4 mg Sat & Sun 0 Active Comment on above: Take 4-6 mg by mouth daily as directed. 6 mg Mon - Fri 4 mg Sat & Sun Take 4-6 mg by mouth daily as directed. 4mg every day except for 6mg on the 7th day as of 09.03.2022 zinc gluconate 50 mg oral tablet (20 sources) Start: 09-18-2022 End: 11-13-2023 take 1 tablet by mouth once daily as needed Zinc Gluconate 50 mg tablet Discontinued 50 mg PO DAILY as needed June 16, 2023 9:34am November 13, 2023 1:16pm Comment on above: Take 50 mg by mouth once daily. Problems Active Problems Problem Classification Problem Date Documented Da te Episodic/Chronic Acute cerebrovascular disease (20 sources) Hematoma of subdural space of neuraxis; Translations: [Acute subdural hematoma] Onset: 07-21-2022 07-21-2022 Chronic Cardiac dysrhythmias (20 sources) Paroxysmal atrial fibrillation; Translations: [Atrial fibrillation] Onset: 11-07-2010 Resolved: 11-13-2016 12-20-2015 Chronic Chronic ulcer of skin (20 sources) Ulcer of lower extremity; Translations: [Non-pressure chronic ulcer of unspecified part of right lower leg with fat layer exposed] 02-08-2019 Chronic Complication of device; implant or graft (20 sources) Atherosclerosis of coronary artery bypass graft(s) without angina pectoris; Translations: [Arteriosclerosis of coronary artery bypass graft] Onset: 11-07-2010 Resolved: 11-13-2016 11-07-2010 Chronic Conduction disorders (1 source) Bifascicular block; Translations: [Bifascicular block] Onset: 07-21-2022 Chronic Congestive heart failure; nonhypertensive (20 sources) Chronic diastolic (congestive) heart failure; Translations: [Chronic diastolic heart failure] Onset: 04-02-2017 04-02-2017 Chronic Coronary atherosclerosis and other heart disease (20 sources) Atherosclerotic heart disease of [place] coronary artery without angina pectoris; Translations: [Coronary arteriosclerosis] Onset: 04-30-2001 05-24-2015 Chronic Comment on above: CABG x 2 SVG-D1 and SVG-OM w/ AVR using a [address] [employer] Prost[employer] 04/30/2001 Delirium, dementia, and amnestic and other cognitive disorders (20 sources) Dementia; Translations: [Unspecified dementia without behavioral disturbance] 12-21-2023 Chronic Disorders of lipid metabolism (20 sources) Hyperlipidemia; Translations: [Hyperlipidemia, unspecified] Onset: 11-07-2010 11-07-2010 Chronic Diverticulosis and diverticulitis (12 sources) Diverticulosis of colon; Translations: [Diverticulosis of large intestine without perforation or abscess without bleeding] 03-27-2011 Chronic Essential hypertension (20 sources) Hypertensive disorder; Translations: [Essential hypertension] Onset: 11-07-2010 11-07-2010 Chronic Fluid and electrolyte disorders (20 sources) Hypokalemia; Translations: [Hypokalemia] Onset: 08-28-2016 08-28-2016 Episodic Gastrointestinal hemorrhage (12 sources) Hemorrhage of rectum and anus; Translations: [Hemorrhage of anus and rectum] 03-27-2011 Episodic Gout and other crystal arthropathies (6 sources) Gout; Translations: [Gout, unspecified] Onset: 02-10-2022 10-05-2022 Chronic Heart valve disorders (20 sources) Rheumatic aortic stenosis; Translations: [Aortic valve regurgitation] Onset: 04-30-2001 Resolved: 12-20-2015 12-20-2015 Chronic Comment on above: AVR using a [address] [employer] Prost[employer] the patient's Coumadin is managed through our office here at [facility] Mycoses (12 sources) Onychomycosis due to dermatophyte ; Translations: [Tinea unguium] 03-27-2011 Episodic Nonspecific chest pain (20 sources) Chest pain; Translations: [Chest pain, unspecified] Onset: 03-17-2025 09-26-2021 Episodic Osteoarthritis (12 sources) Osteoarthritis; Translations: [Unspecified osteoarthritis, unspecified site] 03-27-2011 Chronic Other acquired deformities (12 sources) Cervical somatic dysfunction; Translations: [Other biomechanical lesions of cervical region] 03-27-2011 Episodic Other aftercare (20 sources) Long-term current use of anticoagulant; Translations: [intermission coordinator (current) use of anticoagulants] Onset: 07-21-2022 07-22-2022 Episodic Other aftercare (2 sources) senior care (current) use of anticoagulants; Translations: [Current use of long 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] Onset: 07-22-2022 Episodic Other and ill-defined heart disease (20 sources) Left ventricular diastolic dysfunction ; Translations: [Heart disease, unspecified] Onset: 10-05-2022 11-08-2020 Chronic Other connective tissue disease (1 source) Facial weakness; Translations: [Facial droop] Onset: 07-22-2022 Episodic Other ear and sense organ disorders (2 sources) Unspecified sensorineural hearing loss; Translations: [Unspecified sensorineural hearing loss] Onset: 09-10-2021 Chronic Other ear and sense organ disorders (4 sources) Sensorineural hearing loss, bilateral; Translations: [Sensorineural hearing loss, bilateral] Onset: 07-10-2023 06-23-2023 Chronic Other ear and sense organ disorders (15 sources) Wax in ear canal; Translations: [Impacted cerumen, unspecified ear] 12-18-2023 Episodic Other ear and sense organ disorders (1 source) Impacted cerumen, unspecified ear; Translations: [Impacted cerumen] 12-18-2023 Episodic Other liver diseases (12 sources) Elevated levels of transaminase & lactic acid dehydrogenase; Translations: [Nonspecific elevation of levels of transaminase or lactic acid dehydrogenase (LDH)] 03-27-2011 Episodic Other lower respiratory disease (20 sources) Fibrosis of lung; Translations: [Pulmonary fibrosis, unspecified] 12-22-2024 Chronic Other lower respiratory disease (2 sources) Pulmonary fibrosis, unspecified; Translations: [Pulmonary fibrosis, unspecified] Onset: 03-15-2025 Chronic Other lower respiratory disease (20 sources) Dyspnea; Translations: [Dyspnea, unspecified] Onset: 07-25-2016 07-25-2016 Episodic Other lower respiratory disease (20 sources) Respiratory insufficiency; Translations: [Other abnormalities of breathing] 09-26-2021 Episodic Other lower respiratory disease (14 sources) Productive cough ; Translations: [Productive cough] 05-23-2024 Episodic Other lower respiratory disease (2 sources) Shortness of breath; Translations: [Shortness of breath] Onset: 03-17-2025 Episodic Other nervous system disorders (20 sources) Polyneuropathy; Translations: [Polyneuropathy, unspecified] 12-21-2023 Chronic Other nervous system disorders (1 source) Polyneuropathy, unspecified; Translations: [Unspecified hereditary and idiopathic peripheral neuropathy] 12-15-2023 Chronic Other nervous system disorders (1 source) Dysarthria and anarthria; Translations: [Dysarthria] Onset: 07-22-2022 Episodic Other nervous system disorders (1 source) Impairment of balance; Translations: [Other abnormalities of gait and mobility] 06-23-2023 Episodic Other nervous system disorders (1 source) Unsteadiness on feet; Translations: [Unsteadiness on feet] Onset: 02-22-2025 Episodic Other nutritional; endocrine; and metabolic disorders (20 sources) Body mass index (BMI) 34.0-34.9, adult; Translations: [Body mass index (BMI) 33.0-33.9, adult] Onset: 07-05-2013 07-05-2013 Chronic Other nutritional; endocrine; and metabolic disorders (7 sources) Body mass index (BMI) 33.0-33.9, adult; Translations: [Body mass index (BMI) 33.0-33.9, adult] Onset: 07-05-2013 06-08-2014 Chronic Other nutritional; endocrine; and metabolic disorders (12 sources) Obesity; Translations: [Obesity, unspecified] 03-27-2011 Chronic Nirali-; endo-; and myocarditis; cardiomyopathy (20 sources) Chronic rheumatic pericarditis; 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] Onset: 11-07-2010 Resolved: 11-13-2016 11-13-2016 Chronic Pneumonia (except that caused by tuberculosis or sexually transmitted disease) (20 sources) Community acquired pneumonia; Translations: [Pneumonia, unspecified organism] 09-26-2021 Episodic Pulmonary heart disease (20 sources) Other secondary pulmonary hypertension; Translations: [Pulmonary arterial hypertension] Onset: 04-02-2017 04-02-2017 Chronic Residual codes; unclassified (20 sources) Localized edema; Translations: [Localized edema] Onset: 11-14-2016 11-14-2016 Episodic Residual codes; unclassified (1 source) Other specified postprocedural states; Translations: [History of radiofrequency ablation (RFA) procedure for cardiac arrhythmia] Onset: 10-05-2022 Episodic Residual codes; unclassified (1 source) Other amnesia; Translations: [Memory loss] 12-15-2023 Episodic Residual codes; unclassified (14 sources) Amnesia; Translations: [Other amnesia] 12-23-2023 Episodic Spondylosis; intervertebral disc disorders; other back problems (20 sources) Low back pain; Translations: [Lumbago] 03-27-2011 Episodic Superficial injury; contusion (20 sources) Hematoma of lower limb; Translations: [Contusion of left lower leg, initial encounter] 05-20-2018 Episodic Transient cerebral ischemia (1 source) Amaurosis fugax; Translations: [Amaurosis fugax] Onset: 03-09-2025 Chronic Unclassified (20 sources) Obstructive sleep apnea syndrome; Translations: [Body mass index (BMI) 33.0-33.9, adult] Onset: 07-05-2013 12-24-2015 Chronic Unclassified (12 sources) Radiofrequency ablation operation for arrhythmia ; Translations: [Other specified postprocedural states] Onset: 12-20-2015 12-20-2015 Unclassified (20 sources) Long-term drug therapy; Translations: [Encounter for therapeutic drug level monitoring] Onset: 11-07-2010 10-03-2014 Unclassified (7 sources) Warfarin therapy started; Translations: [senior care (current) use of anticoagulants] Onset: 03-10-2017 03-10-2017 Unclassified (1 source) Other persistent atrial fibrillation; Translations: [Persistent atrial fibrillation (HCC)] Onset: 10-05-2022 Unclassified (1 source) SDH (subdural hematoma); Translations: [SDH (subdural hematoma)] Onset: 07-22-2022 Unclassified (1 source) Permanent atrial fibrillation; Translations: [Permanent atrial fibrillation (HCC)] Onset: 07-22-2022 Unclassified (1 source) Other specified cough; Translations: [Other specified cough] Onset: 06-23-2024 Unclassified (1 source) Cough, unspecified; Translations: [Cough, unspecified] Onset: 06-08-2024 Past or Other Problems Problem Classification Problem Date Documented Date Episodic/Chronic Acute bronchitis (15 sources) Acute bronchitis; Translations: [Acute bronchitis, unspecified] Onset: 02-26-2024 Episodic Cardiac dysrhythmias (14 sources) Bradycardia; Translations: [Bradycardia, unspecified] Onset: 2 07-22-2022 Episodic Coma; stupor; and brain damage (6 sources) Daytime somnolence; Translations: [Somnolence] Onset: 3 10-05-2022 Episodic Coronary atherosclerosis and other heart disease (20 sources) Presence of aortocoronary bypass graft; Translations: [Aortocoronary bypass status] Onset: 1 11-13-2016 Episodic E Codes: Fall (13 sources) Fall; Translations: [Unspecified fall, initial encounter] Onset: 2 07-22-2022 Episodic Genitourinary symptoms and ill-defined conditions (12 sources) Retention of urine; Translations: [Retention of urine, unspecified] Onset: 2 07-23-2022 Episodic Intracranial injury (18 sources) Subarachnoid hemorrhage due to traumatic injury; Translations: [Traumatic subarachnoid hemorrhage without loss of consciousness, initial encounter] Onset: 2 07-22-2022 Episodic Other aftercare (20 sources) 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; Translations: [senior care (current) use of anticoagulants] Onset: 1 11-07-2010 Episodic Other connective tissue disease (12 sources) Weakness of face muscles; Translations: [Facial weakness] Onset: 2 07-22-2022 Episodic Other lower respiratory disease (6 sources) Snoring; Translations: [Snoring] Onset: 3 10-05-2022 Episodic Other lower respiratory disease (1 source) Dyspnea, unspecified; Translations: [Dyspnea, unspecified] Onset: 5 Episodic Other nervous system disorders (12 sources) Dysarthria; Translations: [Dysarthria and anarthria] Onset: 2 07-22-2022 Episodic Other screening for suspected conditions (not mental disorders or infectious disease) (20 sources) Echocardiogram abnormal; Translations: [Localized edema] Onset: 1 Resolved: 5 11-07-2010 Episodic Other screening for suspected conditions (not mental disorders or infectious disease) (13 sources) Prolonged QT interval; Translations: [Abnormal electrocardiogram [ECG] [EKG]] Onset: 2 07-22-2022 Episodic Pancreatic disorders (20 sources) Acute pancreatitis; Translations: [Acute pancreatitis, unspecified] Resolved: 0 01-10-2014 Episodic Residual codes; unclassified (7 sources) History of radiofrequency ablation operation for arrhythmia; Translations: [Other specified postprocedural states] Onset: 3 Episodic Residual codes; unclassified (8 sources) Other specified personal risk factors, not elsewhere classified; Translations: [Other specified personal history presenting hazards to health] Onset: 3 Episodic Unclassified (20 sources) Preoperative cardiovascular examination ; Translations: [Encounter for preprocedural cardiovascular examination] Onset: 4 Resolved: 5 05-24-2015 Unclassified (20 sources) Therapeutic drug monitoring assay ; Translations: [Encounter for therapeutic drug level monitoring] Onset: 5 Resolved: 7 11-13-2016 Results Test Name Value Interpretation Reference Range Facility Cardiology Visit Reporton Cardiology Visit Report [facility] [address] [place], [place] [address] OFFICE VISIT Date of Service: 03/17/25 MR#: [id number] Acct: [id number] Name: GEORGE MCCLAIN Rep #: [id number] : 1935 Provider: HAWK Desouza Age/Sex: 89/M [place] [facility] [place] Signed HPI HPI History of Present Illness Details: George Mcclain is an 89-year-old gentleman with a history of chronic persistent atrial fibrillation, valvular heart disease status post mechanical aortic valve replacement in 2000. He is also status post coronary artery bypass surgery with a saphenous vein graft to the diagonal branch and saphenous vein graft to the obtuse marginal branch. He had attempted cardioversion for his atrial fibrillation, as well as an ablation in 2014 which was unsuccessful. In September 2020 he was admitted with bronchitis and congestive heart failure his echocardiogram demonstrated an ejection fraction of 65% with pulmonary systolic pressures of 80 mmHg. He was diuresed, and a MT was performed which demonstrated a peak gradient across his aortic valve of 59 mmHg and a mean gradient of 30 mmHg his diuretics were adjusted and he has improved significantly with his most recent echocardiogram demonstrating pulmonary artery systolic pressures of 44 mmHg. The gradient across the aortic valve was 38 over 17 mmHg. In June of 2022, he had a fall and sustained a subdural hematoma and needed to be transferred to [facility]. He was evaluated and observed and he underwent an echocardiographic evaluation which demonstrated an ejection fraction of 58% and a stable [employer] prosthetic aortic valve. His pulm artery systolic pressure was 44 mmHg. While he was in the hospital he was noted to be bradycardic and his beta-pradeep was held. He was discharged with a 14-day event monitor which demonstrated some bradycardic episodes but no significant pauses were noted. He tells me that he seen the warehouse handler and they think that he may have pulmonary fibrosis and was started on a new medication called ovate. Pt is in here today for concerns over chest pain. He notes that it is in the morning. notes that he has been complaining of this. He does work out routinely. He does not have any chest pain with activity. He notes that this is only at rest. He does have SOB and feels that this is worse. But then he does not feel that his activity has changed. EKG today demonstrates Afib with RBBB, LAFB with a HR of 66 Intake Vital Signs 02/07/25 11:19 03/17/25 08:52 Height 5 ft 9 in 5 ft 9 in Weight: 167 lb BMI 24.6 BP 107/64 Blood Pressure Location Lt brachial Position Sitting Respiration 20 H Pulse 65 Pulse Source Monitor Pulse Oximetry (%) 94 Oxygen Delivery Method room air Intake Visit Reasons: having chest pains in am see clinicals. 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 Elizabeth 11/13/23 03/17/25 History Diego 11/12/2023. lutein 20 mg tablet 20 mg PO QDAY 06/27/24 03/17/25 Hi story magnesium citrate 100 mg capsule 100 mg PO QHS 06/27/24 03/17/25 Hi story albuterol sulfate 90 mcg/actuation 2 puff inhalation 4X/DAY PRN cou gh 12/22/24 03/17/25 History aerosol inhaler calcium 250 mg (as citrate 1 tab PO QDAY 12/22/24 03/17/25 Hi story malate)-vit D3 2.5 mcg (100 unit) tablet dapagliflozin propanediol 10 mg 10 mg PO QAM #60 tabs 12/22/24 Rx tablet (Farxiga) fluticasone furoate 200 1 inh inhalation QDAY 12/22/24 History mcg/actuation blister powder for inhalation (Arnuity Ellipta) furosemide 40 mg tablet 40 mg PO BID water 12/22/24 History lutein 25 mg-zeaxanthin 5 mg 1 cap PO DAILY 12/22/24 03/17/25 H istory capsule spironolactone 25 mg tablet 25 mg PO QDAY #60 tabs 12/22/24 Rx bupropion HCl 150 mg 24 hr tablet, 150 mg PO QDAY 02/07/25 03/17/25 History extended release mirtazapine 15 mg tablet 15 mg PO QHS 02/07/25 03/17/25 His tory nintedanib 150 mg capsule (Ofev) 150 mg PO Q12H 02/07/25 03/17/25 H istory galantamine 16 mg 24 hr 16 mg PO QAM #30 caps 03/13/25 Rx capsule,extended release warfarin 4 mg tablet 4 mg PO .COMPLEX #120 tabs 5 03/17/25 Rx Ejection fraction %: 60 Have you fallen in the past y (more content not included)... Normal [facility] normalized rat io (INR) measurement by fingerstickOrdered By: Albert Mojica on 03-17-2025 INR Coag (BldC) [Relative time] 3.1 [facility] Comment on above: Critical Value > 4.0 Protime w/INR Fingerstickon 03-17-2025 INR Coag (PPP) [Relative time] 3.1 {INR} Normal [facility] Comment on above: Result Comment: Crit ical Value > 4.0 Performed By: #### L 9200.0000 ####[facility] [id number] [place], [place], [id number] Protime Coagsen 32.0 SEC High 11.7-14.9 [facility] Comment on above: Performed By: #### L 9200.0000 ####[facility] [id number] [place], [address] Whole blood prothrombin time Ordered By: Albert Mojica on 03-17-2025 PT Coag (Bld) [Time] 32.0 s High 11.7-14.9 [facility] normalized rat io (INR) calculationOrdered By: Ablert Mojica on 03-13-2025 INR Coag (Bld) [Relative time] 4.1 {INR} High [facility] Comment on above: CRITICAL VALUE MAIN D TO FZECWHO39/21/25 [address].RESULTS READ BACK BY SAME. Prothrombin Time w/INRon INR Coag (PPP) [Relative time] 4.1 {INR} Invalid Interpretation Code [facility] Comment on above: Order Comment: Comme nts: Standing Order: fax to [id number] Result Comment: CRIT ICAL VALUE CALLED TO [facility] 03/13/25 [address]. RESULTS READ BACK BY SAME. Performed By: #### L 300.3900 ####[facility] [id number] [place], [place], [phone] PT Coag (PPP) [Time] 40.9 s High 11.7-14.9 [facility] Comment on above: Order Comment: Comme nts: Standing Order: fax to [id number] Performed By: #### L 300.3900 ####[facility] [id number] [place], [place], [phone] Prothrombin timeOrdered By: Albert Mojica on 03-13-2025 PT Coag (PPP) [Time] 40.9 s High 11.7-14.9 [facility] Protime w/INR Fingerstickon 03-13-2025 INR Coag (PPP) [Relative time] 4.1 {INR} Invalid Interpretation Code [facility] Comment on above: Result Comment: Crit ical Value > 4.0 Performed By: #### L 501.6710, L500.4050, L3300.6400, L101.9900, L100.0100 #### [facility] [address] [place], [address] Protime Coagsen 40.4 SEC High 11.7-14.9 [facility] Comment on above: Performed By: #### L 501.6710, L500.4050, L3300.6400, L101.9900, L100.0100 #### [facility] [address] [place], [place], [phone] Whole blood prothrombin time Ordered By: Albert Mojica on 03-13-2025 PT Coag (Bld) [Time] 40.4 s High 11.7-14.9 [facility] Bilirubin directOrdered By: George Hood on 03-10-2025 Bilirubin.direct [Mass/Vol] 0.41 mg/dL High 0.00-0.3 0 [facility] Bilirubin, totalOrdered By: George Hood on 03-10-2025 Bilirubin [Mass/Vol] 0.87 mg/dL 0.00-1.30 [facility] L503.7505on 03-10-2025 Natriuretic peptide B (Bld) [Mass/Vol] 1660 pg/mL Normal <=1800 [facility] Comment on above: Result Comment: Hear t Failure Unlikely: < 300 pg/mL Heart Failure Likely < 50 Years: > 450 pg/mL 50-75 Years: > 900 pg/mL >75 Years: > 1800 pg/mL Performed By: #### L 503.7505, L500.3400 ####[facility] [id number] [place], [address] Laboratory - Chemistry and C hemistry - challengeOrdered By: George Hood on 03-10-2025 AST [Catalytic activity/Vol] 33 U/L <38 [facility] Liver Profileon 03-10-2025 Albumin [Mass/Vol] 4.0 g/dL Normal 3.4-4.8 [facility] Comment on above: Performed By: #### L 503.7505, L500.3400 #### [facility] [address] [place], [address] ALK PHOS 73 U/L Normal 40-129 [facility] Comment on above: Performed By: #### L 503.7505, L500.3400 #### [facility] [address] [place], [address] ALT [Catalytic activity/Vol] 19 U/L Normal <=46 [facility] Comment on above: Performed By: #### L 503.7505, L500.3400 #### [facility] [address] [place], [address] AST [Catalytic activity/Vol] 33 U/L Normal <=37 [facility] Comment on above: Performed By: #### L 503.7505, L500.3400 #### [facility] [address] [place], [address] Bilirubin [Mass/Vol] 0.87 mg/dL Normal 0.00-1.30 [facility] Comment on above: Performed By: #### L 503.7505, L500.3400 #### [facility] [address] [place], [address] Bilirubin.direct [Mass/Vol] 0.41 mg/dL High 0.00-0.3 0 [facility] Comment on above: Performed By: #### L 503.7505, L500.3400 #### [facility] [address] [place], [address] Globulin (S) [Mass/Vol] 2.3 g/dL Normal 2.2-4.2 [facility] Comment on above: Performed By: #### L 503.7505, L500.3400 #### [facility] [address] [place], [address] T PROT 6.3 g/dL Normal 5.9-8.4 [facility] Comment on above: Performed By: #### L 503.7505, L500.3400 #### [facility] [address] [place], [address] Natriuretic peptide.B prohor ronald N-Terminal [Mass/volume] in Serum or PlasmaOrdered By: George Hood on 03-10-2025 Natriuretic peptide.B prohormone N-Terminal [Mass/Vol] 1660 pg/mL <1800 [facility] Comment on above: Heart Failure Unlike ly: < 300 pg/mLHeart Failure Likely< 50 Years: > 450 pg/mL50-75 Years: > 900 pg/mL>75 Years: > 1800 pg/mL Serum globulin measurementOr dered By: George Hood on 03-10-2025 Globulin (S) [Mass/Vol] 2.3 g/dL 2.2-4.2 [facility] Serum or plasma alanine sandoval otransferase (ALT) measurementOrdered By: George Hood on 03-10-2025 ALT [Catalytic activity/Vol] 19 U/L <47 [facility] Serum or plasma albumin ana laura urement (mass/volume)Ordered By: George Hood on 03-10-2025 Albumin [Mass/Vol] 4.0 g/dL 3.4-4.8 [facility] Serum or plasma alkaline duong sphatase measurementOrdered By: George Hood on 03-10-2025 ALP [Catalytic activity/Vol] 73 U/L 40-129 [facility] Total proteinOrdered By: Oziel Hood on 03-10-2025 Protein [Mass/Vol] 6.3 g/dL 5.9-8.4 [facility] normalized rat io (INR) calculationOrdered By: Albert Mojica on 03-06-2025 INR Coag (Bld) [Relative time] 4.8 {INR} High [facility] Comment on above: CRITICAL VALUE MAIN D TO SABI LEMUS03/06/25 1420 [address].RESULTS READ BACK BY SAME. Prothrombin Time w/INRon INR Coag (PPP) [Relative time] 4.8 {INR} Invalid Interpretation Code [facility] Comment on above: Result Comment: CRIT ICAL VALUE CALLED TO SABI LEMUS 03/06/25 1420 Natalya Dillon. RESULTS READ BACK BY SAME. Performed By: #### L 300.3900 #### [facility] [address] [place], [address] PT Coag (PPP) [Time] 45.7 s High 11.7-14.9 [facility] Comment on above: Performed By: #### L 300.3900 #### [facility] [address] [place], [address] Prothrombin timeOrdered By: Albert Mojica on 03-06-2025 PT Coag (PPP) [Time] 45.7 s High 11.7-14.9 [facility] Carotid Duplex Ultrasoundon 03-02-2025 Carotid Duplex Ultrasound [facility] [address] [place] [address] Carotid Duplex Ultrasound 03/02/25 1308 MR#: [id number] Acct: [id number] Name: GEORGE MCCLAIN Rep #: [id number] : 1935 89 From: Mike De Jesus MD Attending Dr: Dr. Smith Pichardo MD Status: REG CLI Ordering Dr: Smith Pichardo MD Date: 03/02/25 Location: [facility] Sex: M C Admitted: Reason For Study Reason For Study: Amaurosis fugax Rt. Velocities/BP Lt. Velocities/BP Prox CCA 89.1/11.6 cm/sec. Prox CCA 161.3/6 cm/sec. Mid CCA 78.7/13.5 cm/sec. Mid CCA 98.6/6.5 cm/sec. Dist CCA 65.5/10.7 cm/sec. Dist CCA 87.6/10.2 cm/sec. Prox ICA 54.2/11.3 cm/sec. Prox ICA 93.7/15.1 cm/sec. Mid ICA 65.5/12.6 cm/sec. Mid ICA 75.3/22.5 cm/sec. Dist ICA 98.6/16.3 cm/sec. Dist ICA 75.3/15.1 cm/sec. Rt. ICA/CCA = 1.25. Lt. ICA/CCA = 0.95. Prox ECA 90.5 cm/sec. Prox ECA 113.3/5.3 cm/sec. Rt. Vert. 55.3/12.4 cm/sec. Lt. Vert. 55.3/11.3 cm/sec. Right Extracranial There is homogeneous, smooth atherosclerotic plaque noted in the right common carotid artery. There is heterogeneous, irregular atherosclerotic plaque noted in the right internal carotid artery. There is intimal thickening but no significant atherosclerotic plaque noted in the right external carotid artery. Antegrade flow is noted in the right vertebral artery. Left Extracranial There is heterogeneous, irregular atherosclerotic plaque noted in the left common carotid artery. There is heterogeneous, irregular atherosclerotic plaque noted in the left internal carotid artery. There is heterogeneous, irregular atherosclerotic plaque noted in the left external carotid artery. Antegrade flow is noted in the left vertebral artery. Procedure Carotid Duplex [id number]. This is a Carotid Duplex examination using B-mode, color flow and specral Doppler. Exam performed in department. VL/Carotid Duplex Ultrasound Interpretation Summary Mild (<50%) stenosis right extracranial internal carotid. Mild (<50%) stenosis left extracranial internal carotid. Patent and antegrade vertebrals bilaterally. Mild (<50%) stenosis right extracranial internal carotid. Mild (<50%) stenosis left extracranial internal carotid. Patent and antegrade vertebrals bilaterally. Limited due to calcific shadowing, alternative imaging may be beneficial. Ordering Physician: Smith Pichardo Referring Physician: Bashir Cortez MD Performed By: Steph Rivera RVT 03/02/25 1354 Date Mike De Jesus MD CC: Dr. Bashir Cortez MD; Dr. Smith Pichardo MD Date Dictated: 03/02/25 1308 Date Transcribed: 03/02/[address] Reporter: Signed Normal [facility] Duplex ultrasound of carotid artery reportOrdered By: Mike De Jesus on 03-02-2025 Study report [facility] [address] [place] [address] Carotid Duplex Ultrasound 03/02/25 1308 MR#: [id number] Acct: [id number] Name: GEORGE MCCLAIN Rep #:[id number] : 1935 89 From: Mike Cavazos Attending Dr: Dr. Smith Pichardo MD Status: REG CLI Ordering Dr: Smith Pichardo MD Date: 03/02/25 Location: [facility] Sex: M C Admitted: Reason For Study Reason For Study: Amaurosis fugax Rt. Velocities/BP Lt. Velocities/BP Prox CCA 89.1/11.6 cm/sec. Prox CCA 161.3/6 cm/sec. Mid CCA 78.7/13.5 cm/sec. Mid CCA 98.6/6.5 cm/sec. Dist CCA 65.5/10.7 cm/sec. Dist CCA 87.6/10.2 cm/sec. Prox ICA 54.2/11.3 cm/sec. Prox ICA 93.7/15.1 cm/sec. Mid ICA 65.5/12.6 cm/sec. Mid ICA 75.3/22.5 cm/sec. Dist ICA 98.6/16.3 cm/sec. Dist ICA 75.3/15.1 cm/sec. Rt. ICA/CCA = 1.25. Lt. ICA/CCA = 0.95. Prox ECA 90.5 cm/sec. Prox ECA 113.3/5.3 cm/sec. Rt. Vert. 55.3/12.4 cm/sec. Lt. Vert. 55.3/11.3 cm/sec. Right Extracranial There is homogeneous, smooth atherosclerotic plaque noted in the right common carotid artery. There is heterogeneous, irregular atherosclerotic plaque noted in the right internal carotid artery. There is intimal thickening but no significant atherosclerotic plaque noted in the right external carotid artery. Antegrade flow is noted in the right vertebral artery. Left Extracranial There is heterogeneous, irregular atherosclerotic plaque noted in the left common carotid artery. There is heterogeneous, irregular atherosclerotic plaque noted in the left internal carotid artery. There is heterogeneous, irregular atherosclerotic plaque noted in the left external carotid artery. Antegrade flow is noted in the left vertebral artery. Procedure Carotid Duplex [id number]. This is a Carotid Duplex examination using B-mode, color flow and specral Doppler. Exam performed in department. VL/Carotid Duplex Ultrasound Interpretation Summary Mild (<50%) stenosis right extracranial internal carotid. Mild (<50%) stenosis left extracranial internal carotid. Patent and antegrade vertebrals bilaterally. Mild (<50%) stenosis right extracranial internal carotid. Mild (<50%) stenosis left extracranial internal carotid. Patent and antegrade vertebrals bilaterally. Limited due to calcific shadowing, alternative imaging may be beneficial. Ordering Physician: Smith Pichardo Referring Physician: Bashir Cortez MD Performed By: Steph Rivera RVT 03/02/25 9696 Date _ Mike De Jesus MD CC: Dr. Bashir Cortez MD; Dr. Smith Pichardo MD ~ Date Dictated: 03/02/25 1308 Date Transcribed: 03/02/251353 [address]enographic [address] Reporter: Signed [facility] Work Phone: Anion gap in Serum or Plasma Ordered By: Albert Mojica on 02-07-2025 Anion gap [Moles/Vol] 13 mmol/L - [facility] BUN/creatinine ratioOrdered By: Albertradha Mojica on 02-07-2025 Urea nitrogen/Creatinine [Mass ratio] 33.2 mg/mg High 06-12 [facility] Basic Metabolic Profile (BMP )on 02-07-2025 BUN/CRE 33.2 RATIO High 06-12 [facility] Comment on above: Performed By: #### L 300.3900 #### [facility] Laboratory [address] [place], [address] Calcium [Mass/Vol] 9.5 mg/dL Normal 7.6-11.0 [facility] Comment on above: Performed By: #### L 300.3900 #### [facility] Laboratory [address] [place], [address] Chloride [Moles/Vol] 100 mmol/L Normal 98-108 [facility] Comment on above: Performed By: #### L 300.3900 #### [facility] Laboratory [address] [place], [address] CO2 [Moles/Vol] 24.0 mmol/L Normal 21.0-32.0 [facility] Comment on above: Performed By: #### L 300.3900 #### [facility] Laboratory [address] [place], [address] Creatinine [Mass/Vol] 1.27 mg/dL High 0.70-1.20 [facility] Comment on above: Performed By: #### L 300.3900 #### [facility] Laboratory [address] [place], [address] GAP 13 Normal 5-15 [facility] Comment on above: Performed By: #### L 300.3900 #### [facility] Laboratory [address] [place], [address] GFR/1.73 sq M.predicted among non-blacks MDRD (S/P/Bld) [Vol rate/Area] 55 mL/min/{1.73_m2} Low >60 [facility] Comment on above: Result Comment: mL/m in/1.73m2 CKD-EPI Creatinine Equation (2020) Performed By: #### L 300.3900 #### [facility] Laboratory [address] [place], [address] Glucose [Mass/Vol] 125 mg/dL High 70-99 [facility] Comment on above: Performed By: #### L 300.3900 #### [facility] Laboratory [address] [place], [address] Potassium [Moles/Vol] 4.0 mmol/L Normal 3.3-5.1 [facility] Comment on above: Result Comment: Hemo lysis present, Results??could be affected. ?? Performed By: #### L 300.3900 #### [facility] Laboratory [address] [place], [address] Sodium [Moles/Vol] 138 mmol/L Normal 133-145 [facility] Comment on above: Performed By: #### L 300.3900 #### [facility] [address] [place], [address] Urea nitrogen [Mass/Vol] 42 mg/dL High 4-19 [facility] Comment on above: Performed By: #### L 300.3900 #### [facility] Laboratory [address] [place], [address] Carbon dioxide, total [Moles /volume] in Central venous bloodOrdered By: Albert Mojica on 02-07-2025 CO2 [Moles/Vol] 24.0 mmol/L 21.0-32.0 [facility] Cardiology Visit Reporton Cardiology Visit Report [facility] [address] [place] [address] OFFICE VISIT Date of Service: 02/07/25 MR#: [id number] Acct: [id number] Name: GEORGE MCCLAIN Rep #: [id number] : 1935 Provider: Dr. Albert Mojica MD Age/Sex: 89/M [place] [facility] Signed HPI HPI History of Present Illness Details: George Mcclain is an 89-year-old gentleman who presents to the office today for a cardiovascular visit. 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 He is also status post coronary artery bypass surgery with a saphenous vein graft to the diagonal branch and saphenous vein graft to the obtuse marginal branch. He had attempted cardioversion for his atrial fibrillation, as well as an ablation in 2014 which was unsuccessful. In September 2020 he was admitted with bronchitis and congestive heart failure his echocardiogram demonstrated an ejection fraction of 65% with pulmonary systolic pressures of 80 mmHg. He was diuresed, and a MT was performed which demonstrated a peak gradient across his aortic valve of 59 mmHg and a mean gradient of 30 mmHg his diuretics were adjusted and he has improved significantly with his most recent echocardiogram demonstrating pulmonary artery systolic pressures of 44 mmHg. The gradient across the aortic valve was 38 over 17 mmHg. In June of 2022, he had a fall and sustained a subdural hematoma and needed to be transferred to [facility]. He was evaluated and observed and he underwent an echocardiographic evaluation which demonstrated an ejection fraction of 58% and a stable [employer] prosthetic aortic valve. His pulm artery systolic pressure was 44 mmHg. While he was in the hospital he was noted to be bradycardic and his beta-pradeep was held. He was discharged with a 14-day event monitor which demonstrated some bradycardic episodes but no significant pauses were noted. He has followed up with us here in the office twice since his stroke and he appears to be doing quite well and stable. He tells me that he seen the warehouse handler and they think that he may have pulmonary fibrosis and was started on a new medication called ovate. We had also started him on spironolactone as well as Farxiga and his breathing is much better. He had a repeat echocardiogram done the reports of which are noted below. From a cardiac standpoint, the patient is doing well. He does acknowledge occasional palpitation. He denies chest pain, pressure or heaviness. He denies SOB, Orthopnea, and PND. He does not have bleeding issues; no blood in urine, stool or nosebleeds. His exercise capacity has reduced quite a bit. He does not have edema, or sudden weight gain. He denies dizziness, lightheadedness, syncopal or near syncopal episodes, and headaches. 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 Elizabeth 11/13/23 02/07/25 History Diego 11/12/2023. warfarin 4 mg tablet 4 mg PO .COMPLEX #120 tabs 4 02/07/25 Rx lutein 20 mg tablet 20 mg PO QDAY 06/27/24 02/07/25 Hi story magnesium citrate 100 mg capsule 100 mg PO QHS 06/27/24 02/07/25 Hi story albuterol sulfate 90 mcg/actuation 2 puff inhalation 4X/DAY PRN cou gh 12/22/24 02/07/25 History aerosol inhaler calcium 250 mg (as citrate 1 tab PO QDAY 12/22/24 02/07/25 Hi story malate)-vit D3 2.5 mcg (100 unit) tablet dapagliflozin propanediol 10 mg 10 mg PO QAM #60 tabs 12/22/24 Rx tablet (Farxiga) fluticasone furoate 200 1 inh inhalation QDAY 12/22/24 History mcg/actuation blister powder for inhalation (Arnuity Ellipta) furosemide 40 mg tablet 40 mg PO BID water 12/22/24 History lutein 25 mg-zeaxanthin 5 mg 1 cap PO DAILY 12/22/24 02/07/25 H istory capsule spironolactone 25 mg tablet 25 mg PO QDAY #60 tabs 12/22/24 Rx galantamine 16 mg 24 hr 16 mg PO QAM #30 caps 01/09/25 Rx capsule,extended release (more content not included)... Normal [facility] Chloride assayOrdered By: Yadiel Mojica on 02-07-2025 Chloride [Moles/Vol] 100 mmol/L 98-108 [facility] Glomerular filtration rate ( GFR) estimation/1.73 sq m using serum, plasma, or whole bOrdered By: Albert Mojica on 02-07-2025 GFR/1.73 sq M.predicted among non-blacks MDRD (S/P/Bld) [Vol rate/Area] 55 mL/min/{1.73_m2} Low >60 [facility] Comment on above: mL/min/1.73m2 CKD-EP I Creatinine Equation (2020) Magnesiumon 02-07-2025 Magnesium [Mass/Vol] 1.7 mg/dL Normal 1.5-2.2 [facility] Comment on above: Performed By: #### L 300.5102 #### [facility] Laboratory [facility] [place], [address] Magnesium measurement (mass/ volume)Ordered By: Albert Mojica on 02-07-2025 Magnesium (Unsp spec) [Mass/Vol] 1.7 mg/dL 1.5-2.2 [facility] Potassium measurement (mass/ volume)Ordered By: Albert Mojica on 02-07-2025 Potassium (Unsp spec) [Mass/Vol] 4.0 mmol/L 3.3-5.1 [facility] Comment on above: Hemolysis present, R esults could be affected. Serum creatinine measurement (mass/volume)Ordered By: Albert Mojica on 02-07-2025 Creatinine [Mass/Vol] 1.27 mg/dL High 0.70-1.20 [facility] Serum glucose measurement (m ass/volume)Ordered By: Albert Mojica on 02-07-2025 Glucose [Mass/Vol] 125 mg/dL High 70-99 [facility] Serum or plasma calcium ana laura urement (mass/volume)Ordered By: Albert Mojica on 02-07-2025 Calcium [Mass/Vol] 9.5 mg/dL 7.6-11.0 [facility] Serum or plasma urea nitroge n measurement (mass/volume)Ordered By: Albert Mojica on 02-07-2025 Urea nitrogen [Mass/Vol] 42 mg/dL High 4-19 [facility] Sodium levelOrdered By: Larry Mojica on 02-07-2025 Sodium [Moles/Vol] 138 mmol/L 133-145 [facility] Echo Completeon 02-06-2025 Echo [facility] [address] [place] [address] Echo Complete 02/06/25 1256 MR#: [id number] Acct: [id number] Name: GEORGE MCCLAIN Rep #: [id number] : 1935 89 From: Albert Mojica MD Attending Dr: Dr. Albert Mojica MD Status: JT MAIN Ordering Dr: Albert Mojica MD Date: 02/06/25 Location: [facility] Sex: M C Admitted: Reason For Study : CONGESTIVE HEART FAILURE Procedure This was a 2D Doppler, Color Flow transthoracic echocardiogram. Exam performed in department. Left Ventricle Normal LV size. Mild concentric left ventricular hypertrophy. The left ventricular ejection fraction is 60 %. Stage 3 diastolic dysfunction. No regional wall motion abnormalities noted. Right Ventricle Normal RV size. Normal systolic function. Atria The left atrium is mildly enlarged. The right atrium is mildly enlarged. Mitral Valve There is moderate mitral annular calcification. Trivial eccentric mitral valve insufficiency. Tricuspid Valve Normal tricuspid valve. Mild to moderate (1-2+) tricuspid valve insufficiency. Pulmonary artery systolic pressure is 43 mmHg. Aortic Valve Peak aortic valve gradient 23 mmHg. Mean aortic valve gradient 12 mmHg. Stable appearing mechanical aortic valve apparatus. Pulmonic Valve Normal pulmonic valve. Great Vessels Normal aortic root. The pulmonary artery is normal size. Inferior vena cava collapse with respiration. Pericardium/Pleural No pericardial effusion. MMode/2D Measurements Calculations LVIDd: 3.9 cm IVSd: 1.4 cm LVOT diam: 2.0 cm LVIDs: 1.6 cm LVPWd: 1.2 cm LVOT area: 3.1 cm2 RVDd: 3.9 cm FS: 57.9 % asc Aorta Diam: 4.2 cm LAV(MOD-bp): 75.0 ml LVAd ap4: 17.3 cm2 LAV(MOD-bp) Indexed: 40.7 ml/m2 LVLd ap4: 6.8 cm LAV(MOD-sp2): 79.5 ml EDV(MOD-sp4): 37.0 ml LAV(MOD-sp4): 65.9 ml EDV(sp4-el): 37.4 ml LVAs ap4: 10.0 cm2 LVLs ap4: 5.9 cm ESV(MOD-sp4): 14.7 ml ESV(sp4-el): 14.5 ml EF(MOD-sp4): 60.3 % EF(sp4-el): 61.3 % LVAd ap2: 16.7 cm2 SV(MOD-sp4): 22.3 ml SV(MOD-sp2): 22.9 ml LVLd ap2: 6.8 cm SI(MOD-sp4): 12.1 ml/m2 SI(MOD-sp2): 12.4 ml/m2 EDV(MOD-sp2): 33.0 ml EDV(sp2-el): 35.0 ml LVAs ap2: 8.1 cm2 LVLs ap2: 5.6 cm ESV(MOD-sp2): 10.1 ml ESV(sp2-el): 9.9 ml EF(MOD-sp2): 69.3 % SV(sp4-el): 22.9 ml Ao sinus diam: 3.[address] Junction: 2.7 cm LA dimension(2D): 5.4 cm LA A4 area: 23.9 cm2 RA A4 area: 22.2 cm2 TAPSE: 0.95 cm Time Measurements MV dec time: 0.25 sec Doppler Measurements Calculations MV E max nishi: 107.2 cm/sec Lat Peak E' Nishi: 14.1 cm/sec Med Peak E' Nishi: 5.6 cm/sec MV A max nishi: 45.9 cm/sec E/E' lat: 7.6 E/E' med: 19.0 MV E/A: 2.3 MV dec slope: 430.8 cm/sec2 Ao V2 max: 239.2 cm/sec LV V1 max: 122.7 cm/sec Ao max P.9 mmHg LV V1 max P.0 mmHg Ao V2 mean: 157.9 cm/sec LV V1 mean P.8 mmHg Ao mean P.6 mmHg LV V1 mean: 93.9 cm/sec Ao V2 VTI: 41.4 cm LV V1 VTI: 21.4 cm AV (velocity ratio): 0.52 MALU(I,D): 1.6 cm2 MALU(V,D): 1.6 cm2 SV(LVOT): 66.0 ml PA V2 max: 129.7 cm/sec TR max nishi: 317.6 cm/sec TR max P.4 mmHg ECHO/Echo Complete Interpretation Summary Normal LV size. Mild concentric left ventricular hypertrophy. The left ventricular ejection fraction is 60 %. Stage 3 diastolic dysfunction. Stable appearing mechanical aortic valve apparatus. Mean aortic valve gradient 12 mmHg. Trivial eccentric mitral valve insufficiency. Ordering Physician: Albert Mojica Referring Physician: Bashir Cortez MD Performed By: Cha Mccarty RDCS 02/06/25 190 Date Albert Mojica MD CC: Dr. Bashir Cortez MD; Dr. Albert Mojica MD Date Dictated: 02/06/25 1256 Date Transcribed: 02/06/251899 [address]enographic [address] Reporter: Signed Normal [facility] Echocardiogram study reportO rdered By: Albert Mojica on 02-06-2025 Study report [facility] Cardiovascular Services [address] [place] [address] Echo Complete 02/06/25 1256 MR#: [id number] Acct: [id number] Name: GEORGE MCCLAIN Rep #:[id number] : 1935 89 From: Albert Cavazos Attending Dr: Dr. Albert Mojica MD S tatus: REG CLI Ordering Dr: Albert Mojica MD Date: Location: [facility] Sex: M C Admitted: Reason For Study : CONGESTIVE HEART FAILURE Procedure This was a 2D Doppler, Color Flow transthoracic echocardiogram. Exam performed in department. Left Ventricle Normal LV size. Mild concentric left ventricular hypertrophy. The left ventricular ejection fraction is 60 %. Stage 3 diastolic dysfunction. No regional wall motion abnormalities noted. Right Ventricle Normal RV size. Normal systolic function. Atria The left atrium is mildly enlarged. The right atrium is mildly enlarged. Mitral Valve There is moderate mitral annular calcification. Trivial eccentric mitral valve insufficiency. Tricuspid Valve Normal tricuspid valve. Mild to moderate (1-2+) tricuspid valve insufficiency. Pulmonary artery systolic pressure is 43 mmHg. Aortic Valve Peak aortic valve gradient 23 mmHg. Mean aortic valve gradient 12 mmHg. Stable appearing mechanical aortic valve apparatus. Pulmonic Valve Normal pulmonic valve. Great Vessels Normal aortic root. The pulmonary artery is normal size. Inferior vena cava collapse with respiration. Pericardium/Pleural No pericardial effusion. MMode/2D Measurements & Calculations LVIDd: 3.9 cm IVSd: 1.4 cm LVOT diam: 2.0 cm LVIDs: 1.6 cm LVPWd: 1.2 cm LVOT area: 3.1 cm2 RVDd: 3.9 cm FS: 57.9 % asc Aorta Diam: 4.2 cm LAV(MOD-bp): 75.0 ml LVAd ap4: 17.3 cm2 LAV(MOD-bp) Indexed: 40.7 ml/m2 LVLd ap4: 6.8 cm LAV(MOD-sp2): 79.5 ml EDV(MOD-sp4): 37.0 ml LAV(MOD-sp4): 65.9 ml EDV(sp4-el): 37.4 ml LVAs ap4: 10.0 cm2 LVLs ap4: 5.9 cm ESV(MOD-sp4): 14.7 ml ESV(sp4-el): 14.5 ml EF(MOD-sp4): 60.3 % EF(sp4-el): 61.3 % LVAd ap2: 16.7 cm2 SV(MOD-sp4): 22.3 ml SV(MOD-sp2): 22.9 ml LVLd ap2: 6.8 cm SI(MOD-sp4): 12.1 ml/m2 SI(MOD-sp2): 12.4 ml/m2 EDV(MOD-sp2): 33.0 ml EDV(sp2-el): 35.0 ml LVAs ap2: 8.1 cm2 LVLs ap2: 5.6 cm ESV(MOD-sp2): 10.1 ml ESV(sp2-el): 9.9 ml EF(MOD-sp2): 69.3 % SV(sp4-el): 22.9 ml Ao sinus diam: 3.[address] Junction: 2.7 cm LA dimension(2D): 5.4 cm LA A4 area: 23.9 cm2 RA A4 area: 22.2 cm2 TAPSE: 0.95 cm Time Measurements MV dec time: 0.25 sec Doppler Measurements & Calculations MV E max nishi: 107.2 cm/sec Lat Peak E' Nishi: 14.1 cm/sec Med Peak E' Nishi: 5.6 cm/sec MV A max nishi: 45.9 cm/sec E/E' lat: 7.6 E/E' med: 19.0 MV E/A: 2.3 MV dec slope: 430.8 cm/sec2 Ao V2 max: 239.2 cm/sec LV V1 max: 122.7 cm/sec Ao max P.9 mmHg LV V1 max P.0 mmHg Ao V2 mean: 157.9 cm/sec LV V1 mean P.8 mmHg Ao mean P.6 mmHg LV V1 mean: 93.9 cm/sec Ao V2 VTI: 41.4 cm LV V1 VTI: 21.4 cm AV (velocity ratio): 0.52 MALU(I,D): 1.6 cm2 MALU(V,D): 1.6 cm2 SV(LVOT): 66.0 ml PA V2 max: 129.7 cm/sec TR max nishi: 317.6 cm/sec TR max P.4 mmHg ECHO/Echo Complete Interpretation Summary Normal LV size. Mild concentric left ventricular hypertrophy. The left ventricular ejection fraction is 60 %. Stage 3 diastolic dysfunction. Stable appearing mechanical aortic valve apparatus. Mean aortic valve gradient 12 mmHg. Trivial eccentric mitral valve insufficiency. Ordering Physician: Albert Mojica Referring Physician: Bashir Cortez MD Performed By: Cha Mccarty RDCS 02/06/25 1901 Date _ Albert Mojica MD CC: Dr. Bashir Cortez MD; Dr. Albert Mojica MD ~ Date Dictated: 02/06/25 1256 Date Transcribed: 02/06/[address] Reporter: Signed [facility] Work Phone: JOE + Protein Elect, Serumon 01-24-2025 Albumin [Mass/Vol] 3.8 g/dL Normal 2.9-4.4 [facility] Comment on above: Order Comment: N Performed By: #### L 501.2940, L500.7290, L3300.1890, L101.9900, L100.0100 #### [facility] Laboratory [address] [place], [address] Albumin/Globulin [Mass ratio] 1.2 {ratio} Normal 0.7-1.7 [facility] Comment on above: Order Comment: N Performed By: #### L 501.6710, L500.4050, L3300.6400, L101.9900, L100.0100 #### [facility] Laboratory [address] [place], [address] JHPAE-4-MFIH 0.3 g/dL Normal 0.0-0.4 [facility] Comment on above: Order Comment: N Performed By: #### L 501.6710, L500.4050, L3300.6400, L101.9900, L100.0100 #### [facility] Laboratory [address] [place], [address] KVHER-4-MALC 0.8 g/dL Normal 0.4-1.0 [facility] Comment on above: Order Comment: N Performed By: #### L 501.6710, L500.4050, L3300.6400, L101.9900, L100.0100 #### [facility] Laboratory [address] [place], [address] BETA GLOBULIN 1.3 g/dL Normal 0.7-1.3 [facility] Comment on above: Order Comment: N Performed By: #### L 501.6710, L500.4050, L3300.6400, L101.9900, L100.0100 #### [facility] Laboratory [address] [place], [address] GAMMA GLOBULIN 1.0 g/dL Normal 0.4-1.8 [facility] Comment on above: Order Comment: N Performed By: #### L 501.6710, L500.4050, L3300.6400, L101.9900, L100.0100 #### [facility] Laboratory [address] [place], [address] Globulin (S) [Mass/Vol] 3.4 g/dL Normal 2.2-3.9 [facility] Comment on above: Order Comment: N Performed By: #### L 501.6710, L500.4050, L3300.6400, L101.9900, L100.0100 #### [facility] Laboratory [address] [place], [address] JOE RESULT,S Comment Normal . [facility] Comment on above: Order Comment: N Result Comment: No m onoclonality detected. Performed By: #### L 501.6710, L500.4050, L3300.6400, L101.9900, L100.0100 #### [facility] Laboratory [address] [place], [address] IMMUNOGLOB A QN 244 mg/dL Normal 61-437 [facility] Comment on above: Order Comment: N Performed By: #### L 501.6710, L500.4050, L3300.6400, L101.9900, L100.0100 #### [facility] Laboratory [address] [place], [address] IMMUNOGLOB G QN 1059 mg/dL Normal 603-1613 [facility] Comment on above: Order Comment: N Performed By: #### L 501.6710, L500.4050, L3300.6400, L101.9900, L100.0100 #### [facility] Laboratory [address] [place], [address] IMMUNOGLOB M QN 52 mg/dL Normal 15-143 [facility] Comment on above: Order Comment: N Performed By: #### L 501.6710, L500.4050, L3300.6400, L101.9900, L100.0100 #### [facility] Laboratory [address] [place], [address] M-Chris Not Observed Normal Not Observed [facility] Comment on above: Order Comment: N Performed By: #### L 501.6710, L500.4050, L3300.6400, L101.9900, L100.0100 #### [facility] Laboratory [address] [place], [address] NOTE: Comment Normal . [facility] Comment on above: Order Comment: N Result Comment: Prot ein electrophoresis scan will follow via computer, mail, or waiter/waitress informal delivery. Performed at: [address] [id number] Manager Floor: Phil Champion PhD, Phone: [phone] Performed By: #### L 501.6710, L500.4050, L3300.6400, L101.9900, L100.0100 #### [facility] [address] [place], [address] Protein [Mass/Vol] 7.2 g/dL Normal 6.0-8.5 [facility] Comment on above: Order Comment: N Performed By: #### L 501.6710, L500.4050, L3300.6400, L101.9900, L100.0100 #### [facility] Laboratory [address] [place], [address] Immunofixation Urineon 01-24 JOE Urine Comment: Normal . [facility] Comment on above: Result Comment: Pres ence of monoclonal protein is unclear at this time. Suggest repeat in 3 to 6 months if clinically indicated. Performed at: [address] [id number] Manager Floor: Phil Champion PhD, Phone: [phone] Performed By: #### L 501.6710, L500.4050, L3300.6400, L101.9900, L100.0100 #### [facility] [address] [place], [address] Albumin Elph [Mass/Vol]Order ed By: Chris Bradford on 01-21-2025 Albumin [Mass/Vol] 3.8 g/dL 2.9-4.4 [facility] Bilirubin directOrdered By: George Hood on 01-21-2025 Bilirubin.direct [Mass/Vol] 0.48 mg/dL High 0.00-0.3 0 [facility] Bilirubin, totalOrdered By: George Hood on 01-21-2025 Bilirubin [Mass/Vol] 1.28 mg/dL 0.00-1.30 [facility] International normalized rat io (INR) calculationOrdered By: Albert Mojica on 01-21-2025 INR Coag (Bld) [Relative time] 3.2 {INR} [facility] Interpretation of serum or p lasma protein pattern by immunofixation (narrative resultOrdered By: Chris Bradford on 01-21-2025 Protein Fractions Immunofixation Sathish [Interp] Not Observed g/dL Not Observed [facility] - Chemistry and C hemistry - challengeOrdered By: George Hood on 01-21-2025 AST [Catalytic activity/Vol] 47 U/L High <38 [facility] Liver Profileon 01-21-2025 Albumin [Mass/Vol] 4.5 g/dL Normal 3.4-4.8 [facility] Comment on above: Performed By: #### L 501.6710, L500.4050, L3300.6400, L101.9900, L100.0100 #### [facility] [address] [place], [address] ALK PHOS 104 U/L Normal 40-129 [facility] Comment on above: Performed By: #### L 501.6710, L500.4050, L3300.6400, L101.9900, L100.0100 #### [facility] [address] [place], [place], [address] ALT [Catalytic activity/Vol] 39 U/L Normal <=46 [facility] Comment on above: Performed By: #### L 501.6710, L500.4050, L3300.6400, L101.9900, L100.0100 #### [facility] [address] [place], [address] AST [Catalytic activity/Vol] 47 U/L High <=37 [facility] Comment on above: Performed By: #### L 501.6710, L500.4050, L3300.6400, L101.9900, L100.0100 #### [facility] [address] [place], [address] Bilirubin [Mass/Vol] 1.28 mg/dL Normal 0.00-1.30 [facility] Comment on above: Performed By: #### L 501.6710, L500.4050, L3300.6400, L101.9900, L100.0100 #### [facility] [address] [place], [address] Bilirubin.direct [Mass/Vol] 0.48 mg/dL High 0.00-0.3 0 [facility] Comment on above: Performed By: #### L 501.6710, L500.4050, L3300.6400, L101.9900, L100.0100 #### [facility] [address] [place], [address] Globulin (S) [Mass/Vol] 3.1 g/dL Normal 2.2-4.2 [facility] Comment on above: Performed By: #### L 501.6710, L500.4050, L3300.6400, L101.9900, L100.0100 #### [facility] [address] [place], [address] T PROT 7.6 g/dL Normal 5.9-8.4 [facility] Comment on above: Performed By: #### L 501.6710, L500.4050, L3300.6400, L101.9900, L100.0100 #### [facility] [address] [place], [address] No Panel InformationOrdered By: Chris Bradford on 01-21-2025 Addendum Document Comment . [facility] Comment on above: Protein electrophore sis scan will follow via computer,mail, or waiter/waitress informal delivery.Performed at: - [facility] [id number] Director: Phil Champion PhD, Phone: [phone] Prothrombin Time w/INRon INR Coag (PPP) [Relative time] 3.2 {INR} Normal [facility] Comment on above: Order Comment: Comme nts: STANDING ORDER-MAY DO FINGERSTICK Performed By: #### L 501.6710, L500.4050, L3300.6400, L101.9900, L100.0100 #### [facility] [address] [place], [address] PT Coag (PPP) [Time] 33.8 s High 11.7-14.9 [facility] Comment on above: Order Comment: Comme nts: STANDING ORDER-MAY DO FINGERSTICK Performed By: #### L 501.6710, L500.4050, L3300.6400, L101.9900, L100.0100 #### [facility] [address] [place], [address] Prothrombin timeOrdered By: Albert Mojica on 01-21-2025 PT Coag (PPP) [Time] 33.8 s High 11.7-14.9 [facility] Serum globulin measurementOr dered By: George Hood on 01-21-2025 Globulin (S) [Mass/Vol] 3.1 g/dL 2.2-4.2 [facility] Serum globulin measurement ( mass/volume)Ordered By: Chris Bradford on 01-21-2025 Globulin (S) [Mass/Vol] 3.4 g/dL 2.2-3.9 [facility] Serum or plasma IgA measurem ent (mass/volume)Ordered By: Chris Bradford on 01-21-2025 IgA [Mass/Vol] 244 mg/dL 61-437 [facility] Serum or plasma IgG measurem ent (mass/volume)Ordered By: Chris Bradford on 01-21-2025 IgG [Mass/Vol] 1059 mg/dL 603-1613 [facility] Serum or plasma alanine sandoval otransferase (ALT) measurementOrdered By: George Hood on 01-21-2025 ALT [Catalytic activity/Vol] 39 U/L <47 [facility] Serum or plasma albumin ana laura urement (mass/volume)Ordered By: George Hood on 01-21-2025 Albumin [Mass/Vol] 4.5 g/dL 3.4-4.8 [facility] Serum or plasma alkaline duong sphatase measurementOrdered By: George Hood on 01-21-2025 ALP [Catalytic activity/Vol] 104 U/L 40-129 [facility] Serum or plasma alpha 1 glob ulin measurement by electrophoresis (mass/volume)Ordered By: Chris Bradford on 01-21-2025 Alpha 1 globulin Elph [Mass/Vol] 0.3 g/dL 0.0-0.4 [facility] Alpha 1 globulin Elph [Mass/Vol] 0.8 g/dL 0.4-1.0 [facility] Serum or plasma beta globuli n measurement by electrophoresis (mass/volume)Ordered By: Chris Bradford on 01-21-2025 Beta globulin Elph [Mass/Vol] 1.3 g/dL 0.7-1.3 [facility] Serum or plasma gamma globul in measurement by electrophoresis (mass/volume)Ordered By: Chris Bradford on 01-21-2025 Gamma globulin Elph [Mass/Vol] 1.0 g/dL 0.4-1.8 [facility] Serum or plasma immunoelectr ophoresis interpretation (nominal result)Ordered By: Chris Bradford on 01-21-2025 Interpretation IEP [Interp] Comment . [facility] Comment on above: No monoclonality det ected. Serum or plasma protein ana laura urement (mass/volume)Ordered By: Chris Bradford on 01-21-2025 Protein [Mass/Vol] 7.2 g/dL 6.0-8.5 [facility] Total proteinOrdered By: Oziel Hood on 01-21-2025 Protein [Mass/Vol] 7.6 g/dL 5.9-8.4 [facility] Neurology Visit Reporton Neurology Visit Report [facility] [address], [address] [place] [address] OFFICE VISIT Date of Service: 01/09/25 MR#: [id number] Acct: [id number] Name: GEORGE MCCLAIN Rep #: [id number] : 1935 Provider: Dr. Chris haque MD Age/Sex: 89/M Location: [facility] [place] Status: Signed with Addenda ADDENDUM by Dr. Chris Bradford MD on 03/13/25 at 1624 Addendum Addendum (03/13/2025): The patient began to experience nausea and upset stomach after increasing his dose of galantamine ER to 24 mg every morning. Galantamine ER will be reduced to galantamine ER 16 mg every morning (to be taken with food). 03/13/25 1624 Date Chris Bradford MD cc: * Signed HPI HPI Chief Complaint: Est Care Details: Interim History: George returns for follow-up visit. He has a history of hypertension, hyperlipidemia, atrial fibrillation, [place] aortic valve replacement in 2000, and sleep apnea (on CPAP). He presents to the office with his and daughter. He has been experiencing some memory difficulty since around 2018. His memory difficulty had slightly worsened over time and he has had some further worsening of his memory within recent months manifesting with increased forgetfulness of recent conversations. He states that he has had some difficulty remembering past events. His helps him in management of his medications. He has occasionally become briefly lost while driving. He has had some difficulty following directions for use of tools and other devices at home (he attributes this in part to his vision impairment due to macular degeneration). He has chronic bilateral hearing loss and uses hearing aids. He stated that his performance of calculations to manage his finances has been slower. He had a syncopal episode and resultant fall in 2021 and sustained a traumatic small left parafalcine subarachnoid hemorrhage (initially interpreted as trace left parafalcine acute subdural hematoma). This did not require surgical intervention. He stated that he has had some left leg weakness and some gait imbalance since his syncopal episode and fall in 2021. At his initial evaluation in November 2023 at this office, he denied having headaches or vertigo. He has had occasional lightheadedness. He has had numbness in the feet since around 2020. Laboratory studies in 2023 revealed a mildly elevated serum glucose and abnormal serum free light chains. Memantine caused easy irritability and was discontinued. He is taking donepezil possibly 5 mg nightly (possibly initiated in early 2023) and has been tolerating this well; donepezil 10 mg nightly caused irritability. Mini-Mental status exam score was 28/30 in November 2023. Physical Exam: Neuro: The patient is awake; he is mildly bradyphrenic; speech is fluent; Mini-Mental status exam score is 25/30 Neck: No bruits Heart: Irregularly irregular Supplemental Info Cardiac echo (11/12/2020): Normal LV size. Moderate concentric left ventricular hypertrophy. Left ventricular systolic function is normal. The estimated ejection fraction is 55 %. Stage 3 diastolic dysfunction. The left atrium is severely enlarged. The right atrium is severely enlarged. Pulmonary artery systolic pressure is 44 mmHg. Head and neck CTA (07/21/2022): COMPARISON: CT of the head, July 21, 2022. FINDINGS: Normal bilateral petrous carotid arteries. There is calcified plaque formation of the right cavernous carotid artery, without a cross-sectional luminal stenosis. There is calcified plaque formation of the left cavernous carotid artery, without a cross-sectional luminal stenosis. Normal right A1 segments of the anterior cerebral artery. Normal left A1 segments of the anterior cerebral artery. There is non-visualization of the anterior communicating artery (ACOM). Normal bilateral A2 segments of the anterior cerebral arteries. Normal right M1 and M2 segments of the middle cerebral arteries, with a normal M1 bifurcation. Normal left M1 and M2 segments of the middle cerebral arteries, with a normal M1 bifurcation. Normal right posterior communicating artery (PCOM). There is non-visualization of the left posterior communicating artery (PCOM). Normal bilateral vertebral arteries. Normal basilar artery with a normal basilar bifurcation. The visualized bilateral superior cerebellar (SCA) arteries are normal. Normal bilateral P1, P2 and visualized P3 segments of the posterior cerebral arteries. There is no demonstrated aneurysm of the [place] of [place]. There is no demonstrated abnormality of the visualized brain. AORTIC ARCH: Atherosclerotic changes of the aortic arch without dissection or aneurysm. Normal origins of the brachiocephalic, left common carotid, and left subclavian arteries. RIGHT CAROTID ARTERIES: Normal right common carotid artery (more content not included)... Normal [facility] Prealbumin [id number] Prealbumin [Mass/Vol] 21 mg/dL Normal 9-32 [facility] Comment on above: Result Comment: Perf ormed at: CB - [facility] [address] [id number] Manager Floor: Phil Champion PhD, Phone: [phone] Performed By: #### L 501.0510, L500.4050, L3300.2680, L101.9900, L100.0100 #### [facility] [address] [place], [address] Absolute lymphocyte countOrd ered By: Bashir Cortez on 01-04-2025 Lymphocytes Auto (Unsp spec) [#/Vol] 2.08 10*3/uL 0.83-4.51 [facility] Absolute neutrophil countOrd ered By: Bashir Cortez on 01-04-2025 Neutrophils (Bld) [#/Vol] 9.0 10*3/uL High 2.0-7.7 [facility] Anion gap in Serum or Plasma Ordered By: Bashir Cortez on 01-04-2025 Anion gap [Moles/Vol] 13 mmol/L 5-15 [facility] Automated lymphocyte count a s percentage of total leukocytesOrdered By: Bashir Cortez on 01-04-2025 Lymphocytes/100 WBC Auto (Unsp spec) 16.5 % Low 19-41 [facility] BUN/creatinine ratioOrdered By: Bashir Cortez on 01-04-2025 Urea nitrogen/Creatinine [Mass ratio] 21.1 mg/mg High 10-20 [facility] Basophil percentageOrdered B y: Bashir Cortez on 01-04-2025 Basophils/100 WBC (Bld) 1.0 % 0-1 [facility] Bilirubin, totalOrdered By: Bashir Cortez on 01-04-2025 Bilirubin [Mass/Vol] 1.05 mg/dL 0.00-1.30 [facility] CBC W/Diff, Automatedon 05-08 27-2024 Absolute Lymph 2.08 X10 3/uL Normal 0.83-4.51 [facility] Comment on above: Performed By: #### L 501.6710, L500.4050, L3300.6400, L101.9900, L100.0100 #### [facility] [address] [place], [address] Absolute Neut 9.0 X10 3/uL High 2.0-7.7 [facility] Comment on above: Performed By: #### L 501.6710, L500.4050, L3300.6400, L101.9900, L100.0100 #### [facility] [address] [place], [address] Basophils/100 WBC (Bld) 1.0 % Normal 0-1 [facility] Comment on above: Performed By: #### L 501.6710, L500.4050, L3300.6400, L101.9900, L100.0100 #### [facility] [address] [place], [address] Eosinophils/100 WBC (Bld) 2.3 % Normal 0-5 [facility] Comment on above: Performed By: #### L 501.6710, L500.4050, L3300.6400, L101.9900, L100.0100 #### [facility] [address] [place], [address] Erythrocyte distribution width (RBC) [Ratio] 14.6 % Normal 11.6-14.6 [facility] Comment on above: Performed By: #### L 501.6710, L500.4050, L3300.6400, L101.9900, L100.0100 #### [facility] [address] [place], [address] Hematocrit (Bld) [Volume fraction] 44.3 % Normal 40-54 [facility] Comment on above: Performed By: #### L 501.6710, L500.4050, L3300.6400, L101.9900, L100.0100 #### [facility] [address] [place], [address] Hemoglobin (Bld) [Mass/Vol] 14.3 g/dL Normal 13.0-16. 5 [facility] Comment on above: Performed By: #### L 501.6710, L500.4050, L3300.6400, L101.9900, L100.0100 #### [facility] [address] [place], [address] IG% 0.600 Normal 0.0-0.9 [facility] Comment on above: Result Comment: IG% - Immature Granulocytes (promyelocytes, myelocytes and metamyelocytes) > 1% indicates that a LEFT SHIFT is Present. Performed By: #### L 501.6710, L500.4050, L3300.6400, L101.9900, L100.0100 #### [facility] [address] [place], [address] Lymphocytes/100 WBC (Bld) 16.5 % Low 19-41 [facility] Comment on above: Performed By: #### L 501.6710, L500.4050, L3300.6400, L101.9900, L100.0100 #### [facility] [address] [place], [address] MCH (RBC) [Entitic mass] 29.7 pg Normal 27.0-32.0 [facility] Comment on above: Performed By: #### L 501.6710, L500.4050, L3300.6400, L101.9900, L100.0100 #### [facility] [address] [place], [address] MCHC (RBC) [Mass/Vol] 32.3 g/dL Normal 32-36 [facility] Comment on above: Performed By: #### L 501.6710, L500.4050, L3300.6400, L101.9900, L100.0100 #### [facility] [address] [place], [address] MCV (RBC) [Entitic vol] 91.9 fL Normal 80-94 [facility] Comment on above: Performed By: #### L 501.6710, L500.4050, L3300.6400, L101.9900, L100.0100 #### [facility] [address] [place], [address] Monocytes/100 WBC (Bld) 8.5 % Normal 0-10 [facility] Comment on above: Performed By: #### L 501.6710, L500.4050, L3300.6400, L101.9900, L100.0100 #### [facility] [address] [place], [address] Neutrophils/100 WBC (Bld) 71.1 % High 47-70 [facility] Comment on above: Performed By: #### L 501.6710, L500.4050, L3300.6400, L101.9900, L100.0100 #### [facility] [address] [place], [address] Nucleated RBC (Bld) [#/Vol] 0 10*3/uL Normal 0-5 [facility] Comment on above: Performed By: #### L 501.6710, L500.4050, L3300.6400, L101.9900, L100.0100 #### [facility] [address] [place], [address] Platelet mean volume (Bld) [Entitic vol] 9.7 fL Normal 6.2-12.0 [facility] Comment on above: Performed By: #### L 501.6710, L500.4050, L3300.6400, L101.9900, L100.0100 #### [facility] [address] [place], [address] Platelets (Bld) [#/Vol] 316 10*3/uL Normal 150-450 [facility] Comment on above: Performed By: #### L 501.6710, L500.4050, L3300.6400, L101.9900, L100.0100 #### [facility] [address] [place], [address] RBC (Bld) [#/Vol] 4.82 10*6/uL Normal 4.6-6.2 [facility] Comment on above: Performed By: #### L 501.6710, L500.4050, L3300.6400, L101.9900, L100.0100 #### [facility] [address] [place], [address] RDW SD 49.1 fl High 35.1-43.9 [facility] Comment on above: Performed By: #### L 501.6710, L500.4050, L3300.6400, L101.9900, L100.0100 #### [facility] [address] [place], [address] WBC (Bld) [#/Vol] 12.6 10*3/uL High 4.4-11.0 [facility] Comment on above: Performed By: #### L 501.6710, L500.4050, L3300.6400, L101.9900, L100.0100 #### [facility] [address] [place], [address] CRPon 01-04-2025 C-REACTIVE PROT < 3.00 Normal 0.0-3.0 [facility] Comment on above: Performed By: #### L 501.6710, L500.4050, L3300.6400, L101.9900, L100.0100 #### [facility] [address] [place], [address] Carbon dioxide, total [Moles /volume] in Central venous bloodOrdered By: Bashir Cortez on 01-04-2025 CO2 [Moles/Vol] 20.6 mmol/L Low 21.0-32.0 [facility] Chloride assayOrdered By: Jerica Cortez on 01-04-2025 Chloride [Moles/Vol] 105 mmol/L 98-108 [facility] Comprehensive Metabolic Prof ilon 01-04-2025 Albumin [Mass/Vol] 4.1 g/dL Normal 3.4-4.8 [facility] Comment on above: Performed By: #### L 501.6710, L500.4050, L3300.6400, L101.9900, L100.0100 #### [facility] [address] [place], [address] Albumin/Globulin [Mass ratio] 1.3 {ratio} Normal 0.9-2.4 [facility] Comment on above: Performed By: #### L 501.6710, L500.4050, L3300.6400, L101.9900, L100.0100 #### [facility] [address] [place], [address] ALK PHOS 135 U/L High 40-129 [facility] Comment on above: Performed By: #### L 501.6710, L500.4050, L3300.6400, L101.9900, L100.0100 #### [facility] [address] [place], [address] ALT [Catalytic activity/Vol] 35 U/L Normal <=46 [facility] Comment on above: Performed By: #### L 501.6710, L500.4050, L3300.6400, L101.9900, L100.0100 #### [facility] [address] [place], [address] AST [Catalytic activity/Vol] 47 U/L High <=37 [facility] Comment on above: Performed By: #### L 501.6710, L500.4050, L3300.6400, L101.9900, L100.0100 #### [facility] [address] [place], [address] Bilirubin [Mass/Vol] 1.05 mg/dL Normal 0.00-1.30 [facility] Comment on above: Performed By: #### L 501.6710, L500.4050, L3300.6400, L101.9900, L100.0100 #### [facility] [address] [place], [address] BUN/CRE 21.1 RATIO High 10-20 [facility] Comment on above: Performed By: #### L 501.6710, L500.4050, L3300.6400, L101.9900, L100.0100 #### [facility] [address] [place], [address] Calcium [Mass/Vol] 9.8 mg/dL Normal 7.6-11.0 [facility] Comment on above: Performed By: #### L 501.6710, L500.4050, L3300.6400, L101.9900, L100.0100 #### [facility] [address] [place], [address] Chloride [Moles/Vol] 105 mmol/L Normal 98-108 [facility] Comment on above: Performed By: #### L 501.6710, L500.4050, L3300.6400, L101.9900, L100.0100 #### [facility] [address] [place], [address] CO2 [Moles/Vol] 20.6 mmol/L Low 21.0-32.0 [facility] Comment on above: Performed By: #### L 501.6710, L500.4050, L3300.6400, L101.9900, L100.0100 #### [facility] [address] [place], [address] Creatinine [Mass/Vol] 1.21 mg/dL High 0.70-1.20 [facility] Comment on above: Performed By: #### L 501.6710, L500.4050, L3300.6400, L101.9900, L100.0100 #### [facility] [address] [place], [address] GAP 13 Normal 5-15 [facility] Comment on above: Performed By: #### L 501.6710, L500.4050, L3300.6400, L101.9900, L100.0100 #### [facility] [address] [place], [address] GFR/1.73 sq M.predicted among non-blacks MDRD (S/P/Bld) [Vol rate/Area] 58 mL/min/{1.73_m2} Low >60 [facility] Comment on above: Result Comment: mL/m in/1.73m2 CKD-EPI Creatinine Equation (2020) Performed By: #### L 501.6710, L500.4050, L3300.6400, L101.9900, L100.0100 #### [facility] [address] [place], [address] Globulin (S) [Mass/Vol] 3.1 g/dL Normal 2.2-4.2 [facility] Comment on above: Performed By: #### L 501.6710, L500.4050, L3300.6400, L101.9900, L100.0100 #### [facility] [address] [place], [address] Glucose [Mass/Vol] 146 mg/dL High 70-99 [facility] Comment on above: Performed By: #### L 501.6710, L500.4050, L3300.6400, L101.9900, L100.0100 #### [facility] [address] [place], [address] Potassium [Moles/Vol] 4.3 mmol/L Normal 3.3-5.1 [facility] Comment on above: Performed By: #### L 501.6710, L500.4050, L3300.6400, L101.9900, L100.0100 #### [facility] [address] [place], [address] Sodium [Moles/Vol] 139 mmol/L Normal 133-145 [facility] Comment on above: Performed By: #### L 501.6710, L500.4050, L3300.6400, L101.9900, L100.0100 #### [facility] [address] [place], [address] T PROT 7.3 g/dL Normal 5.9-8.4 [facility] Comment on above: Performed By: #### L 501.6710, L500.4050, L3300.6400, L101.9900, L100.0100 #### [facility] [address] [place], [address] Urea nitrogen [Mass/Vol] 26 mg/dL High 4-19 [facility] Comment on above: Performed By: #### L 501.6710, L500.4050, L3300.6400, L101.9900, L100.0100 #### [facility] [address] [place], [address] Eosinophil percentageOrdered By: Bashir Cortez on 01-04-2025 Eosinophils/100 WBC (Bld) 2.3 % 0-5 [facility] Erythrocyte Sed Rateon 01-04 SED RATE 17 mm/hr Normal 0-20 [facility] Comment on above: Performed By: #### L 501.6710, L500.4050, L3300.6400, L101.9900, L100.0100 #### [facility] [address] [place], [address] Erythrocyte distribution wid th ratioOrdered By: Bashir Cortez on 01-04-2025 Erythrocyte distribution width (RBC) [Ratio] 14.6 % 11.6-14.6 [facility] Erythrocyte distribution wid th standard deviationOrdered By: Jfk Johnson Rehabilitation Institutehannah Cortez on 01-04-2025 Erythrocyte distribution width (RBC) [Ratio] 49.1 fl High 35.1-43.9 [facility] Erythrocyte sedimentation ra teOrdered By: Bashir Cortez on 01-04-2025 ESR (Bld) [Velocity] 17 mm/h 0-20 [facility] Glomerular filtration rate ( GFR) estimation/1.73 sq m using serum, plasma, or whole bOrdered By: Bashir Cortez on 01-04-2025 GFR/1.73 sq M.predicted among non-blacks MDRD (S/P/Bld) [Vol rate/Area] 58 mL/min/{1.73_m2} Low >60 [facility] Comment on above: mL/min/1.73m2 CKD-EP I Creatinine Equation (2020) Hematocrit Auto (Bld) [Volum e fraction]Ordered By: Bashir Cortez on 01-04-2025 Hematocrit (Bld) [Volume fraction] 44.3 % 40-54 [facility] Hemoglobin measurementOrdere d By: Bashir Cortez on 01-04-2025 Hemoglobin (Bld) [Mass/Vol] 14.3 g/dL 13.0-16. 5 [facility] Immature granulocytes/100 WB C Auto (Bld)Ordered By: Bashir Cortez on 01-04-2025 Immature granulocytes/100 WBC (Bld) 0.600 % 0.0-0.9 [facility] Comment on above: IG% - Immature Granu locytes (promyelocytes, myelocytes and metamyelocytes) > 1% indicates that a LEFT SHIFT is Present. Laboratory - Chemistry and C hemistry - challengeOrdered By: Bashir Cortez on 01-04-2025 AST [Catalytic activity/Vol] 47 U/L High <38 [facility] MCV (mean corpuscular volume ) determinationOrdered By: Bashir Cortez on 01-04-2025 MCV (RBC) [Entitic vol] 91.9 fL 80-94 [facility] Mean corpuscular hemoglobin (MCH) determinationOrdered By: Bashir Cortez on 01-04-2025 MCH (RBC) [Entitic mass] 29.7 pg 27.0-32.0 [facility] Mean corpuscular hemoglobin concentration (MCHC) determinationOrdered By: Bashir Cortez on 01-04-2025 MCHC (RBC) [Mass/Vol] 32.3 g/dL 32-36 [facility] Mean platelet volume determi nationOrdered By: Bashir Cortez on 01-04-2025 Platelet mean volume (Bld) [Entitic vol] 9.7 fL 6.2-12.0 [facility] Monocyte percentageOrdered B y: Bashir Cortez on 01-04-2025 Monocytes/100 WBC (Bld) 8.5 % 0-10 [facility] Neutrophil percentageOrdered By: Bashir Cortez on 01-04-2025 Neutrophils/100 WBC (Bld) 71.1 % High 47-70 [facility] Nucleated red blood cell per centageOrdered By: Bashir Cortez on 01-04-2025 Nucleated RBC/100 WBC (Bld) [Ratio] 0 % 0-5 [facility] Platelet countOrdered By: Jerica Cortez on 01-04-2025 Platelets (Bld) [#/Vol] 316 10*3/uL 150-450 [facility] Potassium measurement (mass/ volume)Ordered By: Bashir Cortez on 01-04-2025 Potassium (Unsp spec) [Mass/Vol] 4.3 mmol/L 3.3-5.1 [facility] RBC Auto (Bld) [#/Vol]Ordere d By: Bashir Cortez on 01-04-2025 RBC (Bld) [#/Vol] 4.82 10*6/uL 4.6-6.2 [facility] Serum creatinine measurement (mass/volume)Ordered By: Bashir Cortez on 01-04-2025 Creatinine [Mass/Vol] 1.21 mg/dL High 0.70-1.20 [facility] Serum globulin measurementOr dered By: Bashir Cortez on 01-04-2025 Globulin (S) [Mass/Vol] 3.1 g/dL 2.2-4.2 [facility] Serum glucose measurement (m ass/volume)Ordered By: Bashir Cortez on 01-04-2025 Glucose [Mass/Vol] 146 mg/dL High 70-99 [facility] Serum or plasma C reactive p rotein measurement (mass/volume)Ordered By: Bashir Cortez on 01-04-2025 CRP [Mass/Vol] mg/L 0.0-3.0 [facility] Serum or plasma alanine sandoval otransferase (ALT) measurementOrdered By: Bashir Cortez on 01-04-2025 ALT [Catalytic activity/Vol] 35 U/L <47 [facility] Serum or plasma albumin ana laura urement (mass/volume)Ordered By: Bashir Cortez on 01-04-2025 Albumin [Mass/Vol] 4.1 g/dL 3.4-4.8 [facility] Serum or plasma albumin/glob ulin mass ratioOrdered By: Bashir Cortez on 01-04-2025 Albumin/Globulin [Mass ratio] 1.3 {ratio} 0.9-2.4 [facility] Serum or plasma alkaline duong sphatase measurementOrdered By: Bashir Cortez on 01-04-2025 ALP [Catalytic activity/Vol] 135 U/L High 40-129 [facility] Serum or plasma calcium ana laura urement (mass/volume)Ordered By: Bashir Cortez on 01-04-2025 Calcium [Mass/Vol] 9.8 mg/dL 7.6-11.0 [facility] Serum or plasma urea nitroge n measurement (mass/volume)Ordered By: Bashir Cortez on 01-04-2025 Urea nitrogen [Mass/Vol] 26 mg/dL High 4-19 [facility] Serum prealbumin measurement by immunoassayOrdered By: Bashir Cortez on 01-04-2025 Prealbumin [Mass/Vol] 21 mg/dL 9-32 [facility] Comment on above: Performed at: [address] [id number] Director: Phil Champion PhD, Phone: [phone] Sodium levelOrdered By: Stefaniaoleg quevedo Diego on 01-04-2025 Sodium [Moles/Vol] 139 mmol/L 133-145 [facility] Total proteinOrdered By: Stefania isrick Diego on 01-04-2025 Protein [Mass/Vol] 7.3 g/dL 5.9-8.4 [facility] White blood cell (WBC) count Ordered By: Bashir Cortez on 01-04-2025 WBC (Bld) [#/Vol] 12.6 10*3/uL High 4.4-11.0 [facility] Misc.on 12-30-2024 [facility] Misc. 4 Normal [facility] Comment on above: Result Comment: TEST RESULTS LIMITS Anti-Synthetase Profile (RDL) Anti-Marisel-1 Ab (RDL) <20 Units <20 Anti-PL-7 Ab (RDL), Negative Negative Anti-PL-12 Ab (RDL), Negative Negative Anti-EJ Ab (RDL), Negative Negative Anti-OJ Ab (RDL), Negative Negative Interpretation for Anti-Marisel-1: Negative: <20 Weak Positive: 20 - 39 Moderate Positive: 40 - 80 Strong Positive: >80 Given overlapping phenotypes, autoantibody positivity should be interpreted in the context of clinical and other laboratory findings. TESTING PERFORMED AT [facility]. ORIGINAL REPORT ON FILE IN LAB CONTAINS ADDITIONAL TEST SITE INFORMATION. Performed By: #### L 501.6710, L500.4050, L3300.6400, L101.9900, L100.0100 #### [facility] Laboratory [address] [place], [place], [address] Anti-Smooth Muscle ABSon ANTISMOOTH MUSC Normal [facility] Comment on above: Result Comment: TEST RESULTS LIMITS Actin (Smooth Muscle) Antibody 11 Units 0-19 Negative 0 - 19 Weak positive 20 - 30 Moderate to strong positive >30 Actin Antibodies are found in 52-85% of patients with autoimmune hepatitis or chronic active hepatitis and in 22% TESTING PERFORMED AT [facility]. ORIGINAL REPORT ON FILE IN LAB CONTAINS ADDITIONAL TEST SITE INFORMATION. Performed By: #### L 501.6710, L500.4050, L3300.6400, L101.9900, L100.0100 #### [facility] [address] [place], [place], [address] Absolute lymphocyte countOrd ered By: Albert Mojica on 12-22-2024 Lymphocytes Auto (Unsp spec) [#/Vol] 1.45 10*3/uL 0.83-4.51 [facility] Absolute neutrophil countOrd ered By: Albert Galina on 12-22-2024 Neutrophils (Bld) [#/Vol] 7.6 10*3/uL 2.0-7.7 [facility] Anion gap in Serum or Plasma Ordered By: Albert Mojica on 12-22-2024 Anion gap [Moles/Vol] 11 mmol/L 5-15 [facility] Automated lymphocyte count a s percentage of total leukocytesOrdered By: Albert Mojica on 12-22-2024 Lymphocytes/100 WBC Auto (Unsp spec) 13.0 % Low 19-41 [facility] BUN/creatinine ratioOrdered By: Albert Mojica on 12-22-2024 Urea nitrogen/Creatinine [Mass ratio] 17.3 mg/mg 10-20 [facility] Basic Metabolic Profile (BMP )on 12-22-2024 BUN/CRE 17.3 RATIO Normal 10-20 [facility] Comment on above: Performed By: #### L 300.3900 #### [facility] Laboratory [address] [place], [address] Calcium [Mass/Vol] 9.2 mg/dL Normal 7.6-11.0 [facility] Comment on above: Performed By: #### L 300.3900 #### [facility] [address] [place], [address] Chloride [Moles/Vol] 108 mmol/L Normal 98-108 [facility] Comment on above: Performed By: #### L 300.3900 #### [facility] [address] [place], [address] CO2 [Moles/Vol] 21.5 mmol/L Normal 21.0-32.0 [facility] Comment on above: Performed By: #### L 300.3900 #### [facility] [address] [place], [address] Creatinine [Mass/Vol] 1.06 mg/dL Normal 0.70-1.20 [facility] Comment on above: Performed By: #### L 300.3900 #### [facility] [address] [place], [address] GAP 11 Normal 5-15 [facility] Comment on above: Performed By: #### L 300.3900 #### [facility] [address] [place], [address] GFR/1.73 sq M.predicted among non-blacks MDRD (S/P/Bld) [Vol rate/Area] 68 mL/min/{1.73_m2} Normal >60 [facility] Comment on above: Result Comment: mL/m in/1.73m2 CKD-EPI Creatinine Equation (2020) Performed By: #### L 300.3900 #### [facility] [address] [place], [address] Glucose [Mass/Vol] 105 mg/dL High 70-99 [facility] Comment on above: Performed By: #### L 300.3900 #### [facility] [address] [place], [address] Potassium [Moles/Vol] 3.6 mmol/L Normal 3.3-5.1 [facility] Comment on above: Performed By: #### L 300.3900 #### [facility] [address] [place], [address] Sodium [Moles/Vol] 140 mmol/L Normal 133-145 [facility] Comment on above: Performed By: #### L 300.3900 #### [facility] [address] [place], [address] Urea nitrogen [Mass/Vol] 18 mg/dL Normal 4-19 [facility] Comment on above: Performed By: #### L 300.3900 #### [facility] [address] [place], [address] Basophil percentageOrdered B y: [place] Galina on 12-22-2024 Basophils/100 WBC (Bld) 1.0 % 0-1 [facility] CBC W/Diff, Automatedon Absolute Lymph 1.45 X10 3/uL Normal 0.83-4.51 [facility] Comment on above: Performed By: #### L 300.3900 #### [facility] [address] [place], [address] Absolute Neut 7.6 X10 3/uL Normal 2.0-7.7 [facility] Comment on above: Performed By: #### L 300.3900 #### [facility] [address] [place], [address] Basophils/100 WBC (Bld) 1.0 % Normal 0-1 [facility] Comment on above: Performed By: #### L 300.3900 #### [facility] [address] [place], [address] Eosinophils/100 WBC (Bld) 5.8 % High 0-5 [facility] Comment on above: Performed By: #### L 300.3900 #### [facility] [address] [place], [address] Erythrocyte distribution width (RBC) [Ratio] 13.9 % Normal 11.6-14.6 [facility] Comment on above: Performed By: #### L 300.3900 #### [facility] [address] [place], [address] Hematocrit (Bld) [Volume fraction] 40.1 % Normal 40-54 [facility] Comment on above: Performed By: #### L 300.3900 #### [facility] [address] [place], [address] Hemoglobin (Bld) [Mass/Vol] 13.1 g/dL Normal 13.0-16. 5 [facility] Comment on above: Performed By: #### L 300.3900 #### [facility] [address] [place], [address] IG% 0.600 Normal 0.0-0.9 [facility] Comment on above: Result Comment: IG% - Immature Granulocytes (promyelocytes, myelocytes and metamyelocytes) > 1% indicates that a LEFT SHIFT is Present. Performed By: #### L 300.3900 #### [facility] [address] [place], [address] Lymphocytes/100 WBC (Bld) 13.0 % Low 19-41 [facility] Comment on above: Performed By: #### L 300.3900 #### [facility] [address] [place], [address] MCH (RBC) [Entitic mass] 29.8 pg Normal 27.0-32.0 [facility] Comment on above: Performed By: #### L 300.3900 #### [facility] [address] [place], [address] MCHC (RBC) [Mass/Vol] 32.7 g/dL Normal 32-36 [facility] Comment on above: Performed By: #### L 300.3900 #### [facility] [address] [place], [address] MCV (RBC) [Entitic vol] 91.3 fL Normal 80-94 [facility] Comment on above: Performed By: #### L 300.3900 #### [facility] [address] [place], [address] Monocytes/100 WBC (Bld) 11.4 % High 0-10 [facility] Comment on above: Performed By: #### L 300.3900 #### [facility] [address] [place], [address] Neutrophils/100 WBC (Bld) 68.2 % Normal 47-70 [facility] Comment on above: Performed By: #### L 300.3900 #### [facility] [address] [place], [address] Nucleated RBC (Bld) [#/Vol] 0 10*3/uL Normal 0-5 [facility] Comment on above: Performed By: #### L 300.3900 #### [facility] [address] [place], [address] Platelet mean volume (Bld) [Entitic vol] 8.9 fL Normal 6.2-12.0 [facility] Comment on above: Performed By: #### L 300.3900 #### [facility] [address] [place], [address] Platelets (Bld) [#/Vol] 391 10*3/uL Normal 150-450 [facility] Comment on above: Performed By: #### L 300.3900 #### [facility] [address] [place], [address] RBC (Bld) [#/Vol] 4.39 10*6/uL Low 4.6-6.2 [facility] Comment on above: Performed By: #### L 300.3900 #### [facility] [address] [place], [address] RDW SD 47.4 fl High 35.1-43.9 [facility] Comment on above: Performed By: #### L 300.3900 #### [facility] [address] [place], [address] WBC (Bld) [#/Vol] 11.2 10*3/uL High 4.4-11.0 [facility] Comment on above: Performed By: #### L 300.3900 #### [facility] [address] [place], [address] Carbon dioxide, total [Moles /volume] in Central venous bloodOrdered By: Albert Mojica on 12-22-2024 CO2 [Moles/Vol] 21.5 mmol/L 21.0-32.0 [facility] Cardiology Visit Reporton Cardiology Visit Report [facility] [address] [place] [address] OFFICE VISIT Date of Service: 12/22/24 MR#: [id number] Acct: [id number] Name: GEORGE MCCLAIN Rep #: [id number] : 1935 Provider: Dr. Albert Mojica MD Age/Sex: 89/M [place] [facility] Signed HPI HPI History of Present Illness Details: George Mcclain is an 89-year-old gentleman who presents to the office today for a cardiovascular visit. 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 He is also status post coronary artery bypass surgery with a saphenous vein graft to the diagonal branch and saphenous vein graft to the obtuse marginal branch. He had attempted cardioversion for his atrial fibrillation, as well as an ablation in 2014 which was unsuccessful. In September 2020 he was admitted with bronchitis and congestive heart failure his echocardiogram demonstrated an ejection fraction of 65% with pulmonary systolic pressures of 80 mmHg. He was diuresed, and a MT was performed which demonstrated a peak gradient across his aortic valve of 59 mmHg and a mean gradient of 30 mmHg his diuretics were adjusted and he has improved significantly with his most recent echocardiogram demonstrating pulmonary artery systolic pressures of 44 mmHg. The gradient across the aortic valve was 38 over 17 mmHg. In June of 2022, he had a fall and sustained a subdural hematoma and needed to be transferred to [facility]. He was evaluated and observed and he underwent an echocardiographic evaluation which demonstrated an ejection fraction of 58% and a stable [employer] prosthetic aortic valve. His pulm artery systolic pressure was 44 mmHg. While he was in the hospital he was noted to be bradycardic and his beta-pradeep was held. He was discharged with a 14-day event monitor which demonstrated some bradycardic episodes but no significant pauses were noted. He has followed up with us here in the office twice since his stroke and he appears to be doing quite well and stable. He tells me that he seen the warehouse handler and they think that he may have pulmonary fibrosis and may be starting him on a new medication called Ovey From a cardiac standpoint, the patient is doing well. He does acknowledge occasional palpitation. He denies chest pain, pressure or heaviness. He denies SOB, Orthopnea, and PND. He does not have bleeding issues; no blood in urine, stool or nosebleeds. His exercise capacity has reduced quite a bit. He does not have edema, or sudden weight gain. He denies dizziness, lightheadedness, syncopal or near syncopal episodes, and headaches. 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 Elizabeth 11/13/23 12/22/24 History Diego 11/12/2023. warfarin 4 mg tablet 4 mg PO .COMPLEX #120 tabs 01/06/2 4 12/22/24 Rx lutein 20 mg tablet 20 mg PO QDAY 06/27/24 12/22/24 Hi story magnesium citrate 100 mg capsule 100 mg PO QHS 06/27/24 12/22/24 Hi story donepezil 5 mg tablet 5 mg PO QHS #90 tabs 09/15/24 05/0 09/17 Rx albuterol sulfate 90 mcg/actuation 2 puff inhalation 4X/DAY PRN cou gh 12/22/24 12/22/24 History aerosol inhaler bupropion HCl 150 mg 24 hr tablet, 150 mg PO QDAY 12/22/24 12/22/24 History extended release calcium 250 mg (as citrate 1 tab PO QDAY 12/22/24 12/22/24 Hi story malate)-vit D3 2.5 mcg (100 unit) tablet dapagliflozin propanediol 10 mg 10 mg PO QAM #60 tabs 12/22/2409/17 Rx tablet (Farxiga) fluticasone furoate 200 1 inh inhalation QDAY 12/22/2409/17 History mcg/actuation blister powder for inhalation (Arnuity Ellipta) furosemide 40 mg tablet 40 mg PO BID water 12/22/24 History lutein 25 mg-zeaxanthin 5 mg 1 cap PO DAILY 12/22/24 12/22/24 H istory capsule spironolactone 25 mg tablet 25 mg PO QDAY #60 tabs 12/22/24 Rx Have you fallen in the past year?: No [facility] Medical History ... Normal [facility] Chloride assayOrdered By: Yadiel Mojica on 12-22-2024 Chloride [Moles/Vol] 108 mmol/L 98-108 [facility] Eosinophil percentageOrdered By: Albert Mojica on 12-22-2024 Eosinophils/100 WBC (Bld) 5.8 % High 0-5 [facility] Erythrocyte distribution wid th ratioOrdered By: Albert Mojica on 12-22-2024 Erythrocyte distribution width (RBC) [Ratio] 13.9 % 11.6-14.6 [facility] Erythrocyte distribution wid th standard deviationOrdered By: Albert Mojica on 12-22-2024 Erythrocyte distribution width (RBC) [Ratio] 47.4 fl High 35.1-43.9 [facility] Glomerular filtration rate ( GFR) estimation/1.73 sq m using serum, plasma, or whole bOrdered By: Albert Mojica on 12-22-2024 GFR/1.73 sq M.predicted among non-blacks MDRD (S/P/Bld) [Vol rate/Area] 68 mL/min/{1.73_m2} >60 [facility] Comment on above: mL/min/1.73m2 CKD-EP I Creatinine Equation (2020) Hematocrit Auto (Bld) [Volum e fraction]Ordered By: Albert Mojica on 12-22-2024 Hematocrit (Bld) [Volume fraction] 40.1 % 40-54 [facility] Hemoglobin measurementOrdere d By: Albert Mojica on 12-22-2024 Hemoglobin (Bld) [Mass/Vol] 13.1 g/dL 13.0-16. 5 [facility] Immature granulocytes/100 WB C Auto (Bld)Ordered By: Albert Mojica on 12-22-2024 Immature granulocytes/100 WBC (Bld) 0.600 % 0.0-0.9 [facility] Comment on above: IG% - Immature Granu locytes (promyelocytes, myelocytes and metamyelocytes) > 1% indicates that a LEFT SHIFT is Present. L503.7505on 12-22-2024 Natriuretic peptide B (Bld) [Mass/Vol] 954 pg/mL Normal <=1800 [facility] Comment on above: Result Comment: Hear t Failure Unlikely: < 300 pg/mL Heart Failure Likely < 50 Years: > 450 pg/mL 50-75 Years: > 900 pg/mL >75 Years: > 1800 pg/mL Performed By: #### L 300.3900 #### [facility] [place], [address] MCV (mean corpuscular volume ) determinationOrdered By: Albert Mojica on 12-22-2024 MCV (RBC) [Entitic vol] 91.3 fL 80-94 [facility] Mean corpuscular hemoglobin (MCH) determinationOrdered By: Albert Mojica on 12-22-2024 MCH (RBC) [Entitic mass] 29.8 pg 27.0-32.0 [facility] Mean corpuscular hemoglobin concentration (MCHC) determinationOrdered By: Albert Mojica on 12-22-2024 MCHC (RBC) [Mass/Vol] 32.7 g/dL 32-36 [facility] Mean platelet volume determi nationOrdered By: Albert Mojica on 12-22-2024 Platelet mean volume (Bld) [Entitic vol] 8.9 fL 6.2-12.0 [facility] Monocyte percentageOrdered B y: Albert Mojica on 12-22-2024 Monocytes/100 WBC (Bld) 11.4 % High 0-10 [facility] Natriuretic peptide.B prohor ronald N-Terminal [Mass/volume] in Serum or PlasmaOrdered By: Albert Mojica on 12-22-2024 Natriuretic peptide.B prohormone N-Terminal [Mass/Vol] 954 pg/mL <1800 [facility] Comment on above: Heart Failure Unlike ly: < 300 pg/mLHeart Failure Likely< 50 Years: > 450 pg/mL50-75 Years: > 900 pg/mL>75 Years: > 1800 pg/mL Neutrophil percentageOrdered By: Albert Mojica on 12-22-2024 Neutrophils/100 WBC (Bld) 68.2 % 47-70 [facility] Nucleated red blood cell per centageOrdered By: Albertjuan m Mojica on 12-22-2024 Nucleated RBC/100 WBC (Bld) [Ratio] 0 % 0-5 [facility] Platelet countOrdered By: Yadiel Mojica on 12-22-2024 Platelets (Bld) [#/Vol] 391 10*3/uL 150-450 [facility] Potassium measurement (mass/ volume)Ordered By: Albert Mojica on 12-22-2024 Potassium (Unsp spec) [Mass/Vol] 3.6 mmol/L 3.3-5.1 [facility] RBC Auto (Bld) [#/Vol]Ordere d By: Albert Mojica on 12-22-2024 RBC (Bld) [#/Vol] 4.39 10*6/uL Low [facility] Serum creatinine measurement (mass/volume)Ordered By: Albert Mojica on 12-22-2024 Creatinine [Mass/Vol] 1.06 mg/dL 0.70-1.20 [facility] Serum glucose measurement (m ass/volume)Ordered By: Albert Mojica on 12-22-2024 Glucose [Mass/Vol] 105 mg/dL High 70-99 [facility] Serum or plasma calcium ana laura urement (mass/volume)Ordered By: Albert Mojica on 12-22-2024 Calcium [Mass/Vol] 9.2 mg/dL 7.6-11.0 [facility] Serum or plasma urea nitroge n measurement (mass/volume)Ordered By: Albert Mojica on 12-22-2024 Urea nitrogen [Mass/Vol] 18 mg/dL 4-19 [facility] Sodium levelOrdered By: Larry Mojica on 12-22-2024 Sodium [Moles/Vol] 140 mmol/L 133-145 [facility] White blood cell (WBC) count Ordered By: Albert Mojica on 12-22-2024 WBC (Bld) [#/Vol] 11.2 10*3/uL High 4.4-11.0 [facility] International normalized rat io (INR) measurement by fingerstickOrdered By: Albert Mojica on 12-16-2024 INR Coag (BldC) [Relative time] 3.1 [facility] Comment on above: Critical Value > 4.0 Protime w/INR Fingerstickon 12-16-2024 INR Coag (PPP) [Relative time] 3.1 {INR} Normal [facility] Comment on above: Result Comment: Crit ical Value > 4.0 Performed By: #### L 501.6710, L500.4050, L3300.6400, L101.9900, L100.0100 #### [facility] Laboratory [address] [place], [place], [id number] Protime Co[place]en 31.7 SEC High 11.7-14.9 [facility] Comment on above: Performed By: #### L 501.6710, L500.4050, L3300.6400, L101.9900, L100.0100 #### [facility] [address] [place], [place], [address] Whole blood prothrombin time Ordered By: Albert Mojica on 12-16-2024 PT Coag (Bld) [Time] 31.7 s High 11.7-14.9 [facility] [id number]-[id number] ABon ANTISCLERODERM <0.2 Normal 0.0-0.9 [facility] Comment on above: Result Comment: AMENDED REPORT 12/12/24 1007 ANTISCLER previously reported as: Test not performed Performed By: #### L 501.6710, L500.4050, L3300.6400, L101.9900, L100.0100 #### [facility] [address] [place], [address] ANCAon 12-07-2024 Atypical pANCA <1:20 Normal Neg:<1:20 [facility] Comment on above: Result Comment: The atypical pANCA pattern has been observed in a significant percentage of patients with ulcerative colitis, primary sclerosing cholangitis and autoimmune hepatitis. Performed By: #### L 501.6710, L500.4050, L3300.6400, L101.9900, L100.0100 #### [facility] [address] [place], [address] Cytoplasmic Ab <1:20 Normal Neg:<1:20 [facility] Comment on above: Performed By: #### L 501.6710, L500.4050, L3300.6400, L101.9900, L100.0100 #### [facility] [address] [place], [address] Perinuclear Ab. <1:20 Normal Neg:<1:20 [facility] Comment on above: Result Comment: The presence of positive fluorescence exhibiting P-ANCA or C-ANCA patterns alone is not specific for the diagnosis of Antoinette's Granulomatosis (WG) or microscopic polyangiitis. Decisions about treatment should not be based solely on ANCA IFA results. The International ANCA Group Consensus recommends follow up testing of positive sera with both WY- 3 and MPO-ANCA enzyme immunoassays. As many as 5% serum samples are positive only by EIA. Ref. AM J Clin Pathol 1999;111:507-513. Performed By: #### L 501.6710, L500.4050, L3300.6400, L101.9900, L100.0100 #### [facility] [address] [place], [address] Angiotensin Convert Enzymeon 12-07-2024 ANGIOT-CONV.ENZ 42 U/L Normal 14-82 [facility] Comment on above: Performed By: #### L 501.6710, L500.4050, L3300.6400, L101.9900, L100.0100 #### [facility] [address] [place], [address] Anti-dsDNA Abon 12-07-2024 ANTI-DNA (DS)AB <1 Normal 0-9 [facility] Comment on above: Result Comment: Nega tive <5 Equivocal 5 - 9 Positive >9 AMENDED REPORT 12/07/24 1508 dsDNA AB previously reported as: Test not performed Performed By: #### L 501.6710, L500.4050, L3300.6400, L101.9900, L100.0100 #### [facility] [address] [place], [place], [id number] Antinuclear Antibody, IFAon 12-07-2024 KRISTIN, IFA Negative Normal . [facility] Comment on above: Result Comment: Nega tive <1:80 Borderline 1:80 Positive >1:80 ICAP nomenclature: AC-0 For more information about Hep-2 cell patterns use ANApatterns.org, the official website for the International Consensus on Antinuclear Antibody (KRISTIN) Patterns (ICAP). Speckled cytoplasmic fluorescence is present. The antibodies noted in this pattern may be associated with, but not restricted to, primary biliary cirrhosis (PBC), polymyositis and dermatomyositis (PM/DM), and/or systemic lupus erythematosus (SLE). Performed at: [employer] [id number] Manager Floor: Phil Champion PhD, Phone: [phone] Performed By: #### L 501.6710, L500.4050, L3300.6400, L101.9900, L100.0100 #### [facility] [address] [place], [place], [id number] CCP IgG Antibodieson 025 CCP IgG Ab. 7 units Normal 0-19 [facility] Comment on above: Result Comment: Nega tive <20 Weak positive 20 - 39 Moderate positive 40 - 59 Strong positive >59 Performed at: [facility] [id number] [place], [place] [id number] Manager Floor: Phil Champion PhD, Phone: [phone] Performed By: #### L 501.6710, L500.4050, L3300.6400, L101.9900, L100.0100 #### [facility] [address] [facility], [address] MAGISTRATE Abon 12-07-[address] MAGISTRATE Ab <0.2 Normal 0.0-0.9 [facility] Comment on above: Result Comment: AMENDED REPORT 12/07/241507 [address] MAGISTRATE Ab previously reported as: Test not performed Performed By: #### L 501.6710, L500.4050, L3300.6400, L101.9900, L100.0100 #### [facility] [address] [place], [address] Sjogren's Antibodies A/Bon 0 12-07-2024 ANTI-SS-A < 0.2 Normal 0.0-0.9 [facility] Comment on above: Result Comment: AMENDED REPORT 12/07/241507 Anti-SS-A previously reported as: Test not performed Performed By: #### L 501.6710, L500.4050, L3300.6400, L101.9900, L100.0100 #### [facility] [address] [place], [address] ANTI-SS-B < 0.2 Normal 0.0-0.9 [facility] Comment on above: Result Comment: AMENDED REPORT 12/07/241507 Anti-SS-B previously reported as: Test not performed Performed By: #### L 501.6710, L500.4050, L3300.6400, L101.9900, L100.0100 #### [facility] [address] [place], [address] Absolute lymphocyte countOrd ered By: George Hood on 12-06-2024 Lymphocytes Auto (Unsp spec) [#/Vol] 1.07 10*3/uL 0.83-4.51 [facility] Absolute neutrophil countOrd ered By: George Hood on 12-06-2024 Neutrophils (Bld) [#/Vol] 7.4 10*3/uL 2.0-7.7 [facility] Antinuclear antibody (KRISTIN) a ssayOrdered By: George Hood on 12-06-2024 Anti-Nuclear Antibody Screen Negative . [facility] Comment on above: Negative <1:80 Borde rline 1:80 Positive >1:80ICAP nomenclature: AC-0For more information about Hep-2 cell patterns useANApatterns.org, the official website for theInternational Consensus on Antinuclear Antibody (KRISTIN)Patterns (ICAP).Speckled cytoplasmic fluorescence is present. Theantibodies noted in this pattern may be associated with,but not restricted to, primary biliary cirrhosis (PBC),polymyositis and dermatomyositis (PM/DM), and/or systemiclupus erythematosus (SLE).Performed at: [employer] [id number] Director: Phil Champion PhD, Phone: [phone] Atypical perinuclear antineu trophil cytoplasmic antibodies measurementOrdered By: George Hood on 12-06-2024 Atypical p-ANCA <1:20 titer Neg:<1:20 [facility] Comment on above: The atypical pANCA p attern has been observed in asignificant percentage of patients with ulcerative colitis,primary sclerosing cholangitis and autoimmune hepatitis. Automated lymphocyte count a s percentage of total leukocytesOrdered By: George Hood on 12-06-2024 Lymphocytes/100 WBC Auto (Unsp spec) 11.1 % Low 19-41 [facility] Basophil percentageOrdered B y: George Hood on 12-06-2024 Basophils/100 WBC (Bld) 0.8 % 0-1 [facility] CBC W/Diff, Automatedon 11-22 Absolute Lymph 1.07 X10 3/uL Normal 0.83-4.51 [facility] Comment on above: Performed By: #### L 501.6710, L500.4050, L3300.6400, L101.9900, L100.0100 #### [facility] Laboratory [address] [place], [address] Absolute Neut 7.4 X10 3/uL Normal 2.0-7.7 [facility] Comment on above: Performed By: #### L 501.6710, L500.4050, L3300.6400, L101.9900, L100.0100 #### [facility] [address] [place], [address] Basophils/100 WBC (Bld) 0.8 % Normal 0-1 [facility] Comment on above: Performed By: #### L 501.6710, L500.4050, L3300.6400, L101.9900, L100.0100 #### [facility] [address] [place], [address] Eosinophils/100 WBC (Bld) 2.0 % Normal 0-5 [facility] Comment on above: Performed By: #### L 501.6710, L500.4050, L3300.6400, L101.9900, L100.0100 #### [facility] [address] [place], [address] Erythrocyte distribution width (RBC) [Ratio] 14.8 % High 11.6-14.6 [facility] Comment on above: Performed By: #### L 501.6710, L500.4050, L3300.6400, L101.9900, L100.0100 #### [facility] [address] [place], [address] Hematocrit (Bld) [Volume fraction] 39.5 % Low 40-54 [facility] Comment on above: Performed By: #### L 501.6710, L500.4050, L3300.6400, L101.9900, L100.0100 #### [facility] [address] [place], [address] Hemoglobin (Bld) [Mass/Vol] 13.0 g/dL Normal 13.0-16. 5 [facility] Comment on above: Performed By: #### L 501.6710, L500.4050, L3300.6400, L101.9900, L100.0100 #### [facility] [address] [place], [address] IG% 0.500 Normal 0.0-0.9 [facility] Comment on above: Result Comment: IG% - Immature Granulocytes (promyelocytes, myelocytes and metamyelocytes) > 1% indicates that a LEFT SHIFT is Present. Performed By: #### L 501.6710, L500.4050, L3300.6400, L101.9900, L100.0100 #### [facility] [address] [place], [address] Lymphocytes/100 WBC (Bld) 11.1 % Low 19-41 [facility] Comment on above: Performed By: #### L 501.6710, L500.4050, L3300.6400, L101.9900, L100.0100 #### [facility] [address] [place], [address] MCH (RBC) [Entitic mass] 31.5 pg Normal 27.0-32.0 [facility] Comment on above: Performed By: #### L 501.6710, L500.4050, L3300.6400, L101.9900, L100.0100 #### [facility] [address] [place], [address] MCHC (RBC) [Mass/Vol] 32.9 g/dL Normal 32-36 [facility] Comment on above: Performed By: #### L 501.6710, L500.4050, L3300.6400, L101.9900, L100.0100 #### [facility] [address] [place], [address] MCV (RBC) [Entitic vol] 95.6 fL High 80-94 [facility] Comment on above: Performed By: #### L 501.6710, L500.4050, L3300.6400, L101.9900, L100.0100 #### [facility] [address] [place], [address] Monocytes/100 WBC (Bld) 9.2 % Normal 0-10 [facility] Comment on above: Performed By: #### L 501.6710, L500.4050, L3300.6400, L101.9900, L100.0100 #### [facility] [address] [place], [address] Neutrophils/100 WBC (Bld) 76.4 % High 47-70 [facility] Comment on above: Performed By: #### L 501.6710, L500.4050, L3300.6400, L101.9900, L100.0100 #### [facility] [address] [place], [address] Nucleated RBC (Bld) [#/Vol] 0 10*3/uL Normal 0-5 [facility] Comment on above: Performed By: #### L 501.6710, L500.4050, L3300.6400, L101.9900, L100.0100 #### [facility] [address] [place], [address] Platelet mean volume (Bld) [Entitic vol] 9.8 fL Normal 6.2-12.0 [facility] Comment on above: Performed By: #### L 501.6710, L500.4050, L3300.6400, L101.9900, L100.0100 #### [facility] [address] [place], [address] Platelets (Bld) [#/Vol] 223 10*3/uL Normal 150-450 [facility] Comment on above: Performed By: #### L 501.6710, L500.4050, L3300.6400, L101.9900, L100.0100 #### [facility] [address] [place], [address] RBC (Bld) [#/Vol] 4.13 10*6/uL Low 4.6-6.2 [facility] Comment on above: Performed By: #### L 501.6710, L500.4050, L3300.6400, L101.9900, L100.0100 #### [facility] [address] [place], [address] RDW SD 50.8 fl High 35.1-43.9 [facility] Comment on above: Performed By: #### L 501.6710, L500.4050, L3300.6400, L101.9900, L100.0100 #### [facility] [address] [place], [address] WBC (Bld) [#/Vol] 9.7 10*3/uL Normal 4.4-11.0 [facility] Comment on above: Performed By: #### L 501.6710, L500.4050, L3300.6400, L101.9900, L100.0100 #### [facility] [address] [place], [address] CRPon 12-06-2024 C-REACTIVE PROT 9.87 mg/L High 0.0-3.0 [facility] Comment on above: Order Comment: RED O R SER RT Performed By: #### L 501.6710, L500.4050, L3300.6400, L101.9900, L100.0100 #### [facility] [address] [place], [address] CRP [Mass/Vol]Ordered By: Brionna Hood on 12-06-2024 C-Reactive Protein Extended Range 9.87 mg/L High 0.0-3.0 [facility] Cyclic citrullinated peptide IgG QnOrdered By: George Hood on 12-06-2024 Cyclic Citrullinated Peptide IgG Ab 7 units 0-19 [facility] Comment on above: Negative <20 Weak po sitive 20 - 39 Moderate positive 40 - 59 Strong positive >59Performed at: [facility] [address] [id number] Director: Phil Champion PhD, Phone: [phone] DNA double strand Ab Qn (S)O rdered By: George Hood on 12-06-2024 Anti-Double Strand DNA Antibody <1 IU/mL 0-9 [facility] Comment on above: Negative <5 Equivoca l 5 - 9 Positive >9Previous reported result: TNP IU/mLEdited by: TYLER on 12/07/24:1508 AMENDED REPORT 12/07/24 1508 dsDNA AB previously reported as: Test not performed Eosinophil percentageOrdered By: George Hood on 12-06-2024 Eosinophils/100 WBC (Bld) 2.0 % 0-5 [facility] Erythrocyte Sed Rateon 12-06 SED RATE 10 mm/hr Normal 0-20 [facility] Comment on above: Performed By: #### L 501.6710, L500.4050, L3300.6400, L101.9900, L100.0100 #### [facility] [address] [facility] [place], [place], [id number] Erythrocyte distribution wid th (RBC) [Ratio]Ordered By: George Hood on 12-06-2024 Erythrocyte distribution width (RBC) [Entitic vol] 50.8 fL High 35.1-43.9 [facility] Erythrocyte distribution wid th ratioOrdered By: George Hood on 12-06-2024 Erythrocyte distribution width (RBC) [Ratio] 14.8 % High 11.6-14.6 [facility] Erythrocyte distribution wid th standard deviationOrdered By: George Hood on 12-06-2024 Erythrocyte distribution width (RBC) [Ratio] 50.8 fl High 35.1-43.9 [facility] Erythrocyte sedimentation ra teOrdered By: George Hood on 12-06-2024 ESR (Bld) [Velocity] 10 mm/h 0-20 [facility] Hematocrit Auto (Bld) [Volum e fraction]Ordered By: George Hood on 12-06-2024 Hematocrit (Bld) [Volume fraction] 39.5 % Low 40-54 [facility] Hemoglobin measurementOrdere d By: George Hood on 12-06-2024 Hemoglobin (Bld) [Mass/Vol] 13.0 g/dL 13.0-16. 5 [facility] Immature granulocytes/100 WB C Auto (Bld)Ordered By: George Hood on 12-06-2024 Immature granulocytes/100 WBC (Bld) 0.500 % 0.0-0.9 [facility] Comment on above: IG% - Immature Granu locytes (promyelocytes, myelocytes and metamyelocytes) > 1% indicates that a LEFT SHIFT is Present. L509.4006on 12-06-2024 Rubella IgG REAC Normal Nonreactive [facility] Comment on above: Order Comment: RED O R SER RT Result Comment: Anti body Result: Interpretation Non-Reactive: Non-Immune Reactive: Immune The following results were obtained with the [employer] Rubella IgG assay. Results from assays of other manufacturers cannot be used interchangeably. Performed By: #### L 501.6710, L500.4050, L3300.6400, L101.9900, L100.0100 #### [facility] [address] [facility] [place], [place], [address] Lymphocytes Auto (Unsp spec) [#/Vol]Ordered By: George Hood on 12-06-2024 Lymphocytes (Bld) [#/Vol] 1.07 10*3/uL 0.83-4.5 1 [facility] Lymphocytes/100 WBC Auto (Un sp spec)Ordered By: George Hood on 12-06-2024 Lymphocytes/100 WBC (Bld) 11.1 % Low 19-41 [facility] MCV (mean corpuscular volume ) determinationOrdered By: George Hood on 12-06-2024 MCV (RBC) [Entitic vol] 95.6 fL High 80-94 [facility] Mean corpuscular hemoglobin (MCH) determinationOrdered By: George Hood on 12-06-2024 MCH (RBC) [Entitic mass] 31.5 pg 27.0-32.0 [facility] Mean corpuscular hemoglobin concentration (MCHC) determinationOrdered By: George Hood on 12-06-2024 MCHC (RBC) [Mass/Vol] 32.9 g/dL 32-36 [facility] Mean platelet volume determi nationOrdered By: George Hood on 12-06-2024 Platelet mean volume (Bld) [Entitic vol] 9.8 fL 6.2-12.0 [facility] Monocyte percentageOrdered B y: George Hood on 12-06-2024 Monocytes/100 WBC (Bld) 9.2 % 0-10 [facility] Neutrophil cytoplasmic Ab.cl assic Qn (S)Ordered By: George Hood on 12-06-2024 Cytoplasmic ANCA (c-ANCA) Antibody <1:20 titer Neg:<1:20 [facility] Neutrophil cytoplasmic Ab.pe rinuclear IF (S) [Titer]Ordered By: George Hood on 12-06-2024 Perinuclear ANCA (p-ANCA) Antibody <1:20 titer Neg:<1:20 [facility] Comment on above: The presence of posi tive fluorescence exhibiting P-ANCA orC-ANCA patterns alone is not specific for the diagnosis ofWegener's Granulomatosis (WG) or microscopic polyangiitis.Decisions about treatment should not be based solely onANCA IFA results. The International ANCA Group Consensusrecommends follow up testing of positive sera with both WY-3 and MPO-ANCA enzyme immunoassays. As many as 5% serumsamples are positive only by EIA. Ref. AM J Clin [id number];111:507-513. Neutrophil percentageOrdered By: George Hood on 12-06-2024 Neutrophils/100 WBC (Bld) 76.4 % High 47-70 [facility] Nucleated red blood cell per centageOrdered By: George Hood on 12-06-2024 Nucleated RBC/100 WBC (Bld) [Ratio] 0 % 0-5 [facility] Platelet countOrdered By: Brionna Hood on 12-06-2024 Platelets (Bld) [#/Vol] 223 10*3/uL 150-450 [facility] RBC Auto (Bld) [#/Vol]Ordere d By: George Hood on 12-06-2024 RBC (Bld) [#/Vol] 4.13 10*6/uL Low 4.6-6.[address] [facility] [address] MAGISTRATE abOrdered By: George barrett on 12-06-[address] MAGISTRATE Antibody <0.2 AI 0.0-0.9 [facility] Comment on above: Previous reported re sult: TNP AIEdited by: TYLER on 12/07/24:1508 AMENDED REPORT 12/07/[address] MAGISTRATE Ab previously reported as: Test not performed Rubella immune status determ ination by IgG antibody assayOrdered By: George Hood on 12-06-2024 Rubella IgG Antibody REAC Nonreactive [facility] Comment on above: Antibody Result: Int erpretationNon-Reactive: Non-ImmuneReactive: ImmuneThe following results were obtained with the [employer] Rubella IgG assay. Results from assays of other manufacturers cannot be used interchangeably. SCL-70 extractable nuclear A b Qn (S)Ordered By: George Hood on 12-06-2024 Scl-70 (Scleroderma) Antibody TNP [facility] Comment on above: Test not performed SS-A IgG antibody assayOrder ed By: George Hood on 12-06-2024 SS-A/Ro IgG Antibody < 0.2 AI 0.0-0.9 [facility] Comment on above: Previous reported re sult: TNP AIEdited by: TYLER on 12/07/24:1508 AMENDED REPORT 12/07/24 1508 Anti-SS-A previously reported as: Test not performed SS-B IgG antibody assayOrder ed By: George Hood on 12-06-2024 SS-B/La IgG Antibody < 0.2 AI 0.0-0.9 [facility] Comment on above: Previous reported re sult: TNP AIEdited by: TYLER on 12/07/24:1508 AMENDED REPORT 12/07/24 1508 Anti-SS-B previously reported as: Test not performed Serum DNA double strand anti body assay (units/volume)Ordered By: George Hood on 12-06-2024 DNA double strand Ab Qn (S) [IU]/mL 0-9 [facility] Comment on above: Negative <5 Equivoca l 5 - 9 Positive >9Previous reported result: TNP IU/mLEdited by: TYLER on 12/07/24:1508 AMENDED REPORT 12/07/24 1508 dsDNA AB previously reported as: Test not performed Serum Scl-70 antibody assay (units/volume)Ordered By: George Hood on 12-06-2024 SCL-70 extractable nuclear Ab Qn (S) <0.2 AI 0.0-0.9 [facility] Comment on above: Previous reported re sult: TNP AIEdited by: TYLER on 12/12/24:1007 AMENDED REPORT 12/12/24 1007 ANTISCLER previously reported as: Test not performed Serum classic neutrophil cyt oplasmic antibody assay (units/volume)Ordered By: George Hood on 12-06-2024 Neutrophil cytoplasmic Ab.classic Qn (S) <1:20 titer Neg:<1:20 [facility] Serum or plasma C reactive p rotein measurement (mass/volume)Ordered By: George Hood on 12-06-2024 CRP [Mass/Vol] 9.87 mg/L High 0.0-3.0 [facility] Serum or plasma actin IgG an tibody assay (units/volume)Ordered By: George Hood on 12-06-2024 Actin IgG Qn See comment [facility] [facility] Comment on above: TEST RESULTS LIMITSA ctin (Smooth Muscle)Antibody 11 Units 0-19 Negative 0 - 19 Weak positive 20 - 30 Moderate to strong positive >30 Actin Antibodies are found in 52-85% of patients with autoimmune hepatitis or chronic active hepatitis and in 22% TESTING PERFORMED AT [facility]. ORIGINAL REPORT ON FILE IN LAB CONTAINS ADDITIONAL TEST SITE INFORMATION. Serum or plasma angiotensin converting enzyme measurement (enzymatic activity/volume)Ordered By: George Thakkarnena on 12-06-2024 Angiotensin converting enzyme [Catalytic activity/Vol] 42 U/L 14-82 [facility] Serum or plasma cyclic citru llinated peptide IgG antibody assay (units/volume)Ordered By: George Thakkarnena on 12-06-2024 Cyclic citrullinated peptide IgG Qn 7 units 0-19 [facility] Comment on above: Negative <20 Weak po sitive 20 - 39 Moderate positive 40 - 59 Strong positive >59Performed at: [facility] LabJonathan [place]ille [id number] Director: Phil Champion PhD, Phone: [phone] Serum perinuclear neutrophil cytoplasmic antibody titer by immunofluorescenceOrdered By: George Hood on 12-06-2024 Neutrophil cytoplasmic Ab.perinuclear IF (S) [Titer] <1:20 titer Neg:<1:20 [facility] Comment on above: The presence of posi tive fluorescence exhibiting P-ANCA orC-ANCA patterns alone is not specific for the diagnosis ofWegener's Granulomatosis (WG) or microscopic polyangiitis.Decisions about treatment should not be based solely onANCA IFA results. The International ANCA Group Consensusrecommends follow up testing of positive sera with both WY-3 and MPO-ANCA enzyme immunoassays. As many as 5% serumsamples are positive only by EIA. Ref. AM J Clin Ouclbb5486;111:507-513. White blood cell (WBC) count Ordered By: George Hood on 12-06-2024 WBC (Bld) [#/Vol] 9.7 10*3/uL 4.4-11.0 [facility] Chest without Contraston Chest without Contrast [facility] Imaging Services [address] [place] [address] Chest without Contrast MR#: [id number] Acct: [id number] Name: GEORGE MCCLAIN Rep #: [id number] : 1935 M 89 From: Jen Vargas MD PCP: Dr. Bashir Cortez MD Status: REG CLI Study: Chest without Contrast Date of Exam: 11/29/24 Exam# [id number] Ordering Dr: George Hood MD PROCEDURE: CHEST WITHOUT CONTRAST 11/29/2024 REASON FOR EXAM: PULMONARY HYPERTENSION, UNSPECIFIED TECHNIQUE: Chest CT without contrast. Coronal and Sagittal reconstruction series were provided. One or more dose reduction techniques were used (e.g., Automated exposure control, adjustment of the mA and/or kV according to patient size, use of iterative reconstruction technique RADIATION DOSE SUMMARY: CTDlvol: 369.96 mGy DLP: 369.96 mGycm COMPARISON: None available FINDINGS: Hardware: None Lymph nodes: Several minimally prominent mediastinal lymph nodes Heart and Vasculature: The heart is moderately enlarged. The great vessels are normal in size and caliber. Calcified atherosclerotic plaque within the thoracic aorta. Coronary Artery Calcifications: Coronary artery calcification. Lungs and Airways: Central airways are patent. Minimal upper lobe predominant centrilobular emphysematous changes within bilateral lungs. There are subpleural reticular opacities within the bilateral lungs, likely early fibrosis. Mild lower lobe predominant bronchiectasis. Pleura: No pleural effusion or pneumothorax. Upper Abdomen: Unremarkable Bones: No aggressive osseous lesions. No acute fractures. Multilevel degenerative proliferative changes throughout the thoracic spine. Dwwm-gb-jnzxjiek kyphosis. CT/Chest without Contrast IMPRESSION: 1. Coronary artery calcification (CAC) is present 2. There are subpleural reticular opacities within bilateral lungs, likely early fibrosis. 3. Mild lower lobe predominant bronchiectasis. 4. Minimal upper lobe predominant centrilobular emphysematous changes within bilateral lungs. Reading Location: [facility] CC: Dr. Bashir Cortez MD; Dr. George Hood MD Stenographic Court Reporter: Signed Normal [facility] International normalized rat io (INR) calculationOrdered By: Albert Mojica on 2024 INR Coag (Bld) [Relative time] 3.0 {INR} [facility] Prothrombin Time w/INRon INR Coag (PPP) [Relative time] 3.0 {INR} Normal [facility] Comment on above: Order Comment: PT WA NTED DRAWN DUE TO PREVIOUS HIGH RESULT Performed By: #### L 501.6710, L500.4050, L3300.6400, L101.9900, L100.0100 #### [facility] Laboratory [address] [place], [address] PT Coag (PPP) [Time] 32.1 s High 11.7-14.9 [facility] Comment on above: Order Comment: PT WA NTED DRAWN DUE TO PREVIOUS HIGH RESULT Performed By: #### L 501.6710, L500.4050, L3300.6400, L101.9900, L100.0100 #### [facility] Laboratory [address] [place], [address] Prothrombin timeOrdered By: Albert Mojica on 2024 PT Coag (PPP) [Time] 32.1 s High 11.7-14.9 [facility] International normalized rat io (INR) calculationOrdered By: Albert Mojica on 11-21-2024 INR Coag (Bld) [Relative time] 4.7 {INR} High [facility] Comment on above: CRITICAL VALUE MAIN D TO [facility] ([facility])11/21/24 1118 Jadon Nascimento.RESULTS READ BACK BY SAME. PT Coag (Bld) [Time]Ordered By: Albert Mojica on 11-21-2024 Bedside Prothrombin Time 47.6 SEC High 11.7-14.9 [facility] Prothrombin Time w/INRon INR Coag (PPP) [Relative time] 4.7 {INR} Invalid Interpretation Code [facility] Comment on above: Result Comment: CRIT ICAL VALUE CALLED TO [facility] ([facility]) 11/21/24 111Nereyda Nascimento. RESULTS READ BACK BY SAME. Performed By: #### L 501.6710, L500.4050, L3300.6400, L101.9900, L100.0100 #### [facility] Laboratory [address] [place], [address] PT Coag (PPP) [Time] 45.2 s High 11.7-14.9 [facility] Comment on above: Performed By: #### L 501.6710, L500.4050, L3300.6400, L101.9900, L100.0100 #### [facility] Laboratory [address] [place], [address] Prothrombin timeOrdered By: [facility] on 11-21-2024 PT Coag (PPP) [Time] 45.2 s High 11.7-14.9 [facility] Protime w/INR Fingerstickon 11-21-2024 INR Coag (PPP) [Relative time] 4.9 {INR} Invalid Interpretation Code [facility] Comment on above: Result Comment: Crit ical Value > 4.0 Performed By: #### L 9200.0000 ####[facility] [address] [place], [address] Protime Coagsen 47.6 SEC High 11.7-14.9 [facility] Comment on above: Performed By: #### L 9200.0000 ####[facility] [address] [place], [address] Whole blood prothrombin time [facility]24 PT Coag (Bld) [Time] 47.6 s High 11.7-14.9 [facility] Protime w/INR Fingerstickon 11-04-2024 INR Coag (PPP) [Relative time] 2.2 {INR} Normal [facility] Comment on above: Result Comment: Crit ical Value > 4.0 Performed By: #### L 501.6710, L500.4050, L3300.6400, L101.9900, L100.0100 #### [facility] Laboratory [address] [place], [address] Protime Coagsen 23.9 SEC High 11.7-14.9 [facility] Comment on above: Performed By: #### L 501.6710, L500.4050, L3300.6400, L101.9900, L100.0100 #### [facility] Laboratory [address] [place], [address] L503.7505on 10-31-2024 Natriuretic peptide B (Bld) [Mass/Vol] 1436 pg/mL Normal <=1800 [facility] Comment on above: Result Comment: Hear t Failure Unlikely: < 300 pg/mL Heart Failure Likely < 50 Years: > 450 pg/mL 50-75 Years: > 900 pg/mL >75 Years: > 1800 pg/mL Performed By: #### L 501.6710, L500.4050, L3300.6400, L101.9900, L100.0100 #### [facility] Laboratory [address] [place], [address] Laboratory - Chemistry and C hemistry - challengeOrdered By: Albert Mojica on 10-31-2024 Natriuretic peptide B (Bld) [Mass/Vol] 1436 pg/mL <1800 [facility] Comment on above: Heart Failure Unlike ly: < 300 pg/mLHeart Failure Likely< 50 Years: > 450 pg/mL50-75 Years: > 900 pg/mL>75 Years: > 1800 pg/mL Prothrombin Time w/INRon INR Coag (PPP) [Relative time] 1.6 {INR} Normal [facility] Comment on above: Performed By: #### L 300.3900 #### [facility] Laboratory [address] [place], [address] PT Coag (PPP) [Time] 18.9 s High 11.7-14.9 [facility] Comment on above: Performed By: #### L 300.3900 #### [facility] Laboratory [address] [place], [address] INR Normal [facility] Comment on above: Result Comment: WRON G ACCOUNT Performed By: #### L 501.6710, L500.4050, L3300.6400, L101.9900, L100.0100 #### [facility] Laboratory [address] [place], [place], [id number] PROTIME Normal 11.7-14.9 [facility] Comment on above: Result Comment: MAURA Chandra ACCOUNT Performed By: #### L 501.6710, L500.4050, L3300.6400, L101.9900, L100.0100 #### [facility] Laboratory [address] [place], [place], [address] PT D/C Summary (1)on 025 PT D/C Summary (1) [facility] Physical Therapy [facility] [place] [address] / REHABILITATION SERVICES DISCHARGE SUMMARY MR#: [id number] Acct: [id number] Name: GEORGE MCCLAIN Rep #: [id number] : 1935 88 From: Ulysses Wright DPT Referring Dr.: Dr. Bashir Cortez MD Status: REG RCR Insurance: [employer] MED[employer] PPO SELF PAY INSURANCE Discharge Summary D/C summary: It has been my pleasure to treat GEORGE MCLCAIN referred by Dr. Bashir Cortez MD, with the diagnosis of balance training, poor eye sight for a total of 14 visit(s). Discharge Date: 10/03/24 Please see the following information for a summary of their discharge status. Subjective Subjective: Pt. reports being 65% better overall. He reports he is walking better, but is still working on wt. shifting for golf. he reports being I with balance HEP and has joined gym to continue to work on strengthening of BLEs. Overall Improvement % Improvement: 65 Objective Objective/Function: R ankle EVR 50.9#, L ankle EVR 49.4#. L: hip abd 34.5#. R hip abd 46.9# I had saleem swinging a golf club with good wt. shift without LOB. I talked to him about staying fwrd to use his plantar flexors to help stabilize. If he gets too far retro he tends to have to step to regain balance. He did very well with testing. No major issues noted with TUG or FGA. His stability with his golf swings are much improved. Pt. to work on exercises and gym exercises on his own at this point in time. Goals Goal 1:: LTG: Pt. to be I with HEP for LE strength and balance. Goal Progress: Goal Met Goal 2:: LTG: Pt. to have increased glute medius and ankle eversion strength to 5/5. Goal Progress: Goal Met Goal 3:: LTG: to have improved FGA to 28/30 indicating improved balance. Goal Progress: Goal Met Goal 4:: STG: pt. to have balance performance test completed. Goal Progress: Goal Met Goal 5:: LTG: Pt. to have improved TUG to less than 10sec indicating good stability. Goal 6:: LTG: Pt. to complete all simulated golf swings without LOB. Goal Progress: Goal Met Plan Plan: Re-assess with Ulysses Wright PT, DPT. D/C Information Discharge Comments: Pt. is overall doing better. He mooer improved balance and has met all goals. He plans to take balance activities and gym exercises to continue working on. Pt. is I with this. He will be DC from PT as he has met all goals at this point in time. d/c sentence: If there are questions or concerns regarding this patient's physical therapy, please feel free to call me at [phone]. Thank you for the referral of this patient. Sincerely, Ulysses Wright, DPT Balance/Gait/Function al tests Balance/Special Test Scores Functional Gait Assessment Score: 28 % Disability: 6.6700 Lower Extremity Functional Score: 61 TUG Test Time Seconds: 11.5 Tug Test: <20 sec.=mostly independent 30 Second Chair Rise Test Seconds: 19 6 Minute Walk Test: 816 feet no AD Improvement % Improvement: 65 10/03/24 1425 CC: Dr. Bashir Cortez MD CLS Signed Normal [facility] PT Communicationon 4 PT Communication [facility] Physical Therapy [facility] [address] [place], [place] [address] Fax REHABILITATION SERVICES PROGRESS NOTE MR#: [id number] Acct: [id number] Name: GEORGE MCCLAIN Rep #: [id number] : 1935 88 From: Mike Rivero DPT, OCS, CSCS Referring Dr.: Dr. Bashir Cortez MD Status:REG RCR Insurance: [employer] MCR ADV LIFE1 SELF PAY INSURANCE PT Communication Note 08/09/[address] Bashir Cortez MD , Thank you for the referral of Saleem to [facility] for balance assessment. I have enclosed a copy of the results for your review. In summation, he scored poorly on the posterior and right weight shifting on the Limits of Stability Test. his center of gravity is malaligned in the forward direction. He scored lowly on the Modified CTSIB in the eyes closed portions including 4 LOB in the eyes closed and foam condition. With these results in mind, we will see him 2x/week for 6 weeks for balance related treatments and activities referred to in his initial evaluation. Thank you for this referral. Sincerely, Mike Rivero DPT, OCS, CSCS Contact Information 08/09/24 5168 S> Date Mike Rivero DPT, OCS, CSCS Cosigner Signature (if applicable): Date CC: Dr. Bashir Cortez MD Signed For Medicare only, by signing this I certify the plan of care. Physicians Signature Date Normal [facility] INR Coag (BldC) [Relative ti me]Ordered By: Albert Mojica on 08-08-2024 INR Coag (Bld) [Relative time] 2.1 {INR} [facility] Comment on above: Critical Value > 4.0 PT Coag (Bld) [Time]Ordered By: Albert Mojica on 08-08-2024 Bedside Prothrombin Time 23.2 SEC High 11.7-14.9 [facility] Protime w/INR Fingerstickon 08-08-2024 INR Coag (PPP) [Relative time] 2.1 {INR} Normal [facility] Comment on above: Result Comment: Crit ical Value > 4.0 Performed By: #### L 501.6710, L500.4050, L3300.6400, L101.9900, L100.0100 #### [facility] Laboratory [address] [place], [place], [address] Protime Coagsen 23.2 SEC High 11.7-14.9 [facility] Comment on above: Performed By: #### L 501.6710, L500.4050, L3300.6400, L101.9900, L100.0100 #### [facility] Laboratory [address] [place], [place], [address] Inital Evaluation (1) - PTon 08-01-2024 Inital Evaluation (1) - PT [facility] Physical Therapy [address] [place] [address] / REHABILITATION SERVICES INITIAL EVALUATION MR#: [id number] Acct: [id number] Name: GEORGE MCCLAIN Rep #: [id number] : 1935 88 From: Ulysses SULLIVANT Referring Dr.: Dr. Bashir Cortez MD Status: REG RCR [facility] LIFE[facility] SELF PAY INSURANCE Patient's Visit Information Visit Information Visit Information: GEORGE MCCLAIN is a 88 year old M referred to Physical Therapy by Dr. Bashir Cortez MD with a diagnosis of balance training, poor eye sight. Date of Evaluation: 08/01/24 Physical Therapist: Ulysses Wright DPT Visit Plan Frequency: 2x /Week Duration: 6 Weeks Plan: 1) balance performance test completed, add in results to exercises 2) glute med strength, ankle EVR strength 3) Dynamic balance with R to L wt. shifting to simulate golf swing. Add in rotation as well. Subjective Subjective: Pt. is here today for his initial evaluation with diagnosis of balance training, poor eye sight. Pt. was here earlier this year, but became sick and had to stop coming in. He is finally feeling better and ready to start back with PT. Pt. reports no falls recently, but reports feeling unsteady, especially with his recreational activities. These include golf and some tennis. Pt. 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 Pt. does still drive, but not at night. Pt. does go to [employer] and use their gym for strengthening. Pt. is hopeful to increase his stability in order to complete all ADls and his recreational activities without fear of falling. Objective Objective: POSTURE: Pt. has slight flexed posture in stance. Slight wide ABDELRAHMAN. PALPATION: No issues with palpation of BLEs. NEURO: Pt. has normal DTR of BLEs. Pt. is able to rise on heels and toes without issues. Pt. does have some slight sensation loss in distal LEs to both light and firm touch. ROM: Pt. has decent ROM throughout BLEs. Slight calf tightness noted. MMT: Pt. has 5/5 strength throughout BLEs, except 4/5 B hip abd and B ankle EVR. Core strength: fair-. GAIT: Pt. ambulates without AD. Pt. is a bit impulsive with his movements. Pt. has good foot clearance, no major LOB noted with gait. Simulated golf swing: multiple off balance with posterior loss. Pt. was able to self correct, but needed stepping strategies to correct. I would like to have him do a balance performance test to fully define where his instability origin. Balance/Special Test Scores Functional Gait Assessment Score: 24 % Disability: 20.0000 Lower Extremity Functional Score: 40 TUG Test Time Seconds: 11.1 30 Second Chair Rise Test Seconds: 19 6 Minute Walk Test: 816 feet no AD Goals Goal 1:: LTG: Pt. to be I with HEP for LE strength and balance. Goal Time Frame: 4-6 Weeks Goal 2:: LTG: Pt. to have increased glute medius and ankle eversion strength to 5/5. Goal Time Frame: 4-6 Weeks Goal 3:: LTG: to have improved FGA to 28/30 indicating improved balance. Goal Time Frame: 4-6 Weeks Goal 4:: STG: pt. to have balance performance test completed. Goal Time Frame: 2-4 Weeks Goal 5:: LTG: Pt. to have improved TUG to less than 10sec indicating good stability. Goal Time Frame: 4-6 Weeks Goal 6:: LTG: Pt. to complete all simulated golf swings without LOB. Goal Time Frame: 6-8 Weeks Rehabilitation Potential Physical Therapy Diagnosis: Pt. has signs and symptoms consistent with imbalance. He has some marked lateral weakness, but also some instability with directional changes and with lateral wt. shifting. He would benefit from PT to address his lateral strength issues and his difficulty with dynamic wt. shifting. Rehabilitation Potential: Excellent Anticipated Interventions Patient/Client Instruction: Educate patient on: Condition, Plan of Care, Risk Factors and Benefits of Fitness Program For the Purpose of:: To facilitate caregiver knowledge, To improve self management and To prevent re-injury Therapeutic Exercise to Include: Strength training, Balance training, Coordination, Body mechanics, Postural training, Flexibilty training and via [employer] Balance Mas For the Purpose of:: To improve nutrient delivery to tissue, To increase oxygenation perfusion, To improve muscle performance and motor function, To improve ability to perform ADL's, To improve ba mae and To improve safety with gait Text: Thank you for the opportunity to evaluate your patient. For Medicare and Medicare HMO plans, please review the plan of care and approve it. It will need to be FAXED BACK to us at [phone] for Medicare purposes. For Medicare only, by signing this I certify the plan of care. Please let me know if there are questions or concerns regarding this plan of care. Physician Signature: (more content not included)... Normal [facility] Cardiology Visit Reporton Cardiology Visit Report [facility] [address] [place], [place] [address]. [address] [place] [address] OFFICE VISIT Date of Service: 06/27/24 MR#: [id number] Acct: [id number] Name: GEORGE MCCLAIN Rep #: [id number] : 1935 Provider: STEW velazquez Age/Sex: 88/M [place] [facility] [place] Signed HPI HPI History of Present Illness Details: George Mcclain is an 88-year-old gentleman who presents to the office today for a cardiovascular visit. 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 He is also status post coronary artery bypass surgery with a saphenous vein graft to the diagonal branch and saphenous vein graft to the obtuse marginal branch. He had attempted cardioversion for his atrial fibrillation, as well as an ablation in 2014 which was unsuccessful. In September 2020 he was admitted with bronchitis and congestive heart failure his echocardiogram demonstrated an ejection fraction of 65% with pulmonary systolic pressures of 80 mmHg. He was diuresed, and a MT was performed which demonstrated a peak gradient across his aortic valve of 59 mmHg and a mean gradient of 30 mmHg his diuretics were adjusted and he has improved significantly with his most recent echocardiogram demonstrating pulmonary artery systolic pressures of 44 mmHg. The gradient across the aortic valve was 38 over 17 mmHg. In June of 2022, he had a fall and sustained a subdural hematoma and needed to be transferred to [facility]. He was evaluated and observed and he underwent an echocardiographic evaluation which demonstrated an ejection fraction of 58% and a stable [employer] prosthetic aortic valve. His pulm artery systolic pressure was 44 mmHg. While he was in the hospital he was noted to be bradycardic and his beta-pradeep was held. He was discharged with a 14-day event monitor which demonstrated some bradycardic episodes but no significant pauses were noted. He has followed up with us here in the office twice since his stroke and he appears to be doing quite well and stable. From a cardiac standpoint, the patient is doing well. He does acknowledge occasional palpitation. He denies chest pain, pressure or heaviness. He denies SOB, Orthopnea, and PND. He does not have bleeding issues; no blood in urine, stool or nosebleeds. He denies any decrease in energy level, myalgias, or claudication. He does not have edema, or sudden weight gain. He denies dizziness, lightheadedness, syncopal or near syncopal episodes, and headaches. Intake Vital Signs 05/16/24 09:13 06/27/24 10:48 06/27/24 11:15 Height 5 ft 9 in 5 ft 9 in Weight: 174 lb BMI 25.7 BP 154/69 H 146/71 H Blood Pressure Location Lt brachial Lt brachial Position Sitting Sitting Respiration 16 Pulse 67 67 Pulse Source Monitor Auscultation Intake Visit Reasons: 6 M FU Human Relations Professor Required: No Accompanied by: Self Is patient in pain?: No Allergies nut - unspecified Allergy (Intermediate, Verified 06/27/24 11:24) Food Allergy Medications ???Medication ???Instructions ???Recorded ???Confirmed ???Type cholecalciferol (vitamin D3) 125 125 mcg PO DAILY supplement 10/03/19 06/27/24 History mcg (5,000 unit) capsule furosemide 40 mg tablet 80 mg (2 x 40 mg) PO BID water 06/05/20 06/27/24 Rx #360 tabs escitalopram oxalate 20 mg tablet 20 mg PO DAILY 09/18/22 06/27/24 History atorvastatin 40 mg tablet 40 mg PO DAILY #90 tabs 10/13/22 06/27/24 Rx tamsulosin 0.4 mg capsule 0.4 mg PO DAILY 06/16/23 06/27/24 History levetiracetam 750 mg tablet 750 mg PO BID 11/13/23 06/27/24 History losartan 100 mg tablet 100 mg PO DAILY increased by 11/13/23 06/27/24 History Diego 11/12/2023. potassium chloride 20 mEq 20 meq PO DAILY 11/13/23 06/27/24 History tablet,extended release(part/cryst) (Klor-Con M) vitamins A,C,F-ujuz-clkykz 4,296 1 cap PO BID 11/13/23 06/27/24 History mcg-226 mg-90 mg capsule (PreserVision AREDS) warfarin 4 mg tablet 4 mg PO .COMPLEX #120 tabs 01/07/24 06/27/24 Rx donepezil 10 mg tablet 10 mg PO QHS #90 tabs 04/11/24 06/27/24 Rx Have you fallen in the past year?: No PFSH Medical History CVA (cerebral vascular accident) Subdural hematoma Community acquired pneumonia Left ventricular diastolic dysfunction Longstanding persistent atrial fibrillation Daytime somnolence Gasping for breath Snoring Acute gastritis with hemorrhage (02/10/19) Nonrheumatic aortic (valve) stenosis with insufficiency Pneumonia Acute blood loss anemia (02/10/19) Essential (primary) hypertension Atherosclerosis of coronary artery of [place] heart with angina pectoris Secondary pulmonary arterial hypertension Non-rhe (more content not included)... Normal [facility] Echo Completeon 06-06-2024 Echo Complete [facility] Cardi[facility] Services [address] [place] [address] Echo Complete 06/06/24 1253 MR#: [id number] Acct: [id number] Name: GEORGE MCCLAIN Rep #: [id number] : 1935 88 From: Albert Mojica MD Attending Dr: HAWK Grey Status: REG CLI Ordering Dr: Kelli Vivas Date: 05/24 12/15 Location: [facility] Sex: M C Admitted: Reason For Study: CHF Procedure This was a 2D Doppler, Color Flow transthoracic echocardiogram. Exam performed in department. Left Ventricle Normal LV size. Moderate concentric left ventricular hypertrophy. Left ventricular systolic function is normal. The left ventricular ejection fraction is 65 %. No regional wall motion abnormalities noted. Right Ventricle Mildly dilated right ventricle. Normal systolic function. Atria The left atrium is mildly enlarged. The right atrium is mildly enlarged. Mitral Valve There is moderate mitral annular calcification. Mild-Moderate (1-2+) eccentric mitral valve insufficiency. Tricuspid Valve Normal tricuspid valve. Moderate (2+) tricuspid valve insufficiency. Pulmonary artery systolic pressure is 59 mmHg. Moderate pulmonary hypertension. Aortic Valve Peak aortic valve gradient 33 mmHg. Mean aortic valve gradient 16 mmHg. Bileaflet mechanical aortic valve. Great Vessels Mildly dilated aortic root. The pulmonary artery is normal size. Pericardium/Pleural No pericardial effusion. MMode/2D Measurements Calculations LVIDd: 3.7 cm IVSd: 1.5 cm LVOT diam: 1.8 cm LVIDs: 2.7 cm LVPWd: 1.2 cm LVOT area: 2.5 cm2 RVDd: 4.5 cm FS: 26.8 % Ao root diam: 4.3 cm LAV(MOD-bp): 85.6 ml LA A4 area: 25.0 cm2 LAV(MOD-bp) Indexed: 44.5 ml/m2 LAV(MOD-sp2): 98.1 ml LAV(MOD-sp4): 75.5 ml LA dimension(2D): 4.8 cm RA A4 area: 24.0 cm2 Doppler Measurements Calculations MV E max nishi: 148.0 cm/sec Lat Peak E' Nishi: 8.9 cm/sec Med Peak E' Nishi: 5.5 cm/sec E/E' lat: 16.6 E/E' med: 26.9 MV V2 max: 185.7 cm/sec MV P1/2t max nishi: 187.2 cm/sec Ao V2 max: 288.7 cm/sec MV max P.8 mmHg MV P1/2t: 81.2 msec Ao max P.4 mmHg MV V2 mean: 83.3 cm/sec Ao V2 mean: 184.1 cm/sec MV mean P.7 mmHg MV dec slope: 675.7 cm/sec2 Ao mean P.8 mmHg MV V2 VTI: 42.2 cm MVA(P1/2t): 2.7 cm2 Ao V2 VTI: 56.2 cm AV (velocity ratio): 0.50 MVA(VTI): 1.7 cm2 MALU(I,D): 1.3 cm2 MALU(V,D): 1.1 cm2 LV V1 max: 125.8 cm/sec MR max nishi: 653.0 cm/sec SV(LVOT): 70.3 ml LV V1 max P.4 mmHg MR max P.5 mmHg LV V1 mean P.2 mmHg MR mean nishi: 534.6 cm/sec LV V1 mean: 82.3 cm/sec MR mean P.0 mmHg LV V1 VTI: 28.3 cm MR VTI: 217.8 cm PA V2 max: 147.8 cm/sec TR max nishi: 370.8 cm/sec TR max P.0 mmHg ECHO/Echo Complete Interpretation Summary Normal LV size. Moderate concentric left ventricular hypertrophy. Left ventricular systolic function is normal. The left ventricular ejection fraction is 65 %. Pulmonary artery systolic pressure is 59 mmHg. Moderate pulmonary hypertension. Bileaflet mechanical aortic valve. Ordering Physician: Kelli Vivas Referring Physician: Kelli Vivas Performed By: Anton So RCS 06/06/241753 Date Albert Mojica MD CC: Dr. Bashir Cortez MD; HAWK Grey Date Dictated: 06/06/24 1253 Date Transcribed: 06/06/241753 [address]enographic [address] Reporter: Signed [facility] Gram Stainon 06-01-20[address] GS [address] AND DR. CORTEZ IN THE RESULTS PER PT Acceptable Specimen? Yes (<25 Epithelial cells per/lpf) Gram Stain 4+ Gram positive cocci 2+ Gram positive rods 1+ Epithelial cells 2+ White Blood Cells Normal [facility] Comment on above: Performed By: #### L 300.3900 #### [facility] Laboratory [address] [place], [place], [id number] Respiratory Cultureon 2023 RESPC Ampicillin can be used for Beta-Lactamase negative isolates. Microorganism Spec Cult Trimeth/Sulfa, Chloramphenicol, Cefotaxime, Ciprofloxacin, Amoxicillin/Clavulani c Acid, and Oral 2nd/3rd Generation Cephalosporins are effective against both Beta-Lactamase positive and Beta-Lactamase negative isolates. Haemophilus influenzae Amount Growth 2+ Beta Lactamase-Reportable Negative [facility] Comment on above: Performed By: #### L 300.3900 #### [facility] Laboratory [address] [place], [place], [id number] RESPC Mixed normal respiratory arlen. No Streptococcus pneumoniae, beta-hemolytic Streptococcus or Staphylococcus aureus isolated. [facility] Comment on above: Performed By: #### L 300.3900 #### [facility] Laboratory [address] [place], [place], [id number] Gram Stainon 05-30-2024 GS Acceptable Specimen? No (>25 Epithelial cells per/lpf) Gram Stain 4+ Gram positive cocci 2+ Epithelial cells 2+ Gram positive rods 2+ Gram variable muna Normal [facility] Comment on above: Performed By: #### L 300.3900 #### [facility] Laboratory [address] [place], [address] Respiratory Cultureon 2023 RESPC Mixed normal respiratory arlen. No Streptococcus pneumoniae, beta-hemolytic Streptococcus or Staphylococcus aureus isolated. Normal [facility] Comment on above: Performed By: #### M 100.2400, .1999 ####[facility] [address] [place], [address] Gram Stainon 05-28-2024 GS Acceptable Specimen? Yes (<25 Epithelial cells per/lpf) Gram Stain 4+ Gram positive cocci 2+ Gram negative rods 2+ White Blood Cells 1+ Epithelial cells Normal [facility] Comment on above: Performed By: #### M 100.2400, ####[facility] [address] [place], [address] BNP,B-Type NATRIURETIC PEPTI Maurilio 05-24-2024 Natriuretic peptide B (Bld) [Mass/Vol] 164.2 pg/mL High 0-100 [facility] Comment on above: Performed By: #### L 500.2500, L503.6620, L100.0100 ####[facility] [address] [place], [address] Basic Metabolic Profile (BMP )on 05-24-2024 BUN/CRE 14.9 RATIO Normal 10-20 [facility] Comment on above: Performed By: #### L 500.2500, L503.6620, L100.0100 ####[facility] [address] [place], [address] CA,Total 9.5 mg/dL Normal 8.5-10.1 [facility] Comment on above: Performed By: #### L 500.2500, L503.6620, L100.0100 ####[facility] [address] [place], [address] Chloride [Moles/Vol] 111 mmol/L High 98-107 [facility] Comment on above: Performed By: #### L 500.2500, L503.6620, L100.0100 ####[facility] [address] [place], [address] CO2 [Moles/Vol] 25.0 mmol/L Normal 21.0-32.0 [facility] Comment on above: Performed By: #### L 500.2500, L503.6620, L100.0100 ####[facility] [address] [place], [address] Creatinine [Mass/Vol] 1.21 mg/dL Normal 0.70-1.30 [facility] Comment on above: Result Comment: The validity of the calculated GFR GFRAA in patients over 70 years has not been determined. Clinical correlation is essential. Performed By: #### L 500.2500, L503.6620, L100.0100 ####[facility] [address] [place], [address] EST GFR - AA 73 mL/min Normal >60 [facility] Comment on above: Result Comment: Afri can [place] GFR Calc Performed By: #### L 500.2500, L503.6620, L100.0100 ####[facility] [address] [place], [address] GAP 6 Normal 5-15 [facility] Comment on above: Performed By: #### L 500.2500, L503.6620, L100.0100 ####[facility] [address] [place], [address] GFR/1.73 sq M.predicted among non-blacks MDRD (S/P/Bld) [Vol rate/Area] 60 mL/min/{1.73_m2} Normal >60 [facility] Comment on above: Result Comment: Non- GFR Calc Performed By: #### L 500.2500, L503.6620, L100.0100 ####[facility] [address] [place], [address] Glucose [Mass/Vol] 114 mg/dL High 74-106 [facility] Comment on above: Result Comment: Fast ing Glucose result from 100 to 125 mg/dL suggests IMPAIRED HOMEOSTASIS per A.D.A. criteria. Performed By: #### L 500.2500, L503.6620, L100.0100 ####[facility] [address] [place], [address] Potassium [Moles/Vol] 3.6 mmol/L Normal 3.5-5.1 [facility] Comment on above: Performed By: #### L 500.2500, L503.6620, L100.0100 ####[facility] [address] [place], [address] Sodium [Moles/Vol] 141 mmol/L Normal 136-145 [facility] Comment on above: Performed By: #### L 500.2500, L503.6620, L100.0100 ####[facility] [address] [place], [address] Urea nitrogen [Mass/Vol] 18 mg/dL Normal 7-18 [facility] Comment on above: Performed By: #### L 500.2500, L503.6620, L100.0100 ####[facility] [address] [place], [address] CBC W/Diff, Automatedon 10-0 -2023 Absolute Lymph 1.80 X10 3/uL Normal 0.83-4.51 [facility] Comment on above: Performed By: #### L 500.2500, L503.6620, L100.0100 ####[facility] [address] [place], [address] Absolute Neut 8.0 X10 3/uL High 2.0-7.7 [facility] Comment on above: Performed By: #### L 500.2500, L503.6620, L100.0100 ####[facility] [address] [place], [address] Basophils/100 WBC (Bld) 0.7 % Normal 0-1 [facility] Comment on above: Performed By: #### L 500.2500, L503.6620, L100.0100 ####[facility] [address] [place], [address] Eosinophils/100 WBC (Bld) 1.5 % Normal 0-5 [facility] Comment on above: Performed By: #### L 500.2500, L503.6620, L100.0100 ####[facility] [address] [place], [address] Erythrocyte distribution width (RBC) [Ratio] 14.4 % Normal 11.6-14.6 [facility] Comment on above: Performed By: #### L 500.2500, L503.6620, L100.0100 ####[facility] [address] [place], [address] Hematocrit (Bld) [Volume fraction] 39.5 % Low 40-54 [facility] Comment on above: Performed By: #### L 500.2500, L503.6620, L100.0100 ####[facility] [address] [place], [address] Hemoglobin (Bld) [Mass/Vol] 12.8 g/dL Low 13.0-16. 5 [facility] Comment on above: Performed By: #### L 500.2500, L503.6620, L100.0100 ####[facility] [address] [place], [address] IG% 0.500 Normal 0.0-0.9 [facility] Comment on above: Result Comment: IG% - Immature Granulocytes (promyelocytes, myelocytes and metamyelocytes) > 1% indicates that a LEFT SHIFT is Present. Performed By: #### L 500.2500, L503.6620, L100.0100 ####[facility] [address] [place], [address] Lymphocytes/100 WBC (Bld) 16.2 % Low 19-41 [facility] Comment on above: Performed By: #### L 500.2500, L503.6620, L100.0100 ####[facility] [address] [place], [address] MCH (RBC) [Entitic mass] 30.7 pg Normal 27.0-32.0 [facility] Comment on above: Performed By: #### L 500.2500, L503.6620, L100.0100 ####[facility] [address] [place], [address] MCHC (RBC) [Mass/Vol] 32.4 g/dL Normal 32-36 [facility] Comment on above: Performed By: #### L 500.2500, L503.6620, L100.0100 ####[facility] [address] [place], [address] MCV (RBC) [Entitic vol] 94.7 fL High 80-94 [facility] Comment on above: Performed By: #### L 500.2500, L503.6620, L100.0100 ####[facility] [address] [place], [address] Monocytes/100 WBC (Bld) 9.2 % Normal 0-10 [facility] Comment on above: Performed By: #### L 500.2500, L503.6620, L100.0100 ####[facility] [address] [place], [address] Neutrophils/100 WBC (Bld) 71.9 % High 47-70 [facility] Comment on above: Performed By: #### L 500.2500, L503.6620, L100.0100 ####[facility] [address] [place], [address] Nucleated RBC (Bld) [#/Vol] 0 10*3/uL Normal 0-5 [facility] Comment on above: Performed By: #### L 500.2500, L503.6620, L100.0100 ####[facility] [address] [place], [address] Platelet mean volume (Bld) [Entitic vol] 9.8 fL Normal 6.2-12.0 [facility] Comment on above: Performed By: #### L 500.2500, L503.6620, L100.0100 ####[facility] [address] [place], [address] Platelets (Bld) [#/Vol] 206 10*3/uL Normal 150-450 [facility] Comment on above: Performed By: #### L 500.2500, L503.6620, L100.0100 ####[facility] [address] [place], [address] RBC (Bld) [#/Vol] 4.17 10*6/uL Low 4.6-6.2 [facility] Comment on above: Performed By: #### L 500.2500, L503.6620, L100.0100 ####[facility] [address] [place], [address] RDW SD 49.5 fl High 35.1-43.9 [facility] Comment on above: Performed By: #### L 500.2500, L503.6620, L100.0100 ####[facility] [address] [place], [address] WBC (Bld) [#/Vol] 11.1 10*3/uL High 4.4-11.0 [facility] Comment on above: Performed By: #### L 500.2500, L503.6620, L100.0100 ####[facility] [address] [place], [address] Chest PA and Lateralon 05-24 Chest PA and Lateral [facility] Imaging Services [address] [place] [address] Chest PA and Lateral MR#: [id number] Acct: [id number] Name: GEORGE MCCLAIN Rep #: [id number] : 1935 M 88 From: Skyler babcock MD PCP: Dr. Bashir Cortez MD Status: [facility] Study: Chest PA and Lateral Date of Exam: 05/24/24 Exam# [id number] Ordering Dr: Kelli Vivas [place] [id number] STUDY: X-RAY CHEST REASON FOR EXAM: Male, 88 years old. Shortness of breath, productive cough TECHNIQUE: PA and lateral views of the chest. COMPARISON: Comparison is made with prior study dated March 25, 2024. FINDINGS: Hyperinflation. Once again, there is evidence of increase interstitial markings in both lungs which have progressed as compared to prior study. This may represent a mild degree of CHF superimposed on bibasilar scarring more prominent in the left lung. There is no demonstrated pleural abnormality. Sternal cerclage wires and vascular clips are present from a prior sternotomy and coronary artery bypass graft procedure (CABG). Normal mediastinum and wendy. Normal visualized pulmonary arteries. There is atherosclerotic calcification of the aortic arch with tortuosity. There are diffuse degenerative changes of the visualized thoracic spine. Normal visualized ribs, clavicles, and shoulders. There is no demonstrated abnormality of the visualized soft tissue structures of the upper abdomen. 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 Electronically Signed: Skyler Dhaliwal MD at 9:53 EDT , CC: Dr. Bashir Cortez MD; HAWK Grey Stenographic Court Reporter: Signed Normal [facility] Protime w/INR Fingerstickon 05-24-2024 INR Coag (PPP) [Relative time] 3.4 {INR} Normal [facility] Comment on above: Result Comment: Crit ical Value > 4.0 Performed By: #### L 9200.0000 ####[facility] [address] [place], [place], [address] Protime Co[place]en 33.6 SEC High 11.7-14.9 [facility] Comment on above: Performed By: #### L 9200.0000 ####[facility] [address] [place], [place], [address] Neurology Visit Reporton Neurology Visit Report [facility] [address], [address] [place], [place] [address] OFFICE VISIT Date of Service: 04/11/24 MR#: [id number] Acct: [id number] Name: GEORGE MCCLAIN Rep #: [id number] : 1935 Provider: Dr. Chris haque MD Age/Sex: 88/M Location: [facility] Status: Signed with Addenda ADDENDUM by Dr. Chris Bradford MD on 09/15/24 at 1639 Addendum Addendum (09/15/2024): The patient experienced irritability as a side effect to donepezil 10 mg nightly and his dose of donepezil has now been reduced to 5 mg nightly. 09/15/24 1639 Date Chris Bradford MD cc: * Signed HPI HPI Chief Complaint: Est Care Details: Interim History: George returns for follow-up visit. He has a history of hypertension, hyperlipidemia, atrial fibrillation, [place] aortic valve replacement in 2000, and sleep apnea (on CPAP). He presents to the office alone. He stated that he has been experiencing some memory difficulty since around 2017. His memory difficulty had slightly worsened over time though no further worsening has been noted within recent months. He states that he has had some difficulty remembering past events. He, at times, forgets conversations. His now helps him in management of his medications. He has occasionally become briefly lost while driving. He has had some difficulty following directions for use of tools and other devices at home (he attributes this in part to his vision impairment due to macular degeneration). He has chronic bilateral hearing loss and uses hearing aids. He stated that his performance of calculations to manage his finances has been slower. He had a syncopal episode and resultant fall in 2021 and sustained a traumatic small left parafalcine subarachnoid hemorrhage (initially interpreted as trace left parafalcine acute subdural hematoma). This did not require surgical intervention. He stated that he has had some left leg weakness and some gait imbalance since his syncopal episode and fall in 2021. At his initial evaluation in November 2023 at this office, he denied having headaches or vertigo. He has had occasional lightheadedness. He has had numbness in the feet since around 2020. Laboratory studies performed earlier in 2023 revealed a mildly elevated serum glucose and abnormal serum free light chains. Memantine caused easy irritability and was discontinued. Donepezil was prescribed at a higher dose of 10 mg nightly however he he has been continuing his previous prescription of donepezil 5 mg nightly. He has not noticed any change in his memory since initiation of donepezil (possibly initiated in early 2023). Mini-Mental status exam score was 28/30 in November 2023. He reports that he has recently been treated for bronchitis and has taken a course of antibiotic. Physical Exam: Neuro: The patient is awake; he is mildly bradyphrenic; speech is fluent; he was unable to spell world backwards correctly; he was oriented to day of the week; he was able to subtract 7 from 100; he was able to recall 2 out of 3 objects after 3 minutes Neck: No bruits Heart: Irregularly irregular Supplemental Info Cardiac echo (11/12/2020): Normal LV size. Moderate concentric left ventricular hypertrophy. Left ventricular systolic function is normal. The estimated ejection fraction is 55 %. Stage 3 diastolic dysfunction. The left atrium is severely enlarged. The right atrium is severely enlarged. Pulmonary artery systolic pressure is 44 mmHg. Head and neck CTA (07/21/2022): COMPARISON: CT of the head, July 21, 2022. FINDINGS: Normal bilateral petrous carotid arteries. There is calcified plaque formation of the right cavernous carotid artery, without a cross-sectional luminal stenosis. There is calcified plaque formation of the left cavernous carotid artery, without a cross-sectional luminal stenosis. Normal right A1 segments of the anterior cerebral artery. Normal left A1 segments of the anterior cerebral artery. There is non-visualization of the anterior communicating artery (ACOM). Normal bilateral A2 segments of the anterior cerebral arteries. Normal right M1 and M2 segments of the middle cerebral arteries, with a normal M1 bifurcation. Normal left M1 and M2 segments of the middle cerebral arteries, with a normal M1 bifurcation. Normal right posterior communicating artery (PCOM). There is non-visualization of the left posterior communicating artery (PCOM). Normal bilateral vertebral arteries. Normal basilar artery with a normal basilar bifurcation. The visualized bilateral superior cerebellar (SCA) arteries are normal. Normal bilateral P1, P2 and visualized P3 segments of the posterior cerebral arteries. There is no demonstrated aneurysm of the [place] of [place]. There is no demonstrated abnormality of the visualized brain. AORTIC ARC (more content not included)... Normal [facility] Basophil percentageOrdered B y: Chris Bradford on 12-22-2023 Bilirubin [Mass/Vol] 1.60 mg/dL 0.20-1.00 [facility] Comment on above: For patients on eltr ombopag therapy, use of Dimension [place] TBIL is not recommended. Chloride [Moles/Vol] 108 mmol/L 98-107 [facility] Glucose [Mass/Vol] 111 mg/dL 74-106 [facility] Comment on above: Fasting Glucose resu lt from 100 to 125 mg/dL suggests IMPAIRED HOMEOSTASIS per A.D.A. criteria. Hemoglobin (Bld) [Mass/Vol] 13.9 g/dL 13.0-16. 5 [facility] Potassium [Moles/Vol] 4.2 mmol/L 3.5-5.1 [facility] Protein [Mass/Vol] 7.4 g/dL 6.4-8.2 [facility] Sodium [Moles/Vol] 139 mmol/L 136-145 [facility] WBC (Bld) [#/Vol] 11.7 10*3/uL 4.4-11.0 [facility] Determination of erythrocyte mean corpuscular volume (MCV)Ordered By: Chris Bradford on 12-22-2023 MCV (RBC) [Entitic vol] 92.8 fL 80-94 [facility] Erythrocyte distribution wid th ratioOrdered By: Chris Bradford on 12-22-2023 Erythrocyte distribution width (RBC) [Ratio] 13.9 % 11.6-14.6 [facility] Erythrocyte distribution wid th standard deviationOrdered By: Chrislexy Bradford on 12-22-2023 Erythrocyte distribution width (RBC) [Entitic vol] 47.3 fL 35.1-43.9 [facility] Hematocrit Auto (Bld) [Volum e fraction]Ordered By: Chris [facility]23 Hematocrit (Bld) [Volume fraction] 42.3 % 40-54 [facility] Laboratory - Chemistry and C hemistry - challengeOrdered By: Chris Bradford on 12-22-2023 Albumin/Globulin [Mass ratio] 1.2 {ratio} 0.9-2.4 [facility] ALP [Catalytic activity/Vol] 79 U/L 45-117 [facility] ALT [Catalytic activity/Vol] 32 U/L 16-61 [facility] CO2 [Moles/Vol] 25.0 mmol/L 21.0-32.0 [facility] Cobalamin (Vitamin B12) [Mass/Vol] 460 pg/mL 211-911 [facility] Globulin (S) [Mass/Vol] 3.3 g/dL 2.2-4.2 [facility] Urea nitrogen/Creatinine [Mass ratio] 20.9 mg/mg 10-20 [facility] Laboratory - CoagulationOrde red By: Albert Mojica on 12-22-2023 INR Coag (Bld) [Relative time] 2.9 {INR} [facility] PT Coag (PPP) [Time] 30.4 s 11.7-14.9 [facility] Laboratory - Hematology and Cell countsOrdered By: Chris Bradfodr on 12-22-2023 MCH (RBC) [Entitic mass] 30.5 pg 27.0-32.0 [facility] MCHC (RBC) [Mass/Vol] 32.9 g/dL 32-36 [facility] Platelet mean volume (Bld) [Entitic vol] 10.3 fL 6.2-12.0 [facility] Platelets (Bld) [#/Vol] 206 10*3/uL 150-450 [facility] No Panel InformationOrdered By: Chris Bradford on 12-22-2023 Estimated GFR (MDRD) Amer 78 mL/min >60 [facility] Comment on above: GFR Calc Estimated GFR (MDRD) Non-Af Amer 64 mL/min >60 [facility] Comment on above: Non- GFR Calc Folate 14.30 ng/mL 3.1-55.4 [facility] RBC Auto (Bld) [#/Vol]Ordere d By: Chris Bradford on 12-22-2023 RBC (Bld) [#/Vol] 4.56 10*6/uL 4.6-6.2 [facility] Serum or plasma calcium ana laura urement (mass/volume)Ordered By: Chris Bradford on 12-22-2023 Calcium [Mass/Vol] 9.6 mg/dL 8.5-10.1 [facility] Serum or plasma creatinine m easurement (mass/volume)Ordered By: Chris Bradford on 12-22-2023 Creatinine [Mass/Vol] 1.15 mg/dL 0.70-1.30 [facility] Comment on above: The validity of the calculated GFR & GFRAA in patients over 70 years has not been determined. Clinical correlation is essential. Serum or plasma thyroid stim ulating hormone (TSH) measurement (units/volume)Ordered By: Chris Bradford on 12-22-2023 TSH Qn 0.88 uIU/mL 0.358-3.74 [facility] Serum or plasma urea nitroge n measurement (mass/volume)Ordered By: Chris Bradford on 12-22-2023 Urea nitrogen [Mass/Vol] 24 mg/dL 7-18 [facility] Thin prep Papanicolaou smear with manual screeningOrdered By: Chris Bradford on 12-22-2023 Thin prep Papanicolaou smear with manual screening 4.1 g/dL 3.2-5.0 [facility] Thin prep Papanicolaou smear with manual screening 35 U/L 15-37 [facility] Thin prep Papanicolaou smear with manual screening 6 5-15 [facility] Laboratory - CoagulationOrde red By: Albert Mojica on 11-12-2023 INR Coag (Bld) [Relative time] 1.6 {INR} [facility] PT Coag (PPP) [Time] 18.9 s 11.7-14.9 [facility] Whole blood prothrombin time Ordered By: Albert Mojica on 11-12-2023 PT Coag (Bld) [Time] 17.2 s 11.7-14.9 [facility] CNPNon 07-09-2023 CNPN Telephone (HNQ) GEORGE MCCLAIN ([id number]) 1935 M Date Time Provider Department 07/09/23 FE VIVAS During your visit today, we recorded the following information about you: Fe Vivas 07/09/2023 9:52 AM Signed Called to pass on that Dr. Akanksha Hernandez does not feel it is necessary to proceed with vestibular testing if Saleem is not a candidate for a cochlear implant at this time. 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 - tamsulosin (FLOMAX) 0.4 mg Take 0.4 mg by mouth once daily. - Ciclopirox (LOPROX) 8 % solution APPLY TOPICALLY TO AFFECTED TOENAIL(S) ONCE DAILY. CLEANSE TOENAILS ONCE WEEKLY WITH RUBBING ALCOHOL. - triamcinolone acetonide (KENALOG) 0.1 % cream APPLY TO ITCHY AREAS ON BODY ONCE DAILY NEEDED - vit C/E/Zn/coppr/lutein/z eaxan (PRESERVISION AREDS-2 ORAL) Take 1 capsule by mouth once daily. - fluticasone (FLONASE) 50 mcg/actuation nasal spray 2 sprays in each nostril daily x1 week then 1-2 sprays in each nostril daily. (use smallest dose possible for symptom control after week 1). - atorvastatin (LIPITOR) 40 mg tablet 1 tablet by ORAL/FEEDING TUBE route daily at bedtime. - levETIRAcetam (KEPPRA) 750 mg tablet 1 tablet by ORAL/FEEDING TUBE route twice daily. - allopurinol (ZYLOPRIM) 100 mg tablet Take 100 mg by mouth once daily. - furosemide (LASIX) 40 mg tablet Take 80 mg by mouth twice daily. - cholecalciferol, vitamin D3, 250 mcg (10,000 unit) tab Take 1 tablet by mouth once daily. - escitalopram oxalate (LEXAPRO) 20 mg tablet Take 20 mg by mouth once daily. - potassium chloride (KCL-20 ORAL) Take 1 tablet by mouth once daily. - magnesium oxide,aspartate,citr 400 mg magnesium cap Take 1 capsule by mouth once daily. - losartan (COZAAR) 50 mg tablet Take 50 mg by mouth once daily. - warfarin (COUMADIN) 4 mg tablet Take 4-6 mg by mouth daily as directed. 4mg every day except for 6mg on the 7th day as of 09.03.2022 Problem List As Of Date 07/09/2023 Noted Resolved Nonallopathic lesion of cervical region, not el* Osteoarth NOS-other site [M19.90] Lumbago [M54.50] Diverticulosis of colon (without mention of hem* Cervicalgia [M54.2] Elev transaminase/LDH [R74.01, R74.02] Aortic valve disorders [I35.9] Dermatophytosis of nail [B35.1] Pure hyperglyceridemia [E78.1] HTN (hypertension) [I10] Obesity, unspecified [E66.9] Hemorrhage of rectum and anus [K62.5] SDH (subdural hematoma) [S06.5XAA] 07/21/2022 Subarachnoid hemorrhage following injury, no lo*07/21/2022 Facial droop [R29.810] 07/21/2022 Dysarthria [R47.1] 07/21/2022 Fall [W19.XXXA] 07/21/2022 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 of long 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 [Z79.0*07/21/2022 Persistent atrial fibrillation (HCC) [I48.19] 08/26/2021 QT prolongation [R94.31] 07/22/2022 Bradycardia [R00.1] 07/22/2022 Urinary retention [R33.9] 07/23/2022 Gout [M10.9] 02/10/2022 Chronic diastolic heart failure (HCC) [I50.32] 04/02/2017 Arteriosclerosis of coronary artery [I25.10] 11/07/2010 Coronary arteriosclerosis in [place] artery [I25*04/30/2001 Daytime somnolence [R40.0] 10/05/2022 Dyspnea [R06.00] 07/25/2016 History of radiofrequency ablation (RFA) proced*10/05/2022 Hyperlipidemia [E78.5] 11/07/2010 Left ventricular diastolic dysfunction [I51.9] 10/05/2022 Obstructive sleep apnea syndrome [G47.33] 07/05/2013 Pulmonary arterial hypertension (HCC) [I27.21] 04/02/2017 Snoring [R06.83] 10/05/2022 At risk for stroke [Z91.89] 10/05/2022 Encounter Status:Closed by FE VIVAS on 07/09/23 [facility] CNOVon 07-07-2023 CNOV Office Visit (SAVANNA ) GEORGE MCCLAIN ([id number]) 1935 M Date Time Provider Department 07/07/23 1:00 PM SHERLYN RIDLEY During your visit today, we recorded the following information about you: Sherlyn Ridley AUD 07/10/2023 1:24 PM Signed [facility] [place] [facility] ADULT COCHLEAR IMPLANT CANDIDACY EVALUATION Audiometric Testing Name: George Mcclain CC#: [id number] Date of Service: July 07, 2023 Date of : 1935 Age: [age] year old Referred by: Mihaela Hernandez MD This patient was referred for an evaluation to determine cochlear implant candidacy. Relevant case history includes the following: HISTORY: Audiologic Audiometric testing was completed at the [facility] on 06/23/2023 with the following results: RIGHT: Moderate at 125 gradually sloping to severe SNHL. *WRS: 56% LEFT: Mild at 125 Hz gradually sloping to moderately-severe SNHL. *WRS: 52% Hearing loss: Reported having progressive hearing loss for 10 years, and doesn't notice if one ear is better then the other. Tinnitus: Denied Dizziness: Is currently going to PT. Reported that his left leg is weaker following a fall which resulted in a brain bleed. Noted that he'll sometimes experience a lightheadedness when he's watching TV in bed. Otalgia: Denied Otorrhea: Denied Aural Fullness: Denied Family History of Hearing loss: Father, grandfather, and brother all wore hearing aids, hearing loss was reportedly due to aging. 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 Otologic/medical Previous Ear Surgeries: Denied Headaches: Denied Medical Conditions: Reported having macular degeneration, which limits his vision, especially at night History of chemotherapy/radiatio n: Denied Head trauma: Fell and hit his head a year ago in June 2022 resulting in a subdural hematoma, stroke-like symptoms and persistent left sided leg weakness Seizures: Denied Amplification Current Make/Model: Pete Nieto with power domes. Fitting date: 1 year ago Last programmed: 1 year ago Managed by: [employer] in [place]. Goes once a month to get his hearing aids cleaned and checked. History of amplification; Has worn hearing aids consistently since first diagnosed with hearing loss. Has had 4 different sets of hearing aids. Communication limitations/participa tion restrictions Social: Reported that recently he's been taking himself out of social situations due to struggling with hearing. He noted that he does well with one on one conversations and struggles with multiple people. Reported having a hard time at voodoo as well. He reported that he struggles communicating with his especially when she's turned away from him or if she's in a different room. Occupational: retired. Phone: Reported that he tries not to use the home phone often because he struggles to understand. Has a caption home phone. Does not use a cell phone Television: Noted that him and his don't normally watch TV together. He stated that when he does watch TV it's alone in a different room with the closed captions on. Other Family Support: was at the appointment today and is very supportive of trying to help him hear better. Rest of family lives out of state. AUDIOMETRIC TESTING HEARING AID [facility] were programmed to the patient?s most recent audiogram. Devices were verified utilizing the [employer] equipment to NAL-NL 1 fitting methods. AIDED SII Meeting Target NAL-NL1 Gain RIGHT Ear CLINIC Device 64 Yes LEFT Ear CLINIC Device 68 Yes A CNC word list was administered in the right aided and left aided condition with the patient's hearing aids and the Clinic's hearing aids. Results indicated the patient performed slightly better with his devices and the patient subjectively reported the devices sounded about the same. Based on CNC word lists results, testing proceeded using the patient's hearing devices. AIDED SPEECH TESTING The contralateral ear was Plugged and Muffed during testing. Speech perception testing was completed using recorded stimuli in quiet in the sound field at conversational level (60 chief science officer); results were: Mmgmqfmxi-Othtvqw-Erp sonant Words (CNC) Test Condition List # Phonemes Words Right Ear (Patient MOORE) 3 89% 80% Left Ear (Patient MOORE) 9 85% 72% Right Ear (Clinic MOORE) 5 89% 76% Left Ear (Clinic MOORE) 7 67% 32% Bilateral 4 81% 68% AZ BIO (quiet, -10 dB HL) Test Condition List # Score Right Ear 1 42% Left Ear 7 45% Bilateral 4 62% AZ BIO (+5 SNR) Test Condition List # Score Right Ear 2 19% Left Ear 8 18% Bilateral 6 51% INTERPRETATION OF RESULTS Patient perception testing suggests patient performed better (more content not included)... Normal [facility] Thomson Basophil percentageOrdered B y: Fernando Cortez on 07-06-2023 Chloride [Moles/Vol] 105 mmol/L 98-107 [facility] Glucose [Mass/Vol] 91 mg/dL 74-106 [facility] Potassium [Moles/Vol] 3.6 mmol/L 3.5-5.1 [facility] Sodium [Moles/Vol] 140 mmol/L 136-145 [facility] WBC (Bld) [#/Vol] 11.2 10*3/uL 4.4-11.0 [facility] Blood erythrocytes count (nu mber/volume)Ordered By: Fernando Cortez on 07-06-2023 RBC (Bld) [#/Vol] 4.77 10*6/uL 4.6-6.2 [facility] Blood hemoglobin measurement (mass/volume)Ordered By: Fernando Cortez on 07-06-2023 Hemoglobin (Bld) [Mass/Vol] 14.7 g/dL 13.0-16. 5 [facility] Blood platelet mean volumeOr dered By: Fernando Cortez on 07-06-2023 Platelet mean volume (Bld) [Entitic vol] 10.0 fL 6.2-12.0 [facility] Determination of erythrocyte mean corpuscular volume (MCV)Ordered By: Fernando Cortez on 07-06-2023 MCV (RBC) [Entitic vol] 93.7 fL 80-94 [facility] Hematocrit Auto (Bld) [Volum e fraction]Ordered By: Fernando Cortez on 07-06-2023 Hematocrit (Bld) [Volume fraction] 44.7 % 40-54 [facility] Laboratory - Chemistry and C hemistry - challengeOrdered By: Fernando Cortez on 07-06-2023 CO2 [Moles/Vol] 27.0 mmol/L 21.0-32.0 [facility] Cobalamin (Vitamin B12) [Mass/Vol] 475 pg/mL 211-911 [facility] Urea nitrogen/Creatinine [Mass ratio] 22.3 mg/mg 10-20 [facility] Laboratory - Hematology and Cell countsOrdered By: Fernando Cortez on 07-06-2023 Erythrocyte distribution width (RBC) [Entitic vol] 45.8 fL 35.1-43.9 [facility] Erythrocyte distribution width (RBC) [Ratio] 13.5 % 11.6-14.6 [facility] MCH (RBC) [Entitic mass] 30.8 pg 27.0-32.0 [facility] MCHC Auto (RBC) [Mass/Vol]Or dered By: Fernando Cortez on 07-06-2023 MCHC (RBC) [Mass/Vol] 32.9 g/dL 32-36 [facility] No Panel InformationOrdered By: Fernando Cortez on 07-06-2023 Estimated GFR (MDRD) Amer 103 mL/min >60 [facility] Comment on above: GFR Calc Estimated GFR (MDRD) Non-Af Amer 85 mL/min >60 [facility] Comment on above: Non- GFR Calc Thyroid Stimulating Hormone (TSH) 1.06 uIU/mL 0.358-3.74 [facility] Vitamin D 25-Hydroxy 38.5 ng/mL [facility] Comment on above: Vitamin D 25(OH) Sta tus Range Deficiency <20 ng/mL (50nmol/L) Insufficiency 20 - 30 ng/mL (50 - 75 nmol/L) Sufficiency 30 - 100 ng/mL (75 - 250 nmol/L) Toxicity >100 ng/mL (>250 nmol/L) Platelets bldOrdered By: Stefania Cortez on 07-06-2023 Platelets (Bld) [#/Vol] 268 10*3/uL 150-450 [facility] Serum or plasma calcium ana laura urement (mass/volume)Ordered By: Fernando Cortez on 07-06-2023 Calcium [Mass/Vol] 9.4 mg/dL 8.5-10.1 [facility] Serum or plasma creatinine m easurement (mass/volume)Ordered By: Fernando Cortez on 07-06-2023 Creatinine [Mass/Vol] 0.90 mg/dL 0.70-1.30 [facility] Comment on above: The validity of the calculated GFR & GFRAA in patients over 70 years has not been determined. Clinical correlation is essential. Serum or plasma urea nitroge n measurement (mass/volume)Ordered By: Fernando Cortez on 07-06-2023 Urea nitrogen [Mass/Vol] 20 mg/dL 7-18 [facility] Thin prep Papanicolaou smear with manual screeningOrdered By: Fernando Cortez on 07-06-2023 Thin prep Papanicolaou smear with manual screening 8 5-15 [facility] CNPNon 07-03-2023 CNPN Telephone (HNQ) GEORGE MCCLAIN ([id number]) 1935 M Date Time Provider Department 07/03/23 FE VIVAS HNQ During your visit today, we recorded the following information about you: Fe Vivas 07/03/2023 11:19 AM Addendum Will have to cancel this afternoon's appointment due to urgent provider need to be out. Rescheduled for Anderson at 1:00 on Jul 07. 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 - tamsulosin (FLOMAX) 0.4 mg Take 0.4 mg by mouth once daily. - Ciclopirox (LOPROX) 8 % solution APPLY TOPICALLY TO AFFECTED TOENAIL(S) ONCE DAILY. CLEANSE TOENAILS ONCE WEEKLY WITH RUBBING ALCOHOL. - triamcinolone acetonide (KENALOG) 0.1 % cream APPLY TO ITCHY AREAS ON BODY ONCE DAILY NEEDED - vit C/E/Zn/coppr/lutein/z eaxan (PRESERVISION AREDS-2 ORAL) Take 1 capsule by mouth once daily. - fluticasone (FLONASE) 50 mcg/actuation nasal spray 2 sprays in each nostril daily x1 week then 1-2 sprays in each nostril daily. (use smallest dose possible for symptom control after week 1). - atorvastatin (LIPITOR) 40 mg tablet 1 tablet by ORAL/FEEDING TUBE route daily at bedtime. - levETIRAcetam (KEPPRA) 750 mg tablet 1 tablet by ORAL/FEEDING TUBE route twice daily. - allopurinol (ZYLOPRIM) 100 mg tablet Take 100 mg by mouth once daily. - furosemide (LASIX) 40 mg tablet Take 80 mg by mouth twice daily. - cholecalciferol, vitamin D3, 250 mcg (10,000 unit) tab Take 1 tablet by mouth once daily. - escitalopram oxalate (LEXAPRO) 20 mg tablet Take 20 mg by mouth once daily. - potassium chloride (KCL-20 ORAL) Take 1 tablet by mouth once daily. - magnesium oxide,aspartate,citr 400 mg magnesium cap Take 1 capsule by mouth once daily. - losartan (COZAAR) 50 mg tablet Take 50 mg by mouth once daily. - warfarin (COUMADIN) 4 mg tablet Take 4-6 mg by mouth daily as directed. 4mg every day except for 6mg on the 7th day as of 09.03.2022 Problem List As Of Date 07/03/2023 Noted Resolved Nonallopathic lesion of cervical region, not el* Osteoarth NOS-other site [M19.90] Lumbago [M54.50] Diverticulosis of colon (without mention of hem* Cervicalgia [M54.2] Elev transaminase/LDH [R74.01, R74.02] Aortic valve disorders [I35.9] Dermatophytosis of nail [B35.1] Pure hyperglyceridemia [E78.1] HTN (hypertension) [I10] Obesity, unspecified [E66.9] Hemorrhage of rectum and anus [K62.5] SDH (subdural hematoma) [S06.5XAA] 07/21/2022 Subarachnoid hemorrhage following injury, no lo*07/21/2022 Facial droop [R29.810] 07/21/2022 Dysarthria [R47.1] 07/21/2022 Fall [W19.XXXA] 07/21/2022 Current use of half-way anticoagulation [Z79.0*07/21/2022 Persistent atrial fibrillation (HCC) [I48.19] 08/26/2021 QT prolongation [R94.31] 07/22/2022 Bradycardia [R00.1] 07/22/2022 Urinary retention [R33.9] 07/23/2022 Gout [M10.9] 02/10/2022 Chronic diastolic heart failure (HCC) [I50.32] 04/02/2017 Arteriosclerosis of coronary artery [I25.10] 11/07/2010 Coronary arteriosclerosis in [place] artery [I25*04/30/2001 Daytime somnolence [R40.0] 10/05/2022 Dyspnea [R06.00] 07/25/2016 History of radiofrequency ablation (RFA) proced*10/05/2022 Hyperlipidemia [E78.5] 11/07/2010 Left ventricular diastolic dysfunction [I51.9] 10/05/2022 Obstructive sleep apnea syndrome [G47.33] 07/05/2013 Pulmonary arterial hypertension (HCC) [I27.21] 04/02/2017 Snoring [R06.83] 10/05/2022 At risk for stroke [Z91.89] 10/05/2022 Encounter Status:Closed by FE VIVAS on 07/03/23 [facility] Laurie 06-23-2023 CNOV Office Visit (PARULOLIN ) GEORGE MCCLAIN ([id number]) 1935 M Date Time Provider Department 06/23/23 1:00 PM MIHAELA WOODS During your visit today, we recorded the following information about you: Mihaela Woods MD 06/23/2023 1:55 PM Signed OTOLOGY AND NEUROTOLOGY NEW PATIENT VISIT Date: 06/23/2023 Requested by: Self PCP: Bashir Cortez MD Chief complaint: Hearing Loss (Discuss CI) History of present illness: George Mcclain is a 87 year old male who was seen for cochlear implant. He also has bilateral macular degeneration Hearing loss: Gradual in both ears for about 10 years. Has difficulty hearing in noise. Better ear is neither one Use phone? No Aided: both, for about 9 years, current set 1-2 years old Tinnitus: No Vertigo: No Imbalance: Yes, especially after a fall last year Ear pain: No Ear drainage: No Prior ear surgery/trauma: No Prevnar-13: 04/12/2015 Pneumovax: 09/26/2003 ACTIVE PROBLEM LIST Nonallopathic Lesion of Cervical Region, Not Elsewhere Classified Osteoarthrosis, Unspecified Whether Generalized Or Localized, Other Specified Sites Lumbago Diverticulosis of Colon (Without Mention of Hemorrhage) Cervicalgia Nonspecific Elevation of Levels of Transaminase Or Lactic Acid Dehydrogenase (Ldh) Aortic Valve Disorders Dermatophytosis of Nail Pure Hyperglyceridemia Htn (Hypertension) Obesity, Unspecified Hemorrhage of Rectum and Anus Sdh (Subdural Hematoma) (Hcc) Subarachnoid Hemorrhage Following Injury, No Loss of Consciousness (Hcc) Facial Droop Dysarthria Fall Current Use of Correction Anticoagulation Persistent Atrial Fibrillation (Hcc) Qt Prolongation Bradycardia Urinary Retention Gout Chronic Diastolic Heart Failure (Hcc) Arteriosclerosis of Coronary Artery Coronary Arteriosclerosis in [place] Artery Daytime Somnolence Dyspnea History of Radiofrequency Ablation (Rfa) Procedure for Cardiac Arrhythmia Hyperlipidemia Left Ventricular Diastolic Dysfunction Obstructive Sleep Apnea Syndrome Pulmonary Arterial Hypertension (Hcc) Snoring At Risk for Stroke PAST MEDICAL HISTORY Diagnosis Date Aortic valve disorders At risk for stroke Cervicalgia Coronary atherosclerosis Dermatophytosis of nail Diverticulosis of colon (without mention of hemorrhage) Essential hypertension, benign Hemorrhage of rectum and anus Lesion of plantar nerve Lumbago Nonallopathic lesion of cervical region, not elsewhere classified Nonspecific elevation of levels of transaminase or lactic acid dehydrogenase (LDH) Obesity, unspecified Osteoarthrosis, unspecified whether generalized or localized, other specified sites Pure hyperglyceridemia Unspecified hyperplasia of prostate PAST SURGICAL HISTORY Procedure Laterality Date CHOLECYSTECTOMY COLONOSCOPY FLX DX W/COLLJ SPEC WHEN PFRMD 05/2009 Colonoscopy COLONOSCOPY FLX DX W/COLLJ SPEC WHEN PFRMD 05/01/2011 Colonoscopy PAST SURGICAL HISTORY OF 04/2001 aortic valve replacement surgery- mechanical - [facility] - Dr. Esteban TONSILLECTOMY PRIMARY/SECONDARY Tonsillectomy and adeniodectomy Social History Tobacco Use Smoking status: Former Smokeless tobacco: Never Substance Use Topics Alcohol use: Yes Alcohol/week: 5.0 standard drinks of alcohol Types: 1 Glasses of Wine (5oz), 1 Cans of Beer (12oz) per week Drug use: Never ALLERGIES No Known Allergies Current Outpatient Medications on File Prior to Visit Medication Sig Zinc Gluconate 50 mg tablet Take 50 mg by mouth once daily. tamsulosin (FLOMAX) 0.4 mg Take 0.4 mg by mouth once daily. triamcinolone acetonide (KENALOG) 0.1 % cream APPLY TO ITCHY AREAS ON BODY ONCE DAILY NEEDED vit C/E/Zn/coppr/lutein/z eaxan (PRESERVISION AREDS-2 ORAL) Take 1 capsule by mouth once daily. atorvastatin (LIPITOR) 40 mg tablet 1 tablet by ORAL/FEEDING TUBE route daily at bedtime. allopurinol (ZYLOPRIM) 100 mg tablet Take 100 mg by mouth once daily. furosemide (LASIX) 40 mg tablet Take 80 mg by mouth twice daily. cholecalciferol, vitamin D3, 250 mcg (10,000 unit) tab Take 1 tablet by mouth once daily. escitalopram oxalate (LEXAPRO) 20 mg tablet Take 20 mg by mouth once daily. potassium chloride (KCL-20 ORAL) Take 1 tablet by mouth once daily. magnesium oxide,aspartate,citr 400 mg magnesium cap Take 1 capsule by mouth once daily. losartan (COZAAR) 50 mg tablet Take 50 mg by mouth once daily. warfarin (COUMADIN) 4 mg tablet Take 4-6 mg by mouth daily as directed. 4mg every day except for 6mg on the 7th day as of 09.03.2022 Ciclopirox (LOPROX) 8 % solution APPLY TOPICALLY TO AFFECTED TOENAIL(S) ONCE DAILY. CLEANSE TOENAILS ONCE WEEKLY WITH RUBBING ALCOHOL. fluticasone (FLONASE) 50 mcg/actuation nasal spray 2 sprays in each nostril daily x1 week then 1-2 sprays in each nostril daily. (use smallest dose possible for (more content not included)... Normal [facility] Office Visit (OTAUIN ) GEORGE MCCLAIN ([id number]) 1935 M Date Time Provider Department 06/23/23 12:30 PM ASPEN CHANG During your visit today, we recorded the following information about you: Aspen Chang AuD, CCC-A 06/23/2023 4:41 PM Signed [facility] [place] AUDIOLOGIC EVALUATION REPORT Name: George Mcclain CCF#: [id number] Date of Service: 06/23/2023 Date of : 1935 Age: [age] year old Referred by: Mihaela Hays MD Referred for: Evaluation of the cause of disorder of hearing, tinnitus, or balance. Referral documented: In an order in [facility] Patient's major complaints: Reduced hearing in both ears Hearing loss: known hearing loss for at least 10 years Tinnitus: denied Ear pain: denied Aural fullness: denied Otorrhea: denied History of ear infections: denied History of otologic surgeries: denied Dizziness: patient had a stroke about 6 months ago and has had balance issues since then. Has received physical therapy. 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 See Audiogram in Procedures Tab for additional reported history and symptoms. Risk of Falls Documentation for over 65 years old: fell 6 months ago and then he suffered a stroke from the bleeding in his brain. (fall details needed) IMPRESSIONS RIGHT EAR: Sensorineural hearing loss LEFT EAR: Sensorineural hearing loss Comparison of today's results with previous test results: No previous results available AUDIOLOGIC EVALUATION Following is a brief interpretation of the obtained findings from the audiologic evaluation. Refer to the Auditory Test Record for complete audiometric results. The patient was counseled about the test findings and appropriate audiologic recommendations were made. SUMMARY: Audiogram can be viewed under Procedures Tab OTOSCOPY RIGHT EAR: Otoscopic inspection revealed ear canal was clear with minimal amount of non-occluding cerumen present and identifiable cone of light suggesting WNL middle ear system. LEFT EAR: Otoscopic inspection revealed ear canal was clear with minimal amount of non-occluding cerumen present and identifiable cone of light suggesting WNL middle ear system. TYMPANOMETRY Description of procedure: This test is an objective evaluation of middle ear function. CPT code: 44631 RIGHT EAR: Normal ME function. LEFT EAR: Normal ME function. ACOUSTIC REFLEXES Description of procedure: This test is an objective measure of auditory and facial nerve pathways. CPT code: 08636, 34405 RIGHT EAR PROBE EAR: (ipsi right stimulus ear; contralateral left stimulus ear): Acoustic Reflex Pattern Did not test Acoustic Reflex Decay (left stimulus ear): Did not test. LEFT EAR PROBE EAR: (ipsi left stimulus ear; contralateral right stimulus ear): Acoustic Reflex Pattern Did not test Acoustic Reflex Decay (right stimulus ear):Did not test. PURE TONE AUDIOMETRY AND SPEECH TESTING Description of procedure: This test is an objective evaluation hearing sensitivity via air and bone conduction and speech recognition testing. CPT code: 48662 RIGHT EAR: Hearing Sensitivity: Moderate to severe SNHL Word Recognition Score: Very Poor (56%). WRS is poorer than expected given hearing sensitivity. Words were presented at 85 dB HL is above (greater than or equal to 60 dB HL) intensity level for average conversational speech. The NU-6 Word List (25 words) was used. LEFT EAR: Hearing Sensitivity: Mild to moderately-severe SNHL Word Recognition Score: Very Poor (52%). WRS is poorer than expected given hearing sensitivity. Words were presented at 80 dB HL which is above (greater than or equal to 60 dB HL) intensity level for average conversational speech. The NU-6 Word List (25 words) was used. RECOMMENDATIONS * Continue medical follow-up with Mihaela Hernandez MD. * Re-evaluation as medically indicated. * Return if a change in hearing is noted. * Call [phone] to schedule an appointment for an implantable hearing device evaluation. AuD. Leeroy, [facility]-A Senior Mathematical Technician copied to: Mihaela Hernandez MD RIVERA Abbrev- iation Definition Degree of hearing sensitivity dB range WNL within normal limits WNL 0 - 20 SNHL sensorineural hearing loss Mild 20-40 CHL conductive hearing loss Moderate 40-55 MHL mixed hearing loss Moderately-Severe 55-70 (more content not included)... Normal [facility] - CoagulationOrde red By: Albert Mojica on 06-16-2023 INR Coag (Bld) [Relative time] 2.5 {INR} [facility] Comment on above: Critical Value > 4.0 Whole blood prothrombin time Ordered By: Albert Galina on 06-16-2023 PT Coag (Bld) [Time] 26.8 s 11.7-14.9 [facility] - CoagulationOrde red By: [place] Galina on 04-11-2023 INR Coag (Bld) [Relative time] 2.5 {INR} [facility] Comment on above: Critical Value > 4.0 Whole blood prothrombin time Ordered By: Albert Galina on 04-11-2023 PT Coag (Bld) [Time] 26.6 s 11.7-14.9 [facility] - CoagulationOrde red By: Albert Galina on 03-06-2023 INR Coag (Bld) [Relative time] 3.0 {INR} [facility] Comment on above: Critical Value > 4.0 Whole blood prothrombin time Ordered By: [place] Galina on 03-06-2023 PT Coag (Bld) [Time] 32.2 s 11.7-14.9 [facility] - CoagulationOrde red By: [place] Galina on 02-09-2023 INR Coag (Bld) [Relative time] 2.5 {INR} [facility] Comment on above: Critical Value > 4.0 Whole blood prothrombin time Ordered By: Albert Mojica on 02-09-2023 PT Coag (Bld) [Time] 26.9 s 11.7-14.9 [facility] - CoagulationOrde red By: Albert Mojica on 02-02-2023 PT Coag (PPP) [Time] 21.2 s 11.7-14.9 [facility] - CoagulationOrde red By: Dr. Mojica on 01-20-2023 INR Coag (Bld) [Relative time] 1.9 {INR} [facility] Comment on above: Critical Value > 4.0 Whole blood prothrombin time Ordered By: Dr. Mojica on 01-20-2023 PT Coag (Bld) [Time] 21.0 s 11.7-14.9 [facility] Absolute lymphocyte countOrd ered By: Dr. Cortez on 01-02-2023 Lymphocytes Auto (Unsp spec) [#/Vol] 1.97 10*3/uL 0.83-4.51 [facility] Basophil percentageOrdered B y: Dr. Cortez on 01-02-2023 Basophils/100 WBC (Bld) 0.9 % 0-1 [facility] Bilirubin [Mass/Vol] 1.40 mg/dL 0.20-1.00 [facility] Comment on above: For patients on eltr ombopag therapy, use of Dimension [place] TBIL is not recommended. Chloride [Moles/Vol] 109 mmol/L 98-107 [facility] Cholesterol [Mass/Vol] 133 mg/dL <200 [facility] Comment on above: <200 mg/dL Desirable 200-240 mg/dL Borderline >240 mg/dL High Risk Eosinophils/100 WBC (Bld) 1.4 % 0-5 [facility] Glucose [Mass/Vol] 123 mg/dL 74-106 [facility] Comment on above: Fasting Glucose resu lt from 100 to 125 mg/dL suggests IMPAIRED HOMEOSTASIS per A.D.A. criteria. Neutrophils (Bld) [#/Vol] 6.8 10*3/uL 2.0-7.7 [facility] Neutrophils/100 WBC (Bld) 67.7 % 47-70 [facility] Potassium [Moles/Vol] 3.8 mmol/L 3.5-5.1 [facility] Protein [Mass/Vol] 7.5 g/dL 6.4-8.2 [facility] Sodium [Moles/Vol] 141 mmol/L 136-145 [facility] Triglyceride [Mass/Vol] 115 mg/dL <199 [facility] Comment on above: The drugs N-Acetylcy steine and Metamizole may falsely depress this assay.Serum Triglycerides Reference Interval Normal <150 mg/dL Borderline high 150 - 199 mg/dL High 200 - 499 mg/dL Very High > or = 500 mg/dL WBC (Bld) [#/Vol] 10.0 10*3/uL 4.4-11.0 [facility] Blood erythrocytes count (nu mber/volume)Ordered By: Dr. Cortez on 01-02-2023 RBC (Bld) [#/Vol] 4.53 10*6/uL 4.6-6.2 [facility] Blood hemoglobin measurement (mass/volume)Ordered By: Dr. Cortez on 01-02-2023 Hemoglobin (Bld) [Mass/Vol] 14.2 g/dL 13.0-16. 5 [facility] Blood lymphocytes/100 leukoc ytesOrdered By: Dr. Cortez on 01-02-2023 Lymphocytes/100 WBC (Bld) 19.7 % 19-41 [facility] Blood monocytes/100 leukocyt esOrdered By: Dr. Cortez on 01-02-2023 Monocytes/100 WBC (Bld) 9.9 % 0-10 [facility] Blood platelet mean volumeOr dered By: Dr. Cortez on 01-02-2023 Platelet mean volume (Bld) [Entitic vol] 9.9 fL 6.2-12.0 [facility] Determination of erythrocyte mean corpuscular volume (MCV)Ordered By: Dr. Cortez on 01-02-2023 MCV (RBC) [Entitic vol] 96.9 fL 80-94 [facility] Hematocrit Auto (Bld) [Volum e fraction]Ordered By: Dr. Cortez on 01-02-2023 Hematocrit (Bld) [Volume fraction] 43.9 % 40-54 [facility] Laboratory - Chemistry and C hemistry - challengeOrdered By: Dr. Cortez on 01-02-2023 ALP [Catalytic activity/Vol] 75 U/L 45-117 [facility] ALT [Catalytic activity/Vol] 42 U/L 16-61 [facility] CO2 [Moles/Vol] 25.0 mmol/L 21.0-32.0 [facility] Globulin (S) [Mass/Vol] 3.5 g/dL 2.2-4.2 [facility] Urea nitrogen/Creatinine [Mass ratio] 17.6 mg/mg 10-20 [facility] Laboratory - Hematology and Cell countsOrdered By: Dr. Cortez on 01-02-2023 Erythrocyte distribution width (RBC) [Entitic vol] 47.1 fL 35.1-43.9 [facility] Erythrocyte distribution width (RBC) [Ratio] 13.2 % 11.6-14.6 [facility] Immature granulocytes/100 WBC (Bld) 0.400 % 0.0-0.9 [facility] Comment on above: IG% - Immature Granu locytes (promyelocytes, myelocytes and metamyelocytes) > 1% indicates that a LEFT SHIFT is Present. MCH (RBC) [Entitic mass] 31.3 pg 27.0-32.0 [facility] Nucleated RBC/100 WBC (Bld) [Ratio] 0 % 0-5 [facility] MCHC Auto (RBC) [Mass/Vol]Or dered By: Dr. Cortez on 01-02-2023 MCHC (RBC) [Mass/Vol] 32.3 g/dL 32-36 [facility] No Panel InformationOrdered By: Dr. Cortez on 01-02-2023 Estimated GFR (MDRD) Amer 89 mL/min >60 [facility] Comment on above: GFR Calc Estimated GFR (MDRD) Non-Af Amer 74 mL/min >60 [facility] Comment on above: Non- GFR Calc Prostate Specific Antigen Total 5.80 ng/mL 0.0-4.0 [facility] Comment on above: This test was perfor med using the TPSA assay method for the[facility] system. Values obtained with differentassay methods cannot be used interchangably.When changing PSA assays in the course of monitoring apatient, additional sequential testing should be carriedout to confirm baseline values. Thyroid Stimulating Hormone (TSH) 1.52 uIU/mL 0.358-3.74 [facility] Platelets bldOrdered By: Dr. Cortez on 01-02-2023 Platelets (Bld) [#/Vol] 222 10*3/uL 150-450 [facility] Serum or plasma albumin ana laura urement (mass/volume)Ordered By: Dr. Cortez on 01-02-2023 Albumin [Mass/Vol] 4.0 g/dL 3.2-5.0 [facility] Serum or plasma albumin/glob ulin mass ratioOrdered By: Dr. Cortez on 01-02-2023 Albumin/Globulin [Mass ratio] 1.1 {ratio} 0.9-2.4 [facility] Serum or plasma calcium ana laura urement (mass/volume)Ordered By: Dr. Cortez on 01-02-2023 Calcium [Mass/Vol] 9.1 mg/dL 8.5-10.1 [facility] Serum or plasma cholesterol in HDL measurement (mass/volume)Ordered By: Dr. Cortez on 01-02-2023 Cholesterol in HDL [Mass/Vol] 47 mg/dL >40 [facility] Comment on above: The drugs N-Acetylcy steine and Metamizole may falsely depress this assay. Reference Range HDL <40 mg/dL Low HDL Cholesterol HDL >or= 60 mg/dL High HDL Cholesterol Serum or plasma cholesterol in VLDL measurement (mass/volume)Ordered By: Dr. Cortez on 01-02-2023 Cholesterol in VLDL [Mass/Vol] 23 mg/dL 5-40 [facility] Serum or plasma creatinine m easurement (mass/volume)Ordered By: Dr. Cortez on 01-02-2023 Creatinine [Mass/Vol] 1.02 mg/dL 0.70-1.30 [facility] Comment on above: The validity of the calculated GFR & GFRAA in patients over 70 years has not been determined. Clinical correlation is essential. Serum or plasma low density lipoprotein (LDL) cholesterol measurement (mass/volume)Ordered By: Dr. Cortez on 01-02-2023 Cholesterol in LDL [Mass/Vol] 63 mg/dL 0-130 [facility] Serum or plasma urea nitroge n measurement (mass/volume)Ordered By: Dr. Cortez on 01-02-2023 Urea nitrogen [Mass/Vol] 18 mg/dL 7-18 [facility] Thin prep Papanicolaou smear with manual screeningOrdered By: Dr. Cortez on 01-02-2023 Thin prep Papanicolaou smear with manual screening 35 U/L 15-37 [facility] Thin prep Papanicolaou smear with manual screening 7 5-15 [facility] CNOVon 10-06-2022 CNOV Office Visit (AGCARDPOB) GEORGE MCCLAIN ([id number]) 1935 M Date Time Provider Department 10/06/22 10:20 AM GEORGE GALLOWAY During your visit today, we recorded the following information about you: Pulse Blood pressure Weight Height 66/minute 166/63 79.4 kg 1.727 m George Galloway MD 10/06/2022 8:09 PM Signed PRIMARY CARE PHYSICIAN: Bashir Cortez (Ruben) [address] [place] [id number] REFERRING PHYSICIAN: Bashir Marin) [address] [place] [id number] Patient Care Team: Bashir Cortez MD as PCP - General (Family Medicine) Albert Mojica as Specialty Field Technical Support Consultant (Cardiology) CHIEF COMPLAINT: Evaluation of arrhythmia HISTORY OF PRESENT ILLNESS: Mr. Mcclain is a 86 year old male who presents today for follow-up evaluation after hospital discharge in July 2022. He has a history of heart disease, with CAD and aortic stenosis, s/p CABG and mechanical AVR in 2000. He has a long history of atrial fibrillation, previously underwent catheter ablation (? [facility]). Over time the atrial fibrillation recurred and became permanent. He was admitted to [facility] in late June 2022, had fallen and was found to have brain bleeding. This fortunately did not require surgery. He was found at that time to have slow ventricular response to the atrial fibrillation. Cardiology recommended outpatient cardiac monitoring to evaluate the bradycardia, at that time a pacemaker was not considered to be necessary. Since hospital discharge, Mr. Mcclain states he has felt well. He is very active, works out daily, walks on a treadmill and also uses weights for strength training. He is not limited in his physical activities. He has not been experiencing severe lightheadedness, near-syncope or syncope. I have confirmed and edited as necessary, the PFSH and ROS obtained by others. PAST MEDICAL HISTORY Diagnosis Date Aortic valve disorders At risk for stroke Cervicalgia Coronary atherosclerosis Dermatophytosis of nail Diverticulosis of colon (without mention of hemorrhage) Essential hypertension, benign Hemorrhage of rectum and anus Lesion of plantar nerve Lumbago Nonallopathic lesion of cervical region, not elsewhere classified Nonspecific elevation of levels of transaminase or lactic acid dehydrogenase (LDH) Obesity, unspecified Osteoarthrosis, unspecified whether generalized or localized, other specified sites Pure hyperglyceridemia Unspecified hyperplasia of prostate PAST SURGICAL HISTORY Procedure Laterality Date CHOLECYSTECTOMY COLONOSCOPY FLX DX W/COLLJ SPEC WHEN PFRMD 05/2009 Colonoscopy COLONOSCOPY FLX DX W/COLLJ SPEC WHEN PFRMD 05/01/2011 Colonoscopy PAST SURGICAL HISTORY OF 04/2001 aortic valve replacement surgery- mechanical - [facility] - Dr. Esteban TONSILLECTOMY PRIMARY/SECONDARY Tonsillectomy and adeniodectomy SOCIAL HISTORY Social History Tobacco Use Smoking status: Former Smokeless tobacco: Never Substance Use Topics Alcohol use: Yes Alcohol/week: 5.0 standard drinks Types: 1 Glasses of Wine (5oz), 1 Cans of Beer (12oz) per week Drug use: Never FAMILY HISTORY Problem Relation Age of Onset Alzheimer's Disease Father other (Other) Mother possible brain tumor None Brother No Known Problems Son No Known Problems Daughter ALLERGIES: ALLERGIES No Known Allergies MEDICATIONS: Ciclopirox (LOPROX) 8 % solution APPLY TOPICALLY TO AFFECTED TOENAIL(S) ONCE DAILY. CLEANSE TOENAILS ONCE WEEKLY WITH RUBBING ALCOHOL. triamcinolone acetonide (KENALOG) 0.1 % cream APPLY TO ITCHY AREAS ON BODY ONCE DAILY NEEDED vit C/E/Zn/coppr/lutein/z eaxan (PRESERVISION AREDS-2 ORAL) Take 1 capsule by mouth once daily. fluticasone (FLONASE) 50 mcg/actuation nasal spray 2 sprays in each nostril daily x1 week then 1-2 sprays in each nostril daily. (use smallest dose possible for symptom control after week 1). atorvastatin (LIPITOR) 40 mg tablet 1 tablet by ORAL/FEEDING TUBE route daily at bedtime. levETIRAcetam (KEPPRA) 750 mg tablet 1 tablet by ORAL/FEEDING TUBE route twice daily. allopurinol (ZYLOPRIM) 100 mg tablet Take 100 mg by mouth once daily. furosemide (LASIX) 40 mg tablet Take 80 mg by mouth twice daily. cholecalciferol, vitamin D3, 250 mcg (10,000 unit) tab Take 1 tablet by mouth once daily. escitalopram oxalate (LEXAPRO) 20 mg tablet Take 20 mg by mouth once daily. potassium chloride (KCL-20 ORAL) Take 1 tablet by mouth once daily. magnesium oxide,aspartate,citr 400 mg magnesium cap Take 1 capsule by mouth once daily. losartan (COZAAR) 50 mg tablet Take 50 mg by mouth once daily. warfarin (COUMADIN) 4 mg tablet Take 4-6 mg by mouth daily as directed. 4mg every day except for 6mg on the 7th day as of 09.03.2022 REVIEW OF SYSTEMS: (more content not included)... Normal [facility] CNOVon 09-03-2022 CNOV Office Visit (NEAGCLM) GEORGE MCCLAIN ([id number]) 1935 M Date Time Provider Department 09/03/22 1:30 PM SWETA JENKINS NEAGCLM During your visit today, we recorded the following information about you: Pulse Blood pressure Weight Height 67/minute 117/59 79 kg 1.727 m Sweta Jenkins APRN.CNP 09/03/2022 1:54 PM Signed NEUROSURGERY FOLLOW UP OFFICE NOTE Sweta Jenkins APRN.CNP Date of visit: September 03, 2022 Patient Name: Mr.Robert Mcclain Date of : 1935 Current Age: [age] year old Sex: male MRN/E# [id number] Last Office Visit: 08/06/2022 Chief Complaint: Patient presents with: Established Patient The patient presents for a follow up with imaging (CT B) for evaluation. This is an 86-year-old male with a PMHx of A. fib, AV heart valve replacement -on Coumadin, HLD, CAD, CABG who was seen in consult on 07/22/2022 at [facility] after being transferred from an outside hospital. He had been seen in an outside ED with strokelike symptoms after a fall striking his head. The patient reported that he was getting up from his chair when he felt dizzy which caused him to fall. He then developed a left facial droop and slurred speech. Work-up was completed and showed a small subarachnoid hemorrhage and subdural hematoma without significant mass-effect. CTA was completed and was negative. Once transferred he was evaluated and imaging was reviewed. This showed a stable small intracranial bleed along the left side of the falx. Neurologically he was intact on exam without focal deficit. Blood thinning medications were placed on hold and he was given a short course of Keppra for seizure prophylaxis. Repeat imaging remained stable and he was cleared to resume DVT prophylaxis given his history of aortic valve and risk for thromboembolic event. He was advised that he may resume his normal anticoagulation medications on 07/29/2022. Recommendation was to follow-up in [address] brain. Seen on 08/06/2022 and reported that he was overall doing well. He denied any significant headache, visual changes or seizure activity. He and his both felt he had intermittent episodes of mild speech slurring but it was gradually improving. His gait was not back to normal so he was utilizing a walker for assist. Prior to his visit he had been seen by his construction plumber who adjusted his medications as it was thought that bradycardia was the cause of his recent fall. Neurologically he was intact on exam without focal deficit. CT brain was reviewed along with . This demonstrated interval resolution of the left interhemispheric subarachnoid hemorrhage without evidence of any acute intracranial bleeding. Recommendation was to follow-up in [address] brain prompting his visit today. Since last visit he states he is overall doing well and denies any new neurological complaints or concerns. He does report and his concurs, being very tired and sleeping more than usual. Otherwise no complaints. He presents for image review, evaluation and plan of care. Smoker: Former Diabetic: No Anticoagulants / Antiplatelets: Coumadin Occupation: Retired Symptoms: Fatigue PREVIOUS CONSERVATIVE TREATMENTS: [facility] PREVIOUS SURGERY: None PAIN EVALUATION No data found in the last 1 encounters. PAST MEDICAL HISTORY Diagnosis Date Aortic valve disorders Cervicalgia Coronary atherosclerosis Dermatophytosis of nail Diverticulosis of colon (without mention of hemorrhage) Essential hypertension, benign Hemorrhage of rectum and anus Lesion of plantar nerve Lumbago Nonallopathic lesion of cervical region, not elsewhere classified Nonspecific elevation of levels of transaminase or lactic acid dehydrogenase (LDH) Obesity, unspecified Osteoarthrosis, unspecified whether generalized or localized, other specified sites Pure hyperglyceridemia Unspecified hyperplasia of prostate PAST SURGICAL HISTORY Procedure Laterality Date CHOLECYSTECTOMY COLONOSCOPY FLX DX W/COLLJ SPEC WHEN PFRMD 05/2009 Colonoscopy COLONOSCOPY FLX DX W/COLLJ SPEC WHEN PFRMD 05/01/2011 Colonoscopy PAST SURGICAL HISTORY OF 04/2001 aortic valve replacement surgery- mechanical - [facility] - Dr. Esteban TONSILLECTOMY PRIMARY/SECONDARY Tonsillectomy and adeniodectomy FAMILY HISTORY Problem Relation Age of Onset Alzheimer's Disease Father other (Other) Mother possible brain tumor None Brother No Known Problems Son No Known Problems Daughter ALLERGIES No Known Allergies Current Outpatient Medications Medication Sig Dispense Refill triamcinolone acetonide (KENALOG) 0.1 % cream APPLY TO ITCHY AREAS ON BODY ONCE DAILY NEEDED vit C/E/Zn/coppr/lutein/z eaxan (PRESERVISION AREDS-2 ORAL) Take 1 capsule by mouth once daily. fluticasone (FLONASE) 50 mcg/actuation nasal spray 2 sprays in each nostril rohan (more content not included)... Normal [facility] CT BRAIN WO IVCONon 09-03-19 CT BRAIN WO IVCON * * *Final Report* * * DATE OF EXAM: Sep 03 2022 1:26PM A1C 0504 - CT BRAIN WO IVCON / PROCEDURE REASON: multiple diagnoses * * * * Physician Interpretation * * * * EXAMINATION: CT BRAIN WO IVCON CLINICAL HISTORY: Intracranial hemorrhage. Follow-up TECHNIQUE: Serial axial images without IV contrast were obtained from the vertex to the foramen magnum. MQ: CTBWO_3 CT Radiation dose: Integrated Dose-Length Product (DLP) for this visit = 794.52 mGy*cm CT Dose Reduction Employed: No dose reduction techniques were required COMPARISON: 08/06/2022 RESULT: Post-operative change: None. Acute change: No evidence of an acute infarct or other acute parenchymal process. Hemorrhage: No acute intracranial hemorrhage. No evidence of residual subdural hematoma associated with the interhemispheric falx. Mass Lesion / Mass Effect: There is no evidence of an intracranial mass or extraaxial fluid collection. No significant mass effect. Chronic change: Patchy foci of low attenuation coefficient are present within the supratentorial white matter which is a nonspecific finding but likely represents moderate microvascular ischemia. Parenchyma: There is mild generalized volume loss. The brain parenchyma is otherwise within normal limits for age. Ventricles: Ventricular enlargement concordant with the degree of parenchymal volume loss. Paranasal sinuses and skull base: The visualized paranasal sinuses are grossly clear. The skull base and imaged soft tissues are unremarkable. Telecommunications Project Manager (topogram) images: No additional significant findings IMPRESSION: No acute intracranial process. No evidence of residual subdural hematoma associated with the interhemispheric falx. No new hemorrhage in the interval. Atrophy and chronic microvascular ischemic changes. Stenographic Court Reporter: PSCB Transcribe Date/Time: Sep 04 2022 2:28P Dictated by : ZAKI ANN MD This examination was interpreted and the report reviewed and electronically signed by: ZAKI ANN MD on Sep 04 2022 2:31PM EST [id number] N Normal [facility] CNOVon 08-11-2022 CNOV Office Visit (NTBIBA ) GEORGE MCCLAIN ([id number]) 1935 M Date Time Provider Department 08/11/22 3:00 PM DENICE JANE During your visit today, we recorded the following information about you: Denice Jane, PhD 08/13/2022 11:54 AM Signed [facility] Department of Neurology Multidisciplinary Traumatic Brain Injury Clinic Neuropsychological Evaluation Report PATIENT NAME: George Mcclain DATE OF : 1935 DATE OF SERVICE: 08/11/2022 REFERRAL SOURCE: Sweta Jenkins APRN, CARE MANAGEMENT COORDINATOR This neuropsychological assessment is part of a multidisciplinary evaluation conducted in the [facility] Neurological [facility] [place]. The assessment consisted of a brief interview with Saleem and his , Angela Collazo, neurobehavioral examination, and administration of standardized neuropsychological assessments. This report is intended to be considered as only one part of the comprehensive examination. The results will be communicated to the referring physician via shared electronic medical record and in a consensus conference meeting. Of note, the current evaluation took place during the COVID- pandemic and thus several safety precautions were in place, including use of a facemask, which can limit the evaluation. George is an 86 year old male who was referred for a neuropsychological evaluation to evaluate cognitive sequelae from a recent head injury. George sustained a fall at home on 07/21/2022 when he became dizzy getting up from his chair and subsequently fell and struck his head. He initially presented to the emergency department at [facility] with stroke like symptoms and was transferred to [facility]. MRI of the brain indicated a stable mild subarachnoid hemorrhage in the left interhemispheric fissure. He was subsequently admitted to the hospital and discharged home on 07/24/2022. Injury Description. See medical records for full review. Head injury parameters obtained from his Epic chart are described below: Duration of Loss of Consciousness: none Post-traumatic amnesia: no recall of fall, first recall after is of transport to [facility] [place] Coma Scale: 15 Neuroimaging findings: stable mild subarachnoid hemorrhage in the left interhemispheric fissure Residual physical symptoms: mild headaches, slurred speech, gait imbalance CURRENT COGNITIVE CONCERNS: Specific concerns include changes in memory although his noted she is seeing consistent improvement in cognitive abilities since the initial injury. She reported that she has also noted some personality changes, sharing George is somewhat short tempered at times. Initiation of tasks is reported to be unchanged, with George sharing Angela Collazo instructs him daily in what he needs to do. Activities of Daily Living: Hygiene: reports independent Crocodile Farmer: will assist but limited by vision Medications: assists with management due to vision Finances: assists due to vision impairments Driving: recently resumed driving in local areas during daytime only Work/Volunteer Work: retired Engagement in Leisure Pursuits: reported has resumed prior activity level MEDICAL HISTORY: See records for full review. Relevant diagnoses include sensorineural hearing loss bilaterally and macular degeneration. George also has a history of heart valve replacement on 05/04/2001, hypertension, atrial fib and hyperlipidemia. George denied any history of head injury with loss of consciousness, stroke, or seizure. There is no prior history of cognitive concerns. Review of select systems is notable for: Sensory difficulties: macular degeneration and bilateral hearing loss Motor Changes: balance concerns Chronic pain: headaches Sleep: no concerns Daytime fatigue: no concerns Substance use: denied Legal history: denied Recent Neurological workup 08/06/2022 revealed: Neurological Exam: gait difficulty, speech concerns, headaches, GCS 15/15 Brain MRI/EEG: interval resolution of left interhemispheric fissure subarachnoid hemorrhage Medication List: see chart PSYCHIATRIC HISTORY: George denied any prior engagement in psychiatric treatment. He currently denied any mood concerns. As previously noted his indicated that George can be short tempered at times but this is improving weekly. George denied any auditory/visual hallucinations or suicidal ideation. PSYCHOSOCIAL HISTORY: Developmental history: Milestones were met within expected timeframes Education: Completed Bachelor's degree with no history of attention/learning concerns Occupation: Retired. 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 Family: Lives with his in their home of 30 years. Shared that they do have a one floor set up. BEHAVI (more content not included)... Normal [facility] CNOV Office Visit (NTBIBA ) GEORGE MCCLAIN ([id number]) 1935 M Date Time Provider Department 08/11/22 1:00 PM JOSE CORONA During your visit today, we recorded the following information about you: Pulse Respiration Blood pressure Weight 83/minute 16/minute 132/80 79.4 kg Height 1.727 m Jose Corona MD 08/11/2022 1:54 PM Signed IMPRESSION: George Mcclain is a 86 year old male presents for mild TBI with SAH/SDH after GLF at home. Discharged home without HHC. Initial deficits with concentration, memory, and balance have nearly all resolved since original injury. (S06.9X9S) Traumatic brain injury with loss of consciousness, sequela (HCC) (primary encounter diagnosis) (I60.9) SAH (subarachnoid hemorrhage) (HCC) ACTIVE PROBLEM LIST Nonallopathic Lesion of Cervical Region, Not Elsewhere Classified Osteoarthrosis, Unspecified Whether Generalized Or Localized, Other Specified Sites Lumbago Diverticulosis of Colon (Without Mention of Hemorrhage) Cervicalgia Nonspecific Elevation of Levels of Transaminase Or Lactic Acid Dehydrogenase (Ldh) Aortic Valve Disorders Dermatophytosis of Nail Pure Hyperglyceridemia Htn (Hypertension) Obesity, Unspecified Hemorrhage of Rectum and Anus Sdh (Subdural Hematoma) Subarachnoid Hemorrhage Following Injury, No Loss of Consciousness (Hcc) Facial Droop Dysarthria Fall Current Use of Correction Anticoagulation Atrial Fibrillation (Hcc) Qt Prolongation Bradycardia Urinary Retention PLAN: Referral for PT and TEST DEVELOPMENT ENGINEER. Pt can also pursue gym exercise for ambulation. Good balance today. Follow up as needed Case discussed with Dr. Jane with neuropsychology Office Visit on 08/11/22 CONSULT TO SPEECH THERAPY CONSULT TO PHYSICAL THERAPY SUBJECTIVE: Patient presents with: New Patient Evaluation History of Present Illness: Fall with light headedness prior. Date of TBI: 07/21/2022 Mechanism of Injury: Falls Site of Initial Impact: Back Neurosurgical Interventions: No Loss of Consciousness: No GCS in ER: 15 Initial Evaluation: is initial NIH was 4 for the left facial droop, right-sided ataxia, and dysarthria - Date: 07/21/2022 - Length of Hospitalization: 5 days Acuity of Hospitalization: RNF Acute Neuro-Imaging Findings: Yes Type of Neuro-imaging findings: Subarachnoid Hemorrhage and Subdural Hemorrhage - (Hemorrhage) Was on anticoagulation/antip latelet therapy?: Yes Post Traumatic Amnesia: First Memory After: Ambulance/Helicoptor rides Seizures: No Medication Used for Symptom Management: none Discharge: Home Hospitalization Complications: none Current problematic symptoms: Memory not as sharp, but close - no treatments. Hearing/vision may impact as well. notes and patient doesn't Walking improving with minimal below baseline balance Hospital course: The patient is an 86-year-old male that presented to the hospital on 07/22 after a ground-level fall and was found to have a small subdural hemorrhage. 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 The patient has also been intermittently lightheaded over the past couple of weeks. He also has an extensive history of bradycardia. His initial NIH was 4 for the left facial droop, right-sided ataxia, and dysarthria. His Coumadin was reversed at [place]. The patient's blood pressure has been well controlled in the neuros NS ICU with minimal interventions. He has been noted to be orthostatic on ambulation. Cardiology and electrophysiology were consulted and did not recommend any acute interventions at this time. He can wear an event monitor and hold his Norvasc. The patient was restarted on DVT prophylaxis. He was also given Keppra for seizure prophylaxis. MRI revealed mild subarachnoid hemorrhage. Recent labs/Imaging related to complaint: MRI Brain IMPRESSION: Overall stable mild subarachnoid hemorrhage in the left interhemispheric fissure. No other acute intracranial findings. CT Brain 08/06/22 IMPRESSION: 1. Interval resolution of previously described left interhemispheric subarachnoid hemorrhage. 2. No CT evidence of acute cortical infarct. No current CT evidence of acute intracranial hemorrhage. 3. Chronic changes, as detailed above. Medications Reviewed atorvastatin (LIPITOR) 40 mg tablet 1 tablet by ORAL/FEEDING TUBE route daily at bedtime. levETIRAcetam (KEPPRA) 750 mg tablet 1 tablet by ORAL/FEEDING TUBE route twice daily. allopurinol (ZYLOPRIM) 100 mg tablet Take 100 mg by mouth once daily. furosemide (LASIX) 40 mg tablet Take 80 mg by mouth twice daily. cholecalciferol, vitamin D3, 250 mcg (10,000 unit) tab Take 1 tablet by mouth once daily. escitalopram oxalate (LEXAPRO) 20 mg tablet Take 20 mg by mouth once daily. potassium chloride (KCL-20 ORAL) Take 1 tablet by mouth (more content not included)... Normal [facility] CNOVon 08-06-2022 CNOV Office Visit (NEAGCLM) GEORGE MCCLAIN ([id number]) 1935 M Date Time Provider Department 08/06/22 2:00 PM SWETA JENKINS NEAGCLM During your visit today, we recorded the following information about you: Pulse Blood pressure Weight Height 61/minute 152/66 78.5 kg 1.702 m Sweta Jenkins APRN.CNP 08/06/2022 3:22 PM Signed NEUROSURGERY FOLLOW UP OFFICE NOTE Sweta Jenkins APRN.CNP Date of visit: August 06, 2022 Patient Name: Mr.Robert Mcclain Date of : 1935 Current Age: [age] year old Sex: male MRN/E# [id number] Last Office Visit: Hospital follow-up Chief Complaint: Patient presents with: Established Patient: Hospital discharge The patient presents for a follow up with imaging (CT B) for evaluation. This is an 86-year-old male with a PMHx of A. fib, AV heart valve replacement, HLD, CAD, CABG who was seen in consult on 07/22/2022 at [facility] after being transferred from an outside hospital. He had been seen in an outside ED with strokelike symptoms after a fall. The patient reported that he was getting up from his chair when he felt dizzy and fell striking his head. After the fall he developed a left facial droop and slurred speech. Work-up was completed and showed a small subarachnoid hemorrhage and subdural hematoma without significant mass-effect. CTA was completed and was negative. Once transferred he was evaluated and imaging was reviewed. This showed a stable small intracranial bleed along the left side of the falx. Neurologically he was intact on exam without focal deficit. Blood thinning medications were placed on hold and he was given a short course of Keppra for seizure prophylaxis. Repeat imaging remained stable and he was cleared to resume DVT prophylaxis given his history of aortic valve and risk for thromboembolic event. He was advised that he may resume his normal anticoagulation medications on 07/29/2022. Recommendation was to follow-up in [address] brain prompting his visit today. Since discharge he states he is overall doing well. He denies any significant headache, visual changes or seizure activity. He and his both feel he has episodes of mild speech slurring but this is much improved. He feels as if his gait is not back to normal so he is utilizing a walker for assist. Since discharge he has been seen by his construction plumber who has adjusted his medications as it was thought that bradycardia was the cause of his recent fall. He resumed Coumadin on 07/29/2022 as instructed. He presents for image review, evaluation and plan of care. Smoker: Former Diabetic: No Anticoagulants / Antiplatelets: Coumadin Occupation: Retired Symptoms: Mild headaches, mild speech slurring at times, gait imbalance. PREVIOUS CONSERVATIVE TREATMENTS: None PREVIOUS SURGERY: None PAIN EVALUATION 08/06/2022 1401 Pain Level: 2 PAST MEDICAL HISTORY Diagnosis Date Aortic valve disorders Cervicalgia Coronary atherosclerosis Dermatophytosis of nail Diverticulosis of colon (without mention of hemorrhage) Essential hypertension, benign Hemorrhage of rectum and anus Lesion of plantar nerve Lumbago Nonallopathic lesion of cervical region, not elsewhere classified Nonspecific elevation of levels of transaminase or lactic acid dehydrogenase (LDH) Obesity, unspecified Osteoarthrosis, unspecified whether generalized or localized, other specified sites Pure hyperglyceridemia Unspecified hyperplasia of prostate PAST SURGICAL HISTORY Procedure Laterality Date CHOLECYSTECTOMY COLONOSCOPY FLX DX W/COLLJ SPEC WHEN PFRMD 05/2009 Colonoscopy COLONOSCOPY FLX DX W/COLLJ SPEC WHEN PFRMD 05/01/2011 Colonoscopy PAST SURGICAL HISTORY OF 04/2001 aortic valve replacement surgery- mechanical - [facility] - Dr. Esteban TONSILLECTOMY PRIMARY/SECONDARY Tonsillectomy and adeniodectomy FAMILY HISTORY Problem Relation Age of Onset Alzheimer's Disease Father other (Other) Mother possible brain tumor None Brother No Known Problems Son No Known Problems Daughter ALLERGIES No Known Allergies Current Outpatient Medications Medication Sig Dispense Refill atorvastatin (LIPITOR) 40 mg tablet 1 tablet by ORAL/FEEDING TUBE route daily at bedtime. 30 tablet 0 levETIRAcetam (KEPPRA) 750 mg tablet 1 tablet by ORAL/FEEDING TUBE route twice daily. 60 tablet 0 allopurinol (ZYLOPRIM) 100 mg tablet Take 100 mg by mouth once daily. furosemide (LASIX) 40 mg tablet Take 80 mg by mouth twice daily. cholecalciferol, vitamin D3, 250 mcg (10,000 unit) tab Take 1 tablet by mouth once daily. vit C-E-zinc jp-xivv-fry-zeax (ICAPS AREDS2) 250 mg-200 unit -12.5 mg-1 mg cap Take 1 capsule by mouth once daily. escitalopram oxalate (LEXAPRO) 20 mg tablet Take 20 mg by mouth once daily. potassium chloride (KCL-20 ORAL) Take 1 tablet by mouth once daily. magnesium oxide,aspartate,cit (more content not included)... Normal [facility] CT BRAIN WO IVCONon 08-06-20 CT BRAIN WO IVCON * * *Final Report* * * DATE OF EXAM: Aug 06 2022 1:22PM A1C 0504 - CT BRAIN WO IVCON / PROCEDURE REASON: Nontraumatic subdural hemorrhage (HCC) * * * * Physician Interpretation * * * * EXAMINATION: CT BRAIN WO IVCON CLINICAL HISTORY: Nontraumatic subdural hemorrhage. Follow-up. TECHNIQUE: Serial axial images without IV contrast were obtained from the vertex to the foramen magnum. MQ: CTBWO_3 CT Radiation dose: Integrated Dose-Length Product (DLP) for this visit = 794.52 mGy*cm CT Dose Reduction Employed: No dose reduction techniques were required COMPARISON: 07/22/2022. RESULT: Post-operative change: None. Acute change: No evidence of an acute infarct or other acute parenchymal process. Hemorrhage: No evidence of acute intracranial hemorrhage. Interval resolution of previously described left interhemispheric subarachnoid hemorrhage. Mass Lesion / Mass Effect: There is no evidence of an intracranial mass or extraaxial fluid collection. No significant mass effect. Chronic change: Patchy foci of low attenuation coefficient are present within the supratentorial white matter which is a nonspecific finding but likely represents moderate microvascular ischemia. Parenchyma: There is moderate generalized volume loss. Ventricles: Ventricular enlargement concordant with the degree of parenchymal volume loss. Paranasal sinuses and skull base: The visualized paranasal sinuses are grossly clear. The skull base and imaged soft tissues are unremarkable. Telecommunications Project Manager (topogram) images: No additional findings. IMPRESSION: 1. Interval resolution of previously described left interhemispheric subarachnoid hemorrhage. 2. No CT evidence of acute cortical infarct. No current CT evidence of acute intracranial hemorrhage. 3. Chronic changes, as detailed above. Stenographic Court Reporter: PSCJhonathan Transcribe Date/Time: Aug 06 2022 1:59P Dictated by : MARY SCHULTZ MD This examination was interpreted and the report reviewed and electronically signed by: MARY SCHULTZ MD on Aug 06 2022 2:05PM EST [id number] N Normal [facility] Basic metabolic 2000 panelon 07-24-2022 Anion gap [Moles/Vol] 10 mmol/L Normal 9-18 [facility] Comment on above: Order Comment: Speci men Type: BLOOD SPECIMEN Ordering Facility: [facility] Address: [address] [place] [address] Performed By: #### 5 7021-8 #### [facility] CLIA [id number] [address] [place] [address] [place] Calcium [Mass/Vol] 9.0 mg/dL Normal 8.5-10.2 [facility] Comment on above: Order Comment: Speci men Type: BLOOD SPECIMEN Ordering Facility: [facility] Address: [address] [place] [address] Performed By: #### 5 7021-8 #### [facility] CLIA [id number] [address] [place] [address] [place] Chloride [Moles/Vol] 103 mmol/L Normal 97-105 [facility] Comment on above: Order Comment: Speci men Type: BLOOD SPECIMEN Ordering Facility: [facility] Address: [address] [address] Performed By: #### 5 7021-8 #### [facility] CLIA [id number] [address] [place] [address] [place] CO2 [Moles/Vol] 25 mmol/L Normal 22-30 [facility] Comment on above: Order Comment: Speci men Type: BLOOD SPECIMEN Ordering Facility: [facility] Address: [address] [place] [address] Performed By: #### 5 7021-8 #### [facility] CLIA [id number] [address] [place] [facility] Creatinine [Mass/Vol] 0.84 mg/dL Normal 0.73-1.22 [facility] Comment on above: Order Comment: Ramy wu Type: BLOOD SPECIMEN Ordering Facility: [facility] Address: [address] [place] [address] Performed By: #### 5 7021-8 #### [facility] CLIA [id number] [address] ESTIMATED GLOMERULAR FILTRATION RATE 86 mL/min/1.73m??? Normal >=60 [facility] Comment on above: Order Comment: Ramy wu Type: BLOOD SPECIMEN Ordering Facility: [facility] Address: [address] [place] [address] Result Comment: Judith mated Glomerular Filtration Rate (eGFR) is calculated using the 2020 CKD-EPI creatinine equation. This equation utilizes serum creatinine, sex, and age as parameters. The creatinine assay has traceable calibration to isotope dilution-mass spectrometry. Refer to KDIGO guidelines for clinical interpretation. In patients with unstable renal function, e.g. those with acute kidney injury, the eGFR may not accurately reflect actual GFR. Performed By: #### 5 7021-8 #### [facility] CLIA [id number] [address] Glucose [Mass/Vol] 114 mg/dL High 74-99 [facility] Comment on above: Order Comment: Ramy wu Type: BLOOD SPECIMEN Ordering Facility: [facility] Address: [address] [place] [address] Result Comment: The [place] Diabetes Association (ADA) provides guidance for cutoff values for fasting glucose and random glucose. The ADA defines fasting as no caloric intake for at least 8 hours. Fasting plasma glucose results between 100 to 125 mg/dL indicate increased risk for diabetes (prediabetes). Fasting plasma glucose results greater than or equal to 126 mg/dL meet the criteria for diagnosis of diabetes. In the absence of unequivocal hyperglycemia, results should be confirmed by repeat testing. In a patient with classic symptoms of hyperglycemia or hyperglycemic crisis, random plasma glucose results greater than or equal to 200 mg/dL meet the criteria for diagnosis of diabetes. Reference: Standards of Medical Care in Diabetes 2016, [place] Diabetes Association. Diabetes Care. 2016.39(Suppl 1). Performed By: #### 5 7021-8 #### [facility] CLIA [id number] [address] Potassium [Moles/Vol] 4.0 mmol/L Normal 3.7-5.1 [facility] Comment on above: Order Comment: Speci men Type: BLOOD SPECIMEN Ordering Facility: [facility] Address: [address] [address] Performed By: #### 5 7021-8 #### [facility] CLIA [id number] [address] Sodium [Moles/Vol] 138 mmol/L Normal 136-144 [facility] Comment on above: Order Comment: Speci men Type: BLOOD SPECIMEN Ordering Facility: [facility] Address: [address] [address] Performed By: #### 5 7021-8 #### [facility] CLIA [id number] [address] Urea nitrogen [Mass/Vol] 14 mg/dL Normal 9-24 [facility] Comment on above: Order Comment: Speci men Type: BLOOD SPECIMEN Ordering Facility: [facility] Address: [address] [address] Performed By: #### 5 7021-8 #### [facility] CLIA [id number] [address] OF [facility] CBC W Auto Differential pane l (Bld)on 07-24-2022 Basophils (Bld) [#/Vol] 0.07 10*3/uL Normal <0.11 [facility] Comment on above: Order Comment: Speci men Type: BLOOD SPECIMEN Ordering Facility: [facility] Address: [address] [address] Performed By: #### 5 7021-8 #### [facility] CLIA [id number] [address] Basophils/100 WBC (Bld) 0.7 % Normal A [facility] Comment on above: Order Comment: Speci men Type: BLOOD SPECIMEN Ordering Facility: [facility] Address: [address] [address] Performed By: #### 5 7021-8 #### [facility] CLIA [id number] [address] [place] Differential cell count method Nom (Bld) Auto Normal [facility] Comment on above: Order Comment: Speci men Type: BLOOD SPECIMEN Ordering Facility: [facility] Address: [address] [place] [address] Performed By: #### 5 7021-8 #### [facility] [facility] CLIA [id number] [address] Eosinophils (Bld) [#/Vol] 0.17 10*3/uL Normal <0.46 [facility] Comment on above: Order Comment: Speci men Type: BLOOD SPECIMEN Ordering Facility: [facility] Address: [address] [address] Performed By: #### 5 7021-8 #### [facility] CLIA [id number] [address] Eosinophils/100 WBC (Bld) 1.7 % Normal [facility] Comment on above: Order Comment: Speci men Type: BLOOD SPECIMEN Ordering Facility: [facility] Address: [address] [address] Performed By: #### 5 7021-8 #### [facility] CLIA [id number] [address] Erythrocyte distribution width (RBC) [Ratio] 14.2 % Normal 11.5-15.0 [facility] Comment on above: Order Comment: Speci men Type: BLOOD SPECIMEN Ordering Facility: [facility] Address: [address] [address] Performed By: #### 5 7021-8 #### [facility] CLIA [id number] [address] [facility] Hematocrit (Bld) [Volume fraction] 38.0 % Low 39.0-51.0 [facility] Comment on above: Order Comment: Speci men Type: BLOOD SPECIMEN Ordering Facility: [facility] Address: [address] [place] [address] Performed By: #### 5 7021-8 #### [facility] CLIA [id number] [address] [facility] Hemoglobin (Bld) [Mass/Vol] 13.0 g/dL Normal 13.0-17. 0 [facility] Comment on above: Order Comment: Speci men Type: BLOOD SPECIMEN Ordering Facility: [facility] Address: [address] [place] [address] Performed By: #### 5 7021-8 #### [facility] CLIA [id number] [address] Immature granulocytes (Bld) [#/Vol] 0.08 10*3/uL Normal <0.10 [facility] Comment on above: Order Comment: Speci men Type: BLOOD SPECIMEN Ordering Facility: [facility] Address: [address] [place] [address] Performed By: #### 5 7021-8 #### [facility] CLIA [id number] [address] Immature granulocytes/100 WBC (Bld) 0.8 % Normal [facility] Comment on above: Order Comment: Speci men Type: BLOOD SPECIMEN Ordering Facility: [facility] Address: [address] [place] [address] Performed By: #### 5 7021-8 #### [facility] CLIA [id number] [address] [place] Lymphocytes (Bld) [#/Vol] 2.01 10*3/uL Normal 1.00-4.0 0 [facility] Comment on above: Order Comment: Speci men Type: BLOOD SPECIMEN Ordering Facility: [facility] Address: [address] [address] Performed By: #### 5 7021-8 #### [facility] CLIA [id number] [address] Lymphocytes/100 WBC (Bld) 20.6 % Normal [facility] Comment on above: Order Comment: Speci men Type: BLOOD SPECIMEN Ordering Facility: [facility] Address: [address] [place] [address] Performed By: #### 5 7021-8 #### [facility] CLIA [id number] [address] MCH (RBC) [Entitic mass] 31.6 pg Normal 26.0-34.0 [facility] Comment on above: Order Comment: Speci men Type: BLOOD SPECIMEN Ordering Facility: [facility] Address: [address] [place] [address] Performed By: #### 5 7021-8 #### [facility] CLIA [id number] [address] MCHC (RBC) [Mass/Vol] 34.2 g/dL Normal 30.5-36.0 [facility] Comment on above: Order Comment: Speci men Type: BLOOD SPECIMEN Ordering Facility: [facility] Address: [address] [place] [address] Performed By: #### 5 7021-8 #### [facility] CLIA [id number] [address] MCV (RBC) [Entitic vol] 92.2 fL Normal 80.0-100.0 [facility] Comment on above: Order Comment: Speci men Type: BLOOD SPECIMEN Ordering Facility: [facility] Address: [address] [place] [address] Performed By: #### 5 7021-8 #### [facility] CLIA [id number] [address] Monocytes (Bld) [#/Vol] 1.05 10*3/uL High <0.87 [facility] Comment on above: Order Comment: Speci men Type: BLOOD SPECIMEN Ordering Facility: [facility] Address: [address] [place] [address] Performed By: #### 5 7021-8 #### [facility] CLIA [id number] [address] Monocytes/100 WBC (Bld) 10.8 % Normal [facility] Comment on above: Order Comment: Speci men Type: BLOOD SPECIMEN Ordering Facility: [facility] Address: [address] [address] Performed By: #### 5 7021-8 #### [facility] CLIA [id number] [address] [place] Neutrophils (Bld) [#/Vol] 6.37 10*3/uL Normal 1.45-7.5 0 [facility] Comment on above: Order Comment: Speci men Type: BLOOD SPECIMEN Ordering Facility: [facility] Address: [address] [place] [address] Performed By: #### 5 7021-8 #### [facility] CLIA [id number] [address] Neutrophils/100 WBC (Bld) 65.4 % Normal [facility] Comment on above: Order Comment: Speci men Type: BLOOD SPECIMEN Ordering Facility: [facility] Address: [address] [place] [address] Performed By: #### 5 7021-8 #### [facility] CLIA [id number] [address] [place] Nucleated RBC (Bld) [#/Vol] 10*3/uL Normal <0.01 [facility] Comment on above: Order Comment: Speci men Type: BLOOD SPECIMEN Ordering Facility: [facility] Address: [address] [place] [address] Performed By: #### 5 7021-8 #### [facility] CLIA [id number] [address] [place] Nucleated RBC/100 WBC (Bld) [Ratio] 0.0 /100 WBC Normal [facility] Comment on above: Order Comment: Speci men Type: BLOOD SPECIMEN Ordering Facility: [facility] Address: [address] [place] [address] Performed By: #### 5 7021-8 #### [facility] CLIA [id number] [address] [place] Platelet mean volume (Bld) [Entitic vol] 9.6 fL Normal 9.0-12.7 [facility] Comment on above: Order Comment: Speci men Type: BLOOD SPECIMEN Ordering Facility: [facility] Address: [address] [place] [address] Performed By: #### 5 7021-8 #### [facility] CLIA [id number] [address] [place] Platelets (Bld) [#/Vol] 185 10*3/uL Normal 150-400 [facility] Comment on above: Order Comment: Speci men Type: BLOOD SPECIMEN Ordering Facility: [facility] Address: [address] [place] [address] Performed By: #### 5 7021-8 #### [facility] CLIA [id number] [address] [place] RBC (Bld) [#/Vol] 4.12 10*6/uL Low 4.20-6.00 [facility] Comment on above: Order Comment: Speci men Type: BLOOD SPECIMEN Ordering Facility: [facility] Address: [address] [address] Performed By: #### 5 7021-8 #### [facility] CLIA [id number] [address] [place] WBC (Bld) [#/Vol] 9.75 10*3/uL Normal 3.70-11.00 [facility] Comment on above: Order Comment: Speci men Type: BLOOD SPECIMEN Ordering Facility: [facility] Address: [address] [place] [address] Performed By: #### 5 7021-8 #### [facility] [id number] [address] [id number] [facility] CNDSon 07-24-2022 CNDS HNO ID: [id number] Author: Zaki Mendez MD Service: Hospital Medicine Author Type: Physician Type: Discharge Summary Filed: 07/24/2022 1:21 PM Note Text: DISCHARGE SUMMARY PATIENT NAME: George Mcclain ADMISSION DATE: 07/21/2022 DISCHARGE DATE: 07/24/2022 Attending Physician: Allison Lopez DO Reason for Hospitalization: SDH Diagnosis: Principal Problem: SDH (subdural hematoma) POA: Yes Active Problems: HTN (hypertension) POA: Yes Subarachnoid hemorrhage following injury, no loss of consciousness (HCC) POA: Yes Facial droop POA: Yes Dysarthria POA: Yes Fall POA: Yes Current use of half-way anticoagulation POA: Yes Atrial fibrillation (HCC) POA: Yes QT prolongation POA: Yes Bradycardia POA: Yes Urinary retention POA: Unknown Resolved Problems: * No resolved hospital problems. * Hospital Course as Described to the Patient: You were admitted for SDH. Additional Provider to Provider Information: The patient is an 86-year-old male that presented to the hospital on 07/22 after a ground-level fall and was found to have a small subdural hemorrhage. 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 The patient has also been intermittently lightheaded over the past couple of weeks. He also has an extensive history of bradycardia. His initial NIH was 4 for the left facial droop, right-sided ataxia, and dysarthria. His Coumadin was reversed at [facility]. The patient's blood pressure has been well controlled in the neuros NS ICU with minimal interventions. He has been noted to be orthostatic on ambulation. Cardiology and electrophysiology were consulted and did not recommend any acute interventions at this time. He can wear an event monitor and hold his Norvasc. The patient was restarted on DVT prophylaxis. He was also given Keppra for seizure prophylaxis. MRI revealed mild subarachnoid hemorrhage. Operations During Hospitalization: None Procedures During Hospitalization: No procedures performed Labs and Procedures Pending at Discharge: No pending results. Consulting Teams During Hospitalization: Treatment Team: Attending Provider: Allison Lopez DO Consulting: Jose Rafael Darden MD Consulting: Minerva Kowalski MD Consulting: Samy Che MD Consulting: George Galloway MD Primary Service: BORIS Chowdary Patient Condition @ Discharge: Good Discharge Disposition: Home/Self Care PHYSICAL EXAM: Discharge Physical Exam: VITAL SIGNS: BP 156/72 Pulse (!) 54 Temp 36.3 ?C (97.3 ?F) (Oral) Resp 18 Ht 172.7 cm (5' 7.99) Wt 78.5 kg (173 lb 1 oz) SpO2 96% BMI 26.32 kg/m? GENERAL: Alert, no distress, cooperative LUNGS: Lungs clear to auscultation, Good diaphragmatic excursion CARDIAC: Normal S1 and S2; no rubs, murmurs, or gallops ABDOMEN: Abdomen soft, non-tender, BS normal, No masses or organomegaly Information Provided to Patient: Given at bedside Discharge Medications: Please see After Visit Summary Med Reconciliation for accurate list of discharge medications. If any questions please contact discharging physician. Future Appointments: Follow Up with PCP: Bashir Cortez MD Follow Up with Neurology Appointments for Next 45 Days None TIME OF CARE : The physician spent 33 minutes was spent in coordinating this discharge including time spent educating patient, examining patient, ordering medications, and completing necessary paperwork SIGNATURE: Zaki Mendez MD PATIENT NAME: George Mcclain DATE: July 24, 2022 TIME: 1:21 PM PAGER/CONTACT #: Nikolas Mccarthy [facility] Sundeep 07-24-2022 STEVEN Telephone (CARMEN) GEORGE MCCLAIN ([id number]) 1935 M Date Time Provider Department 07/24/22 BEATRICE NICHOLSON During your visit today, we recorded the following information about you: Beatrice Nicholson APRN.CARE MANAGEMENT COORDINATOR 07/24/2022 1:57 PM Signed Patient was noted to have atrial fibrillation with slow ventricular response during hospitalization, he is being discharged with a 14-day event monitor. He will need to be a new patient with Dr. Galloway in 4-6 weeks to review the results, may need a pacemaker at some point. He is being discharged from the hospital today. Thank you. Beatrice Nicholson APRN.CARE MANAGEMENT COORDINATOR Angela Gross 07/25/2022 11:09 AM Signed Scheduled. Angela Gross Allergies As of Date: 07/24/2022 (No Known Allergies) Date Reviewed: 07/22/2022 Reviewed by: Karl Brooks RN - Fully Assessed Reason for Visit: Appointment [186] Prescriptions as of 07/25/2022 - atorvastatin (LIPITOR) 40 mg tablet 1 tablet by ORAL/FEEDING TUBE route daily at bedtime. - levETIRAcetam (KEPPRA) 750 mg tablet 1 tablet by ORAL/FEEDING TUBE route twice daily. - allopurinol (ZYLOPRIM) 100 mg tablet Take 100 mg by mouth once daily. - furosemide (LASIX) 40 mg tablet Take 80 mg by mouth twice daily. - cholecalciferol, vitamin D3, 250 mcg (10,000 unit) tab Take 1 tablet by mouth once daily. - vit C-E-zinc zv-hvrb-fsb-zeax (ICAPS AREDS2) 250 mg-200 unit -12.5 mg-1 mg cap Take 1 capsule by mouth once daily. - escitalopram oxalate (LEXAPRO) 20 mg tablet Take 20 mg by mouth once daily. - potassium chloride (KCL-20 ORAL) Take 1 tablet by mouth once daily. - magnesium oxide,aspartate,citr 400 mg magnesium cap Take 1 capsule by mouth once daily. - losartan (COZAAR) 50 mg tablet Take 50 mg by mouth once daily. - pravastatin 40 mg ORAL tablet Take 40 mg by mouth once daily. - warfarin (COUMADIN) 4 mg tablet Take 4-6 mg by mouth daily as directed. 6 mg Mon - Fri 4 mg Sat AND Sun Problem List As Of Date 07/24/2022 Noted Resolved Nonallopathic lesion of cervical region, not el* Osteoarth NOS-other site [M19.90] Lumbago [M54.50] Diverticulosis of colon (without mention of hem* Cervicalgia [M54.2] Elev transaminase/LDH [R74.01, R74.02] Aortic valve disorders [I35.9] Dermatophytosis of nail [B35.1] Pure hyperglyceridemia [E78.1] HTN (hypertension) [I10] Obesity, unspecified [E66.9] Hemorrhage of rectum and anus [K62.5] SDH (subdural hematoma) [S06.5XAA] 07/21/2022 Subarachnoid hemorrhage following injury, no lo*07/21/2022 Facial droop [R29.810] 07/21/2022 Dysarthria [R47.1] 07/21/2022 Fall [W19.XXXA] 07/21/2022 Current use of half-way anticoagulation [Z79.0*07/21/2022 Atrial fibrillation (HCC) [I48.91] 07/22/2022 QT prolongation [R94.31] 07/22/2022 Bradycardia [R00.1] 07/22/2022 Urinary retention [R33.9] 07/23/2022 Encounter Status:Closed by BEATRICE NICHOLSON on 07/25/22 [facility] CONSULT PROGon 07-24-2022 CONSULT PROG HNO ID: [id number] Author: Beatrice Merida APRN.CARE MANAGEMENT COORDINATOR Service: Wound/Ostomy Author Type: Nurse Practitioner Type: Consult Progress Note Filed: 07/24/2022 11:20 AM Note Text: WOUND CARE SERVICE CONSULT TOP CUTTER NOTE SERVICE DATE: 07/24/2022 SERVICE TIME: 09:29 TIME SPENT (minutes): 30 REASON FOR CONSULT: toe wounds CHIEF COMPLAINT: Wounds to toes Subjective HISTORY OF PRESENT ILLNESS: Mr. Mcclain is a 86 year old male who is seen today by Wound Care for toe wounds. Patient presented to hospital with complaints of fall from ground level. Patient ws noted to have left facial droop with left sided weakness at home and so EMS was called. PERTINENT REVIEW OF SYSTEMS: GENERAL: denies fever or chills PAIN ASSESSMENT: denies pain to wounds on toes SKIN: admits to small wounds on toes RESPIRATORY: denies SOB or cough GI/: denies nausea or vomiting PAST MEDICAL HISTORY Diagnosis Date Aortic valve disorders Cervicalgia Coronary atherosclerosis Dermatophytosis of nail Diverticulosis of colon (without mention of hemorrhage) Essential hypertension, benign Hemorrhage of rectum and anus Lesion of plantar nerve Lumbago Nonallopathic lesion of cervical region, not elsewhere classified Nonspecific elevation of levels of transaminase or lactic acid dehydrogenase (LDH) Obesity, unspecified Osteoarthrosis, unspecified whether generalized or localized, other specified sites Pure hyperglyceridemia Unspecified hyperplasia of prostate PAST SURGICAL HISTORY Procedure Laterality Date CHOLECYSTECTOMY COLONOSCOP W/ OR W/O RUST SPEC 05/2009 Colonoscopy COLONOSCOP W/ OR W/O RUST SPEC 05/01/2011 Colonoscopy PAST SURGICAL HISTORY OF 04/2001 aortic valve replacement surgery- mechanical - [facility] - Dr. Esteban REMOVAL OF TONSILS,<12 Y/O Tonsillectomy and adeniodectomy Social History Tobacco Use Smoking status: Former Smokeless tobacco: Never Substance Use Topics Alcohol use: Yes Alcohol/week: 5.0 standard drinks Types: 1 Glasses of Wine (5oz), 1 Cans of Beer (12oz) per week Drug use: Never FAMILY HISTORY Problem Relation Age of Onset Alzheimer's Disease Father other (Other) Mother possible brain tumor None Brother No Known Problems Son No Known Problems Daughter MEDICATIONS: Current Facility-Administered Medications Medication Dose Route Frequency bisacodyl 10 mg suppository (DULCOLAX) 10 mg RECTAL DAILY PRN NaCl 0.9% iv flush bag 20 mL INTRAVENOUS PRN acetaminophen 650 mg tab(s) (TYLENOL) 650 mg ORAL/FEEDING TUBE q 4 H PRN Or acetaminophen 650 mg CUP (TYLENOL) 650 mg ORAL/FEEDING TUBE q 4 H PRN Or acetaminophen 650 mg suppository (TYLENOL) 650 mg RECTAL q 4 H PRN levETIRAcetam 750 mg tab(s) (KEPPRA) 750 mg ORAL/FEEDING TUBE BID atorvastatin 40 mg tab(s) (LIPITOR) 40 mg ORAL/FEEDING TUBE AT BEDTIME heparin 5,000 Units injection 5,000 Units SUBCUTANEOUS q 8 H mupirocin 2 % 0.5 g nasal ointment (BACTROBAN) 0.5 g NASAL BID allopurinol 100 mg tab(s) (ZYLOPRIM) 100 mg ORAL DAILY ALLERGIES No Known Allergies Objective PHYSICAL EXAM: BP 167/69 Pulse (!) 52 Temp 36.7 ?C (98.1 ?F) (Axillary) Resp 18 Ht 172.7 cm (5' 7.99) Wt 78.5 kg (173 lb 1 oz) SpO2 95% BMI 26.32 kg/m? General appearance: alert and oriented male lying in hospital bed Respiratory: no SOB or cough noted Cardiovascular: faint pedal pulses bilaterally, feet warm to touch Extremities: small dry wounds to toes Integumentary: Wounds to toes DATA Labs: WBC 9.75 Presenting wound information: Wound 07/23/22 1159 Traumatic Toe (Comment which one) Right (Active) Assessments 07/24/2022 9:32 AM Wound Image Site Assessment Black;Dry Nirali-Wound Assessment Intact;Dry Drainage Amount None Treatments Open to Air Active Orders Date Order Priority Status Authorizing Provider 07/24/22 1113 WOUND CARE (NURSING COMMUNICATION ONLY - NOT A CONSULT TO WOUND CARE) (SPECIFY) ([place], [place]) Routine Active Beatrice Merida APRN.CARE MANAGEMENT COORDINATOR - Specify:: Povodine iodine to wounds on toes. NO cover dressing needed. Wound 07/23/22 1159 Traumatic Toe (Comment which one) Left (Active) Assessments 07/24/2022 9:32 AM Wound Image Site Assessment Black;Dry Nirali-Wound Assessment Dry;Intact Drainage Amount None Treatments Open to Air Active Orders Date Order Priority Status Authorizing Provider 07/24/22 1113 WOUND CARE (NURSING COMMUNICATION ONLY - NOT A CONSULT TO WOUND CARE) (SPECIFY) ([place], [place]) Routine Active Beatrice Merida APRN.CARE MANAGEMENT COORDINATOR - Specify:: Povodine iodine to wounds on toes. NO cover dressing needed. Wound Care Plan: Orders Placed This Encounter WOUND CARE (NURSING COMMUNICATION ONLY - NOT A CONSULT TO WOUND CARE) (SPECIFY) ([place], [place]) Freq: Daily Order Specific Question: Specify: Answer: Povodine iodine to wounds on toes. NO cover dressing needed. Barriers to Healing: Age, Comorbid conditions, and Mobility Pressure Injury Prevention: Redistribution surface (more content not included)... Normal [facility] Magnesium SerPl-mCncon 07-24 Magnesium [Mass/Vol] 2.0 mg/dL Normal 1.7-2.3 [facility] Comment on above: Order Comment: Speci men Type: BLOOD SPECIMEN Ordering Facility: [facility] Address: [address] [place] [phone] Performed By: #### 5 7021-8 #### [facility] CLIA [id number] [address] [place] [address] [place] Phosphate SerPl-mCncon 07-24 Phosphate [Mass/Vol] 2.7 mg/dL Normal 2.7-4.8 [facility] Comment on above: Order Comment: Speci men Type: BLOOD SPECIMEN Ordering Facility: [facility] Address: [address] [place] [address] Performed By: #### 5 7021-8 #### [facility] CLIA [id number] [address] [facility] ALLIED HEALTHon 07-23-2022 ALLIED HEALTH HNO ID: [id number] Author: Chaplain Blaise Service: ? Author Type: [employer] Type: [facility] Filed: 07/23/2022 12:50 PM Note Text: SPIRITUAL CARE PROGRESS NOTE SERVICE DATE: 07/23/2022 SERVICE TIME: 11:45AM [employer] Rounds: Checked in on the patient and spoke with family members. I provided empathic listening and words of comfort. To contact the Spiritual Care Department: Please call [phone]. SIGNATURE: Chaplain Blaise PATIENT NAME: George Mcclain DATE: July 23, 2022 TIME: 12:49 PM PAGER/CONTACT #: [phone] Normal [facility] Basic metabolic 2000 panelon 07-23-2022 Anion gap [Moles/Vol] 7 mmol/L Low 9-18 [facility] Comment on above: Order Comment: Speci men Type: BLOOD SPECIMEN Ordering Facility: [facility] Address: [address] [address] Performed By: #### 5 643-2 #### [facility] CLIA [id number] [address] [facility] Calcium [Mass/Vol] 9.1 mg/dL Normal 8.5-10.2 [facility] Comment on above: Order Comment: Speci men Type: BLOOD SPECIMEN Ordering Facility: [facility] Address: [address] [place] [address] Performed By: #### 5 643-2 #### [facility] CLIA [id number] [address] Chloride [Moles/Vol] 105 mmol/L Normal 97-105 [facility] Comment on above: Order Comment: Speci men Type: BLOOD SPECIMEN Ordering Facility: [facility] Address: [address] [place] [address] Performed By: #### 5 643-2 #### [facility] CLIA [id number] [address] [facility] CO2 [Moles/Vol] 27 mmol/L Normal 22-30 [facility] Comment on above: Order Comment: Speci men Type: BLOOD SPECIMEN Ordering Facility: [facility] Address: [address] [place] [address] Performed By: #### 5 643-2 #### [facility] CLIA [id number] [address] [facility] Creatinine [Mass/Vol] 0.85 mg/dL Normal 0.73-1.22 [facility] Comment on above: Order Comment: Speci men Type: BLOOD SPECIMEN Ordering Facility: [facility] Address: [address] [place] [address] Performed By: #### 5 643-2 #### [facility] CLIA [id number] [address] ESTIMATED GLOMERULAR FILTRATION RATE 86 mL/min/1.73m??? Normal >=60 [facility] Comment on above: Order Comment: Speci men Type: BLOOD SPECIMEN Ordering Facility: [facility] Address: [address] [place] [address] Result Comment: Judith mated Glomerular Filtration Rate (eGFR) is calculated using the 2020 CKD-EPI creatinine equation. This equation utilizes serum creatinine, sex, and age as parameters. The creatinine assay has traceable calibration to isotope dilution-mass spectrometry. Refer to KDIGO guidelines for clinical interpretation. In patients with unstable renal function, e.g. those with acute kidney injury, the eGFR may not accurately reflect actual GFR. Performed By: #### 5 643-2 #### [facility] CLIA [id number] [address] [place] [address] [place] Glucose [Mass/Vol] 104 mg/dL High 74-99 [facility] Comment on above: Order Comment: Ramy wu Type: BLOOD SPECIMEN Ordering Facility: [facility] Address: [address] [place] [address] Result Comment: The [place] Diabetes Association (ADA) provides guidance for cutoff values for fasting glucose and random glucose. The ADA defines fasting as no caloric intake for at least 8 hours. Fasting plasma glucose results between 100 to 125 mg/dL indicate increased risk for diabetes (prediabetes). Fasting plasma glucose results greater than or equal to 126 mg/dL meet the criteria for diagnosis of diabetes. In the absence of unequivocal hyperglycemia, results should be confirmed by repeat testing. In a patient with classic symptoms of hyperglycemia or hyperglycemic crisis, random plasma glucose results greater than or equal to 200 mg/dL meet the criteria for diagnosis of diabetes. Reference: Standards of Medical Care in Diabetes 2016, [employer] Diabetes Association. Diabetes Care. 2016.39(Suppl 1). Performed By: #### 5 643-2 #### [facility] CLIA [id number] [address] [place] [address] [place] Potassium [Moles/Vol] 4.1 mmol/L Normal 3.7-5.1 [facility] Comment on above: Order Comment: Ramy wu Type: BLOOD SPECIMEN Ordering Facility: [facility] Address: [address] [place] [address] Performed By: #### 5 643-2 #### [facility] CLIA [id number] 1 [place] [address] [place] Sodium [Moles/Vol] 139 mmol/L Normal 136-144 [facility] Comment on above: Order Comment: Elenii men Type: BLOOD SPECIMEN Ordering Facility: [facility] Address: [address] [place] [address] Performed By: #### 5 643-2 #### [facility] CLIA [id number] 1 [place] [address] [place] Urea nitrogen [Mass/Vol] 17 mg/dL Normal 9-24 [facility] Comment on above: Order Comment: Speci men Type: BLOOD SPECIMEN Ordering Facility: [facility] Address: [address] [address] Performed By: #### 5 643-2 #### [facility] CLIA [id number] [address] [place] CBC W Auto Differential pane l (Bld)on 07-23-2022 Basophils (Bld) [#/Vol] 0.07 10*3/uL Normal <0.11 [facility] Comment on above: Order Comment: Speci men Type: BLOOD SPECIMEN Ordering Facility: [facility] Address: [address] [address] Performed By: #### 5 7021-8 #### [facility] CLIA [id number] [address] [place] Basophils/100 WBC (Bld) 0.6 % Normal [facility] Comment on above: Order Comment: Speci men Type: BLOOD SPECIMEN Ordering Facility: [facility] Address: [address] [address] Performed By: #### 5 7021-8 #### [facility] CLIA [id number] [address] Differential cell count method Nom (Bld) Auto Normal [facility] Comment on above: Order Comment: Speci men Type: BLOOD SPECIMEN Ordering Facility: [facility] Address: [address] [address] Performed By: #### 5 7021-8 #### [facility] CLIA [id number] [address] [place] [address] [place] Eosinophils (Bld) [#/Vol] 0.16 10*3/uL Normal <0.46 [facility] Comment on above: Order Comment: Speci men Type: BLOOD SPECIMEN Ordering Facility: [facility] Address: [address] [address] Performed By: #### 5 7021-8 #### [facility] CLIA [id number] [address] Eosinophils/100 WBC (Bld) 1.5 % Normal [facility] Comment on above: Order Comment: Speci men Type: BLOOD SPECIMEN Ordering Facility: [facility] Address: [address] [place] [address] Performed By: #### 5 7021-8 #### [facility] CLIA [id number] [address] Erythrocyte distribution width (RBC) [Ratio] 14.1 % Normal 11.5-15.0 [facility] Comment on above: Order Comment: Speci men Type: BLOOD SPECIMEN Ordering Facility: [facility] Address: [address] [place] [address] Performed By: #### 5 7021-8 #### [facility] CLIA [id number] [address] Hematocrit (Bld) [Volume fraction] 38.2 % Low 39.0-51.0 [facility] Comment on above: Order Comment: Speci men Type: BLOOD SPECIMEN Ordering Facility: [facility] Address: [address] [place] [address] Performed By: #### 5 7021-8 #### [facility] CLIA [id number] [address] Hemoglobin (Bld) [Mass/Vol] 12.8 g/dL Low 13.0-17. 0 [facility] Comment on above: Order Comment: Speci men Type: BLOOD SPECIMEN Ordering Facility: [facility] Address: [address] [place] [address] Performed By: #### 5 7021-8 #### [facility] CLIA [id number] [address] Immature granulocytes (Bld) [#/Vol] 0.06 10*3/uL Normal <0.10 [facility] Comment on above: Order Comment: Speci men Type: BLOOD SPECIMEN Ordering Facility: [facility] Address: [address] [address] Performed By: #### 5 7021-8 #### [facility] CLIA [id number] [address] Immature granulocytes/100 WBC (Bld) 0.5 % Normal [facility] Comment on above: Order Comment: Speci men Type: BLOOD SPECIMEN Ordering Facility: [facility] Address: [address] [place] [address] Performed By: #### 5 7021-8 #### [facility] CLIA [id number] [address] [place] Lymphocytes (Bld) [#/Vol] 2.26 10*3/uL Normal 1.00-4.0 0 [facility] Comment on above: Order Comment: Speci men Type: BLOOD SPECIMEN Ordering Facility: [facility] Address: [address] [place] [address] Performed By: #### 5 7021-8 #### [facility] CLIA [id number] [address] [place] [address] Lymphocytes/100 WBC (Bld) 20.5 % Normal [facility] Comment on above: Order Comment: Speci men Type: BLOOD SPECIMEN Ordering Facility: [facility] Address: [address] [place] [address] Performed By: #### 5 7021-8 #### [facility] CLIA [id number] [address] MCH (RBC) [Entitic mass] 31.1 pg Normal 26.0-34.0 [facility] Comment on above: Order Comment: Speci men Type: BLOOD SPECIMEN Ordering Facility: [facility] Address: [address] [place] [address] Performed By: #### 5 7021-8 #### [facility] CLIA [id number] [address] [place] MCHC (RBC) [Mass/Vol] 33.5 g/dL Normal 30.5-36.0 [facility] Comment on above: Order Comment: Speci men Type: BLOOD SPECIMEN Ordering Facility: [facility] Address: [address] [address] Performed By: #### 5 7021-8 #### [facility] CLIA [id number] [address] MCV (RBC) [Entitic vol] 92.7 fL Normal 80.0-100.0 [facility] Comment on above: Order Comment: Speci men Type: BLOOD SPECIMEN Ordering Facility: [facility] Address: [address] [address] Performed By: #### 5 7021-8 #### [facility] CLIA [id number] [address] OF [facility] Monocytes (Bld) [#/Vol] 1.09 10*3/uL High <0.87 [facility] Comment on above: Order Comment: Speci men Type: BLOOD SPECIMEN Ordering Facility: [facility] Address: [address] [place] [address] Performed By: #### 5 7021-8 #### [facility] CLIA [id number] [address] Monocytes/100 WBC (Bld) 9.9 % Normal [facility] Comment on above: Order Comment: Speci men Type: BLOOD SPECIMEN Ordering Facility: [facility] Address: [address] [place] [address] Performed By: #### 5 7021-8 #### [facility] CLIA [id number] [address] Neutrophils (Bld) [#/Vol] 7.39 10*3/uL Normal 1.45-7.5 0 [facility] Comment on above: Order Comment: Speci men Type: BLOOD SPECIMEN Ordering Facility: [facility] Address: [address] [place] [address] Performed By: #### 5 7021-8 #### [facility] CLIA [id number] [address] [place] Neutrophils/100 WBC (Bld) 67.0 % Normal [facility] Comment on above: Order Comment: Speci men Type: BLOOD SPECIMEN Ordering Facility: [facility] Address: [address] [address] Performed By: #### 5 7021-8 #### [facility] CLIA [id number] [address] Nucleated RBC (Bld) [#/Vol] 10*3/uL Normal <0.01 [facility] Comment on above: Order Comment: Speci men Type: BLOOD SPECIMEN Ordering Facility: [facility] Address: [address] [place] [address] Performed By: #### 5 7021-8 #### [facility] CLIA [id number] [address] Nucleated RBC/100 WBC (Bld) [Ratio] 0.0 /100 WBC Normal [facility] Comment on above: Order Comment: Speci men Type: BLOOD SPECIMEN Ordering Facility: [facility] Address: [address] [address] Performed By: #### 5 7021-8 #### [facility] CLIA [id number] [address] Platelet mean volume (Bld) [Entitic vol] 9.7 fL Normal 9.0-12.7 [facility] Comment on above: Order Comment: Speci men Type: BLOOD SPECIMEN Ordering Facility: [facility] Address: [address] [address] Performed By: #### 5 7021-8 #### [facility] CLIA [id number] [address] [place] Platelets (Bld) [#/Vol] 187 10*3/uL Normal 150-400 [facility] Comment on above: Order Comment: Speci men Type: BLOOD SPECIMEN Ordering Facility: [facility] Address: [address] [address] Performed By: #### 5 7021-8 #### [facility] CLIA [id number] [address] [place] RBC (Bld) [#/Vol] 4.12 10*6/uL Low 4.20-6.00 [facility] Comment on above: Order Comment: Speci men Type: BLOOD SPECIMEN Ordering Facility: [facility] Address: [address] [place] [address] Performed By: #### 5 7021-8 #### [facility] CLIA [id number] [address] WBC (Bld) [#/Vol] 11.03 10*3/uL High 3.70-11.00 [facility] Comment on above: Order Comment: Speci men Type: BLOOD SPECIMEN Ordering Facility: [facility] Address: [address] [place] [address] Performed By: #### 5 7021-8 #### [facility] CLIA [id number] [address] Magnesium SerPl-mCncon 07-23 Magnesium [Mass/Vol] 2.0 mg/dL Normal 1.7-2.3 [facility] Comment on above: Order Comment: Speci men Type: BLOOD SPECIMEN Ordering Facility: [facility] Address: [address] [place] [address] Performed By: #### 5 643-2 #### [facility] CLIA [id number] [address] OF [facility] NUTRITIONon 07-23-2022 NUTRITION HNO ID: [id number] Author: Bianca Escobar RD Service: Nutrition Therapy Author Type: Registered Dietitian Type: Nutrition Filed: 07/23/2022 1:16 PM Note Text: SCREEN NOTE SERVICE DATE: 07/23/2022 SERVICE TIME: 11:15 AM NUTRITION THERAPY: TEACHING DIETITIAN NOTE OF PERSONAL INVOLVEMENT OF CARE. I have reviewed and agree with the assessment as documented by the management internship. I have discussed the case and management of the patient?s nutrition therapy with the management internship. SIGNATURE: Bianca Escobar RD DATE: July 23, 2022 TIME: 1:15 PM Stroke screening consult Care Plan: Continue current diet : HH 4 g sodium Discharge Recommendations: Diet Diet: Heart healthy/ 4 gram sodium Intake History: Nutrition Intake Prior to Admission: Greater than 75% estimated energy needs greater than or equal to 3 months Current Nutrition Intake: 0-25% estimated energy needs (No appetite) Current Intake Over time: (Past 24 hours.) Diet Orders (From admission, onward) Start Ordered 07/22/22 1015 DIET HEART HEALTHY START NOW Question: Heart Healthy Answer: 4 GM SODIUM (LOW SAT FAT) 07/22/22 1014 Anthropometrics: Height: 172.7 cm (5' 8) Weight: 78.5 kg (173 lb 1 oz) Usual Weight: 78.5 kg (173 lb) Past 2 years Usual Weight Obtained From: Patient Weight change percentage over time: Weight has been stable for 2 years MNT Billing: $ Initial Assessment: 1-15 minutes SIGNATURE: Nico Whitlock, Escrow Agent PATIENT NAME: George Mcclain DATE: July 23, 2022 TIME: 11:15 AM 1074 Normal [facility] Phosphate SerPl-mCncon 07-23 Phosphate [Mass/Vol] 3.1 mg/dL Normal 2.7-4.8 [facility] Comment on above: Order Comment: Speci men Type: BLOOD SPECIMEN Ordering Facility: [facility] Address: [address] [place] [address] Performed By: #### 5 643-2 #### [facility] CLIA [id number] [address] [place] [address] [facility] THERAPY NTon 07-23-2022 THERAPY NT HNO ID: [id number] Author: Martín Machado PT Service: Physical Therapy Author Type: Physical Therapist Type: Therapy (PT/OT/Speech/Resp) Filed: 07/23/2022 2:32 PM Note Text: Physical Therapy Evaluation SERVICE DATE: 07/23/2022 SERVICE TIME: 1408 to 1423 ROOM: [address] [address] Recommended Discharge Disposition: Home Recommended Discharge Disposition Comments: Patient is functioning close to baseline with anticipation of further improvement while in house. He is appropriate for discharge home once medically stable with assist from family as needed. No further skilled PT needs anticipated post discharge. Anticipated Discharge Needs: Physical Assist at Home Physical Assist at Home for: Shopping;Transportati on Supervision at Home due to: (medical status change) Recommended Discharge Equipment: No equipment needs anticipated PT 6 Clicks Score: 22 Precautions/Activity Restrictions: Fall Risk Current Hospital Course: Pt fell and concern for CVA due to L facial droop, R ataxia, and dysarthria. MRI (-) CVA, + SAH/SDH of L interhemispheris fissure. Given anticoagulant reversal agents. Reason for Hospital Admission: Transfer from [place] post fall Relevant Past Medical History: HTN, lumbago, cervicalgia, OA, aortic valve d/o, macular degeneration Response to Therapy Interventions: Good participation in activities Continue skilled needs due to: Functional mobility/skill impairments Physical Therapy Problem List: Functional Mobility Impairment Treatment Interventions: Education;Strengtheni ng;Functional Mobility Training;Balance Training;Neuromuscula r Re-education Plan for next visit: Bed mobility, Gait training, Fall prevention, Sit to Stand Transfers, Standing Balance, Standing Tolerance Home Environment Patient Lives With: Spouse Assistance Available: Part-Time Entry To Home: Stairs Number Of Stairs Into Home: 2 Number Of Stairs To Bed/Bath: 0 Tub/Shower Type: walk in shower Laundry: main floor Equipment Owned: Wheeled Walker;Cane;Grab Bars-Shower;Commode-R aised Prior Functional Level: Within Functional Limits Prior Functional Level Comments: Pt rpts that he was independent with ADLs/IADLs. Drives during the day only due to macular degeneration. Walks without a device but notes he has baseline balance problems. Pt notes has been experiencing L LE weakness for the past year and balance problems that he has gone to outpt PT in the past. Pt works out daily at the gym, likes to read and do yardwork. Can't play tennis anymore due to balance issues. Baseline Cognition: Oriented to self;Oriented to place;Oriented to time Patient Report: Pleasant and cooperative CURRENT FUNCTIONAL STATUS: Most recent performance mobility performed during session in bold, other mobility completed during prior session and may no longer be correct or appropriate to complete. Current Functional Mobility Assist Level Additional Information Rolling Supine to Sit Sit to Supine Scooting Stand By Assistance Sit to Stand Stand By Assistance Stand to Sit Stand By Assistance Bed to Chair Toilet/Commode Gait Contact Guard Assistance;Additional Information Gait Device: None Gait Distance (feet): 150'x1 No instability or LOB noted. Stairs Curb Step Car Transfer Blank coburn indicate activity not attempted General Deviations/Observatio ns: Ebony decreased;Step length decreased Range of Motion: WFL Strength: WFL Balance: Dynamic Sitting;Dynamic Standing Dynamic Sitting Balance: Good Patient accepts moderate challenge, able to maintain balance while picking up object off floor Dynamic Standing Balance: Fair Patient accepts minimal challenge, able to maintain balance while turning head/trunk Activity Tolerance: Standing Activity Standing Activity: ambulation Standing Activity Tolerance (in minutes): 1 JH-HLM: 7: Walk 25 feet or more Learning/Educational Needs: Discharge Plan;Rehabilitation Techniques and Procedures Mini Cog Score: 2 (07/23/22 0907) Goals for Plan of Care: Patient /Caregiver Goals: Go Home Able to perform HEP with: Independent Transfer supine to/from sit with: Independent Transfer sit to/from stand with: Independent Ambulate with: Independent Distance: 250'x1 Device: No Device Ambulate up and down steps with: Independent Number of steps: 2 Device: Rail Rehab Potential: Good Patient will be discontinued from Physical Therapy when no further skilled needs are identified in this setting. PLAN: PT Frequency: 3 times per week (1-3) Plan of Care developed with: Patient TREATMENT INTERVENTIONS: Therapy Diagnosis: Reduced mobility-other Interventions Provided: Evaluation $ Evaluation-Low (14006) Billed Units: 1 unit Training AND education provided in: Assistive device use, Bed mobility, Benefits of in-hospital mobility, Falls prevention, Gait pattern, reduction of deviations, Discharge planning, Role of Physical Therapy, Standing bal (more content not included)... Normal [facility] THERAPY NT HNO ID: [id number] Author: PRANAV Sharp/L Service: Occupational Therapy Author Type: Occupational Therapist Type: Therapy (PT/OT/Speech/Resp) Filed: 07/23/2022 10:57 AM Note Text: Occupational Therapy Evaluation SERVICE DATE: 07/23/2022 SERVICE TIME: 906 to 931 ROOM: [place] [address] Recommended Discharge Disposition: Home Recommended Discharge Disposition Comments: Recc home with family assist as needed for IADLs Anticipated Discharge Needs: Supervision at Home;Physical Assist at Home Physical Assist at Home for: Shopping;Transportati on;Laundry;Cleaning Supervision at Home due to: (medical status change) OT 6 Clicks Score: 20 Conducted mini cog assessment this evaluation. Pt scored a 2. A total score of 3, 4, or 5 indicates lower likelihood of dementia but does not rule out some degree of cognitive impairment. Performed Short Blessed Test on this date. A screening test in itself is insufficient to diagnose a dementing order. However, the SBT is quite sensitive to early cognitive changes associated with dementing disorders. A score in the impaired range indicate a need for further assessment. Pt scored a 2 on this date. A score of 10 or more suggests impairment consistent with dementia. Educated on avoiding bending over at waist due to balance troubles and now with head bleed. Facilitated donning pants in room and walking in hallway with fall guard assist. Pt rpts he feels stiff but a little below his baseline. Educated on home safety strategies and how he should continue to get help while moving in the hospital. Precautions/Activity Restrictions: Fall Risk Current Hospital Course: Pt fell and concern for CVA due to L facial droop, R ataxia, and dysarthria. MRI (-) CVA, + SAH/SDH of L interhemispheris fissure. Given anticoagulant reversal agents. Reason for Hospital Admission: Transfer from [place] post fall Relevant Past Medical History: HTN, lumbago, cervicalgia, OA, aortic valve d/o, macular degeneration Response to Therapy Interventions: Good participation in activities, Improved tolerance for activity, On-track to achieve discharge goals Continue skilled needs due to: Functional impairment Occupational Therapy Problem List: Education Deficit;Safety Deficits;Impaired Self Care;Functional Mobility Impairment;Balance Impaired;Decreased Activity Tolerance Cognition/Communicati on Deficits Responsiveness: Alert, Awake Follows Commands: 2-step Commands Cognitive Clinical Tests and Screens: Short Blessed Test, Mini Cog Clock Draw Test: 0-Abnormal Word Recall: 2-recalled words Mini Cog Score: 2 1. What Year Is It Now?: Correct 2. What Month Is It Now?: Correct 3. What Time is it? (WIthin 1 hour): Correct 4. Count Aloud Backwards 20 to 1 (Errors): 1 5. Months of the Year in Reverse Order (Errors): 0 6. Memory Phrase (Errors) : 0 Short Blessed Final Score: 2 Treatment Interventions: Education;Self Care / Home Management;Cognitive Training Home Environment Patient Lives With: Spouse Assistance Available: Part-Time (pt rpts that his has a lot of social obligations) Entry To Home: Stairs Number Of Stairs Into Home: 2 Number Of Stairs To Bed/Bath: 0 Tub/Shower Type: walk in shower Laundry: main floor Equipment Owned: Wheeled Walker;Cane;Grab Bars-Shower;Commode-R aised (CPAP) Prior Functional Level: Within Functional Limits Prior Functional Level Comments: Pt rpts that he was independent with ADLs/IADLs. Drives during the day only due to macular degeneration. Walks without a device but notes he has baseline balance problems. Pt notes has been experiencing L LE weakness for the past year and balance problems that he has gone to outpt PT in the past. Pt works out daily at the gym, likes to read and do yardwork. Can't play tennis anymore due to balance issues. 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 Pleasant and willing to get up and move around CURRENT FUNCTIONAL STATUS: Most recent performance Current Activities of Daily Living Assist Level Additional Information Feeding Independent Grooming Contact Guard Assistance Bathing Upper Body Stand By Assistance Bathing Lower Body Contact Guard Assistance Dressing Upper Body Stand By Assistance Dressing Lower Body Minimal Assistance;Additional Information difficult to tie drawstring and pull pants over grippy socks Toileting Contact Guard Assistance Functional Mobility Assist Level Additional Information Rolling Supine to Sit Sit to Supine Scooting Sit to Stand Stand By Assistance Stand to Sit Stand By Assistance Bed to Chair Toilet/Commode Shower Functional Mobility Contact Gua (more content not included)... Normal [facility](OH[facility] 25-hydroxyvitamin D3 [Mass/Vol] 30.0 ng/mL Normal >=30.0 [facility] Comment on above: Order Comment: Speci men Type: BLOOD SPECIMEN Ordering Facility: [facility] Address: [address] [address] [place] [address] Result Comment: Clas sification of 25 [place] Vitamin D status: Deficiency: <= 20.0 ng/ml. Insufficiency: 21.0-29.0 ng/ml. Sufficiency: >= 30.0 ng/ml. Performed By: #### 5 643-2 #### [facility] CLIA [id number] [address] [facility] 07-22-2022 [facility] HNO ID: [id number] Author: RT Obed(R) Service: Radiology Author Type: Technologist Type: Allied Health Filed: 07/22/2022 1:49 PM Note Text: Radiology Service Progress Note PATIENT NAME: George Mcclain DATE OF SERVICE: July 22, 2022 TIME: 1:49 PM PATIENT IDENTITY VERIFICATION COMPLETED USING TWO (2) IDENTIFIERS: Name and Date of confirmed by patient verbally and Name and Date of confirmed by identification band. FALL SCREENING: Has the patient had 2 falls in the last year or 1 fall with injury or currently using an Ambulatory Assistive Device (Walker, Cane, Wheelchair, Crutches, etc.)? Inpatient: Screened on floor PATIENT GENDER DATA: Male PATIENT RELEVANT IMPLANT DATA REVIEWED: Yes RADIOLOGY DEPARTMENT: MR; Exam(s) Completed: Head: Routine Brain PERIPHERAL IV DATA: Not applicable SIGNED BY: RT Obed(R) July 22, 2022 1:49 PM Normal [facility] HNO ID: [id number] Author: RT Vitor(R) Service: Radiology Author Type: Technologist Type: Allied Health Filed: 07/22/2022 7:25 AM Note Text: Radiology Service Progress Note PATIENT NAME: George Mcclain DATE OF SERVICE: July 22, 2022 TIME: 7:25 AM PATIENT IDENTITY VERIFICATION COMPLETED USING TWO (2) IDENTIFIERS: Name and Date of confirmed by patient verbally and Name and Date of confirmed by identification band. FALL SCREENING: Has the patient had 2 falls in the last year or 1 fall with injury or currently using an Ambulatory Assistive Device (Walker, Cane, Wheelchair, Crutches, etc.)? Inpatient: Screened on floor PATIENT GENDER DATA: Male PATIENT RELEVANT IMPLANT DATA REVIEWED: Not Applicable RADIOLOGY DEPARTMENT: General X-ray: Exam(s) Completed: Pelvis X-Ray: Pelvis General AP PERIPHERAL IV DATA: Not applicable SIGNED BY: RT Annie(R) July 22, 2022 7:25 AM Normal [facility] Basic metabolic 2000 panelon 07-22-2022 Anion gap [Moles/Vol] 9 mmol/L Normal 9-18 [facility] Comment on above: Order Comment: Speci men Type: BLOOD SPECIMEN Ordering Facility: [facility] Address: [address] [place] [address] Performed By: #### 5 643-2 #### [facility] CLIA [id number] [address] [place] Calcium [Mass/Vol] 8.8 mg/dL Normal 8.5-10.2 [facility] Comment on above: Order Comment: Speci men Type: BLOOD SPECIMEN Ordering Facility: [facility] Address: [address] [place] [address] Performed By: #### 5 643-2 #### [facility] CLIA [id number] [address] [place] Chloride [Moles/Vol] 106 mmol/L High 97-105 [facility] Comment on above: Order Comment: Speci men Type: BLOOD SPECIMEN Ordering Facility: [facility] Address: [address] [place] [address] Performed By: #### 5 643-2 #### [facility] CLIA [id number] [address] [place] CO2 [Moles/Vol] 26 mmol/L Normal 22-30 [facility] Comment on above: Order Comment: Speci men Type: BLOOD SPECIMEN Ordering Facility: [facility] Address: [address] [place] [address] Performed By: #### 5 643-2 #### [facility] CLIA [id number] [address] [place] Creatinine [Mass/Vol] 0.83 mg/dL Normal 0.73-1.22 [facility] Comment on above: Order Comment: Speci men Type: BLOOD SPECIMEN Ordering Facility: [facility] Address: [address] [place] [address] Performed By: #### 5 643-2 #### [facility] CLIA [id number] [address] [place] [address] ESTIMATED GLOMERULAR FILTRATION RATE 86 mL/min/1.73m??? Normal >=60 [facility] Comment on above: Order Comment: Ramy wu Type: BLOOD SPECIMEN Ordering Facility: [facility] Address: [address] [place] [address] Result Comment: Judith mated Glomerular Filtration Rate (eGFR) is calculated using the 2020 CKD-EPI creatinine equation. This equation utilizes serum creatinine, sex, and age as parameters. The creatinine assay has traceable calibration to isotope dilution-mass spectrometry. Refer to KDIGO guidelines for clinical interpretation. In patients with unstable renal function, e.g. those with acute kidney injury, the eGFR may not accurately reflect actual GFR. Performed By: #### 5 643-2 #### [facility] CLIA [id number] [address] [place] [address] [place] Glucose [Mass/Vol] 93 mg/dL Normal 74-99 [facility] Comment on above: Order Comment: Ramy wu Type: BLOOD SPECIMEN Ordering Facility: [facility] Address: [address] [place] [address] Result Comment: The [place] Diabetes Association (ADA) provides guidance for cutoff values for fasting glucose and random glucose. The ADA defines fasting as no caloric intake for at least 8 hours. Fasting plasma glucose results between 100 to 125 mg/dL indicate increased risk for diabetes (prediabetes). Fasting plasma glucose results greater than or equal to 126 mg/dL meet the criteria for diagnosis of diabetes. In the absence of unequivocal hyperglycemia, results should be confirmed by repeat testing. In a patient with classic symptoms of hyperglycemia or hyperglycemic crisis, random plasma glucose results greater than or equal to 200 mg/dL meet the criteria for diagnosis of diabetes. Reference: Standards of Medical Care in Diabetes 2016, [place] Diabetes Association. Diabetes Care. 2016.39(Suppl 1). Performed By: #### 5 643-2 #### [facility] [employer] [facility] CLIA [id number] [address] [place] Potassium [Moles/Vol] 3.9 mmol/L Normal 3.7-5.1 [facility] Comment on above: Order Comment: Speci men Type: BLOOD SPECIMEN Ordering Facility: [facility] Address: [address] [place] [address] Performed By: #### 5 643-2 #### [facility] CLIA [id number] [address] [place] Sodium [Moles/Vol] 141 mmol/L Normal 136-144 [facility] Comment on above: Order Comment: Speci men Type: BLOOD SPECIMEN Ordering Facility: [facility] Address: [address] [place] [address] Performed By: #### 5 643-2 #### [facility] CLIA [id number] [address] [place] [facility] Urea nitrogen [Mass/Vol] 15 mg/dL Normal 9-24 [facility] Comment on above: Order Comment: Speci men Type: BLOOD SPECIMEN Ordering Facility: [facility] Address: [address] [place] [address] Performed By: #### 5 643-2 #### [facility] CLIA [id number] [address] [place] CBC W Auto Differential pane l (Bld)on 07-22-2022 Basophils (Bld) [#/Vol] 0.08 10*3/uL Normal <0.11 [facility] Comment on above: Order Comment: Speci men Type: BLOOD SPECIMEN Ordering Facility: [facility] Address: [address] [place] [address] Performed By: #### 5 7021-8 #### [facility] CLIA [id number] [address] Basophils/100 WBC (Bld) 0.8 % Normal [facility] Comment on above: Order Comment: Speci men Type: BLOOD SPECIMEN Ordering Facility: [facility] Address: [address] [place] [address] Performed By: #### 5 7021-8 #### [facility] CLIA [id number] [address] Differential cell count method Nom (Bld) Auto Normal [facility] Comment on above: Order Comment: Speci men Type: BLOOD SPECIMEN Ordering Facility: [facility] Address: [address] [place] [address] Performed By: #### 5 7021-8 #### [facility] CLIA [id number] [address] Eosinophils (Bld) [#/Vol] 0.09 10*3/uL Normal <0.46 [facility] Comment on above: Order Comment: Speci men Type: BLOOD SPECIMEN Ordering Facility: [facility] Address: [address] [place] [address] Performed By: #### 5 7021-8 #### [facility] CLIA [id number] [address] Eosinophils/100 WBC (Bld) 0.9 % Normal [facility] Comment on above: Order Comment: Speci men Type: BLOOD SPECIMEN Ordering Facility: [facility] Address: [address] [place] [address] Performed By: #### 5 7021-8 #### [facility] CLIA [id number] [address] Erythrocyte distribution width (RBC) [Ratio] 14.3 % Normal 11.5-15.0 [facility] Comment on above: Order Comment: Speci men Type: BLOOD SPECIMEN Ordering Facility: [facility] Address: [address] [place] [address] Performed By: #### 5 7021-8 #### [facility] CLIA [id number] [address] Hematocrit (Bld) [Volume fraction] 38.3 % Low 39.0-51.0 [facility] Comment on above: Order Comment: Speci men Type: BLOOD SPECIMEN Ordering Facility: [facility] Address: [address] [address] Performed By: #### 5 7021-8 #### [facility] CLIA [id number] [address] [place] Hemoglobin (Bld) [Mass/Vol] 12.7 g/dL Low 13.0-17. 0 [facility] Comment on above: Order Comment: Speci men Type: BLOOD SPECIMEN Ordering Facility: [facility] Address: [address] [place] [address] Performed By: #### 5 7021-8 #### [facility] CLIA [id number] [address] [place] Immature granulocytes (Bld) [#/Vol] 0.07 10*3/uL Normal <0.10 [facility] Comment on above: Order Comment: Speci men Type: BLOOD SPECIMEN Ordering Facility: [facility] Address: [address] [place] [address] Performed By: #### 5 7021-8 #### [facility] CLIA [id number] [address] Immature granulocytes/100 WBC (Bld) 0.7 % Normal [facility] Comment on above: Order Comment: Speci men Type: BLOOD SPECIMEN Ordering Facility: [facility] Address: [address] [place] [address] Performed By: #### 5 7021-8 #### [facility] CLIA [id number] [address] [place] Lymphocytes (Bld) [#/Vol] 2.17 10*3/uL Normal 1.00-4.0 0 [facility] Comment on above: Order Comment: Speci men Type: BLOOD SPECIMEN Ordering Facility: [facility] Address: [address] [place] [address] Performed By: #### 5 7021-8 #### [facility] CLIA [id number] [address] [place] Lymphocytes/100 WBC (Bld) 21.8 % Normal [facility] Comment on above: Order Comment: Speci men Type: BLOOD SPECIMEN Ordering Facility: [facility] Address: [address] [address] Performed By: #### 5 7021-8 #### [facility] CLIA [id number] [address] MCH (RBC) [Entitic mass] 31.1 pg Normal 26.0-34.0 [facility] Comment on above: Order Comment: Speci men Type: BLOOD SPECIMEN Ordering Facility: [facility] Address: [address] [address] Performed By: #### 5 7021-8 #### [facility] CLIA [id number] [address] MCHC (RBC) [Mass/Vol] 33.2 g/dL Normal 30.5-36.0 [facility] Comment on above: Order Comment: Speci men Type: BLOOD SPECIMEN Ordering Facility: [facility] Address: [address] [address] Performed By: #### 5 7021-8 #### [facility] CLIA [id number] [address] MCV (RBC) [Entitic vol] 93.6 fL Normal 80.0-100.0 [facility] Comment on above: Order Comment: Speci men Type: BLOOD SPECIMEN Ordering Facility: [facility] Address: [address] [address] Performed By: #### 5 7021-8 #### [facility] CLIA [id number] [address] Monocytes (Bld) [#/Vol] 0.97 10*3/uL High <0.87 [facility] Comment on above: Order Comment: Speci men Type: BLOOD SPECIMEN Ordering Facility: [facility] Address: [address] [place] [address] Performed By: #### 5 7021-8 #### [facility] CLIA [id number] [address] [place] Monocytes/100 WBC (Bld) 9.7 % Normal A [facility] Comment on above: Order Comment: Speci men Type: BLOOD SPECIMEN Ordering Facility: [facility] Address: [address] [place] [address] Performed By: #### 5 7021-8 #### [facility] CLIA [id number] [address] [place] [address] [place] Neutrophils (Bld) [#/Vol] 6.59 10*3/uL Normal 1.45-7.5 0 [facility] Comment on above: Order Comment: Speci men Type: BLOOD SPECIMEN Ordering Facility: [facility] Address: [address] [place] [address] Performed By: #### 5 7021-8 #### [facility] CLIA [id number] [address] [place] Neutrophils/100 WBC (Bld) 66.1 % Normal [facility] Comment on above: Order Comment: Speci men Type: BLOOD SPECIMEN Ordering Facility: [facility] Address: [address] [place] [address] Performed By: #### 5 7021-8 #### [facility] CLIA [id number] [address] [place] Nucleated RBC (Bld) [#/Vol] 10*3/uL Normal <0.01 [facility] Comment on above: Order Comment: Speci men Type: BLOOD SPECIMEN Ordering Facility: [facility] Address: [address] [place] [address] Performed By: #### 5 7021-8 #### [facility] CLIA [id number] [address] [place] Nucleated RBC/100 WBC (Bld) [Ratio] 0.0 /100 WBC Normal [facility] Comment on above: Order Comment: Speci men Type: BLOOD SPECIMEN Ordering Facility: [facility] Address: [address] [place] [address] Performed By: #### 5 7021-8 #### [facility] CLIA [id number] [address] Platelet mean volume (Bld) [Entitic vol] 9.5 fL Normal 9.0-12.7 [facility] Comment on above: Order Comment: Speci men Type: BLOOD SPECIMEN Ordering Facility: [facility] Address: [address] [place] [address] Performed By: #### 5 7021-8 #### [facility] CLIA [id number] [address] [place] Platelets (Bld) [#/Vol] 197 10*3/uL Normal 150-400 [facility] Comment on above: Order Comment: Speci men Type: BLOOD SPECIMEN Ordering Facility: [facility] Address: [address] [place] [address] Performed By: #### 5 7021-8 #### [facility] CLIA [id number] [address] RBC (Bld) [#/Vol] 4.09 10*6/uL Low 4.20-6.00 [facility] Comment on above: Order Comment: Speci men Type: BLOOD SPECIMEN Ordering Facility: [facility] Address: [address] [place] [address] Performed By: #### 5 7021-8 #### [facility] CLIA [id number] [address] [place] WBC (Bld) [#/Vol] 9.97 10*3/uL Normal 3.70-11.00 [facility] Comment on above: Order Comment: Speci men Type: BLOOD SPECIMEN Ordering Facility: [facility] Address: [address] [place] [address] Performed By: #### 5 7021-8 #### [facility] CLIA [id number] [address] CONSULTon 07-22-2022 CONSULT HNO ID: [id number] Author: Samy Che MD Service: Cardiovascular Medicine Author Type: Physician Type: Consults Filed: 07/22/2022 2:55 PM Note Text: CVICU Consult Note Service date: 07/22/2022 Subjective History of present illness and brief hospital course: 86 year old male with past medical history of A. 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 The fall happened after waking up from a nap on chair, felt dizzy stumbled and fell to the ground hitting his head on a table that was witnessed by his . She mentioned that he had a left facial droop with a left-sided weakness and slurred speech at that time. In the ED, he was noted to have left facial droop right ataxia and dysarthria along with nystagmus. Radiological work-up with concerns for an acute posterior ischemic stroke, revealed a questionable small subdural hemorrhage along the left side of the falx. Patient was transferred to [facility], concern was that he was having an acute posterior ischemic stroke which caused him to fall. CTH was completed revealing a questionable small subdural hemorrhage along the left side of the falx. CTA was unrevealing for high grade stenosis or LVO. He would not be a candidate for thrombolytic given concern for bleeding in his head and he did not have an LVO for EVT. His INR was 2.8 and he was given kcentra and vit. K for reversal of his warfarin. CVICU was consulted for bradycardia and A. fib management. Patient is currently doing well from cardiac standpoint and denies having any resting chest pain, shortness of breath, orthopnea, PND, edema, palpitations, lightheadedness, dizziness, near syncope or syncope. PAST MEDICAL HISTORY Diagnosis Date Aortic valve disorders Cervicalgia Coronary atherosclerosis Dermatophytosis of nail Diverticulosis of colon (without mention of hemorrhage) Essential hypertension, benign Hemorrhage of rectum and anus Lesion of plantar nerve Lumbago Nonallopathic lesion of cervical region, not elsewhere classified Nonspecific elevation of levels of transaminase or lactic acid dehydrogenase (LDH) Obesity, unspecified Osteoarthrosis, unspecified whether generalized or localized, other specified sites Pure hyperglyceridemia Unspecified hyperplasia of prostate PAST SURGICAL HISTORY Procedure Laterality Date CHOLECYSTECTOMY COLONOSCOP W/ OR W/O RUST SPEC 05/2009 Colonoscopy COLONOSCOP W/ OR W/O RUST SPEC 05/01/2011 Colonoscopy PAST SURGICAL HISTORY OF 04/2001 aortic valve replacement surgery- mechanical - [facility] - Dr. Esteban REMOVAL OF TONSILS,<12 Y/O Tonsillectomy and adeniodectomy Social History Tobacco Use Smoking status: Former Smokeless tobacco: Never Substance Use Topics Alcohol use: Yes Alcohol/week: 5.0 standard drinks Types: 1 Glasses of Wine (5oz), 1 Cans of Beer (12oz) per week Drug use: Never ALLERGIES No Known Allergies Family History Problem Relation Age of Onset Alzheimer's Disease Father other (Other) Mother possible brain tumor None Brother No Known Problems Son No Known Problems Daughter Significant home meds: Pantoprazole 40 mg, escitalopram 10 mg, losartan 50 mg, amlodipine 2.5?mg pravastatin 40 mg, warfarin ? mg, aspirin 81 Review of Systems Constitutional: Positive for malaise/fatigue. Negative for chills, diaphoresis and fever. HENT: Positive for hearing loss. Negative for congestion. Eyes: Positive for blurred vision. Respiratory: Negative for hemoptysis. Cardiovascular: Positive for claudication. Negative for chest pain, palpitations and leg swelling. Gastrointestinal: Negative for abdominal pain and nausea. Musculoskeletal: Negative for myalgias. Neurological: Positive for dizziness, focal weakness and weakness. Negative for loss of consciousness and headaches. A complete 10 point review of systems was obtained and is otherwise negative Objective Present Condition: BP 139/69 Pulse 66 Temp (Src) 98.1 (Temporal) Resp 22 Ht 5' 8 (1.73m) Wt 174 lb (78.9kg) SpO2 98% BMI 26.46 kg/(m2). O2 Therapy: Nasal Cannula, Liters: 2 Patient Vitals for the past 24 hrs: Pulse BP 07/22/22 0900 (!) 45 123/61 07/22/22 0800 (!) 49 127/59 07/22/22 0700 (!) 53 134/74 07/22/22 0600 (!) 49 154/53 Physical Exam Constitutional: General: He is not in acute distress. HENT: Head: Normocephalic and atraumatic. Nose: Nose normal. Eyes: Extraocular Movements: Extraocular movements intact. Pupils: Pupils are equal, round, and reactive to light. Cardiovascular: Rate and Rhythm: Bradycardia present. Rhythm irregular. Heart sounds: Murmur heard. Comments: Mechanical S2 Pulmonary: Breath sounds: Normal breath sounds. No wheezing. Abdominal: Palpations: Abdomen is soft. Musculoskeletal: Cervical back: Neck supple. Right lower (more content not included)... Normal [facility] CONSULT HNO ID: [id number] Author: Yan Rojas APRN.[facility] Service: Neurosurgery Author Type: Nurse Practitioner Type: Consults Filed: 07/22/2022 8:12 AM Note Text: Attestation signed by Jose Rafael Darden MD at 07/22/2022 9:31 AM I saw the patient examined him and reviewed his multiple CT scans since yesterday. I agree with the note below by Yan Rojas unless stated otherwise. Patient has a stable small intracranial bleed along the left side of the falx as described by radiology. He has no focal neurological deficit that I could detect on my examination this morning. No surgical intervention is required for the intracranial bleed. We will continue to follow and advise with regard to resumption of his anticoagulation. Jose Rafael Darden MD CONSULT: NEUROSURGERY SERVICE Patient Name: George Mcclain Date of : 1935 SERVICE DATE: 07/22/2022 SERVICE TIME: 6:44 AM REASON FOR CONSULT: SDH REQUESTING PHYSICIAN: Akanksha Goodman APRN PRIMARY CARE PHYSICIAN: Bashir Cortez MD Consultation requested by Akanksha Goodman APRN for an opinion regarding SDH. My final recommendations will be communicated back to the requesting physician by way of shared Medical record or letter to requesting physician via US mail. CHIEF COMPLAINT: Fall, dizziness HISTORY OF PRESENT ILLNESS : The patient is a 86 year old male with PMH of A fib, AV Heart valve replacement, HLD, CAD with CABG who presented to [facility] after stroke like symptoms and a fall. The patient reported that he was taking a nap in his chair and when he got up he was dizzy and fell and hit his head. His reported initial significant left facial droop and slurred speech. On CT it was noted that he had minimal SAH and SDH without significant mass effect. CTA was negative for LVO. Patient was transferred in stable condition to [facility] for further care. Patient endorses left lower leg weakness for 2 months, hearing deficit at baseline, vision decrease for several years, intermittent dizziness for years. He denies MOORE, double vision, nausea, vomiting, fever or chills. He denies any current changes in sensation. PAST MEDICAL HISTORY Diagnosis Date Aortic valve disorders Cervicalgia Coronary atherosclerosis Dermatophytosis of nail Diverticulosis of colon (without mention of hemorrhage) Essential hypertension, benign Hemorrhage of rectum and anus Lesion of plantar nerve Lumbago Nonallopathic lesion of cervical region, not elsewhere classified Nonspecific elevation of levels of transaminase or lactic acid dehydrogenase (LDH) Obesity, unspecified Osteoarthrosis, unspecified whether generalized or localized, other specified sites Pure hyperglyceridemia Unspecified hyperplasia of prostate PAST SURGICAL HISTORY Procedure Laterality Date CHOLECYSTECTOMY COLONOSCOP W/ OR W/O RUST SPEC 05/2009 Colonoscopy COLONOSCOP W/ OR W/O RUST SPEC 05/01/2011 Colonoscopy PAST SURGICAL HISTORY OF 04/2001 aortic valve replacement surgery- mechanical - [facility] - Dr. Esteban REMOVAL OF TONSILS,<12 Y/O Tonsillectomy and adeniodectomy FAMILY HISTORY Problem Relation Age of Onset Alzheimer's Disease Father other (Other) Mother possible brain tumor None Brother No Known Problems Son No Known Problems Daughter ALLERGIES No Known Allergies Current Facility-Administered Medications Medication Dose Route Frequency Provider Last Rate Last Admin pravastatin 80 mg tab(s) (PRAVACHOL) 80 mg ORAL/FEEDING TUBE AT BEDTIME Akanksha Goodman APRN.CARE MANAGEMENT COORDINATOR 80 mg at 07/22/22 0000 bisacodyl 10 mg suppository (DULCOLAX) 10 mg RECTAL DAILY PRN Akanksha Bucksar, TOP CUTTER.CARE MANAGEMENT COORDINATOR ondansetron (PF) 4 mg injection (ZOFRAN) 4 mg INTRAVENOUS q 4 H PRN NovN.CARE MANAGEMENT COORDINATOR NaCl 0.9% iv flush bag 20 mL INTRAVENOUS PRN NovN.CARE MANAGEMENT COORDINATOR sodium chloride 0.9 % (flush) 3-5 mL (BD POSIFLUSH) 3-5 mL INTRAVENOUS q 12 H NovN.CARE MANAGEMENT COORDINATOR 5 mL at 07/21/22 2300 NaCl 0.9% iv infusion 50 mL/hr INTRAVENOUS CONTINUOUS , TOP CUTTER.CARE MANAGEMENT COORDINATOR 50 mL/hr at 07/22/22 0030 50 mL/hr at 07/22/22 0030 acetaminophen 650 mg tab(s) (TYLENOL) 650 mg ORAL/FEEDING TUBE q 4 H PRN NovN.CARE MANAGEMENT COORDINATOR Or acetaminophen 650 mg CUP (TYLENOL) 650 mg ORAL/FEEDING TUBE q 4 H PRN Akanksha , TOP CUTTER.CARE MANAGEMENT COORDINATOR Or acetaminophen 650 mg suppository (TYLENOL) 650 mg RECTAL q 4 H PRN AkankshanovN.CARE MANAGEMENT COORDINATOR levETIRAcetam 750 mg tab(s) (KEPPRA) 750 mg ORAL/FEEDING TUBE BID NovN.CARE MANAGEMENT COORDINATOR 750 mg at 07/22/22 0000 labetalol 10-20 mg injection syringe (NORMODYNE) 10-20 mg INTRAVENOUS PRN NovN.CARE MANAGEMENT COORDINATOR Or hydrALAZINE 10-20 mg injection (APRESOLINE) 10-20 mg INTRAVENOUS PRN NovN.CARE MANAGEMENT COORDINATOR potassium chloride ER 20-40 mEq tab(s) (K-DUR, KLOR-CON) 20-40 mEq ORAL/FEEDI (more content not included)... Normal [facility] CONSULT HNO ID: [id number] Author: Minerva Kowalski MD Service: General Surgery Author Type: Physician Type: Consults Filed: 08/11/2022 10:27 PM Note Text: TRAUMA SURGERY CONSULT ARRIVAL DATE: 07/21/2022 ARRIVAL TIME: 10:48 PM CATEGORY: consult INJURY DATE: 07/21/2022 INJURY TIME: Subjective 86 year old male. GCS at Scene was unknown. Pt has a hx of A fib (Amio), AV replacement (2000 on coumadin), CAD s/p CABG who presented to [facility] with stroke like symptoms and subsequent fall. Upon evaluation with CT H and CTA H/N he is found with normal CTA head/neck and minimal SAH w/ minimal SDH along the falx cerebri w/o mass effect. Pt reports he fell sideways after getting up from a sitting position. He landed on the left side of his head/and body. Denies motor/sensory deficit after fall. Denies changes to his vision/ hearing, speech, denies vertigo/confusion, no numbness, weakness. No loss of consciousness after fall, no post-ictal state, no loss of bowel/bladder function. Pt reports strict adherence to anticoagulant regimen. CCAG: afebrile, vitals stable, on 2 L NC. Prior to current events pt was otherwise tolerating a regular diet, voiding spontaneously, and having bowel movements. Pt was without headache, fever/chills, nausea/vomiting chest pain, shortness of breath, or abdominal pain. Denies melena/hematochezia. No recent upper respiratory symptoms, no recent contact with COVID+ patients. Pt ambulates w/o assistance. HPI/CHIEF COMPLAINT: none BRIEF DESCRIPTION OF INJURIES: minimal SAH, minimal SDH along falx cerebri. LAST FLUIDS/MEAL: UNKNOWN CODE STATUS: not discussed ALLERGIES No Known Allergies sucralfate (CARAFATE) 1 gram tablet, Take 1 g by mouth four times daily., Disp: , Rfl: guaifenesin/dextromet horphan (MUCINEX DM ORAL), Take 1,200 mg by mouth twice daily., Disp: , Rfl: pantoprazole DR (PROTONIX) 40 mg tablet, Take 40 mg by mouth twice daily., Disp: , Rfl: escitalopram oxalate (LEXAPRO) 10 mg tablet, Take by mouth once daily., Disp: , Rfl: INV VITAMIN D3 10,000 UNITS OR PLACEBO CAPSULE (IRB 18-310), Take 1 capsule by mouth once daily. For Investigational Drug Use Only, PI: Amaury Melendez MD, PhD., Disp: , Rfl: potassium chloride (KCL-20 ORAL), Take 1 tablet by mouth once daily., Disp: , Rfl: magnesium oxide,aspartate,citr 400 mg magnesium cap, Take 1 capsule by mouth once daily., Disp: , Rfl: losartan (COZAAR) 100 mg tablet, Take 100 mg by mouth once daily., Disp: , Rfl: Multivitamin capsule, Take 1 capsule by mouth once daily., Disp: , Rfl: amLODIPine 2.5 mg ORAL tablet, Take 10 mg by mouth once daily. , Disp: , Rfl: Fenofibric Acid (TRILIPIX) 135 mg ORAL CpDR, Take by mouth., Disp: , Rfl: pravastatin 40 mg ORAL tablet, Take 40 mg by mouth once daily., Disp: , Rfl: terbinafine (LAMISIL) 250 mg ORAL tablet, Take 250 mg by mouth once daily., Disp: , Rfl: valsartan (DIOVAN) 160 mg ORAL tablet, Take 160 mg by mouth once daily., Disp: , Rfl: warfarin (COUMADIN) 1 mg ORAL tablet, Take 1 mg by mouth once daily., Disp: , Rfl: aspirin, enteric coated 81 mg ORAL EC tablet, Take 81 mg by mouth once daily., Disp: , Rfl: atenolol 25 mg ORAL tablet, Take 25 mg by mouth once daily., Disp: , Rfl: DATE OF LAST TETANUS: unknown There is no immunization history on file for this patient. PAST MEDICAL HISTORY Diagnosis Date Aortic valve disorders Cervicalgia Coronary atherosclerosis Dermatophytosis of nail Diverticulosis of colon (without mention of hemorrhage) Essential hypertension, benign Hemorrhage of rectum and anus Lesion of plantar nerve Lumbago Nonallopathic lesion of cervical region, not elsewhere classified Nonspecific elevation of levels of transaminase or lactic acid dehydrogenase (LDH) Obesity, unspecified Osteoarthrosis, unspecified whether generalized or localized, other specified sites Pure hyperglyceridemia Unspecified hyperplasia of prostate PAST SURGICAL HISTORY Procedure Laterality Date CHOLECYSTECTOMY COLONOSCOP W/ OR W/O RUST SPEC 05/2009 Colonoscopy COLONOSCOP W/ OR W/O RUST SPEC 05/01/2011 Colonoscopy PAST SURGICAL HISTORY OF 04/2001 aortic valve replacement surgery- mechanical - [facility] - Dr. Esteban REMOVAL OF TONSILS,<14 Y/O Tonsillectomy and adeniodectomy Social History Tobacco Use Smoking status: Former Smokeless tobacco: Never Substance Use Topics Alcohol use: Yes Alcohol/week: 5.0 standard drinks Types: 1 Glasses of Wine (5oz), 1 Cans of Beer (12oz) per week Drug use: Never FAMILY HISTORY Problem Relation Age of Onset Alzheimer's Disease Father other (Other) Mother possible brain tumor None Brother No Known Problems Son No Known Problems Daughter ROS: Pain: none Constitutional: negative Eye/Ear/Nose: negative Respiratory: no cough, sneeze, shortness of breath, respiratory therapy Cardiovascular: no chest pain, syncope, cold extremities, cyanosis GI/Liver/Biliary: no (more content not included)... Normal [facility] CONSULT PROGon 07-22-2022 CONSULT PROG HNO ID: [id number] Author: Lizbet Orta MD Service: General Surgery Author Type: Physician Type: Consult Progress Note Filed: 07/22/2022 10:41 AM Note Text: Trauma Surgery Progress Note SERVICE DATE: 07/22/2022 Trauma Service Pager: For questions or concerns Mon-Fri 6a-5p please page [phone]. After 5pm and on Weekends and Holidays, please page [phone] if in ICU or [phone] if on RNF. SUBJECTIVE: Doing well this morning. No issues with neuro exam over night. Denies any new pain. Does have some chronic neck pain that is unchanged. OBJECTIVE: Vitals: Temp (24hrs), Av.8 ?C (98.2 ?F), Min:36.7 ?C (98.1 ?F), Max:36.8 ?C (98.2 ?F) BP 134/74 Pulse (!) 53 Temp 36.7 ?C (98.1 ?F) (Temporal) Resp 20 SpO2 97% O2 Therapy: Nasal Cannula IANDO: Date 07/21/22699 - 07/22/2265807/22/22699 - 07/23/22 0659 Shift 4700-2087 7601-8129 6964-1615 24 Hour Total 5047-4753 4507-6172 3959-4822 24 Hour Total INTAKE IV 383 383 Volume (mL) (NaCl 0.9% iv infusion) 383 383 Shift Total 383 383 OUTPUT Urine 375 375 Void (ml) 375 375 Shift Total 375 375 Weight (kg) MEDICATIONS Current Facility-Administered Medications Medication Dose Route Frequency pravastatin 80 mg tab(s) (PRAVACHOL) 80 mg ORAL/FEEDING TUBE AT BEDTIME bisacodyl 10 mg suppository (DULCOLAX) 10 mg RECTAL DAILY PRN NaCl 0.9% iv flush bag 20 mL INTRAVENOUS PRN sodium chloride 0.9 % (flush) 3-5 mL (BD POSIFLUSH) 3-5 mL INTRAVENOUS q 12 H NaCl 0.9% iv infusion 50 mL/hr INTRAVENOUS CONTINUOUS acetaminophen 650 mg tab(s) (TYLENOL) 650 mg ORAL/FEEDING TUBE q 4 H PRN Or acetaminophen 650 mg CUP (TYLENOL) 650 mg ORAL/FEEDING TUBE q 4 H PRN Or acetaminophen 650 mg suppository (TYLENOL) 650 mg RECTAL q 4 H PRN levETIRAcetam 750 mg tab(s) (KEPPRA) 750 mg ORAL/FEEDING TUBE BID labetalol 10-20 mg injection syringe (NORMODYNE) 10-20 mg INTRAVENOUS PRN Or hydrALAZINE 10-20 mg injection (APRESOLINE) 10-20 mg INTRAVENOUS PRN potassium chloride ER 20-40 mEq tab(s) (K-DUR, KLOR-CON) 20-40 mEq ORAL/FEEDING TUBE PRN Or potassium chloride iv piggyback 20 mEq/100 mL 20 mEq INTRAVENOUS PRN magnesium sulfate iv piggyback in sterile water 2 g 50 mL 2 g INTRAVENOUS PRN phosphorus 500 mg tab(s) (K PHOS NEUTRAL) 500 mg ORAL/FEEDING TUBE PRN(NO DISPENSE) calcium gluconate 4 g in NaCl 0.9% 250 mL 4 g INTRAVENOUS PRN sodium chloride 0.9 % (flush) 2-10 mL (BD POSIFLUSH) 2-10 mL INTRAVENOUS DIRECTED PRN And perflutren lipid microspheres 1.1 mg/mL 1.3 mL injection (DEFINITY) 1.3 mL INTRAVENOUS DIRECTED PRN Labs: Recent Labs 07/22/22 0223 NA 141 K 3.9 CHLOR 106* CO2 26 BUN 15 CREAT 0.83 GLUC 93 ANION 9 CA 8.8 MG 1.8 P 3.4 WBC 9.97 HB 12.7* HCT 38.3* PLT 197 INR 1.2 PHYSICAL EXAM: Genl: Appears age appropriate. No acute distress. Resting comfortably. Head/Face: Normocephalic. Eyes: EOMI. Sclera not icteric, not injected Neck: No mid-line masses. C-spine non-tender. Resp: Lung sounds are clear bilat. No wheezes. No rales. Breathing is non-labored on 2L NC CVS: RRR as above; 2+ pulses at RA, DP, PT bilat. GI: Abdomen is soft, non-tender, not distended. Bowel sounds normoactive. No peritonitis. MSK: Extremities without clubbing, cyanosis, edema. Normal ROM x 4. Skin: Warm and dry. Not jaundiced. Neuro: AANDOx3. Strength and sensation normal except some weakness in the L quadriceps muscle group. REEVES. GCS15. Psych: Normal mood. Normal affect. Appropriate insight into current situation. ASSESSMENT AND PLAN: 86 year old male s/p fall while standing up with suspected stroke as etiology Imaging performed: CT H/N, CXR, CTA H/N (07/22) Traumatic Injuries: SAH and SDH Operations/Procedures : 1. None Care Plan: Fall, possible stroke -Pending MRI brain to evaluate further -Further work up per neuro ICU -Check pelvis x-ray to rule out occult injury. Tertiary exam otherwise negative. If PXR negative no other trauma recommendations or management needed. Intracranial hemorrhage -Likely due to fall. Less likely due to aneurysm as CTA H/N was negative -[facility] -[facility] -Planning non-operative management at this time PPX: DVT: SCDs, holding chemoprophylaxis Ulcer: Not indicated Vit D level if > 65 yo: Yes Consulted Services: Trauma Neurosurgery Dispo Planning: PT/OT recs when appropriate. Case management following. Follow Up Needs: Per primary Staff Trauma Surgeon: Dr. Orta SIGNATURE: Camron Nam DO PATIENT NAME: George Mcclain DATE: July 22, 2022 TIME: 8:18 AM Pager: see below Trauma Service Pager: For questions or concerns Thu-Thu 6a-5p please page [phone]. After 5pm and on Weekends and Holidays, please page [phone] if in ICU or [phone] if on RNF. Portions of text from this note were copied as some of the information may not have changed. All relevant information was reviewed (more content not included)... Normal [facility] CT BRAIN WO IVCONon 07-22-20 CT BRAIN WO IVCON * * *Final Report* * * DATE OF EXAM: Jul 22 2022 4:14AM [facility] 0504 - CT BRAIN WO IVCON / PROCEDURE REASON: Subdural hematoma * * * * Physician Interpretation * * * * EXAMINATION: CT BRAIN WO IVCON CLINICAL HISTORY: Subdural hematoma TECHNIQUE: Serial axial images without IV contrast were obtained from the vertex to the foramen magnum. MQ: [id number]_3 CT Radiation dose: Integrated Dose-Length Product (DLP) for this visit = 804 mGy*cm CT Dose Reduction Employed: Iterative recon COMPARISON: CT brain from 07/21/2022 FINDINGS: The tiny hemorrhage which is likely subarachnoid along the falx cerebri in the left frontal region is stable. Minimal irregular high density of the falx cerebri elsewhere which could be related to calcification versus minimal subdural hematoma is also unchanged. No new extra-axial fluid collection. No mass effect. 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 There is no evidence of a mass lesion, parenchymal hemorrhage, or acute infarction. The carter-white matter differentiation is preserved. There is prominence of the ventricles and cerebral sulci in keeping with cerebr mild l atrophy. No extra-axial fluid collections are present. The basal cisterns are patent. The calvarium is intact. Imaged paranasal sinuses and mastoid air spaces are clear. Reformatted images support the above findings. IMPRESSION: Stable exam. Stenographic Court Reporter: LIVIER Transcribe Date/Time: Jul 22 2022 5:45A Dictated by : JADON FRITZ MD This examination was interpreted and the report reviewed and electronically signed by: JADON FRITZ MD on Jul 22 2022 5:48AM EST [id number] Normal [facility] Cholesterol in LDL Direct as say [Mass/Vol]on 07-22-2022 Cholesterol in LDL [Mass/Vol] 93 mg/dL Normal <100 [facility] Comment on above: Order Comment: Speci men Type: BLOOD SPECIMEN Ordering Facility: [facility] Address: [address] [place] [phone] Result Comment: <100 mg/dL, Optimal 100-129 mg/dL, Near optimal/above optimal 130-159 mg/dL, Borderline high 160-189 mg/dL, High >189 mg/dL, Very high Secondary prevention optimal LDL Cholesterol levels are recommended to be < 70 mg/dL Performed By: #### 5 7021-8 #### [facility] CLIA [id number] [address] [place] Cholesterol in VLDL [Mass/Vol] 70 mg/dL High <30 [facility] Comment on above: Order Comment: Speci men Type: BLOOD SPECIMEN Ordering Facility: [facility] Address: [place] [address] Performed By: #### 5 7021-8 #### [facility] CLIA [id number] [address] [place] [id number] [place] ECG COMPLETEon 07-22-2022 ECG COMPLETE Ventricular Rate : 5 2 BPM QRS Duration : 132 ms Q-T Interval : 562 ms QTC Calculation(Bazett) : 522 ms Calculated R [place] : -61 degrees Calculated T [place] : -18 degrees ATRIAL FIBRILLATION WITH SLOW VENTRICULAR RESPONSE LEFT AXIS DEVIATION RIGHT BUNDLE 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) ABNORMAL ECG WHEN COMPARED WITH ECG OF 14-APR-2001 05:10, ATRIAL FIBRILLATION HAS REPLACED SINUS RHYTHM RIGHT BUNDLE BRANCH BLOCK IS NOW PRESENT QUESTIONABLE CHANGE IN INITIAL FORCES OF INFERIOR LEADS Confirmed by MD RUDOLPH YASSAR ([id number]) on 07/23/2022 4:15:58 PM NAME : GEORGE MCCLAIN PID : [id number] : 1935 Gender : Male Race : ORD : [id number] Procedure Date : Jul 22 2022 07:10:59 Edit Date : Jul 23 2022 16:16:01 Diagnosis: ATRIAL FIBRILLATION WITH SLOW VENTRICULAR RESPONSE LEFT AXIS DEVIATION RIGHT BUNDLE 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 3208 Overread By : MD RUDOLPH YASSAR Edited By : MD RUDOLPH YASSAR Referred By : BANDAR REYES Acquired by : MISAEL DALE [facility] ECHO WITH AGITATED SALINE CO NTRASTon 07-22-2022 ECHO WITH AGITATED SALINE CONTRAST Echocardiography Report: Transthoracic Echo [facility] Date of service: 07/22/2022 8:29:24 AM [facility] Ordering physician: AKANKSHA GOODMAN Indication: Stroke Technologist: Kary Michael [facility] Interpreting physician: Mario Mcclellan MD PATIENT: Name: GEORGE MCCLAIN : 1935 Age: 86 years Gender: M History of valvular heart disease, arrhythmia and hypertension. Previous cardiovascular interventions: Aortic valve replacement Primary rhythm: atrial fib. Height: 172.70 cm BSA: 2.01 m Weight: 84.10 kg BMI: 28.2 kg/m Heart rate 48 bpm Blood pressure 154/53 mmHg Technically difficult exam due to body habitus and suboptimal positioning. Color Doppler was utilized to interrogate the cardiac valves assessed and spectral Doppler was utilized to determine the flow velocities and pressure gradients reported in this exam. MEASUREMENTS: Value Indexed Normal Max aortic dimension 3.9 cm Ao < 3.8 Left atrial volume 118 ml (biplane A-L) 59 ml/m Karoline <= 34 LV ID (diastole) 4.3 cm (2D) 2.14 cm/m LV ID (systole) 3.0 cm (2D) 1.49 cm/m IVS, leaflet tips 1.3 cm (2D) Posterior wall thickness 1.1 cm (2D) Left ventricular mass 185 g (2D) 92 g/m LV stroke volume 58 ml (2D biplane) LVOT stroke volume 83 ml 42 ml/m LV end diastolic volume 100 ml (2D biplane) 49.6 ml/m 34<=EDVi<75 LV end systolic volume 42 ml (2D biplane) 20.9 ml/m Ejection Fraction 58 % (2D biplane) EF > 52 FINDINGS: LEFT VENTRICLE The left ventricle is normal in size. There is mild septal left ventricular hypertrophy. Left ventricular systolic function is normal globally. Indeterminate left ventricular diastolic dysfunction due to AF. Definity contrast used for endocardial border detection. Wall Motion: All scored segments are normal. RIGHT VENTRICLE The right ventricle is not optimally visualized. On limited views, the right ventricle appears grossly normal in size and systolic function. Estimated right ventricular systolic pressure is 45 mmHg consistent with mild pulmonary hypertension. Estimated right atrial pressure is 8 mmHg based on IVC assessment. LEFT ATRIUM The left atrial cavity is severely dilated. RIGHT ATRIUM The right atrial cavity is dilated. Inferior Vena Cava: The inferior vena cava appears dilated measuring 2.5 cm. The vessel decreases greater than 50 percent with inspiration. MITRAL VALVE There is moderate mitral annular calcification observed anterior and posterior. There is mild (1+) mitral valve regurgitation. There is mild thickening. TRICUSPID VALVE The tricuspid valve leaflets are structurally normal. There is mild (1+) tricuspid valve regurgitation. AORTIC VALVE [place]. Lorenzo prosthetic valve. There is trace aortic valve regurgitation. The peak gradient is 28 mmHg (peak velocity = 262.3 cm/s). The mean gradient is 12 mmHg. The LVOT mean velocity is 89.7 cm/s. The LVOT diameter is 1.8 cm. The aortic VTI is 61.4 cm. The mean velocity in the aortic valve is 155.2 cm/s. The dimensionless valve index is 0.53. The LVOT stroke volume index is 42 ml/m . PULMONIC VALVE The pulmonic valve cusps are structurally normal. There is no pulmonic valve regurgitation. AORTA The visualized aorta is borderline dilated. Measurements - Sinus: 3.0 cm. Mid ascending aorta 3.9 cm. PULMONARY ARTERIES The pulmonary arteries are unseen or not interrogated. INTERATRIAL SEPTUM There is no evidence of intracardiac shunting as detected by Doppler. PERICARDIUM There is no pericardial effusion. CONCLUSIONS: - Technically difficult exam due to body habitus and suboptimal positioning. - Exam indication: Stroke - The left ventricle is normal in size. There is mild septal left ventricular hypertrophy. Left ventricular systolic function is normal. EF = 58 5% (2D biplane) Definity contrast used for endocardial border detection. Indeterminate left ventricular diastolic dysfunction due to AF. - The right ventricle is not optimally visualized. On limited views, the right ventricle appears grossly normal in size and systolic function. - The visualized aorta is borderline dilated with a maximal dimension of 3.9 cm. - St. Lorenzo prosthetic aortic valve. There is trace aortic valve regurgitation. The peak gradient is 28 mmHg, the mean gradient is 12 mmHg and the dimensionless valve index is 0.53. - The patient has not had a prior CC echocardiographic exam for comparison. * * * Final * * * [facility] : [id number] Normal [facility] Ethanol SerPl-mCncon 022 Ethanol [Mass/Vol] 44 mg/dL High <11 [facility] Comment on above: Order Comment: Speci men Type: BLOOD SPECIMEN Ordering Facility: [facility] Address: [address] [place] [address] [place] [address] Performed By: #### 5 643-2 #### [facility] CLIA [id number] [address] [place] [id number] [facility] HISTORY PHYSICALon HISTORY PHYSICAL HNO ID: [id number] Author: Akanksha Goodman APRN.CARE MANAGEMENT COORDINATOR Service: Neurology ICU Author Type: Nurse Practitioner Type: HANDP Filed: 07/22/2022 12:46 AM Note Text: Attestation signed by Tha Nickerson MD at 07/22/2022 11:30 AM THE NEURO ICU MANAGEMENT OF THIS PATIENT WAS DISCUSSED WITH THE NSGY TEAM I have reviewed the progress note obtained and documented by the advanced practice provider . I have personally seen and examined the patient and discussed their management with the KATHYA. I reviewed the KATHYA note and agree with the documented findings and plan of care. I have repeated the examination and confirm the findings except as documented. PATIENT PROBLEMS I REVIEWED, REVISED AND/OR INITIATED: The care of this patient required my full attention and direct personal management of: Principal Problem: SDH (subdural hematoma) Active Problems: HTN (hypertension) Subarachnoid hemorrhage following injury, no loss of consciousness (HCC) Facial droop Dysarthria Fall Current use of long 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 Atrial fibrillation (HCC) QT prolongation Bradycardia Resolved Problems: * No resolved hospital problems. * ==== STAFF COORDINATION OF CRITICAL CARE [facility] Staff Physician note of personal involvement in Care The patient is critically ill because of imminent risk of acute brain damage and continues to require intensive support and observation. This patient has a high probability of sudden, clinically significant deterioration, which requires the highest level of physician preparedness to intervene urgently. I managed/supervized life or organ supporting interventions that required frequent physician assessment. I devoted my full attention to the direct care of this patient for the amount of time indicated below. Time I spent with family or surrogate(s) is included only if the patient was incapable of providing the necessary information or participating in medical decision making. Time devoted to teaching or to any procedures I billed separately is not included. CRITICAL CARE: I personally spent - minutes of critical care time involved in the care of this patient. 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 Plan of care discussed with: Provider, RN, Patient. Tha Nickerson MD Staff, Neurointensive Care Neurological [place] Date of Service: 07/22/2022 Time of Service: 11:29 AM This is an electronically created document. If printed, please do not remove from the chart or modify printed copy. SERVICE DATE: 07/22/2022 SERVICE TIME: 12:44 AM NEUROLOGICAL INTENSIVE CARE UNIT HISTORY AND PHYSICAL (STROKE CARE PATH) REASON FOR STROKE EVALUATION: Dysarthria and left facial droop REASON FOR NEUROLOGICAL ICU ADMISSION: SAH/SDH Stroke Mechanism: METRICS: Initial NIHSS Score: 2 Hemorrhagic Stroke Type?: Intracranial Hemorrhage De Coma Scale Totals (Calculated): 15 Total ICH Score (0-6): 1 Date Patient Last Known Well: 07/21/22 Date of Patient Arrival at THIS Facility: 07/21/22 Time of Patient Arrival at THIS Facility: 2058 Pre-admission: Patient Taking Therapeutic Dose of Anticoagulation?: Warfarin Is Warfarin Coagulation Reversal Needed?: INR > or equal to 1.4, Coag Reversal Given Reversal Agent Used: Vitamin K 10mg IVPB;PCC (given at [facility]. INR 2.8) Premorbid Modified Maria E Score: 0=0 - No symptoms at all Baseline Functional Status (i.e. 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 after a ground level fall. He had taken a nap in his chair after waking up he felt dizzy(unable to describe sensation) stumbled and fell to the ground hitting his head on a table. His witnessed the fall. She reports that he had a left facial droop with left sided weakness and slurred speech at the time of the event. She called EMS. On arrival to [place] he was noted to have an NIHSS of 4 with left facial droo (more content not included)... Normal [facility] HbA1c (Bld)on 07-22-2022 Average glucose Estimated from glycated hemoglobin (Bld) [Mass/Vol] 140 mg/dL Normal [facility] Comment on above: Order Comment: Speci men Type: BLOOD SPECIMEN Ordering Facility: [facility] Address: [address] [place] [phone] Result Comment: eAG: (Estimated average glucose) is a calculated value from HgbA1c and is field sales representative of the average blood glucose level in the last 2-3 month period. Performed By: #### 5 7021-8 #### [facility] CLIA [id number] [address] [place] [address] [place] HbA1c (Bld) [Mass fraction] 6.5 % High 4.3-5.6 [facility] Comment on above: Order Comment: Ramy wu Type: BLOOD SPECIMEN Ordering Facility: [facility] Address: [address] [place] [address] Result Comment: Amer [place] Diabetes Association guidelines indicate that patients with HgbA1c in the range 5.7-6.4% are at increased risk for development of diabetes, and intervention by lifestyle modification may be beneficial. HgbA1c greater or equal to 6.5% is considered diagnostic of diabetes. Performed By: #### 5 7021-8 #### [facility] CLIA [id number] [address] [facility] Lipid 1996 panelon 2 Cholesterol [Mass/Vol] 197 mg/dL Normal <200 [facility] Comment on above: Order Comment: Ramy jazmin Type: BLOOD SPECIMEN Ordering Facility: [facility] Address: [address] [place] [address] Result Comment: <200 mg/dL, Desirable 200-239 mg/dL, Borderline high >239 mg/dL, High Performed By: #### 5 643-2 #### [facility] CLIA [id number] [address] Cholesterol in HDL [Mass/Vol] 34 mg/dL Low >39 [facility] Comment on above: Order Comment: Ramy wu Type: BLOOD SPECIMEN Ordering Facility: [facility] Address: [address] [place] [address] Result Comment: 40-5 9 mg/dL, Acceptable >59 mg/dL, High: Negative risk factor for coronary heart disease <40 mg/dL, Low: Positive risk factor for coronary heart disease Performed By: #### 5 643-2 #### [facility] CLIA [id number] [address] [place] Cholesterol in LDL [Mass/Vol] Normal [facility] Comment on above: Order Comment: Ramy wu Type: BLOOD SPECIMEN Ordering Facility: [facility] Address: [address] [place] [address] Result Comment: Unab le to calculate due to increased Triglycerides. See LDL-Chol, Direct. Performed By: #### 5 643-2 #### [facility] CLIA [id number] [address] Cholesterol in LDL/Cholesterol in HDL [Mass ratio] Normal [facility] Comment on above: Order Comment: Speci men Type: BLOOD SPECIMEN Ordering Facility: [facility] Address: [address] [place] [address] Result Comment: Unab le to calculate due to elevated Triglycerides. Reference: 1. National Cholesterol Education Program ATP III Guideline At-A-Glance Quick Desk Reference: National Heart, Lung, and Blood [place]. National Institutes of Health. 2001: NIH Publication No. 01-3305. 2. An International Atherosclerosis Society position paper: global recommendations for the management of dyslipidemia: executive summary, Atherosclerosis. 2014: 232(2):410-413. Performed By: #### 5 643-2 #### [facility] CLIA [id number] [address] Cholesterol in VLDL [Mass/Vol] Normal [facility] Comment on above: Order Comment: Speci jazmin Type: BLOOD SPECIMEN Ordering Facility: [facility] Address: [address] [place] [address] Result Comment: Unab le to calculate due to increased Triglycerides. See LDL-Chol, Direct. Performed By: #### 5 643-2 #### [facility] CLIA [id number] [address] Cholesterol non HDL [Mass/Vol] 163 mg/dL High <130 [facility] Comment on above: Order Comment: Speci jazmin Type: BLOOD SPECIMEN Ordering Facility: [facility] Address: [address] [place] [address] Result Comment: <130 mg/dL, Optimal 130-159 mg/dL, Near optimal/above optimal 160-189 mg/dL, Borderline high 190-219 mg/dL, High >219 mg/dL, Very high Secondary prevention optimal non HDL Cholesterol levels are recommended to be <100 mg/dL Performed By: #### 5 643-2 #### [facility] CLIA [id number] [address] Cholesterol.total/Cholester ol in HDL [Mass ratio] 5.79 {ratio} High <5.10 [facility] Comment on above: Order Comment: Ramy jazmin Type: BLOOD SPECIMEN Ordering Facility: [facility] Address: [address] [address] Performed By: #### 5 643-2 #### [facility] CLIA [id number] [address] FASTING TIME 14 hrs Normal [facility] Comment on above: Order Comment: Speci men Type: BLOOD SPECIMEN Ordering Facility: [facility] Address: [address] [address] Performed By: #### 5 643-2 #### [facility] CLIA [id number] [address] Triglyceride [Mass/Vol] 432 mg/dL High <150 [facility] Comment on above: Order Comment: Speci men Type: BLOOD SPECIMEN Ordering Facility: [facility] Address: [address] [address] Result Comment: <150 mg/dL, Normal 150-199 mg/dL, Borderline high 200-499 mg/dL, High >499 mg/dL, Very high Performed By: #### 5 643-2 #### [facility] CLIA [id number] [address] [place] MRI BRAIN WO IVCONon 022 MRI BRAIN WO IVCON * * *Final Report* * * DATE OF EXAM: Jul 22 2022 1:56PM [facility] 0294 - MRI BRAIN WO IVCON / PROCEDURE REASON: Stroke, follow up * * * * Physician Interpretation * * * * EXAMINATION: MRI BRAIN WO IVCON CLINICAL HISTORY: Stroke, follow up TECHNIQUE: Routine noncontrast MRI protocol including diffusion images. MQ: MRBWO_2 COMPARISON: CT head 07/22/2022 RESULT: Acute Change: There is no evidence of an acute intracranial process. Hemorrhage: There is curvilinear susceptibility artifact in the interhemispheric fissure, corresponding to the known subarachnoid hemorrhage. There is old small hemorrhage in the central scot and right lateral parietal lobe. Mass Lesion/ Mass Effect: No evidence of an intracranial mass or extra-axial fluid collection. No significant mass effect. Chronic Change: Scattered patchy areas of increased T2 and FLAIR signal are present in the supratentorial white matter which is a nonspecific finding but likely represents mild chronic microvascular ischemia. Right inferior posterior temporal encephalomalacia. Parenchyma: There is moderate to severe generalized parenchymal volume loss. The brain parenchyma is otherwise within normal limits of signal intensity and morphology. Ventricles: Ventriculomegaly corresponds to the degree of parenchymal volume loss. Skull Base: Hypothalamic and pituitary region are grossly normal. Craniocervical junction is normal. No significant marrow replacement process. Vasculature: Major intracranial arterial structures, and dural venous sinuses show typical flow void, suggesting patency by spin echo criteria. Other: The visualized paranasal sinuses and mastoid air cells are clear. The orbits and extracranial soft tissues are unremarkable. IMPRESSION: Overall stable mild subarachnoid hemorrhage in the left interhemispheric fissure. No other acute intracranial findings. Stenographic Court Reporter: LIVIER Transcribe Date/Time: Jul 22 2022 2:21P Dictated by : CARLOS HAN MD This examination was interpreted and the report reviewed and electronically signed by: CARLOS HAN MD on Jul 22 2022 2:32PM EST [id number] N Normal [facility] Magnesium SerPl-mCncon 07-22 Magnesium [Mass/Vol] 1.8 mg/dL Normal 1.7-2.3 [facility] Comment on above: Order Comment: Ramy wu Type: BLOOD SPECIMEN Ordering Facility: [facility] Address: [address] [place], [place] [id number] Performed By: #### 5 7021-8 #### [facility] CLIA [id number] 1 [place] [address] [place] PT panel Coag (PPP)on 2021 INR Coag (PPP) [Relative time] 1.2 {INR} Normal 0.9-1.3 [facility] Comment on above: Order Comment: Ramy wu Type: BLOOD SPECIMENOrdering Facility: [facility] Address: [address] [id number] Result Comment: Shruthi min K Antagonist (VKA) Therapeutic Range: INR 2 to 3 (Target INR of 2.5) Note: For patients treated with VKA drugs, such as warfarin, the [employer] 2012 Guideline recommends a therapeutic INR range of 2 to 3 (target INR of 2.5). This recommendation includes high-risk patients with antiphospholipid syndrome with previous arterial or venous thromboembolism, current-generation mechanical or bioprosthetic aortic heart valve replacement. Note: Patients with mechanical aortic valve replacement and additional risk factors for thromboembolic events (atrial fibrillation, previous thromboembolism, LV dysfunction, hypercoagulable conditions) or an older generation mechanical AVR (i.e., ball in-Cage) or any mechanical MVR should have a INR therapeutic range of 2.5 to 3.5 (target INR of 3). Kai GH, et al. Chest 2012, 141:7S-47S Valerie RA, et al. [facility] 2017, 70: 252-289 Performed By: #### 3 4528-0, 38121-6 ####[facility] [id number] [address] STATES OF [facility] PT Coag (PPP) [Time] 12.5 s Normal 9.7-13.0 [facility] Comment on above: Order Comment: Specoleg wu Type: BLOOD SPECIMENOrdering Facility: [facility] Address: [address] [place] [address] Performed By: #### 3 4528-0, 28889-0 ####[facility] [id number] [address] [place] Phosphate SerPl-mCncon 07-22 Phosphate [Mass/Vol] 3.4 mg/dL Normal 2.7-4.8 [facility] Comment on above: Order Comment: Ramy wu Type: BLOOD SPECIMEN Ordering Facility: [facility] Address: [address] [place] [address] Performed By: #### 5 643-2 #### [facility] CLIA [id number] [address] [place] SARS-CoV-2 RNA Resp Ql FRANCI+p robeon 11-29-2022 SARS-CoV-2 (COVID-19) RNA FRANCI+probe Ql (Resp) COVID 19 RESULT: SARS-CoV-2 (Agent of COVID-19) Not Detected by RT-PCR or equivalent method. This test has been authorized by FDA under an Emergency Use Authorization (EUA). Normal [facility] Comment on above: Performed By: #### 9 4500-6 ####[facility] [id number] [address] [employer] PCRon 2 S. aureus and MRSA panel FRANCI+probe (Nose) Abnormal Negative [facility] Comment on above: Order Comment: Speci men Type: BLOOD SPECIMEN Ordering Facility: [facility] Address: [address] [place], [place] [phone] Result Comment: Posi tive for Staphylococcus aureus by PCR. Negative for MRSA by PCR Performed By: #### 5 7021-8 #### [facility] CLIA [id number] [address] [place] THERAPY NTon 07-22-2022 THERAPY NT HNO ID: [id number] Author: Latoya Hopson CCC-TEST DEVELOPMENT ENGINEER Service: Speech/Swallow Author Type: Speech Language Pathologist Type: Therapy (PT/OT/Speech/Resp) Filed: 07/22/2022 10:52 AM Note Text: Speech Therapy Speech Evaluation SERVICE DATE: 07/22/2022 SERVICE TIME: 1030 to 1045 ROOM: [place] [address] IMPRESSION: Communication deficits identified: Cognitive deficits Nursing Recommendations: Reinforce use of cognitive strategies Recommended Discharge Disposition: Continued Skilled Speech Therapy - Physical Therapy and Occupational Therapy pending Current Hospital Course: 07/21 CT Brain: minima acute SAH and questionable minimal subdural hemorrhage along falx cerebri Reason for Hospital Admission: Transfer from [place] post fall Rehabilitation Precautions: Cognitive Linguistics Deficits;Hearing Deficits Reason for Speech Therapy Consult: SAH/SDH Relevant Past Medical History: hearing loss, macular degeneration Response to Therapy Interventions: Cognitive Deficits, Good Participation in activities, Hard of Hearing Continue skilled TEST DEVELOPMENT ENGINEER services due to : Education / training needs, Safety concerns Speech Therapy Problem List: Cognitive-Linguistic Impairment 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 Current Status Oral Hygiene: Clear, dry oral cavity Dentition: Retains Natural Dentition Current Feeding Method: Oral Current Diet Textures: Regular Consistency;Thin Liquids IDDSI Level 0 Current Level Of Communication: Verbal Current Management Of Secretions: Able to expectorate adequately Oral Motor Exam: Within Functional Limits Speech/Cognition/Lang uage Speech Production: Within Functional Limits Expressive and Receptive Language: Within Functional Limits Cognition Cognitive Status: patient reported his took his hearing aids home, results may not accurately reflect cognitive status Memory Deficits: Immediate, Short Term Executive Function Deficits: Problem Solving, Safety Awareness The Cognitive Log (Cog-Log) is designed to be a quick quantitative measure of cognition status for use at the bedside with rehabilitation inpatients. It is intended for individuals who have achieved consistent accurate orientation, such as measured by the Orientation Log (O-Log). The Cog-Log can be used to document cognitive progress on a daily basis. All items are scored from 0 to 3 for a total possible score of 30. 3 = correct spontaneous response 2 = correct upon logical cueing (e.g., That was yesterday, so today must be...) 1 = correct upon multiple choice or phonemic cueing 0 = incorrect despite cueing, inappropriate response, or unable to respond Stimulus Response/Score Date 2/3 Time 0/3 Name of Hospital 33 Repeat Address 03 (all partial responses) 20-1 3/3 Months Reversed 1/3 (increased time and multiple self corrections) 30 Seconds 3/3 Usiy-Oqfj-Bufo 0/3 Go/No-Go 3/3 Address Recall 1 Total Patient /Caregiver Goals: Improve Cognition Goals for Plan of Care: Goals: COGNITION: Patient will demonstrate knowledge of taught compensatory strategies for functional cognitive-linguistic skills Cognitive Goals: Patient will improve functional auditory memory skills to 90% accuracy given minimal cues so that the patient may apply safety precautions for personal welfare. Patient will demonstrate use of simple problem solving skills with 90% accuracy given minimal cues so that the patient may participate in personal discharge planning. Speech Rehab Potential: Good Patient will be discontinued from speech therapy when no further skilled needs are identified in this setting. PLAN: ST Frequency: 2 times per week Treatment Interventions: Cognitive-Linguistic Management Plan for next visit: Cognitive Linguistic Strategies Plan of Care Developed with: Patient Results and Recommendations Discussed With: Patient;Physician;Bekah se TREATMENT INTERVENTIONS: Therapy Diagnosis: Cognitive deficits following cerebral infarction Interventions Provided: Speech Language Eval (03049) $ Speech Language Eval (01243) Billed Units: 1 unit Training and education provided in: Cognitive Linguistic Strategies The following therapeutic skills were used:: Discharge planning, Education on role of discipline / importance of activity, Verbal cuing Skilled Treatment Time (minutes): 15 Home Environment Prior Functional Level: Within Functional Limits Patient Lives With: Spouse Prior Swallowing Function/Diet Textures: Regular Consistency;Thin Liquids IDDSI Level 0 Please see discipline specific clinical documentation flowsheet for complete details for this therapy evaluation/treatment. SIGNATURE: Latoya Hopson CCC-TEST DEVELOPMENT ENGINEER PATIENT NAME: George Mcclain DATE: July 22, 2022 TIME: 10:50 AM Normal [facility] TOX SCREEN ROUT URon 07-22- 022 Amphetamines Confirm (U) [Mass/Vol] Negative Normal Negative [facility] Comment on above: Order Comment: Speci men Type: BLOOD SPECIMEN Ordering Facility: [facility] Address: [address] [place] [address] Result Comment: Cuto ff threshold at 1000 ng/mL. Performed By: #### 5 7021-8 #### [facility] CLIA [id number] [address] [place] BARBITURATES, URINE Negative Normal Negative [facility] Comment on above: Order Comment: Speci men Type: BLOOD SPECIMEN Ordering Facility: [facility] Address: [address] [place] [address] Result Comment: Cuto ff threshold at 200 ng/mL. Performed By: #### 5 7021-8 #### [facility] CLIA [id number] 1 [place] [address] [place] BENZODIAZEPINES, UR Negative Normal Negative [facility] Comment on above: Order Comment: Speci men Type: BLOOD SPECIMEN Ordering Facility: [facility] Address: [address] [place] [address] Result Comment: Cuto ff threshold at 200 ng/mL. Performed By: #### 5 7021-8 #### [facility] CLIA [id number] 1 [place] [address] [place] CANNABINOIDS,URINE Negative Normal Negative [facility] Comment on above: Order Comment: Speci men Type: BLOOD SPECIMEN Ordering Facility: [facility] Address: [address] [address] Result Comment: Cuto ff threshold at 50 ng/mL. Performed By: #### 5 7021-8 #### [facility] CLIA [id number] [address] Cocaine Ql (U) Negative Normal Negative [facility] Comment on above: Order Comment: Speci men Type: BLOOD SPECIMEN Ordering Facility: [facility] Address: [address] [address] Result Comment: Cuto ff threshold at 300 ng/mL. Performed By: #### 5 7021-8 #### [facility] CLIA [id number] [address] Ethanol (U) [Mass/Vol] 71 mg/dL High <11 [facility] Comment on above: Order Comment: Speci men Type: BLOOD SPECIMEN Ordering Facility: [facility] Address: [address] [address] Performed By: #### 5 7021-8 #### [facility] CLIA [id number] [address] Opiates Screen Ql (U) Negative Normal Negative [facility] Comment on above: Order Comment: Speci men Type: BLOOD SPECIMEN Ordering Facility: [facility] Address: [address] [address] Result Comment: Cuto ff threshold at 300 ng/mL. Performed By: #### 5 7021-8 #### [facility] CLIA [id number] [address] oxyCODONE cutoff Screen (U) [Mass/Vol] Negative Normal Negative [facility] Comment on above: Order Comment: Speci men Type: BLOOD SPECIMEN Ordering Facility: [facility] Address: [address] [address] Result Comment: Cuto ff threshold at 100 ng/mL. Performed By: #### 5 7021-8 #### [facility] CLIA [id number] [address] Phencyclidine Ql (U) Negative Normal Negative [facility] Comment on above: Order Comment: Speci men Type: BLOOD SPECIMEN Ordering Facility: [facility] Address: [address] [place] [address] Result Comment: Cuto ff threshold at 25 ng/mL. Performed By: #### 5 7021-8 #### [facility] CLIA [id number] [address] [place] TSH SerPl-aCncon 07-22-2022 TSH Qn 1.470 m[IU]/L Normal 0.270-4.200 [facility] Comment on above: Order Comment: Speci men Type: BLOOD SPECIMEN Ordering Facility: [facility] Address: [address] [place] [address] Performed By: #### 5 643-2 #### [facility] CLIA [id number] [address] OF [facility] XR PELVIS 1V APon 07-22-2022 XR PELVIS 1V AP * * *Final Report* * * DATE OF EXAM: Jul 22 2022 7:24AM [facility] [id number] - XR PELVIS 1V AP / PROCEDURE REASON: Pelvic trauma * * * * Physician Interpretation * * * * PELVIS CLINICAL INDICATION: Patient sustained a fall. Pelvic trauma. COMPARISON: None. FINDINGS: AP portable view of the pelvis. Urinary bladder is opacified with contrast. Mild osteoarthritis of both hips. Mild degenerative change of the symphysis pubis. Right sacroiliac joint is partially obscured by the opacified bladder. Mild degenerative change of the left sacroiliac joint. Degenerative spondylosis in the visualized lower lumbar spine. No fracture or dislocation. Atherosclerotic vascular calcifications. IMPRESSION: 1. No fracture or dislocation. 2. Degenerative changes as described. Stenographic Court Reporter: LIVIER Transcribe Date/Time: Jul 22 2022 8:22A Dictated by : JAGRUTI OLIVER MD This examination was interpreted and the report reviewed and electronically signed by: JAGRUTI OLIVER MD on Jul 22 2022 8:23AM EST [id number] Normal [facility] aPTT PPPon 07-22-2022 aPTT Coag (PPP) [Time] 29.4 s Normal 23.0-32.4 [facility] Comment on above: Order Comment: Speci men Type: BLOOD SPECIMENOrdering Facility: [facility] Address: [address] [place] [phone] Performed By: #### 3 4528-0, 97984-2 ####[facility] [id number] [place] [address] [facility] Absolute lymphocyte countOrd ered By: Dr. Reyes on 07-21-2022 Lymphocytes Auto (Unsp spec) [#/Vol] 3.14 10*3/uL 0.83-4.51 [facility] Basophil percentageOrdered B y: Dr. Reyes on 07-21-2022 Basophils/100 WBC (Bld) 0.7 % 0-1 [facility] Chloride [Moles/Vol] 106 mmol/L 98-107 [facility] Eosinophils/100 WBC (Bld) 1.1 % 0-5 [facility] Glucose [Mass/Vol] 95 mg/dL 74-106 [facility] Neutrophils (Bld) [#/Vol] 6.3 10*3/uL 2.0-7.7 [facility] Neutrophils/100 WBC (Bld) 58.7 % 47-70 [facility] Potassium [Moles/Vol] 3.6 mmol/L 3.5-5.1 [facility] Sodium [Moles/Vol] 140 mmol/L 136-145 [facility] WBC (Bld) [#/Vol] 10.8 10*3/uL 4.4-11.0 [facility] Blood erythrocytes count (nu mber/volume)Ordered By: Dr. Reyes on 07-21-2022 RBC (Bld) [#/Vol] 4.20 10*6/uL 4.6-6.2 [facility] Blood hemoglobin measurement (mass/volume)Ordered By: Dr. Reyes on 07-21-2022 Hemoglobin (Bld) [Mass/Vol] 13.5 g/dL 13.0-16. 5 [facility] Blood lymphocytes/100 leukoc ytesOrdered By: Dr. Reyes on 07-21-2022 Lymphocytes/100 WBC (Bld) 29.1 % 19-41 [facility] Blood monocytes/100 leukocyt esOrdered By: Dr. Reyes on 07-21-2022 Monocytes/100 WBC (Bld) 9.8 % 0-10 [facility] Blood platelet mean volumeOr dered By: Dr. Reyes on 07-21-2022 Platelet mean volume (Bld) [Entitic vol] 9.1 fL 6.2-12.0 [facility] CT BRAIN WO IVCONon 07-21-20 CT BRAIN WO IVCON * * *Final Report* * * DATE OF EXAM: Jul 21 2022 9:43PM [facility] 0504 - CT BRAIN WO IVCON / PROCEDURE REASON: Subdural hematoma * * * * Physician Interpretation * * * * EXAMINATION: CT BRAIN WO IVCON CLINICAL HISTORY: Subdural hematoma TECHNIQUE: Serial axial images without IV contrast were obtained from the vertex to the foramen magnum. MQ: CTBWO_3 CT Radiation dose: Integrated Dose-Length Product (DLP) for this visit = 785 mGy*cm CT Dose Reduction Employed: Automated exposure control(AEC) and iterative recon COMPARISON: Outside CT brain from earlier the same day FINDINGS: Residual contrast in the vessels partially obscures evaluation. Tiny amounts of acute hemorrhage along the right falx cerebri is likely subarachnoid and stable from the outside imaging. Minimal subdural hematoma along the falx cerebri cannot be excluded and is also somewhat similar. No evidence of new extra-axial fluid collection. 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 There is no evidence of a mass lesion, parenchymal hemorrhage, acute infarction or midline shift. The carter-white matter differentiation is preserved. Ventricles are normal in size and configuration for the patient's age. The basal cisterns are patent. The calvarium is intact. Imaged paranasal sinuses and mastoid air spaces are clear. Reformatted images support the above findings. IMPRESSION: Minimal acute subarachnoid hemorrhage and questionable minimal subdural hemorrhage along the falx cerebri is unchanged without mass effect. Stenographic Court Reporter: LIVIER Transcribe Date/Time: Nov 28 2022 10:37P Dictated by : JADON FRITZ MD This examination was interpreted and the report reviewed and electronically signed by: JADON FRITZ MD on Jul 21 2022 10:42PM EST [id number] N Normal [facility] Determination of erythrocyte mean corpuscular volume (MCV)Ordered By: Dr. Reyes on 07-21-2022 MCV (RBC) [Entitic vol] 94.3 fL 80-94 [facility] Hematocrit Auto (Bld) [Volum e fraction]Ordered By: Dr. Reyes on 07-21-2022 Hematocrit (Bld) [Volume fraction] 39.6 % 40-54 [facility] INR in Blood by Coagulation assayOrdered By: Dr. Reyes on 07-21-2022 INR Coag (Bld) [Relative time] 2.8 {INR} [facility] Laboratory - Chemistry and C hemistry - challengeOrdered By: Dr. Reyes on 07-21-2022 CO2 [Moles/Vol] 27.0 mmol/L 21.0-32.0 [facility] Urea nitrogen/Creatinine [Mass ratio] 21.1 mg/mg 10-20 [facility] Laboratory - CoagulationOrde red By: Dr. Reeys on 07-21-2022 aPTT Coag (Bld) [Time] 41.4 s 24.1-36.2 [facility] PT Coag (PPP) [Time] 29.3 s 11.7-14.9 [facility] Laboratory - Hematology and Cell countsOrdered By: Dr. Reyes on 07-21-2022 Erythrocyte distribution width (RBC) [Entitic vol] 48.6 fL 35.1-43.9 [facility] Erythrocyte distribution width (RBC) [Ratio] 14.3 % 11.6-14.6 [facility] Immature granulocytes/100 WBC (Bld) 0.600 % 0.0-0.9 [facility] Comment on above: IG% - Immature Granu locytes (promyelocytes, myelocytes and metamyelocytes) > 1% indicates that a LEFT SHIFT is Present. MCH (RBC) [Entitic mass] 32.1 pg 27.0-32.0 [facility] Nucleated RBC/100 WBC (Bld) [Ratio] 0 % 0-5 [facility] Auto (RBC) [Mass/Vol]Or dered By: Dr. Reyes on 07-21-2022 MCHC (RBC) [Mass/Vol] 34.1 g/dL 32-36 [facility] No Panel InformationOrdered By: Dr. Reyes on 07-21-2022 Estimated Creatinine Clearance Calc 57.88 ml/min [facility] Estimated GFR (MDRD) Amer 97 mL/min >60 [facility] Comment on above: GFR Calc Estimated GFR (MDRD) Non-Af Amer 80 mL/min >60 [facility] Comment on above: Non- GFR Calc Troponin I High Sensitivity 15 pg/mL 3.0-78.0 [facility] Comment on above: Please Note: New Angela t Units and Gender Specific Reference Ranges. For more information see Policy Stat Procedure [place] High Sensitivity Troponin (TNIH) and attachments. Platelets bldOrdered By: Dr. Reyes on 07-21-2022 Platelets (Bld) [#/Vol] 208 10*3/uL 150-450 [facility] Serum or plasma calcium ana laura urement (mass/volume)Ordered By: Dr. Reyes on 07-21-2022 Calcium [Mass/Vol] 8.4 mg/dL 8.5-10.1 [facility] Serum or plasma creatinine m easurement (mass/volume)Ordered By: Dr. Reyes on 07-21-2022 Creatinine [Mass/Vol] 0.95 mg/dL 0.70-1.30 [facility] Comment on above: The validity of the calculated GFR & GFRAA in patients over 70 years has not been determined. Clinical correlation is essential. Serum or plasma urea nitroge n measurement (mass/volume)Ordered By: Dr. Reyes on 07-21-2022 Urea nitrogen [Mass/Vol] 20 mg/dL 7-18 [facility] Thin prep Papanicolaou smear with manual screeningOrdered By: Dr. Reyes on 07-21-2022 Thin prep Papanicolaou smear with manual screening 7 5-15 [facility] Laboratory - Coagulationon 0 05-13-2022 INR Coag (Bld) [Relative time] 2.8 {INR} [facility] Work Phone: Comment on above: Critical Value > 4.0 Whole blood prothrombin time on 05-13-2022 PT Coag (Bld) [Time] 32.5 s 11.7-14.9 [facility] Work Phone: Laboratory - Coagulationon 0 04-08-2022 INR Coag (Bld) [Relative time] 2.9 {INR} [facility] Work Phone: Comment on above: Critical Value > 4.0 Whole blood prothrombin time on 04-08-2022 PT Coag (Bld) [Time] 32.7 s 11.7-14.9 [facility] Work Phone: Laboratory - Coagulationon 0 03-21-2022 INR Coag (Bld) [Relative time] 2.4 {INR} [facility] Work Phone: Comment on above: Critical Value > 4.0 Whole blood prothrombin time on 03-21-2022 PT Coag (Bld) [Time] 27.4 s 11.7-14.9 [facility] Work Phone: Basophil percentageon 2021 Chloride [Moles/Vol] 98 mmol/L 98-107 [facility] Work Phone: Cholesterol [Mass/Vol] 222 mg/dL <200 [facility] Work Phone: Comment on above: <200 mg/dL Desirable 200-240 mg/dL Borderline >240 mg/dL High Risk Glucose [Mass/Vol] 178 mg/dL 74-106 [facility] Work Phone: Comment on above: Fasting Glucose resu lt greater than or equal to 126 mg/dL suggests DIABETES MELLITUS per A.D.A. criteria. Potassium [Moles/Vol] 2.8 mmol/L 3.5-5.1 [facility] Work Phone: Sodium [Moles/Vol] 139 mmol/L 136-145 [facility] Work Phone: Triglyceride [Mass/Vol] 353 mg/dL <199 [facility] Work Phone: Comment on above: The drugs N-Acetylcy steine and Metamizole may falsely depress this assay.Serum Triglycerides Reference Interval Normal <150 mg/dL Borderline high 150 - 199 mg/dL High 200 - 499 mg/dL Very High > or = 500 mg/dL WBC (Bld) [#/Vol] 12.6 10*3/uL 4.4-11.0 [facility] Work Phone: Blood erythrocytes count (nu mber/volume)on 02-18-2022 RBC (Bld) [#/Vol] 5.12 10*6/uL 4.6-6.2 [facility] Work Phone: Blood hemoglobin measurement (mass/volume)on 02-18-2022 Hemoglobin (Bld) [Mass/Vol] 15.8 g/dL 13.0-16. 5 [facility] Work Phone: Blood platelet mean volumeon 02-18-2022 Platelet mean volume (Bld) [Entitic vol] 9.6 fL 6.2-12.0 [facility] Work Phone: Determination of erythrocyte mean corpuscular volume (MCV)on 02-18-2022 MCV (RBC) [Entitic vol] 90.6 fL 80-94 [facility] Work Phone: Hematocrit Auto (Bld) [Volum e fraction]on 02-18-2022 Hematocrit (Bld) [Volume fraction] 46.4 % 40-54 [facility] Work Phone: Laboratory - Chemistry and C hemistry - challengeon 02-18-2022 Natriuretic peptide B (Bld) [Mass/Vol] 80.9 pg/mL 0-100 [facility] Work Phone: CO2 [Moles/Vol] 31.0 mmol/L 21.0-32.0 [facility] Work Phone: Urea nitrogen/Creatinine [Mass ratio] 24.1 mg/mg 10-20 [facility] Work Phone: Laboratory - Hematology and Cell countson 02-18-2022 Erythrocyte distribution width (RBC) [Entitic vol] 48.8 fL 35.1-43.9 [facility] Work Phone: Erythrocyte distribution width (RBC) [Ratio] 14.6 % 11.6-14.6 [facility] Work Phone: MCH (RBC) [Entitic mass] 30.9 pg 27.0-32.0 [facility] Work Phone: MCHC Auto (RBC) [Mass/Vol]on 02-18-2022 MCHC (RBC) [Mass/Vol] 34.1 g/dL 32-36 [facility] Work Phone: No Panel Informationon 02-18 Estimated GFR (MDRD) Amer 77 mL/min >60 [facility] Work Phone: Comment on above: GFR Calc Estimated GFR (MDRD) Non-Af Amer 64 mL/min >60 [facility] Work Phone: Comment on above: Non- GFR Calc Thyroid Stimulating Hormone (TSH) 2.25 uIU/mL 0.358-3.74 [facility] Work Phone: Platelets bldon 02-18-2022 Platelets (Bld) [#/Vol] 247 10*3/uL 150-450 [facility] Work Phone: Serum or plasma calcium ana laura urement (mass/volume)on 02-18-2022 Calcium [Mass/Vol] 9.1 mg/dL 8.5-10.1 [facility] Work Phone: Serum or plasma cholesterol in HDL measurement (mass/volume)on 02-18-2022 Cholesterol in HDL [Mass/Vol] 51 mg/dL >40 [facility] Work Phone: Comment on above: The drugs N-Acetylcy steine and Metamizole may falsely depress this assay. Reference Range HDL <40 mg/dL Low HDL Cholesterol HDL >or= 60 mg/dL High HDL Cholesterol Serum or plasma cholesterol in VLDL measurement (mass/volume)on 02-18-2022 Cholesterol in VLDL [Mass/Vol] 71 mg/dL 5-40 [facility] Work Phone: Serum or plasma creatinine m easurement (mass/volume)on 02-18-2022 Creatinine [Mass/Vol] 1.16 mg/dL 0.70-1.30 [facility] Work Phone: Comment on above: The validity of the calculated GFR & GFRAA in patients over 70 years has not been determined. Clinical correlation is essential. Serum or plasma low density lipoprotein (LDL) cholesterol measurement (mass/volume)on 02-18-2022 Cholesterol in LDL [Mass/Vol] 100 mg/dL 0-130 [facility] Work Phone: Serum or plasma urea nitroge n measurement (mass/volume)on 02-18-2022 Urea nitrogen [Mass/Vol] 28 mg/dL 7-18 [facility] Work Phone: Thin prep Papanicolaou smear with manual screeningon 02-18-2022 Thin prep Papanicolaou smear with manual screening 10 5-15 [facility] Work Phone: Laboratory - Coagulationon 0 02-17-2022 INR Coag (Bld) [Relative time] 2.3 {INR} [facility] Work Phone: Comment on above: Critical Value > 4.0 Whole blood prothrombin time on 02-17-2022 PT Coag (Bld) [Time] 27.1 s 11.7-14.9 [facility] Work Phone: Serum or plasma uric acid me asurement (mass/volume)on 02-07-2022 Urate [Mass/Vol] 7.6 mg/dL 3.5-7.2 [facility] Work Phone: Comment on above: The drugs N-Acetylcy steine and Metamizole may falsely depress this assay. Laboratory - Coagulationon 0 02-03-2022 INR Coag (Bld) [Relative time] 3.2 {INR} [facility] Work Phone: Comment on above: Critical Value > 4.0 Whole blood prothrombin time on 02-03-2022 PT Coag (Bld) [Time] 36.3 s 11.7-14.9 [facility] Work Phone: Laboratory - Coagulationon 0 01-21-2022 INR Coag (Bld) [Relative time] 2.2 {INR} [facility] Work Phone: Comment on above: Critical Value > 4.0 Whole blood prothrombin time on 01-21-2022 PT Coag (Bld) [Time] 25.5 s 11.7-14.9 [facility] Work Phone: [phone] INR in Blood by Coagulation assayon 01-13-2022 INR Coag (Bld) [Relative time] 1.4 {INR} [facility] Work Phone: Laboratory - Coagulationon 0 01-13-2022 PT Coag (PPP) [Time] 17.2 s 11.7-14.9 [facility] Work Phone: Whole blood prothrombin time on 01-13-2022 PT Coag (Bld) [Time] 18.3 s 11.7-14.9 [facility] Work Phone: Lab Report: Protime w/INR Fi ngerstickon 10-30-2017 Coagulation tissue factor induced in platelet poor plasma 38.3 s High 11.9-14.4 [facility] Work Phone: [phone] INR in blood by coagulation 3.40 {INR} Inva lid Interpretation Code [facility] Work Phone: [phone] Lab Report: Protime w/INR Fi ngerstickon 10-20-2017 Coagulation tissue factor induced in platelet poor plasma 26.9 s High 11.9-14.4 [facility] Work Phone: [phone] INR in blood by coagulation 2.30 {INR} Inva lid Interpretation Code [facility] Work Phone: [phone] Lab Report: Protime w/INR Fi ngerstickon 08-28-2017 Coagulation tissue factor induced in platelet poor plasma 35.1 s High 11.9-14.4 [facility] Work Phone: [phone] INR in blood by coagulation 3.10 {INR} Inva lid Interpretation Code [employer] [facility] Work Phone: [phone] Lab Report: [facility] 07-07-2017 Alanine aminotransferase (ALT) 30 U/L Invalid Interpretation Code 12-78 [employer] [facility] Work Phone: [phone] Albumin 4.2 g/dL Invalid Interpretation Code 3.4-5.0 [employer] [facility] Work Phone: [phone] Albumin/Globulin Ratio 1.2 {ratio} Invalid Interpretation Code 0.9-2.4 [facility] [facility] Work Phone: [phone] Alkaline phosphatase (ALP) 87 U/L Inval id Interpretation Code 45-117 [employer] [facility] Work Phone: [phone] Anion gap 9 mmol/L Invalid Interpretation Code 5-15 [employer] [facility] Work Phone: [phone] Aspartate aminotransferase (AST) 31 U/L Invalid Interpretation Code 15-37 [employer] [facility] Work Phone: [phone] Bilirubin (total) 0.90 mg/dL Invalid Interpretation Code 0.20-1.00 [employer] [facility] Work Phone: [phone] BUN/Creatinine Ratio 19.6 RATIO Invalid Interpretation Code 10-20 [employer] [facility] Work Phone: [phone] Calcium 8.6 mg/dL Invalid Interpretation Code 8.5-10.1 [employer] [facility] Work Phone: [phone] Chloride 104 mmol/L Invalid Interpretation Code 98-107 [employer] [facility] Work Phone: [phone] CO2 29.0 mmol/L Invalid Interpretation Code 21.0-32.0 [employer] [facility] Work Phone: [phone] Creatinine 1.02 mg/dL Invalid Interpretation Code 0.70-1.30 [employer] [facility] Work Phone: [phone] eGFR (non-black) 75 mL/min/{1.73_m2} Invalid Interpretation Code >60 [employer] [facility] Work Phone: [phone] eGFR (non-black) 91 mL/min/{1.73_m2} Invalid Interpretation Code >60 [employer] [facility] Work Phone: [phone] Globulin 3.6 g/dL Invalid Interpretation Code 2.2-4.2 [employer] [facility] Work Phone: [phone] Glucose 119 mg/dL High 70-110 [employer] [facility] Work Phone: [phone] Glucose mass conc 119 mg/dL High 70-110 [employer] [facility] Work Phone: [phone] Potassium molar conc 3.9 mmol/L Invalid Interpretation Code 3.5-5.1 [employer] [facility] Work Phone: [phone] Protein 7.8 g/dL Invalid Interpretation Code 6.4-8.2 [employer] Work Phone: [phone] Sodium 142 mmol/L Invalid Interpretation Code 136-145 [employer] [facility] Work Phone: [phone] Urea nitrogen 20 mg/dL High 7-18 [employer] Work Phone: [phone] Lab Report: Lipid Profileon 07-07-2017 Cholesterol 153 mg/dL Invalid Interpretation Code 200 [employer] [facility] Work Phone: [phone] HDL Cholesterol 45 mg/dL Invalid Interpretation Code [employer] [facility] Work Phone: [phone] LDL Cholesterol 75 mg/dL Invalid Interpretation Code 0-130 [facility] [facility] Work Phone: [phone] Triglyceride 164 mg/dL Invalid Interpretation Code [employer] [facility] Work Phone: [phone] very low density lipoproteins 33 mg/dL Invalid Interpretation Code 5-40 [employer] Work Phone: [phone] Lab Report: PSA,Total - Alexandra al Screenon 07-07-2017 prostate specific antigen (PSA) screening 4.70 ng/mL High 0.00-4.00 [employer] Work Phone: [phone] PSA,TOT SCREEN 4.70 ng/mL High 0.00-4.00 [facility] Work Phone: [phone] Coumadin Management: Topher marie Calcon 06-23-2017 INR Coag RelTime (Bld) 2.5 to 3.5 Invalid Interpretation Code [employer] [facility] Work Phone: [phone] INR Coag RelTime (Bld) Hospital lab Invalid Interpretation Code [employer] [facility] Work Phone: [phone] INR Coag RelTime (PPP) 3.4 {INR} Invalid Interpretation Code [facility] Work Phone: [phone] Prothrombin time (PT) Coag time (PPP) 38.8 s Invalid Interpretation Code [facility] Work Phone: [phone] Lab Report: Protime w/INR Fi [facility] [place] 06-23-2017 Prothrombin time (PT) Coag time (PPP) 38.8 s High 11.9-14.4 [facility] Work Phone: [phone] Coumadin Management: Warfari n Calcon 04-03-2017 Coagulation tissue factor induced in platelet poor plasma 29.6 s Invalid Interpretation Code [facility] Work Phone: [phone] INR Coag RelTime (PPP) 2.6 {INR} [facility] Work Phone: [phone] INR in blood by coagulation 2.5 to 3.5 Inva lid Interpretation Code [facility] Work Phone: [phone] INR in blood by coagulation Hospital lab Inva lid Interpretation Code [facility] Work Phone: [phone] INR in blood by coagulation 2.6 {INR} Inva lid Interpretation Code [facility] Work Phone: [phone] international normalized ratio (INR) range 2.5 to 3.5 [facility] Work Phone: [phone] Office Visiton 04-03-2017 Dietary management education, guidance, and counseling (procedure) yes Invalid Interpretation Code [facility] Work Phone: [phone] Documentation of current medications (procedure) Done Invalid Interpretation Code [facility] Work Phone: [phone] Fall risk assessment No Invalid Interpretation Code [facility] Work Phone: [phone] Protein mass conc Done [facility] Work Phone: [phone] Lab Report: Protime w/INR Fi brandonticsuztete 04-02-2017 Coagulation tissue factor induced in platelet poor plasma 29.6 s High 11.9-14.4 [facility] Work Phone: [phone] Chart Maintenanceon 03-31-20 17 Left ventricular Ejection fraction 55 % Invalid Interpretation Code [facility] Work Phone: [phone] Coumadin Management: Topher marie Calcon 03-10-2017 INR in blood by coagulation 2.5 to 3.5 Inva lid Interpretation Code [facility] Work Phone: [phone] international normalized ratio (INR) range 2.5 to 3.5 [facility] Work Phone: [phone] Coumadin Management: Topher marie Calcon 03-06-2017 INR Coag RelTime (Bld) Hospital lab Invalid Interpretation Code [facility] Work Phone: [phone] Prothrombin time (PT) Coag time (PPP) 28.5 s Invalid Interpretation Code [facility] Work Phone: [phone] Lab Report: Basic Metabolic Profile (BMP)on 03-06-2017 Anion gap 8 mmol/L Invalid Interpretation Code - [facility] Work Phone: [phone] Anion gap molar conc 8 mmol/L 5-[address] [facility] Work Phone: [phone] BUN/Creatinine Ratio 17.2 RATIO Invalid Interpretation Code 10-20 [facility] Work Phone: [phone] Calcium 8.6 mg/dL Invalid Interpretation Code 8.5-10.1 [facility] Work Phone: [phone] Chloride 103 mmol/L Invalid Interpretation Code 98-107 [facility] Work Phone: [phone] CO2 27.0 mmol/L Invalid Interpretation Code 21.0-32.0 [facility] Work Phone: [phone] CO2 ppres (BldV) 27.0 mmol/L 21.0-32.0 [facility] Work Phone: [phone] Creatinine 1.22 mg/dL Invalid Interpretation Code 0.70-1.30 [facility] Work Phone: [phone] eGFR (non-black) 74 mL/min/{1.73_m2} Invalid Interpretation Code >60 [facility] Work Phone: [phone] eGFR (non-black) 61 mL/min/{1.73_m2} Invalid Interpretation Code >60 [facility] Work Phone: [phone] EST GFR - AA 74 mL/min >60 [facility] Work Phone: [phone] Glucose 120 mg/dL High 70-110 [facility] Work Phone: [phone] Glucose mass conc 120 mg/dL High 70-110 [facility] Work Phone: [phone] Potassium 3.7 mmol/L Invalid Interpretation Code 3.5-5.1 [facility] Work Phone: [phone] Sodium 138 mmol/L Invalid Interpretation Code 136-145 [facility] Work Phone: [phone] Urea nitrogen 21 mg/dL High 7-18 [facility] Work Phone: [phone] Lab Report: Prothrombin Time w/INRon 03-06-2017 INR Coag RelTime (PPP) 2.8 {INR} [facility] Work Phone: [phone] INR in blood by coagulation 2.8 {INR} Inva lid Interpretation Code [facility] Work Phone: [phone] Prothrombin time (PT) Coag time (PPP) 28.5 s High 11.7-14.9 [facility] Work Phone: [phone] Chart Maintenanceon 02-04-20 17 Hemoglobin A1c/Hemoglobin.total mass fraction (Bld) 6.0 % Invalid Interpretation Code [facility] Work Phone: [phone] Coumadin Management: Shahramari n Calcon 02-02-2017 INR Coag RelTime (Bld) Hospital lab Invalid Interpretation Code [facility] Work Phone: [phone] INR Coag RelTime (PPP) 3.1 {INR} [facility] Work Phone: [phone] INR in blood by coagulation 3.1 {INR} Inva lid Interpretation Code [facility] Work Phone: [phone] INR in blood by coagulation 2.5 to 3.5 Inva lid Interpretation Code [facility] Work Phone: [phone] international normalized ratio (INR) range 2.5 to 3.5 [facility] Work Phone: [phone] Prothrombin time (PT) Coag time (PPP) 30.5 s Invalid Interpretation Code [facility] Work Phone: [phone] Lab Report: Basic Metabolic Profile (BMP)on 02-02-2017 Anion gap molar conc 6 mmol/L 5-[address] [facility] Work Phone: [phone] Calcium mass conc 8.6 mg/dL 8.5-10.1 [facility] Work Phone: [phone] Chloride molar conc 104 mmol/L 98-107 [facility] Work Phone: [phone] CO2 ppres (BldV) 28.0 mmol/L 21.0-32.0 [facility] Work Phone: [phone] Creatinine mass conc 1.07 mg/dL 0.70-1.[address] [facility] Work Phone: [phone] EST GFR - AA 86 mL/min >60 [facility] Work Phone: [phone] GFR/1.73 sq M predicted among non-blacks MDRD vol rate/area (S/P/Bld) 71 mL/min/{1.73_m2} >60 [facility] Work Phone: [phone] Glucose mass conc 182 mg/dL High 70-110 [facility] Work Phone: [phone] Potassium molar conc 3.6 mmol/L 3.5-5.[address] [facility] Work Phone: [phone] Sodium molar conc 138 mmol/L 136-145 [facility] Work Phone: [phone] Urea nitrogen mass conc 22 mg/dL High 7-18 [facility] Work Phone: [phone] Urea nitrogen/Creatinine mass ratio 20.6 RATIO High 10-20 [facility] Work Phone: [phone] Lab Report: Prothrombin Time w/INRon 02-02-2017 Prothrombin time (PT) Coag time (PPP) 30.5 s High 11.7-14.9 [facility] Work Phone: [phone] Coumadin Management: Warfari n Calcon 12-29-2016 Coagulation tissue factor induced in platelet poor plasma 37.3 s Invalid Interpretation Code [facility] Work Phone: [phone] INR in blood by coagulation Fingerstick Inva lid Interpretation Code [facility] Work Phone: [phone] INR in blood by coagulation 3.3 {INR} Inva lid Interpretation Code [employer] [facility] Work Phone: [phone] INR in blood by coagulation 2.5 to 3.5 Inva lid Interpretation Code [facility] Work Phone: [phone] Lab Report: Prothrombin Time Fingerstickon 12-29-2016 Coagulation tissue factor induced in platelet poor plasma 37.3 s High 11.9-14.4 [facility] Work Phone: [phone] Lab Report: Basic Metabolic Profile (BMP)on 11-14-2016 Anion gap 8 mmol/L Invalid Interpretation Code -15 [facility] Work [phone] Anion gap molar conc 8 mmol/L 5-15 [employer] Work [phone] BUN/Creatinine Ratio 15.9 RATIO 10-20 [employer] Work Phone: [phone] Calcium 8.8 mg/dL 8.5-10.1 [facility] Work [phone] Chloride 100 mmol/L 98-107 [facility] Work [phone] CO2 29.0 mmol/L Invalid Interpretation Code 21.0-32.0 [facility] Work Phone: [phone] CO2 ppres (BldV) 29.0 mmol/L 21.0-32.0 [facility] Work Phone: [phone] Creatinine 1.07 mg/dL 0.70-1.30 [facility] Work [phone] eGFR (non-black) 86 mL/min/{1.73_m2} Invalid Interpretation Code >60 [facility] Work [phone] eGFR (non-black) 71 mL/min/{1.73_m2} >60 [facility] Work [phone] EST GFR - AA 86 mL/min >60 [facility] Work [phone] Glucose 115 mg/dL High 70-110 [facility] Work [phone] Glucose mass conc 115 mg/dL High 70-110 [facility] Work Phone: [phone] Potassium 3.9 mmol/L 3.5-5.1 [facility] Work Phone: [phone] Sodium 137 mmol/L 136-145 [facility] Work Phone: [phone] Urea nitrogen 17 mg/dL 7-18 [employer] Work Phone: [phone] Lab Report: Prothrombin Time w/INRon 11-14-2016 Coagulation tissue factor induced in platelet poor plasma 26.9 s High 11.7-14.9 [facility] [facility] Work Phone: [phone] Office Visiton 11-14-2016 Dietary management education, guidance, and counseling (procedure) yes Invalid Interpretation Code [employer] [facility] Work Phone: [phone] Documentation of current medications (procedure) Done Invalid Interpretation Code [employer] [facility] Work Phone: [phone] Protein mass conc Done [facility] [facility] Work Phone: [phone] Lab Report: BNP,B-Type NATRI URETIC PEPTIDEon 07-25-2016 BNP 133.6 pg/mL High 0-100 [employer] Work Phone: [phone] Lab Report: CBC W/Diff, Auto matedon 07-25-2016 Absolute Neut 6.0 X10 3/UL Invalid Interpretation Code 2.0-7.7 [facility] Work Phone: [phone] Basophils/100 leukocytes 0.5 % Invalid Interpretation Code 0-1 [facility] Work Phone: [phone] Basophils/100 WBC (Bld) 0.5 % 0-1 [facility] Work Phone: [phone] Eosinophils/100 leukocytes 2.4 % Inval id Interpretation Code 0-5 [facility] Work Phone: [phone] Eosinophils/100 WBC (Bld) 2.4 % 0-5 [facility] Work Phone: [phone] Erythrocyte distribution width Ratio (RBC) 42.3 fL 35.1-43.9 [facility] Work Phone: [phone] Erythrocyte distribution width Ratio (RBC) 13.0 % 11.6-14.6 [facility] Work Phone: Erythrocytes (RBC) 4.44 10*6/uL Low 4.6-6.[address] [facility] Work Phone: Hematocrit (HCT) 39.8 % Low 40-54 [facility] Work Phone: Hematocrit Volume Fraction (Bld) 39.8 % Low 40-54 [facility] Work Phone: Hemoglobin (HGB) 13.5 g/dL Invalid Interpretation Code 13.0-16.5 [facility] Work Phone: Immature granulocytes #/vol (Bld) 0.100 % 0.0-0.9 [facility] Work Phone: immature granulocytes, percentage of total cells, blood 0.100 % Invalid Interpretation Code 0.0-0.9 [facility] Work Phone: Immature granulocytes/100 WBC (Bld) 0.100 % Invalid Interpretation Code 0.0-0.9 [facility] Work Phone: Lymphocytes 1.96 X10 3/UL Invalid Interpretation Code 0.83-4.51 [facility] Work Phone: Lymphocytes #/vol (Bld) 1.96 X10 3/UL 0.83-4.51 [facility] Work Phone: Lymphocytes/100 leukocytes 21.3 % Inval id Interpretation Code 19-41 [facility] Work Phone: Lymphocytes/100 WBC (Bld) 21.3 % 19-41 [facility] Work Phone: MCH 30.4 pg Invalid Interpretation Code 27.0-32.0 [facility] Work Phone: MCH Entitic mass (RBC) 30.4 pg 27.0-32.0 [facility] Work Phone: MCHC 33.9 G/GL Invalid Interpretation Code 32-36 [facility] Work Phone: MCHC mass conc (RBC) 33.9 G/GL 32-[address] [facility] Work Phone: MCV 89.6 fL Invalid Interpretation Code 80-94 [facility] Work Phone: MCV Entitic volume (RBC) 89.6 fL 80-94 [facility] Work Phone: Monocytes/100 leukocytes 10.6 % High 0-10 [facility] Work Phone: Monocytes/100 WBC (Bld) 10.6 % High 0-10 [email or web address] Work Phone: neutrophil count, blood 6.0 X10 3/UL Invalid Interpretation Code 2.0-7.7 [facility] Work Phone: Neutrophils #/vol (Bld) 6.0 X10 3/UL 2.0-7.7 [facility] Work Phone: Neutrophils/100 leukocytes 65.1 % Inval id Interpretation Code 47-70 [employer] Work Phone: Neutrophils/100 WBC (Bld) 65.1 % 47-70 [facility] Work Phone: Platelet mean volume Entitic volume (Bld) 9.5 fL 6.2-12.0 [employer] [facility] Work Phone: Platelets 249 10*3/mm3 Invalid Interpretation Code 150-450 [employer] [facility] Work Phone: Platelets #/vol (Bld) 249 10*3/mm3 150-450 [email or web address] Work Phone: PMV by Costa 9.5 fL Invalid Interpretation Code 6.2-12.0 [employer] Work Phone: RBC #/vol (Bld) 4.44 10*6/uL Low 4.6-6.2 [employer] [facility] Work Phone: RDW SD 42.3 fL Invalid Interpretation Code 35.1-43.9 [employer] Work Phone: RDW-CA 13.0 % Invalid Interpretation Code 11.6-14.6 [employer] [facility] Work Phone: red blood cell distribution width, size density 42.3 fL Invalid Interpretation Code 35.1-43.9 [facility] Work Phone: [phone] WBC #/vol (Bld) 9.2 10*3/uL 4.4-11.0 [facility] Work Phone: [phone] WBC (Leukocytes) 9.2 10*3/uL Invalid Interpretation Code 4.4-11.0 [facility] Work Phone: [phone] Office Visiton 07-25-2016 Tobacco smoking status NEIS Tobacco smok ing status NHIS Invalid Interpretation Code [facility] Work Phone: [phone] Tobacco smoking status NHIS Former smoker [facility] Work Phone: [phone] Tobacco use [facility] Former smoker Invalid Interpretation Code [facility] Work Phone: [phone] Lab Report: Comprehensive Tn tabolic Profilon 05-14-2016 Alanine aminotransferase (ALT) 31 U/L Invalid Interpretation Code 12-78 [facility] Work Phone: [phone] Albumin 4.1 g/dL Invalid Interpretation Code 3.4-5.0 [facility] Work Phone: [phone] Albumin/Globulin Ratio 1.3 {ratio} Invalid Interpretation Code 0.9-2.4 [facility] Work Phone: [phone] Alkaline phosphatase (ALP) 71 U/L Inval id Interpretation Code 50-136 [facility] Work Phone: [phone] ALP enzyme act/vol (Bld) 71 U/L 50-136 [facility] Work Phone: [phone] Aspartate aminotransferase (AST) 36 U/L Invalid Interpretation Code 15-37 [facility] Work Phone: [phone] Bilirubin (total) 1.50 mg/dL High 0.20-1.00 [facility] Work Phone: [phone] Globulin 3.1 g/dL Invalid Interpretation Code 2.3-3.5 [facility] Work Phone: [phone] Globulin mass conc (S) 3.1 g/dL 2.3-3.5 [facility] Work Phone: [phone] Protein 7.2 g/dL Invalid Interpretation Code 6.4-8.2 [facility] Work Phone: [phone] Lab Report: Hemoglobin A1con 05-14-2016 HbA1c 6.5 % High 4.2-6.3 [employer] Work Phone: [phone] Lab Report: Lipid Profileon 05-14-2016 Cholesterol 138 mg/dL Invalid Interpretation Code 200 [employer] Work Phone: [phone] HDL Cholesterol 45 mg/dL Invalid Interpretation Code [employer] Work Phone: [phone] LDL Cholesterol 60 mg/dL Invalid Interpretation Code 0-130 [employer] [facility] Work Phone: [phone] Triglyceride 167 mg/dL Invalid Interpretation Code [employer] Work Phone: [phone] very low density lipoproteins 33 mg/dL Invalid Interpretation Code 5-40 [facility] Phone: [phone] Lab Report: PSA,Total- Diagn osticon 05-14-2016 prostate specific antigen, total 3.65 ng/mL Invalid Interpretation Code 0.0-4.0 [facility] Work Phone: [phone] Protein mass conc 3.65 ng/mL 0.0-4.0 [facility] Work Phone: [phone] PSA, DIAGNOSTIC 3.65 ng/mL Invalid Interpretation Code 0.0-4.0 [facility] Phone: [phone] Append: Dr. Castelan Consulton 03-31-2016 Clinical consultation report (record artifact) [id number] Invalid Interpretation Code [facility] Phone: [phone] Clinical Lists Update: Clini eulalia Noteon 01-04-2016 Left ventricular Ejection fraction 55 % [facility] Phone: [phone] Replaced Document: [facility] E CG Observationson 10-08-2015 EKG QRS axis -31 deg Invalid Interpretation Code [facility] Phone: [phone] electrocardiogram interpretation Atrial fibrillation ABNORMAL RHYTHM Invalid Interpretation Code [facility] Phone: [phone] GE use only - for [employer] import when terms are not otherwise specified 448 ms Invalid Interpretation Code [facility] Phone: [phone] Interpretation Atrial fibrillation ABNORMAL RHYTHM Invalid Interpretation Code [facility] Phone: [phone] P [place] 1 deg Invalid Interpretation Code [facility] Work Phone: [phone] P wave axis, electrocardiogram 1 deg Invalid Interpretation Code [facility] Work Phone: [phone] W[place] Interval 0 ms Invalid Interpretation Code [employer] [facility] Work Phone: [phone] [place] interval, electrocardiogram 0 ms Invalid Interpretation Code [employer] Work Phone: [phone] Pulse (Heart Rate) 67 /min Invalid Interpretation Code [facility] Work Phone: [phone] QRS axis, electrocardiogram -31 deg Inva lid Interpretation Code [facility] Work Phone: [phone] QRS Duration 96 ms Invalid Interpretation Code [facility] Work Phone: [phone] QRS duration, electrocardiogram 96 ms Invalid Interpretation Code [facility] Work Phone: [phone] QT Interval new path ms Invalid Interpretation Code [facility] Work Phone: [phone] QT interval, electrocardiogram new path ms Invalid Interpretation Code [facility] Work Phone: [phone] QTc [place] 448 ms Invalid Interpretation Code [facility] Work Phone: [phone] T [place] 53 deg Invalid Interpretation Code [facility] Work Phone: [phone] T wave axis, electrocardiogram 53 deg Invalid Interpretation Code [facility] Work Phone: [phone] Chart Maintenanceon 04-10-20 15 Testosterone 303 ng/mL Invalid Interpretation Code [facility] Work Phone: [phone] Thyroid stimulating hormone (TSH) 2.16 u[iU]/mL Invalid Interpretation Code [facility] [facility] Work Phone: [phone] Lab Report: Liver Profileon 12-01-2014 Bilirubin (direct) 0.09 mg/dL Invalid Interpretation Code 0.00-0.30 [facility] Work Phone: [phone] Lab Report: T4 Total, Thyrox inon 12-01-2014 Thyroxine (T4) 10.6 ug/dL Invalid Interpretation Code 4.5-12.1 [facility] Phone: [phone] Office Visiton 08-10-2014 cardiac risk group C Invalid Interpretation Code [facility] Work Phone: General cardiovascular disease 10Y risk [#] [place].D'Agostino N/A Invalid Interpretation Code [facility] Work Phone: [phone] Replaced Document: Aidan CHIU Observationson 06-08-2014 Pulse (Heart Rate) 433 ms Invalid Interpretation Code [facility] Work Phone: [phone] Lab Report: CBCDon 4 Absolute Neutrophil count 5.9 X10 3/UL Normal 2.0-7.7 [facility] Work Phone: [phone] ANC 5.9 X10 3/UL Normal 2.0-7.7 [facility] Work Phone: [phone] Office Visiton 12-25-2011 Alcoholism counseling (procedure) no Invalid Interpretation Code [facility] Work Phone: [phone] Protein mass conc no [facility] Work Phone: [phone] ECG B/O W INTERP (MED OFFICE ) [facility] Vital Signs Date Time Vital Sign Value Performing Clinician Faci lity 03-17-2025 08:52-0400 Body height 175.[address] Bashir Cortez MD Work Phone: [facility] 03-17-2025 08:52-0400 Body mass index (BMI) [Ratio] 24.6 kg/m2 Dr. Bashir Cortez MD Work Phone: [facility] 03-17-2025 08:52-0400 Body weight 75.[address] Bashir Cortez MD Work Phone: [facility] 03-17-2025 08:52-0400 Diastolic blood pressure 64 mm[Hg] Dr. Bashir Cortez MD Work Phone: [facility] 03-17-2025 08:52-0400 Heart rate 65 /min Dr. Bashir Cortez MD Work Phone: [facility] 03-17-2025 08:52-0400 Respiratory rate 20 /min Dr. Bashir Cortez MD Work Phone: 0(464)531-283383 [address] 03-17-2025 08:52-0400 SaO2% (BldA) [Mass fraction] 94 % Dr. Bashir Cortez MD Work Phone: 1(279)533-349051 [place] [address] 03-17-2025 08:52-0400 Systolic blood pressure 107 mm[Hg] Dr. Bashir Cortez MD Work Phone: 7(238)349-739251 [place] [address] 02-07-2025 11:19-0400 Body height 175.[address] Bashir Cortez MD Work Phone: 6(885)935-193251 [place] [address] 02-07-2025 11:19-0400 Body mass index (BMI) [Ratio] 24.7 kg/m2 Dr. Bashir Cortez MD Work Phone: 7(050)305-391851 [place] [address] 02-07-2025 11:19-0400 Body weight 76.[address] Bashir Cortez MD Work Phone: 7(164)601-847751 [place] [address] 02-07-2025 11:19-0400 Diastolic blood pressure 71 mm[Hg] Dr. Bashir Cortez MD Work Phone: 6(655)463-065951 [place] [address] 02-07-2025 11:19-0400 Heart rate 72 /min Dr. Bashir Cortez MD Work Phone: 6(320)053-047351 [place] [address] 02-07-2025 11:19-0400 Respiratory rate 16 /min Dr. Bashir Cortez MD Work Phone: 6(927)877-096851 [place] [address] 02-07-2025 11:19-0400 Systolic blood pressure 128 mm[Hg] Dr. Bashir Cortez MD Work Phone: 3(336)655-421651 [place] [address] 01-22-2025 04:35-0400 Body mass index (BMI) [Ratio] 29.6 kg/m2 Dr. Bashir Cortez MD Work Phone: 0(125)477-676351 [place] [address] 01-09-2025 12:58-0400 Body height 175.[address] Bashir Cortez MD Work Phone: 9(848)080-280251 [place] [address] 01-09-2025 12:58-0400 Body mass index (BMI) [Ratio] 24 kg/m2 Dr. Bashir Cortez MD Work Phone: [facility] 01-09-2025 12:58-0400 Body temperature 97.8 [degF] Dr. Bashir Cortez MD Work Phone: [facility] 01-09-2025 12:58-0400 Body weight 73.[address] Bashir Cortez MD Work Phone: [facility] 01-09-2025 12:58-0400 Diastolic blood pressure 64 mm[Hg] Dr. Bashir Cortez MD Work Phone: 8(838)546-438551 [place] [address] 01-09-2025 12:58-0400 Heart rate 70 /min Dr. Bashir Cortez MD Work Phone: 4(941)763-687451 [place] [address] 01-09-2025 12:58-0400 Respiratory rate 16 /min Dr. Bashir Cortez MD Work Phone: 4(654)156-084583 [address] 01-09-2025 12:58-0400 SaO2% (BldA) [Mass fraction] 93 % Dr. Bashir Cortez MD Work Phone: 4(601)411-299694 [place] [address] 01-09-2025 12:58-0400 Systolic blood pressure 118 mm[Hg] Dr. Bashir Cortez MD Work Phone: 7(815)011-451483 [address] 12-22-2024 13:50-0400 Body height 175.[address] Bashir Cortez MD Work Phone: [facility] 12-22-2024 13:50-0400 Body mass index (BMI) [Ratio] 24.6 kg/m2 Dr. Bashir Cortez MD Work Phone: 0(555)896-258183 [address] 12-22-2024 13:50-0400 Body weight 75.[address] Bashir Cortez MD Work Phone: 9(065)022-600183 [address] 12-22-2024 13:50-0400 Diastolic blood pressure 62 mm[Hg] Dr. Bashir Cortez MD Work Phone: 7(587)778-722351 [place] [address] 12-22-2024 13:50-0400 Heart rate 61 /min Dr. Bashir Cortez MD Work Phone: 3(338)964-384851 [place] [address] 12-22-2024 13:50-0400 Respiratory rate 16 /min Dr. Bashir Cortez MD Work Phone: 8(950)508-563751 [place] [address] 12-22-2024 13:50-0400 Systolic blood pressure 155 mm[Hg] Dr. Bashir Cortez MD Work Phone: 7(616)418-273451 [place] [address] 12-21-2024 22:15-0400 Body mass index (BMI) [Ratio] 29.6 kg/m2 Dr. Bashir Cortez MD Work Phone: 2(146)765-141751 [place] [address] 11-21-2024 22:54-0400 Body mass index (BMI) [Ratio] 29.6 kg/m2 Dr. Bashir Cotrez MD Work Phone: 2(251)211-501751 [place] [address] 08-24-2024 04:53-0500 Body mass index (BMI) [Ratio] 29.6 kg/m2 Dr. Bashir Cortez MD Work Phone: 3(419)015-761851 [place] [address] 06-23-2024 21:24-0400 Body mass index (BMI) [Ratio] 29.6 kg/m2 Dr. Bashir Cortez MD Work Phone: 1(437)752-000951 [place] [address] 12-18-2023 10:36-0400 Body height 172.[address] Bashir Cortez Work Phone: 1(533)627-310851 [place] [address] 12-18-2023 10:36-0400 Body mass index (BMI) [Ratio] 27.8 kg/m2 Dr. Bashir Cortez Work Phone: 4(684)322-426651 [place] [address] 12-18-2023 10:36-0400 Body temperature 98.5 [degF] Dr. Bashir Cortez Work Phone: 2(677)469-467951 [place] [address] 12-18-2023 10:36-0400 Body weight 83.[address] Bashir Cortez Work Phone: 6(168)730-246551 [place] [address] 12-18-2023 10:36-0400 Diastolic blood pressure 62 mm[Hg] Dr. Bashir Cortez Work Phone: [facility] 12-18-2023 10:36-0400 Heart rate 62 /min Dr. Bashir Cortez Work Phone: [facility] 12-18-2023 10:36-0400 Respiratory rate 18 /min Dr. Bashir Cortez Work Phone: [facility] 12-18-2023 10:36-0400 SaO2% (BldA) [Mass fraction] 93 % Dr. Bashir Cortez Work Phone: [facility] 12-18-2023 10:36-0400 Systolic blood pressure 134 mm[Hg] Dr. Bashir Cortez Work Phone: [facility] 12-16-2023 09:08-0400 Body mass index (BMI) [Ratio] 27 kg/m2 Dr. Bashir Cortez Work Phone: [facility] 12-16-2023 09:08-0400 Body weight [address] Bashir Cortez Work Phone: [facility] 12-16-2023 09:08-0400 Diastolic blood pressure 78 mm[Hg] Dr. Bashir Cortez Work Phone: [facility] 12-16-2023 09:08-0400 Heart rate 61 /min Dr. Bashir Cortez Work Phone: [facility] 12-16-2023 09:08-0400 Respiratory rate 18 /min Dr. Bashir oCrtez Work Phone: [facility] 12-16-2023 09:08-0400 Systolic blood pressure 158 mm[Hg] Dr. Bashir Cortez Work Phone: [facility] 12-15-2023 09:52-0400 Body mass index (BMI) [Ratio] 26.6 kg/m2 Dr. Bashir Cortez Work Phone: 8(925)648-549951 [place] [address] 12-15-2023 09:52-0400 Body temperature 98.2 [degF] Dr. Bashir Cortez Work Phone: 4(252)928-197151 [place] [address] 12-15-2023 09:52-0400 Body weight 82.[address] Bashir Cortez Work Phone: 1(739)444-542151 [place] [address] 12-15-2023 09:52-0400 Diastolic blood pressure 70 mm[Hg] Dr. Bashir Cortez Work Phone: 8(437)454-512551 [place] [address] 12-15-2023 09:52-0400 Heart rate 59 /min Dr. Bashir Cortez Work Phone: 6(250)363-817751 [place] [address] 12-15-2023 09:52-0400 Respiratory rate 17 /min Dr. Bashir Cortez Work Phone: 2(437)603-025851 [place] [address] 12-15-2023 09:52-0400 SaO2% (BldA) [Mass fraction] 92 % Dr. Bashir Cortez Work Phone: 8(606)999-722351 [place] [address] 12-15-2023 09:52-0400 Systolic blood pressure 122 mm[Hg] Dr. Bashir Cortez Work Phone: 9(507)472-457451 [place] [address] 11-22-2023 01:33-0400 Body mass index (BMI) [Ratio] 29.6 kg/m2 Dr. Bashir Cortez Work Phone: 8(655)461-989351 [place] [address] 06-23-2023 22:52-0400 Body mass index (BMI) [Ratio] 29.6 kg/m2 Dr. Fernando Cortez Work Phone: 4(901)039-794651 [place] [address] 06-16-2023 09:29-0400 Body height 175.[address] Fernando Cortez Work Phone: 2(233)538-486551 [place] [address] 06-16-2023 09:29-0400 Body mass index (BMI) [Ratio] 26.9 kg/m2 Dr. Fernando Cortez Work Phone: 7(457)568-860251 [place] [address] 06-16-2023 09:29-0400 Body weight 82.[address] Fernando Cortez Work Phone: [facility] 06-16-2023 09:29-0400 Diastolic blood pressure 67 mm[Hg] Dr. Fernando Cortez Work Phone: [facility] 06-16-2023 09:29-0400 Heart rate 59 /min Dr. Fernando Cortez Work Phone: [facility] 06-16-2023 09:29-0400 Respiratory rate 18 /min Dr. Fernando Cortez Work Phone: [facility] 06-16-2023 09:29-0400 Systolic blood pressure 156 mm[Hg] Dr. Fernando Cortez Work Phone: [facility] 04-23-2023 23:45-0400 Body mass index (BMI) [Ratio] 29.6 kg/m2 Dr. Fernando Cortez Work Phone: 6(118)653-217894 [place] [address] 03-24-2023 01:55-0400 Body mass index (BMI) [Ratio] 29.6 kg/m2 Dr. Fernando Cortez Work Phone: 7(095)296-179483 [address] 02-21-2023 01:54-0400 Body mass index (BMI) [Ratio] 29.6 kg/m2 Dr. Fernando Cortez Work Phone: [facility] 01-22-2023 08:19-0400 Body mass index (BMI) [Ratio] 29.6 kg/m2 Dr. Fernando Cortez Work Phone: [facility] 12-30-2022 13:27-0400 Body height 175.[address] Fernando Cortez Work Phone: [facility] 12-30-2022 13:27-0400 Body mass index (BMI) [Ratio] 27.1 kg/m2 Dr. Fernando Cortez Work Phone: [facility] 12-30-2022 13:27-0400 Body weight 83.[address] Fernando Cortez Work Phone: [facility] 12-30-2022 13:27-0400 Diastolic blood pressure 49 mm[Hg] Dr. Fernando Cortez Work Phone: [facility] 12-30-2022 13:27-0400 Heart rate 58 /min Dr. Fernando Cortez Work Phone: [facility] 12-30-2022 13:27-0400 Respiratory rate 16 /min Dr. Fernando Cortez Work Phone: [facility] 12-30-2022 13:27-0400 Systolic blood pressure 116 mm[Hg] Dr. Fernando Cortez Work Phone: [facility] 10-06-2022 10:56-0500 Body height 172.7 cm George Galloway MD Work Phone: [facility] 10-06-2022 10:56-0500 Body weight 79.38 kg George Galloway MD Work Phone: [facility] 10-06-2022 10:56-0500 Diastolic blood pressure 63 mm[Hg] George Galloway MD Work Phone: [facility] 10-06-2022 10:56-0500 Heart rate 66 /min George Galloway MD Work Phone: [facility] 10-06-2022 10:56-0500 SaO2% (BldA) [Mass fraction] 94 % George Galloway MD Work Phone: [facility] 10-06-2022 10:56-0500 Systolic blood pressure 166 mm[Hg] George Galloway MD Work Phone: [facility] 09-18-2022 15:15-0500 Body height 175.[address] Fernando Cortez Work Phone: [facility] 09-18-2022 15:15-0500 Body mass index (BMI) [Ratio] 26.6 kg/m2 Dr. Fernando Cortez Work Phone: [facility] 09-18-2022 15:15-0500 Body weight 81.[address] Fernando Cortez Work Phone: [facility] 09-18-2022 15:15-0500 Diastolic blood pressure 75 mm[Hg] Dr. Fernando Cortez Work Phone: [facility] 09-18-2022 15:15-0500 Heart rate 71 /min Dr. Fernando Cortez Work Phone: [facility] 09-18-2022 15:15-0500 Respiratory rate 18 /min Dr. Fernando Cortez Work Phone: [facility] 09-18-2022 15:15-0500 Systolic blood pressure 155 mm[Hg] Dr. Fernando Cortez Work Phone: [facility] 09-03-2022 13:24-0500 Body height 172.7 cm Swetaailyn Jenkins TOP CUTTER.CARE MANAGEMENT COORDINATOR Work Phone: [facility] 09-03-2022 13:24-0500 Body weight 79 kg Sweta Fegatdavid TOP CUTTER.CARE MANAGEMENT COORDINATOR Work Phone: [facility] 09-03-2022 13:24-0500 Diastolic blood pressure 59 mm[Hg] Sweta Fegatdavid TOP CUTTER.CARE MANAGEMENT COORDINATOR Work Phone: [facility] 09-03-2022 13:24-0500 Heart rate 67 /min Sweta Fegatdavid TOP CUTTER.CARE MANAGEMENT COORDINATOR Work Phone: [facility] 09-03-2022 13:24-0500 SaO2% (BldA) [Mass fraction] 97 % Sweta Fegatdavid TOP CUTTER.CARE MANAGEMENT COORDINATOR Work Phone: [facility] 09-03-2022 13:24-0500 Systolic blood pressure 117 mm[Hg] Sweta Fegatdavid TOP CUTTER.CARE MANAGEMENT COORDINATOR Work Phone: [facility] 08-11-2022 12:42-0500 Body height 172.7 cm Jose Corona MD Work Phone: [facility] 08-11-2022 12:42-0500 Body weight 79.38 kg Jose Corona MD Work Phone: [facility] 08-11-2022 12:42-0500 Diastolic blood pressure 80 mm[Hg] Jose Corona MD Work Phone: [facility] 08-11-2022 12:42-0500 Heart rate 83 /min Jose Corona MD Work Phone: [facility] 08-11-2022 12:42-0500 Respiratory rate 16 /min Jose Corona MD Work Phone: [facility] 08-11-2022 12:42-0500 Systolic blood pressure 132 mm[Hg] Jose Corona MD Work Phone: [facility] 07-28-2022 15:51-0500 Body height 175.[address] Fernando Cortez Work Phone: [facility] Work Phone: 07-28-2022 15:51-0500 Body mass index (BMI) [Ratio] 26.4 kg/m2 Dr. Fernando Cortez Work Phone: [facility] 07-28-2022 15:51-0500 Body weight 81.[address] Fernando Cortez Work Phone: [facility] 07-28-2022 15:51-0500 Diastolic blood pressure 84 mm[Hg] Dr. Fernando Cortez Work Phone: [facility] 07-28-2022 15:51-0500 Heart rate 60 /min Dr. Fernando Cortez Work Phone: [facility] 07-28-2022 15:51-0500 Respiratory rate 18 /min Dr. Fernando Cortez Work Phone: [facility] 07-28-2022 15:51-0500 SaO2% (BldA) [Mass fraction] 94 % Dr. Fernando Cortez Work Phone: [facility] 07-28-2022 15:51-0500 Systolic blood pressure 148 mm[Hg] Dr. Fernando Cortez Work Phone: [facility] 07-21-2022 20:02-0500 Heart rate 48 /min [facility] 07-21-2022 20:02-0500 Respiratory rate 18 /min [facility] 07-21-2022 20:02-0500 SaO2% (BldA) [Mass fraction] 94 % [facility] 07-21-2022 20:00-0500 Diastolic blood pressure 50 mm[Hg] [facility] 07-21-2022 20:00-0500 Inhaled oxygen flow rate 2 L/min [facility] 07-21-2022 20:00-0500 Systolic blood pressure 117 mm[Hg] [facility] 07-21-2022 19:17-0500 Body mass index (BMI) [Ratio] 29 kg/m2 [facility] 07-21-2022 18:51-0500 Body height 175.26 cm [facility] Work Phone: 07-21-2022 18:51-0500 Body weight 89.2 kg [facility] 07-21-2022 18:44-0500 Body temperature 97.3 [degF] [facility] 05-23-2022 23:39-0400 Body mass index (BMI) [Ratio] 29.6 kg/m2 Dr. Fernando Cortez Work Phone: [facility] 04-24-2022 00:33-0400 Body mass index (BMI) [Ratio] 29.6 kg/m2 Dr. Fernando Cortez Work Phone: [facility] Work Phone: 03-23-2022 03:17-0400 Body mass index (BMI) [Ratio] 29.6 kg/m2 Dr. Fernando Cortez Work Phone: [facility] Work Phone: 02-21-2022 07:57-0400 Body mass index (BMI) [Ratio] 29.6 kg/m2 Dr. Fernando Cortez Work Phone: [facility] Work Phone: 02-04-2022 09:40-0400 Body height 175.[address] Fernando Cortez Work Phone: [facility] Work Phone: 02-04-2022 09:40-0400 Body mass index (BMI) [Ratio] 26.6 kg/m2 Dr. Fernando Cortez Work Phone: [facility] Work Phone: 02-04-2022 09:40-0400 Body weight 81.[address] Fernando Cortez Work Phone: [facility] Work Phone: 02-04-2022 09:40-0400 Diastolic blood pressure 70 mm[Hg] Dr. Fernando Cortez Work Phone: [facility] Work Phone: 02-04-2022 09:40-0400 Heart rate 64 /min Dr. Fernando Cortez Work Phone: [facility] Work Phone: 02-04-2022 09:40-0400 Respiratory rate 16 /min Dr. Fernando Cortez Work Phone: [facility] Work Phone: 02-04-2022 09:40-0400 SaO2% (BldA) [Mass fraction] 95 % Dr. Fernando Cortez Work Phone: [facility] Work Phone: 02-04-2022 09:40-0400 Systolic blood pressure 144 mm[Hg] Dr. Fernando Cortez Work Phone: [facility] Work Phone: 01-21-2022 21:33-0400 Body mass index (BMI) [Ratio] 29.6 kg/m2 Dr. Fernando Cortez Work Phone: [facility] Work Phone: 09-26-2021 07:45-0500 Body height 175.[address] Fernando Cortez Work Phone: [facility] Work Phone: 09-26-2021 07:45-0500 Body mass index (BMI) [Ratio] 27.8 kg/m2 Dr. Fernando Cortez Work Phone: [facility] Work Phone: 09-26-2021 07:45-0500 Body weight 85.[address] Fernando Cortez Work Phone: [facility] Work Phone: 09-26-2021 07:45-0500 Diastolic blood pressure 73 mm[Hg] Dr. Fernando Cortez Work Phone: [facility] Work Phone: 09-26-2021 07:45-0500 Heart rate 64 /min Dr. Fernando Cortez Work Phone: [facility] Work Phone: 09-26-2021 07:45-0500 Respiratory rate 16 /min Dr. Fernando Cortez Work Phone: [facility] Work Phone: 09-26-2021 07:45-0500 SaO2% (BldA) [Mass fraction] 96 % Dr. Fernando Cortez Work Phone: [facility] Work Phone: 09-26-2021 07:45-0500 Systolic blood pressure 157 mm[Hg] Dr. Fernando Cortez Work Phone: [facility] Work Phone: 08-26-2021 02:44-0500 Body mass index (BMI) [Ratio] 29.6 kg/m2 Dr. Fernando Cortez Work Phone: [facility] Work Phone: 08-26-2021 01:44-0500 Body mass index (BMI) [Ratio] 29.6 kg/m2 Dr. Fernando Cortez Work Phone: [facility] Work Phone: 04-03-2017 12:29-0400 BMI (Body Mass Index) 32.09 kg/m2 [facility] Work Phone: 04-03-2017 12:29-0400 BP Diastolic 62 mm[Hg] Estefania [facility] Work Phone: 04-03-2017 12:29-0400 BP Systolic 140 mm[Hg] Estefania Bernard [facility] Work Phone: 04-03-2017 12:29-0400 Height 162.56 cm Estefania Bernard [facility] Work Phone: 04-03-2017 12:29-0400 Pulse (Heart Rate) 78 /min Estefania Bernard [facility] Work Phone: 04-03-2017 12:29-0400 Respiratory Rate 18 /min Estefania Bernard [facility] Work Phone: 04-03-2017 12:29-0400 Weight 84.82 kg Estefania Bernard [facility] Work Phone: 11-14-2016 09:31-0400 BMI (Body Mass Index) 33.47 kg/m2 Kelli Badillo RN [facility] Work Phone: 11-14-2016 09:31-0400 BP Diastolic 80 mm[Hg] Kelli Badillo [facility] Work Phone: 11-14-2016 09:31-0400 BP Systolic 134 mm[Hg] Kelli Badillo RN [facility] Work Phone: 11-14-2016 09:31-0400 Height 162.56 cm Kelli Badillo RN [facility] Work Phone: 11-14-2016 09:31-0400 Pulse (Heart Rate) 78 /min [facility] Work Phone: 11-14-2016 09:31-0400 Respiratory Rate 18 /min [facility] Work Phone: 11-14-2016 09:31-0400 Weight 88.45 kg Kelli Badillo RN [facility] Work Phone: 08-28-2016 08:56-0500 BSA (Body Surface Area) 1.95 m2 Kelli Badillo RN [facility] Work Phone: 10-08-2015 14:09-0500 Heart rate 67 /min [facility] Work Phone: 06-08-2014 10:03-0400 Heart rate 433 ms Kelli Badillo RN [facility] Work Phone: 01-09-2014 14:31-0400 Body Temperature 98.3 [degF] Kelli [facility] Work Phone: Encounters Encounter Date Encounter Type Care Provider Facility Start: 04-17-2025 ambulatory Kelli ARECHIGA Facility:[facility] Start: 04-07-2025 ambulatory George Hood Facili ty:[facility] Start: 03-24-2025 ambulatory Ana Laura Marquis Facility:[facility] Start: 03-17-2025 End: 03-17-2025 Patient encounter procedure Kelli Vivas PA -[facility] Work Phone: Start: 03-17-2025 End: 03-23-[address] Bashir Cortez MD Work Phone: [facility] Start: 03-17-2025 End: 03-23-[address] Albert Mojica MD -Laboratory Work Phone: Start: 03-17-[address] Albert Mojica MD -Laboratory Work Phone: Start: 03-13-[address] Albert Mojica MD -Laboratory Work Phone: Start: 03-10-2025 End: 03-10-[address] Bashir Cortez MD Work Phone: -Laboratory Start: 03-10-2025 End: 03-10-[address] George Hood MD -Laboratory Work Phone: Start: 03-10-2025 End: 03-10-2025 ambulatory George Hood Facility:[facility] Start: 03-06-[address] Albert Mojica MD -Laboratory Work Phone: Start: 03-02-2025 Non-patient / Non-visit Dr. Mike wong MD -[facility] Start: 03-02-2025 End: 03-02-[address] Bashir Cortez MD Work Phone: -Cardiovascular Services Start: 03-02-2025 End: 03-02-[address] Smith Pichardo MD -Cardiovascular Services Work Phone: Start: 03-02-2025 End: 03-02-2025 ambulatory Smith Pichardo Facility:[facility] Start: 02-07-2025 End: 02-07-[address] Albert Mojica MD -[facility] Work Phone: Start: 02-07-2025 End: 02-07-[address] Bashir Cortez MD Work Phone: [facility] Work Phone: Start: 02-06-2025 Non-patient / Non-visit Dr. Frannie WAGONER -[facility] Start: 02-06-2025 End: 02-07-[address] Bashir Cortez MD Work Phone: [facility] Work Phone: Start: 02-06-2025 End: 02-06-[address] Albert Mojica MD -Cardiovascular Services Work Phone: Start: 02-06-2025 End: 02-06-2025 ambulatory Albert Mojica Facility:[facility] Start: 01-21-2025 End: 01-21-[address] Bashir Cortez MD Work Phone: [facility] Work Phone: Start: 01-21-2025 End: 01-21-[address] George Hood MD -Laboratory Work Phone: Start: 01-21-2025 End: 01-21-2025 ambulatory George Hood Facility:[facility] Start: 01-09-2025 End: 01-09-[address] Chris Bradford MD -[facility] Work Phone: Start: 01-09-2025 End: 01-09-[address] Bashir Cortez MD Work Phone: [facility] Work Phone: Start: 01-04-2025 End: 01-04-[address] Bashir Cortez MD Work Phone: [facility] Work Phone: Start: 01-04-2025 End: 01-04-[address] Bashir Cortez MD -Laboratory [facility] Start: 01-04-2025 End: 01-04-2025 ambulatory Bashir Cortez Facility:[facility] Start: 12-22-2024 End: 12-22-[address] Albert Mojica MD -Laboratory Work Phone: Start: 12-22-[address] Albert Mojica MD -Laboratory Work Phone: Start: 12-22-2024 End: 12-22-[address] Albert Mojica MD -[facility] Work Phone: Start: 12-22-2024 End: 12-22-[address] Bashir Cortez MD Work Phone: [facility] Work Phone: Start: 12-16-2024 End: 12-21-2024 ambulatory Ana Laura Marquis Facility:[facility] Start: 12-16-2024 End: 12-21-[address] Albert Mojica MD -Laboratory Work Phone: Start: 12-06-2024 End: 12-06-[address] Bashir Cortez MD Work Phone: [facility] Work Phone: Start: 12-06-2024 End: 12-06-[address] George Hood MD -[facility] Work Phone: Start: 12-06-2024 End: 12-06-2024 ambulatory George Hood Facility:[facility] Start: 11-29-2024 End: 11-29-[address] Bashir Cortez MD Work Phone: [facility] Work Phone: Start: 11-29-2024 End: 11-29-[address] George Hood MD -[facility] Work Phone: Start: 11-29-2024 End: 11-29-2024 ambulatory George Hood Facility:[facility] Start: [address] Albert Mojica MD -Laboratory Work Phone: Start: 11-21-2024 End: 11-21-[address] Bashir Cortez MD Work Phone: [facility] Work Phone: Start: 11-21-2024 End: 11-21-[address] Albert Mojica MD -Laboratory Work Phone: Start: 10-03-2024 End: 10-03-2024 ambulatory Bashir Cortez Facility:[facility] Start: 10-03-2024 End: 10-03-[address] Bashir Cortez MD -Physical Therapy Work Phone: Start: 08-08-2024 End: 08-08-[address] Albert Mojica MD -Laboratory Work Phone: Start: 08-08-2024 End: 08-08-2024 ambulatory Ana Laura Marquis Facility:[facility] Start: 06-27-2024 End: 06-27-2024 ambulatory Bashir Cortez Facility:[facility] Start: 06-08-2024 ambulatory Gurinder Deshpande AMBULANCE ASSISTANT Facility :[facility] Start: 06-06-2024 ambulatory Albert Mojica Facility:[facility] Start: 06-06-2024 End: 06-06-2024 ambulatory Kelli ARECHIGA Facility:[facility] Start: 05-31-2024 End: 05-31-2024 ambulatory George V Sibilia Facility:[facility] Start: 05-30-2024 End: 05-30-2024 ambulatory George V Sibilia Facility:[facility] Start: 05-28-2024 End: 05-28-2024 ambulatory George V Sibilia Facility:[facility] Start: 05-24-2024 End: 05-24-2024 ambulatory Ana Laura Marquis Facility:[facility] Start: 05-24-2024 End: 05-24-2024 ambulatory Kelli ARECHIGA Facility:[facility] Start: 05-16-2024 End: 05-16-2024 ambulatory George V Sibilia Facility:[facility] Start: 04-11-2024 End: 04-11-2024 ambulatory Bashir Cortez Facility:[facility] Start: 12-22-2023 End: 12-22-[address] Bashir Cortez Work Phone: [facility] Work Phone: Start: 12-22-2023 End: 12-22-[address] Bashir Cortez Work Phone[facility] Start: 12-18-2023 End: 12-18-[address] Bashir Cortez Work Phone: [facility] Work Phone: Start: 12-16-2023 End: 12-16-[address] Bashir Cortez Work Phone: [facility] Work Phone: Start: 12-15-2023 End: 12-15-[address] Bashir Cortez Work Phone: [facility] Work Phone: Start: 11-12-2023 End: 11-22-[address] Fernando Cortez Work Phone: [facility] Work Phone: Start: 11-12-2023 End: 11-22-[address] Fernando Cortez Work Phone: [facility]-Laboratory Work Phone: Start: 08-25-2023 End: 08-25-[address] Fernando Cortez Work Phone: [facility] Work Phone: Start: 08-25-2023 End: 08-25-[address] Fernando Cortez Work Phone: [facility] Work Phone: Start: 08-11-2023 Non-patient / Non-visit Dr. Jerica Cortez Work Phone: [facility] Start: 08-11-2023 End: 08-11-[address] [facility] Start: 07-09-2023 Telephone encounter Fe Vivas [facility] [place] Comment on above: Insurance Advisor - O ther Start: 07-07-2023 End: 07-07-2023 ambulatory BASHIR CORTEZ Facility:[facility] Start: 07-07-2023 End: 07-07-2023 Patient encounter procedure Sherlyn Zaid STARKEY Work Phone: Audiology Comment on above: Sensorineural hearin g loss, bilateral (Primary Dx) Start: 07-06-2023 End: 07-06-[address] Fernando Cortez Work Phone: [facility]-Laboratory, [facility] Start: 07-03-2023 Telephone encounter Fe Adanonnell [facility] [place] Comment on above: Insurance Advisor - O ther Start: 06-23-2023 End: 06-23-2023 ambulatory MIHAELA HERNANDEZ Facility:[facility] Start: 06-23-2023 End: 06-23-2023 Patient encounter procedure Mihaela Hernandez MD Work Phone: Otolaryngology Comment on above: Sensorineural hearin g loss (SNHL) of both ears (Primary Dx); Imbalance Sensorineural hearin g loss, bilateral (Primary Dx) Start: 06-16-[address] Bruna Cortez Work Phone: [facility] Start: 06-16-2023 End: 06-16-[address] Fernando Cortez Work Phone: [facility] Work Phone: Start: 06-16-2023 End: 06-16-[address] Fernando Cortez Work Phone: [facility]-Laboratory Work Phone: Start: 06-16-2023 End: 06-16-2023 Encounter for other preprocedural examination Dr. Fernando Cortez Work Phone: [facility] Start: 06-16-2023 End: 06-16-[address] Fernando Cortez Work Phone: [facility] Work Phone: Start: 04-11-2023 End: 04-11-[address] Fernando Cortez Work Phone: [facility] Work Phone: Start: 04-11-2023 End: 04-11-[address] [facility] Start: 03-06-2023 End: 03-23-[address] Fernando Cortez Work Phone: [facility] Work Phone: Start: 03-06-2023 End: 03-23-[address] [facility] Start: 02-09-2023 End: 02-09-[address] Fernando Cortez Work Phone: [facility] Work Phone: Start: 02-09-2023 End: 02-09-[address] [facility] Start: 01-20-2023 End: 01-21-[address] Fernando Cortez Work Phone: [facility] Work Phone: Start: 01-20-2023 End: 01-21-[address] [facility] Start: 01-02-2023 End: 01-02-[address] [facility] Start: 12-30-2022 End: 12-30-[address] Fernando Cortez Work Phone: [facility] Start: 10-06-2022 End: 10-06-2022 ambulatory BASHIR CORTEZ Facility:[facility] Start: 10-06-2022 End: 10-06-2022 Patient encounter procedure George Galloway MD Work Phone: [facility] Cardiology [place] Comment on above: Persistent atrial fi brillation (HCC) (Primary Dx); History of radiofrequency ablation (RFA) procedure for cardiac arrhythmia; Bradycardia; Chronic diastolic heart failure (HCC); At risk for stroke; Current use of half-way anticoagulation Start: 10-02-2022 End: 10-02-[address] Fernando Cortez Work Phone: [facility] Work Phone: Start: 10-02-2022 End: 10-02-[address] Fernando Cortez Work Phone: [facility]-Physical Therapy Start: 09-18-2022 End: 09-18-[address] Fernando Cortez Work Phone: [facility] Start: 09-03-2022 End: 09-03-2022 ambulatory BASHIR CORTEZ Facility:[facility] Start: 09-03-2022 End: 09-03-2022 Patient encounter procedure Sweta Jenkins APRN.CNP Work Phone: [facility] Comment on above: SDH (subdural hemato ma) (Primary Dx); Subarachnoid hemorrhage following injury, no loss of consciousness, subsequent encounter Start: 09-03-2022 End: 09-03-2022 Subsequent hospital visit by physician [facility]Spine RADIO CT SCAN [place] ATTENDANT CHILD ACTIVITY Comment on above: SDH (subdural hemato ma) [S06.5XAA] Start: 08-11-2022 End: 08-11-2022 ambulatory SWETA JENKINS Facility:[facility] Start: 08-11-2022 End: 08-11-2022 Patient encounter procedure Jose Corona MD Work Phone: Neurology Comment on above: 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 Fernando Cortez Work Phone: [facility] Start: 07-24-2022 Telephone encounter Beatrice gupta APRN.CARE MANAGEMENT COORDINATOR Work Phone: [place] [facility] Comment on above: Appointment Start: 07-21-2022 End: 07-24-2022 Evaluation and management of inpatient ALLISON LOPEZ Facility:[facility] Start: 07-21-2022 End: 07-21-2022 Emergency department patient visit [facility]-Emergency Department Start: 05-13-2022 End: 05-13-[address] Fernando Cortez Work Phone: [facility] Work Phone: Start: 05-13-2022 End: 05-13-[address] Fernando Cortez Work Phone: [facility]-Laboratory Start: 04-08-2022 End: 04-08-[address] Fernando Cortez Work Phone: [facility] Work Phone: Start: 04-08-2022 End: 04-08-[address] Fernando Cortez Work Phone: [facility]-Laboratory Start: 03-21-2022 End: 03-23-[address] Fernando Cortez Work Phone: [facility]-Laboratory Start: 02-18-2022 End: 02-18-[address] Fernando Cortez Work Phone: [facility] Start: 02-17-2022 End: 02-17-[address] [facility] Start: 02-07-2022 End: 02-07-[address] Fernando Cortez Work Phone: [facility] Start: 02-04-2022 End: 02-04-[address] Fernando Cortez Work Phone: [facility] Start: 02-03-[address] Ruben Cortez Work Phone: [facility] Start: 01-21-2022 End: 01-21-[address] Fernando Cortez Work Phone: [facility] Start: 09-26-2021 End: 09-26-[address] Fernando Cortez Work Phone: [facility] Start: 09-10-2021 ambulatory BASHIR Ellis cility:[facility] Procedures Date Procedure Procedure Detail Performing Clinician Start: 01-21-[address] Kenyatta Cortez MD Work Phone: Comment on above: Presence of monoclon al protein is unclear at this time. Suggestrepeat in 3 to 6 months if clinically indicated.Performed at: [address] [id number] Director: Phil Champion PhD, Phone: [phone] Start: 01-21-2025 Albumin/Globulin ratio Dr. Bashir Cortez MD Work Phone: Start: 01-21-[address] Bashir Cortez MD Work Phone: Start: 12-06-[address] Stefania Cortez MD Work Phone: Comment on above: Negative <1:80 Borde rline 1:80 Positive >1:80ICAP nomenclature: [id number] more information about Hep-2 cell patterns useANApatterns.org, the official website for theInternational Consensus on Antinuclear Antibody (KRISTIN)Patterns (ICAP).Speckled cytoplasmic fluorescence is present. Theantibodies noted in this pattern may be associated with,but not restricted to, primary biliary cirrhosis (PBC),polymyositis and dermatomyositis (PM/DM), and/or systemiclupus erythematosus (SLE).Performed at: [address] [id number] Director: Phil Champion PhD, Phone: [phone] Start: 12-06-[address] Kenyatta Cortez MD Work Phone: Comment on above: The atypical pANCA p attern has been observed in asignificant percentage of patients with ulcerative colitis,primary sclerosing cholangitis and autoimmune hepatitis. Start: 12-06-2024 Antibody to lupus La protein measurement Dr. Bashir Cortez MD Work Phone: Comment on above: Previous reported re sult: TNP AIEdited by: INFSHELLY on 12/07/24:1508 AMENDED REPORT 12/07/24 1508 Anti-SS-B previously reported as: Test not performed Start: 12-06-2024 Antibody to SS-A measurement Dr. Bashir Cortez MD Work Phone: Comment on above: Previous reported re sult: TNP AIEdited by: INFCE on 12/07/24:1508 AMENDED REPORT 12/07/24 1508 Anti-SS-A previously reported as: Test not performed Start: 12-06-[address] Manish Cortez MD Work Phone: Comment on above: TEST RESULTS LIMITSA nti-Synthetase Profile (RDL) Anti-Marisel-1 Ab (RDL) <20 Units <20 Anti-PL-7 Ab (RDL), Negative Negative Anti-PL-12 Ab (RDL), Negative Negative Anti-EJ Ab (RDL), Negative Negative Anti-OJ Ab (RDL), Negative Negative Interpretation for Anti-Marisel-1: Negative: <20 Weak Positive: 20 - 39 Moderate Positive: 40 - 80 Strong Positive: >80 Given overlapping phenotypes, autoantibody positivity should be interpreted in the context of clinical and other laboratory findings. TESTING PERFORMED AT [facility]. ORIGINAL REPORT ON FILE IN LAB CONTAINS ADDITIONAL TEST SITE INFORMATION. _ Start: 12-06-[address] MAGISTRATE antibody measurement Dr. Bashir Cortez MD Work Phone: Comment on above: Previous reported re sult: TNP AIEdited by: TYLER on 12/07/24:1508 AMENDED REPORT 12/07/[address] MAGISTRATE Ab previously reported as: Test not performed Start: 12-06-[address] Bashir Cortez MD Work Phone: Comment on above: Antibody Result: Int erpretationNon-Reactive: Non- ImmuneReactive: ImmuneThe following results were obtained with the [employer] Rubella IgG assay. Results from assays of other manufacturers cannot be used interchangeably. Start: 11-29-2024 CT of chest without contrast Dr. Bashir Cortez MD Work Phone: Start: 08-25-2023 MRI of brain without contrast Dr. Fernando Cortez Work Phone: Start: 06-23-2023 HEARING TEST/AUDIOGRAM Aspen Starkey, CCC-A Work Phone: Start: 10-06-2022 Ecg routine ecg w/le ast 12 lds w/i&r George Galloway MD Work Phone: Start: 08-06-2022 Ct head/brain w/o contrast material Gurinder Corona TOP CUTTER.CARE MANAGEMENT COORDINATOR Work Phone: Start: 07-21-2022 Plain chest X-ray Start: 07-21-2022 CT angiography of he ad and neck Start: 07-21-2022 CT of head without contrast Start: 04-03-2017 End: 04-03-2017 Dietary management education, guidance, and counseling Estefania Bernard Start: 01-30-2017 End: 02-03-2017 *SHRUTHI Mojica MD Start: 01-30-2017 End: 02-02-2017 INR in Platelet poor plasma by Coagulation assay Albert Mojica MD Start: 01-30-2017 End: 02-03-2017 *SHRUTHI Mojica MD Start: 01-30-2017 End: 02-02-2017 Coagulation factor induced.INR assay in platelet poor plasma Albert Mojica MD Start: 11-14-2016 End: 11-17-2016 *SHRUTHI Mojica MD Start: 11-14-2016 End: 11-14-2016 QUANG Mojica MD Start: 11-14-2016 End: 11-14-2016 Follow Up Appt 4 months Giovany Hutton Start: 11-14-2016 End: 11-14-2016 Dietary management education, guidance, and counseling Kelli Badillo RN Start: 11-14-2016 End: 11-17-2016 *SHRUTHI Mojica MD Start: 11-14-2016 End: 11-14-2016 QUANG Mojica MD Start: 11-14-2016 End: 11-14-2016 Follow Up Appt 4 months Giovany Hutton Start: 10-27-2016 End: 10-29-2016 *SHRUTHI Rivero NP Work Phone: Start: 10-27-2016 End: 10-29-2016 *SHRUTHI Rivero AMBULANCE ASSISTANT Work Phone: Start: 10-01-2016 End: 10-01-2016 *SHRUTHI Mojica MD Start: 10-01-2016 End: 10-01-2016 *SHRUTHI Mojica MD Start: 09-11-2016 End: 09-11-2016 *SHRUTHI Mojica MD Start: 09-11-2016 End: 09-11-2016 *SHRUTHI Mojica MD Start: 08-28-2016 End: 08-28-2016 *SHRUTHI Mojica MD Start: 08-28-2016 End: 08-28-2016 Follow Up Appt 6 months Giovany Hutton Start: 08-28-2016 End: 08-28-2016 MMGiovany Mojica MD Start: 08-28-2016 End: 08-28-2016 *SHRUTHI Mojica MD Start: 08-28-2016 End: 08-28-2016 Follow Up Appt 6 months Giovany Hutton Start: 08-28-2016 End: 08-28-2016 MMGiovany Mojica MD Start: 07-25-2016 End: 07-25-2016 *SHRUTHI Mojica MD Start: 07-25-2016 End: 07-25-2016 *CBC with Differential Albert Mojica MD Start: 07-25-2016 End: 07-25-2016 QUANG Mojica MD Start: 07-25-2016 End: 07-25-2016 Follow Up Appt 6 months Giovany Hutton Start: 07-25-2016 End: 07-25-2016 Natriuretic peptide B [Mass/volume] in Blood Albert Mojica MD Start: 07-25-2016 End: 07-30-2016 Nuclear stress test -exercise Albert Mojica MD Start: 07-25-2016 End: 07-25-2016 *BMP Albert Mojica MD Start: 07-25-2016 End: 07-25-2016 *CBC with Differential Albert Mojica MD Start: 07-25-2016 End: 07-25-2016 BNP Albert Mojica MD Start: 07-25-2016 End: 07-25-2016 TREADLE CUT OFF SAW OPERATOR Albert Mojica MD Start: 07-25-2016 End: 07-25-2016 Follow Up Appt 6 months Giovany Hutton Start: 07-25-2016 End: 07-30-2016 Nuclear stress test -exercise Albert Mojica MD Start: 02-29-2016 End: 02-29-2016 QUANG Mojica MD Start: 02-29-2016 End: 02-29-2016 Follow Up Appt 6 months Giovany Hutton Start: 02-29-2016 End: 02-29-2016 QUANG Mojica MD Start: 02-29-2016 End: 02-29-2016 Follow Up Appt 6 months Giovany Hutton Start: 02-22-2016 End: 02-23-2016 SNOMED-CT: [id number] Confirmatory consultation report Albert Mojica MD Start: 02-22-2016 End: 02-23-2016 SNOMED-CT: [id number] Confirmatory consultation report Albert Mojica MD Start: 12-20-2015 End: 08-28-2016 Complete sleep workup (PSG,CPAP as indicated) & Follow up Albert Mojica MD Start: 12-20-2015 End: 12-20-2015 TREADLE CUT OFF SAW OPERATOR Albert Mojica MD Start: 12-20-2015 End: 01-04-2016 Echocardiography Albert Mojica MD Start: 12-20-2015 End: 12-20-2015 Follow Up Appt 2 months Giovany Hutton Start: 12-20-2015 End: 08-28-2016 Follow Up Appt Other Albert Mojica MD Start: 12-20-2015 End: 12-21-2015 Referral to construction plumber Albert Mojica MD Start: 12-20-2015 End: 08-28-2016 Complete sleep workup (PSG,CPAP as indicated) & Follow up Albert Mojica MD Start: 12-20-2015 End: 12-20-2015 TREADLE CUT OFF SAW OPERATOR Albert Mojica MD Start: 12-20-2015 End: 01-04-2016 Echocardiography Albert Mojica MD Start: 12-20-2015 End: 12-20-2015 Follow Up Appt 2 months Giovany Hutton Start: 12-20-2015 End: 08-28-2016 Follow Up Appt Other Albert Mojica MD Start: 12-20-2015 Radiofrequency ablat ion operation for arrhythmia Hx of radiofreq ablation arrhythmia focus Kelli Badillo RN Start: 12-20-2015 End: 12-21-2015 Referral to construction plumber Albert Mojica MD Start: 10-08-2015 End: 01-04-2016 Ecg routine ecg w/least 12 lds w/i&r Albert Mojica MD Start: 10-08-2015 End: 01-04-2016 Electrocardiogram, complete Albert Mojica MD Start: 05-24-2015 End: 05-24-2015 QUANG Mojica MD Start: 05-24-2015 End: 05-25-2015 Documentation of current medications Albert Mojica MD Start: 05-24-2015 End: 05-24-2015 Follow Up Appt 6 months Giovany Hutton Start: 05-24-2015 End: 05-24-2015 QUANG Mojica MD Start: 05-24-2015 End: 05-25-2015 Documentation of current medications Albert Mojica MD Start: 05-24-2015 End: 05-24-2015 Follow Up Appt 6 months Giovany Hutton Start: 01-25-2015 End: 01-25-2015 QUANG Mojica MD Start: 01-25-2015 End: 01-26-2015 Documentation of current medications Albert Mojica MD Start: 01-25-2015 End: 01-25-2015 Ecg routine ecg w/least 12 lds w/i&r Albert Mojica MD Start: 01-25-2015 End: 01-25-2015 Follow Up Appt 4 months Giovany Hutton Start: 01-25-2015 End: 01-25-2015 QUANG Mojica MD Start: 01-25-2015 End: 01-26-2015 Documentation of current medications Albert Mojica MD Start: 01-25-2015 End: 01-25-2015 Electrocardiogram, complete Albert Mojica MD Start: 01-25-2015 End: 01-25-2015 Follow Up Appt 4 months Giovany Hutton Start: 01-12-2015 End: 05-24-2015 INR in Platelet poor plasma by Coagulation assay Albert Mojica MD Start: 01-12-2015 End: 05-24-2015 Coagulation factor induced.INR assay in platelet poor plasma Albert Mojica MD Start: 11-13-2014 End: 05-24-2015 INR in Platelet poor plasma by Coagulation assay Albert Mojica MD Start: 11-13-2014 End: 05-24-2015 Coagulation factor induced.INR assay in platelet poor plasma Albert Mojica MD Start: 10-03-2014 End: 11-13-2016 Therapeutic drug monitoring assay Encounter for therapeutic drug monitoring Kelli Badillo RN Start: 08-10-2014 End: 08-10-2014 QUANG Mojica MD Start: 08-10-2014 End: 05-24-2015 Ecg routine ecg w/least 12 lds w/i&r Albert Mojica MD Start: 08-10-2014 End: 08-10-2014 Follow Up Appt 3 months Giovany Hutton Start: 08-10-2014 End: 08-10-2014 QUANG Mojica MD Start: 08-10-2014 End: 05-24-2015 Electrocardiogram, complete Albert Mojica MD Start: 08-10-2014 End: 08-10-2014 Follow Up Appt 3 months Giovany Hutton Start: 06-27-2014 End: 06-27-2014 Ecg routine ecg w/least 12 lds w/i&r Albert Mojica MD Start: 06-27-2014 End: 01-04-2016 EPS Referral Albert Mojica MD Start: 06-27-2014 End: 06-27-2014 Electrocardiogram, complete Albert Mojica MD Start: 06-27-2014 End: 01-04-2016 EPS Referral Albert Mojica MD Start: 06-08-2014 End: 06-15-2014 *BMP Albert Mojica MD Start: 06-08-2014 End: 06-21-2014 Cardioversion Albert Mojica MD Start: 06-08-2014 End: 06-08-2014 TREADLE CUT OFF SAW OPERATOR Albert Mojica MD Start: 06-08-2014 End: 06-09-2014 Documentation of current medications Albert Mojica MD Start: 06-08-2014 End: 06-08-2014 Ecg routine ecg w/least 12 lds w/i&r Albert Mojica MD Start: 06-08-2014 End: 06-08-2014 Follow Up Appt 2 months Giovany Hutton Start: 06-08-2014 End: 06-15-2014 INR in Platelet poor plasma by Coagulation assay Albert Mojica MD Start: 06-08-2014 End: 06-15-2014 *BMP Albert Mojica MD Start: 06-08-2014 End: 06-21-2014 Cardioversion Albert Mojica MD Start: 06-08-2014 End: 06-15-2014 Coagulation factor induced.INR assay in platelet poor plasma Albert Mojica MD Start: 06-08-2014 End: 06-08-2014 TREADLE CUT OFF SAW OPERATOR Albert Mojica MD Start: 06-08-2014 End: 06-09-2014 Documentation of current medications Albert Mojica MD Start: 06-08-2014 End: 06-08-2014 Electrocardiogram, complete Albert Mojica MD Start: 06-08-2014 End: 06-08-2014 Follow Up Appt 2 months Giovany Hutton Start: 05-24-2014 End: 01-04-2016 *Hepatic Function Panel Kelli Vivas PA-C Work Phone: Start: 05-24-2014 End: 01-04-2016 Lipid 1996 panel - Serum or Plasma Kelli Vivas PA-C Work Phone: Start: 05-24-2014 End: 01-04-2016 *Hepatic Function Panel Kelli Vivas PA-C Work Phone: Start: 05-24-2014 End: 01-04-2016 Lipid panel [AGGREGATE] Kelli Vivas PA-C Work Phone: Start: 05-23-2014 End: 05-23-2014 Ecg routine ecg w/least 12 lds w/i&r Albert Mojica MD Start: 05-23-2014 End: 05-23-2014 Electrocardiogram, complete Albert Mojica MD Start: 01-06-2014 End: 01-09-2014 TREADLE CUT OFF SAW OPERATOR Albert Mojica MD Start: 01-06-2014 End: 01-09-2014 Follow Up Appt 6 months Giovany Hutton Start: 01-06-2014 End: 01-09-2014 QUANG Mojica MD Start: 01-06-2014 End: 01-09-2014 Follow Up Appt 6 months Giovany Hutton Start: 01-06-2014 End: 05-24-2015 Preoperative cardiovascular examination PRE-OPERATIVE CARDIOVASCULAR EXAMINATION Kelli Badillo RN Start: 11-22-2013 End: 11-23-2013 *Hepatic Function Panel Giovany Hutton Start: 11-22-2013 End: 11-23-2013 Lipid 1996 panel - Serum or Plasma Albert Mojica MD Start: 11-22-2013 End: 11-23-2013 *Hepatic Function Panel Giovany Hutton Start: 11-22-2013 End: 11-23-2013 Lipid panel [AGGREGATE] Giovany Hutton Start: 10-04-2013 End: 11-23-2013 INR in Platelet poor plasma by Coagulation assay Albert Mojica MD Start: 10-04-2013 End: 11-23-2013 Coagulation factor induced.INR assay in platelet poor plasma Albert Mojica MD Start: 08-24-2013 End: 11-13-2014 INR in Platelet poor plasma by Coagulation assay Albert Mojica MD Start: 08-24-2013 End: 11-13-2014 INR in Platelet poor plasma by Coagulation assay Albert Mojica MD Start: 08-24-2013 End: 11-13-2014 Lipid panel [AGGREGATE] Giovany Hutton Start: 07-05-2013 End: 10-04-2013 QUANG Mojica MD Start: 07-05-2013 End: 10-04-2013 Follow Up Appt 6 months Giovany Hutton Start: 07-05-2013 End: 10-04-2013 QUANG Mojica MD Start: 07-05-2013 End: 10-04-2013 Follow Up Appt 6 months Giovany Hutton Start: 03-15-2013 End: 10-04-2013 Ecg routine ecg w/least 12 lds w/i&r Albert Mojica MD Start: 03-15-2013 End: 10-04-2013 Electrocardiogram, complete Albert Mojica MD Start: 03-03-2013 End: 03-03-2013 Nurse, Teaching, Wound Check (no charge) Albert Mojica MD Start: 03-03-2013 End: 03-03-2013 Nurse, Teaching, Wound Check (no charge) Albert Mojica MD Start: 03-01-2013 End: 03-03-2013 *SHRUTHI Mojica MD Start: 03-01-2013 End: 10-04-2013 Cardioversion Albert Mojica MD Start: 03-01-2013 End: 10-04-2013 Ecg routine ecg w/least 12 lds w/i&r Albert Mojica MD Start: 03-01-2013 End: 10-04-2013 INR in Platelet poor plasma by Coagulation assay Albert Mojica MD Start: 03-01-2013 End: 03-03-2013 *SHRUTHI Mojica MD Start: 03-01-2013 End: 10-04-2013 Cardioversion Albert Mojica MD Start: 03-01-2013 End: 10-04-2013 Coagulation factor induced.INR assay in platelet poor plasma Albert Mojica MD Start: 03-01-2013 End: 10-04-2013 Electrocardiogram, complete Albert Mojica MD Start: 01-20-2013 End: 01-20-2013 QUANG Mojica MD Start: 01-20-2013 End: 01-20-2013 Ecg routine ecg w/least 12 lds w/i&r Albert Mojica MD Start: 01-20-2013 End: 01-31-2013 Echocardiography Albert Mojica MD Start: 01-20-2013 End: 01-20-2013 Follow Up Appt 6 weeks Albert Mojica MD Start: 01-20-2013 End: 01-31-2013 Nuclear stress test -exercise Albert Mojica MD Start: 01-20-2013 End: 01-20-2013 Coagulation factor induced.INR assay in platelet poor plasma Albert Mojica MD Start: 01-20-2013 End: 01-20-2013 QUANG Mojica MD Start: 01-20-2013 End: 01-31-2013 Echocardiography Albert Mojica MD Start: 01-20-2013 End: 01-20-2013 Follow Up Appt 6 weeks Albert Mojica MD Start: 01-20-2013 End: 01-31-2013 Nuclear stress test -exercise Albert oMjica MD Start: 12-02-2012 End: 10-04-2013 INR in Platelet poor plasma by Coagulation assay Albert Mojica MD Start: 12-02-2012 End: 10-04-2013 Coagulation factor induced.INR assay in platelet poor plasma Albert Mojica MD Start: 09-25-2012 End: 12-02-2012 INR in Platelet poor plasma by Coagulation assay Cooper Woo MD Start: 09-25-2012 End: 12-02-2012 Coagulation factor induced.INR assay in platelet poor plasma Cooper Woo MD Start: 07-01-2012 End: 10-04-2013 *Hepatic Function Panel Cooper Woo MD Start: 07-01-2012 End: 07-01-2012 Ecg routine ecg w/least 12 lds w/i&r Cooper Woo MD Start: 07-01-2012 End: 07-01-2012 Follow Up Appt 6 months Cooper Woo MD Start: 07-01-2012 End: 10-04-2013 Lipid 1996 panel - Serum or Plasma Cooper Woo MD Start: 07-01-2012 End: 07-01-2012 Coagulation factor induced.INR assay in platelet poor plasma Cooper Woo MD Start: 07-01-2012 End: 07-01-2012 Follow Up Appt 6 months Cooper Woo MD Start: 06-30-2012 End: 10-04-2013 *Hepatic Function Panel Cooper Woo MD Start: 06-30-2012 End: 10-04-2013 Lipid panel [AGGREGATE] Cooper Woo MD Start: 06-30-2012 End: 07-01-2012 *Hepatic Function Panel Cooper Woo MD Start: 06-30-2012 End: 07-01-2012 Lipid panel [AGGREGATE] Cooper Woo MD Start: 12-25-2011 End: 04-01-2012 Echocardiography Cooper Woo MD Start: 12-25-2011 End: 12-25-2011 Follow Up Appt 6 months Cooper Woo MD Start: 12-25-2011 End: 04-01-2012 Echocardiography Cooper Woo MD Start: 12-25-2011 End: 12-25-2011 Follow Up Appt 6 months Cooper Woo MD Start: 10-20-2011 End: 12-25-2011 INR in Platelet poor plasma by Coagulation assay Cooper Woo MD Start: 10-20-2011 End: 12-25-2011 Coagulation factor induced.INR assay in platelet poor plasma Cooper Woo MD Start: 04-30-2001 History of coronary artery bypass grafting H/O coronary artery bypass surgery Dr. Fernando Cortez Work Phone: Comment on above: CABG x 2 SVG-D1 and SVG-OM w/ AVR using a [address] [employer] 04/30/2001 Plan of Treatment Date Care Activity Detail Author Start: 07-24-2025 DIABETES SCREEN DIABETES SCREEN [facility] Start: 07-24-2025 Diabetes Screening Diabetes Screenin g [facility] Start: 03-17-2025 Evaluation of diagno stic study results [facility] Start: 01-21-2025 Serum immunofixation [facility] Start: 12-06-2024 [facility] Start: 12-22-2023 [place] and lambda lig ht chains [facility] Start: 12-22-2023 Thiamine measurement [facility] Start: 07-22-2023 Hepatitis B surface antibody level LDL CHOLESTEROL [facility] Start: 04-24-2023 Covid-19 Vaccine ( season) Covid-19 Vaccine ( season) [facility] Start: 08-24-2022 ADVANCE DIRECTIVE DISCUSSION ADVANCE DIRECTIVE DISCUSSION [facility] Start: 08-24-2022 DEPRESSION ASSESSMENT DEPRESSION ASS ESSMENT [facility] Start: 07-21-2022 Aspiration precautions [facility] Start: 07-21-2022 Oxygen therapy [facility] Start: 07-21-2022 [facility] Start: 04-24-2022 Influenza vaccination INFLUENZA (#1) [facility] Start: 08-24-2021 ADVANCE DIRECTIVE DISCUSSION ADVANCE DIRECTIVE DISCUSSION [facility] Start: 08-24-2021 DEPRESSION ASSESSMENT DEPRESSION ASS ESSMENT [facility] Start: 12-07-2020 COVID-19 VACCINE (3 - Booster for Moderna series) COVID-19 VACCINE (3 - Booster for Moderna series) [facility] Start: 01-04-2018 End: 07-09-2017 *Hepatic Function Panel *Hepatic Function Panel [facility] Work Phone: Start: 01-04-2018 End: 07-09-2017 Lipid panel [AGGREGATE] *Lipid Profile CC PCP [facility] Work Phone: Start: 01-04-2018 End: 07-09-2017 *Hepatic Function Panel *Hepatic Function Panel [facility] Work Phone: Start: 01-04-2018 End: 07-09-2017 Lipid panel [AGGREGATE] *Lipid Profile CC PCP [facility] Work Phone: Start: 10-06-2017 End: 10-06-2017 Appointment Appointment [facility] Work Phone: Start: 04-03-2017 End: 04-03-2017 Appointment Appointment [facility] Work Phone: Start: 04-03-2017 End: 04-03-2017 Appointment Appointment [facility] Work Phone: Start: 04-03-2017 End: 04-06-2017 TREADLE CUT OFF SAW OPERATOR TREADLE CUT OFF SAW OPERATOR [facility] Work Phone: Start: 04-03-2017 End: 04-06-2017 Follow Up Appt 6 months Follow Up Appt 6 months [facility] Work Phone: Start: 04-03-2017 End: 04-06-2017 TREADLE CUT OFF SAW OPERATOR TREADLE CUT OFF SAW OPERATOR [facility] Work Phone: Start: 04-03-2017 End: 04-06-2017 Follow Up Appt 6 months Follow Up Appt 6 months [facility] Work Phone: Start: 03-10-2017 End: 03-10-2017 INR Coag RelTime (PPP) *PT/INR - Standing Order [facility] Work Phone: Start: 03-10-2017 End: 03-10-2017 Coagulation factor induced.INR assay in platelet poor plasma *PT/INR - Standing Order [facility] Work Phone: Start: 01-30-2017 End: 02-03-2017 *BMP *BMP [facility] Work Phone: Start: 01-30-2017 End: 02-02-2017 INR Coag RelTime (PPP) *PT/INR [facility] Work Phone: Start: 01-30-2017 End: 02-03-2017 *BMP *BMP [facility] Work Phone: Start: 01-30-2017 End: 02-02-2017 Coagulation factor induced.INR assay in platelet poor plasma *PT/INR [facility] Work Phone: Start: 11-14-2016 End: 11-17-2016 *BMP *BMP [facility] Work Phone: Start: 11-14-2016 End: 11-14-2016 TREADLE CUT OFF SAW OPERATOR TREADLE CUT OFF SAW OPERATOR [facility] Work Phone: Start: 11-14-2016 End: 11-14-2016 Follow Up Appt 4 months Follow Up Appt 4 months [facility] Work Phone: Start: 11-14-2016 End: 11-17-2016 *BMP *BMP [facility] Work Phone: Start: 11-14-2016 End: 11-14-2016 TREADLE CUT OFF SAW OPERATOR TREADLE CUT OFF SAW OPERATOR [facility] Work Phone: Start: 11-14-2016 End: 11-14-2016 Follow Up Appt 4 months Follow Up Appt 4 months [facility] Work Phone: Start: 10-27-2016 End: 10-29-2016 *BMP *BMP [facility] Work Phone: Start: 10-27-2016 End: 10-29-2016 *BMP *BMP [facility] Work Phone: Start: 10-01-2016 End: 10-01-2016 *BMP *BMP [facility] Work Phone: Start: 10-01-2016 End: 10-01-2016 *BMP *BMP [facility] Work Phone: Start: 09-11-2016 End: 09-11-2016 *BMP *BMP [facility] Work Phone: Start: 09-11-2016 End: 09-11-2016 *BMP *BMP [facility] Work Phone: Start: 08-28-2016 End: 08-28-2016 *BMP *BMP [facility] Work Phone: Start: 08-28-2016 End: 08-28-2016 Follow Up Appt 6 months Follow Up Appt 6 months [facility] Work Phone: Start: 08-28-2016 End: 08-28-2016 MMM MMM [facility] Work Phone: Start: 08-28-2016 End: 08-28-2016 *BMP *BMP [facility] Work Phone: Start: 08-28-2016 End: 08-28-2016 Follow Up Appt 6 months Follow Up Appt 6 months [facility] Work Phone: Start: 08-28-2016 End: 08-28-2016 MMM MMM [facility] Work Phone: Start: 07-25-2016 End: 07-25-2016 *BMP *BMP [facility] Work Phone: Start: 07-25-2016 End: 07-25-2016 *CBC with Differential *CBC with Differential [facility] Work Phone: Start: 07-25-2016 End: 07-25-2016 BNP *Brain Natriuretic Peptide BNP [facility] Work Phone: Start: 07-25-2016 End: 07-25-2016 TREADLE CUT OFF SAW OPERATOR TREADLE CUT OFF SAW OPERATOR [facility] Work Phone: Start: 07-25-2016 End: 07-25-2016 Follow Up Appt 6 months Follow Up Appt 6 months [facility] Work Phone: Start: 07-25-2016 End: 07-25-2016 Nuclear stress test -exercise Nuclear stress test -exercise [facility] Work Phone: Start: 07-25-2016 End: 07-25-2016 *BMP *BMP [facility] Work Phone: Start: 07-25-2016 End: 07-25-2016 *CBC with Differential *CBC with Differential [facility] Work Phone: Start: 07-25-2016 End: 07-25-2016 BNP *Brain Natriuretic Peptide BNP [facility] Work Phone: Start: 07-25-2016 End: 07-25-2016 TREADLE CUT OFF SAW OPERATOR TREADLE CUT OFF SAW OPERATOR [facility] Work Phone: Start: 07-25-2016 End: 07-25-2016 Follow Up Appt 6 months Follow Up Appt 6 months [facility] Work Phone: Start: 07-25-2016 End: 07-25-2016 Nuclear stress test -exercise Nuclear stress test -exercise [facility] Work Phone: Start: 02-29-2016 End: 02-29-2016 TREADLE CUT OFF SAW OPERATOR TREADLE CUT OFF SAW OPERATOR [facility] Work Phone: Start: 02-29-2016 End: 02-29-2016 Follow Up Appt 6 months Follow Up Appt 6 months [facility] Work Phone: Start: 02-29-2016 End: 02-29-2016 TREADLE CUT OFF SAW OPERATOR TREADLE CUT OFF SAW OPERATOR [facility] Work Phone: Start: 02-29-2016 End: 02-29-2016 Follow Up Appt 6 months Follow Up Appt 6 months [facility] Work Phone: Start: 12-20-2015 End: 12-20-2015 Complete sleep workup (PSG,CPAP as indicated) & Follow up Complete sleep workup (PSG,CPAP as indicated) & Follow up [facility] Work Phone: Start: 12-20-2015 End: 12-20-2015 TREADLE CUT OFF SAW OPERATOR TREADLE CUT OFF SAW OPERATOR [facility] Work Phone: Start: 12-20-2015 End: 12-20-2015 Echocardiography Echocardiogram (complete) [facility] Work Phone: Start: 12-20-2015 End: 12-20-2015 EPS Referral EPS Referral Aniket Castelan [facility] [place], [address] [place] [address], [phone] [facility] Work Phone: Start: 12-20-2015 End: 12-20-2015 Follow Up Appt 2 months Follow Up Appt 2 months [facility] Work Phone: Start: 12-20-2015 End: 08-28-2016 Follow Up Appt Other Follow Up Appt Other [facility] Work Phone: Start: 12-20-2015 End: 12-20-2015 Complete sleep workup (PSG,CPAP as indicated) & Follow up Complete sleep workup (PSG,CPAP as indicated) & Follow up [facility] Work Phone: Start: 12-20-2015 End: 12-20-2015 TREADLE CUT OFF SAW OPERATOR TREADLE CUT OFF SAW OPERATOR [facility] Work Phone: Start: 12-20-2015 End: 12-20-2015 Echocardiography Echocardiogram (complete) [facility] Work Phone: Start: 12-20-2015 End: 12-20-2015 EPS Referral EPS Referral Aniket Castelan [facility] [place], [address] [place] [address], [phone] [facility] Work Phone: Start: 12-20-2015 End: 12-20-2015 Follow Up Appt 2 months Follow Up Appt 2 months [facility] Work Phone: Start: 12-20-2015 End: 08-28-2016 Follow Up Appt Other Follow Up Appt Other [facility] Work Phone: Start: 10-08-2015 End: 01-04-2016 Ecg routine ecg w/least 12 lds w/i&r EKG (In office) [facility] Work Phone: Start: 10-08-2015 End: 01-04-2016 Electrocardiogram, complete EKG (In office) [facility] Work Phone: Start: 05-24-2015 End: 05-24-2015 TREADLE CUT OFF SAW OPERATOR TREADLE CUT OFF SAW OPERATOR [facility] Work Phone: Start: 05-24-2015 End: 05-24-2015 Follow Up Appt 6 months Follow Up Appt 6 months [facility] Work Phone: Start: 05-24-2015 End: 05-24-2015 TREADLE CUT OFF SAW OPERATOR TREADLE CUT OFF SAW OPERATOR [facility] Work Phone: Start: 05-24-2015 End: 05-24-2015 Follow Up Appt 6 months Follow Up Appt 6 months [facility] Work Phone: Start: 01-25-2015 End: 01-25-2015 TREADLE CUT OFF SAW OPERATOR TREADLE CUT OFF SAW OPERATOR [facility] Work Phone: Start: 01-25-2015 End: 01-25-2015 Ecg routine ecg w/least 12 lds w/i&r EKG (In office) [facility] Work Phone: Start: 01-25-2015 End: 01-25-2015 Follow Up Appt 4 months Follow Up Appt 4 months [facility] Work Phone: Start: 01-25-2015 End: 01-25-2015 TREADLE CUT OFF SAW OPERATOR TREADLE CUT OFF SAW OPERATOR [facility] Work Phone: Start: 01-25-2015 End: 01-25-2015 Electrocardiogram, complete EKG (In office) [facility] Work Phone: Start: 01-25-2015 End: 01-25-2015 Follow Up Appt 4 months Follow Up Appt 4 months [facility] Work Phone: Start: 01-12-2015 End: 05-24-2015 INR Coag RelTime (PPP) *PT/INR - Standing Order [facility] Work Phone: Start: 01-12-2015 End: 05-24-2015 Coagulation factor induced.INR assay in platelet poor plasma *PT/INR - Standing Order [facility] Work Phone: Start: 11-13-2014 End: 05-24-2015 INR Coag RelTime (PPP) *PT/INR [facility] Work Phone: Start: 11-13-2014 End: 05-24-2015 Coagulation factor induced.INR assay in platelet poor plasma *PT/INR [facility] Work Phone: Start: 08-10-2014 End: 08-10-2014 [facility] Work Phone: Start: 08-10-2014 End: 05-24-2015 Ecg routine ecg w/least 12 lds w/i&r EKG (In office) [employer] Work Phone: Start: 08-10-2014 End: 08-10-2014 Follow Up Appt 3 months Follow Up Appt 3 months [employer] [facility] Work Phone: Start: 08-10-2014 End: 08-10-2014 TREADLE CUT OFF SAW OPERATOR [facility] Work Phone: Start: 08-10-2014 End: 05-24-2015 Electrocardiogram, complete EKG (In office) [facility] Work Phone: Start: 08-10-2014 End: 08-10-2014 Follow Up Appt 3 months Follow Up Appt [address] [facility] Work Phone: Start: 06-27-2014 End: 06-27-2014 Ecg routine ecg w/least 12 lds w/i&r EKG (In office) [employer] [facility] Work Phone: Start: 06-27-2014 End: 06-27-2014 EPS Referral EPS Referral Aniket Flip, [facility] [place], [address] [place] [address], [phone] [facility] Work Phone: Start: 06-27-2014 End: 06-27-2014 Electrocardiogram, complete EKG (In office) [facility] Work Phone: Start: 06-27-2014 End: 06-27-2014 EPS Referral EPS Referral Aniket Castelan, [facility] [place], [address] [place] [address], [phone] [facility] Work Phone: Start: 06-08-2014 End: 06-15-2014 *BMP *BMP [facility] Work Phone: Start: 06-08-2014 End: 06-08-2014 Cardioversion Cardioversion [facility] Work Phone: Start: 06-08-2014 End: 06-08-2014 TREADLE CUT OFF SAW OPERATOR TREADLE CUT OFF SAW OPERATOR [facility] Work Phone: Start: 06-08-2014 End: 06-08-2014 Ecg routine ecg w/least 12 lds w/i&r EKG (In office) [facility] Work Phone: Start: 06-08-2014 End: 06-08-2014 Follow Up Appt 2 months Follow Up Appt 2 months [facility] Work Phone: Start: 06-08-2014 End: 06-15-2014 INR Coag RelTime (PPP) *PT/INR [facility] Work Phone: Start: 06-08-2014 End: 06-15-2014 *BMP *BMP [facility] Work Phone: Start: 06-08-2014 End: 06-08-2014 Cardioversion Cardioversion [facility] Work Phone: Start: 06-08-2014 End: 06-15-2014 Coagulation factor induced.INR assay in platelet poor plasma *PT/INR [facility] Work Phone: Start: 06-08-2014 End: 06-08-2014 TREADLE CUT OFF SAW OPERATOR TREADLE CUT OFF SAW OPERATOR [facility] Work Phone: Start: 06-08-2014 End: 06-08-2014 Electrocardiogram, complete EKG (In office) [facility] Work Phone: Start: 06-08-2014 End: 06-08-2014 Follow Up Appt 2 months Follow Up Appt 2 months [facility] Work Phone: Start: 05-24-2014 End: 01-04-2016 *Hepatic Function Panel *Hepatic Function Panel [facility] Work Phone: Start: 05-24-2014 End: 01-04-2016 Lipid panel [AGGREGATE] *Lipid Profile CC PCP [facility] Work Phone: Start: 05-24-2014 End: 01-04-2016 *Hepatic Function Panel *Hepatic Function Panel [employer] Work Phone: Start: 05-24-2014 End: 01-04-2016 Lipid panel [AGGREGATE] *Lipid Profile CC PCP [facility] Work Phone: Start: 05-23-2014 End: 05-23-2014 Ecg routine ecg w/least 12 lds w/i&r EKG (In office) [employer] [facility] Work Phone: Start: 05-23-2014 End: 05-23-2014 Electrocardiogram, complete EKG (In office) [facility] Work Phone: Start: 01-06-2014 End: 01-09-2014 TREADLE CUT OFF SAW OPERATOR TREADLE CUT OFF SAW OPERATOR [facility] Work Phone: Start: 01-06-2014 End: 01-09-2014 Follow Up Appt 6 months Follow Up Appt 6 months [facility] Work Phone: Start: 01-06-2014 End: 01-09-2014 TREADLE CUT OFF SAW OPERATOR TREADLE CUT OFF SAW OPERATOR [facility] Work Phone: Start: 01-06-2014 End: 01-09-2014 Follow Up Appt 6 months Follow Up Appt 6 months [facility] Work Phone: Start: 11-22-2013 End: 11-23-2013 *Hepatic Function Panel *Hepatic Function Panel [facility] Work Phone: Start: 11-22-2013 End: 11-23-2013 Lipid panel [AGGREGATE] *Lipid Profile CC PCP [facility] Work Phone: Start: 11-22-2013 End: 11-23-2013 *Hepatic Function Panel *Hepatic Function Panel [facility] Work Phone: Start: 11-22-2013 End: 11-23-2013 Lipid panel [AGGREGATE] *Lipid Profile CC PCP [facility] Work Phone: Start: 10-04-2013 End: 11-23-2013 INR Coag RelTime (PPP) *PT/INR - Standing Order [facility] Work Phone: Start: 10-04-2013 End: 11-23-2013 Coagulation factor induced.INR assay in platelet poor plasma *PT/INR - Standing Order [facility] Work Phone: Start: 08-24-2013 End: 11-13-2014 INR Coag RelTime (PPP) *PT/INR - Standing Order [facility] Work Phone: Start: 08-24-2013 End: 11-13-2014 Coagulation factor induced.INR assay in platelet poor plasma *PT/INR - Standing Order [facility] Work Phone: Start: 07-05-2013 End: 10-04-2013 TREADLE CUT OFF SAW OPERATOR TREADLE CUT OFF SAW OPERATOR [facility] Work Phone: Start: 07-05-2013 End: 10-04-2013 Follow Up Appt 6 months Follow Up Appt 6 months [facility] Work Phone: Start: 07-05-2013 End: 10-04-2013 TREADLE CUT OFF SAW OPERATOR TREADLE CUT OFF SAW OPERATOR [facility] Work Phone: Start: 07-05-2013 End: 10-04-2013 Follow Up Appt 6 months Follow Up Appt 6 months [facility] Work Phone: Start: 03-15-2013 End: 10-04-2013 Ecg routine ecg w/least 12 lds w/i&r EKG (In office) [facility] Work Phone: Start: 03-15-2013 End: 10-04-2013 Electrocardiogram, complete EKG (In office) [facility] Work Phone: Start: 03-01-2013 End: 03-03-2013 *BMP *BMP [facility] Work Phone: Start: 03-01-2013 End: 03-01-2013 Cardioversion Cardioversion [facility] Work Phone: Start: 03-01-2013 End: 10-04-2013 Ecg routine ecg w/least 12 lds w/i&r EKG (In office) [facility] Work Phone: Start: 03-01-2013 End: 10-04-2013 INR Coag RelTime (PPP) *PT/INR [facility] Work Phone: Start: 03-01-2013 End: 03-03-2013 *BMP *BMP [facility] Work Phone: Start: 03-01-2013 End: 03-01-2013 Cardioversion Cardioversion [facility] Work Phone: Start: 03-01-2013 End: 10-04-2013 Coagulation factor induced.INR assay in platelet poor plasma *PT/INR [facility] Work Phone: Start: 03-01-2013 End: 10-04-2013 Electrocardiogram, complete EKG (In office) [facility] Work Phone: Start: 01-20-2013 End: 01-20-2013 TREADLE CUT OFF SAW OPERATOR TREADLE CUT OFF SAW OPERATOR [facility] Work Phone: Start: 01-20-2013 End: 01-20-2013 Ecg routine ecg w/least 12 lds w/i&r EKG (In office) [facility] Work Phone: Start: 01-20-2013 End: 01-20-2013 Echocardiography Echocardiogram (complete) [facility] Work Phone: Start: 01-20-2013 End: 01-20-2013 Follow Up Appt 6 weeks Follow Up Appt 6 weeks [facility] Work Phone: Start: 01-20-2013 End: 01-20-2013 Nuclear stress test -exercise Nuclear stress test -exercise [facility] Work Phone: Start: 01-20-2013 End: 01-20-2013 TREADLE CUT OFF SAW OPERATOR TREADLE CUT OFF SAW OPERATOR [facility] Work Phone: Start: 01-20-2013 End: 01-20-2013 Echocardiography Echocardiogram (complete) [facility] Work Phone: Start: 01-20-2013 End: 01-20-2013 Electrocardiogram, complete EKG (In office) [facility] Work Phone: Start: 01-20-2013 End: 01-20-2013 Follow Up Appt 6 weeks Follow Up Appt 6 weeks [facility] Work Phone: Start: 01-20-2013 End: 01-20-2013 Nuclear stress test -exercise Nuclear stress test -exercise [facility] Work Phone: Start: 12-02-2012 End: 10-04-2013 INR Coag RelTime (PPP) *PT/INR - Standing Order [facility] Work Phone: Start: 12-02-2012 End: 10-04-2013 Coagulation factor induced.INR assay in platelet poor plasma *PT/INR - Standing Order [facility] Work Phone: Start: 09-25-2012 End: 12-02-2012 INR Coag RelTime (PPP) *PT/INR [facility] Work Phone: Start: 09-25-2012 End: 12-02-2012 Coagulation factor induced.INR assay in platelet poor plasma *PT/INR [facility] Work Phone: Start: 07-01-2012 End: 10-04-2013 *Hepatic Function Panel *Hepatic Function Panel [facility] Work Phone: Start: 07-01-2012 End: 07-01-2012 Ecg routine ecg w/least 12 lds w/i&r EKG (In office) [facility] Work Phone: Start: 07-01-2012 End: 07-01-2012 Follow Up Appt 6 months Follow Up Appt 6 months [facility] Work Phone: Start: 07-01-2012 End: 10-04-2013 Lipid panel [AGGREGATE] *Lipid Profile [facility] Work Phone: Start: 07-01-2012 End: 07-01-2012 Electrocardiogram, complete EKG (In office) [facility] Work Phone: Start: 07-01-2012 End: 07-01-2012 Follow Up Appt 6 months Follow Up Appt 6 months [facility] Work Phone: Start: 06-30-2012 End: 10-04-2013 *Hepatic Function Panel *Hepatic Function Panel [facility] Work Phone: Start: 06-30-2012 End: 10-04-2013 Lipid panel [AGGREGATE] *Lipid Profile [facility] Work Phone: Start: 06-30-2012 End: 07-01-2012 *Hepatic Function Panel *Hepatic Function Panel [facility] Work Phone: Start: 06-30-2012 End: 07-01-2012 Lipid panel [AGGREGATE] *Lipid Profile [facility] Work Phone: Start: 12-25-2011 End: 12-25-2011 Echocardiography Echocardiogram (complete) [facility] Work Phone: Start: 12-25-2011 End: 12-25-2011 Follow Up Appt 6 months Follow Up Appt 6 months [facility] Work Phone: Start: 12-25-2011 End: 12-25-2011 Echocardiography Echocardiogram (complete) [facility] Work Phone: Start: 12-25-2011 End: 12-25-2011 Follow Up Appt 6 months Follow Up Appt 6 months [facility] Work Phone: Start: 10-20-2011 End: 12-25-2011 INR Coag RelTime (PPP) *PT/INR - Standing Order [facility] Work Phone: Start: 10-20-2011 End: 12-25-2011 Coagulation factor induced.INR assay in platelet poor plasma *PT/INR - Standing Order [facility] Work Phone: Start: 2002 PNEUMOCOCCAL: 65+ (1 - PCV) PNEUMOCOCCAL: 65+ (1 - PCV) [facility] Start: 11-26-1987 SHINGRIX VACCINE (1 of 2) MAKI GRIX VACCINE (1 of 2) [facility] Start: 1956 Urine microalbumin profile [facility] Albumin [Moles/volum e] in Serum or Plasma [facility] Albumin/Glob[facility] ratio [facility] End: 09-03-2022 [facility] Work Phone: Comment on above: 1 Occurrences starti ng 09/03/2022 until 09/03/2022 Electrophoresis: [id number] [facility] Electrophoresis: juan ma globulin [facility] Globulin measurement [facility] HEARING TEST/AUDIOGRAM HEARING T EST/AUDIOGRAM Audiology Routine 07/09/2023 3:43 PM EST [facility] IgA [Mass/volume] in Serum or Plasma [facility] IgG [Mass/volume] in Serum or Plasma [facility] IgM [Mass/volume] in Serum or Plasma [facility] [place]/lambda light c bebe ratio [facility] Laboratory data interpretation [facility] Lambda light chains. free [Mass/volume] in Serum or Plasma [facility] Patient referral [facility] Work Phone: Protein electrophore sis panel - Serum or Plasma [facility] Radionuclide imaging of perfusion of myocardium under exercise stress [facility] Smooth muscle Ab [Presence] in Serum [facility] Urine immunofixation [facility] Urine kappa light ch ain measurement [facility] US Heart [facility] VESTIBULAR TEST BATTERY VESTIBUL AR TEST BATTERY Audiology Routine Sensorineural hearing loss (SNHL) of both ears Imbalance Ordered: 06/23/2023 [facility] Work Phone: Comment on above: Ordered: 06/23/2023 [facility] Immunizations Immunization Date Immunization Notes Care Provider Caleb cardoso 05-20-2022 influenza, seasonal, injectable Sweta Fegatelli TOP CUTTER.CARE MANAGEMENT COORDINATOR Work Phone: [facility] 10-22-2021 COVID-19 original vaccine, full dose, monovalent (MODERNA) Sweta Fegatelli TOP CUTTER.CARE MANAGEMENT COORDINATOR Work Phone: [facility] 05-25-2021 influenza, seasonal, injectable Sweta Fegatelli TOP CUTTER.CARE MANAGEMENT COORDINATOR Work Phone: [facility] 05-24-2021 COVID-19 original vaccine, full dose, monovalent (MODERNA) Sweta Fegatelli TOP CUTTER.CARE MANAGEMENT COORDINATOR Work Phone: [facility] 10-12-2020 Covid (Moderna) Dr. Trista Cortez Work Phone: [facility] 09-14-2020 Covid (Moderna) Dr. Trista Cortez Work Phone: [facility] 05-25-2020 influenza, injectabl e, quadrivalent, contains preservative Sweta Fegatelli TOP CUTTER.CARE MANAGEMENT COORDINATOR Work Phone: [facility] 04-21-2020 zoster vaccine recombinant Sweta Fegatelli TOP CUTTER.CARE MANAGEMENT COORDINATOR Work Phone: [facility] 01-27-2020 zoster vaccine recombinant Sweta Fegatelli TOP CUTTER.CARE MANAGEMENT COORDINATOR Work Phone: [facility] 07-05-2019 influenza, injectabl e, quadrivalent, contains preservative Sweta Fegatelli TOP CUTTER.CARE MANAGEMENT COORDINATOR Work Phone: [facility] 06-14-2018 influenza, seasonal, injectable Sweta Fegatelli TOP CUTTER.CARE MANAGEMENT COORDINATOR Work Phone: [facility] 06-11-2017 influenza, seasonal, injectable Sweta Fegatelli TOP CUTTER.CARE MANAGEMENT COORDINATOR Work Phone: [facility] 06-16-2016 influenza, seasonal, injectable Sweta Fegatelli TOP CUTTER.CARE MANAGEMENT COORDINATOR Work Phone: [facility] 06-04-2015 influenza, seasonal, injectable Sweta Fegatelli TOP CUTTER.CARE MANAGEMENT COORDINATOR Work Phone: [facility] 04-12-2015 pneumococcal conjuga te vaccine, 13 valent Sweta Fegatelli TOP CUTTER.CARE MANAGEMENT COORDINATOR Work Phone: [facility] 05-16-2014 influenza, seasonal, injectable Sweta Fegatelli TOP CUTTER.CARE MANAGEMENT COORDINATOR Work Phone: [facility] 09-26-2003 pneumococcal polysaccharide vaccine, 23 valent Sweta Fegatelli TOP CUTTER.CARE MANAGEMENT COORDINATOR Work Phone: [facility] 09-26-[address] Stefania Cortez Work Phone: [facility] Work Phone: 09-26-2003 pneumococcal vaccine , unspecified formulation [facility] Payers Date Payer Category Payer Medicare [id number] 2024 Self-pay [id number] 2021 Medicare [id number] 2021 Unknown [id number] 1935 Unknown [id number] 2.16. [id number] Medicare [id number] Unknown [id number] 2.16.8 40.1.605830.3.579.2.462 Unknown [id number] 2.16.8 40.1.961223.3.579.2.462 Unknown [id number] 2.16.8 40.1.654427.3.579.2.462 Unknown [id number] 2.16.8 40.1.003805.3.579.2.462 Unknown [id number] 2.16.8 40.1.554666.3.579.2.462 Unknown [id number] 2.16.8 40.1.431011.3.579.2.462 Unknown [id number] 2.16.8 40.1.992625.3.579.2.462 Unknown [id number] 2.16.8 40.1.818120.3.579.2.462 Unknown [id number] 2.16.8 40.1.756093.3.579.2.462 Unknown [id number] 2.16.8 40.1.207451.3.579.2.462 Unknown [id number] 2.16.8 40.1.002380.3.579.2.462 Unknown [id number] 2.16.8 40.1.491697.3.579.2.462 Unknown [id number] 2.16.8 40.1.533007.3.579.2.462 Unknown [id number] 2.16.8 40.1.222701.3.579.2.462 Unknown [id number] 2.16.8 40.1.115355.3.579.2.462 Unknown [id number] 2.16.8 40.1.109416.3.579.2.462 Unknown [id number] 2.16.8 40.1.058357.3.579.2.462 Unknown [id number] 2.16.8 40.1.636569.3.579.2.462 Unknown [id number] 2.16.8 40.1.547179.3.579.2.462 Unknown [id number] 2.16.8 40.1.750843.3.579.2.462 Unknown [id number] 2.16.8 40.1.716241.3.579.2.462 Unknown [id number] 2.16.8 40.1.088999.3.579.2.462 Unknown [id number] 2.16.8 40.1.559447.3.579.2.462 Unknown [id number] 2.16.8 40.1.489393.3.579.2.462 Unknown [id number] 2.16.8 40.1.702478.3.579.2.462 Unknown [id number] 2.16.8 40.1.280368.3.579.2.462 Unknown [id number] 2.16.8 40.1.769677.3.579.2.462 Unknown [id number] 2.16.8 40.1.453248.3.579.2.462 Unknown [id number] 2.16.8 40.1.072835.3.579.2.462 Unknown [id number] 2.16.8 40.1.635940.3.579.2.462 Unknown [id number] 2.16.8 40.1.460596.3.579.2.462 Unknown [id number] 2.16.8 40.1.180766.3.579.2.462 Unknown [id number] 2.16.8 40.1.533169.3.579.2.462 Unknown [id number] 2.16.8 40.1.637439.3.579.2.462 Social History Date Type Detail Facility Start: 09-26-2021 End: 06-16-2023 Tobacco smoking status NEIS Unknown if ever smoked [facility] Start: 02-08-2019 Occasional [facility] Start: 02-08-2019 None [facility] Start: 02-08-2019 Spouse/ Signif icant Other [facility] Start: 10-03-2019 Non-smoker [facility] Work Phone: Start: 1935 Sex Assigned At Male [facility] Start: 07-21-2022 Cigarettes [facility] Start: 02-17-2019 End: 06-16-2023 Tobacco smoking status NHIS Ex-smoker [facility] History of tobacco use Current smoker [facility] Start: 02-17-2019 End: 08-06-2022 Tobacco use and exposure Smokeless tobacco non-user [facility] Start: 02-17-2019 End: 06-23-2023 Alcohol intake Current drinker of alcohol (finding) [facility] Start: 02-17-2019 End: 06-23-2023 Alcohol intake [facility] Work Phone: Start: 07-22-2022 History SDOH Financial [address] [facility] Start: 07-22-2022 History SDOH Food Worry [address] [facility] Start: 07-22-2022 History SDOH Transpo rt Med [address] [facility] Start: 1935 Sex Assigned At Not on file [facility] Start: 07-12-2022 End: 07-22-2022 Exposure to SARS-CoV-2 (event) Not sure [facility] Start: 07-22-2022 End: 06-23-2023 Tobacco use panel [facility] Work Phone: How hard is it for y ou to pay for the very basics like food, housing, medical care, and heating Not hard at all [facility] Work Phone: (I/We) worried wheth er (my/our) food would run out before (I/we) got money to buy more. Never true [facility] Work Phone: In the past 12 month s, was there a time when you were not able to pay the mortgage or rent on time? No [facility] Work Phone: Start: 10-05-2022 Gender identity Identifies as male gender (finding) 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 December 22, 2024 1:49pm Essential (primary) hypertension chronic December 22, 2024 1:49pm H/O aortic valve replacement April 30, 2001December 22, 2024 1:49pm Hyperlipidemia chronic December 22 025 1:49pm Longstanding persistent atrial fibrillation December 22, 2024 1:49pm [facility] Work Phone: 1(945) 999-572005-01-2025 Evaluation note* Diagnosis Onset Date Resolution Status Admit Date Pulmonary fibrosis acute December 1:49pm Shortness of breath acute December 222024 1:49pm 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 December 22, 2024 1:49pm Essential (primary) hypertension chronic December 22, 2024 1:49pm H/O aortic valve replacement April 30, 2001December 22, 2024 1:49pm Hyperlipidemia chronic December 22 025 1:49pm Longstanding persistent atrial fibrillation chronic December 22 1:49pm Dementia acute January 09, 2025 12:57pm Polyneuropathy acute January 09, 2025 12:57pm [facility] Work Phone: 1(344) 694-345005-01-2025 Evaluation note* Diagnosis Onset Date Resolution Status Admit Date Pulmonary fibrosis acute December 1:49pm Shortness of breath acute December 222024 1:49pm 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 December 22, 2024 1:49pm Essential (primary) hypertension chronic December 22, 2024 1:49pm H/O aortic valve replacement April 30, 2001December 22, 2024 1:49pm Hyperlipidemia chronic December 22 025 1:49pm Longstanding persistent atrial fibrillation chronic December 22 1:49pm Dementia acute January 09, 2025 12:57pm Polyneuropathy acute January 09, 2025 12:57pm Shortness of breath acute February 07, 2025 11:09am 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 February 07, 2025 11:09am Essential (primary) hypertension chronic February 07, 2025 11:09am H/O aortic valve replacement April 30, 2001February 07, 2025 11:09am Hyperlipidemia chronic February 07, 2025 11:09am Longstanding persistent atrial fibrillation chronic February 07 11:09am [facility] Work Phone: 1(839) 997-716405-01-2025 Evaluation note* Diagnosis Onset Date Resolution Status Admit Date Pulmonary fibrosis acute December 1:49pm Shortness of breath acute December 222024 1:49pm 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 December 22, 2024 1:49pm Essential (primary) hypertension chronic December 22, 2024 1:49pm H/O aortic valve replacement April 30, 2001December 22, 2024 1:49pm Hyperlipidemia chronic December 22 1:49pm Longstanding persistent atrial fibrillation chronic December 22 1:49pm Dementia acute January 09, 2025 12:57pm Polyneuropathy acute January 09, 2025 12:57pm Shortness of breath acute February 07, 2025 11:09am 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 February 07, 2025 11:09am Essential (primary) hypertension chronic February 07, 2025 11:09am H/O aortic valve replacement April 30, 2001February 07, 2025 11:09am Hyperlipidemia chronic February 07, 2025 11:09am Longstanding persistent atrial fibrillation February 07 11:09am Shortness of breath acute March 17, 2025 8:50am 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 [facility] [address] [place] [address] Chest without Contrast MR#: [id number] Acct: [id number] Name: GEORGE MCCLAIN Rep #: [id number] : 1935 M 89 From: Jen Ochoa MD PCP: Dr. Bahsir Cortez MD Status: REG CLI Study:Chest without Contrast Date of Exam: 11/29/24 Exam# [id number] Ordering Dr: George Hood MD PROCEDURE: CHEST WITHOUT CONTRAST 11/29/2024 REASON FOR EXAM: PULMONARY HYPERTENSION, UNSPECIFIED TECHNIQUE: Chest CT without contrast. Coronal and Sagittal reconstruction series were provided. One or more dose reduction techniques were used (e.g., Automated exposure control, adjustment of the mA and/or kV according to patient size, use of iterative reconstruction technique RADIATION DOSE SUMMARY: CTDlvol: 369.96 mGy DLP: 369.96 mGycm COMPARISON: None available FINDINGS: Hardware: None Lymph nodes: Several minimally prominent mediastinal lymph nodes Heart and Vasculature: The heart is moderately enlarged. The great vessels are normal in size and caliber. Calcified atherosclerotic plaque within the thoracic aorta. Coronary Artery Calcifications: Coronary artery calcification. Lungs and Airways: Central airways are patent. Minimal upper lobe predominant centrilobular emphysematous changes within bilateral lungs. There are subpleural reticular opacities within the bilateral lungs, likely early fibrosis. Mild lower lobe predominant bronchiectasis. Pleura: No pleural effusion or pneumothorax. Upper Abdomen: Unremarkable Bones: No aggressive osseous lesions. No acute fractures. Multilevel degenerative proliferative changes throughout the thoracic spine. Qsds-ns-[id number] kyphosis. CT/Chest without Contrast IMPRESSION: 1. Coronary artery calcification (CAC) is present 2. There are subpleural reticular opacities within bilateral lungs, likely earlyfibrosis. 3. Mild lower lobe predominant bronchiectasis. 4. Minimal upper lobe predominant centrilobular emphysematous changes within bilateral lungs. Reading Location: [facility] CC: Dr. Bashir Cortez MD; Dr. George Hood MD ~ Stenographic [address] Reporter: Signed [facility]11-16-2023 Miscellaneous Notes* Telephone Encounter - VivasFe - 07/09/2023 9:50 AM EST Called to pass on that Dr. Akanksha Hernandez does not feel it is necessary to proceed with vestibular testing if Saleem is not a candidate for a cochlear implant at this time. Fe Vivas Hearing Implant Boot Turner [facility] History of Present illness Narrative* Sherlyn Ridley AUD - 07/07/2023 1:00 PM EST Images from the original note were not included. Head [facility] Ne[facility] [place] Section of Allied Hearing, Speech and Balance Services ADULT COCHLEAR IMPLANT CANDIDACY EVALUATION Audiometric Testing Name: George Mcclain [facility]#: [id number] Date of Service: July 07, 2023 Date of : 1935 Age: [age] year old Referred by: Mihaela Hernandez MD This patient was referred for an evaluation to determine cochlear implant candidacy. Relevant case history includes the following: HISTORY: Audiologic Audiometric [facility]23 with the following results: RIGHT: Moderate at 125 gradually sloping to severe SNHL. *WRS: 56% LEFT: Mild at 125 Hz gradually sloping to moderately-severe SNHL. *WRS: 52% Hearing loss: Reported having progressive hearing loss for 10 years, and doesn't notice if one ear is better then the other. Tinnitus: Denied Dizziness: Is currently going to PT. Reported that his left leg is weaker following a fall which resulted in a brain bleed. Noted that he'll sometimes experience a lightheadedness when he's watching TV in bed. Otalgia: Denied Otorrhea: Denied Aural Fullness: Denied Family History of Hearing loss: Father, grandfather, and brother all wore hearing aids, hearing loss was reportedly due to aging. History of noise exposure: Worked at a [employer] for 1 year near loud equipment and deniedwearing HPD. Otologic/medical Previous Ear Surgeries: Denied Headaches: Denied Medical Conditions: Reported having macular degeneration, which limits his vision, especially at night History of chemotherapy/radiation: Denied Head trauma: Fell and hit his head a year ago in June 2022 resulting in a subdural hematoma, stroke-like symptoms and persistent left sided leg weakness Seizures: Denied Amplification Current Make/Model: Pete Nieto with power domes. Fitting date: 1 year ago Last programmed: 1 year ago Managed by: [employer] in [place]. Goes once a month to get his hearing aids cleaned and checked. History of amplification; Has worn hearing aids consistently since first diagnosed with hearing loss. Has had 4 different sets of hearing aids. Communication limitations/participation restrictions Social: Reported that recently he's been taking himself out of social situations due to struggling with hearing. He noted that he does well with one on one conversations and struggles with multiple people. Reported having a hard time at voodoo aswell. He reported that he struggles communicating with his especially when she's turned away from him or if she's in a different room. Occupational: retired. Phone: Reported that he tries not to use the home phone often because he struggles to understand. Has a caption home phone. Does not use a cell phone Television: Noted that him and his don't normally watch TV together. He stated that when he does watch TV it's alone in a different room with the closed captions on. Other Family Support: was at the appointment today and is very supportive of trying to help him hear better. Rest of family lives out of state. AUDIOMETRIC TESTING HEARING AID TEST RESULTS [facility] hearing aids were programmed to the patient s most recent audiogram. Devices were verified utilizing the Audioscan verifit equipment to NAL-NL 1 fitting methods. AIDED SII Meeting Target NAL-NL1 Gain RIGHT Ear CLINIC Device 64 Yes LEFT Ear CLINIC Device 68 Yes A CNC word list was administered in the right aided and left aided condition with the patient's hearing aids and the Clinic's hearing aids. Results indicated the patient performed slightly better with his devices and the patient subjectively reported the devices sounded about the same. Based on CNC word lists results, testing proceeded using the patient's hearing devices. AIDED SPEECH TESTING The contralateral ear was Plugged and Muffed during testing. Speech perception testing was completed using recorded stimuli in quiet in the sound field at conversational level (60 chief science officer); results were: Hcspgfmij-Tkktawg-Zcxkyvkla Words (CNC) Test Condition List # Phonemes Words Right Ear (Patient MOORE) 3 89% 80% Left Ear (Patient MOORE) 9 85% 72% Right Ear (Clinic MOORE) 5 89% 76% Left Ear (Clinic MOORE) 7 67% 32% Bilateral 4 81% 68% AZ BIO (quiet, -10 dB HL) Test Condition List # Score Right Ear 1 42% Left Ear 7 45% Bilateral 4 62% AZ BIO (+5 SNR) Test Condition List # Score Right Ear 2 19% Left Ear 8 18% Bilateral 6 51% INTERPRETATION OF RESULTS Patient perception testing suggests patient performed better with his own hearing aids than with the clinic devices. Speech scores demonstrate appropriate benefit on single words, however, patient has significant difficulty understanding softer speech or in the presence of background noise. SUMMARY AND RECOMMENDATIONS Based on the audiometric testing, Not a Candidate Based on audiometric testing, This patient does not meet FDA criteria for cochlear implantation at this time Recommendations: * Continue use of binaural hearing aids * Return for re-evaluation in 1 year, or sooner if concerns for a change in hearing arise * Counseled patient and his on effective communication strategies. * Discussed potential assistive devices that could help with hearing at a distance or in backgroundnoise. Recommend returning to fitting clinic for review of potential options available. The patient appears cognitively able to use auditory cues and is able to undergo an extensive rehabilitation process. S/he is able to participate in a post- cochlear implant rehabilitation program in order to achieve benefit from the cochlear implant device. This case will be discussed at the next scheduled Hearing Implant Program (HIP) team meeting. The patient understands that determination of candidacy is an interdisciplinary process and final determination of candidacy will be communicated via certified mail following team review. TOTAL TIME: 75 minutes Evaluation of auditory status: 20 minutes programming/verifying hearing aid(s) + 55 minutes aided testing = 75 minutes TOTAL KELLEE Mistry Audiology Student Marcella Holt, CCC/A I verify that I have reviewed the history, test results, and interpretation for this patient. Marcella Holt, OUSMANE-A Clinical and Hearing Implant Mathematical Technician copied to: MD Fe Conley, HIP Coordinator documented in this encounterMer[facility]11-[facility]23 NoteHNO ID: [id number] Author: Sherlyn Ridley AUD Service: ? Author Type: Mathematical Technician Type: Progress Notes Filed: 07/10/2023 1:24 PM Note Text: Head [facility] [place] Section of Allied Hearing, Speech and Balance Services ADULT COCHLEAR IMPLANT CANDIDACY EVALUATION Audiometric Testing Name: George Mcclain [facility]#: [id number] Date of Service: July 07, 2023 Date of : 1935 Age: [age] year old Referred by: Mihaela Hernandez MD This patient was referred for an evaluation to determine cochlear implant candidacy. Relevant case history includes the following: HISTORY: Audiologic Audiometric testing [facility] on [facility]/2023 with the following results: RIGHT: Moderate at 125 gradually sloping to severe SNHL. *WRS: 56% LEFT: Mild at 125 Hz gradually sloping to moderately-severe SNHL. *WRS: 52% Hearing loss: Reported having progressive hearing loss for 10 years, and doesn't notice if one ear is better then the other. Tinnitus: Denied Dizziness: Is currently going to PT. Reported that his left leg is weaker following a fall which resulted in a brain bleed. Noted that he'll sometimes experience a lightheadedness when he's watching TV in bed. Otalgia: Denied Otorrhea: Denied Aural Fullness: Denied Family History of Hearing loss: Father, grandfather, and brother all wore hearing aids, hearing loss was reportedly due to aging. History of noise exposure: Worked at a [employer] for 1 year near loud equipment and denied wearing HPD. Otologic/medical Previous Ear Surgeries: Denied Headaches: Denied Medical Conditions: Reported having macular degeneration, which limits his vision, especially at night History of chemotherapy/radiation: Denied Head trauma: Fell and hit his head a year ago in June 2022 resulting in a subdural hematoma, stroke-like symptoms and persistent left sided leg weakness Seizures: Denied Amplification Current Make/Model: [employer] RICs with power domes. Fitting date: 1 year ago Last programmed: 1 year ago Managed by: [employer] in [place]. Goes once a month to get his hearing aids cleaned and checked. History of amplification; Has worn hearing aids consistently since first diagnosed with hearing loss. Has had 4 different sets of hearing aids. Communication limitations/participation restrictions Social: Reported that recently he's been taking himself out of social situations due to struggling with hearing. He noted that he does well with one on one conversations and struggles with multiple people. Reported having a hard time at voodoo as well. He reported that he struggles communicating with his especially when she's turned away from him or if she's in a different room. Occupational: retired. Phone: Reported that he tries not to use the home phone often because he struggles to understand. Has a caption home phone. Does not use a cell phone Television: Noted that him and his don't normally watch TV together. He stated that when he does watch TV it's alone in a different room with the closed captions on. Other Family Support: was at the appointment today and is very supportive of trying to help him hear better. Rest of family lives out of state. AUDIOMETRIC TESTING HEARING AID TEST RESULTS [facility] clinic hearing aids were programmed to the patient?s most recent audiogram. Devices were verified utilizing the Audio[employer] equipment to NAL-NL 1 fitting methods. AIDED SII Meeting Target NAL-NL1 Gain RIGHT Ear CLINIC Device 64 Yes LEFT Ear CLINIC Device 68 Yes A CNC word list was administered in the right aided and left aided condition with the patient's hearing aids and the Clinic's hearing aids. Results indicated the patient performed slightly better with his devices and the patient subjectively reported the devices sounded about the same. Based on CNC word lists results, testing proceeded using the patient's hearing devices. AIDED SPEECH TESTING The contralateral ear was Plugged and Muffed during testing. Speech perception testing was completed using recorded stimuli in quiet in the sound field at conversational level (60 chief science officer); results were: Cltusslrk-Zucfbzj-Bkcgiiglh Words (CNC) Test Condition List # Phonemes Words Right Ear (Patient MOORE) 3 89% 80% Left Ear (Patient MOORE) 9 85% 72% Right Ear (Clinic MOORE) 5 89% 76% Left Ear (Clinic MOORE) 7 67% 32% Bilateral 4 81% 68% AZ BIO (quiet, -10 dB HL) Test Condition List # Score Right Ear 1 42% Left Ear 7 45% Bilateral 4 62% AZ BIO (+5 SNR) Test Condition List # Score Right Ear 2 19% Left Ear 8 18% Bilateral 6 51% INTERPRETATION OF RESULTS Patient perception testing suggests patient performed better with his own hearing aids than with the clinic devices. Speech scores demonstrate appropriate benefit on single words, however, patient has significant difficulty understanding (more content not included)...[facility]11-10-2023 Miscellaneous Notes* Telephone Encounter - Fe Vivas - 07/03/2023 10:14 AM EST Will have to cancel this afternoon's appointment due to urgent provider need to be out. Rescheduledfor Anderson at 1:00 on Jul 07. Fe Vivas Hearing Implant Boot Turner documented in this encounterMer[facility]10-31-[facility]23 Instructions* Patient Instructions* Mihaela Woods MD - 06/23/2023 1:51 PM EDT Schedule vestibular test battery next available documented in this encounterMer[facility]10-31-2023 NoteHNO ID: [id number] Author: Mihaela Woods MD Service: ? Author Type: Physician Type: Progress Notes Filed: 06/23/2023 1:55 PM Note Text: OTOLOGY AND NEUROTOLOGY NEW PATIENT VISIT Date: 06/23/2023 Requested by: Self PCP: Bashir Cortez MD Chief complaint: Hearing Loss (Discuss CI) History of present illness: George Mcclain is a 87 year old male who was seen for cochlear implant. He also has bilateral macular degeneration Hearing loss: Gradual in both ears for about 10 years. Has difficulty hearing in noise. Better ear is neither one Use phone? No Aided: both, for about 9 years, current set 1-2 years old Tinnitus: No Vertigo: No Imbalance: Yes, especially after a fall last year Ear pain: No Ear drainage: No Prior ear surgery/trauma: No Prevnar-13: 04/12/2015 Pneumovax: 09/26/2003 ACTIVE PROBLEM LIST Nonallopathic Lesion of Cervical Region, Not Elsewhere Classified Osteoarthrosis, Unspecified Whether Generalized Or Localized, Other Specified Sites Lumbago Diverticulosis of Colon (Without Mention of Hemorrhage) Cervicalgia Nonspecific Elevation of Levels of Transaminase Or Lactic Acid Dehydrogenase (Ldh) Aortic Valve Disorders Dermatophytosis of Nail Pure Hyperglyceridemia Htn (Hypertension) Obesity, Unspecified Hemorrhage of Rectum and Anus Sdh (Subdural Hematoma) (Hcc) Subarachnoid Hemorrhage Following Injury, No Loss of Consciousness (Hcc) Facial Droop Dysarthria Fall Current Use of Enamel Buffer Anticoagulation Persistent Atrial Fibrillation (Hcc) Qt Prolongation Bradycardia Urinary Retention Gout Chronic Diastolic Heart Failure (Hcc) Arteriosclerosis of Coronary Artery Coronary Arteriosclerosis in [place] Artery Daytime Somnolence Dyspnea History of Radiofrequency Ablation (Rfa) Procedure for Cardiac Arrhythmia Hyperlipidemia Left Ventricular Diastolic Dysfunction Obstructive Sleep Apnea Syndrome Pulmonary Arterial Hypertension (Hcc) Snoring At Risk for Stroke PAST MEDICAL HISTORY Diagnosis Date Aortic valve disorders At risk for stroke Cervicalgia Coronary atherosclerosis Dermatophytosis of nail Diverticulosis of colon (without mention of hemorrhage) Essential hypertension, benign Hemorrhage of rectum and anus Lesion of plantar nerve Lumbago Nonallopathic lesion of cervical region, not elsewhere classified Nonspecific elevation of levels of transaminase or lactic acid dehydrogenase (LDH) Obesity, unspecified Osteoarthrosis, unspecified whether generalized or localized, other specified sites Pure hyperglyceridemia Unspecified hyperplasia of prostate PAST SURGICAL HISTORY Procedure Laterality Date CHOLECYSTECTOMY COLONOSCOPY FLX DX W/COLLJ SPEC WHEN PFRMD 05/2009 Colonoscopy COLONOSCOPY FLX DX W/COLLJ SPEC WHEN PFRMD 05/01/2011 Colonoscopy PAST SURGICAL HISTORY OF 04/2001 aortic valve replacement surgery- mechanical - [facility] - Dr. Esteban TONSILLECTOMY PRIMARY/SECONDARY Tonsillectomy and adeniodectomy Social History Tobacco Use Smoking status: Former Smokeless tobacco: Never Substance Use Topics Alcohol use: Yes Alcohol/week: 5.0 standard drinks of alcohol Types: 1 Glasses of Wine (5oz), 1 Cans of Beer (12oz) per week Drug use: Never ALLERGIES No Known Allergies Current Outpatient Medications on File Prior to Visit Medication Sig Zinc Gluconate 50 mg tablet Take 50 mg by mouth once daily. tamsulosin (FLOMAX) 0.4 mg Take 0.4 mg by mouth once daily. triamcinolone acetonide (KENALOG) 0.1 % cream APPLY TO ITCHY AREAS ON BODY ONCE DAILY NEEDED vit C/E/Zn/coppr/lutein/zeaxan (PRESERVISION AREDS-2 ORAL) Take 1 capsule by mouth once daily. atorvastatin (LIPITOR) 40 mg tablet 1 tablet by ORAL/FEEDING TUBE route daily at bedtime. allopurinol (ZYLOPRIM) 100 mg tablet Take 100 mg by mouth once daily. furosemide (LASIX) 40 mg tablet Take 80 mg by mouth twice daily. cholecalciferol, vitamin D3, 250 mcg (10,000 unit) tab Take 1 tablet by mouth once daily. escitalopram oxalate (LEXAPRO) 20 mg tablet Take 20 mg by mouth once daily. potassium chloride (KCL-20 ORAL) Take 1 tablet by mouth once daily. magnesium oxide,aspartate,citr 400 mg magnesium cap Take 1 capsule by mouth once daily. losartan (COZAAR) 50 mg tablet Take 50 mg by mouth once daily. warfarin (COUMADIN) 4 mg tablet Take 4-6 mg by mouth daily as directed. 4mg every day except for 6mg on the 7th day as of 09.03.2022 Ciclopirox (LOPROX) 8 % solution APPLY TOPICALLY TO AFFECTED TOENAIL(S) ONCE DAILY. CLEANSE TOENAILS ONCE WEEKLY WITH RUBBING ALCOHOL. fluticasone (FLONASE) 50 mcg/actuation nasal spray 2 sprays in each nostril daily x1 week then 1-2 sprays in each nostril daily. (use smallest dose possible for symptom control after week 1). levETIRAcetam (KEPPRA) 750 mg tablet 1 tablet by ORAL/FEEDING TUBE route twice daily. No current facility-administered medications on file prior to visit. R (more content not included)...[facility]10-31-20[facility] History of Present illness Narrative* Mihaela Woods MD - 06/23/2023 1:25 PM EDT Images from the original note were not included. OTOLOGY & NEUROTOLOGY NEW PATIENT VISIT Date: 06/23/2023 Requested by: Self PCP: Bashir Cortez MD Chief complaint: Hearing Loss (Discuss CI) History of present illness: George Mccalin is a 87 year old male who was seen for cochlear implant. He also has bilateral macular degeneration Hearing loss: Gradual in both ears for about 10 years. Has difficulty hearing in noise. Better ear is neither one Use phone? No Aided: both, for about 9 years, current set 1-2 years old Tinnitus: No Vertigo: No Imbalance: Yes, especially after a fall last year Ear pain: No Ear drainage: No Prior ear surgery/trauma: No Prevnar-13: 04/12/2015 Pneumovax: 09/26/2003 ACTIVE PROBLEM LIST Nonallopathic Lesion of Cervical Region, Not Elsewhere Classified Osteoarthrosis, Unspecified Whether Generalized Or Localized, Other Specified Sites Lumbago Diverticulosis of Colon (Without Mention of Hemorrhage) Cervicalgia Nonspecific Elevation of Levels of Transaminase Or Lactic Acid Dehydrogenase (Ldh) Aortic Valve Disorders Dermatophytosis of Nail Pure Hyperglyceridemia Htn (Hypertension) Obesity, Unspecified Hemorrhage of Rectum and Anus Sdh (Subdural Hematoma) (Hcc) Subarachnoid Hemorrhage Following Injury, No Loss of Consciousness (Hcc) Facial Droop Dysarthria Fall Current Use of Correction Anticoagulation Persistent Atrial Fibrillation (Hcc) Qt Prolongation Bradycardia Urinary Retention Gout Chronic Diastolic Heart Failure (Hcc) Arteriosclerosis of Coronary Artery Coronary Arteriosclerosis in [place] Artery Daytime Somnolence Dyspnea History of Radiofrequency Ablation (Rfa) Procedure for Cardiac Arrhythmia Hyperlipidemia Left Ventricular Diastolic Dysfunction Obstructive Sleep Apnea Syndrome Pulmonary Arterial Hypertension (Hcc) Snoring At Risk for Stroke PAST MEDICAL HISTORY Diagnosis Date Aortic valve disorders At risk for stroke Cervicalgia Coronary atherosclerosis Dermatophytosis of nail Diverticulosis of colon (without mention of hemorrhage) Essential hypertension, benign Hemorrhage of rectum and anus Lesion of plantar nerve Lumbago Nonallopathic lesion of cervical region, not elsewhere classified Nonspecific elevation of levels of transaminase or lactic acid dehydrogenase (LDH) Obesity, unspecified Osteoarthrosis, unspecified whether generalized or localized, other specified sites Pure hyperglyceridemia Unspecified hyperplasia of prostate PAST SURGICAL HISTORY Procedure Laterality Date CHOLECYSTECTOMY COLONOSCOPY FLX DX W/COLLJ SPEC WHEN PFRMD 05/2009 Colonoscopy COLONOSCOPY FLX DX W/COLLJ SPEC WHEN PFRMD 05/01/2011 Colonoscopy PAST SURGICAL HISTORY OF 04/2001 aortic valve replacement surgery- mechanical - [facility] - Dr. Esteban TONSILLECTOMY PRIMARY/SECONDARY <AGE 14 Tonsillectomy and adeniodectomy Social History Tobacco Use Smoking status: Former Smokeless tobacco: Never Substance Use Topics Alcohol use: Yes Alcohol/week: 5.0 standard drinks of alcohol Types: 1 Glasses of Wine (5oz), 1 Cans of Beer (12oz) per week Drug use: Never ALLERGIES No Known Allergies Current Outpatient Medications on File Prior to Visit Medication Sig Zinc Gluconate 50 mg tablet Take 50 mg by mouth once daily. tamsulosin (FLOMAX) 0.4 mg Take 0.4 mg by mouth once daily. triamcinolone acetonide (KENALOG) 0.1 % cream APPLY TO ITCHY AREAS ON BODY ONCE DAILY NEEDED vit C/E/Zn/coppr/lutein/zeaxan (PRESERVISION AREDS-2 ORAL) Take 1 capsule by mouth once daily. atorvastatin (LIPITOR) 40 mg tablet 1 tablet by ORAL/FEEDING TUBE route daily at bedtime. allopurinol (ZYLOPRIM) 100 mg tablet Take 100 mg by mouth once daily. furosemide (LASIX) 40 mg tablet Take 80 mg by mouth twice daily. cholecalciferol, vitamin D3, 250 mcg (10,000 unit) tab Take 1 tablet by mouth once daily. escitalopram oxalate (LEXAPRO) 20 mg tablet Take 20 mg by mouth once daily. potassium chloride (KCL-20 ORAL) Take 1 tablet by mouth once daily. magnesium oxide,aspartate,citr 400 mg magnesium cap Take 1 capsule by mouth once daily. losartan (COZAAR) 50 mg tablet Take 50 mg by mouth once daily. warfarin (COUMADIN) 4 mg tablet Take 4-6 mg by mouth daily as directed. 4mg every day except for 6mg on the 7th day as of 09.03.2022 Ciclopirox (LOPROX) 8 % solution APPLY TOPICALLY TO AFFECTED TOENAIL(S) ONCE DAILY. CLEANSE TOENAILS ONCE WEEKLY WITH RUBBING ALCOHOL. fluticasone (FLONASE) 50 mcg/actuation nasal spray 2 sprays in each nostril daily x1 week then 1-2 sprays in each nostril daily. (use smallest dose possible for symptom control after week 1). levETIRAcetam (KEPPRA) 750 mg tablet 1 tablet by ORAL/FEEDING TUBE route twice daily. No current facility-administered medications on file prior to visit. Review of system: Positive: As above Negative: Fever, shortness of breath There were no vitals taken for this visit. Appearance: Non-syndromic, cooperative, and calm Communication: Voice has adequate volume; No stridor or aesthenia Head/Face: Head and facial contours are symmetric Facial nerve 1/6 bilateral Skin: no skin lesions or scarring on face Ophthalmic: Full ocular motility intact; pupils symmetric; no nystagmus Ears: AD: Normal : Normal Geovanny Jordan AD [phone] Nose: Dorsum straight; Nostrils clear Oral Cavity: Dentition good Oropharynx: Uvula midline; Mucosa pink and moist Neck: No LAD; thyroid without masses or enlargement Lymphatic: No lymphadenopathy or masses Neuro/Psych.: Alert and oriented x 3 Cranial nerves intact, except for hearing Data Review: Audiogram 06/23/2023: CT head 09/03/22: No acute intracranial process. Well-pneumatized, well-aerated middle ear and mastoid bilaterally. Normal cochlear ducts. MRI brain with and without contrast 07/22/22: Overall stable mild subarachnoid hemorrhage in the left interhemispheric fissure. No other acute intracranial findings. Normal cochlear duct, internal auditory canal, cerebellopontine angle bilaterally. ASSESSMENT: (H90.3) Sensorineural hearing loss (SNHL) of both ears (primary encounter diagnosis) (R26.89) Imbalance I discussed the nature of hearing loss and options for management with the help of diagrams and imaging studies. I discussed cochlear implant surgery, alternatives, risks, and answered all questions. PLAN: - Audiology cochlear implant evaluation scheduled on 06/26/23 - Vestibular test battery to evaluate imbalance - Discuss at the next Hearing Implant Program meeting - Patient would like cochlear implant of right ear if approved - Surgery to be done at [facility] with cardiology clearance - Will need to hold coumadin for 5 days prior to surgery Office Visit on 06/23/23 VESTIBULAR TEST BATTERY Zinc Gluconate 50 mg tablet tamsulosin (FLOMAX) 0.4 mg Electronically signed by: Mihaela Henrandez MD 06/23/2023 1:49 PM documented in this encounter[facility] History of Present illness Narrative* Aspen Chang AuD, CCC-A - 06/23/2023 12:30 PM EDT Head and Neck [place] AUDIOLOGIC EVALUATION REPORT Name: George Mcclain CC#: [id number] Date of Service: 06/23/2023 Date of : 1935 Age: [age] year old Referred by: Mihaela Hays MD Referred for: Evaluation of the cause of disorder of hearing, tinnitus, or balance. Referral documented: In an order in Epic Patient's major complaints: Reduced hearing in both ears Hearing loss: known hearing loss for at least 10 years Tinnitus: denied Ear pain: denied Aural fullness: denied Otorrhea: denied History of ear infections: denied History of otologic surgeries: denied Dizziness: patient had a stroke about 6 months ago and has had balance issues since then. Has received physical therapy. 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 See Audiogram in Procedures Tab for additional reported history and symptoms. Risk of Falls Documentation for over 65 years old: fell 6 months ago and then he suffered a stroke from the bleeding in his brain. (fall details needed) IMPRESSIONS RIGHT EAR: Sensorineural hearing loss LEFT EAR: Sensorineural hearing loss Comparison of today's results with previous test results: No previous results available AUDIOLOGIC EVALUATION Following is a brief interpretation of the obtained findings from the audiologic evaluation. Refer to the Auditory Test Record for complete audiometric results. The patient was counseled about the test findings and appropriate audiologic recommendations were made. SUMMARY: Audiogram can be viewed under Procedures Tab OTOSCOPY RIGHT EAR: Otoscopic inspection revealed ear canal was clear with minimal amount of non-occluding cerumen present and identifiable cone of light suggesting WNL middle ear system. LEFT EAR: Otoscopic inspection revealed ear canal was clear with minimal amount of non-occluding cerumen present and identifiable cone of light suggesting WNL middle ear system. TYMPANOMETRY Description of procedure: This test is an objective evaluation of middle ear function. CPT code: 02890 RIGHT EAR: Normal ME function. LEFT EAR: Normal ME function. ACOUSTIC REFLEXES Description of procedure: This test is an objective measure of auditory and facial nerve pathways. CPT code: 58363, 14775 RIGHT EAR PROBE EAR: (ipsi right stimulus ear; contralateral left stimulus ear): Acoustic Reflex Pattern Did not test Acoustic Reflex Decay (left stimulus ear): Did not test. LEFT EAR PROBE EAR: (ipsi left stimulus ear; contralateral right stimulus ear): Acoustic Reflex Pattern Did not test Acoustic Reflex Decay (right stimulus ear):Did not test. PURE TONE AUDIOMETRY AND SPEECH TESTING Description of procedure: This test is an objective evaluation hearing sensitivity via air and boneconduction and speech recognition testing. CPT code: 23451 RIGHT EAR: Hearing Sensitivity: Moderate to severe SNHL Word Recognition Score: Very Poor (56%). WRS is poorer than expected given hearing sensitivity. Words were presented at 85 dB HL is above (greater than or equal to 60 dB HL) intensity level for average conversational speech. The NU-6 Word List (25 words) was used. LEFT EAR: Hearing Sensitivity: Mild to moderately-severe SNHL Word Recognition Score: Very Poor (52%). WRS is poorer than expected given hearing sensitivity. Words were presented at 80 dB HL which is above (greater than or equal to 60 dB HL) intensity level foraverage conversational speech. The NU-6 Word List (25 words) was used. RECOMMENDATIONS * Continue medical follow-up with Mihaela Hernandez MD. * Re-evaluation as medically indicated. * Return if a change in hearing is noted. * Call [phone] to schedule an appointment for an implantable hearing device evaluation. Marcella Umaña., OUSMANE-A Senior Mathematical Technician copied to: Mihaela Hernandez MD RIVERA Abbrev- iation Definition Degree of hearing sensitivity dB range WNL within normal limits WNL 0 - 20 SNHL sensorineural hearing loss Mild 20-40 CHL conductive hearing loss Moderate 40-55 MHL mixed hearing loss Moderately-Severe 55-70 WRS word recognition score Severe 70-90 ME middle ear Profound 90 + TM tympanic membrane documented in this encounterMer[facility]23 NoteHNO ID: [id number] Author: Aspen Chang AuD, CCC-A Service: ? Author Type: Mathematical Technician Type: Progress Notes Filed: 06/23/2023 4:41 PM Note Text: Head and Neck [place] AUDIOLOGIC EVALUATION REPORT Name: George Mcclain CCF#: [id number] Date of Service: 06/23/2023 Date of : 1935 Age: [age] year old Referred by: Mihaela Hays MD Referred for: Evaluation of the cause of disorder of hearing, tinnitus, or balance. Referral documented: In an order in [facility] Patient's major complaints: Reduced hearing in both ears Hearing loss: known hearing loss for at least 10 years Tinnitus: denied Ear pain: denied Aural fullness: denied Otorrhea: denied History of ear infections: denied History of otologic surgeries: denied Dizziness: patient had a stroke about 6 months ago and has had balance issues since then. Has received physical therapy. 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 See Audiogram in Procedures Tab for additional reported history and symptoms. Risk of Falls Documentation for over 65 years old: fell 6 months ago and then he suffered a stroke from the bleeding in his brain. (fall details needed) IMPRESSIONS RIGHT EAR: Sensorineural hearing loss LEFT EAR: Sensorineural hearing loss Comparison of today's results with previous test results: No previous results available AUDIOLOGIC EVALUATION Following is a brief interpretation of the obtained findings from the audiologic evaluation. Refer to the Auditory Test Record for complete audiometric results. The patient was counseled about the test findings and appropriate audiologic recommendations were made. SUMMARY: Audiogram can be viewed under Procedures Tab OTOSCOPY RIGHT EAR: Otoscopic inspection revealed ear canal was clear with minimal amount of non-occluding cerumen present and identifiable cone of light suggesting WNL middle ear system. LEFT EAR: Otoscopic inspection revealed ear canal was clear with minimal amount of non-occluding cerumen present and identifiable cone of light suggesting WNL middle ear system. TYMPANOMETRY Description of procedure: This test is an objective evaluation of middle ear function. CPT code: 84480 RIGHT EAR: Normal ME function. LEFT EAR: Normal ME function. ACOUSTIC REFLEXES Description of procedure: This test is an objective measure of auditory and facial nerve pathways. CPT code: 77874, 34553 RIGHT EAR PROBE EAR: (ipsi right stimulus ear; contralateral left stimulus ear): Acoustic Reflex Pattern Did not test Acoustic Reflex Decay (left stimulus ear): Did not test. LEFT EAR PROBE EAR: (ipsi left stimulus ear; contralateral right stimulus ear): Acoustic Reflex Pattern Did not test Acoustic Reflex Decay (right stimulus ear):Did not test. PURE TONE AUDIOMETRY AND SPEECH TESTING Description of procedure: This test is an objective evaluation hearing sensitivity via air and bone conduction and speech recognition testing. CPT code: 03965 RIGHT EAR: Hearing Sensitivity: Moderate to severe SNHL Word Recognition Score: Very Poor (56%). WRS is poorer than expected given hearing sensitivity. Words were presented at 85 dB HL is above (greater than or equal to 60 dB HL) intensity level for average conversational speech. The NU-6 Word List (25 words) was used. LEFT EAR: Hearing Sensitivity: Mild to moderately-severe SNHL Word Recognition Score: Very Poor (52%). WRS is poorer than expected given hearing sensitivity. Words were presented at 80 dB HL which is above (greater than or equal to 60 dB HL) intensity level for average conversational speech. The NU-6 Word List (25 words) was used. RECOMMENDATIONS * Continue medical follow-up with Mihaela Hernandez MD. * Re-evaluation as medically indicated. * Return if a change in hearing is noted. * Call [phone] to schedule an appointment for an implantable hearing device evaluation. Marcella Umaña., [facility]-A Senior Mathematical Technician copied to: Mihaela Hernandez MD RIVERA Abbrev- iation Definition Degree of hearing sensitivity dB range WNL within normal limits WNL 0 - 20 SNHL sensorineural hearing loss Mild 20-40 CHL conductive hearing loss Moderate 40-55 MHL mixed hearing loss Moderately-Severe 55-70 WRS word recognition score Severe 70-90 ME middle ear Profound 90 + TM tympanic membraneMarymount Hospital02-13-2023 NoteHNO ID: [id number] Author: George Galloway MD Service: ? Author Type: Physician Type: Progress Notes Filed: 10/06/2022 8:09 PM Note Text: PRIMARY CARE PHYSICIAN: Bashir Cortez ([facility]) [address] [place] [address] REFERRING PHYSICIAN: Bashir Cortez ([facility]) [address] [place] [address] Patient Care Team: Bashir Cortez MD as PCP - General (Family Medicine) Albert Mojica as Specialty Field Technical Support Consultant (Cardiology) CHIEF COMPLAINT: Evaluation of arrhythmia HISTORY OF PRESENT ILLNESS: Mr. Mcclain is a 86 year old male who presents today for follow-up evaluation after hospital discharge in July 2022. He has a history of heart disease, with CAD and aortic stenosis, s/p CABG and mechanical AVR in 2000. He has a long history of atrial fibrillation, previously underwent catheter ablation (? [facility]). Over time the atrial fibrillation recurred and became permanent. He was admitted to [facility] in late June 2022, had fallen and was found to have brain bleeding. This fortunately did not require surgery. He was found at that time to have slow ventricular response to the atrial fibrillation. Cardiology recommended outpatient cardiac monitoring to evaluate the bradycardia, at that time a pacemaker was not considered to be necessary. Since hospital discharge, Mr. Mcclain states he has felt well. He is very active, works out daily, walks on a treadmill and also uses weights for strength training. He is not limited in his physical activities. He has not been experiencing severe lightheadedness, near-syncope or syncope. I have confirmed and edited as necessary, the PFSH and ROS obtained by others. PAST MEDICAL HISTORY Diagnosis Date Aortic valve disorders At risk for stroke Cervicalgia Coronary atherosclerosis Dermatophytosis of nail Diverticulosis of colon (without mention of hemorrhage) Essential hypertension, benign Hemorrhage of rectum and anus Lesion of plantar nerve Lumbago Nonallopathic lesion of cervical region, not elsewhere classified Nonspecific elevation of levels of transaminase or lactic acid dehydrogenase (LDH) Obesity, unspecified Osteoarthrosis, unspecified whether generalized or localized, other specified sites Pure hyperglyceridemia Unspecified hyperplasia of prostate PAST SURGICAL HISTORY Procedure Laterality Date CHOLECYSTECTOMY COLONOSCOPY FLX DX W/COLLJ SPEC WHEN PFRMD 05/2009 Colonoscopy COLONOSCOPY FLX DX W/COLLJ SPEC WHEN PFRMD 05/01/2011 Colonoscopy PAST SURGICAL HISTORY OF 04/2001 aortic valve replacement surgery- mechanical - [facility] - Dr. Esteban TONSILLECTOMY PRIMARY/SECONDARY Tonsillectomy and adeniodectomy SOCIAL HISTORY Social History Tobacco Use Smoking status: Former Smokeless tobacco: Never Substance Use Topics Alcohol use: Yes Alcohol/week: 5.0 standard drinks Types: 1 Glasses of Wine (5oz), 1 Cans of Beer (12oz) per week Drug use: Never FAMILY HISTORY Problem Relation Age of Onset Alzheimer's Disease Father other (Other) Mother possible brain tumor None Brother No Known Problems Son No Known Problems Daughter ALLERGIES: ALLERGIES No Known Allergies MEDICATIONS: Ciclopirox (LOPROX) 8 % solution APPLY TOPICALLY TO AFFECTED TOENAIL(S) ONCE DAILY. CLEANSE TOENAILS ONCE WEEKLY WITH RUBBING ALCOHOL. triamcinolone acetonide (KENALOG) 0.1 % cream APPLY TO ITCHY AREAS ON BODY ONCE DAILY NEEDED vit C/E/Zn/coppr/lutein/zeaxan (PRESERVISION AREDS-2 ORAL) Take 1 capsule by mouth once daily. fluticasone (FLONASE) 50 mcg/actuation nasal spray 2 sprays in each nostril daily x1 week then 1-2 sprays in each nostril daily. (use smallest dose possible for symptom control after week 1). atorvastatin (LIPITOR) 40 mg tablet 1 tablet by ORAL/FEEDING TUBE route daily at bedtime. levETIRAcetam (KEPPRA) 750 mg tablet 1 tablet by ORAL/FEEDING TUBE route twice daily. allopurinol (ZYLOPRIM) 100 mg tablet Take 100 mg by mouth once daily. furosemide (LASIX) 40 mg tablet Take 80 mg by mouth twice daily. cholecalciferol, vitamin D3, 250 mcg (10,000 unit) tab Take 1 tablet by mouth once daily. escitalopram oxalate (LEXAPRO) 20 mg tablet Take 20 mg by mouth once daily. potassium chloride (KCL-20 ORAL) Take 1 tablet by mouth once daily. magnesium oxide,aspartate,citr 400 mg magnesium cap Take 1 capsule by mouth once daily. losartan (COZAAR) 50 mg tablet Take 50 mg by mouth once daily. warfarin (COUMADIN) 4 mg tablet Take 4-6 mg by mouth daily as directed. 4mg every day except for 6mg on the 7th day as of 09.03.2022 REVIEW OF SYSTEMS: Review of Systems Constitutional: Negative for chills, fever and malaise/fatigue. Respiratory: Negative for cough, hemoptysis, sputum production and shortness of breath. Cardiovascular: Negative for chest pain, palpitations, orthopnea and PND. Gastrointestinal: Neg (more content not included)...[facility] 10-06-2022 Nurse Note* Aleksandra Manuel MA - 10/06/2022 10:58 AM EST No cardiac concerns today documented in this encounterMer[facility]. [facility]02-13-2023 History of Present illness Narrative* George Galloway MD - 10/06/2022 10:20 AM EST PRIMARY CARE PHYSICIAN: Bashir Cortez ([facility]) [address] [place], [place] [id number] REFERRING PHYSICIAN: Bashir Cortez ([facility]) [address] [place] [address] Patient Care Team: Bashir Cortez MD as PCP - General (Family Medicine) Albert Mojica as Specialty Field Technical Support Consultant (Cardiology) CHIEF COMPLAINT: Evaluation of arrhythmia HISTORY OF PRESENT ILLNESS: Mr. Mcclain is a 86 year old male who presents today for follow-up evaluation after hospital discharge in July 2022. He has a history of heart disease, with CAD and aortic stenosis, s/p CABG and mechanical AVR in 2000. He has a long history of atrial fibrillation, previously underwent catheter ablation (? [facility]). Over time the atrial fibrillation recurred and became permanent. He was admitted to [facility] in late June 2022, had fallen and was found to have brain bleeding. This fortunately did not require surgery. He was found at that time to have slow ventricular response to the atrial fibrillation. Cardiology recommended outpatient cardiac monitoring to evaluate the bradycardia, at that time a pacemaker was not considered to be necessary. Since hospital discharge, Mr. Mcclain states he has felt well. He is very active, works out daily, walks on a treadmill and also uses weights for strength training. He is not limited in his physical activities. Hehas not been experiencing severe lightheadedness, near-syncope or syncope. I have confirmed and edited as necessary, the PFSH and ROS obtained by others. PAST MEDICAL HISTORY Diagnosis Date Aortic valve disorders At risk for stroke Cervicalgia Coronary atherosclerosis Dermatophytosis of nail Diverticulosis of colon (without mention of hemorrhage) Essential hypertension, benign Hemorrhage of rectum and anus Lesion of plantar nerve Lumbago Nonallopathic lesion of cervical region, not elsewhere classified Nonspecific elevation of levels of transaminase or lactic acid dehydrogenase (LDH) Obesity, unspecified Osteoarthrosis, unspecified whether generalized or localized, other specified sites Pure hyperglyceridemia Unspecified hyperplasia of prostate PAST SURGICAL HISTORY Procedure Laterality Date CHOLECYSTECTOMY COLONOSCOPY FLX DX W/COLLJ SPEC WHEN PFRMD 05/2009 Colonoscopy COLONOSCOPY FLX DX W/COLLJ SPEC WHEN PFRMD 05/01/2011 Colonoscopy PAST SURGICAL HISTORY OF 04/2001 aortic valve replacement surgery- mechanical - [facility] - Dr. Esteban TONSILLECTOMY PRIMARY/SECONDARY <AGE 14 Tonsillectomy and adeniodectomy SOCIAL HISTORY Social History Tobacco Use Smoking status: Former Smokeless tobacco: Never Substance Use Topics Alcohol use: Yes Alcohol/week: 5.0 standard drinks Types: 1 Glasses of Wine (5oz), 1 Cans of Beer (12oz) per week Drug use: Never FAMILY HISTORY Problem Relation Age of Onset Alzheimer's Disease Father other (Other) Mother possible brain tumor None Brother No Known Problems Son No Known Problems Daughter ALLERGIES: ALLERGIES No Known Allergies MEDICATIONS: Ciclopirox (LOPROX) 8 % solution APPLY TOPICALLY TO AFFECTED TOENAIL(S) ONCE DAILY. CLEANSE TOENAILS ONCE WEEKLY WITH RUBBING ALCOHOL. triamcinolone acetonide (KENALOG) 0.1 % cream APPLY TO ITCHY AREAS ON BODY ONCE DAILY NEEDED vit C/E/Zn/coppr/lutein/zeaxan (PRESERVISION AREDS-2 ORAL) Take 1 capsule by mouth once daily. fluticasone (FLONASE) 50 mcg/actuation nasal spray 2 sprays in each nostril daily x1 week then 1-2 sprays in each nostril daily. (use smallest dose possible for symptom control after week 1). atorvastatin (LIPITOR) 40 mg tablet 1 tablet by ORAL/FEEDING TUBE route daily at bedtime. levETIRAcetam (KEPPRA) 750 mg tablet 1 tablet by ORAL/FEEDING TUBE route twice daily. allopurinol (ZYLOPRIM) 100 mg tablet Take 100 mg by mouth once daily. furosemide (LASIX) 40 mg tablet Take 80 mg by mouth twice daily. cholecalciferol, vitamin D3, 250 mcg (10,000 unit) tab Take 1 tablet by mouth once daily. escitalopram oxalate (LEXAPRO) 20 mg tablet Take 20 mg by mouth once daily. potassium chloride (KCL-20 ORAL) Take 1 tablet by mouth once daily. magnesium oxide,aspartate,citr 400 mg magnesium cap Take 1 capsule by mouth once daily. losartan (COZAAR) 50 mg tablet Take 50 mg by mouth once daily. warfarin (COUMADIN) 4 mg tablet Take 4-6 mg by mouth daily as directed. 4mg every day except for 6mg on the 7th day as of 09.03.2022 REVIEW OF SYSTEMS: Review of Systems Constitutional: Negative for chills, fever and malaise/fatigue. Respiratory: Negative for cough, hemoptysis, sputum production and shortness of breath. Cardiovascular: Negative for chest pain, palpitations, orthopnea and PND. Gastrointestinal: Negative for abdominal pain, blood in stool, melena, nausea and vomiting. Genitourinary: Negative for hematuria. Skin: Negative for rash. Neurological: Negative for dizziness and loss of consciousness. PHYSICAL EXAMINATION: BP 166/63 Pulse 66 Ht 5' 8 (1.73m) Wt 175 lb (79.4kg) SpO2 94% BMI 26.61 kg/(m^2). Physical Exam Vitals reviewed. Constitutional: General: He is not in acute distress. Appearance: Normal appearance. HENT: Head: Normocephalic and atraumatic. Cardiovascular: Rate and Rhythm: Bradycardia present. Rhythm irregularly irregular. Heart sounds: Murmur heard. Systolic murmur is present with a grade of 1/6. Comments: +mechanical heart sounds Pulmonary: Effort: Pulmonary effort is normal. No respiratory distress. Breath sounds: Normal breath sounds. No wheezing, rhonchi or rales. Musculoskeletal: Cervical back: Neck supple. Skin: General: Skin is warm and dry. Neurological: General: No focal deficit present. Mental Status: He is alert and oriented to person, place, and time. Psychiatric: Mood and Affect: Mood normal. Behavior: Behavior normal. Thought Content: Thought content normal. CARDIOVASCULAR MEDICINE TESTING: Electrocardiogram: Atrial fibrillation, average ventricular sponsor 50 bpm; right bundle branch block and left anterior fascicular block (QRS 140 ms); QTc 468 ms I have personally reviewed the Electrocardiogram. Cardiac monitoring 07/24/2022 - 08/06/2022: atrial fibrillation; at times with slow ventricular response rates but most of the time the slow rates are during nocturnal or investment recovery technician hours; daytimebradycardia was evidently not symptomatic. Brief pauses noted, also asymptomatic. ASSESSMENT/PLAN: 1. Persistent atrial fibrillation (HCC) - ICD9: 427.31, ICD10: I48.19 (primary diagnosis) Probably permanent atrial fibrillation; asymptomatic; associated with slow ventricular response rates but does not seem to warrant a pacemaker at this point 2. History of radiofrequency ablation (RFA) procedure for cardiac arrhythmia - ICD9: V15.1, ICD10: Z98.890 3. Bradycardia - ICD9: 427.89, ICD10: R00.1 Slow ventricular response rates to the atrial fibrillation 4. Chronic diastolic heart failure (HCC) - ICD9: 428.32, ICD10: I50.32 Stable; compensated presently 5. At risk for stroke - ICD9: V15.89, ICD10: Z91.89 CHADS2-Vasc Score Breakdown 5 Total Score 2 Age >= 75 years old 1 History of CHF 1 History of hypertension 1 History of vascular disease 6. Current use of long 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 - ICD9: V58.61, ICD10: Z79.01 Seems to have favorable risk:benefit IMPRESSION: Mr. Mcclain has persistent atrial fibrillation, perhaps permanent form as there is not a strategy at this time to restore and maintain sinus rhythm. 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 Atthis point I do not think there has been documentation of symptomatic bradycardia, in that case I would not strongly recommend cardiac pacing. If he develops symptoms that are clearly related to bradycardia he would be a candidate for a pacemaker. At this point, after discussion with Mr. Mcclain and his , I think it would be best to continue to follow him clinically and consider a pacemaker if he develops symptoms. He follows up with Dr. Mojica of [facility]. I had a detailed discussion with Mr. Mcclain regarding my evaluation and recommendations. After our discussion, Mr. Mcclain expressed his understanding and I answered all his questions to his apparent satisfaction. PLAN AND RECOMMENDATIONS: Continue with current plan of care from EP standpoint. Consider a pacemaker if he more clearly develops symptoms attributable to bradycardia. Return if symptoms worsen or fail to improve. He will follow up with his general construction plumber, Dr. Mojica. I would be happy to see Mr. Mcclain in the future if Dr. Mojica or Mr. Mcclain desire. George Galloway MD 10/06/2022 Medical Decision Making: Problems: Moderate: 2+ stable chronic illnesses Data: Unique source(s) for external note(s) reviewed: 3+ Unique test result(s) reviewed: 3+ Unique test(s) ordered: 1 Risk: Moderate: Moderate risk from testing/treatment, Drug management and Decision on minor surgery w/ risk factors Medical Decision Making Level: 4 - Moderate documented in [facility] [facility] Discharge summary Author Randal Noriega [facility] October 02, 2022 12:27pm Note Date/Time October 02, 2022 1 2:27pm [facility] Physical Therapy [facility] [place] [address] / REHABILITATION SERVICES DISCHARGE SUMMARY MR#: [id number] Acct: [id number] Name: GEORGE MCCLAIN Rep #: [id number] : 1935 86 From: Randal Noriega PT, ATC Referring Dr.: Dr. Fernando Cortez MD Statu s: REG RCR Insurance: [facility] [id number] SELF PAY INSURANCE It has been my pleasure to treat GEORGE MCCLAIN referred by Dr. Fernando Cortez MD, with the diagnosis of Gait instability for a total of 9 visit(s). Discharge Date: Please see the following information for a summary of their discharge status. Subjective: I feel like the only thing I lack right now is balance. I feel like I can continue with ex's at the [facility] for now LB Pain Intensity (Out of 10): 0 % Improvement: 50 Objective/Function: Pt is now I with gym routine. L LE MMT is 5/5 throughout with exception to L knee hip abduction and adduction which is 4+/5. FGA: 23/30 above average. Rx goals achieved Goal 1:: Increase L LE strength x 1 grade to aid with stair negotiation Goal Progress: Goal Met Goal 2:: Increase FGA score x 5 points to aid with future falls Goal Progress: Goal Met Goal 3:: I with HEP Goal Progress: Goal Met Plan: Discharge to [facility] If there are questions or concerns regarding this patient's physical therapy, please feel free to call me at [phone]. Thank you for the referral of thispatient. Sincerely, Randal Noriega, PT, ATC Balance/Gait/Functional tests - Balance/Special Test Scores Functional Gait Assessment Score: 23 % Disability: 23.3400 Lower Extremity Functional Score: 68 <Electronically signed by Randal Noriega PT, ATC> 10/02/22 1227 CC: Dr. Fernando Cortez MD ~ [facility] Signed [facility] Work Phone: [phone] 229-177301-11-2023 NoteHNO ID: [id number] Author: Sweta Jenkins APRN.VANDANA Service: ? Author Type: Nurse Practitioner Type: Progress Notes Filed: 09/03/2022 1:54 PM Note Text: NEUROSURGERY FOLLOW UP OFFICE NOTE Sweta Jenkins APRN.CNP Date of visit: September 03, 2022 Patient Name: Mr.Robert Mcclain Date of : 1935 Current Age: [age] year old Sex: male MRN/E# [id number] Last Office Visit: 08/06/2022 Chief Complaint: Patient presents with: Established Patient The patient presents for a follow up with imaging (CT B) for evaluation. This is an 86-year-old male with a PMHx of A. fib, AV heart valve replacement -on Coumadin, HLD, CAD, CABG who was seen in consult on 07/22/2022 at [facility] after being transferred from an outside hospital. He had been seen in an outside ED with strokelike symptoms after a fall striking his head. The patient reported that he was getting up from his chair when he felt dizzy which caused him to fall. He then developed a left facial droop and slurred speech. Work-up was completed and showed a small subarachnoid hemorrhage and subdural hematoma without significant mass-effect. CTA was completed and was negative. Once transferred he was evaluated and imaging was reviewed. This showed a stable small intracranial bleed along the left side of the falx. Neurologically he was intact on exam without focal deficit. Blood thinning medications were placed on hold and he was given a short course of Keppra for seizure prophylaxis. Repeat imaging remained stable and he was cleared to resume DVT prophylaxis given his history of aortic valve and risk for thromboembolic event. He was advised that he may resume his normal anticoagulation medications on 07/29/2022. Recommendation was to follow-up in [address] brain. Seen on 08/06/2022 and reported that he was overall doing well. He denied any significant headache, visual changes or seizure activity. He and his both felt he had intermittent episodes of mild speech slurring but it was gradually improving. His gait was not back to normal so he was utilizing a walker for assist. Prior to his visit he had been seen by his construction plumber who adjusted his medications as it was thought that bradycardia was the cause of his recent fall. Neurologically he was intact on exam without focal deficit. CT brain was reviewed along with . This demonstrated interval resolution of the left interhemispheric subarachnoid hemorrhage without evidence of any acute intracranial bleeding. Recommendation was to follow-up in [address] brain prompting his visit today. Since last visit he states he is overall doing well and denies any new neurological complaints or concerns. He does report and his concurs, being very tired and sleeping more than usual. Otherwise no complaints. He presents for image review, evaluation and plan of care. Smoker: Former Diabetic: No Anticoagulants / Antiplatelets: Coumadin Occupation: Retired Symptoms: Fatigue PREVIOUS CONSERVATIVE TREATMENTS: [facility] PREVIOUS SURGERY: None PAIN EVALUATION No data found in the last 1 encounters. PAST MEDICAL HISTORY Diagnosis Date Aortic valve disorders Cervicalgia Coronary atherosclerosis Dermatophytosis of nail Diverticulosis of colon (without mention of hemorrhage) Essential hypertension, benign Hemorrhage of rectum and anus Lesion of plantar nerve Lumbago Nonallopathic lesion of cervical region, not elsewhere classified Nonspecific elevation of levels of transaminase or lactic acid dehydrogenase (LDH) Obesity, unspecified Osteoarthrosis, unspecified whether generalized or localized, other specified sites Pure hyperglyceridemia Unspecified hyperplasia of prostate PAST SURGICAL HISTORY Procedure Laterality Date CHOLECYSTECTOMY COLONOSCOPY FLX DX W/COLLJ SPEC WHEN PFRMD 05/2009 Colonoscopy COLONOSCOPY FLX DX W/COLLJ SPEC WHEN PFRMD 05/01/2011 Colonoscopy PAST SURGICAL HISTORY OF 04/2001 aortic valve replacement surgery- mechanical - [facility] - Dr. Esteban TONSILLECTOMY PRIMARY/SECONDARY Tonsillectomy and adeniodectomy FAMILY HISTORY Problem Relation Age of Onset Alzheimer's Disease Father other (Other) Mother possible brain tumor None Brother No Known Problems Son No Known Problems Daughter ALLERGIES No Known Allergies Current Outpatient Medications Medication Sig Dispense Refill triamcinolone acetonide (KENALOG) 0.1 % cream APPLY TO ITCHY AREAS ON BODY ONCE DAILY NEEDED vit C/E/Zn/coppr/lutein/zeaxan (PRESERVISION AREDS-2 ORAL) Take 1 capsule by mouth once daily. fluticasone (FLONASE) 50 mcg/actuation nasal spray 2 sprays in each nostril daily x1 week then 1-2 sprays in each nostril daily. (use smallest dose possible for symptom control after week 1). atorvastatin (LIPITOR) 40 mg tablet 1 tablet by ORAL/FEEDING TUBE route daily at bedtime. 30 tablet 0 allopurinol (ZYLOPRIM) 100 mg (more content not included)...[facility]01-11-2023 History of Present illness Narrative* Sweta Jenkins APRN.CNP - 09/03/2022 1:30 PM EST NEUROSURGERY FOLLOW UP OFFICE NOTE Sweta Jenkins APRN.CNP Date of visit: September 03, 2022 Patient Name: Mr.Robert Mcclain Date of : 1935 Current Age: [age] year old Sex: male MRN/E# [id number] Last Office Visit: 08/06/2022 Chief Complaint: Patient presents with: Established Patient The patient presents for a follow up with imaging (CT B) for evaluation. This is an 86-year-old male with a PMHx of A. fib, AV heart valve replacement -on Coumadin, HLD, CAD, CABG who was seen in consult on 07/22/2022 at [facility] after being transferred from an outside hospital. He had been seen in an outside ED with strokelike symptoms after a fall striking his head. The patient reported that he wasgetting up from his chair when he felt dizzy which caused him to fall. He then developed a left facial droop and slurred speech. Work-up was completed and showed a small subarachnoid hemorrhage and subdural hematoma without significant mass-effect. CTA was completed and was negative. Once transferred he was evaluated and imaging was reviewed. This showed a stable small intracranial bleed along the left side of the falx. Neurologically he was intact on exam without focal deficit. Blood thinning medications were placed on hold and he was given a short course of Keppra for seizure prophylaxis. Repeat imaging remained stable and he was cleared to resume DVT prophylaxis given his history of aortic valve and risk for thromboembolic event. He was advised that he may resume his normal anticoagulation medications on 07/29/2022. Recommendation was to follow-up in [address] brain. Seen on 08/06/2022 and reported that he was overall doing well. He denied any significant headache, visual changes or seizure activity. He and his both felt he had intermittent episodes of mild speechslurring but it was gradually improving. His gait was not back to normal so he was utilizing a walker for assist. Prior to his visit he had been seen by his construction plumber who adjusted his medications as it was thought that bradycardia was the cause of his recent fall. Neurologically he was intact onexam without focal deficit. CT brain was reviewed along with . This demonstrated interval resolution of the left interhemispheric subarachnoid hemorrhage without evidence of any acute intracranial bleeding. Recommendation was to follow-up in [address] brain prompting his visit today. Since last visit he states he is overall doing well and denies any new neurological complaints or concerns. He does report and his concurs, being very tired and sleeping more than usual. Otherwise no complaints. He presents for image review, evaluation and plan of care. Smoker: Former Diabetic: No Anticoagulants / Antiplatelets: Coumadin Occupation: Retired Symptoms: Fatigue PREVIOUS CONSERVATIVE TREATMENTS: TBI Clinic PREVIOUS SURGERY: None PAIN EVALUATION No data found in the last 1 encounters. PAST MEDICAL HISTORY Diagnosis Date Aortic valve disorders Cervicalgia Coronary atherosclerosis Dermatophytosis of nail Diverticulosis of colon (without mention of hemorrhage) Essential hypertension, benign Hemorrhage of rectum and anus Lesion of plantar nerve Lumbago Nonallopathic lesion of cervical region, not elsewhere classified Nonspecific elevation of levels of transaminase or lactic acid dehydrogenase (LDH) Obesity, unspecified Osteoarthrosis, unspecified whether generalized or localized, other specified sites Pure hyperglyceridemia Unspecified hyperplasia of prostate PAST SURGICAL HISTORY Procedure Laterality Date CHOLECYSTECTOMY COLONOSCOPY FLX DX W/COLLJ SPEC WHEN PFRMD 05/2009 Colonoscopy COLONOSCOPY FLX DX W/COLLJ SPEC WHEN PFRMD 05/01/2011 Colonoscopy PAST SURGICAL HISTORY OF 04/2001 aortic valve replacement surgery- mechanical - [facility] - Dr. Esteban TONSILLECTOMY PRIMARY/SECONDARY <AGE 12 Tonsillectomy and adeniodectomy FAMILY HISTORY Problem Relation Age of Onset Alzheimer's Disease Father other (Other) Mother possible brain tumor None Brother No Known Problems Son No Known Problems Daughter ALLERGIES No Known Allergies Current Outpatient Medications Medication Sig Dispense Refill triamcinolone acetonide (KENALOG) 0.1 % cream APPLY TO ITCHY AREAS ON BODY ONCE DAILY NEEDED vit C/E/Zn/coppr/lutein/zeaxan (PRESERVISION AREDS-2 ORAL) Take 1 capsule by mouth once daily. fluticasone (FLONASE) 50 mcg/actuation nasal spray 2 sprays in each nostril daily x1 week then 1-2 sprays in each nostril daily. (use smallest dose possible for symptom control after week 1). atorvastatin (LIPITOR) 40 mg tablet 1 tablet by ORAL/FEEDING TUBE route daily at bedtime. 30 tablet0 allopurinol (ZYLOPRIM) 100 mg tablet Take 100 mg by mouth once daily. furosemide (LASIX) 40 mg tablet Take 80 mg by mouth twice daily. cholecalciferol, vitamin D3, 250 mcg (10,000 unit) tab Take 1 tablet by mouth once daily. escitalopram oxalate (LEXAPRO) 20 mg tablet Take 20 mg by mouth once daily. potassium chloride (KCL-20 ORAL) Take 1 tablet by mouth once daily. magnesium oxide,aspartate,citr 400 mg magnesium cap Take 1 capsule by mouth once daily. losartan (COZAAR) 50 mg tablet Take 50 mg by mouth once daily. warfarin (COUMADIN) 4 mg tablet Take 4-6 mg by mouth daily as directed. 4mg every day except for 6mg on the 7th day as of 09.03.2022 levETIRAcetam (KEPPRA) 750 mg tablet 1 tablet by ORAL/FEEDING TUBE route twice daily. 60 tablet 0 No current facility-administered medications for this visit. REVIEW OF SYSTEMS Review of Systems Constitutional: Positive for fatigue. Negative for chills, diaphoresis (Negative for night sweats.)and fever. HENT: Negative for ear discharge and rhinorrhea. Eyes: Negative for discharge. Respiratory: Negative for cough, shortness of breath and wheezing. Cardiovascular: Negative for chest pain, palpitations and leg swelling. Gastrointestinal: Negative for constipation, diarrhea, nausea and vomiting. Endocrine: Negative for cold intolerance and heat intolerance. Genitourinary: Negative for frequency. Negative for urinary incontinence and urinary retention. Musculoskeletal: Negative for back pain, joint swelling, myalgias and neck pain. Skin: Negative for rash (Negative for hives and skin lesions.). Allergic/Immunologic: Negative for environmental allergies and food allergies. Negative for contact allergy, seasonal allergies. Neurological: Negative for dizziness, seizures, syncope, weakness, light- headedness, numbness (Negative for numbness in extremities.) and headaches. Hematological: Does not bruise/bleed easily. Psychiatric/Behavioral: The patient is not nervous/anxious. Negative for depression. OBJECTIVE: BP 117/59 Pulse 67 Ht 5' 8 (1.73m) Wt 174 lb 2.6 oz (79.0kg) SpO2 97% BMI 26.49 kg/(m^2). [place] Coma Scale: Best eye response: - 1. No eye opening. - 2. Eye opening in response to pain. - 3. Eye opening to speech. 4/ 4. Eyes opening spontaneously Best verbal response: - 1. No verbal response - 2. Incomprehensible sounds. - 3. Inappropriate words. - 4. Confused. 5/ 5. Oriented. Best motor response -1. No motor response -2. Extension to pain -3. Abnormal flexion to pain -4. Flexion/Withdrawal to pain -5. Localizes to pain. 6/6. Obeys commands. Total: 15/15 PHYSICAL EXAM: Mental State : Alert, memory function unremarkable. Attention span and concentration normal for patient's age. Speech normal, no receptive or expressive speech deficit. Recent and remote memory normal. Orientation : Oriented to person, place and time. Higher Cortical Function : Intact speech and language. Spontaneous speech and comprehension normal.Fund of knowledge intact for pt level of education. Cranial Nerves : II: No visual field cut no blurring, Makes and sustains eye contact III, IV, : Normal, no double vision or drooping. Pupils equal and reactive to light. Extraocularmuscles intact. No nystagmus V: Normal sensation on the face, normal jaw movements VII: No paresis on either side VIII: No gross hearing deficit IX: Good and equal shoulder shrugs XII: Tongue midline, no fasciculations Sensory: Normal Sensation in upper and lower extremities and trunk to touch and noxious stimuli. Motor: Normal muscle tone and bulk. No tremor or uncontrollable movements. No spasticity or tremor. Strength: Upper Extremities : R L Deltoid 5/5 5/5 Biceps 5/5 5/5 Triceps 5/5 5/5 Wrist Ext 5/5 5/5 Wrist Flx 5/5 5/5 Hand Int 5/5 5/5 Lower Extremities : Hip Flexors 5/5 5/5 Hip Extensors 5/5 5/5 Hip Abductors 5/5 5/5 Straight leg Neg Neg Ankle dorsiflex /5 5/5 Ankle Plantar 5/5 5/5 Heel Walking intact intact Toe Walking intact intact Reflexes : Biceps 2+ 2+ Triceps 2+ 2+ Wrist 2+ 2+ Patellar 2+ 2+ Achilles 2+ 2+ Rutledge's Neg Neg Tinel's Neg Neg Phalen's Neg Neg Cerebellar Function : Normal finger to nose. Normal rapid alternating movements. No ataxia. Negative Romberg. Gait and Station: Normal gait. No assistive device usage. Pulmonary: Lungs without cough, audible wheeze. Respirations unlabored. Cardiac: Regular rate and rhythm. No murmer, gallop or rub. Data Review IMAGING STUDIES: CT Brain WO IVCON performed today 09/03/22 demonstrates: Resolution of previously described left interhemispheric subarachnoid hemorrhage. No evidence of acute intracranial hemorrhage. No change in ventricular size. Await final radiology report. Personal review of medical records: I reviewed with the patient, history, physical exam, the imagesand the chart. ASSESSMENT/PLAN: (S06.5XAA) SDH (subdural hematoma) (primary encounter diagnosis) (S06.6X0D) Subarachnoid hemorrhage following injury, no loss of consciousness, subsequent encounter Comment: The patient returns today for a follow-up with CT brain. He reports that he is overall doing well and denies any specific complaints or concerns. Neurologically he is intact on exam without focal deficit. He and his both report that he has been very sleepy lately and takes naps more often than usual. I reviewed his chart and it appears that he continues to take Keppra 750 mg twice daily. States he has a few pills left. I told him to decrease this dose to 1 tablet at bedtime and then discontinue. I suspect the sleepiness is related to the anticonvulsant. I reviewed his CT scan which shows complete resolution of the left interhemispheric subarachnoid hemorrhage. The final radiology report however. If there are any issues I will contact him. He continues to take his Coumadin asinstructed and is scheduled for a follow-up in early September 2022 with his construction plumber. At this point no further follow-up is indicated. I told him and his to contact the office in the future should the need arise. All of his questions and concerns were addressed in detail. Plan: Follow up as needed. EMILIANO Iglesias Neurosurgery Nurse Practitioner [facility] Follow Up: Return for new or worsening symptoms. documented in this encounterMer[facility] [facility]12[facility]-2022 NoteHNO ID: [id number] Author: Denice Jane, PhD Service: ? Author Type: Psychologist Type: Progress Notes Filed: 08/13/2022 11:54 AM Note Text: [facility] Department of Neurology Multidisciplinary Traumatic Brain Injury Clinic Neuropsychological Evaluation Report PATIENT NAME: George Mcclain DATE OF : 1935 DATE OF SERVICE: 08/11/2022 REFERRAL SOURCE: Sweta Jenkins APRN, CNP This neuropsychological assessment is part of a multidisciplinary evaluation conducted in the [facility] Neurological [place]. The assessment consisted of a brief interview with Saleem and his , Angela Collazo, neurobehavioral examination, and administration of standardized neuropsychological assessments. This report is intended to be considered as only one part of the comprehensive examination. The results will be communicated to the referring physician via shared electronic medical record and in a consensus conference meeting. Of note, the current evaluation took place during the COVID-19 pandemic and thus several safety precautions were in place, including use of a facemask, which can limit the evaluation. George is an 86 year old male who was referred for a neuropsychological evaluation to evaluate cognitive sequelae from a recent head injury. George sustained a fall at home on 07/21/2022 when he became dizzy getting up from his chair and subsequently fell and struck his head. He initially presented to the emergency department at [facility] with stroke like symptoms and was transferred to [facility]. MRI of the brain indicated a stable mild subarachnoid hemorrhage in the left interhemispheric fissure. He was subsequently admitted to the hospital and discharged home on 07/24/2022. Injury Description. See medical records for full review. Head injury parameters obtained from his Epic chart are described below: Duration of Loss of Consciousness: none Post-traumatic amnesia: no recall of fall, first recall after is of transport to [facility] [place] Coma Scale: 15 Neuroimaging findings: stable mild subarachnoid hemorrhage in the left interhemispheric fissure Residual physical symptoms: mild headaches, slurred speech, gait imbalance CURRENT COGNITIVE CONCERNS: Specific concerns include changes in memory although his noted she is seeing consistent improvement in cognitive abilities since the initial injury. She reported that she has also noted some personality changes, sharing George is somewhat short tempered at times. Initiation of tasks is reported to be unchanged, with George sharing Angela Collazo instructs him daily in what he needs to do. Activities of Daily Living: Hygiene: reports independent Crocodile Farmer: will assist but limited by vision Medications: assists with management due to vision Finances: assists due to vision impairments Driving: recently resumed driving in local areas during daytime only Work/Volunteer Work: retired Engagement in Leisure Pursuits: reported has resumed prior activity level MEDICAL HISTORY: See records for full review. Relevant diagnoses include sensorineural hearing loss bilaterally and macular degeneration. George also has a history of heart valve replacement on 05/04/2001, hypertension, atrial fib and hyperlipidemia. George denied any history of head injury with loss of consciousness, stroke, or seizure. There is no prior history of cognitive concerns. Review of select systems is notable for: Sensory difficulties: macular degeneration and bilateral hearing loss Motor Changes: balance concerns Chronic pain: headaches Sleep: no concerns Daytime fatigue: no concerns Substance use: denied Legal history: denied Recent Neurological workup 08/06/2022 revealed: Neurological Exam: gait difficulty, speech concerns, headaches, GCS 15/15 Brain MRI/EEG: interval resolution of left interhemispheric fissure subarachnoid hemorrhage Medication List: see chart PSYCHIATRIC HISTORY: George denied any prior engagement in psychiatric treatment. He currently denied any mood concerns. As previously noted his indicated that George can be short tempered at times but this is improving weekly. George denied any auditory/visual hallucinations or suicidal ideation. PSYCHOSOCIAL HISTORY: Developmental history: Milestones were met within expected timeframes Education: Completed Bachelor's degree with no history of attention/learning concerns Occupation: Retired. 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 Family: Lives with his in their home of 30 years. Shared that they do have a one floor set up. BEHAVIORAL OBSERVATIONS: George was accompanied by his to the appointment. His ability to participate in the testing was severely limited due to his hearing and visual impairmen (more content not included)... [facility]12-21-2022 History of Present illness Narrative* Denice Jane, PhD - 08/13/2022 11:53 AM EST [facility] Department of Neurology Multidisciplinary Traumatic Brain Injury Clinic Neuropsychological Evaluation Report PATIENT NAME: George Mcclain DATE OF : 1935 DATE OF SERVICE: 08/11/2022 REFERRAL SOURCE: Sweta Jenkins APRN, CNP This neuropsychological assessment is part of a multidisciplinary evaluation conducted in the [facility] Neu[facility] [place]. The assessment consisted of a brief interview with Saleem and his , Angela Collazo, neurobehavioral examination, and administration of standardized neuropsychological assessments. This report is intended to be considered as only one partof the comprehensive examination. The results will be communicated to the referring physician via shared electronic medical record and in a consensus conference meeting. Of note, the current evaluation took place during the COVID- 19 pandemic and thus several safety precautions were in place, including use of a facemask, which can limit the evaluation. George is an 86 year old male who was referred for a neuropsychological evaluation to evaluate cognitive sequelae from a recent head injury. George sustained a fall at home on 07/21/2022 whenhe became dizzy getting up from his chair and subsequently fell and struck his head. He initially presented to the emergency department at [facility] with stroke like symptoms and wastransferred to [facility]. MRI of the brain indicated a stable mild subarachnoid hemorrhage in the left interhemispheric fissure. He was subsequently admitted to the hospital and discharged home on 07/24/2022. Injury Description. See medical records for full review. Head injury parameters obtained from his Epic chart are described below: Duration of Loss of Consciousness: none Post-traumatic amnesia: no recall of fall, first recall after is of transport to [facility] Ed Coma Scale: 15 Neuroimaging findings: stable mild subarachnoid hemorrhage in the left interhemispheric fissure Residual physical symptoms: mild headaches, slurred speech, gait imbalance CURRENT COGNITIVE CONCERNS: Specific concerns include changes in memory although his noted sheis seeing consistent improvement in cognitive abilities since the initial injury. She reported thatshe has also noted some personality changes, sharing George is somewhat short tempered at times. Initiation of tasks is reported to be unchanged, with George sharing Angela Collazo instructs him daily in what he needs to do. Activities of Daily Living: Hygiene: reports independent Crocodile Farmer: will assist but limited by vision Medications: assists with management due to vision Finances: assists due to vision impairments Driving: recently resumed driving in local areas during daytime only Work/Volunteer Work: retired Engagement in Leisure Pursuits: reported has resumed prior activity level MEDICAL HISTORY: See records for full review. Relevant diagnoses include sensorineural hearing lossbilaterally and macular degeneration. George also has a history of heart valve replacement on 05/04/2001, hypertension, atrial fib and hyperlipidemia. George denied any history of head injury with loss of consciousness, stroke, or seizure. There is no prior history of cognitive concerns. Review of select systems is notable for: Sensory difficulties: macular degeneration and bilateral hearing loss Motor Changes: balance concerns Chronic pain: headaches Sleep: no concerns Daytime fatigue: no concerns Substance use: denied Legal history: denied Recent Neurological workup 08/06/2022 revealed: Neurological Exam: gait difficulty, speech concerns, headaches, GCS 15/15 Brain MRI/EEG: interval resolution of left interhemispheric fissure subarachnoid hemorrhage Medication List: see chart PSYCHIATRIC HISTORY: George denied any prior engagement in psychiatric treatment. He currently denied any mood concerns. As previously noted his indicated that George can be short tempered at times but this is improving weekly. George denied any auditory/visual hallucinations or suicidal ideation. PSYCHOSOCIAL HISTORY: Developmental history: Milestones were met within expected timeframes Education: Completed Bachelor's degree with no history of attention/learning concerns Occupation: Retired. 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 Family: Lives with his in their home of 30 years. Shared that they do have a one floor set up. BEHAVIORAL OBSERVATIONS: George was accompanied by his to the appointment. His ability to participate in the testing was severely limited due to his hearing and visual impairments. George was unable to complete many of the tasks. He reported onset of eye pain during the testing which he attributed to trying to see the test materials. He was fully oriented. No motor abnormalities were observed. Speech was fluent with no observed word-finding problems or paraphasias in casual conversation. Thought processes were logical and goal- oriented. George was noted, however, to become confused at times with test directions. He was also noted to follow directions from a prior task when engaged in anew task. Mood appeared euthymic with congruent affect. Task engagement appeared suboptimal based on embedded effort measures and the current results are likely an underestimate of his true abilities. COGNITIVE RESULTS: Tests Administered: ACS Word Choice, Galvin Verbal Learning Test, WAIS-IV digit span subtest, DKEFS Brighton Making conditions 1 and 2, Color-Word Interference color naming task, Verbal Fluency subtests, Clock Drawing, PHQ-9, ADILIA-7 Premorbid abilities are estimated to fall in the average range based on education/occupational histories. George was unable to complete a word reading task due to his vision impairment. Memory: Learning of a word list presented over repeated trials fell within the 5th percentile with regard to total targets learned. Delayed recall of the list also fell within the 5th percentile and percent of words retained across the two tasks fell within the 5-16th percentile of his age based peers. On delayed recognition tasks George correctly identified nine of the twelve targets but also provided five false positive responses, a performance which is impaired relative to peers. Attention/working memory: Overall digit repetition was average; forward span was average, backward span was borderline, and sequencing span was average. Processing speed: Number to symbol transcoding was not completed due to his visual impairments. Visual scanning was attempted but discontinued after completion of Brighton Making Conditions 1 and 2 due to his visual difficulties. His performance on Condition 1, requiring him to scan and identify targets, was severely impaired. He demonstrated good accuracy on Condition 2, requiring that he sequence numbers, but was unable to complete the task within the time limit due to difficulty seeing the targets. Executive functions: George was unable to complete many of the executive function tasks due to his visual impairments. His performance on a verbal fluency task requiring him to switch between two different semantic groups was noted to fall within the extremely low range. Verbal abilities: Letter and category fluencies were high average and low average, respectively. Visuospatial abilities: Performance on a clock drawing task indicated that George was able to accurately construct the contour of the clock but he was noted to repeat some of the numbers. He set the hands to the correct time but mixed up the hour and minute hands. Emotional functions: George's responses to subjective checklists assessing mood indicated endorsement of moderate levels of depression and anxiety at the present time. Review of his item responses indicated endorsement of frequent difficulty with sleep and daytime fatigue, concentration and psychomotor slowing. He occasionally experienced difficulty with changes in appetite and diminished interest in leisure pursuits. He reported his depressive symptoms make it somewhat difficult to engage in his daily routine. Regarding anxiety symptoms George reported frequently feeling nervous and on edge,engaging in worry about many different things and irritability. He indicated his anxiety symptoms make it very difficult to engage in his daily routine. IMPRESSIONS/SUMMARY George is an 86 year old, male who sustained a traumatic brain injury as the result of a fall on 07/21/2022. He denied loss of consciousness and post traumatic amnesia appears to be of several hours duration. Neuroimaging revealed a mild subarachnoid hemorrhage in the left interhemispheric fissure. He was initially treated at [facility] and due to concerns about possible stroke was transferred to [facility]. He was hospitalized for several days and then discharged to home. He is not currently receiving any outpatient therapies but did indicate a plan to resume physical therapy to address his balance concerns. Neuropsychological testing is limited and may not be an accuratereflection of his true abilities due to his significant visual and hearing impairments. George demonstrated intact performance on screening measures of attention and verbal expressive language while deficits were seen on measures assessing memory, executive functions and visual spatial abilities. Th ere is also endorsement of affective distress characterized by depressive and anxiety symptoms. Based on head injury parameters, George likely sustained a complex mild traumatic brain injury. Typically, cognitive sequelae from this magnitude of brain injury improve and return to baseline withinweeks to a few months. Reasons there may be an incomplete recovery or continued subjective concernsinclude physical residuals, psychological status and age. Given George's age at the time of his injury it is expected that his recovery will be slower. His does report seeing some improvements in cognitive and personality function, particularly with regard to memory, since George's discharge home. RECOMMENDATIONS During the evaluation discussion included George's ability to safely engage in ADLs and instrumental activities of daily living. His macular degeneration appears to be a limiting factor in his ability to engage in tasks such as reading, managing his finances and navigating in the community. Recommendation was made for referral to community based occupational therapy for home evaluation and recommendations for assistive devices to help improve functional vision skills. George and his were agreeable to this referral. This examiner subsequently facilitated a referral to Angela Dang, occupational therapist. Continued monitoring of mood. Both George and Angela Collazo acknowledged some mild personality changes due to the traumatic brain injury which have been improving weekly. If symptoms persist beyond the next month he may benefit from consultation with mental health services. Georeg indicated that he had resumed driving the date of this evaluation. His reported she wasa passenger in the vehicle and did not have any concerns about his driving abilities when she is with him and providing him with navigation directions. George's ability to drive should continue to bemonitored by his medical providers. The current evaluation was performed in the context of medical care and in response to a specific internal referral question. It is not meant to constitute a legal or disability evaluation. The results of this evaluation will be communicated to the patient/referring physician via shared electronic medical record and/or feedback. Denice Jane, Ph.D. Staff Neuropsychologist [place] License #[id number] NSI score = 10 MPAI-4 scores Scale Standard (National Sample) Ability 39 Adjustment 28 Participation 36 Total Score 31 Neurobehavioral Status Exam (interview): 1 hour Time testing and scoring (fly winder): 1.5 hours Time completing additional tests, analyzing, interpreting and incorporating other available medicalinformation, clinical data review, and report writing (by neuropsychologist): 2 hours documented in [facility] NoteHNO ID: [id number] Author: Jose Corona MD Service: ? Author Type: Physician Type: Progress Notes Filed: 08/11/2022 1:54 PM Note Text: IMPRESSION: George Mcclain is a 86 year old male presents for mild TBI with SAH/SDH after GLF at home. Discharged home without HHC. Initial deficits with concentration, memory, and balance have nearly all resolved since original injury. (S06.9X9S) Traumatic brain injury with loss of consciousness, sequela (HCC) (primary encounter diagnosis) (I60.9) SAH (subarachnoid hemorrhage) (HCC) ACTIVE PROBLEM LIST Nonallopathic Lesion of Cervical Region, Not Elsewhere Classified Osteoarthrosis, Unspecified Whether Generalized Or Localized, Other Specified Sites Lumbago Diverticulosis of Colon (Without Mention of Hemorrhage) Cervicalgia Nonspecific Elevation of Levels of Transaminase Or Lactic Acid Dehydrogenase (Ldh) Aortic Valve Disorders Dermatophytosis of Nail Pure Hyperglyceridemia Htn (Hypertension) Obesity, Unspecified Hemorrhage of Rectum and Anus Sdh (Subdural Hematoma) Subarachnoid Hemorrhage Following Injury, No Loss of Consciousness (Hcc) Facial Droop Dysarthria Fall Current Use of Correction Anticoagulation Atrial Fibrillation (Hcc) Qt Prolongation Bradycardia Urinary Retention PLAN: Referral for PT and TEST DEVELOPMENT ENGINEER. Pt can also pursue gym exercise for ambulation. Good balance today. Follow up as needed Case discussed with Dr. Jane with neuropsychology Office Visit on 08/11/22 CONSULT TO SPEECH THERAPY CONSULT TO PHYSICAL THERAPY SUBJECTIVE: Patient presents with: New Patient Evaluation History of Present Illness: Fall with light headedness prior. Date of TBI: 07/21/2022 Mechanism of Injury: Falls Site of Initial Impact: Back Neurosurgical Interventions: No Loss of Consciousness: No GCS in ER: 15 Initial Evaluation: is initial NIH was 4 for the left facial droop, right-sided ataxia, and dysarthria - Date: 07/21/2022 - Length of Hospitalization: 5 days Acuity of Hospitalization: RNF Acute Neuro-Imaging Findings: Yes Type of Neuro-imaging findings: Subarachnoid Hemorrhage and Subdural Hemorrhage - (Hemorrhage) Was on anticoagulation/antiplatelet therapy?: Yes Post Traumatic Amnesia: First Memory After: Ambulance/Helicoptor rides Seizures: No Medication Used for Symptom Management: none Discharge: Home Hospitalization Complications: none Current problematic symptoms: Memory not as sharp, but close - no treatments. Hearing/vision may impact as well. notes and patient doesn't Walking improving with minimal below baseline balance Hospital course: The patient is an 86-year-old male that presented to the hospital on 07/22 after a ground-level fall and was found to have a small subdural hemorrhage. 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 The patient has also been intermittently lightheaded over the past couple of weeks. He also has an extensive history of bradycardia. His initial NIH was 4 for the left facial droop, right-sided ataxia, and dysarthria. His Coumadin was reversed at [place]. The patient's blood pressure has been well controlled in the neuros NS ICU with minimal interventions. He has been noted to be orthostatic on ambulation. Cardiology and electrophysiology were consulted and did not recommend any acute interventions at this time. He can wear an event monitor and hold his Norvasc. The patient was restarted on DVT prophylaxis. He was also given Keppra for seizure prophylaxis. MRI revealed mild subarachnoid hemorrhage. Recent labs/Imaging related to complaint: MRI Brain IMPRESSION: Overall stable mild subarachnoid hemorrhage in the left interhemispheric fissure. No other acute intracranial findings. CT Brain 08/06/22 IMPRESSION: 1. Interval resolution of previously described left interhemispheric subarachnoid hemorrhage. 2. No CT evidence of acute cortical infarct. No current CT evidence of acute intracranial hemorrhage. 3. Chronic changes, as detailed above. Medications Reviewed atorvastatin (LIPITOR) 40 mg tablet 1 tablet by ORAL/FEEDING TUBE route daily at bedtime. levETIRAcetam (KEPPRA) 750 mg tablet 1 tablet by ORAL/FEEDING TUBE route twice daily. allopurinol (ZYLOPRIM) 100 mg tablet Take 100 mg by mouth once daily. furosemide (LASIX) 40 mg tablet Take 80 mg by mouth twice daily. cholecalciferol, vitamin D3, 250 mcg (10,000 unit) tab Take 1 tablet by mouth once daily. escitalopram oxalate (LEXAPRO) 20 mg tablet Take 20 mg by mouth once daily. potassium chloride (KCL-20 ORAL) Take 1 tablet by mouth once daily. magnesium oxide,aspartate,citr 400 mg magnesium cap Take 1 capsule by mouth once daily. losartan (COZAAR) 50 mg tablet Take 50 mg by mouth once daily. warfarin (COUMADIN) 4 mg tablet Take 4-6 mg by mouth daily as directed. 6 mg Mon - Fri 4 mg Sat AND Sun vi (more content not included)...[facility]12-19-2022 Instructions* Patient Instructions* Jose Corona MD - 08/11/2022 1:26 PM EST Referral to speech therapy, you can schedule with local therapists in [facility] to return to drive from brain injury perspective documented in [facility] History of Present illness Narrative* Jose Corona MD - 08/11/2022 1:14 PM EST IMPRESSION: George Mcclain is a 86 year old male presents for mild TBI with SAH/SDH after GLF at home. Discharged home without C. Initial deficits with concentration, memory, and balance have nearly all resolved since original injury. (S06.9X9S) Traumatic brain injury with loss of consciousness, sequela (HCC) (primary encounter diagnosis) (I60.9) SAH (subarachnoid hemorrhage) (HCC) ACTIVE PROBLEM LIST Nonallopathic Lesion of Cervical Region, Not Elsewhere Classified Osteoarthrosis, Unspecified Whether Generalized Or Localized, Other Specified Sites Lumbago Diverticulosis of Colon (Without Mention of Hemorrhage) Cervicalgia Nonspecific Elevation of Levels of Transaminase Or Lactic Acid Dehydrogenase (Ldh) Aortic Valve Disorders Dermatophytosis of Nail Pure Hyperglyceridemia Htn (Hypertension) Obesity, Unspecified Hemorrhage of Rectum and Anus Sdh (Subdural Hematoma) Subarachnoid Hemorrhage Following Injury, No Loss of Consciousness (Hcc) Facial Droop Dysarthria Fall Current Use of Enamel Buffer Anticoagulation Atrial Fibrillation (Hcc) Qt Prolongation Bradycardia Urinary Retention PLAN: Referral for PT and TEST DEVELOPMENT ENGINEER. Pt can also pursue gym exercise for ambulation. Good balance today. Follow up as needed Case discussed with Dr. Jane with neuropsychology Office Visit on 08/11/22 CONSULT TO SPEECH THERAPY CONSULT TO PHYSICAL THERAPY SUBJECTIVE: Patient presents with: New Patient Evaluation History of Present Illness: Fall with light headedness prior. Date of TBI: 07/21/2022 Mechanism of Injury: Falls Site of Initial Impact: Back Neurosurgical Interventions: No Loss of Consciousness: No GCS in ER: 15 Initial Evaluation: is initial NIH was 4 for the left facial droop, right-sided ataxia, and dysarthria - Date: 07/21/2022 - Length of Hospitalization: 5 days Acuity of Hospitalization: RNF Acute Neuro-Imaging Findings: Yes Type of Neuro-imaging findings: Subarachnoid Hemorrhage and Subdural Hemorrhage - (Hemorrhage) Was on anticoagulation/antiplatelet therapy?: Yes Post Traumatic Amnesia: First Memory After: Ambulance/Helicoptor rides Seizures: No Medication Used for Symptom Management: none Discharge: Home Hospitalization Complications: none Current problematic symptoms: Memory not as sharp, but close - no treatments. Hearing/vision may impact as well. notes and patient doesn't Walking improving with minimal below baseline balance Hospital course: The patient is an 86-year-old male that presented to the hospital on 07/22 after a ground-level fall and was found to have a small subdural hemorrhage. 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 The patient has also been intermittentlylightheaded over the past couple of weeks. He also has an extensive history of bradycardia. His initial NIH was 4 for the left facial droop, right-sided ataxia, and dysarthria. His Coumadin was reversed at [place]. The patient's blood pressure has been well controlled in the neuros NS ICU with minimal interventions. He has been noted to be orthostatic on ambulation. Cardiology and electrophysiology were consulted and did not recommend any acute interventions at this time. He can wear an event monitor and hold his Norvasc. The patient was restarted on DVT prophylaxis. He was also given Keppra for seizure prophylaxis. MRI revealed mild subarachnoid hemorrhage. Recent labs/Imaging related to complaint: MRI Brain IMPRESSION: Overall stable mild subarachnoid hemorrhage in the left interhemispheric fissure. No other acute intracranial findings. CT Brain 08/06/22 IMPRESSION: 1. Interval resolution of previously described left interhemispheric subarachnoid hemorrhage. 2. No CT evidence of acute cortical infarct. No current CT evidence of acute intracranial hemorrhage. 3. Chronic changes, as detailed above. Medications Reviewed atorvastatin (LIPITOR) 40 mg tablet 1 tablet by ORAL/FEEDING TUBE route daily at bedtime. levETIRAcetam (KEPPRA) 750 mg tablet 1 tablet by ORAL/FEEDING TUBE route twice daily. allopurinol (ZYLOPRIM) 100 mg tablet Take 100 mg by mouth once daily. furosemide (LASIX) 40 mg tablet Take 80 mg by mouth twice daily. cholecalciferol, vitamin D3, 250 mcg (10,000 unit) tab Take 1 tablet by mouth once daily. escitalopram oxalate (LEXAPRO) 20 mg tablet Take 20 mg by mouth once daily. potassium chloride (KCL-20 ORAL) Take 1 tablet by mouth once daily. magnesium oxide,aspartate,citr 400 mg magnesium cap Take 1 capsule by mouth once daily. losartan (COZAAR) 50 mg tablet Take 50 mg by mouth once daily. warfarin (COUMADIN) 4 mg tablet Take 4-6 mg by mouth daily as directed. 6 mg Mon - Fri 4 mg Sat & Sun vit C-E-zinc [id number] (ICAPS AREDS2) 250 mg-200 unit -12.5 mg-1 mg cap Take 1 capsule by mouth once daily. (Patient not taking: Reported on 08/11/2022) pravastatin 40 mg ORAL tablet Take 40 mg by mouth once daily. OARRS reviewed to confirm/clarify any controlled medications Allergies Reviewed PAST MEDICAL HISTORY: ACTIVE PROBLEM LIST Nonallopathic Lesion of Cervical Region, Not Elsewhere Classified Osteoarthrosis, Unspecified Whether Generalized Or Localized, Other Specified Sites Lumbago Diverticulosis of Colon (Without Mention of Hemorrhage) Cervicalgia Nonspecific Elevation of Levels of Transaminase Or Lactic Acid Dehydrogenase (Ldh) Aortic Valve Disorders Dermatophytosis of Nail Pure Hyperglyceridemia Htn (Hypertension) Obesity, Unspecified Hemorrhage of Rectum and Anus Sdh (Subdural Hematoma) Subarachnoid Hemorrhage Following Injury, No Loss of Consciousness (Hcc) Facial Droop Dysarthria Fall Current Use of Enamel Buffer Anticoagulation Atrial Fibrillation (Hcc) Qt Prolongation Bradycardia Urinary Retention PAST SURGICAL HISTORY Procedure Laterality Date CHOLECYSTECTOMY COLONOSCOPY FLX DX W/COLLJ SPEC WHEN PFRMD 05/2009 Colonoscopy COLONOSCOPY FLX DX W/COLLJ SPEC WHEN PFRMD 05/01/2011 Colonoscopy PAST SURGICAL HISTORY OF 04/2001 aortic valve replacement surgery- mechanical - [facility] - Dr. Esteban TONSILLECTOMY PRIMARY/SECONDARY <AGE 14 Tonsillectomy and adeniodectomy Social History Tobacco Use Smoking status: Former Smokeless tobacco: Never Substance Use Topics Alcohol use: Yes Alcohol/week: 5.0 standard drinks Types: 1 Glasses of Wine (5oz), 1 Cans of Beer (12oz) per week Drug use: Never family history includes Alzheimer's Disease in his father; No Known Problems in his daughter and son; None in his brother; Other in his mother. Review of systems as noted, reviewed, and documented on intake section. OBJECTIVE: Physical Exam: 08/11/22 1242 BP: 132/80 Pulse: 83 Resp: 16 Weight: 79.4 kg (175 lb) Height: 172.7 cm (5' 8) General: no acute distress. Awake, alert. Hard of hearing Cardiopulmonary: unlabored breathing. Appears well perfused Abdomen: non-distended, Lower Extremities: no edema, no calf tenderness. Skin: Visualized areas are warm, dry, no jaundice Mental Status: There are no obvious deficits of cognition on interview. Affect was normal. Oriented x4 Attention: intact Language:intact Cranial Nerves grossly intact Motor Exam: Strength: Strength Right Left Shoulder abductors 5/5 5/5 Elbow flexors 5/5 5/5 Elbow extensors 5/5 5/5 Wrist extensors 5/5 5/5 Registered Nurse Teacher strength 5/5 5/5 Hip flexors 5/5 4/5 Knee extensors 5/5 4/5 Knee flexors 5/5 4/5 Ankle dorsiflexors Ankle plantarflexors Sensation: Light touch was intact Gait: Unstressed observation of gait was normal with good balance on reciprocal gait During our face to face clinical encounter we discussed my concerns neurologically in terms of diagnosis, impact on health and activities of living, and addressed questions. I tried to reassure the patient and also address questions. I explained to the patient to call if any questions, to review res ults, and follow-up as instructed or as needed. Encounter discussed with neuropsychology in interdisciplinary team Patient verbalizes understanding and I have addressed concerns and questions at this visit Patient has my contacts, educational material provided, and my chart sign up. After visit summary discussed. I spent a total of 45 minutes on the date of the service which included preparing to see the patient, [id number] patient care, completing clinical documentation, performing a medically appropriate examination, counseling and educating the patient/family/caregiver, ordering medications, tests, or p rocedures and communicating results to the patient/family/caregiver. Jose Corona MD Physical Medicine & Rehab [facility] documented in this encounter[facility] NoteHNO ID: [id number] Author: Sweta Jenkins APRN.CARE MANAGEMENT COORDINATOR Service: ? Author Type: Nurse Practitioner Type: Progress Notes Filed: 08/06/2022 3:22 PM Note Text: NEUROSURGERY FOLLOW UP OFFICE NOTE Sweta Jenkins APRN.CNP Date of visit: August 06, 2022 Patient Name: Mr.Robert Mcclain Date of : 1935 Current Age: [age] year old Sex: male MRN/E# [id number] Last Office Visit: Hospital follow-up Chief Complaint: Patient presents with: Established Patient: Hospital discharge The patient presents for a follow up with imaging (CT B) for evaluation. This is an 86-year-old male with a PMHx of A. fib, AV heart valve replacement, HLD, CAD, CABG who was seen in consult on 07/22/2022 at [facility] after being transferred from an outside hospital. He had been seen in an outside ED with strokelike symptoms after a fall. The patient reported that he was getting up from his chair when he felt dizzy and fell striking his head. After the fall he developed a left facial droop and slurred speech. Work-up was completed and showed a small subarachnoid hemorrhage and subdural hematoma without significant mass-effect. CTA was completed and was negative. Once transferred he was evaluated and imaging was reviewed. This showed a stable small intracranial bleed along the left side of the falx. Neurologically he was intact on exam without focal deficit. Blood thinning medications were placed on hold and he was given a short course of Keppra for seizure prophylaxis. Repeat imaging remained stable and he was cleared to resume DVT prophylaxis given his history of aortic valve and risk for thromboembolic event. He was advised that he may resume his normal anticoagulation medications on 07/29/2022. Recommendation was to follow-up in [address] brain prompting his visit today. Since discharge he states he is overall doing well. He denies any significant headache, visual changes or seizure activity. He and his both feel he has episodes of mild speech slurring but this is much improved. He feels as if his gait is not back to normal so he is utilizing a walker for assist. Since discharge he has been seen by his construction plumber who has adjusted his medications as it was thought that bradycardia was the cause of his recent fall. He resumed Coumadin on 07/29/2022 as instructed. He presents for image review, evaluation and plan of care. Smoker: Former Diabetic: No Anticoagulants / Antiplatelets: Coumadin Occupation: Retired Symptoms: Mild headaches, mild speech slurring at times, gait imbalance. PREVIOUS CONSERVATIVE TREATMENTS: None PREVIOUS SURGERY: None PAIN EVALUATION 08/06/2022 1401 Pain Level: 2 PAST MEDICAL HISTORY Diagnosis Date Aortic valve disorders Cervicalgia Coronary atherosclerosis Dermatophytosis of nail Diverticulosis of colon (without mention of hemorrhage) Essential hypertension, benign Hemorrhage of rectum and anus Lesion of plantar nerve Lumbago Nonallopathic lesion of cervical region, not elsewhere classified Nonspecific elevation of levels of transaminase or lactic acid dehydrogenase (LDH) Obesity, unspecified Osteoarthrosis, unspecified whether generalized or localized, other specified sites Pure hyperglyceridemia Unspecified hyperplasia of prostate PAST SURGICAL HISTORY Procedure Laterality Date CHOLECYSTECTOMY COLONOSCOPY FLX DX W/COLLJ SPEC WHEN PFRMD 05/2009 Colonoscopy COLONOSCOPY FLX DX W/COLLJ SPEC WHEN PFRMD 05/01/2011 Colonoscopy PAST SURGICAL HISTORY OF 04/2001 aortic valve replacement surgery- mechanical - [facility] - Dr. Esteban TONSILLECTOMY PRIMARY/SECONDARY Tonsillectomy and adeniodectomy FAMILY HISTORY Problem Relation Age of Onset Alzheimer's Disease Father other (Other) Mother possible brain tumor None Brother No Known Problems Son No Known Problems Daughter ALLERGIES No Known Allergies Current Outpatient Medications Medication Sig Dispense Refill atorvastatin (LIPITOR) 40 mg tablet 1 tablet by ORAL/FEEDING TUBE route daily at bedtime. 30 tablet 0 levETIRAcetam (KEPPRA) 750 mg tablet 1 tablet by ORAL/FEEDING TUBE route twice daily. 60 tablet 0 allopurinol (ZYLOPRIM) 100 mg tablet Take 100 mg by mouth once daily. furosemide (LASIX) 40 mg tablet Take 80 mg by mouth twice daily. cholecalciferol, vitamin D3, 250 mcg (10,000 unit) tab Take 1 tablet by mouth once daily. vit C-E-zinc lr-yasr-kkj-zeax (ICAPS AREDS2) 250 mg-200 unit -12.5 mg-1 mg cap Take 1 capsule by mouth once daily. escitalopram oxalate (LEXAPRO) 20 mg tablet Take 20 mg by mouth once daily. potassium chloride (KCL-20 ORAL) Take 1 tablet by mouth once daily. magnesium oxide,aspartate,citr 400 mg magnesium cap Take 1 capsule by mouth once daily. losartan (COZAAR) 50 mg tablet Take 50 mg by mouth once daily. pravastatin 40 mg ORAL tablet Take 40 mg by mouth once daily. warfarin (COUMADIN) 4 mg tablet Take 4-6 mg by mouth daily as (more content not included)...[facility]12-02-2022 Miscellaneous Notes* Telephone Encounter - Angela Renato - 07/25/2022 11:09 AM EST Scheduled. Angela Renato * Telephone Encounter - Beatrice Nicholson APRN.CNP - 07/24/2022 1:57 PM EST Patient was noted to have atrial fibrillation with slow ventricular response during hospitalization, he is being discharged with a 14-day event monitor. He will need to be a new patient with Dr. Galloway in 4-6 weeks to review the results, may need a pacemaker at some point. He is being discharged from the hospital today. Thank you. Beatrice Nicholson APRN.VANDANA documented in this encounterMer[facility]12-01-[facility]22 NoteHNO ID: [id number] Author: Kaden Lamar Coiler Service: Cardiovascular Testing Author Type: Coiler Type: Progress Notes Filed: 07/24/2022 4:35 PM Note Text: 14 day event monitor taught and applied. Patient verbalized understanding of monitor and return procedure. Patient's spouse present for education as well. RN aware of placement prior to discharge.[facility]12-01-2022 NoteHNO ID: [id number] Author: Ryanne Avilez RN Service: Care Management Author Type: Registered Nurse Type: Care Mgt Progress Note Filed: 07/24/2022 4:30 PM Note Text: CARE MANAGEMENT DISCHARGE NOTE SERVICE DATE: 07/24/2022 SERVICE TIME: 4:28 PM LOS: 3 days Admission Date: 07/21/2022 DISCHARGE ARRANGEMENT (list agency and phone number) Discharge Arrangement: Home with Self Care Provider Name: Dr. Bashir Cortez CAREGIVER ASSESSMENT: Caregiver is ready, willing and able to meet the patient's needs as recommended by the inter-professional team:: No Caregiver needed Patient's transition needs and plan for meeting these needs: home with self care HANDOFF COMMUNICATION: Handoff to: Primary Care Physician Primary Care Physician Name/Phone: Dr. Bashir Cortez [phone] TRANSPORTATION ARRANGEMENTS: Transportation Arrangements: Car ADDITIONAL CONTACT RESOURCES: n/a Pt will dc home today with a 2-week event monitor. He will follow up with Dr. Galloway in 4-6 weeks. Will also follow up with his PCP. SIGNATURE: Ryanne Avilez RN PATIENT NAME: George Mcclain DATE: July 24, 2022 TIME: 4:28 PM PAGER/CONTACT #: [phone] [facility] 07-24-2022 NoteHNO ID: [id number] Author: Beatrice Nicholson APRN.CARE MANAGEMENT COORDINATOR Service: Electrophysiology Author Type: Nurse Practitioner Type: Plan of Care Filed: 07/24/2022 1:56 PM Note Text: Telemetry reviewed: Atrial fibrillation with slow ventricular response rates, in the mid 30s-60s, most bradycardia occurring overnight. We will order a 2-week event monitor to be applied, patient with active discharge order, would like monitor to be applied prior to leaving the hospital, informed bedside RN via Vox[employer] chat. We will arrange outpatient follow-up with Dr. Galloway 4-6 weeks. Beatrice Nicholson APRN.[facility]12-01-2022 NoteHNO ID: [id number] Author: Gurinder Corona APRN.VANDANA Service: Neurosurgery Author Type: Nurse Practitioner Type: Plan of Care Filed: 07/24/2022 1:42 PM Note Text: Neurosurgery Plan of Care Chart reviewed. Ok for discharge from neurosurgery perspective. May resume warfarin on 07/29. Card given. 2 week follow up with repeat CTH requested. Dicussed all above with patient and . Gurinder Corona APRN.[facility]12-01-2022 NoteHNO ID: [id number] Author: Ryanne Avilez RN Service: Care Management Author Type: Registered Nurse Type: Care Mgt Progress Note Filed: 07/24/2022 9:49 AM Note Text: CARE MANAGEMENT PROGRESS NOTE SERVICE DATE: 07/24/2022 SERVICE TIME: 9:49 AM LOS: 3 days IMM Follow Up Copy Given: Yes Copy given to:: Patient Method: In Person The patient gave verbal understanding of IMM reminder. SIGNATURE: Ryanne Aivlez RN PATIENT NAME: George Mcclain DATE: July 24, 2022 TIME: 9:48 AM PAGER/CONTACT #: [phone] Valley Hospital 07-23-2022 NoteHNO ID: [id number] Author: Gurinder Corona APRN.CARE MANAGEMENT COORDINATOR Service: Neurosurgery Author Type: Nurse Practitioner Type: Progress Notes Filed: 07/23/2022 3:10 PM Note Text: Neurosurgery Progress Note SERVICE DATE: 07/23/2022 SUBJECTIVE: NAEON. Denies MOORE, vision changes, numbness/tingling anywhere. OBJECTIVE: Vitals: Temp (24hrs), Av.4 ?C (97.6 ?F), Min:36.1 ?C (97 ?F), Max:36.7 ?C (98.1 ?F) BP 111/55 Pulse (!) 52 Temp 36.7 ?C (98.1 ?F) (Temporal) Resp 14 Ht 172.7 cm (5' 8) Wt 78.5 kg (173 lb 1 oz) SpO2 96% BMI 26.31 kg/m? O2 Therapy: Room Air IANDO: Date 07/22/22 07 - 07/23/22 0659 07/23/22 0700 - 07/24/22 0659 Shift 5595-2019 7071-7467 3950-9658 24 Hour Total 3162-5440 8486-2699 8962-2398 24 Hour Total INTAKE PO 250 470 720 500 500 PO 250 470 720 500 500 IV 500 500 Volume (mL) (NaCl 0.9% iv infusion) 500 500 Shift Total 091 849 9235 500 500 OUTPUT Urine 900 549 741 7864 350 350 Void (ml) 400 100 200 700 350 350 Straight cath (ml) 350 350 Amount Voided Before Bladder Scan 150 100 75 325 # of BMs Number of BMs 0 x 0 x 0 x 1 x 1 x Shift Total 900 649 256 1313 350 350 Weight (kg) 78.9 78.9 78.9 78.9 78.5 78.5 78.5 78.5 Medications: Current Facility-Administered Medications Medication Dose Route Frequency heparin 5,000 Units injection 5,000 Units SUBCUTANEOUS q 8 H mupirocin 2 % 0.5 g nasal ointment (BACTROBAN) 0.5 g NASAL BID allopurinol 100 mg tab(s) (ZYLOPRIM) 100 mg ORAL DAILY atorvastatin 40 mg tab(s) (LIPITOR) 40 mg ORAL/FEEDING TUBE AT BEDTIME bisacodyl 10 mg suppository (DULCOLAX) 10 mg RECTAL DAILY PRN NaCl 0.9% iv flush bag 20 mL INTRAVENOUS PRN sodium chloride 0.9 % (flush) 3-5 mL (BD POSIFLUSH) 3-5 mL INTRAVENOUS q 12 H acetaminophen 650 mg tab(s) (TYLENOL) 650 mg ORAL/FEEDING TUBE q 4 H PRN Or acetaminophen 650 mg CUP (TYLENOL) 650 mg ORAL/FEEDING TUBE q 4 H PRN Or acetaminophen 650 mg suppository (TYLENOL) 650 mg RECTAL q 4 H PRN levETIRAcetam 750 mg tab(s) (KEPPRA) 750 mg ORAL/FEEDING TUBE BID potassium chloride ER 20-40 mEq tab(s) (K-DUR, KLOR-CON) 20-40 mEq ORAL/FEEDING TUBE PRN Or potassium chloride iv piggyback 20 mEq/100 mL 20 mEq INTRAVENOUS PRN magnesium sulfate iv piggyback in sterile water 2 g 50 mL 2 g INTRAVENOUS PRN phosphorus 500 mg tab(s) (K PHOS NEUTRAL) 500 mg ORAL/FEEDING TUBE PRN(NO DISPENSE) calcium gluconate 4 g in NaCl 0.9% 250 mL 4 g INTRAVENOUS PRN sodium chloride 0.9 % (flush) 2-10 mL (BD POSIFLUSH) 2-10 mL INTRAVENOUS DIRECTED PRN Labs: Recent Labs 07/23/22 0210 07/22/22 0223 NA 139 141 K 4.1 3.9 CHLOR 105 106* CO2 27 26 BUN 17 15 CREAT 0.85 0.83 GLUC 104* 93 ANION 7* 9 CA 9.1 8.8 MG 2.0 1.8 P 3.1 3.4 WBC 11.03* 9.97 HB 12.8* 12.7* HCT 38.2* 38.3* PLT 187 197 INR -- 1.2 Imaging: MRI BRAIN WO 07/22/2022 2:34 PM - Radiology, [facility] In Impression IMPRESSION: Overall stable mild subarachnoid hemorrhage in the left interhemispheric fissure. No other acute intracranial findings. Exam: GENERAL: No distress, Alert NEURO: AAOx3, speech clear, fluent. Strength 5/5 all extremities. No drift. PERRL EOMI. HEENT: normocephalic, atraumatic LUNGS: Unlabored breathing CARDIAC: Regular rate and rhythm as above ABDOMEN: Soft, non-tender, non-distended EXTREMITIES: REEVES, No deformities, No edema SKIN: Skin color, texture, turgor normal, No rashes or lesions ASSESSMENT AND PLAN: Active Hospital Problems Diagnosis Date Noted SDH (subdural hematoma) 07/21/2022 Urinary retention 07/23/2022 Assessment AND Plan Note: Difficult urination since hospital admission. Does not suffer from retention at home. Has been requiring straight cath in ICU. Takes lasix 80 mg BID at home which patient states helps him pee. - Currently on hold for BP PLAN: - Bladder scan q4h and post void residual - Straight cath PRN Atrial fibrillation (HCC) 07/22/2022 QT prolongation 07/22/2022 Overview Note: EKG this AM showed QTC interval of 522. Unclear if pt has history of this. 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 Ok to start SQH for DVT ppx as today is 48hrs from stability - Cardiology c/s for PPM consideration - Keppra x7d for seizure ppx - OAC to resume 7 days post-stability (07/29) Portions of text from this note were copied. All relevant information was reviewed and updated accordingly on 07/23/2022 SIGNATURE: Gurinder Corona, (more content not included)...[facility]11-30-2022 NoteHNO ID: [id number] Author: GERMÁN Dixon Service: Care Management Author Type: Radar Engineering Teacher Type: Care Mgt Progress Note Filed: 07/23/2022 2:37 PM Note Text: CARE MANAGEMENT PROGRESS NOTE SERVICE DATE: 07/23/2022 SERVICE TIME: 2:36 PM LOS: 2 days Stroke depression screen SW attempted to meet with pt at bedside, MD at bedside talking with pt and family. SW to follow up at a later time. SIGNATURE: GERMÁN Dixon PATIENT NAME: George Mcclain DATE: July 23, 2022 TIME: 2:36 PM PAGER/CONTACT #: [phone] NoteHNO ID: [id number] Author: Gurinder Kraft DO Service: Neurology ICU Author Type: Resident Type: Progress Notes Filed: 07/23/2022 11:31 AM Note Text: Attestation signed by Tha Nickerson MD at 07/23/2022 3:21 PM STAFF COORDINATION OF CRITICAL CARE I have reviewed the progress note obtained and documented by the resident, and I personally participated in the rivera components. I have discussed the case and management of the patient's care. The following comments revise or confirm relevant rivera components of the note. I have repeated the examination and confirm the findings except as documented. PATIENT PROBLEMS I REVIEWED, REVISED AND/OR INITIATED: The care of this patient required my full attention and direct personal management of: Principal Problem: SDH (subdural hematoma) Active Problems: HTN (hypertension) Subarachnoid hemorrhage following injury, no loss of consciousness (HCC) Facial droop Dysarthria Fall Current use of half-way anticoagulation Atrial fibrillation (HCC) QT prolongation Bradycardia Urinary retention Resolved Problems: * No resolved hospital problems. * ==== [facility] Staff Physician note of personal involvement in Care The patient is critically ill because of imminent risk of acute brain damage and continues to require intensive support and observation. This patient has a high probability of sudden, clinically significant deterioration, which requires the highest level of physician preparedness to intervene urgently. I managed/supervized life or organ supporting interventions that required frequent physician assessment. I devoted my full attention to the direct care of this patient for the amount of time indicated below. Time I spent with family or surrogate(s) is included only if the patient was incapable of providing the necessary information or participating in medical decision making. Time devoted to teaching or to any procedures I billed separately is not included. CRITICAL CARE: I personally spent 35 minutes of time involved in the care of this patient. 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 Plan of care discussed with: Provider, RN, Patient. Tha Nickerson MD Staff, Neurointensive Care Neurological [place] Date of Service: 07/23/2022 Time of Service: 3:18 PM This is an electronically created document. If printed, please do not remove from the chart or modify printed copy. SERVICE DATE: 07/23/2022 SERVICE TIME: 11:30 AM PROGRESS NOTE NEURO ICU STROKE (HEMORRHAGIC) SERVICE DATE: 07/23/2022 SERVICE TIME: 8:50 AM Stroke Mechanism: Initial NIHSS Score: 2 METRICS: Hemorrhagic Stroke Type?: Intracranial Hemorrhage Ed Coma Scale Totals (Calculated): 15 Total ICH Score (0-6): 1 Date Patient Last Known Well: 07/21/22 Date of Patient Arrival at THIS Facility: 07/21/22 Time of Patient Arrival at THIS Facility: 2058 Premorbid Modified [place] Score: 0=0 - No symptoms at all Subjective MEDICATIONS: Current Facility-Administered Medications Medication Dose Route Frequency - bisacodyl 10 mg suppository (DULCOLAX) 10 mg RECTAL DAILY PRN - NaCl 0.9% iv flush bag 20 mL INTRAVENOUS PRN - sodium chloride 0.9 % (flush) 3-5 mL (BD POSIFLUSH) 3-5 mL INTRAVENOUS q 12 H - acetaminophen 650 mg tab(s) (TYLENOL) 650 mg ORAL/FEEDING TUBE q 4 H PRN Or - acetaminophen 650 mg CUP (TYLENOL) 650 mg ORAL/FEEDING TUBE q 4 H PRN Or - acetaminophen 650 mg suppository (TYLENOL) 650 mg RECTAL q 4 H PRN - levETIRAcetam 750 mg tab(s) (KEPPRA) 750 mg ORAL/FEEDING TUBE BID - hydrALAZINE 10-20 mg injection (APRESOLINE) 10-20 mg INTRAVENOUS PRN - potassium chloride ER 20-40 mEq tab(s) (K-DUR, KLOR-CON) 20-40 mEq ORAL/FEEDING TUBE PRN Or - potassium chloride iv piggyback 20 mEq/100 mL 20 mEq INTRAVENOUS PRN - magnesium sulfate iv piggyback in sterile water 2 g 50 mL 2 g INTRAVENOUS PRN - phosphorus 500 mg tab(s) (K PHOS NEUTRAL) 500 mg ORAL/FEEDING TUBE PRN(NO DISPENSE) - calcium gluconate 4 g in NaCl 0.9% 250 mL 4 g INTRAVENOUS PRN - sodium chloride 0.9 % (flush) 2-10 mL (BD POSIFLUSH) 2-10 mL INTRAVENOUS DIRECTED PRN - atorvastatin 40 mg tab(s) (LIPITOR) 40 mg (more content not included)...[facility]11-30-2022 NoteHNO ID: [id number] Author: Wendy Melgar RN Service: Care Management Author Type: Registered Nurse Type: Care Mgt Progress Note Filed: 07/23/2022 11:17 AM Note Text: CARE MANAGEMENT PROGRESS NOTE SERVICE DATE: 07/23/2022 SERVICE TIME: 1114 LOS: 2 days Needs Prior to Discharge: To Be Determined;OT/PT Evaluation;Discharge Prescriptions Chart reviewed, patient admitted s/p fall with SAH and SDH. Pt. Lives with spouse at home and was independent prior to admission, endorses balance difficulties, does not use an assistive device. OT consulted and are recommending home at d/c. Pt. Consult is pending. Discharge disposition pending. Anticipate d/c home with HHC vs Out Patient Therapy vs self care. Will continue to follow for PT recommendations. SIGNATURE: Wendy Melgar RN PATIENT NAME: George Mcclain DATE: July 23, 2022 TIME: 11:14 AM PAGER/CONTACT #: [phone]22 NoteHNO ID: [id number] Author: Lizbet Orta MD Service: General Surgery Author Type: Physician Type: Progress Notes Filed: 07/23/2022 11:43 AM Note Text: Trauma Surgery Progress Note SERVICE DATE: 07/23/2022 Trauma Service Pager: For questions or concerns Mon-Fri 6a-5p please page [phone]. After 5pm and on Weekends and Holidays, please page [phone] if in ICU or [phone] if on RNF. SUBJECTIVE: NAEON. Sleeping comfortably without issues. OBJECTIVE: Vitals: Temp (24hrs), Av.5 ?C (97.7 ?F), Min:36.1 ?C (97 ?F), Max:36.7 ?C (98.1 ?F) BP 147/62 Pulse (!) 44 Temp 36.7 ?C (98.1 ?F) (Temporal) Resp 19 Ht 172.7 cm (5' 8) Wt 78.9 kg (174 lb) SpO2 98% BMI 26.46 kg/m? O2 Therapy: BiLevel Positive Airway Pressure IANDO: Date 07/22/22699 - 07/23/2265807/23/22699 - 07/24/22 0659 Shift 8418-6735 9486-1573 8538-2715 24 Hour Total 6283-7081 0343-5760 0852-3721 24 Hour Total INTAKE PO 250 470 720 PO 250 470 720 IV 500 500 Volume (mL) (NaCl 0.9% iv infusion) 500 500 Shift Total 364 639 1636 OUTPUT Urine 900 762 278 3724 Void (ml) 400 100 200 700 Straight cath (ml) 350 350 Amount Voided Before Bladder Scan 150 100 75 325 # of BMs Number of BMs 0 x 0 x 0 x Shift Total 900 727 269 1976 Weight (kg) 78.9 78.9 78.9 78.9 78.9 78.9 78.9 78.9 MEDICATIONS Current Facility-Administered Medications Medication Dose Route Frequency heparin 5,000 Units injection 5,000 Units SUBCUTANEOUS q 8 H atorvastatin 40 mg tab(s) (LIPITOR) 40 mg ORAL/FEEDING TUBE AT BEDTIME bisacodyl 10 mg suppository (DULCOLAX) 10 mg RECTAL DAILY PRN NaCl 0.9% iv flush bag 20 mL INTRAVENOUS PRN sodium chloride 0.9 % (flush) 3-5 mL (BD POSIFLUSH) 3-5 mL INTRAVENOUS q 12 H acetaminophen 650 mg tab(s) (TYLENOL) 650 mg ORAL/FEEDING TUBE q 4 H PRN Or acetaminophen 650 mg CUP (TYLENOL) 650 mg ORAL/FEEDING TUBE q 4 H PRN Or acetaminophen 650 mg suppository (TYLENOL) 650 mg RECTAL q 4 H PRN levETIRAcetam 750 mg tab(s) (KEPPRA) 750 mg ORAL/FEEDING TUBE BID hydrALAZINE 10-20 mg injection (APRESOLINE) 10-20 mg INTRAVENOUS PRN potassium chloride ER 20-40 mEq tab(s) (K-DUR, KLOR-CON) 20-40 mEq ORAL/FEEDING TUBE PRN Or potassium chloride iv piggyback 20 mEq/100 mL 20 mEq INTRAVENOUS PRN magnesium sulfate iv piggyback in sterile water 2 g 50 mL 2 g INTRAVENOUS PRN phosphorus 500 mg tab(s) (K PHOS NEUTRAL) 500 mg ORAL/FEEDING TUBE PRN(NO DISPENSE) calcium gluconate 4 g in NaCl 0.9% 250 mL 4 g INTRAVENOUS PRN sodium chloride 0.9 % (flush) 2-10 mL (BD POSIFLUSH) 2-10 mL INTRAVENOUS DIRECTED PRN Labs: Recent Labs 07/23/2220907/22/22222 NA 139 141 K 4.1 3.9 CHLOR 105 106* CO2 27 26 BUN 17 15 CREAT 0.85 0.83 GLUC 104* 93 ANION 7* 9 CA 9.1 8.8 MG 2.0 1.8 P 3.1 3.4 WBC 11.03* 9.97 HB 12.8* 12.7* HCT 38.2* 38.3* PLT 187 197 INR -- 1.2 PHYSICAL EXAM: Genl: Appears age appropriate. No acute distress. Resting comfortably. Head/Face: Normocephalic. Eyes: EOMI. Sclera not icteric, not injected Neck: No mid-line masses. C-spine non-tender. Resp: Lung sounds are clear bilat. No wheezes. No rales. Breathing is non-labored CVS: RRR as above; 2+ pulses at RA, DP, PT bilat. GI: Abdomen is soft, non-tender, not distended. Bowel sounds normoactive. No peritonitis. MSK: Extremities without clubbing, cyanosis, edema. Normal ROM x 4. Skin: Warm and dry. Not jaundiced. Neuro: AANDOx3. Strength and sensation normal. REEVES. GCS15. Psych: Normal mood. Normal affect. Appropriate insight into current situation. ASSESSMENT AND PLAN: 86 year old male s/p fall while standing up with suspected stroke as etiology Imaging performed: CT H/N, CXR, CTA H/N (07/22) MRI with stable SAH (07/23) Traumatic Injuries: SAH and SDH Operations/Procedures: 1. None Care Plan: Fall, possible stroke -MRI without findings of stroke -Further work up per neuro ICU Intracranial hemorrhage -Likely due to fall. Less likely due to aneurysm as CTA H/N was negative -Neurosurgery consulted -Kera -Neuro checks -Planning non-operative management at this time -restart Ppx and AC per neurosurgery recommendations -Can discuss who will manage patient given no findings of stroke. PPX: DVT: SCDs, holding chemoprophylaxis Ulcer: Not indicated Vit D level if > 65 yo: Yes Consulted Services: Trauma Neurosurgery Dispo Planning: PT/OT recs when appropriate. Case management following. Follow Up Needs: TBD Staff Trauma Surgeon: Dr. Orta SIGNATURE: Camron Nam DO PATIENT NAME: George Mcclain DATE: July 23, 2022 TIME: 8:51 AM Pager: see below Trauma Service Pager: For questions or concerns Mon-Thu 6a-5p please page [phone]. After 5pm and on Weekends and Holidays, please page [phone] if in ICU or [phone] if on RNF. Portions of text from this note were copied as some of the information may not have changed. All relevant informati (more content not included)...[facility]11-30-2022 NoteHNO ID: [id number] Author: Samy Che MD Service: Cardiovascular Medicine Author Type: Physician Type: Progress Notes Filed: 07/23/2022 11:44 AM Note Text: CARDIOVASCULAR INTENSIVE CARE UNIT PROGRESS NOTE Patient Name: George Mcclain Date of Service: July 23, 2022 Reason For Admission: Atrial fibrillation LOS:2 Subjective HPI 86 year old male with past medical history of A. 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 The fall happened after waking up from a nap on chair, felt dizzy stumbled and fell to the ground hitting his head on a table that was witnessed by his . She mentioned that he had a left facial droop with a left-sided weakness and slurred speech at that time. In the ED, he was noted to have left facial droop right ataxia and dysarthria along with nystagmus. Radiological work-up with concerns for an acute posterior ischemic stroke, revealed a questionable small subdural hemorrhage along the left side of the falx. Patient was transferred to [facility], concern was that he was having an acute posterior ischemic stroke which caused him to fall. CTH was completed revealing a questionable small subdural hemorrhage along the left side of the falx. CTA was unrevealing for high grade stenosis or LVO. He would not be a candidate for thrombolytic given concern for bleeding in his head and he did not have an LVO for EVT. His INR was 2.8 and he was given kcentra and vit. K for reversal of his warfarin. CVICU was consulted for bradycardia and A. fib management. INTERVAL EVENTS No acute events overnight. Patient was sitting comfortably on couch alert and oriented. He denies any chest pain, shortness of breath, dizziness or palpitations. He mentions he had a good sleep with CPAP yesterday. He has no further complaints and feels well overall. Objective OBJECTIVE 07/23/22 0800 07/23/22 0900 07/23/22 0923 07/23/22 1000 BP: 140/80 120/61 (!) 104/47 Pulse: (!) 53 (!) 48 (!) 50 Resp: 16 13 20 Temp: TempSrc: SpO2: 97% 92% 88% Weight: 78.5 kg (173 lb 1 oz) Height: Body mass index is 26.31 kg/m?. Intake/Output Summary (Last 24 hours) at 07/23/2022 1123 Last data filed at 07/23/2022 0400 Gross per 24 hour Intake 1220 ml Output 1125 ml Net 95 ml LABORATORY: CBC: Recent Labs 07/23/22 0210 07/22/22222 WBC 11.03* 9.97 HB 12.8* 12.7* HCT 38.2* 38.3* PLT 187 197 MCV 92.7 93.6 RDWCV 14.1 14.3 NEUTP 67.0 66.1 ABSNEUT 7.39 6.59 LYMPHP 20.5 21.8 MONOP 9.9 9.7 COAG: Recent Labs 07/22/22222 APTT 29.4 INR 1.2 CMP: Recent Labs 07/23/2220907/22/22222 GLUC 104* 93 NA 139 141 K 4.1 3.9 CHLOR 105 106* CO2 27 26 ANION 7* 9 BUN 17 15 CREAT 0.85 0.83 URINALYSIS:No results for input(s): PH, SPGR, UGLUC, UBILI, UKET, UHB, UPROT, UROBIL, UWBC, SSA in the last 168 hours. Invalid input(s): NITR VENOUS BLOOD GAS:No results for input(s): VPH, VPC2, VPO2C, VBE, HCO3, LACTATE in the last 168 hours. CARDIAC:No results for input(s): CKTEST, CKMB, CKMBP, TROPT, PBNP in the last 168 hours. LV Ejection Fraction (%) Date Value 07/22/2022 58 Hemoglobin A1C (%) Date Value 07/22/2022 6.5 Physical Exam HENT: Head: Normocephalic. Nose: Nose normal. Mouth/Throat: Mouth: Mucous membranes are moist. Eyes: Extraocular Movements: Extraocular movements intact. Pupils: Pupils are equal, round, and reactive to light. Cardiovascular: Rate and Rhythm: Bradycardia present. Rhythm irregular. Heart sounds: Murmur heard. Comments: Mechanical S2 Pulmonary: Breath sounds: No wheezing. Abdominal: Palpations: Abdomen is soft. Musculoskeletal: Right lower leg: No edema. Left lower leg: No edema. Skin: General: Skin is warm. Capillary Refill: Capillary refill takes less than 2 seconds. Neurological: Mental Status: He is alert and oriented to person, place, and time. Psychiatric: Mood and Affect: Mood normal. MEDICATIONS: IV infusions: Scheduled medications:heparin, 5,000 Units, q 8 H mupirocin, 0.5 g, BID allopurinol, 100 mg, DAILY atorvastatin, 40 mg, AT BEDTIME sodium chloride 0.9 % (flush), 3-5 mL, q 12 H levETIRAcetam, 750 mg, BID PRN:bisacodyl, 10 mg, DAILY PRN NaCl 0.9%, 20 mL, PRN acetaminophen, 650 mg, q 4 H PRN Or acetaminophen, 650 mg, q 4 H PRN Or acetaminophen, 650 mg, q 4 H PRN potassium chloride ER, 20-40 mEq, PRN Or potassium chloride, 20 mEq, PRN magnesium sulfate, 2 g, PRN phosphorus, 500 mg, PRN(NO DISPENSE) calcium gluconate iv piggyback in NaCl 0.9% 250 mL, 4 g, PRN sodium chloride 0.9 % (flush), 2-10 mL, DIRECTED PRN ASSESSMENT George Mcclain is a 86 year old male who presents after a fall with SDH and suspected ischemic stroke. CVICU was consulted for bradycardia and permanent atrial fibrillat (more content not included)...[facility]11-29-2022 NoteHNO ID: [id number] Author: Yan Rojas APRN.CARE MANAGEMENT COORDINATOR Service: Neurosurgery Author Type: Nurse Practitioner Type: Plan of Care Filed: 07/22/2022 4:26 PM Note Text: Neurosurgery Plan of Care: The patient has current stable scan today DVT ppx may be started tomorrow morning. In regard to the patients aortic valve and his risk of thromboembolic event we recommend restarting anticoagulation in one week after his stable scan (07/29/22). Discussed with Cardiology and Dr. Abebe. Yan Rojas APRN.[facility] Neurosurgery Pager: [phone] Neurosurgery Pager: [phone] July 22, 2022 4:20 [facility] NoteHNO ID: [id number] Author: George Galloway MD Service: Electrophysiology Author Type: Physician Type: Progress Notes Filed: 07/22/2022 3:34 PM Note Text: [facility] Electrophysiology (EP) EP Attending CVICU team completed a consult and asked for EP input. Mr. Mcclain has permanent atrial fibrillation, followed by Dr. Mojica in [place]. Mr. Mcclain experienced multiple falls recently, per CVICU resident these occurred with change in posture, such as standing from seated or supine positions. This raises concern for orthostatic intolerance, would be very unusual for bradycardia to cause the episodes only with change in posture, so I am suspecting the issue is more of a blood pressure issue rather than his heart rate or rhythm. Having said that, he is certainly bradycardic, with slow ventricular response rates to the ongoing permanent atrial fibrillation. 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 The slow ventricular response to the atrial fibrillation is a function of the rate of conduction across the AV node, so in light of the evidence for conduction system disease it is not surprising that he would have slow AV conduction during atrial fibrillation. Right now while awake sitting in a chair he is having ventricular response rates in the range of 30s - 50s bpm, with good blood pressure. I agree with Dr. Che (CVICU attending) that cardiac pacing, either temporary transvenous or permanent pacemaker, is not indicated at this point. Agree that AV sondra blocking medications should be avoided. I also agree with Dr. Che's recommendation for outpatient cardiac monitoring. EP will follow along during this hospitalization and review telemetry. If he demonstrates severe symptomatic bradycardia a pacemaker might be indicated. For now we can see if the heart rates improve with recovery from his acute cranial event. George Galloway MD July 22, 2022 3:33 PM EP group pager [phone]22 NoteHNO ID: [id number] Author: Shanti Dia (Rn Examiner) Service: Pharmacy Author Type: Garden Equipment Mechanic Type: Plan of Care Filed: 07/22/2022 3:55 PM Note Text: PHARMACY MEDICATION REVIEW Patient Name: George Mcclain : 1935 The following medications were updated within the OFFICE MANAGER medication list: Medications ADDED to OFFICE MANAGER medication list allopurinol (ZYLOPRIM) 100 mg tablet Take 100 mg by mouth once daily. furosemide (LASIX) 40 mg tablet Take 80 mg by mouth twice daily. cholecalciferol, vitamin D3, 250 mcg (10,000 unit) tab Take 1 tablet by mouth once daily. vit C-E-zinc ih-xexi-ese-zeax (ICAPS AREDS2) 250 mg-200 unit -12.5 mg-1 mg cap Take 1 capsule by mouth once daily. Medications CHANGED on OFFICE MANAGER medication list escitalopram oxalate (LEXAPRO) 20 mg tablet losartan (COZAAR) 50 mg tablet amLODIPine (NORVASC) 10 mg tablet Medications REMOVED from OFFICE MANAGER medication list aspirin, enteric coated 81 mg ORAL EC tablet Course of therapy completed atenolol 25 mg ORAL tablet Course of therapy completed Fenofibric Acid (TRILIPIX) 135 mg ORAL CpDR Course of therapy completed guaifenesin/dextromethorphan (MUCINEX DM ORAL) Course of therapy completed INV VITAMIN D3 10,000 UNITS OR PLACEBO CAPSULE (IRB 18-310) Erroneous entry Multivitamin capsule Course of therapy completed pantoprazole DR (PROTONIX) 40 mg tablet Course of therapy completed sucralfate (CARAFATE) 1 gram tablet Course of therapy completed terbinafine (LAMISIL) 250 mg ORAL tablet Course of therapy completed valsartan (DIOVAN) 160 mg ORAL tablet Course of therapy completed Additional comments: Verified medication information with e-scripts/dispense report and chart review. Confirmed medications with patient/family. Patient was not sure on warfarin dosing - Called Dr Mojica office ([phone]) to verify warfarin dosing - 6 mg Thursday - Thursday and 4 mg Sat AND Sun. Also confirmed pravastatin is 40 mg, Losartan 50 mg, amlodipine 10 mg and furosemide 40 mg (2 tab BID). Patient stated not taking Multivitamin - taking eye multivitamin. Removed multivitamin and added Icaps to med list. Removed Inv vit D3 or place from med list and replace with Vit D3. Patient stated no longer taking aspirin, atenolol, Fenofibric, Mucinex, pantoprazole, sucralfate, terbinafine and valsartan - removed from med list. Patient stated taking allopurinol and Lasix - added to med list. Corrected Lexapro to 20 mg, Losartan to 50 mg and amlodipine to 10 mg per pharmacy and doctors office. Required follow up actions for nursing: None The below information represents the best possible medication history: Yes Medication history completed by: Garden Equipment Mechanic: Shanti Dia (Rn Examiner) Source of history: Patient: Reliability of source: Appears reliable, clearly identified: Medication name, Medication dose, Medication route, and Medication frequency, Outside hospital records - Name:Dr Mojica [phone], Pharmacy records: [facility] [phone], and [facility] records Medication nonadherence identified: No barriers noted Reconciliation completed: No, pharmacist not yet reviewed Patient interested in Bedside Delivery Services or using OP Pharmacy at discharge? No Preferred outpatient pharmacy: On license of [facility] [address] [place] [id number] [facility] [phone] [facility] Allergies: No Known Allergies Prior to Admission Medications Prescriptions Last Dose Informant Patient Reported? Taking? allopurinol (ZYLOPRIM) 100 mg tablet Yes Yes Sig: Take 100 mg by mouth once daily. amLODIPine (NORVASC) 10 mg tablet Yes Yes Sig: Take 10 mg by mouth once daily. cholecalciferol, vitamin D3, 250 mcg (10,000 unit) tab Yes Yes Sig: Take 1 tablet by mouth once daily. escitalopram oxalate (LEXAPRO) 20 mg tablet Yes Yes Sig: Take 20 mg by mouth once daily. furosemide (LASIX) 40 mg tablet Yes Yes Sig: Take 80 mg by mouth twice daily. losartan (COZAAR) 50 mg tablet Yes Yes Sig: Take 50 mg by mouth once daily. magnesium oxide,aspartate,citr 400 mg magnesium cap Yes Yes Sig: Take 1 capsule by mouth once daily. potassium chloride (KCL-20 ORAL) Yes Yes Sig: Take 1 tablet by mouth once daily. pravastatin 40 mg ORAL tablet Yes Yes Sig: Take 40 mg by mouth once daily. vit C-E-zinc xa-dhvs-bej-zeax (ICAPS AREDS2) 250 mg-200 unit -12.5 mg-1 mg cap Yes Yes Sig: Take 1 capsule by mouth once daily. warfarin (COUMADIN) 4 mg tablet Yes Yes Sig: Take 4-6 mg by mouth daily as directed. 6 mg Mon - Fri 4 mg Sat AND Sun Facility-Administered Medications: None Shanti Dia (Rn Examiner)[id number] 07/22/2022[facility] NoteHNO ID: [id number] Author: Wendy Melgar RN Service: Care Management Author Type: Registered Nurse Type: Care Mgt Initial Assessment Filed: 07/22/2022 12:42 PM Note Text: CARE MANAGEMENT: ASSESSMENT AND DISCHARGE PLAN SERVICE DATE: July 22, 2022 SERVICE TIME: 1238 PRIMARY CARE PHYSICIAN: Bashir Cortez MD Primary Contact: Extended Emergency Contact Information Primary Emergency Contact: kevyn mcclain Address: [address] [place] [address] Relation: Spouse ADMISSION STATUS: Inpatient Insurance Provider: [facility] OPT CARE O NEEDS PRIOR TO DISCHARGE Needs Prior to Discharge: To Be Determined;OT/PT Evaluation;Discharge Prescriptions POTENTIAL TRANSITION PLANS To Be Determined;Outpatient Therapy;Home OT/PT Based on clinical judgement, Care Management will address the following needs: Medical;Social;Functional Patient's perception of need for this admission: lost balance, fell and hit his head ADVANCE DIRECTIVES Current Advance Directive: Health Care Power of Wind Project Manager;Living Will (Requested copy) In Chart: No MS/BEHAVIOR Baseline Mental Status Prior to this Illness what was the patient's Baseline Mental Status?: Alert AND Oriented Prior to this illness, has anyone described the patient having any of the following behaviors?: Not Applicable Relationship of the informant to the patient:: Self READMISSION Last Discharge Date: N/A Is this Within the Past 30 days? 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 lives with spouse in a multlevel home with 2-3 steps to enter bed and bath on first level Are there any potential risks or gaps identified by risk/functional/fall,etc. scores in the EMR?: No Any potential risks related to substance abuse and/or behavioral health?: No Based on clinical judgement, Care Management will address the following needs: Medical;Social;Functional CAREGIVER ASSESSMENT Caregiver is ready, willing and able to meet the patient's needs as recommended by the inter-professional team:: No Caregiver needed MEDICAL Medical Needs: Two or more chronic diseases;Durable Medical Equipment Health Issues Impacting Discharge Plan: Newly diagnosed;Chronic Newly Diagnosed: SDH Chronic: HTN, Afib, obesity Medication Adherance I am convinced of the importance of my prescription medication: 0 - Agree Completely I worry that my prescription medication will do more harm than good to me : 0 - Disagree Completely I feel financially burdened by my keb-la-dmbnsx expenses for my prescription medication:: 0 - Disagree Completely Risk Score: 0 Patient is categorized as: Low risk < 2 SOCIAL Living Arrangements: Home Lives With: Spouse Financial Resources: Retired Supportive Patient Contact:: Yes Contact Resources: Family Family Name/Phone: Kevyn Mcclain ( [facility] [place]) [phone] Is Patient Psychosocially Complex?: Yes, refer to Social Work Contact Resources: Family Family Name/Phone: Kevyn Ambrocio [facility] [place]) [phone] Health Literacy How often do you need to have someone help you when you read instructions, pamphlets, or other written material from your doctor or pharmacy? : 2 - Rarely How confident are you filling out medical forms by yourself?: 2 - Quite a bit If Patient scores > 3 on either question, the following interventions were put into place:: Patient did not score > 3 on either question. Food Insecurity: No Food Insecurity Worried About Running Out of Food in the Last Year: Never true Ran Out of Food in the Last Year: Never true Financial Resource Strain: Low Risk Difficulty of Paying Living Expenses: Not hard at all Transportation Needs: No Transportation Needs Lack of Transportation (Medical): No Lack of Transportation (Non-Medical): No Housing Stability: Unknown Unable to Pay for Housing in the Last Year: No Number of Places Lived in the Last Year: Not on file Unstable Housing in the Last Year: No BEHAVIORAL/COGNITIVE Psychosocial Psychosocial Needs: None FUNCTIONAL How do you manage to accomplish the following: Independent: Ambulation;Bathe/Shower;Dress;Going to the bathroom;Medication Management;Transportation to appointments/community Services/Needs//Equipment Does Patient Currently Receive Any Community Services or Home Care?: None Equipment Prior to Admis (more content not included)...[facility]11-29-2022 NoteHNO ID: [id number] Author: Gurinder Kraft DO Service: Neurology ICU Author Type: Resident Type: Progress Notes Filed: 07/22/2022 12:24 PM Note Text: Attestation signed by Tha Nickerson MD at 07/23/2022 3:20 PM STAFF COORDINATION OF CRITICAL CARE I have reviewed the progress note obtained and documented by the resident, and I personally participated in the rivera components. I have discussed the case and management of the patient's care. The following comments revise or confirm relevant rivera components of the note. I have repeated the examination and confirm the findings except as documented. PATIENT PROBLEMS I REVIEWED, REVISED AND/OR INITIATED: The care of this patient required my full attention and direct personal management of: Principal Problem: SDH (subdural hematoma) Active Problems: HTN (hypertension) Subarachnoid hemorrhage following injury, no loss of consciousness (HCC) Facial droop Dysarthria Fall Current use of half-way anticoagulation Atrial fibrillation (HCC) QT prolongation Bradycardia Urinary retention Resolved Problems: * No resolved hospital problems. * ==== [facility] Staff Physician note of personal involvement in Care The patient is critically ill because of imminent risk of acute brain damage and continues to require intensive support and observation. This patient has a high probability of sudden, clinically significant deterioration, which requires the highest level of physician preparedness to intervene urgently. I managed/supervized life or organ supporting interventions that required frequent physician assessment. I devoted my full attention to the direct care of this patient for the amount of time indicated below. Time I spent with family or surrogate(s) is included only if the patient was incapable of providing the necessary information or participating in medical decision making. Time devoted to teaching or to any procedures I billed separately is not included. CRITICAL CARE: I personally spent 35 minutes of time involved in the care of this patient. 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 Plan of care discussed with: Provider, RN, Patient. Tha Nickerson MD Staff, Neurointensive Care Neurological [place] Date of Service: 07/23/2022 Time of Service: 3:18 PM This is an electronically created document. If printed, please do not remove from the chart or modify printed copy. SERVICE DATE: 07/22/2022 SERVICE TIME: 12:22 PM PROGRESS NOTE NEURO ICU STROKE (HEMORRHAGIC) SERVICE DATE: 07/22/2022 SERVICE TIME: 7:49 AM Stroke Mechanism: Initial NIHSS Score: 2 METRICS: Hemorrhagic Stroke Type?: Intracranial Hemorrhage [place] Coma Scale Totals (Calculated): 15 Total ICH Score (0-6): 1 Date Patient Last Known Well: 07/21/22 Date of Patient Arrival at THIS Facility: 07/21/22 Time of Patient Arrival at THIS Facility: 2058 Premorbid Modified Maria E Score: 0=0 - No symptoms at all Subjective HPI: 86 yo male pmh afib, prosthetic aortic valve(on warfarin), CAD, HTN, ELIJAH(cpap), and EMMONAK presents [facility] after a ground level fall. He had taken a nap in his chair after waking up he felt dizzy(unable to describe sensation) stumbled and fell to the ground hitting his head on a table. His witnessed the fall. She reports that he had a left facial droop with left sided weakness and slurred speech at the time of the event. She called EMS. On arrival to [place] he was noted to have an NIHSS of 4 with left facial droop, R ataxia and dysarthria. Nystagmus was also noted on their assessment. Concern was that he was having an acute posterior ischemic stroke which caused him to fall. CTH was completed revealing a questionable small subdural hemorrhage along the left side of the falx. CTA was unrevealing for high grade stenosis or LVO. He would not be a candidate for thrombolytic given concern for bleeding in his head and he did not have an LVO for EVT. His INR was 2.8 and he was given kcentra and vit. K for reversal of his warfarin. Case was discussed with Dr. Kowalski(trauma), Dr. 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 30, 2001 resolved [facility] Work Phone: [phone]) 405-498909-07-2001 Evaluation note* Diagnosis Onset Date Resolution Status 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 Essential (primary) hypertension chronic H/O aortic valve replacement April 30, 2001 chronic Longstanding persistent atrial fibrillation chronic Secondary pulmonary arterial hypertension [facility] Work Phone: [phone]) 852-640809-07-2001 Evaluation note* Diagnosis Onset Date Resolution Status 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 Essential (primary) hypertension chronic H/O aortic valve replacement April 30, 2001 chronic Longstanding persistent atrial fibrillation chronic Secondary pulmonary arterial hypertension chronic Subdural hematoma acute Chronic diastolic heart failure chronic Essential (primary) hypertension chronic H/O aortic valve replacement April 30, 2001 chronic Longstanding persistent atrial fibrillation chronic H/O coronary artery bypass surgery April 30, 2001 resolved [facility] Work Phone: [phone]) 346-349909-07-2001 Evaluation note* Diagnosis Onset Date Resolution Status Subdural hematoma acute Chronic diastolic heart failure chronic Essential (primary) hypertension chronic H/O aortic valve replacement April 30, 2001 chronic Longstanding persistent atrial fibrillation chronic H/O coronary artery bypass surgery April 30, 2001 resolved [facility] Work Phone: [phone]) 727-181009-07-2001 Evaluation note* Diagnosis Onset Date Resolution Status Pre-op evaluation acute Subdural hematoma acute Chronic diastolic heart failure chronic Essential (primary) hypertension chronic H/O aortic valve replacement April 30, 2001 chronic Longstanding persistent atrial fibrillation chronic H/O coronary artery bypass surgery April 30, 2001 resolved [facility] Work Phone: [place] complaint+Reason for visit Narrative* Chief Complaint INR INR 6 m fu w TREADLE CUT OFF SAW OPERATOR per TREADLE CUT OFF SAW OPERATOR INR Reason for Visit Pre-op evaluation Subdural hematoma Chronic diastolic heart failure Essential (primary) hypertension H/O aortic valve replacement Longstanding persistent atrial fibrillation H/O coronary artery bypass surgery [facility] Work Phone: Chief complaint+Reason for visit Narrative* Chief Complaint 6 m fu w TREADLE CUT OFF SAW OPERATOR per TREADLE CUT OFF SAW OPERATOR INR TIA MEMORY LOSS Reason for Visit Pre-op evaluation Subdural hematoma Chronic diastolic heart failure Essential (primary) hypertension H/O aortic valve replacement Longstanding persistent atrial fibrillation H/O coronary artery bypass surgery [facility] Work Phone: Evaluation noteNo assessment information available [facility] Work Phone: Evaluation note* Diagnosis Nontraumatic subdural hemorrhage (HCC) Subdural hemorrhage documented in this encounter [facility] note* Diagnosis Traumatic brain injury with loss of consciousness, sequela (HCC)- Primary SAH (subarachnoid hemorrhage) (HCC) Subarachnoid hemorrhage documented in this encounter [facility] note* Diagnosis Traumatic brain injury with loss of consciousness, sequela (HCC)- Primary documented in this encounter [facility] note* Diagnosis SDH (subdural hematoma)- Primary Subdural hemorrhage Subarachnoid hemorrhage following injury, no loss of consciousness, subsequent encounter [facility] Diagnosis SDH (subdural hematoma) Subdural hemorrhage Subarachnoid hemorrhage following injury, no loss of consciousness, subsequent encounter [facility] Diagnosis Persistent atrial fibrillation (HCC)- Primary Atrial fibrillation History of radiofrequency ablation (RFA) procedure for cardiac arrhythmia Bradycardia Other specified cardiac dysrhythmias Chronic diastolic heart failure (HCC) Chronic diastolic heart failure At risk for stroke Other specified personal history presenting hazards to health Current use of half-way anticoagulation Long-term (current) use of anticoagulants [facility]* Diagnosis Sensorineural hearing loss (SNHL) of both ears- Primary Imbalance Abnormality of gait [facility]* Diagnosis Sensorineural hearing loss, bilateral- Primary [facility]* Diagnosis Sensorineural hearing loss, bilateral- Primary [facility]* Diagnosis Onset Date Resolution Status Dementia acute Polyneuropathy acute Memory loss noneactive Atherosclerosis of coronary artery of [place] with angina pectoris chroni c Essential (primary) hypertension chronic H/O aortic valve replacement April 30, 2001 chronic Hyperlipidemia chronic Longstanding persistent atrial fibrillation chronic Cerumen in auditory canal on examination [facility] Work Phone: Reason for referral (narrative)No [facility] for [facility]: Chief Complaint and Reason for Visit Chief Complaint 5m fu INR Reason for Visit Essential (primary) hypertension H/O aortic valve replacement Hyperlipidemia Longstanding persistent atrial fibrillation H/O coronary artery bypass surgery Chief Complaint INR INR 4 M FU Reason for Visit Atherosclerosis of c oronary artery of [place] heart with angina pectoris Essential (primary) hypertension H/O aortic valve replacement Longstanding persistent atrial fibrillation Secondary pulmonary arterial hypertension Chief Complaint INR 4 M FU INR Reason for Visit Atherosclerosis of c oronary artery of [place] heart with angina pectoris Essential (primary) hypertension H/O aortic valve replacement Longstanding persistent atrial fibrillation Secondary pulmonary arterial hypertension Chief Complaint INR 4 M FU INR INR Reason for Visit Atherosclerosis of c oronary artery of [place] heart with angina pectoris Essential (primary) hypertension H/O aortic valve replacement Longstanding persistent atrial fibrillation Secondary pulmonary arterial hypertension Chief Complaint INR 4 M FU INR INR INR Reason for Visit Atherosclerosis of c oronary artery of [place] heart with angina pectoris Essential (primary) hypertension H/O aortic valve replacement Longstanding persistent atrial fibrillation Secondary pulmonary arterial hypertension Chief Complaint 4 M FU INR INR INR INR Reason for Visit Atherosclerosis of c oronary artery of [place] heart with angina pectoris Essential (primary) hypertension H/O aortic valve replacement Longstanding persistent atrial fibrillation Secondary pulmonary arterial hypertension Chief Complaint INR INR STROKE SYMPTOMS Chief Complaint INR INR STROKE SYMPTOMS S/P [facility] LBP,CTA per TREADLE CUT OFF SAW OPERATOR (SCANNED) Reason for Visit Atherosclerosis of c oronary artery of [place] heart with angina pectoris Essential (primary) hypertension H/O aortic valve replacement Longstanding persistent atrial fibrillation Secondary pulmonary arterial hypertension Chief Complaint STROKE SYMPTOMS S/P [facility] LBP,CTA per TREADLE CUT OFF SAW OPERATOR (SCANNED) 6 M FU GAIT TRAINING/RX HERE Reason for Visit Atherosclerosis of c oronary artery of [place] heart with angina pectoris Essential (primary) hypertension H/O aortic valve replacement Longstanding persistent atrial fibrillation Secondary pulmonary arterial hypertension Subdural hematoma Chronic diastolic heart failure Essential (primary) hypertension H/O aortic valve replacement Longstanding persistent atrial fibrillation H/O coronary artery bypass surgery Chief Complaint GAIT TRAINING/RX HER E 3 m fu W TREADLE CUT OFF SAW OPERATOR PER TREADLE CUT OFF SAW OPERATOR (DO NOT MOVE) INR Reason for Visit Subdural hematoma Chronic diastolic heart failure Essential (primary) hypertension H/O aortic valve replacement Longstanding persistent atrial fibrillation H/O coronary artery bypass surgery Chief Complaint 3 m fu W TREADLE CUT OFF SAW OPERATOR PER TREADLE CUT OFF SAW OPERATOR (DO NOT MOVE) INR INR Reason for Visit Subdural hematoma Chronic diastolic heart failure Essential (primary) hypertension H/O aortic valve replacement Longstanding persistent atrial fibrillation H/O coronary artery bypass surgery Chief Complaint 3 m fu W TREADLE CUT OFF SAW OPERATOR PER TREADLE CUT OFF SAW OPERATOR (DO NOT MOVE) INR INR INR Reason for Visit Subdural hematoma Chronic diastolic heart failure Essential (primary) hypertension H/O aortic valve replacement Longstanding persistent atrial fibrillation H/O coronary artery bypass surgery Chief Complaint 3 m fu W TREADLE CUT OFF SAW OPERATOR PER TREADLE CUT OFF SAW OPERATOR (DO NOT MOVE) INR INR INR INR Reason for Visit Subdural hematoma Chronic diastolic heart failure Essential (primary) hypertension H/O aortic valve replacement Longstanding persistent atrial fibrillation H/O coronary artery bypass surgery Chief Complaint TIA MEMORY LOSS INR Chief Complaint MEMORY LOSS INR Memory loss 6 m fu w TREADLE CUT OFF SAW OPERATOR per TREADLE CUT OFF SAW OPERATOR(MOVED FROM TREADLE CUT OFF SAW OPERATOR) EARS CLOGGED INR- ADD BADDOUR EORDERS 12/22/23 Reason for Visit Dementia Polyneuropathy Memory loss Atherosclerosis of coronary artery of [place] heart with angina pectoris Essential (primary) hypertension H/O aortic valve replacement Hyperlipidemia Longstanding persistent atrial fibrillation Cerumen in auditory canal on examination Chief Complaint Admit Date INR- August 08, 2024 12:08pm BALANCE. RX HERE October 03, 2024 1:30pm INR- November 21, 2024 10: 06am Chief Complaint Admit Date INR- August 08, 2024 12:08pm BALANCE. RX HERE October 03, 2024 1:30pm INR- November 21, 2024 10: 06am INR- 2024 10:0 2am Pulmonary hypertension, unspecified Apri l 2024 3:43pm Chief Complaint Admit Date BALANCE. RX HERE October 03, 2024 1:30pm INR- November 21, 2024 10: 06am INR- 2024 10:0 2am Pulmonary hypertension, unspecified Apri l 2024 3:43pm Pulmonary fibrosis- labwork December 06, 2024 10:28am Chief Complaint Admit Date BALANCE. RX HERE October 03, 2024 1:30pm INR- November 21, 2024 10: 06am Pulmonary hypertension, unspecified Apri l 2024 3:43pm Pulmonary fibrosis- labwork December 06, 2024 10:28am INR- December 16, 2024 3:1 6pm 6 M FU December 22, 2024 1:49pm INR- December 22, 2024 2:31pm Reason for Visit Admit Date Pulmonary fibrosis December 22, 2024 1:49pm Shortness of breath December 22, 2024 1:49pm Atherosclerosis of coronary artery of [place] heart with angina pectoris December 22, 2024 1:49pm Essential (primary) hypertension December 1:49pm H/O aortic valve replacement December 22 1:49pm Hyperlipidemia December 22, 2024 1:49pm Longstanding persistent atrial fibrillat ion December 22, 2024 1:49pm Chief Complaint Admit Date BALANCE. RX HERE October 03, 2024 1:30pm INR- November 21, 2024 10: 06am Pulmonary hypertension, unspecified Apri l 2024 3:43pm Pulmonary fibrosis- labwork December 06, 2024 10:28am INR- December 16, 2024 3:1 6pm 6 M FU December 22, 2024 1:49pm INR- December 22, 2024 2:31pm 9 mo fu January 09, 2025 12:57 pm Chief Complaint Admit Date BALANCE. RX HERE October 03, 2024 1:30pm INR- November 21, 2024 10: 06am Pulmonary hypertension, unspecified Apri l 2024 3:43pm Pulmonary fibrosis- labwork December 06, 2024 10:28am INR- December 16, 2024 3:1 6pm 6 M FU December 22, 2024 1:49pm INR- December 22, 2024 2:31pm 9 mo fu January 09, 2025 12:57 pm LABS January 21, 2025 1:01p m Reason for Visit Admit Date Pulmonary fibrosis December 22, 2024 1:49pm Shortness of breath December 22, 2024 1:49pm Atherosclerosis of coronary artery of [place] heart with angina pectoris December 22, 2024 1:49pm Essential (primary) hypertension December 1:49pm H/O aortic valve replacement December 22 1:49pm Hyperlipidemia December 22, 2024 1:49pm Longstanding persistent atrial fibrillat ion December 22, 2024 1:49pm Dementia January 09, 2025 12:57 pm Polyneuropathy January 09, 2025 12:57 pm Chief Complaint Admit Date INR- November 21, 2024 10: 06am Pulmonary hypertension, unspecified Apri l 2024 3:43pm Pulmonary fibrosis- labwork December 06, 2024 10:28am INR- December 16, 2024 3:1 6pm 6 M FU December 22, 2024 1:49pm INR- December 22, 2024 2:31pm 9 mo fu January 09, 2025 12:57 pm LABS January 21, 2025 1:01p m PRESENCE OF PROSTHETIC HEART VALVE February 06, 2025 12:47pm 6 W FU February 07, 2025 11:0 9am Chief Complaint Admit Date INR- November 21, 2024 10: 06am Pulmonary hypertension, unspecified Apri l 2024 3:43pm Pulmonary fibrosis- labwork December 06, 2024 10:28am INR- December 16, 2024 3:1 6pm 6 M FU December 22, 2024 1:49pm INR- December 22, 2024 2:31pm 9 mo fu January 09, 2025 12:57 pm LABS January 21, 2025 1:01p m PRESENCE OF PROSTHETIC HEART VALVE February 06, 2025 12:47pm 6 W FU February 07, 2025 11:0 9am INT LABS February 07, 2025 11:5 0am Reason for Visit Admit Date Pulmonary fibrosis December 22, 2024 1:49pm Shortness of breath December 22, 2024 1:49pm Atherosclerosis of coronary artery of [place] heart with angina pectoris December 22, 2024 1:49pm Essential (primary) hypertension December 1:49pm H/O aortic valve replacement December 22 1:49pm Hyperlipidemia December 22, 2024 1:49pm Longstanding persistent atrial fibrillat ion December 22, 2024 1:49pm Dementia January 09, 2025 12:57 pm Polyneuropathy January 09, 2025 12:57 pm Shortness of breath February 07, 2025 11:0 9am Atherosclerosis of coronary artery of [place] heart with angina pectoris February 07, 2025 11:09am Essential (primary) hypertension February 072024 11:09am H/O aortic valve replacement February 07, 2025 11:09am Hyperlipidemia February 07, 2025 11:0 9am Longstanding persistent atrial fibrillat ion February 07, 2025 11:09am Chief Complaint Admit Date INR- November 21, 2024 10: 06am Pulmonary hypertension, unspecified Apri l 2024 3:43pm Pulmonary fibrosis- labwork December 06, 2024 10:28am INR- December 16, 2024 3:1 6pm 6 M FU December 22, 2024 1:49pm INR- December 22, 2024 2:31pm 9 mo fu January 09, 2025 12:57 pm LABS January 21, 2025 1:01p m PRESENCE OF PROSTHETIC HEART VALVE February 06, 2025 12:47pm 6 W FU February 07, 2025 11:0 9am INT LABS February 07, 2025 11:5 0am 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 March 02, 2025 12 :55pm INR- March 06, 2025 12:4 9pm Chief Complaint Admit Date INR- November 21, 2024 10: 06am Pulmonary hypertension, unspecified Apri l 2024 3:43pm Pulmonary fibrosis- labwork December 06, 2024 10:28am INR- December 16, 2024 3:1 6pm 6 M FU December 22, 2024 1:49pm INR- December 22, 2024 2:31pm 9 mo fu January 09, 2025 12:57 pm LABS January 21, 2025 1:01p m PRESENCE OF PROSTHETIC HEART VALVE February 06, 2025 12:47pm 6 W FU February 07, 2025 11:0 9am INT LABS February 07, 2025 11:5 0am 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 March 02, 2025 12 :55pm 2 ORDERS SCANNED IN FOR LABS March 10, 2025 10:38am INR- March 13, 2025 10:4 3am Chief Complaint Admit Date INR- November 21, 2024 10: 06am Pulmonary hypertension, unspecified Apri l 2024 3:43pm Pulmonary fibrosis- labwork December 06, 2024 10:28am INR- December 16, 2024 3:1 6pm 6 M FU December 22, 2024 1:49pm INR- December 22, 2024 2:31pm 9 mo fu January 09, 2025 12:57 pm LABS January 21, 2025 1:01p m PRESENCE OF PROSTHETIC HEART VALVE February 06, 2025 12:47pm 6 W FU February 07, 2025 11:0 9am INT LABS February 07, 2025 11:5 0am 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 March 17, 2025 8:50am Reason for Visit Admit Date Pulmonary fibrosis December 22, 2024 1:49pm Shortness of breath December 22, 2024 1:49pm Atherosclerosis of coronary artery of [place] heart with angina pectoris December 22, 2024 1:49pm Essential (primary) hypertension December 1:49pm H/O aortic valve replacement December 22 1:49pm Hyperlipidemia December 22, 2024 1:49pm Longstanding persistent atrial fibrillat ion December 22, 2024 1:49pm Dementia January 09, 2025 12:57 pm Polyneuropathy January 09, 2025 12:57 pm Shortness of breath February 07, 2025 11:0 9am Atherosclerosis of coronary artery of [place] heart with angina pectoris February 07, 2025 11:09am Essential (primary) hypertension February 072024 11:09am H/O aortic valve replacement February 07, 2025 11:09am Hyperlipidemia February 07, 2025 11:0 9am Longstanding persistent atrial fibrillat ion February 07, 2025 11:09am Shortness of breath March 17, 2025 8:50 am Atherosclerosis of coronary artery of [place] heart with angina pectoris March 17, 2025 8:50am Essential (primary) hypertension March 172024 8:50am H/O aortic valve replacement March 17, 2025 8:50am Hyperlipidemia March 17, 2025 8:50 am Longstanding persistent atrial fibrillat ion March 17, 2025 8:50am Chief Complaint Admit Date Pulmonary hypertension, unspecified Apri l 2024 3:43pm Pulmonary fibrosis- labwork December 06, 2024 10:28am INR- December 16, 2024 3:1 6pm 6 M FU December 22, 2024 1:49pm INR- December 22, 2024 2:31pm 9 mo fu January 09, 2025 12:57 pm LABS January 21, 2025 1:01p m PRESENCE OF PROSTHETIC HEART VALVE February 06, 2025 12:47pm 6 W FU February 07, 2025 11:0 9am INT LABS February 07, 2025 11:5 0am 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 March 17, 2025 8:50am Advance Directives No Advanced Directives Records Found Advance Directive Response Recorded Date/ Time Advance Directives Yes January 12 1:22pm Living Will Yes November 08, 2020 11:31pm Power of Wind Project Manager Yes November 08 11:31pm Advance Directive Response Recorded Date/ Time Name of Medical Power of Wind Project Manager KEVYN ARVIZU GTON July 21, 2022 6:53pm Advance Directives Yes January 12 12:22pm Living Will Yes July 21, 2 022 6:53pm Power of Wind Project Manager Yes July 21, 2022 6:53pm Latest Code Status on File Code Status Date Activated Date Inactivated Comments Full Code 07/21/2022 10:38 PM 07/24/2022 7:53 PM Full Code Order Discussed With: Discussion Not M edically Appropriate Latest Code Status on File Code Status Date Activated Date Inactivated Comments Full Code 07/21/2022 10:38 PM 07/24/2022 7:53 PM Advance Directive Response Recorded Date/ Time Advance Directives Yes January 12 1:22pm Living Will Yes July 21 7:53pm Power of Wind Project Manager Yes July 21, 2022 7:53pm Latest Code Status on File Code Status Date Activated Date Inactivated Comments Full Code 07/21/2022 10:38 PM 07/24/2022 7:53 PM Question Answer Comments Full Code Order Discussed With: Discussion Not Medically Appropriate Latest Code Status on File Code Status Date Activated Date Inactivated Comments Full Code 07/21/2022 10:38 PM 07/24/2022 7:53 PM Question Answer Comments Full Code Order Discussed With: Discussion Not Medically Appropriate Advance Directive Response Recorded Date/ Time Advance Directives Yes January 12 12:22pm Living Will Yes July 21 6:53pm Power of Wind Project Manager Yes July 21, 2022 6:53pm Advance Directive Response Recorded Date/ Time Living Will Yes July 21 7:53pm Do you have a Healthcare Power of Wind Project Manager? Yes July 21, 2022 7:53pm Living Will Yes August 24 5:53am Do you have a Healthcare Power of Wind Project Manager? Yes August 24, 2024 5:53am Advance Directives Yes January 12 1:22pm Advance Directive Response Recorded Date/ Time Living Will Yes November 21, 2024 10:54pm Do you have a Healthcare Power of Wind Project Manager? Yes November 21, 2024 10:54pm Living Will Yes July 21 7:53pm Do you have a Healthcare Power of Wind Project Manager? Yes July 21, 2022 7:53pm Living Will Yes August 24 5:53am Do you have a Healthcare Power of Wind Project Manager? Yes August 24, 2024 5:53am Advance Directives Yes January 12 1:22pm Advance Directive Response Recorded Date/ Time Living Will Yes November 21, 2024 10:54pm Do you have a Healthcare Power of Wind Project Manager? Yes November 21, 2024 10:54pm Living Will Yes August 24 5:53am Do you have a Healthcare Power of Wind Project Manager? Yes August 24, 2024 5:53am Advance Directives Yes January 12 1:22pm Advance Directive Response Recorded Date/ Time Living Will Yes July 21 7:53pm Do you have a Healthcare Power of Wind Project Manager? Yes July 21, 2022 7:53pm Living Will Yes November 21, 2024 10:54pm Do you have a Healthcare Power of Wind Project Manager? Yes November 21, 2024 10:54pm Living Will Yes December 21, 2024 10:15pm Do you have a Healthcare Power of Wind Project Manager? Yes December 21, 2024 10:15pm Living Will Yes August 24 5:53am Do you have a Healthcare Power of Wind Project Manager? Yes August 24, 2024 5:53am Advance Directives Yes January 12 1:22pm Advance Directive Response Recorded Date/ Time Living Will Yes July 21 7:53pm Do you have a Healthcare Power of Wind Project Manager? Yes July 21, 2022 7:53pm Living Will Yes November 21, 2024 10:54pm Do you have a Healthcare Power of Wind Project Manager? Yes November 21, 2024 10:54pm Living Will Yes December 21, 2024 10:15pm Do you have a Healthcare Power of Wind Project Manager? Yes December 21, 2024 10:15pm Living Will Yes August 24 5:53am Do you have a Healthcare Power of Wind Project Manager? Yes August 24, 2024 5:53am Living Will Yes January 22, 2025 4 :35am Do you have a Healthcare Power of Wind Project Manager? Yes January 22, 2025 4:35am Advance Directives Yes January 12 1:22pm Advance Directive Response Recorded Date/ Time Living Will Yes July 21 7:53pm Do you have a Healthcare Power of Wind Project Manager? Yes July 21, 2022 7:53pm Living Will Yes November 21, 2024 10:54pm Do you have a Healthcare Power of Wind Project Manager? Yes November 21, 2024 10:54pm Living Will Yes December 21, 2024 10:15pm Do you have a Healthcare Power of Wind Project Manager? Yes December 21, 2024 10:15pm Living Will Yes January 22, 2025 4 :35am Do you have a Healthcare Power of Wind Project Manager? Yes January 22, 2025 4:35am Advance Directives Yes January 12 1:22pm Family History No Family History Records Found Relationship Condition Age at Onset Recorded Date/T ale father Cardiac disease Unknown mother Diabetes mellitus Unknown Reason for Referral Specialty Diagnoses / Procedures Referred By Contac t Referred To Contact CT IMAGING Diagnoses Nontraumatic subdural hemorrhage (HCC) Procedures CT BRAIN WO IVCON CT HEAD/BRAIN W/O CONTRAST MATERIAL Gurinder Corona, TOP CUTTER.CARE MANAGEMENT COORDINATOR [address] [place] [address] Ct Imaging Referral ID Status Reason Start Date Expiration Date V isits Requested Visits Authorized [id number] Closed Auto-Generate d Referral 08/06/2022 08/23/2023 1 1 Specialty Diagnoses / Procedures Referred By Contac t Referred To Contact [facility] Diagnoses Traumatic brain injury with loss of consciousness, sequela (HCC) Procedures CONSULT TO PHYSICAL THERAPY PHYSICAL THERAPY EVALUATION HIGH COMPLEX 45 MINS Jose Corona MD [address] [place] [id number] [facility] [address] [address] Referral ID Status Reason Start Date Expiration Date Visits Requested Visits Authorized [id number] Pending Review Auto-Generat ed Referral 08/11/2023 1 1 Specialty Diagnoses / Procedures Referred By Contac t Referred To Contact [facility] Diagnoses Traumatic brain injury with loss of consciousness, sequela (HCC) Procedures CONSULT TO SPEECH THERAPY OFFICE/OUTPATIENT NEW [facility] 60-74 MINUTES Jose Corona MD [address] [place] [id number] [facility] [address] [address] Referral ID Status Reason Start Date Expiration Date Visits Requested Visits Authorized [id number] Pending Review Auto-Generat ed Referral 2 08/11/2023 1 1 Specialty Diagnoses / Procedures Referred By Contac t Referred To Contact CT IMAGING Diagnoses SDH (subdural hematoma) Subarachnoid hemorrhage following injury, no loss of consciousness, subsequent encounter Procedures CT BRAIN WO IVCON CT HEAD/BRAIN W/O CONTRAST MATERIAL Sweta Jenkins APRN.CARE MANAGEMENT COORDINATOR [address] [place] [address] Ct Imaging Referral ID Status Reason Start Date Expiration Date V isits Requested Visits Authorized [id number] Closed Auto-Generate d Referral 08/06/2022 09/05/2023 1 1 Specialty Diagnoses / Procedures Referred By Contac t Referred To Contact Procedures HEARING TEST/AUDIOGRAM COMPRE AUDIOMETRY THRESHOLD EVAL SP RECOGNIJ He[place], [place] M, AuD, CCC-A [address] [place] [address] [facility] [address] [place] [address] Referral ID Status Reason Start Date Expiration Date Visits Requested Visits Authorized [id number] Pending Review Auto-Generat ed Referral 3 06/23/2024 1 1 Specialty Diagnoses / Procedures Referred By Contac t Referred To Contact Procedures HEARING TEST/AUDIOGRAM COMPRE AUDIOMETRY THRESHOLD EVAL SP RECOGNIJ [facility] [address] [address] [facility] [address] [place] [address] Referral ID Status Reason Start Date Expiration Date Visits Requested Visits Authorized [id number] Pending Review Auto-Generat ed Referral 3 07/09/2024 1 1 Summary Purpose Additional Source Comments Goals (unrecognized section and content) Goals may be documented in a n alternate sectionGoals may be documented in an alternate sectionGoals may be documented in an alternate sectionGoals may be documented in an alternate sectionGoals may be documented in an alternate sectionGoals may be documented in an alternate sectionGoals may be documented in an alternate sectionGoals may be documented in an alternate sectionGoals may be documented in an alternate sectionGoals may be documented in an alternate sectionGoals may be documented in an alternate sectionGoals may be documented in an alternate sectionGoals may be documented in an alternate sectionGoals may be documented in an alternate sectionGoals may be documented in an alternate sectionGoals may be documented in an alternate sectionGoals may be documented in an alternate sectionGoals may be documented in an alternate sectionGoals may be documented in an alternate sectionGoals may be documented in an alternate sectionGoals may be documented in an alternate sectionGoals may be documented in an alternate sectionGoals may be documented in an alternate sectionGoals may be documented in an alternate sectionGoals may be documented in an alternate sectionGoals may be documented in an alternate sectionGoals may be documented in an alternate sectionGoals may be documented in an alternate sectionGoals may be documented in an alternate sectionGoals may be documented in an alternate sectionGoals may be documented in an alternate sectionGoals may be documented in an alternate section Source Comments (unrecognize d section and content) In the event this informatio n is protected by the Federal Confidentiality of Alcohol and Drug Abuse Patient Records regulations: The Federal rules restrict any use of the information to criminally investigate or prosecute any alcohol or drug abuse patient.[facility] the event this information is protected by the Federal Confidentiality of Alcohol and Drug Abuse Patient Records regulations: The Federal rules restrict any use of the information to criminally investigate or prosecute any alcohol or drug abuse patient.[facility] the event this information is protected by the Federal Confidentiality of Alcohol and Drug Abuse Patient Records regulations: The Federal rules restrict any use of the information to criminally investigate or prosecute any alcohol or drug abuse patient.[facility] the event this information is protected by the Federal Confidentiality of Alcohol and Drug Abuse Patient Records regulations: The Federal rules restrict any use of the information to criminally investigate or prosecute any alcohol or drug abuse patient.[facility] the event this information is protected by the Federal Confidentiality of Alcohol and Drug Abuse Patient Records regulations: The Federal rules restrict any use of the information to criminally investigate or prosecute any alcohol or drug abuse patient.[facility] the event this information is protected by the Federal Confidentiality of Alcohol and Drug Abuse Patient Records regulations: The Federal rules restrict any use of the information to criminally investigate or prosecute any alcohol or drug abuse patient.[facility] the event this information is protected by the Federal Confidentiality of Alcohol and Drug Abuse Patient Records regulations: The Federal rules restrict any use of the information to criminally investigate or prosecute any alcohol or drug abuse patient.[facility] HospitalIn the event this information is protected by the Federal Confidentiality of Alcohol and Drug Abuse Patient Records regulations: The Federal rules restrict any use of the information to criminally investigate or prosecute any alcohol or drug abuse patient.[facility] Hospital[facility] the event this information is protected by the Federal Confidentiality of Alcohol and Drug Abuse Patient Records regulations: The Federal rules restrict any use of the information to criminally investigate or prosecute any alcohol or drug abuse patient.[facility] HospitalIn the event this information is protected by the Federal Confidentiality of Alcohol and Drug Abuse Patient Records regulations: The Federal rules restrict any use of the information to criminally investigate or prosecute any alcohol or drug abuse patient.[facility] HospitalIn the event this information is protected by the Federal Confidentiality of Alcohol and Drug Abuse Patient Records regulations: The Federal rules restrict any use of the information to criminally investigate or prosecute any alcohol or drug abuse patient.[facility] HospitalIn the event this information is protected by the Federal Confidentiality of Alcohol and Drug Abuse Patient Records regulations: The Federal rules restrict any use of the information to criminally investigate or prosecute any alcohol or drug abuse patient.[facility] Reason for Visit (unrecogniz ed section and content) Reason Onset Date Comments Appointment 07/24/2022 Specialty Diagnoses / Procedures Referred By Contac t Referred To Contact CT IMAGING Diagnoses Nontraumatic subdural hemorrhage (HCC) Procedures CT BRAIN WO IVCON CT HEAD/BRAIN W/O CONTRAST MATERIAL Gurinder Corona, ELVIS.CARE MANAGEMENT COORDINATOR [address] [place] [address] Ct Imaging Referral ID Status Reason Start Date Expiration Date V isits Requested Visits Authorized [id number] Closed Auto-Generate d Referral 08/06/2022 08/23/2023 1 1 Reason Comments New Patient Evaluation Reason Comments Established Patient Specialty Diagnoses / Procedures Referred By Contac t Referred To Contact CT IMAGING Diagnoses SDH (subdural hematoma) Subarachnoid hemorrhage following injury, no loss of consciousness, subsequent encounter Procedures CT BRAIN WO IVCON CT HEAD/BRAIN W/O CONTRAST MATERIAL Sweta Jenkins APRN.CARE MANAGEMENT COORDINATOR [address] [facility] [place] [address] Ct Imaging Referral ID Status Reason Start Date Expiration Date V isits Requested Visits Authorized [id number] Closed Auto-Generate d Referral 08/06/2022 09/05/2023 1 1 Reason Comments New Patient Evaluation Afib Reason Comments Hearing Loss Discuss CI 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 Bashir Cortez MD Primary Care Provider Acti ve Team Status: Inactive Member Role Status Dates Dr. Bashir Cortez MD Primary Care Provider Acti ve Start: August 08, 2024 End: August 08, 2024 Dr. Bashir Cortez MD Family Provider Active Start: August 08, 2024 End: August 08, 2024 Dr. Albert Mojica MD Attending Provider Active S tart: August 08, 2024 End: August 08, 2024 Dr. Albert Mojica MD Referring Provider Active S tart: August 08, 2024 End: August 08, 2024 Dr. Ana Laura Cho MD Other Provider Active Star t: August 08, 2024 End: August 08, 2024 Dr. Chris Bradford MD Other Provider Active S tart: August 08, 2024 End: August 08, 2024 Kelli Vivas PA, PA Other Provider Active Start: August 08, 2024 End: August 08, 2024 Team Status: Inactive Member Role Status Dates Dr. Bashir Cortez MD Primary Care Provider Acti ve Start: October 03, 2024 End: October 03, 2024 Dr. Bashir Cortez MD Attending Provider Active Start: October 03, 2024 End: October 03, 2024 Dr. Bashir Cortez MD Referring Provider Active Start: October 03, 2024 End: October 03, 2024 Team Status: Inactive Member Role Status Dates Dr. Bashir Cortez MD Primary Care Provider Acti ve Start: November 21, 2024 End: November 21, 2024 Dr. Bashir Cortez MD Family Provider Active Start: November 21, 2024 End: November 21, 2024 Dr. Albert Mojica MD Attending Provider Active S tart: November 21, 2024 End: November 21, 2024 Dr. Albert Mojica MD Referring Provider Active S tart: November 21, 2024 End: November 21, 2024 Dr. Ana Laura Cho MD Other Provider Active Star t: November 21, 2024 End: November 21, 2024 Dr. Chris Bradford MD Other Provider Active S tart: November 21, 2024 End: November 21, 2024 Kelli Vivas PA, PA Other Provider Active Start: November 21, 2024 End: November 21, 2024 Dr. George Hood MD Other Provider Active Start: November 21, 2024 End: November 21, 2024 Team Status: Active Member Role Status Dates Dr. Bashir Cortez MD Primary Care Provider Acti ve Start: 2024 Dr. Bashir Cortez MD Family Provider Active Start: 2024 Dr. Albert Mojica MD Attending Provider Active S tart: 2024 Dr. Albert Mojica MD Referring Provider Active S tart: 2024 Dr. Ana Laura Cho MD Other Provider Active Star t: 2024 Dr. Chris Bradford MD Other Provider Active S tart: 2024 Kelli RAECHIGA, PA Other Provider Active Start: 2024 Dr. George Hood MD Other Provider Active Start: 2024 Team Status: Inactive Member Role Status Dates Dr. Bashir Cortez MD Primary Care Provider Acti ve Start: November 29, 2024 End: November 29, 2024 Dr. George Hood MD Attending Provider Active Start: November 29, 2024 End: November 29, 2024 Dr. George Hood MD Referring Provider Active Start: November 29, 2024 End: November 29, 2024 Web Ui Software Engineer Relationship Specialty Start Date End Date Bashir Cortez MD [address] [place] [id number] PCP - General Family Medicine 03/27/11 Web Ui Software Engineer Relationship Specialty Start Date End Date Bashir Cortez MD [address] [facility] [place], [place] [address] PCP - General Family Medicine 03/27/11 Web Ui Software Engineer Relationship Specialty Start Date End Date Bashir Cortez MD [address] [facility] [place], [place] [id number] PCP - General Family Medicine 03/27/11 Web Ui Software Engineer Relationship Specialty Start Date End Date Bashir Cortez MD [address] [facility] [place], [place] [id number] PCP - General Family Medicine 03/27/11 Web Ui Software Engineer Relationship Specialty Start Date End Date Bashir Cortez MD [address] [facility] [place], [place] [id number] PCP - General Family Medicine 03/27/11 Web Ui Software Engineer Relationship Specialty Start Date End Date Bashir Cortez MD [address] [facility] [place], [place] [address] PCP - General Family Medicine 03/27/11 Team Status: Active Member Role Status Dates Dr. Fernando Cortez MD Family Provider Active Dr. Fernando Cortez MD Primary Care Provider Activ e Team Status: Inactive Member Role Status Dates Dr. Fernando Cortez MD Primary Care Provider, Refe rring Provider Active Dr. Albert Mojica MD Attending Provider Active Team Status: Inactive Member Role Status Dates Dr. Fernando Cortez MD Primary Care Provider, Refe rring Provider Active Kelli Vivas PA, PA Attending Provider Active Team Status: Inactive Member Role Status Dates Dr. Fernando Cortez MD Primary Care Provider Activ e Dr. Bandar Reyes MD Attending Provider, Emergency Provi nini Active Team Status: Inactive Member Role Status Dates Dr. Fernando Cortez MD Primary Care Provider, Attending Provider, Referring Provider Active Web [employer] Software Engineer Relationship Specialty Start Date End Date Bashir Cortez MD [address] [place] [address] [place], [place] [id number] PCP - General Family Medicine 03/27/11 Albert Mojica [address] [id number] [phone] Specialty Field Technical Support Consultant Cardiology 10/06/22 Team Status: Inactive Member Role Status Dates Dr. Fernando Cortez MD Primary Care Provider, Fami ly Provider Active Dr. Albert Mojica MD Attending Provider, Referring Pro vider Active Team Status: Inactive Member Role Status Dates Dr. Fernando Cortez MD Primary Care Provider, Atte nding Provider Active Team Status: Inactive Member Role Status Dates Dr. Fernando Cortez MD Primary Care Provider, Fami ly Provider Active Dr. Albert Mojica MD Attending Provider, Referring Pro vider Active Dr. Ana Laura Cho MD Other Provider Active Web Ui Software Engineer Relationship Specialty Start Date End Date Bashir Cortez MD [address] [facility] [place], [place] [id number] PCP - General Family Medicine 03/27/11 Albert Mojica MD [address] [address] Specialty Field Technical Support Consultant Cardiology 10/06/22 Web Ui Software Engineer Relationship Specialty Start Date End Date Bashir Cortez MD [address] [place], [place] [address] [place] [address] PCP - General Family Medicine 03/27/11 Albert Mojica MD [address] [phone] Specialty Field Technical Support Consultant Cardiology 10/06/22 Web Ui Software Engineer Relationship Specialty Start Date End Date Bashir Cortez MD [address] [place], [place] [id number] PCP - General Family Medicine 03/27/11 Albert Mojica MD [address], [place] [address] Specialty Field Technical Support Consultant Cardiology 10/06/22 Web Ui Software Engineer Relationship Specialty Start Date End Date Bashir Cortez MD [address] [place], [place] [address]Connor [facility] [place] [address] PCP - General Family Medicine 03/27/11 Albert Mojica MD [address], [place] [id number] Specialty Field Technical Support Consultant Cardiology 10/06/22 Web Ui Software Engineer Relationship Specialty Start Date End Date Bashir Cortez MD [address] [place] [address], [place] [address] PCP - General Family Medicine 03/27/11 Albert Mojica MD [address] [place] [address] Specialty Field Technical Support Consultant Cardiology 10/06/22 Team Status: Active Member Role Status Dates Dr. Fernando Cortez MD Primary Care Provider Activ e Dr. Mike De Jesus MD Attending Provider Active Team Status: Inactive Member Role Status Dates Dr. Fernando Cortez MD Primary Care Provider, Attending Provider, Referring Provider Active Dr. Albert Mojica MD Other Provider Active Team Status: Active Member Role Status Dates Dr. Fernando Cortez MD Primary Care Provider, Refe rring Provider Active Dr. Mike De Jesus MD Attending Provider Active Team Status: Active Member Role Status Dates Dr. Bashir Cortez MD Family Provider Active Dr. Bashir Cortez MD Primary Care Provider Acti ve Team Status: Inactive Member Role Status Dates Dr. Bashir Cortez MD Primary Care Provider, Ref erring Provider Active Dr. Jacobo Oliveira MD Attending Provider Active Team Status: Inactive Member Role Status Dates Dr. Bashir Cortez MD Primary Care Provider, Ref erring Provider Active Dr. Chris Bradford MD Attending Provider Active Team Status: Inactive Member Role Status Dates Dr. Bashir Cortez MD Primary Care Provider, Ref erring Provider Active Jadon Padilla PA, PA Attending Provider Active Team Status: Inactive Member Role Status Dates Dr. Bashir Cortez MD Primary Care Provider, [facility] rossy Provider Active Dr. Albert Mojica MD Attending Provider, Referring Pro vider Active Dr. Ana Laura Cho MD Other Provider Active Team Status: Inactive Member Role Status Dates Dr. Bashir Cortez MD Primary Care Provider, Attending Provider, Referring Provider Active Team Status: Inactive Member Role Status Dates Dr. Bashir Cortez MD Primary Care Provider, Fam rossy Provider Active Dr. Albert Mojica MD Attending Provider, Referring Pro vider Active Dr. Ana Laura Cho MD Other Provider Active Dr. Chris Bradford MD Other Provider Active Team Status: Inactive Member Role Status Dates Dr. Bashir Cortez MD Primary Care Provider Acti ve Start: December 06, 2024 End: December 06, 2024 Dr. George Hood MD Attending Provider Active Start: December 06, 2024 End: December 06, 2024 Dr. George Hood MD Referring Provider Active Start: December 06, 2024 End: December 06, 2024 Team Status: Inactive Member Role Status Dates Dr. Bashir Cortez MD Primary Care Provider Acti ve Start: December 16, 2024 End: December 21, 2024 Dr. Bashir Cortez MD Family Provider Active Start: December 16, 2024 End: December 21, 2024 Dr. Albert Mojica MD Attending Provider Active S tart: December 16, 2024 End: December 21, 2024 Dr. Albert Mojica MD Referring Provider Active S tart: December 16, 2024 End: December 21, 2024 Dr. Ana Laura Cho MD Other Provider Active Star t: December 16, 2024 End: December 21, 2024 Dr. Chris Bradford MD Other Provider Active S tart: December 16, 2024 End: December 21, 2024 Kelli ARECHIGA, PA Other Provider Active Start: December 16, 2024 End: December 21, 2024 Dr. George Hood MD Other Provider Active Start: December 16, 2024 End: December 21, 2024 Team Status: Inactive Member Role Status Dates Dr. Bashir Cortez MD Primary Care Provider Acti ve Start: December 22, 2024 End: December 22, 2024 Dr. Bashir Cortez MD Referring Provider Active Start: December 22, 2024 End: December 22, 2024 Dr. Albert Mojica MD Attending Provider Active S tart: December 22, 2024 End: December 22, 2024 Team Status: Active Member Role Status Dates Dr. Bashir Cortez MD Primary Care Provider Acti ve Start: December 22, 2024 Dr. Bashir Cortez MD Family Provider Active Start: December 22, 2024 Dr. Albert Mojica MD Attending Provider Active S tart: December 22, 2024 Dr. Albert Mojica MD Referring Provider Active S tart: December 22, 2024 Dr. Ana Laura Cho MD Other Provider Active Star t: December 22, 2024 Dr. Chris Bradford MD Other Provider Active S tart: December 22, 2024 Kelli ARECHIGA, PA Other Provider Active Start: December 22, 2024 Dr. George Hood MD Other Provider Active Start: December 22, 2024 Team Status: Inactive Member Role Status Dates Dr. Bashir Cortez MD Primary Care Provider Acti ve Start: January 04, 2025 End: January 04, 2025 Dr. Bashir Cortez MD Attending Provider Active Start: January 04, 2025 End: January 04, 2025 Dr. Bashir Cortez MD Referring Provider Active Start: January 04, 2025 End: January 04, 2025 Team Status: Inactive Member Role Status Dates Dr. Bashir Cortez MD Primary Care Provider Acti ve Start: January 09, 2025 End: January 09, 2025 Dr. Bashir Cortez MD Referring Provider Active Start: January 09, 2025 End: January 09, 2025 Dr. Chris Bradford MD Attending Provider Active Start: January 09, 2025 End: January 09, 2025 Team Status: Inactive Member Role Status Dates Dr. Bashir Cortez MD Primary Care Provider Acti ve Start: December 22, 2024 End: December 22, 2024 Dr. Bashir Cortez MD Family Provider Active Start: December 22, 2024 End: December 22, 2024 Dr. Albert Mojica MD Attending Provider Active S tart: December 22, 2024 End: December 22, 2024 Dr. Albert Mojica MD Referring Provider Active S tart: December 22, 2024 End: December 22, 2024 Dr. Ana Laura Cho MD Other Provider Active Star t: December 22, 2024 End: December 22, 2024 Dr. Chris Bradford MD Other Provider Active S tart: December 22, 2024 End: December 22, 2024 Kelli Vivas PA, PA Other Provider Active Start: December 22, 2024 End: December 22, 2024 Dr. George Hood MD Other Provider Active Start: December 22, 2024 End: December 22, 2024 Team Status: Active Member Role Status Dates Dr. Bashir Cortez MD Primary Care Provider Acti ve Start: January 21, 2025 Dr. George Hood MD Attending Provider Active Start: January 21, 2025 Team Status: Inactive Member Role Status Dates Dr. Basihr Cortez MD Primary Care Provider Acti ve Start: January 21, 2025 End: January 21, 2025 Dr. George Hood MD Attending Provider Active Start: January 21, 2025 End: January 21, 2025 Team Status: Active Member Role Status Dates Dr. Bashir Cortez MD Primary Care Provider Acti ve Start: February 06, 2025 Dr. Albert Mojica MD Attending Provider Active S tart: February 06, 2025 Dr. Albert Mojica MD Referring Provider Active S tart: February 06, 2025 Team Status: Active Member Role Status Dates Dr. Bashir Cortez MD Primary Care Provider Acti ve Start: February 06, 2025 Dr. Albert Mojica MD Attending Provider Active S tart: February 06, 2025 Team Status: Inactive Member Role Status Dates Dr. Bashir Cortez MD Primary Care Provider Acti ve Start: February 07, 2025 End: February 07, 2025 Dr. Bashir Cortez MD Referring Provider Active Start: February 07, 2025 End: February 07, 2025 Dr. Albert Mojica MD Attending Provider Active S tart: February 07, 2025 End: February 07, 2025 Team Status: Inactive Member Role Status Dates Dr. Bashir Cortez MD Primary Care Provider Acti ve Start: February 06, 2025 End: February 06, 2025 Dr. Albert Mojica MD Attending Provider Active S tart: February 06, 2025 End: February 06, 2025 Dr. Albert Mojica MD Referring Provider Active S tart: February 06, 2025 End: February 06, 2025 Team Status: Active Member Role Status Dates Dr. Bashir Cortez MD Primary Care Provider Acti ve Start: February 07, 2025 Dr. Albert Mojica MD Attending Provider Active S tart: February 07, 2025 Dr. Albert Mojica MD Referring Provider Active S tart: February 07, 2025 Team Status: Inactive Member Role Status Dates Dr. Bashir Cortez MD Primary Care Provider Acti ve Start: February 07, 2025 End: February 07, 2025 Dr. Albert Mojica MD Attending Provider Active S tart: February 07, 2025 End: February 07, 2025 Dr. Albert Mojica MD Referring Provider Active S tart: February 07, 2025 End: February 07, 2025 Team Status: Active Member Role/Relationship Status Dates Dr. Bashir Cortez MD Family Provider Active Dr. Bashir Cortez MD Primary Care Provider Acti ve Team Status: Inactive Member Role/Relationship Status Dates Dr. Bashir Cortez MD Primary Care Provider Acti ve Start: November 21, 2024 End: November 21, 2024 Dr. Bashir Cortez MD Family Provider Active Start: November 21, 2024 End: November 21, 2024 Dr. Albert Mojica MD Attending Provider Active S tart: November 21, 2024 End: November 21, 2024 Dr. Albert Mojica MD Referring Provider Active S tart: November 21, 2024 End: November 21, 2024 Dr. Ana Laura Cho MD Other Provider Active Star t: November 21, 2024 End: November 21, 2024 Dr. Chris Bradford MD Other Provider Active S tart: November 21, 2024 End: November 21, 2024 Kelli Vivas PA, PA Other Provider Active Start: November 21, 2024 End: November 21, 2024 Dr. George Hood MD Other Provider Active Start: November 21, 2024 End: November 21, 2024 Team Status: Inactive Member Role/Relationship Status Dates Dr. Bashir Cortez MD Primary Care Provider Acti ve Start: November 29, 2024 End: November 29, 2024 Dr. George Hood MD Attending Provider Active Start: November 29, 2024 End: November 29, 2024 Dr. George Hood MD Referring Provider Active Start: November 29, 2024 End: November 29, 2024 Team Status: Inactive Member Role/Relationship Status Dates Dr. Bashir Cortez MD Primary Care Provider Acti ve Start: December 06, 2024 End: December 06, 2024 Dr. George Hood MD Attending Provider Active Start: December 06, 2024 End: December 06, 2024 Dr. George Hood MD Referring Provider Active Start: December 06, 2024 End: December 06, 2024 Team Status: Inactive Member Role/Relationship Status Dates Dr. Bashir Cortez MD Primary Care Provider Acti ve Start: December 16, 2024 End: December 21, 2024 Dr. Bashir Cortez MD Family Provider Active Start: December 16, 2024 End: December 21, 2024 Dr. Albert Mojica MD Attending Provider Active S tart: December 16, 2024 End: December 21, 2024 Dr. Albert Mojica MD Referring Provider Active S tart: December 16, 2024 End: December 21, 2024 Dr. Ana Laura Cho MD Other Provider Active Star t: December 16, 2024 End: December 21, 2024 Dr. Chris Bradford MD Other Provider Active S tart: December 16, 2024 End: December 21, 2024 Kelli Vivas PA, PA Other Provider Active Start: December 16, 2024 End: December 21, 2024 Dr. George Hood MD Other Provider Active Start: December 16, 2024 End: December 21, 2024 Team Status: Inactive Member Role/Relationship Status Dates Dr. Bashir Cortez MD Primary Care Provider Acti ve Start: December 22, 2024 End: December 22, 2024 Dr. Bashir Cortez MD Referring Provider Active Start: December 22, 2024 End: December 22, 2024 Dr. Albert Mojica MD Attending Provider Active S tart: December 22, 2024 End: December 22, 2024 Team Status: Inactive Member Role/Relationship Status Dates Dr. Bashir Cortez MD Primary Care Provider Acti ve Start: December 22, 2024 End: December 22, 2024 Dr. Bashir Cortez MD Family Provider Active Start: December 22, 2024 End: December 22, 2024 Dr. Albert Mojica MD Attending Provider Active S tart: December 22, 2024 End: December 22, 2024 Dr. Albert Mojica MD Referring Provider Active S tart: December 22, 2024 End: December 22, 2024 Dr. Ana Laura Cho MD Other Provider Active Star t: December 22, 2024 End: December 22, 2024 Dr. Chris Bradford MD Other Provider Active S tart: December 22, 2024 End: December 22, 2024 Kelli ARECHIGA, PA Other Provider Active Start: December 22, 2024 End: December 22, 2024 Dr. George Hood MD Other Provider Active Start: December 22, 2024 End: December 22, 2024 Team Status: Inactive Member Role/Relationship Status Dates Dr. Bashir Cortez MD Primary Care Provider Acti ve Start: January 04, 2025 End: January 04, 2025 Dr. Bashir Cortez MD Attending Provider Active Start: January 04, 2025 End: January 04, 2025 Dr. Bashir Cortez MD Referring Provider Active Start: January 04, 2025 End: January 04, 2025 Team Status: Inactive Member Role/Relationship Status Dates Dr. Bashir Cortez MD Primary Care Provider Acti ve Start: January 09, 2025 End: January 09, 2025 Dr. Bashir Cortez MD Referring Provider Active Start: January 09, 2025 End: January 09, 2025 Dr. Chris Bradford MD Attending Provider Active Start: January 09, 2025 End: January 09, 2025 Team Status: Inactive Member Role/Relationship Status Dates Dr. Bashir Cortez MD Primary Care Provider Acti ve Start: January 21, 2025 End: January 21, 2025 Dr. George Hood MD Attending Provider Active Start: January 21, 2025 End: January 21, 2025 Team Status: Inactive Member Role/Relationship Status Dates Dr. Bashir Cortez MD Primary Care Provider Acti ve Start: February 06, 2025 End: February 06, 2025 Dr. Albert Mojica MD Attending Provider Active S tart: February 06, 2025 End: February 06, 2025 Dr. Albert Mojica MD Referring Provider Active S tart: February 06, 2025 End: February 06, 2025 Team Status: Active Member Role/Relationship Status Dates Dr. Bashir Cortez MD Primary Care Provider Acti ve Start: February 06, 2025 Dr. Albert oMjica MD Attending Provider Active S tart: February 06, 2025 Team Status: Inactive Member Role/Relationship Status Dates Dr. Bashir Cortez MD Primary Care Provider Acti ve Start: February 07, 2025 End: February 07, 2025 Dr. Bashir Cortez MD Referring Provider Active Start: February 07, 2025 End: February 07, 2025 Dr. Albert Mojica MD Attending Provider Active S tart: February 07, 2025 End: February 07, 2025 Team Status: Inactive Member Role/Relationship Status Dates Dr. Bashir Cortez MD Primary Care Provider Acti ve Start: February 07, 2025 End: February 07, 2025 Dr. Albert Mojica MD Attending Provider Active S tart: February 07, 2025 End: February 07, 2025 Dr. Albert Mojica MD Referring Provider Active S tart: February 07, 2025 End: February 07, 2025 Team Status: Inactive Member Role/Relationship Status Dates Dr. Bashir Cortez MD Primary Care Provider Acti ve Start: March 02, 2025 End: March 02, 2025 Dr. Smith Pichardo MD Attending Provider Active Start: March 02, 2025 End: March 02, 2025 Dr. Smith Pichardo MD Referring Provider Active Start: March 02, 2025 End: March 02, 2025 Team Status: Active Member Role/Relationship Status Dates Dr. Bashir Cortez MD Primary Care Provider Acti ve Start: March 02, 2025 Dr. Mike De Jesus MD Attending Provider Active S tart: March 02, 2025 Team Status: Active Member Role/Relationship Status Dates Dr. Bashir Cortez MD Primary Care Provider Acti ve Start: March 06, 2025 Dr. Bashir Cortez MD Family Provider Active Start: March 06, 2025 Dr. Albert Mojica MD Attending Provider Active S tart: March 06, 2025 Dr. Albert Mojica MD Referring Provider Active S tart: March 06, 2025 Dr. Ana Laura Cho MD Other Provider Active Star t: March 06, 2025 Dr. Chris Bradford MD Other Provider Active S tart: March 06, 2025 Kelli Vivas PA, PA Other Provider Active Start: March 06, 2025 Dr. George Hood MD Other Provider Active Start: March 06, 2025 Team Status: Active Member Role/Relationship Status Dates Dr. Bashir Cortez MD Primary Care Provider Acti ve Team Status: Inactive Member Role/Relationship Status Dates Dr. Bashir Cortez MD Primary Care Provider Acti ve Start: March 10, 2025 End: March 10, 2025 Dr. George Hood MD Attending Provider Active Start: March 10, 2025 End: March 10, 2025 Dr. George Hood MD Referring Provider Active Start: March 10, 2025 End: March 10, 2025 Team Status: Active Member Role/Relationship Status Dates Dr. Bashir Cortez MD Primary Care Provider Acti ve Start: March 13, 2025 Dr. Bashir Cortez MD Family Provider Active Start: March 13, 2025 Dr. Albert Mojica MD Attending Provider Active S tart: March 13, 2025 Dr. Albert Mojica MD Referring Provider Active S tart: March 13, 2025 Dr. Ana Laura Cho MD Other Provider Active Star t: March 13, 2025 Dr. Chris Bradford MD Other Provider Active S tart: March 13, 2025 Kelli Vivas PA, PA Other Provider Active Start: March 13, 2025 Dr. George Hood MD Other Provider Active Start: March 13, 2025 Team Status: Active Member Role/Relationship Status Dates Dr. Bashir Cortez MD Primary Care Provider Acti ve Start: March 17, 2025 Dr. Bashir Cortez MD Family Provider Active Start: March 17, 2025 Dr. Albert Mojica MD Attending Provider Active S tart: March 17, 2025 Dr. Albert Mojica MD Referring Provider Active S tart: March 17, 2025 Dr. Ana Laura Cho MD Other Provider Active Star t: March 17, 2025 Dr. Chris Bradford MD Other Provider Active S tart: March 17, 2025 Kelli ARECHIGA, PA Other Provider Active Start: March 17, 2025 Dr. George Hood MD Other Provider Active Start: March 17, 2025 Team Status: Inactive Member Role/Relationship Status Dates Dr. Bashir Cortez MD Primary Care Provider Acti ve Start: March 17, 2025 End: March 17, 2025 Dr. Bashir Cortez MD Referring Provider Active Start: March 17, 2025 End: March 17, 2025 Kelli Vivas PA, PA Attending Provider Active Start: March 17, 2025 End: March 17, 2025 Team Status: Inactive Member Role/Relationship Status Dates Dr. Bashir Cortez MD Primary Care Provider Acti ve Start: November 29, 2024 End: November 29, 2024 Dr. George Hood MD Attending Provider Active Start: November 29, 2024 End: November 29, 2024 Dr. George Hood MD Referring Provider Active Start: November 29, 2024 End: November 29, 2024 Team Status: Inactive Member Role/Relationship Status Dates Dr. Bashir Cortez MD Primary Care Provider Acti ve Start: December 06, 2024 End: December 06, 2024 Dr. George Hood MD Attending Provider Active Start: December 06, 2024 End: December 06, 2024 Dr. George Hood MD Referring Provider Active Start: December 06, 2024 End: December 06, 2024 Team Status: Inactive Member Role/Relationship Status Dates Dr. Bashir Cortez MD Primary Care Provider Acti ve Start: December 16, 2024 End: December 21, 2024 Dr. Bashir Cortez MD Family Provider Active Start: December 16, 2024 End: December 21, 2024 Dr. Albert Mojica MD Attending Provider Active S tart: December 16, 2024 End: December 21, 2024 Dr. Albert Mojica MD Referring Provider Active S tart: December 16, 2024 End: December 21, 2024 Dr. Ana Laura Cho MD Other Provider Active Star t: December 16, 2024 End: December 21, 2024 Dr. Chris Bradford MD Other Provider Active S tart: December 16, 2024 End: December 21, 2024 Kelli ARECHIGA, PA Other Provider Active Start: December 16, 2024 End: December 21, 2024 Dr. George Hood MD Other Provider Active Start: December 16, 2024 End: December 21, 2024 Team Status: Inactive Member Role/Relationship Status Dates Dr. Bashir Cortez MD Primary Care Provider Acti ve Start: December 22, 2024 End: December 22, 2024 Dr. Bashir Cortez MD Referring Provider Active Start: December 22, 2024 End: December 22, 2024 Dr. Albert Mojica MD Attending Provider Active S tart: December 22, 2024 End: December 22, 2024 Team Status: Inactive Member Role/Relationship Status Dates Dr. Bashir Cortez MD Primary Care Provider Acti ve Start: December 22, 2024 End: December 22, 2024 Dr. Bashir Cortez MD Family Provider Active Start: December 22, 2024 End: December 22, 2024 Dr. Albert Mojica MD Attending Provider Active S tart: December 22, 2024 End: December 22, 2024 Dr. Albert Mojica MD Referring Provider Active S tart: December 22, 2024 End: December 22, 2024 Dr. Ana Laura Cho MD Other Provider Active Star t: December 22, 2024 End: December 22, 2024 Dr. Chris Bradford MD Other Provider Active S tart: December 22, 2024 End: December 22, 2024 Kelli Vivas PA, PA Other Provider Active Start: December 22, 2024 End: December 22, 2024 Dr. George Hood MD Other Provider Active Start: December 22, 2024 End: December 22, 2024 Team Status: Inactive Member Role/Relationship Status Dates Dr. Bashir Cortez MD Primary Care Provider Acti ve Start: January 04, 2025 End: January 04, 2025 Dr. Bashir Cortez MD Attending Provider Active Start: January 04, 2025 End: January 04, 2025 Dr. Bashir Cortez MD Referring Provider Active Start: January 04, 2025 End: January 04, 2025 Team Status: Inactive Member Role/Relationship Status Dates Dr. Bashir Cortez MD Primary Care Provider Acti ve Start: January 09, 2025 End: January 09, 2025 Dr. Bashir Cortez MD Referring Provider Active Start: January 09, 2025 End: January 09, 2025 Dr. Chris Bradford MD Attending Provider Active Start: January 09, 2025 End: January 09, 2025 Team Status: Inactive Member Role/Relationship Status Dates Dr. Bashir Cortez MD Primary Care Provider Acti ve Start: January 21, 2025 End: January 21, 2025 Dr. George Hood MD Attending Provider Active Start: January 21, 2025 End: January 21, 2025 Team Status: Inactive Member Role/Relationship Status Dates Dr. Bashir Cortez MD Primary Care Provider Acti ve Start: February 06, 2025 End: February 06, 2025 Dr. Albert Mojica MD Attending Provider Active S tart: February 06, 2025 End: February 06, 2025 Dr. Albert Mojica MD Referring Provider Active S tart: February 06, 2025 End: February 06, 2025 Team Status: Active Member Role/Relationship Status Dates Dr. Bashir Cortez MD Primary Care Provider Acti ve Start: February 06, 2025 Dr. Albert Mojica MD Attending Provider Active S tart: February 06, 2025 Team Status: Inactive Member Role/Relationship Status Dates Dr. Bashir Cortez MD Primary Care Provider Acti ve Start: February 07, 2025 End: February 07, 2025 Dr. Bashir Cortez MD Referring Provider Active Start: February 07, 2025 End: February 07, 2025 Dr. Albert Mojica MD Attending Provider Active S tart: February 07, 2025 End: February 07, 2025 Team Status: Inactive Member Role/Relationship Status Dates Dr. Bashir Cortez MD Primary Care Provider Acti ve Start: February 07, 2025 End: February 07, 2025 Dr. Albert Mojica MD Attending Provider Active S tart: February 07, 2025 End: February 07, 2025 Dr. Albert Mojica MD Referring Provider Active S tart: February 07, 2025 End: February 07, 2025 Team Status: Inactive Member Role/Relationship Status Dates Dr. Bashir Cortez MD Primary Care Provider Acti ve Start: March 02, 2025 End: March 02, 2025 Dr. Smith Pichardo MD Attending Provider Active Start: March 02, 2025 End: March 02, 2025 Dr. Smith Pichardo MD Referring Provider Active Start: March 02, 2025 End: March 02, 2025 Team Status: Active Member Role/Relationship Status Dates Dr. Bashir Cortez MD Primary Care Provider Acti ve Start: March 02, 2025 Dr. Mike De Jesus MD Attending Provider Active S tart: March 02, 2025 Team Status: Inactive Member Role/Relationship Status Dates Dr. Bashir Cortez MD Primary Care Provider Acti ve Start: March 10, 2025 End: March 10, 2025 Dr. George Hood MD Attending Provider Active Start: March 10, 2025 End: March 10, 2025 Dr. George Hood MD Referring Provider Active Start: March 10, 2025 End: March 10, 2025 Team Status: Inactive Member Role/Relationship Status Dates Dr. Bashir Cortez MD Primary Care Provider Acti ve Start: March 17, 2025 End: March 23, 2025 Dr. Bashir oCrtez MD Family Provider Active Start: March 17, 2025 End: March 23, 2025 Dr. Albert Mojica MD Attending Provider Active S tart: March 17, 2025 End: March 23, 2025 Dr. Albert Mojica MD Referring Provider Active S tart: March 17, 2025 End: March 23, 2025 Dr. Ana Laura Cho MD Other Provider Active Star t: March 17, 2025 End: March 23, 2025 Dr. Chris Bradford MD Other Provider Active S tart: March 17, 2025 End: March 23, 2025 Kelli Vivas PA, PA Other Provider Active Start: March 17, 2025 End: March 23, 2025 Dr. George Hood MD Other Provider Active Start: March 17, 2025 End: March 23, 2025 Team Status: Inactive Member Role/Relationship Status Dates Dr. Bashir Cortez MD Primary Care Provider Acti ve Start: March 17, 2025 End: March 17, 2025 Dr. Bashir Cortez MD Referring Provider Active Start: March 17, 2025 End: March 17, 2025 Kelli Vivas PA, PA Attending Provider Active Start: March 17, 2025 End: March 17, 2025 (unrecognized sect ion and content) No Status Records FoundNo Status Records FoundNo Status Records FoundNo Status Records Found INFORMATION SOURCE (unrecogn ized section and content) DATE CREATED AUTHOR 08/14/2022 [facility] DATE CREATED AUTHOR AUTHOR'S ORGANIZ ATION 10/07/2022 [facility] DATE CREATED AUTHOR AUTHOR'S ORGANIZ ATION 04/26/2024 [facility] DATE CREATED AUTHOR AUTHOR'S ORGANIZ ATION 04/08/2025 [facility] FOR RECORDS PERTAINING TO PATIENTS WHO ARE OR HAVE BEEN ENROLLED IN A CHEMICAL DEPENDENCY/SUBSTANCEABUSE PROGRAM, SOME INFORMATION MAY BE OMITTED. This clinical summary was aggregated from multiple sources. Caution should be exercised in using it in the provision of clinical care. This summary normalizes information from multiple sources, and as a consequence, information in this document may materially change the coding, format and clinical context of patient data. In addition, data may be omitted in some cases. CLINICAL DECISIONS SHOULD BE BASED ON THE PRIMARY CLINICAL RECORDS. [facility]. provides no warranty or guarantee of the accuracy or completeness of information in this document.
--- NOTE | 2025-04-17 17:46 | STRESSREP ---
Stress Test Report Exercise myocardial perfusion stress test. 89-year-old man with a history of coronary artery disease, coronary bypass surgery, valvular heart disease, atrial fibrillation, status post aortic valve replacement. Stress protocol: Resting EKG demonstrates atrial fibrillation rhythm, right bundle branch block, with a rate of 61 bpm resting blood pressure is 112/70 mmHg. The patient exercised according to the regular Mani protocol for a total duration of 3 minutes attaining a maximum heart rate of 113 bpm which was 84% of maximum predicted heart rate; the maximum workload was 4.6 metabolic equivalents. At rest there were no ST or T wave changes noted to suggest ischemia and at peak exercise upsloping ST changes only were noted which did not meet the criteria for ischemia. No clinical angina was noted the test was terminated due to the target heart rate being achieved/fatigue. The peak blood pressure was 148/64 mmHg. Rate-pressure product was 14,500. The patient did develop significant dyspnea with exertion. Myocardial perfusion protocol. 11.5 mCi of technetium 99m sestamibi was injected at rest. The patient exercised according to regular Mani protocol for total duration of 3 minutes and at peak exercise 34.9 mCi of technetium 99m sestamibi was injected stress images were obtained stress and rest images were reconstructed in comparing the short axis vertical long and horizontal long axis. Gated images were also obtained. Perfusion SPECT analysis: Review of the stress images demonstrate normal uptake of tracer noted in all areas of the myocardium. The resting images similarly demonstrate normal uptake of tracer noted in all areas of the myocardium. No areas of reversibility are noted to suggest ischemia no previous infarct was noted. Gated SPECT analysis: The gated ejection fraction is 77%. Conclusion: Normal exercise myocardial perfusion stress test at a low workload.
== END | disposition home or self-care (01) ==
PROVIDERS: PCP Family Medicine; Referring Provider Physician Assistant Medical; Visit Provider Physician Assistant Medical
DX: R06.02 Shortness of breath (principal); R07.9 Chest pain, unspecified
CPT/HCPCS: 78452; 93017; A9500; A4216

== ENCOUNTER → 2025-04-28 | Outpatient (CLI) | payer MEDICARE, SELFPAY | END | disposition home or self-care (01) | LOC: LABSPEC 15:31 | PROVIDERS: PCP Family Medicine; Referring Provider Internal Medicine Pulmonary Disease; Visit Provider Internal Medicine Pulmonary Disease | DX: J84.10 Pulmonary fibrosis, unspecified (principal); I27.20 Pulmonary hypertension, unspecified | CPT/HCPCS: 87070; 87205 ==

== ENCOUNTER 2025-05-17 13:45 | Outpatient (RCR) | payer MEDICARE, SELFPAY ==
[2025-05-03 11:19] LABS: AST(SGOT) 34 U/L (<=37); Alanine Aminotransfer ALT/SGPT 18 U/L (<=46); Albumin, Serum 4.6 g/dL (3.4-4.8); Alkaline Phosphatase 96 U/L (40-129); Bilirubin, Direct 0.68 mg/dL (0.00-0.30); Globulin 2.8 g/dL (2.2-4.2); Pro- Brain NATRIURETIC PEPTIDE 2310 pg/mL (<=1800)
[2025-05-03 12:35] LABS: INR Fingerstick 6.3
[2025-05-05 10:52] LABS: Prothrombin Time (Protime)PT. 38.5 SECONDS (11.7-14.9)
[2025-05-05 22:35] LABS: INR Fingerstick 4.0
[2025-05-17 13:51] LABS: INR Fingerstick 2.9
== END 2025-05-23 18:00 | disposition home or self-care (01) ==
LOC: LAB 13:45
PROVIDERS: Family Provider Family Medicine; PCP Family Medicine; Referring Provider Internal Medicine Cardiovascular Disease; Visit Provider Internal Medicine Cardiovascular Disease
DX: I48.11 Longstanding persistent atrial fibrillation; Z95.2 Presence of prosthetic heart valve; Z79.01 Long term (current) use of anticoagulants; I27.20 Pulmonary hypertension, unspecified
CPT/HCPCS: 36415; 36416; 80076; 83880; 85610

== ENCOUNTER 2025-07-03 10:59 | Outpatient (RCR) | payer MEDICARE, SELFPAY ==
[2025-07-03 11:13] LABS: INR Fingerstick 3.2
== END 2025-07-22 18:00 | disposition home or self-care (01) ==
LOC: LAB 10:59
PROVIDERS: Family Provider Family Medicine; PCP Family Medicine; Referring Provider Internal Medicine Cardiovascular Disease; Visit Provider Internal Medicine Cardiovascular Disease
DX: I48.11 Longstanding persistent atrial fibrillation; Z95.2 Presence of prosthetic heart valve; Z79.01 Long term (current) use of anticoagulants
CPT/HCPCS: 36416; 85610